=== PATIENT | male | born 1935 | race Caucasian/White ===

== ENCOUNTER 2017-03-10 09:20 | Outpatient (CLI) | payer MEDICARE, BC ==
--- NOTE | 2017-03-10 10:13 | RAD ---
2 VIEWS CHEST: Date: 03/10/17 HISTORY: Dyspnea. COMPARISON: 03/05/17. FINDINGS: Enlarged cardiac silhouette. Pulmonary vessels are prominent. There is atherosclerotic of the aorta. Blunting of the right costophrenic angle. Patchy interstitial opacities are noted. No pneumothorax. D iffuse bone demineralization identified. IMPRESSION: Congestive heart failure. POS: [facility]
== END 2017-03-10 09:21 | disposition home or self-care (01) ==
LOC: RAD 09:20
PROVIDERS: ATTEND Internal Medicine Critical Care Medicine
DX: R06.00 Dyspnea, unspecified (principal); I50.9 Heart failure, unspecified
CPT/HCPCS: 71020

== ENCOUNTER 2017-04-04 11:08 | Emergency (ER) | payer MEDICARE, BC ==
--- NOTE | 2017-04-04 12:20 | RAD ---
PA AND LATERAL CHEST: Date: 04/04/17 HISTORY: Chest pain and shortness of breath. Generalized weakness. COMPARISON: 03/10/17. FINDINGS: There is persistent blunting of the right lateral costophrenic angle which may be related to mild ple ural and parenchymal scarring or persistent very small right pleural effusion. There is increased den sity at the left lung base, which is likely related to superimposition of structures. Lungs are other spain clear. Cardiac silhouette is mildly enlarged. Pulmonary vasculature is within normal limits. Vascular calcif ications seen in thoracic aorta. Mild degenerative changes seen in the spine. IMPRESSION: 1. Persistent blunting of right lateral costophrenic angle which may be related to either a persiste nt small right pleural effusion versus pleural and parenchymal scarring. 2. Increased density left lung base, most likely attributable to superimposition of structures. POS: [facility]
[2017-04-04 12:35] LABS: #Basophils 0.1 thou/uL (0.0-0.2); #Eosinphils 0.5 thou/uL (0.0-0.7); #Lymphocytes 1.2 thou/uL (1.20-3.40); #Monocytes 0.4 thou/uL (0.11-0.59); #Neutrophils 4.9 thou/uL (1.40-6.50); %Basophils 1.6 % (0.0-1.0); %Eosinophils 6.7 % (0.0-10.0); %Lymphocytes 16.8 % (21.0-51.0); %Monocytes 5.3 % (0.0-10.0); Hematocrit 40.5 % (42.0-52.0); Red Blood Cell (RBC) Count 4.23 mill/uL (4.70-6.10)
[2017-04-04 12:41] LABS: PTT 41.5 SEC (22.9-36.1)
[2017-04-04 12:51] LABS: Troponin I 0.018 ng/mL (< 0.028)
[2017-04-04 12:54] LABS: ALT (SGPT) 21 U/L (8-55); AST (SGOT) 20 U/L (5-34); Alkaline Phosphatase 108 U/L (40-150); Anion Gap 14 mmol/L (10-20); BUN (Urea Nitrogen) 28 mg/dL (8.4-25.7); Bilirubin, Total 2.1 mg/dL (0.2-1.2); CK (CPK) 52 U/L (30-200); Calc. Creatinine Clearance 0 mL/min (70-130); Calcium 10.1 mg/dL (7.8-10.44); Carbon Dioxide 30 mmol/L (23-31); Chloride 95 mmol/L (98-107); Estimated GFR-MDRD 44; Globulin 4.5 g/dL (2.4-3.5); Lipase 37 U/L (8-78); Protein, Total 8.3 g/dL (5.8-8.1)
--- NOTE | 2017-04-04 14:56 | CT ---
CTA OF THE CHEST WITH CONTRAST; Date: 04/04/17 COMPARISON: None. HISTORY: Generalized weakness and muscles spasms for a week. Chest pain and elevated D-Dimer. TECHNIQUE: Multiple contiguous axial images were obtained in a CTA of the chest with contrast per pulmonary embo lism protocol. 3D oblique MIP reformats and direct coronal reformats were performed. FINDINGS: The pulmonary arteries are well opacified without filling defects to suggest pulmonary emboli. The he art is enlarged. Calcifications are seen in the coronary arteries and aorta. No hilar or mediastinal lymphadenopathy seen. There are small bilateral pleural effusions. No focal infiltrates are seen. No pneumothorax is seen. No suspicious pulmonary nodules are present. Mild degenerative changes are seen in the spine. There is a small amount of ascites in the upper abdo men. IMPRESSION: 1. No evidence of pulmonary thromboembolism. 2. Small bilateral pleural effusions. 3. Small ascites. POS: [facility]
== END 2017-04-04 15:35 | disposition home or self-care (01) ==
LOC: SCSER 11:08
DX: R07.89 Other chest pain (principal); I48.91 Unspecified atrial fibrillation; E03.9 Hypothyroidism, unspecified; I10 Essential (primary) hypertension; E11.9 Type 2 diabetes mellitus without complications; Z79.4 Long term (current) use of insulin; Z86.711 Personal history of pulmonary embolism
CPT/HCPCS: 71020; 71275; 80053; 82550; 82553; 83690; 83880; 84484; 85025; 85379; 85610; 85730; 93005; 96361; 96374; J2270

== ENCOUNTER 2017-04-27 13:38 | Inpatient (IN) | payer MEDICARE ==
[2017-04-27 14:41] LABS: #Basophils 0.1 thou/uL (0.0-0.2); #Eosinphils 0.5 thou/uL (0.0-0.7); #Monocytes 0.4 thou/uL (0.11-0.59); #Neutrophils 4.6 thou/uL (1.40-6.50); %Basophils 1.1 % (0.0-1.0); %Eosinophils 7.6 % (0.0-10.0); %Lymphocytes 15.4 % (21.0-51.0); %Monocytes 5.6 % (0.0-10.0); %Neutrophils 70.4 % (42.0-75.0); Mean Corpuscular HGB CONC 33.2 g/dL (32.0-36.0); Mean Corpuscular Hemoglobin 31.2 pg (27.0-31.0); Platelet Count 225 thou/uL (130-400); RBC Distribution Width 13.5 % (11.5-14.5); Red Blood Cell (RBC) Count 4.81 mill/uL (4.70-6.10); White Blood Cell (WBC) Count 6.5 thou/uL (4.8-10.8)
[2017-04-27 14:45] LABS: Base Excess 10.5 mEq/L (-2 - +2); Hemoglobin (Hb) 15.3 g/dL (12.6-17.4)
[2017-04-27 14:47] LABS: pH (venous) 7.49 (7.35-7.45)
[2017-04-27 14:48] LABS: Bilirubin Negative (Negative); Blood, Urine Trace (Negative); Clarity Clear (Clear); Glucose, Urine (Dipstick) 500 mg/dL (Negative); Leukocyte Negative (Negative); Nitrite Negative (Negative); Protein, Urine (Dipstick) 30 mg/dL (Neg-Trace); Urobilinogen 0.2 mg/dL (0.2-1.0)
[2017-04-27 14:54] LABS: Bacteria/HPF Rare-Few HPF (None Seen); RBC/HPF 0-3 HPF (0-3); Squamous Epithelial 0-3 HPF (0-3); WBC/HPF 0-3 HPF (0-3)
[2017-04-27 14:59] LABS: ALT (SGPT) 18 U/L (8-55); AST (SGOT) 26 U/L (5-34); Albumin 4.2 g/dL (3.4-4.8); Alkaline Phosphatase 82 U/L (40-150); Anion Gap 18 mmol/L (10-20); BUN (Urea Nitrogen) 48 mg/dL (8.4-25.7); Bilirubin, Total 2.2 mg/dL (0.2-1.2); CKMB 1.7 ng/mL (0-6.6); Calc. Creatinine Clearance 0 mL/min (70-130); Carbon Dioxide 33 mmol/L (23-31); Chloride 80 mmol/L (98-107); Estimated GFR-MDRD 31; Globulin 5.1 g/dL (2.4-3.5); Lipase 60 U/L (8-78); Potassium 3.6 mmol/L (3.5-5.1); Protein, Total 9.3 g/dL (5.8-8.1); Sodium 127 mmol/L (136-145); Troponin I 0.049 ng/mL (< 0.028)
[2017-04-27 15:01] LABS: Glucose 760 mg/dL (83-110)
--- NOTE | 2017-04-27 15:03 | RAD ---
CHEST ONE VIEW: History: Cough. Comparison: 04-04-17 FINDINGS: Heart size is enlarged. Chronic appearing effusions or scarring is seen bilaterally, similar. No pneu mothorax. Mild pulmonary venous congestion. IMPRESSION: Similar appearance of the chest with cardiomegaly, mild pulmonary congestion, chronic effusions versu s extrapleural thickening. When comparing to the CT of 04-04-17, pleural thickening is favored. POS: [facility]
[2017-04-27] MEDS ORDERED: Insulin Regular 300 UNITS/3 ML VIAL ONE (15:12)
[2017-04-27] MEDS ORDERED: Sodium Chloride 0.9% 100 ML ONE (15:16)
[2017-04-27 17:28] VITALS: BMI 34.1
[2017-04-27 17:53] LABS: Glucose Accucheck Confirmation 599 mg/dl (83-110)
[2017-04-27] MEDS ORDERED: Ondansetron HCl/PF 4 MG/2 ML Vial IVP PRN (18:12)
[2017-04-27] MEDS ORDERED: Ondansetron ODT 4 MG TAB SL PRN (18:12)
[2017-04-27] MEDS ORDERED: Sodium Chloride 0.9% 1,000 ML IV SCH (18:15)
[2017-04-27] MEDS ORDERED: Guaifenesin DM 100-10/5 ML UDCUP PO PRN (18:28)
[2017-04-27] MEDS ORDERED: Dextrose 50% Abboject 50 ML SYRINGE SLOW IVP PRN (18:28)
[2017-04-27] MEDS ORDERED: Dextrose 5% in Water 1,000 ML IV PRN (18:28)
[2017-04-27] MEDS ORDERED: HumaLOG 300 UNITS/3 ML VIAL SC PRN (18:28)
[2017-04-27] MEDS ORDERED: Milk Of Magnesia 30 ML UDCUP PO PRN (18:28)
[2017-04-27] MEDS ORDERED: Sodium Chloride 0.9% 1,000 ML IV PRN ×4 (18:31)
[2017-04-27] MEDS ORDERED: CCU Electrolyte Replacement 1 EACH IVPB SCH (18:31)
[2017-04-27] MEDS ORDERED: D5 1/2 NS w/20 mEq KCL 1,000 ML IV PRN (18:31)
[2017-04-27] MEDS ORDERED: NS 0.9% w/ 20 MEQ KCL 1,000 ML IV PRN (18:31)
[2017-04-27] MEDS ORDERED: Dextrose 5 %-0.45 % NaCl 1,000 ML IV PRN (18:31)
[2017-04-27] MEDS ORDERED: Potassium Phosphate 9 MMOL in Sodium Chloride 0.9% 100 ML IVPB PRN (18:38)
[2017-04-27] MEDS ORDERED: Magnesium 2 GM/NS 0.9% 100 ML 2 GM in Premix Bag 1 BAG IVPB PRN (18:38)
[2017-04-27] MEDS ORDERED: Potassium Phosphate 15 MMOL in Sodium Chloride 0.9% 250 ML 250 ML IV PRN (18:38)
[2017-04-27] MEDS ORDERED: Potassium Chloride 40 MEQ in Premix Bag 1 BAG IVPB PRN (18:38)
[2017-04-27] MEDS ORDERED: CCU ELECTROLYTE REPLACEMENT PROTOCOL FS PRN (18:38)
[2017-04-27] MEDS ORDERED: Potassium Chloride 20 MEQ TAB PO PRN (18:38)
[2017-04-27] MEDS ORDERED: Potassium Chloride 40 MEQ in Sodium Chloride 0.9% 250 ML 250 ML IVPB PRN (18:38)
[2017-04-27] MEDS ORDERED: Potassium Phosphate 12 MMOL in Sodium Chloride 0.9% 250 ML 250 ML IV PRN (18:38)
[2017-04-27] MEDS ORDERED: Magnesium Oxide 400 MG TAB PO PRN ×2 (18:38)
[2017-04-27 19:15] LABS: Troponin I 0.033 ng/mL (< 0.028)
[2017-04-27 19:17] LABS: Anion Gap 16 mmol/L (10-20); BUN (Urea Nitrogen) 47 mg/dL (8.4-25.7); Calc. Creatinine Clearance 51 mL/min (70-130); Carbon Dioxide 31 mmol/L (23-31); Chloride 86 mmol/L (98-107); Estimated GFR-MDRD 37; Glucose 488 mg/dL (83-110); Potassium 3.3 mmol/L (3.5-5.1); Sodium 130 mmol/L (136-145)
[2017-04-27] MEDS: Sodium Chloride 0.9% 1,000 ML IV SCH (19:29)
[2017-04-27] MEDS: NS 0.9% w/ 20 MEQ KCL 1,000 ML IV PRN ×2 (19:59→22:14)
--- NOTE | 2017-04-27 20:01 | HP ---
DATE OF ADMISSION: 04/27/2017 ADMITTING PHYSICIAN: Dr. Vishal Norris. PRIMARY CARE PHYSICIAN: Unknown. CHIEF COMPLAINT: Lethargy, hyperglycemia. HISTORY OF PRESENT ILLNESS: The patient is a 81-year-old gentleman who is very cooperative and coher ent. He reports that he has been under undue stress recently and has been noncompliant with his insu nora regimen. He denies chest pain, shortness of breath. Does report vague URI symptoms. He also re ports having intermittent bouts of constipation with his last BM being approximately 2 days ago. REVIEW OF SYSTEMS: The following complete review of systems was negative, unless otherwise mentioned in the HPI or below: Constitutional: Weight loss or gain, sense of well-being, ability to conduct usual activities, exerc ise tolerance. Skin/Breast: Rash, itching, changes in hair growth or loss, nail changes, breast lumps, tenderness, swelling, nipple discharge. Eyes: Vision, double vision, tearing, blind spots, pain. ENT/Mouth: Headaches (location, time of onset, duration, precipitating factors), vertigo, lightheade dness, injury. Vision, double vision, tearing, blind spots, pain, nose bleeding, colds, obstruction, discharge, dental difficulties, gingival bleeding, dentures, neck stiffness, pain, tenderness, masses in thyroid or other areas. Cardiovascular: Precordial pain, substernal distress, palpitations, syncope, dyspnea on exertion, or thopnea, nocturnal paroxysmal dyspnea, edema, cyanosis, hypertension, heart murmurs, varicosities, ph lebitis, claudication. Respiratory: Pain, shortness of breath, wheezing, stridor, cough, hemoptysis, fever or night sweats. Gastrointestinal: Poor appetite, dysphagia, indigestion, abdominal pain, heartburn, eructation, naus ea, vomiting, hematemesis, jaundice, constipation, or diarrhea, abnormal stools (clif-colored, tarry, bloody, greasy, foul smelling), flatulence, hemorrhoids, recent changes in bowel habits. Genitourinary: Urgency, frequency, dysuria, nocturia, hematuria, polyuria, oliguria, unusual (or minna nge in) color of urine, stones, hesitancy, change in size of stream, dribbling, acute retention or in continence, libido, potency. Musculoskeletal: Pain, swelling, redness or heat of muscles or joints, limitation, of motion, muscul ar weakness, atrophy, cramps. Neurologic/Psychiatric: Convulsions, paralyses, tremor, incoordination, paresthesias, difficulties w ith memory of speech, sensory or motor disturbances, or muscular coordination (ataxia, tremor), emoti onal problems, anxiety, depression, previous psychiatric care, unusual perceptions, hallucinations. Allergy/Immunologic: Skin rash, anemia, bleeding tendency, polydipsia, polyuria, intolerance to heat or cold. PAST MEDICAL HISTORY: Hypothyroidism; diabetes, type 2; hypertension; pulmonary disease; pulmonary e mbolism; atrial fibrillation. PAST SURGICAL HISTORY: Right knee replacement, cholecystectomy, thyroidectomy. PSYCHIATRIC HISTORY: Denied. SOCIAL HISTORY: Denies alcohol, drug use or smoking. Lives with family. FAMILY HISTORY: Reviewed and noncontributory. HOME MEDICATIONS: Unable to obtain at this point. DRUG ALLERGIES: PENICILLINS. PHYSICAL EXAMINATION: VITAL SIGNS: Blood pressure 133/63, pulse 74, respirations 20, temperature 98.8, satting 100% on jossy m air. GENERAL: He is in no acute distress, pleasant, cooperative. HEAD: Normocephalic, atraumatic. EYES: PERRL. Extraocular muscles are intact. NECK: Supple, full range of motion. Trachea midline. CHEST: No wheezing, no rhonchi. LUNGS: Clear to auscultation. CARDIOVASCULAR: Irregularly irregular with a systolic ejection murmur of 3/6. ABDOMEN: Nontender, distended, positive bowel sounds. EXTREMITIES: No clubbing, cyanosis. There is 1-2+ edema with venous stasis changes. NEUROLOGIC: Alert and oriented x3, no focal deficits. Cranial nerves II-XII grossly intact. LABORATORY DATA AND IMAGES: EKG showed atrial fibrillation with controlled ventricular response with nonspecific ST and T-wave changes as well as a widened QRS. Chest x-ray performed shows cardiomegal y with mild pulmonary congestion with chronic effusions. CMP shows sodium of 127, potassium 3.6, chl oride 80, carbon dioxide 33, anion gap of 18, BUN 48, creatinine 2.06, blood glucose of 760, calcium 11.0, AST 26, ALT 18, total bilirubin 2.2, troponin I 0.049, CK-MB 1.7, albumin 4.2, lipase 60. CBC shows a white count of 6.5, hemoglobin 15, hematocrit 45.2, platelets 225 with 70% neutrophils. Veno us blood gas shows a pH of 7.49, pCO2 of 47 and pO2 of 45. Urinalysis: Yellow clear, 500 glucose, 3 0 protein, negative ketones, trace blood, negative nitrites, negative leukocyte esterase, with rare b acteria. ASSESSMENT: 1. Hyperglycemia. 2. Atrial fibrillation with controlled ventricular rate. 3. Medical noncompliance. 4. Hypothyroidism. 5. Dehydration. PLAN: The patient will be admitted to [facility] and placed on an insulin drip. We will also provide a ca utious fluid resuscitation with normal saline as patient has a history of volume overload. The patie nt will be placed on deep venous thrombosis prophylaxis with sequential compression devices. We will avoid Lovenox at this time due to his elevated creatinine. We will follow the hyperglycemic protoco l and wean patient off the insulin drip as tolerated.
[2017-04-27] MEDS ORDERED: FLU VACC TS2017-18 (>65YR) 0.5 ML SYRINGE IM ONE (21:00)
[2017-04-27] MEDS: Docusate 100 MG CAP PO SCH (21:08)
[2017-04-27] MEDS ORDERED: Melatonin 3 MG TAB PO PRN (21:30)
[2017-04-27 23:09] LABS: Anion Gap 18 mmol/L (10-20); BUN (Urea Nitrogen) 43 mg/dL (8.4-25.7); Calc. Creatinine Clearance 61 mL/min (70-130); Calcium 10.5 mg/dL (7.8-10.44); Carbon Dioxide 28 mmol/L (23-31); Chloride 92 mmol/L (98-107); Estimated GFR-MDRD 45; Glucose 294 mg/dL (83-110); Potassium 3.8 mmol/L (3.5-5.1); Sodium 134 mmol/L (136-145)
[2017-04-28] MEDS: Sodium Chloride 0.9% 1,000 ML IV SCH (02:48)
[2017-04-28 03:04] LABS: #Basophils 0.1 thou/uL (0.0-0.2); #Lymphocytes 1.8 thou/uL (1.20-3.40); #Monocytes 0.4 thou/uL (0.11-0.59); #Neutrophils 4.1 thou/uL (1.40-6.50); %Basophils 0.8 % (0.0-1.0); %Eosinophils 13.4 % (0.0-10.0); %Lymphocytes 24.2 % (21.0-51.0); %Monocytes 5.1 % (0.0-10.0); %Neutrophils 56.4 % (42.0-75.0); Hemoglobin 14.4 g/dL (14.0-18.0); Mean Corpuscular HGB CONC 34.1 g/dL (32.0-36.0); Mean Corpuscular Hemoglobin 32.9 pg (27.0-31.0); Mean Corpuscular Volume 96.4 fl (80.0-94.0); Mean Platelet Volume 7.2 fL (7.4-10.4); Platelet Count 202 thou/uL (130-400); RBC Distribution Width 14.3 % (11.5-14.5); Red Blood Cell (RBC) Count 4.37 mill/uL (4.70-6.10); White Blood Cell (WBC) Count 7.3 thou/uL (4.8-10.8)
[2017-04-28 03:39] LABS: Anion Gap 15 mmol/L (10-20); BUN (Urea Nitrogen) 40 mg/dL (8.4-25.7); Calc. Creatinine Clearance 66 mL/min (70-130); Calcium 10.5 mg/dL (7.8-10.44); Carbon Dioxide 30 mmol/L (23-31); Chloride 96 mmol/L (98-107); Estimated GFR-MDRD 49; Glucose 208 mg/dL (83-110); Potassium 3.7 mmol/L (3.5-5.1); Sodium 137 mmol/L (136-145)
[2017-04-28] MEDS ORDERED: Dextrose 50% Abboject 50 ML SYRINGE SLOW IVP PRN (08:38)
[2017-04-28] MEDS ORDERED: Dextrose 5% in Water 1,000 ML IV PRN (08:38)
[2017-04-28] MEDS ORDERED: HumaLOG 300 UNITS/3 ML VIAL SC PRN (08:38)
[2017-04-28] MEDS ORDERED: traMADol HCl 50 MG TAB PO PRN (08:42)
[2017-04-28] MEDS ORDERED: Anastrozole 1 MG TAB PO SCH (09:00)
[2017-04-28] MEDS: Docusate 100 MG CAP PO SCH (09:56)
[2017-04-28 11:46] VITALS: BP 125/60; TEMP 98
[2017-04-28] MEDS ORDERED: Rivaroxaban 15 MG TAB PO SCH (17:00)
[2017-04-28] MEDS ORDERED: Gabapentin 300 MG CAP PO SCH (21:00)
--- NOTE | 2017-04-28 23:01 | DIS ---
DATE OF ADMISSION: 04/27/2017 DATE OF DISCHARGE: 04/28/2017 DISCHARGE DIAGNOSES: 1. Hyperglycemia without evidence of diabetic ketoacidosis. 2. Acute renal insufficiency. 3. Chronic atrial fibrillation without rapid ventricular response. 4. History of hypothyroidism. 5. Medical noncompliance. 6. History of pulmonary embolus. 7. Diabetes mellitus type 2. 8. Hypertension. DISCHARGE MEDICATIONS: Resumed home medications as follows, 1. Tresiba 50 units subcu daily. 2. Tramadol as needed. 3. Xarelto 15 mg daily. 4. Gabapentin 300 mg daily. 5. Arimidex 1 mg daily. 6. NovoLog FlexPen as needed. 7. Levothyroxine 112 mcg daily. 8. Fenofibric acid 160 mg daily. 9. Spironolactone 25 mg p.o. b.i.d. The patient told to hold for 2 or 3 more days until seen by PCP . 10. Furosemide 80 mg p.o. daily. The patient told to hold until seen by PCP. PRIMARY CARE PHYSICIAN: None. The patient follows up with some specialist as primary care physician . PRIMARY TEST ENGINEER: Dr. Wallace at [facility]. PRIMARY MAILROOM MANAGER: Dr. Herndon. HISTORY OF PRESENTING ILLNESS: Mr. Bell is a pleasant 81-year-old male with past medical history of hypertension, diabetes mellitus, PE, and atrial fibrillation who presented to the ER with complain ts of lethargy and was found to be hyperglycemic with blood sugar more than 700. He was noticed to b e noncompliant with his insulin regimen due to recent stress. EKG showed atrial fibrillation with co ntrolled ventricular response. His creatinine was found to be elevated at 2.06 with a BUN of 48. Ch est x-ray showed mild pulmonary vascular congestion. He was started on insulin drip for hyperglycemi a and was admitted to [facility]. Please note that he did not have evidence of diabetic ketoacidosis upon presentation. HOSPITAL COURSE: The patient recovered very quickly with stabilization of blood sugar and was eager to go home. Insulin drip was turned off after he received short-acting insulin. Tresiba was also re started. The patient was started on diet, which he tolerated very well. The patient is normal and t o follow up with primary care physician. His creatinine has improved with IV fluids. 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 He is instructed to hold his lisinopril and Lasix for a few more days. He was seen and examined prior to discharge. PHYSICAL EXAMINATION: Include, VITAL SIGNS: Temperature 98, heart rate 76, respirations 16, saturating 96% on room air, blood press ure 125/60, no acute distress. CHEST: Clear to auscultation. CARDIOVASCULAR: Rate and rhythm is regular. ABDOMEN: Soft, nontender, nondistended. LABORATORY EXAMINATION: Serum creatinine has improved from 2.06-1.39 and BUN has improved from 48-40 . Blood sugar 261. Discharge plan was discussed with the patient and his . PT, OT and home health was offered, but both of them declined, so he was discharged home under the care of his family.
[2017-04-29] MEDS ORDERED: Levothyroxine Sodium 112 MCG TAB PO SCH (06:00)
[2017-04-29] MEDS ORDERED: TRESIBA INSULIN SC SCH (09:00)
[2017-04-29] MEDS ORDERED: Fenofibrate Nanocrystallized 145 MG TAB PO SCH (09:00)
--- NOTE | 2017-05-03 19:23 | PQF ---
BREE LONG RICHA MD [id number] [facility]- B12 [id number] CLINICAL DOCUMENTATION CLARIFICATION FORM: POST DISCHARGE Addendum to original discharge summary date: ____ Late entry note date: __ DATE: 05/03/17 ATTN: Rae Nava MD Please exercise your independent, professional judgment in responding to the clarification form. Clinical indicators are provided on the bottom of this form for your review Discharge Summary Discharge Diagoses: #2. Acute renal insfficiency Please check appropriate box(s): ( X) Acute Renal Insuffiency NOS [ ] Acute Renal Failure (ARF) / Acute Kidney Injury (HENRIQUE) (Please specify associated condition, if applicable) [ ] Acute Tubular Necrosis (ATN) [ ] Acute Interstitial Nephritis (AIN) [ ] Acute Cortical Necrosis [ ] Acute Medullary Necrosis [ ] Other Etiology or underlying conditions related to the diagnosis of ARF/ HENRIQUE: [ ] Acute on Chronic Renal Failure please specify Stage of CKD (see below) [ ] CKD without ARF/HENRIQUE please specify Stage of CKD [ ] ESRD [ ] Other diagnosis [ ] Unable to determine In addition, please specify: Present on Admission (POA): [X ] Yes [ ] No [ ] Unable to determine National Kidney Foundation Guidelines for CKD Staging Stage I Kidney damage with normal or increased GFRGFR > 90 Stage IIKidney damage with mildly decreased GFRGFR 60-89 Stage III Kidney damage with moderately decreased GFRGFR 30-59 Stage IVKidney damage with severely decreased GFRGFR 16-29 Stage VKidney failure GFR<15 ESRDEnd Stage Renal Disease On dialysis For continuity of documentation, please document condition throughout progress notes and discharge summary. Thank You. CLINICAL INDICATORS - SIGNS / SYMPTOMS / LABS Decreased urine output (< 30 ml hr) / prolonged azotemia / documentation of oliguria / anuria) Abnormal labs (BUN, creatinine, K+, creatinine clearance, low GFR) Hypotension with prolonged decreased renal perfusion Urinalysis (epithelial cells, muddy brown granular casts, and/or coarse granular casts urine Na > 40) Metabolic acidosis Nausea / Vomiting / Diarrhea Edema Lethargy or fatigue RISK FACTORS Dehydration Use of LO inhibitors, NSAIDS, diuretics Nephrotoxins (drugs and contrast) Primary renal disease, vasculitis or interstitial nephritis Obstructive Nephropathy Shock TREATMENTS: IV ?uid challenge result Pharmacy / nephrology consult Dialysis Correction of electrolytes / acidosis (This form is maintained as a part of the permanent medical record) 2014 [employer] All Rights Reserved Obiorattila Zayas [email or web address] [phone] MTDNiels
--- NOTE | 2017-06-04 15:48 | EKG ---
Test Reason : Blood Pressure : / mmHG Vent. Rate : 083 BPM Atrial Rate : 055 BPM P-R Int : 000 ms QRS Dur : 122 ms QT Int : 406 ms P-R-T Axes : 000 -46 029 degrees QTc Int : 477 ms Atrial fibrillation Left anterior fascicular block Possible Anterior infarct , age undetermined Abnormal ECG Confirmed by BECKI PRATT D.O. ([id number]), managing editor CHRISTIN CORRAL ([id number]) on 06/04/2017 3:47:59 PM Referred By: Confirmed By:BECKI PRATT D.O.
== END 2017-04-28 13:27 | disposition home or self-care (01) | DRG 639 ==
LOC: SCSER 13:38 → IMCU/EMU 15:41
PROVIDERS: ADMIT Internal Medicine Addiction Medicine; ATTEND Internal Medicine Addiction Medicine
DX: E11.65 Type 2 diabetes mellitus with hyperglycemia (principal); I48.2 Chronic atrial fibrillation; E86.0 Dehydration; E03.9 Hypothyroidism, unspecified; N28.9 Disorder of kidney and ureter, unspecified; Z86.711 Personal history of pulmonary embolism; Z79.4 Long term (current) use of insulin; Z88.0 Allergy status to penicillin; Z91.14 Patient's other noncompliance with medication regimen; Z96.651 Presence of right artificial knee joint
CPT/HCPCS: 36415; 36416; 71045; 80048; 81003; 81015; 82553; 82805; 83690; 83880; 84484; 85025; 90471; 90682; 93005; 96361; 96365; 96376; G0008; J1815; J7050; Q2036

== ENCOUNTER 2017-08-24 11:21 | Emergency (ER) | payer MEDICARE | END 2017-08-24 11:55 | disposition home or self-care (01) | LOC: SCSER 11:21 | DX: L98.9 Disorder of the skin and subcutaneous tissue, unspecified (principal); E03.9 Hypothyroidism, unspecified; E11.9 Type 2 diabetes mellitus without complications; I48.91 Unspecified atrial fibrillation; I10 Essential (primary) hypertension; Z79.4 Long term (current) use of insulin; Z79.899 Other long term (current) drug therapy | CPT/HCPCS: 99283 ==

== ENCOUNTER 2017-08-31 09:46 | Outpatient (CLI) | payer MEDICARE, BC ==
--- NOTE | 2017-08-31 11:25 | RAD ---
2 VIEW CHEST: Date: 08/31/17 COMPARISON: Single view chest dated 04/27/17. INDICATION: Dyspnea. FINDINGS: There is a moderate left effusion. Diffuse interstitial reticulonodular opacification seen bilaterall y. The cardiac silhouette is enlarged, as is pulmonary vasculature. There is vascular calcification a nd osseous degenerative change. IMPRESSION: 1. New pleural effusion, left side, comparing to prior exam, moderate in volume. 2. Enlarged cardiac silhouette and pulmonary vasculature. 3. Interstitial reticulonodular opacities bilaterally, which could be on the basis of atypical infec tion. Component of superimposed edema may also be present. Recommend continued follow-up to resolution. POS: [facility]
== END 2017-08-31 09:47 | disposition home or self-care (01) ==
LOC: RAD 09:46
PROVIDERS: ATTEND Internal Medicine Critical Care Medicine
DX: R06.00 Dyspnea, unspecified (principal); J90 Pleural effusion, not elsewhere classified; R91.8 Other nonspecific abnormal finding of lung field
CPT/HCPCS: 71046

== ENCOUNTER 2017-09-08 09:38 | Outpatient (CLI) | payer MEDICARE, BC ==
--- NOTE | 2017-09-08 11:16 | RAD ---
CHEST TWO VIEWS: HISTORY: Dyspnea. COMPARISON: 08/31/2017 FINDINGS: Two views of the chest show an enlarged but stable cardiomediastinal silhouette. There is a small le ft pleural effusion, unchanged. Increased interstitial markings are present. IMPRESSION: 1. Cardiomegaly. 2. Small left pleural effusion. POS: [facility]
== END 2017-09-08 09:39 | disposition home or self-care (01) ==
LOC: RAD 09:38
PROVIDERS: ATTEND Internal Medicine Critical Care Medicine
DX: R06.00 Dyspnea, unspecified (principal); I51.7 Cardiomegaly; J90 Pleural effusion, not elsewhere classified
CPT/HCPCS: 71046

== ENCOUNTER 2017-09-13 09:06 | Inpatient (IN) | payer MEDICARE, BC ==
--- NOTE | 2017-09-13 11:00 | RAD ---
CHEST 2 VIEWS: Date: 09/13/17 COMPARISON: 09/08/17. HISTORY: Dyspnea. FINDINGS: Persistent pleural and parenchymal change in the left and right lung bases. Stable cardiac silhouette . Atherosclerosis of aorta is normal. Stable fullness of the pulmonary vasculature. IMPRESSION: No significant interval change. POS: [facility]
[2017-09-13] MEDS ORDERED: Dextrose 5% in Water 1,000 ML IV PRN (11:39)
[2017-09-13] MEDS ORDERED: Dextrose 50% Abboject 50 ML SYRINGE IVP PRN (11:39)
[2017-09-13] MEDS ORDERED: Metolazone 5 MG TAB PO SCH (12:00)
[2017-09-13 13:53] VITALS: BMI 40.0
[2017-09-13 14:13] LABS: #Eosinphils 0.6 thou/uL (0.0-0.7); #Lymphocytes 0.8 thou/uL (1.20-3.40); #Monocytes 0.3 thou/uL (0.11-0.59); #Neutrophils 3.6 thou/uL (1.40-6.50); %Basophils 0.9 % (0.0-1.0); %Eosinophils 11.5 % (0.0-10.0); %Lymphocytes 14.6 % (21.0-51.0); %Monocytes 5.9 % (0.0-10.0); %Neutrophils 67.1 % (42.0-75.0); Hemoglobin 13.2 g/dL (14.0-18.0); Mean Corpuscular HGB CONC 31.4 g/dL (32.0-36.0); Mean Corpuscular Hemoglobin 31.3 pg (27.0-31.0); Mean Corpuscular Volume 99.7 fl (80.0-94.0); Platelet Count 179 thou/uL (130-400); RBC Distribution Width 14.2 % (11.5-14.5); Red Blood Cell (RBC) Count 4.23 mill/uL (4.70-6.10); White Blood Cell (WBC) Count 5.4 thou/uL (4.8-10.8)
[2017-09-13 14:27] LABS: ALT (SGPT) 27 U/L (8-55); AST (SGOT) 29 U/L (5-34); Albumin 3.6 g/dL (3.4-4.8); Alkaline Phosphatase 339 U/L (40-150); Anion Gap 11 mmol/L (10-20); BUN (Urea Nitrogen) 17 mg/dL (8.4-25.7); Bilirubin, Total 1.9 mg/dL (0.2-1.2); Calc. Creatinine Clearance 85 mL/min (70-130); Calcium 9.4 mg/dL (7.8-10.44); Carbon Dioxide 32 mmol/L (23-31); Chloride 101 mmol/L (98-107); Estimated GFR-MDRD 58; Glucose 154 mg/dL (83-110); Potassium 3.3 mmol/L (3.5-5.1); Protein, Total 7.6 g/dL (5.8-8.1); Sodium 141 mmol/L (136-145)
[2017-09-13] MEDS ORDERED: Furosemide 100 MG/10 ML VIAL SLOW IVP SCH (16:00)
[2017-09-13] MEDS: Rivaroxaban 15 MG TAB PO SCH (17:07)
[2017-09-13] MEDS: Insulin Regular 300 UNITS/3 ML VIAL SC PRN (17:07)
[2017-09-13] MEDS ORDERED: Potassium Chloride 20 MEQ TAB PO SCH (17:30)
[2017-09-13] MEDS: Mometasone/Formoterol 120 PUFF INHALER INH SCH (19:03)
[2017-09-14 04:47] LABS: Anion Gap 9 mmol/L (10-20); BUN (Urea Nitrogen) 17 mg/dL (8.4-25.7); Calc. Creatinine Clearance 92 mL/min (70-130); Calcium 9.1 mg/dL (7.8-10.44); Carbon Dioxide 33 mmol/L (23-31); Chloride 102 mmol/L (98-107); Estimated GFR-MDRD 64; Glucose 177 mg/dL (83-110); Potassium 3.7 mmol/L (3.5-5.1); Sodium 140 mmol/L (136-145)
[2017-09-14] MEDS: Insulin Regular 300 UNITS/3 ML VIAL SC PRN ×3 (05:12→17:31)
[2017-09-14] MEDS: Levothyroxine Sodium 112 MCG TAB PO SCH (05:12)
[2017-09-14] MEDS: Mometasone/Formoterol 120 PUFF INHALER INH SCH ×2 (07:42→18:28)
[2017-09-14] MEDS ORDERED: Spironolactone 25 MG TAB PO SCH (08:00)
[2017-09-14] MEDS: Potassium Chloride 20 MEQ TAB PO SCH ×2 (08:49→17:31)
[2017-09-14] MEDS: Spironolactone 25 MG TAB PO SCH ×2 (08:50→17:31)
[2017-09-14] MEDS: Metolazone 5 MG TAB PO SCH (08:50)
[2017-09-14] MEDS ORDERED: Furosemide 100 MG/10 ML VIAL SLOW IVP SCH (09:00)
--- NOTE | 2017-09-14 11:27 | PRG ---
DATE OF SERVICE: 09/14/2017 HISTORY: Mr. Bell feels somewhat better, but he still feels very short of breath with any activit y and very fatigued. PHYSICAL EXAMINATION: VITAL SIGNS: Blood pressure 135/63, pulse 70, it is irregular. LUNGS: Neck veins are severely distended. CARDIAC: Irregular, irregular. ABDOMEN: Severe ascites. EXTREMITIES: Severe edema. The feet are purplish discoloration, venous insufficiency. PERTINENT LABORATORIES: Potassium is 3.7, creatinine is 1.1. The I&O is only -1 liter. Echocardiogram showed an ejection fraction was normal, but he has severely enlarged right ventricle and right atrium. The pulmonary artery pressure approximately 60 mmHg syst olic. CONCLUSION: 1. Severe right heart failure. 2. Chronic atrial fibrillation. 3. Ascites secondary to right heart failure. 4. Pleural effusion secondary right heart failure. 5. Echo shows aortic stenosis which appears mild to moderate, peak gradient 25 mmHg systolic, mean g radient 12 mmHg systolic. PLAN: 1. I have asked him to make sure he elevates his feet to try to help mobilize the edema. 2. The patient has anasarca with severe volume overload, probably estimated at least 30 pounds of ex cess fluid. 3. The patient will continue diuresis, elevate his feet as much as possible. Long-term prognosis with this problem is likely poor.
--- NOTE | 2017-09-14 14:06 | CON ---
DATE OF CONSULTATION: 09/14/2017 Mr. Bell is a very pleasant 82-year-old male who has been followed in my clinic. He has a history of diastolic heart failure. We discussed workup for sleep apnea, but he has not been interested in this in the past. He has been seen twice in the last 2 weeks with fluid retention. His diuretic dose was adjusted and he was put on fluid restriction (he was drinking a gallon of water plus ice a day). He said he was feeling much better and then suddenly started feeling worse and was admitted by Dr. Herndon. PAST MEDICAL HISTORY: 1. Remarkable for diastolic dysfunction. 2. Diabetes. 3. Obesity. 4. Hypothyroidism. 5. Hypertension. 6. History of atrial fibrillation. 7. History of knee replacement. 8. History of a cholecystectomy. 9. History of a thyroidectomy. 10. History of mitral regurgitation and aortic sclerosis in the past. 11. History of chronic anticoagulation in the past. 12. History of a CT pulmonary angiogram done in 03/2017 showing small effusions and a small amount of ascites. FAMILY HISTORY: Negative for lung disease at an early age. REVIEW OF SYSTEMS: 10 point system review otherwise negative. His main complaint is just abdominal and lower extremity swelling. PHYSICAL EXAMINATION: GENERAL: Patient is very pleasant gentleman followed in my clinic. VITAL SIGNS: Afebrile, heart rate 68, respiratory rate 20, oximetry 92 on room air. Intake and outputs negative 1 liter in the last 24 hours. HEAD AND NECK: Unremarkable. LUNGS: He has decreased breath sounds at his left base. HEART: Regular rhythm. S1 and S2 are normal. ABDOMEN: Soft and nontender. It was massively distended. EXTREMITIES: With pitting edema all the way up to his thighs. Oximetry is 92% on room air. Chest radiograph shows a left effusion. IMPRESSION: 1. Massive ascites and lower extremity edema secondary to right heart failure, predominantly secondary to diastolic dysfunction. 2. Sleep apnea has never been completely ruled out. He now says he is willing to undergo a sleep study. I will empirically treat him with CPAP while he is here. We will see how he does. This is a 50 minute consult with greater than 50% of the time spent on the unit coordination of care. ALEJO
[2017-09-14] MEDS: Rivaroxaban 15 MG TAB PO SCH (17:31)
[2017-09-14] MEDS ORDERED: Furosemide 40 MG/4 ML VIAL SLOW IVP SCH (20:00)
[2017-09-15 05:22] LABS: Anion Gap 11 mmol/L (10-20); BUN (Urea Nitrogen) 17 mg/dL (8.4-25.7); Calc. Creatinine Clearance 88 mL/min (70-130); Calcium 9.7 mg/dL (7.8-10.44); Carbon Dioxide 31 mmol/L (23-31); Chloride 99 mmol/L (98-107); Estimated GFR-MDRD 60; Glucose 232 mg/dL (83-110); Potassium 3.8 mmol/L (3.5-5.1); Sodium 137 mmol/L (136-145)
[2017-09-15] MEDS: Levothyroxine Sodium 112 MCG TAB PO SCH (06:34)
[2017-09-15] MEDS: Mometasone/Formoterol 120 PUFF INHALER INH SCH ×2 (06:47→18:04)
[2017-09-15] MEDS: Metolazone 5 MG TAB PO SCH (08:51)
[2017-09-15] MEDS: Potassium Chloride 20 MEQ TAB PO SCH ×2 (08:51→18:03)
[2017-09-15] MEDS: Spironolactone 25 MG TAB PO SCH ×2 (08:52→18:04)
[2017-09-15] MEDS: Insulin Regular 300 UNITS/3 ML VIAL SC PRN ×3 (08:52→18:04)
[2017-09-15] MEDS ORDERED: Furosemide 100 MG/10 ML VIAL SLOW IVP SCH (09:00)
--- NOTE | 2017-09-15 13:15 | PRG ---
DATE OF SERVICE: 09/15/2017 SUBJECTIVE: Mr. Bell states he is putting out a lot of urine, but it does not appear like it is b eing accurately recorded. His weight has gone from 271-278, which also does not make sense. He has no chest pain. OBJECTIVE: VITAL SIGNS: Blood pressure 123/58, pulse is 70, it is irregular. LUNGS: Clear. CARDIAC: Irregularly irregular. ABDOMEN: Soft, nontender. EXTREMITIES: Reveal severe edema. ABDOMEN: Severe ascites. ASSESSMENT: Congestive heart failure, diastolic, difficult to control. PLAN: 1. Continue diuretics. 2. Elevate feet as much as possible. Over the time I have gone in the room, he is sitting at the be dside and tells he needs to avoid that. Hopefully, home soon.
--- NOTE | 2017-09-15 13:48 | PQF ---
CLINICAL DOCUMENTATION IMPROVEMENT CLARIFICATION FORM: ICD-10 Updated PLEASE DO AN ADDENDUM TO THE PROGRESS NOTE WITH ANY DOCUMENTATION UPDATES OR ADDITIONS AND CARRY THROUGH TO DC SUMMARY. THANK YOU. DATE: 09/15/17 ATTN: DR. WARE Please exercise your independent, professional judgment in responding to the clarification form. Clinical indicators are provided on the bottom of this form for your review Please check appropriate box(s): HEART FAILURE: A. TYPE: [ ] Systolic / HFrEF [ ] Diastolic / HFpEF [ ] Combined Systolic / Diastolic B. ACUITY [ ] Acute [ ] Acute on Chronic [ ] Chronic [ ] Other diagnosis [ ] Unable to determine In addition, please specify: Present on Admission (POA): [ ] Yes [ ] No [ ] Unable to determine For continuity of documentation, please document condition throughout progress notes and discharge summary. Thank You. CLINICAL INDICATORS - SIGNS / SYMPTOMS / LABS PROGRESS NOTE 09/14: "SEVERE RIGHT HEART FAILURE" CONSULTATION NOTE 09/14: "H/O DIASTOLIC DYSFUNCTION" ECHO REPORT: "EJECTION FRACTION IS VISUALLY ESTIMATED AT 55-60%" RISKS: HYPERTENSION AORTIC STENOSIS TREATMENT: IV LASIX (09/14-PRESENT) ALDACTONE ZAROXOLYN CARDIOLOGY CONSULT (This form is maintained as a part of the permanent medical record) 2014 [employer]. All Rights Reserved TRINI [email or web address] Office: [phone] [facility] HOSPITALNiels
[2017-09-15] MEDS: Furosemide 100 MG/10 ML VIAL SLOW IVP SCH (15:53)
[2017-09-15] MEDS: Rivaroxaban 15 MG TAB PO SCH (18:03)
--- NOTE | 2017-09-15 18:40 | PRG ---
DATE OF SERVICE: 09/15/2017 SUBJECTIVE: He says he is feeling about the same. OBJECTIVE: VITAL SIGNS: He is afebrile, heart rate is 60, respiratory rate is 18, oximetry is 94 on 2 liters, b lood pressure 143/64. Intake and outputs negative 1300 mL. Weights that he gained 7 pounds even tho ugh his intake and output is negative 1300 mL. I have asked the nurses to weigh him on a standing sc osvaldo. The reported weight on the staining scale is 264, which puts him down 7 pounds since he came in , which would make more sense. LUNGS: Remarkable for decreased breath sounds at his left base. HEART: Regular rhythm. ABDOMEN: Soft. LABORATORY DATA: Electrolytes are normal. His BUN is still normal. His creatinine is still 1.17. Glucoses are in the 200 range. IMPRESSION AND PLAN: 1. Diastolic dysfunction. 2. Probable sleep apnea. CPAP has been empirically ordered, could get him a sleep study once he is discharged from the hospital.
[2017-09-16] MEDS: Furosemide 100 MG/10 ML VIAL SLOW IVP SCH ×2 (05:42→13:56)
[2017-09-16] MEDS: Levothyroxine Sodium 112 MCG TAB PO SCH (05:43)
[2017-09-16] MEDS: Mometasone/Formoterol 120 PUFF INHALER INH SCH ×2 (06:31→18:54)
[2017-09-16] MEDS: Metolazone 5 MG TAB PO SCH (08:49)
[2017-09-16] MEDS: Spironolactone 25 MG TAB PO SCH ×2 (08:49→16:19)
[2017-09-16] MEDS: Potassium Chloride 20 MEQ TAB PO SCH ×2 (08:50→16:19)
[2017-09-16] MEDS: Insulin Regular 300 UNITS/3 ML VIAL SC PRN ×2 (08:51→12:27)
[2017-09-16 08:57] LABS: Anion Gap 13 mmol/L (10-20); BUN (Urea Nitrogen) 17 mg/dL (8.4-25.7); Calc. Creatinine Clearance 69 mL/min (70-130); Calcium 10.2 mg/dL (7.8-10.44); Carbon Dioxide 34 mmol/L (23-31); Chloride 94 mmol/L (98-107); Estimated GFR-MDRD 49; Glucose 248 mg/dL (83-110); Potassium 3.6 mmol/L (3.5-5.1); Sodium 137 mmol/L (136-145)
--- NOTE | 2017-09-16 09:34 | PRG ---
DATE OF SERVICE: 09/16/2017 SUBJECTIVE: Mr. Bell is not having chest pain or shortness of breath. Still with tremendous sunita a. OBJECTIVE: VITAL SIGNS: Blood pressure 127/59, pulse 73, and the weight is recorded is 252 this morning and 271 at least the day after he came in. ASSESSMENT: 1. Diastolic heart failure. 2. Renal function, worsening with a creatinine that has gone up to 1.39. 3. Extremely volume overloaded. PLAN: 1. Have to reduce furosemide. 2. We will stop metolazone. 3. Recheck basic metabolic panel tomorrow. I have stressed to this patient multiple times it is critical to keep his feet elevated. I have seen him several times in the hospital, he has never had his feet elevated when I have gone in and was al ways sitting up at the bedside. He says he had his feet elevated last night, but I told him it is im portant to elevate his feet after the diuretic dose to mobilize the edema. Prognosis is guarded in t his patient fpc.
--- NOTE | 2017-09-16 10:16 | PRG ---
DATE OF SERVICE: 09/16/2017 He continues to diurese. His weight is recorded as 252 today. The son tells me that he thinks that they are missing some of the urine collection, so that the intake and output is not accurate. PHYSICAL EXAMINATION: VITAL SIGNS: Heart rate 73, respiratory rate 17, oximetry is 98. LUNGS: Clear. HEART: Regular rhythm. IMPRESSION: 1. Congestive heart failure (diastolic). 2. Pulmonary hypertension secondary in part to diastolic dysfunction probably secondary to untreated sleep apnea. I placed an order for empiric CPAP. I will continue to follow with the other physicians caring for him.
[2017-09-16] MEDS ORDERED: Dextrose 50% Abboject 50 ML SYRINGE SLOW IVP PRN (13:50)
[2017-09-16] MEDS ORDERED: Dextrose 5% in Water 1,000 ML IV PRN (13:50)
[2017-09-16] MEDS: Rivaroxaban 15 MG TAB PO SCH (17:11)
[2017-09-16] MEDS: HumaLOG 300 UNITS/3 ML VIAL SC PRN (17:14)
[2017-09-16] MEDS: Insulin Glargine 40 UNITS in Pre-Filled Syringe SC SCH (20:36)
[2017-09-17] MEDS: Furosemide 100 MG/10 ML VIAL SLOW IVP SCH ×2 (06:21→15:26)
[2017-09-17] MEDS: Levothyroxine Sodium 112 MCG TAB PO SCH (06:21)
[2017-09-17] MEDS: Mometasone/Formoterol 120 PUFF INHALER INH SCH ×2 (06:27→19:05)
[2017-09-17] MEDS: Potassium Chloride 20 MEQ TAB PO SCH ×2 (08:26→16:46)
[2017-09-17] MEDS: HumaLOG 300 UNITS/3 ML VIAL SC PRN ×4 (08:26→21:31)
[2017-09-17] MEDS: Spironolactone 25 MG TAB PO SCH ×2 (08:26→16:46)
--- NOTE | 2017-09-17 11:50 | PDOC.PN ---
- Subjective Encounter Start Date: 09/17/17 Encounter Start Time: 08:50 Pt sitting up eating breakfast, slept pretty well, no PND, no DO, denies orthopnea. good UOP and response to diuresis, hoping he gets to go home today No F/c, no N/V/d/C, no CP or sOB otherwise, no acute events all systems reviewed and neg x as per HPI - Objective MAR Reviewed: Yes Vital Signs & Weight: Vital Signs (12 hours) Temp Pulse Resp BP BP Pulse Ox 09/17/17 08:35 98.6 F 64 18 94 L 09/17/17 08:23 98.6 F 64 18 123/58 L 94 L 09/17/17 06:27 71 16 95 09/17/17 04:00 70 18 135/63 92 L Weight Admit Weight 271 lb 4.8 oz Weight 249 lb I&O: 09/16/17 09/17/17 09/18/17 06:59 06:59 06:59 Intake Total 1560 940 Output Total 3550 1999 -1989 Result Diagrams: 09/13/17 14:00 09/16/17 08:26 Additional Labs: Accuchecks 09/17/17 09/16/17 09/16/17 05:49 20:37 16:48 POC Glucose 220 H 350 H 321 H Radiology Reviewed by me: Yes EKG Reviewed by me: Yes Phys Exam - Physical Examination Constitutional: NAD HEENT: PERRLA, moist MMs, sclera anicteric, oral pharynx no lesions Neck: no nodes, no JVD, supple, full ROM Respiratory: no wheezing, no rhonchi bibasialr rales, less pronounced Cardiovascular: no rub, irregular 3/6 JEFE RUSB Gastrointestinal: soft, non-tender, no distention, positive bowel sounds Musculoskeletal: no edema Neurological: non-focal, normal sensation, moves all 4 limbs Lymphatic: no nodes Psychiatric: normal affect, A&O x 3 Skin: no rash, normal turgor, cap refill <2 seconds Dx/Plan - Plan cont current plan of care, social services assistant, respiratory therapy, out of bed/ ambulate * . home possibly today, per cardiology will follow while remains in-house. would resume regular home insulin on d/c
--- NOTE | 2017-09-17 13:25 | CON ---
DATE OF CONSULTATION: 09/16/2017 PRIMARY CARE PHYSICIAN: Vladisalv Martinez M.D. REQUESTING PHYSICIAN: Ron Herndon M.D. REASON FOR CONSULTATION: Medical management. HISTORY OF PRESENT ILLNESS: Mr. Bell is an 82-year-old gentleman with a history of chronic diasto lic congestive heart failure, aortic stenosis, obstructive sleep apnea probably, diabetes, obesity, h ypertension, who was admitted to the hospital on 09/14/2017 for acute on chronic diastolic congestive heart failure exacerbation. He has been undergoing diuresis with Dr. Herndon; however, it did not tu rn around as quickly as he expected to, as Dr. Herndon expected him to be here for 1 or 2 nights. The patient continued to have elevated blood sugars and so we were consulted for management. The patient denies any chest pain or shortness of breath at present. No nausea or vomiting. He was sleeping well. No fevers, chills, cough, or sputum production. PAST MEDICAL HISTORY: 1. Chronic diastolic congestive heart failure. 2. Aortic stenosis. 3. Obstructive sleep apnea. 4. Diabetes mellitus, type 2, insulin-dependent. 5. Obesity. 6. Hypertension. 7. Hypothyroidism. 8. Chronic or paroxysmal atrial fibrillation. 9. Mitral regurgitation. 10. Chronic anticoagulation. PAST SURGICAL HISTORY: Includes a knee replacement, gallbladder removal, and thyroidectomy. He has had multiple heart procedures in the past including PTCAs and echocardiograms. HOME MEDICATIONS: 1. Arimidex 1 mg p.o. daily. 2. Fenofibrate 160 mg p.o. daily. 3. Lasix 80 mg daily. 4. NovoLog sliding scale. He takes 10+ units before each meal depending on how his sugar is. 5. Tresiba 50 units daily. 6. Levothyroxine 112 mcg daily. 7. Xarelto 15 mg p.o. q.p.m. 8. Aldactone 25 mg p.o. b.i.d. 9. Tramadol 50 mg p.o. q.8 hours p.r.n. ALLERGIES: PENICILLIN. FAMILY HISTORY: Negative for clotting or bleeding disorder, no immune dysfunction, no premature nallely nary artery disease. SOCIAL HISTORY: The patient denies alcohol, drugs, or tobacco use. REVIEW OF SYSTEMS: All systems reviewed and negative except as stated as per HPI. PHYSICAL EXAMINATION: VITAL SIGNS: Temperature 97.4, pulse 74, blood pressure 130/70, respiratory rate 18, satting 92% on room air. GENERAL: He is awake, alert, oriented x3. He was sleeping, but easily arousable. He appears to be in no respiratory distress. HEENT: Normocephalic, atraumatic. His pupils equal, round, reactive to light bilaterally. Mucous m embranes are moist. He has no visible lesions or thrush. NECK: Supple. No lymphadenopathy, no JVD. He has no palpable thyroid. He has normal carotid upstr okes. I do not appreciate bruits. LUNGS: Clear anteriorly, and posteriorly, there are some bibasilar crackles. CARDIOVASCULAR: He has a normal S1 and S2. He has a 3-4/6 systolic ejection murmur heard in the rig ht upper sternal border. He does have a faint diastolic rumble. ABDOMEN: Soft, is obese. It is nontender. He has good bowel sounds in all 4 quadrants. There is n o rebound, rigidity, or guarding. No evidence of fluid. SKIN: Warm, moist, and well perfused. He has no rash or lesions. EXTREMITIES: He does have a 1+ lower extremity edema, just above the ankles. MUSCULOSKELETAL EXAM: Normal to inspection. Large joints appear normal. There is no inflammation. No palpable effusions. NEUROLOGIC EXAM: Shows cranial nerves II-XII to be grossly intact. He has no focal deficits, normal strength, and normal speech. LABORATORY DATA: Sodium 137, potassium 3.6, chloride 94, bicarbonate 34, BUN 17, creatinine 1.39, gl ucose 248, and calcium of 10.2. CBC showed a white count of 5.4, hemoglobin of 13.2, hematocrit of 4 2.2, and platelet count 179,000 with a normal differential. Review of his blood sugars, up to the time of this dictation, revealed blood sugars more recently in the 224-299 today before breakfast and lunch; prior to that, it has been in the high 200s to low 300s since admission. ASSESSMENT AND PLAN: 1. Diabetes mellitus, type 2, with hyperglycemia: Patient is normally on Tresiba, which he is not g etting here. He is unsure if he is following a good diabetic diet. We do not have Tresiba here, but we do have long-acting insulin with Lantus. We will start him at 40 units of Lantus daily and give him his first dose now and then q.p.m. after that. In the meantime, he was on aggressive sliding sca les. I think he gets more than 80 units a day anyways. We will use bedtime sliding scale as well. Once we see how much he is requiring, we certainly could converse that to preprandial insulin plus a sliding scale on top of that. 2. Hypertension, controlled. 3. Obesity. 4. Hypothyroidism, continue his replacement. 5. Acute on chronic diastolic congestive heart failure: Echocardiogram is pending. [facility]. 6. Probable obstructive sleep apnea, Pulmonary was consulted. 7. Chronic atrial fibrillation. 8. Chronic anticoagulation with Xarelto, continue. Thank you very much for this consult. I will follow along with you.
[2017-09-17] MEDS: Rivaroxaban 15 MG TAB PO SCH (16:46)
--- NOTE | 2017-09-17 19:10 | PRG ---
DATE OF SERVICE: 09/17/2017 SERVICE: Pulmonary Medicine. INTERVAL HISTORY: The patient is doing fantastic from a respiratory standpoint. He came in with elayne athing difficulties and lower extremity swelling. Both of those issues have improved dramatically si nce being here. Denies any current chest pain, fevers, chills, nausea, vomiting, shortness of breath . He does not like using BiPAP. That being said, he would like to talk to Dr. Amaya in the outpatie nt setting about whether or not he should pursue a polysomnogram. PHYSICAL EXAMINATION: VITAL SIGNS: Afebrile, pulse 77, blood pressure 125/57, respirations 18, saturation 92% on room air. GENERAL: The patient is awake, alert, in no apparent distress. LUNGS: Excellent air entry. Dependent crackles are minimal. There is no prolonged expiratory phase or wheezing appreciated. HEART: Normal rate, regular. ABDOMEN: Soft, nontender, nondistended. Bowel sounds are positive. MUSCULOSKELETAL: No cyanosis or clubbing. There is 1+ pitting, which is symmetric bilaterally. He has got chronic stasis changes in the bilateral lower extremities. GENITOURINARY: No Seay. NEUROLOGIC: Grossly nonfocal. LABORATORY DATA: CBC and basic metabolic profile were previously nearly unremarkable. His creatinin e was 1.39. Blood sugars have been running between 220 and 350. ASSESSMENT: 1. Acute hypoxic respiratory failure, resolved. 2. Acute on chronic diastolic heart failure, improving. 3. Pulmonary hypertension, secondary to diastolic dysfunction and likely untreated sleep apnea. DISCUSSION AND PLAN: From a respiratory perspective, the patient is stable for transition out of the hospital. He will need to follow up with Dr. Amaya in the outpatient setting to pursue a polysomnog radha and initiate noninvasive therapy in the outpatient setting. Pulmonary Critical Care will continu e to follow along while he remains in-house. Hopefully, he will be going home shortly.
[2017-09-17] MEDS: Insulin Glargine 40 UNITS in Pre-Filled Syringe SC SCH (21:30)
[2017-09-18 04:53] LABS: Anion Gap 12 mmol/L (10-20); BUN (Urea Nitrogen) 22 mg/dL (8.4-25.7); Calc. Creatinine Clearance 77 mL/min (70-130); Calcium 10.1 mg/dL (7.8-10.44); Carbon Dioxide 31 mmol/L (23-31); Chloride 96 mmol/L (98-107); Estimated GFR-MDRD 57; Glucose 233 mg/dL (83-110); Potassium 3.6 mmol/L (3.5-5.1); Sodium 135 mmol/L (136-145)
[2017-09-18] MEDS: Levothyroxine Sodium 112 MCG TAB PO SCH (04:53)
[2017-09-18] MEDS: Mometasone/Formoterol 120 PUFF INHALER INH SCH ×2 (06:24→19:17)
[2017-09-18] MEDS ORDERED: Furosemide 40 MG/4 ML VIAL SLOW IVP SCH (09:00)
[2017-09-18] MEDS: HumaLOG 300 UNITS/3 ML VIAL SC PRN ×2 (09:57→21:36)
[2017-09-18] MEDS: Spironolactone 25 MG TAB PO SCH ×2 (09:57→16:16)
[2017-09-18] MEDS: Potassium Chloride 20 MEQ TAB PO SCH ×2 (09:58→16:16)
[2017-09-18] MEDS: HumaLOG 300 UNITS/3 ML VIAL SC SCH ×2 (12:11→17:07)
--- NOTE | 2017-09-18 13:09 | PDOC.PN ---
- Subjective Encounter Start Date: 09/18/17 Encounter Start Time: 10:20 Pt seen, feeling better, -1L + in last 24 hours. pt told he would be here through weekend. No F/C, no N/V/d/c, no CP, no SOB. Poonam po all systems reviewed and neg x as above - Objective MAR Reviewed: Yes Vital Signs & Weight: Vital Signs (12 hours) Temp Pulse Resp BP BP Pulse Ox 09/18/17 12:57 97.8 F 66 18 136/63 94 L 09/18/17 08:40 97.8 F 62 18 94 L 09/18/17 07:44 97.8 F 62 18 119/59 L 94 L 09/18/17 06:24 74 12 09/18/17 04:00 98.1 F 74 18 104/62 95 Weight Admit Weight 271 lb 4.8 oz Weight 249 lb I&O: 09/17/17 09/18/17 09/19/17 06:59 06:59 06:59 Intake Total 940 1480 Output Total 1999 157 Balance -1060 -95 Result Diagrams: 09/13/17 14:00 09/18/17 04:04 Additional Labs: Accuchecks 09/18/17 09/18/17 09/17/17 11:47 06:20 20:21 POC Glucose 260 H 217 H 353 H 09/17/17 16:41 POC Glucose 259 H Phys Exam - Physical Examination Constitutional: NAD HEENT: PERRLA, moist MMs, sclera anicteric, oral pharynx no lesions Neck: no nodes, no JVD, supple, full ROM Respiratory: no wheezing, no rales, no rhonchi, clear to auscultation bilateral Cardiovascular: RRR, no rub murmur 3/6, RUSB -> apex Gastrointestinal: soft, non-tender, no distention, positive bowel sounds Musculoskeletal: pulses present, edema present Neurological: non-focal, normal sensation, moves all 4 limbs Lymphatic: no nodes Psychiatric: normal affect, A&O x 3 Dx/Plan (1) DM2 (diabetes mellitus, type 2) Status: Chronic Qualifiers: Diabetes mellitus care home insulin use: with terminal superintendent use Diabetes mellitus complication status: with circulatory complication Diabetes mellitus complication detail: with other circulatory complications Qualified Code(s): E11.59 - Type 2 diabetes mellitus with other circulatory complications; Z79.4 - terminal press operator (current) use of insulin; Z79.4 - [facility] (current) use of insulin; Z79.4 - terminal press operator (current) use of insulin; Z79.4 - [facility] (current) use of insulin Comment: increased lantus to 50, scheduled short acting 10 units iwth meals (2) Chronic a-fib Code(s): I48.2 - CHRONIC ATRIAL FIBRILLATION Status: Chronic (3) Acute on chronic diastolic (congestive) heart failure Code(s): I50.33 - ACUTE ON CHRONIC DIASTOLIC (CONGESTIVE) HEART FAILURE Status : Acute (4) HTN (hypertension) Code(s): I10 - ESSENTIAL (PRIMARY) HYPERTENSION Status: Chronic Qualifiers: Hypertension type: essential hypertension Qualified Code(s): I10 - Essential (primary) hypertension - Plan cont current plan of care, plan discussed w/ family, PT/OT, respiratory therapy , out of bed/ambulate * . monitor sugars, home per cardiology
[2017-09-18] MEDS: Rivaroxaban 15 MG TAB PO SCH (17:07)
[2017-09-18] MEDS ORDERED: Insulin Glargine 50 UNITS in Pre-Filled Syringe 1 EACH SC SCH (21:00)
--- NOTE | 2017-09-18 23:16 | PRG ---
DATE OF SERVICE: 09/18/2017 SERVICE: Pulmonary Medicine. INTERVAL HISTORY: The patient is doing fine from a cardiovascular and respiratory standpoint. He is breathing comfortably. He denies any current chest pain, nausea, vomiting, fevers, or chills. His breathing is essentially back to baseline. PHYSICAL EXAMINATION: VITAL SIGNS: Afebrile, pulse 64, blood pressure 132/61, respirations 18, saturation 96% on room air. GENERAL: The patient is awake, alert, in no apparent distress. LUNGS: Excellent air entry. There is no prolonged expiratory phase or wheezing. Dependent crackles are minimal. HEART: Normal rate and regular. ABDOMEN: Soft, nontender, nondistended. Bowel sounds are positive. MUSCULOSKELETAL: No cyanosis or clubbing. There is no pitting in the bilateral lower extremities. NEUROLOGIC: Grossly nonfocal. LABORATORY DATA: Basic metabolic profile is completely unremarkable. Creatinine is down trending to 1.22. ASSESSMENT: 1. Acute hypoxic respiratory failure, resolved. 2. Acute on chronic diastolic heart failure, improving. 3. Pulmonary hypertension, secondary to diastolic dysfunction, and likely untreated sleep apnea. DISCUSSION AND PLAN: From purely respiratory perspective, the patient is stable for transition out o f the hospital. Pulmonary will continue to follow along so long as he remains in house. [facility], he is going to follow up with Dr. Amaya after a polysomnogram.
[2017-09-19 05:55] LABS: Anion Gap 13 mmol/L (10-20); BUN (Urea Nitrogen) 21 mg/dL (8.4-25.7); Calc. Creatinine Clearance 85 mL/min (70-130); Calcium 9.8 mg/dL (7.8-10.44); Carbon Dioxide 29 mmol/L (23-31); Chloride 99 mmol/L (98-107); Estimated GFR-MDRD 64; Glucose 225 mg/dL (83-110); Potassium 3.6 mmol/L (3.5-5.1); Sodium 137 mmol/L (136-145)
[2017-09-19] MEDS: Mometasone/Formoterol 120 PUFF INHALER INH SCH ×2 (06:07→18:45)
[2017-09-19] MEDS: Furosemide 40 MG/4 ML VIAL SLOW IVP SCH ×2 (06:31→14:59)
[2017-09-19] MEDS: Levothyroxine Sodium 112 MCG TAB PO SCH (06:31)
--- NOTE | 2017-09-19 08:29 | PDOC.CTH ---
Cardiology Progress Note - Subjective Resting, awakens easily. Denies chest pain, SOB, N/V. Per patient has ambulated some in the room, just feels "worn out". Stressed importance of ambulation, elevating legs, out of bed for all meals. No overnight events. - Objective Vital Signs Temp Pulse Resp BP Pulse Ox 09/19/17 06:07 71 12 09/19/17 03:15 98.5 F 71 20 119/59 L 93 L Admit Weight 271 lb 4.8 oz Weight 252 lb 09/18/17 09/19/17 09/20/17 06:59 06:59 06:59 Intake Total 1480 720 Output Total 1575 1300 Balance -95 -580 - Physical Examination General/Neuro: alert & oriented x3, NAD Neck: no JVD present Lungs: CTA, unlabored respirations Heart: other: (Irregularly irregular) Abdomen: other: (obese abdomen, mild distention) Extremities: other: (1-2+ pitting edema, improved) - Telemetry Telemetry Rhythm: AFib, rate-controlled - Labs Result Diagrams: 09/13/17 14:00 09/19/17 03:56 - Assessment/Plan 1.Diastolic HF-cont diuresis, mod BLE edema-improved 2.Chronic AFib-rate controlled, cont Xarelto 3.HTN-controlled on current regimen 4.CKD Stage III-creatinine stable, 1.11 5.-mild to mod 6.NSVT-14 beats, no recurrence PT to eval/treat, deconditioned. Maybe home tomorrow. AM weight not accurate, reweighed on standing scale, 252 this am.
[2017-09-19] MEDS: Spironolactone 25 MG TAB PO SCH ×2 (08:39→17:27)
[2017-09-19] MEDS: Metolazone 5 MG TAB PO SCH (08:39)
[2017-09-19] MEDS: Acetaminophen 325 MG TAB PO PRN ×2 (08:39→21:48)
[2017-09-19] MEDS: Potassium Chloride 20 MEQ TAB PO SCH ×2 (08:39→17:27)
[2017-09-19] MEDS: HumaLOG 300 UNITS/3 ML VIAL SC SCH ×3 (08:39→17:27)
--- NOTE | 2017-09-19 09:42 | PDOC.PN ---
- Subjective Encounter Start Date: 09/19/17 Encounter Start Time: 13:50 Subjective: Patient up walking with family this AM. Seen in the afternoon. Feeling -: much better. Swelling in legs improved. No complaints currently. - Objective MAR Reviewed: Yes Vital Signs & Weight: Vital Signs (12 hours) Temp Pulse Resp BP BP Pulse Ox 09/19/17 08:35 97.4 F L 78 20 145/77 H 92 L 09/19/17 06:07 71 12 09/19/17 03:15 98.5 F 71 20 119/59 L 93 L Weight Admit Weight 271 lb 4.8 oz Weight 252 lb I&O: 09/18/17 09/19/17 09/20/17 06:59 06:59 06:59 Intake Total 1480 720 Output Total 1575 1300 Balance -95 -580 Result Diagrams: 09/13/17 14:00 09/19/17 03:56 Additional Labs: Accuchecks 09/19/17 09/18/17 09/18/17 06:32 20:47 16:35 POC Glucose 263 H 335 H 277 H 09/18/17 11:47 POC Glucose 260 H Phys Exam - Physical Examination Constitutional: NAD HEENT: moist MMs Respiratory: no wheezing, no rales, no rhonchi Cardiovascular: RRR, no significant murmur Gastrointestinal: soft, positive bowel sounds 2+ BLE edema to knees Neurological: non-focal, moves all 4 limbs Psychiatric: normal affect, A&O x 3 Dx/Plan (1) Acute on chronic diastolic (congestive) heart failure Code(s): I50.33 - ACUTE ON CHRONIC DIASTOLIC (CONGESTIVE) HEART FAILURE Status : Acute (2) Chronic a-fib Code(s): I48.2 - CHRONIC ATRIAL FIBRILLATION Status: Chronic Comment: rate controlled, on Xarelto (3) Nonsustained ventricular tachycardia Code(s): I47.2 - VENTRICULAR TACHYCARDIA Status: Resolved Comment: 14 beat, no recurrence (4) DM2 (diabetes mellitus, type 2) Status: Chronic Qualifiers: Diabetes mellitus [facility] insulin use: with terminal operations supervisor use Diabetes mellitus complication status: with circulatory complication Diabetes mellitus complication detail: with other circulatory complications Qualified Code(s): E11.59 - Type 2 diabetes mellitus with other circulatory complications; Z79.4 - intermediate (current) use of insulin; Z79.4 - intermediate (current) use of insulin; Z79.4 - assistant terminal manager (current) use of insulin; Z79.4 - assistant terminal manager (current) use of insulin Plan: Blood sugars still elevated in 200-300s Comment: increased lantus to 55, increased short acting insulin to 12 units with meals - Plan cont current plan of care, PT/OT D/c when ok with cardiology -: Needs outpatient sleep study and pulm followup * . - Discharge Day Encounter end time: 14:00
--- NOTE | 2017-09-19 12:04 | PRG ---
DATE OF SERVICE: 09/19/2017 PHYSICAL EXAMINATION: VITAL SIGNS: Mr. Bell is afebrile, heart rate 78, respiratory 20, oximetry is 92 on room air, blo od pressure 145/77. Intake and output is negative 580, not really sure how his weight went from 249 to 274, this cannot b e weight on a standing scale. There is no change otherwise. He decided he cannot wear CPAP. IMPRESSION: 1. Diastolic dysfunction. 2. Anasarca. 3. Probable untreated sleep apnea. PLAN: Continue diuresis as tolerated. His creatinine is 1.11. We do need to get accurate weights.
--- NOTE | 2017-09-19 17:00 | PRG ---
DATE OF SERVICE: 09/19/2017 SUBJECTIVE: Mr. Bell is doing well today, still diuresing. The weights are not reliable. OBJECTIVE: VITAL SIGNS: Blood pressure 146/67; pulse 66, it is irregular. LUNGS: Clear. CARDIAC: Irregularly irregular. ABDOMEN: Soft, nontender, but he is clearly having ascites. EXTREMITIES: There is only minimal edema. ASSESSMENT: 1. Congestive heart failure, diastolic, improved. 2. Renal failure, improved. PLAN: To be released home tomorrow. We will adjust medicines at that time. Give an extra dose of p otassium tonight.
[2017-09-19] MEDS: Rivaroxaban 15 MG TAB PO SCH (17:27)
[2017-09-19] MEDS ORDERED: Potassium Chloride 20 MEQ TAB PO SCH (18:00)
[2017-09-19] MEDS ORDERED: Insulin Glargine 55 UNITS in Pre-Filled Syringe 1 EACH SC SCH (21:00)
[2017-09-20 05:51] LABS: Anion Gap 13 mmol/L (10-20); BUN (Urea Nitrogen) 25 mg/dL (8.4-25.7); Calc. Creatinine Clearance 80 mL/min (70-130); Calcium 9.8 mg/dL (7.8-10.44); Carbon Dioxide 29 mmol/L (23-31); Chloride 102 mmol/L (98-107); Estimated GFR-MDRD 59; Glucose 157 mg/dL (83-110); Magnesium 2.1 mg/dL (1.6-2.6); Potassium 3.7 mmol/L (3.5-5.1); Sodium 140 mmol/L (136-145)
[2017-09-20] MEDS: Furosemide 40 MG/4 ML VIAL SLOW IVP SCH (06:31)
[2017-09-20] MEDS: Levothyroxine Sodium 112 MCG TAB PO SCH (06:31)
[2017-09-20] MEDS: Mometasone/Formoterol 120 PUFF INHALER INH SCH (07:18)
[2017-09-20] MEDS ORDERED: Potassium Chloride 20 MEQ TAB PO SCH (08:45)
[2017-09-20] MEDS: Metolazone 5 MG TAB PO SCH (09:01)
[2017-09-20] MEDS: HumaLOG 300 UNITS/3 ML VIAL SC SCH ×2 (09:03→11:17)
[2017-09-20] MEDS: Spironolactone 25 MG TAB PO SCH (09:03)
[2017-09-20] MEDS: Potassium Chloride 20 MEQ TAB PO SCH (09:03)
--- NOTE | 2017-09-20 09:11 | PDOC.PN ---
- Subjective Encounter Start Date: 09/20/17 Encounter Start Time: 10:30 Subjective: Patient feeling much better. Ambulating well with walker. Swelling -: much better. Breathing easily. Ready to go home. - Objective MAR Reviewed: Yes Vital Signs & Weight: Vital Signs (12 hours) Temp Pulse Resp BP BP Pulse Ox 09/20/17 07:39 97.4 F L 74 18 130/63 94 L 09/20/17 07:18 65 16 93 L 09/20/17 04:00 98.7 F 63 18 102/55 L 92 L Weight Admit Weight 271 lb 4.8 oz Weight 248 lb I&O: 09/19/17 09/20/17 09/21/17 06:59 06:59 06:59 Intake Total 720 1200 Output Total 1300 2300 Balance -580 -1100 Result Diagrams: 09/13/17 14:00 09/20/17 04:00 Additional Labs: Accuchecks 09/20/17 09/19/17 09/19/17 05:33 20:17 16:20 POC Glucose 147 H 182 H 184 H 09/19/17 10:42 POC Glucose 175 H Phys Exam - Physical Examination Constitutional: NAD HEENT: moist MMs Respiratory: no wheezing, no rales, no rhonchi Cardiovascular: RRR, no significant murmur Gastrointestinal: soft, non-tender, positive bowel sounds Musculoskeletal: edema present trace edema bilateral lower extremities Neurological: non-focal, moves all 4 limbs Psychiatric: normal affect, A&O x 3 Dx/Plan (1) Acute on chronic diastolic (congestive) heart failure Code(s): I50.33 - ACUTE ON CHRONIC DIASTOLIC (CONGESTIVE) HEART FAILURE Status : Acute Comment: improving (2) Chronic a-fib Code(s): I48.2 - CHRONIC ATRIAL FIBRILLATION Status: Chronic Comment: rate controlled, on Xarelto (3) Nonsustained ventricular tachycardia Code(s): I47.2 - VENTRICULAR TACHYCARDIA Status: Resolved Comment: 14 beat, no recurrence (4) DM2 (diabetes mellitus, type 2) Status: Chronic Qualifiers: Diabetes mellitus termite exterminator helper insulin use: with jail use Diabetes mellitus complication status: with circulatory complication Diabetes mellitus complication detail: with other circulatory complications Qualified Code(s): E11.59 - Type 2 diabetes mellitus with other circulatory complications; Z79.4 - termite renewal inspector (current) use of insulin; Z79.4 - termite renewal inspector (current) use of insulin; Z79.4 - senior living (current) use of insulin; Z79.4 - termite renewal inspector (current) use of insulin Comment: increased lantus to 55, increased short acting insulin to 12 units with meals - Plan cont current plan of alf today, Cardiology to adjust medications prior to discharge * . - Discharge Day Encounter end time: 10:40
--- NOTE | 2017-09-20 13:26 | PRG ---
DATE OF SERVICE: 09/20/2017 He continues to diurese. PHYSICAL EXAMINATION: VITAL SIGNS: Blood pressure 130/63. He is afebrile, heart rate is 94. Weight is 248 pounds. Intake and output is negative 1100. IMPRESSION: Anasarca secondary to diastolic dysfunction and probably untreated sleep apnea. His renal functions tolerated diuresis. Hopefully, we can keep volume off. Continue to fluid restr ict. He is probably stable to be discharged soon.
--- NOTE | 2017-09-20 13:26 | PRG ---
DATE OF SERVICE: 09/14/2017 HISTORY: Mr. Bell is doing better today. He continues to diurese. PHYSICAL EXAMINATION: VITAL SIGNS: Blood pressure early this morning was 102/55, now it is 130/63, pulse is 70, it is irre gular. His weight is down to 246. This has been as high as 278. LUNGS: Clear. CARDIAC: Irregular. ABDOMEN: Still has some ascites, but better. EXTREMITIES: Only mild edema. LABORATORY DATA: Most recent potassium is 3.7. He received additional potassium this morning. ASSESSMENT: 1. Congestive heart failure, diastolic, improved slowly. 2. Renal failure, improved, creatinine now is 1.19. 3. Diabetes. PLAN: 1. Go home on torsemide 20 mg 2 in the morning, 1 in the afternoon. 2. Spironolactone 25 mg twice a day as before. 3. Potassium 20 mEq a day. Base met in 2 weeks. 4. Follow up with us in the office in a couple of weeks.
[2017-09-20 14:02] VITALS: BP 128/60; TEMP 97.1
--- NOTE | 2017-09-20 14:34 | DIS ---
PRIMARY SATURATOR OPERATOR: Dr. Herndon. PRIMARY CARE PHYSICIAN: Dr. Vladislav Martinez. REASON FOR ADMISSION: Diastolic congestive heart failure exacerbation. DIAGNOSES AT DISCHARGE: 1. Acute on chronic diastolic congestive heart failure, AHA classification 3. 2. Chronic atrial fibrillation, on Xarelto. 3. Nonsustained ventricular tachycardia. 4. Diabetes mellitus, type 2, insulin-dependent. PROCEDURES: Echocardiogram showing ejection fraction of 55%-60%; severely enlarged right ventricular cavity; left atrium severely dilated; mild-to- moderate aortic stenosis; [id number] tricuspid regurgitation; pulmonary artery systolic pressure estimated at 60 mmHg, markedly elevated; atrial fibrillation; and severe diastolic dysfunction. CONSULTATIONS: 1. Cardiology, Dr. Herndon, initial admitting physician. 2. Pulmonology, Dr. Amaya. 3. Hospitalist Ned. PERTINENT LABORATORY DATA: Potassium was initially 3.3 on admission and up to 3.7 at discharge. Blood sugars initially elevated in the 200-300s, down to the 140-180 at discharge. SUMMARY OF HOSPITAL COURSE: This is an 82-year-old white male with a history of chronic diastolic congestive heart failure; aortic stenosis; probable obstructive sleep apnea; diabetes mellitus, type 2, on insulin; obesity; and hypertension. He was initially admitted for acute exacerbation of diastolic congestive heart failure by Dr. Herndon for diuresis; however, he did not turn around as quickly as expected and he had significantly elevated blood sugars during hospitalization. So, we were consulted to assist. The patient normally was on Tresiba, which we were not able to give here, although he was able to be started on Lantus along with a short-acting insulin with meals. His Lantus was titrated up to 55 units each night and the Humalog 12 units before each meal with improved control of his blood sugars. He had IV furosemide given with good diuresis over his hospitalization and resolution of his shortness of breath and peripheral edema. He has been doing much better and ambulating with his walker. By the day of discharge, he was ready to go home and saturating well on room air. On day of discharge, Dr. Herndon did clear patient to go home. DISCHARGE MANAGEMENT: Discharge home. Follow up with Dr. Herndon on 09/27/2017 at 8:00 a.m. with cardiac rehab on 10/04/2017 at 10:[address] Martinez as needed. ACTIVITIES: As tolerated. DIET: Diabetic, fluid restricted, low sodium diet. DISCHARGE MEDICATIONS: 1. Torsemide 40 mg each morning and 20 mg at night, 90 tablets dispensed. 2. Spironolactone 25 mg twice a day, 60 tablets dispensed. 3. Potassium chloride 20 mEq daily, 30 tablets dispensed. Continue home medications. 4. Tramadol as needed. 5. Xarelto 15 mg each night. 6. Levothyroxine 112 mcg daily. 7. Lantus 55 units at night. 8. Humalog 12 units subcu a.c., before each meal, 1 vial dispensed. 9. Fenofibrate 160 mg daily. 10. Anastrozole 1 mg daily. I spent 32 minutes arranging the details of this discharge. [facility]
[2017-09-21] MEDS ORDERED: Potassium Chloride 20 MEQ TAB PO SCH (08:00)
== END 2017-09-20 14:38 | disposition home or self-care (01) | DRG 291 ==
LOC: RAD 09:06 → 2SW 11:14 → OBSVTOIN 09-14 11:28 → 2NO 09-14 15:25
PROVIDERS: ADMIT Internal Medicine Cardiovascular Disease; ATTEND Internal Medicine Cardiovascular Disease
DX: I13.0 Hypertensive heart and chronic kidney disease with heart failure and stage 1 through stage 4 chronic kidney disease, or unspecified chronic kidney disease (principal); I50.33 Acute on chronic diastolic (congestive) heart failure; J96.01 Acute respiratory failure with hypoxia; I47.2 Ventricular tachycardia; I27.20 Pulmonary hypertension, unspecified; Z79.01 Long term (current) use of anticoagulants; Z79.899 Other long term (current) drug therapy; E11.22 Type 2 diabetes mellitus with diabetic chronic kidney disease; Z79.4 Long term (current) use of insulin; G47.33 Obstructive sleep apnea (adult) (pediatric); I34.0 Nonrheumatic mitral (valve) insufficiency; I48.0 Paroxysmal atrial fibrillation; Z88.0 Allergy status to penicillin; E66.9 Obesity, unspecified; Z96.659 Presence of unspecified artificial knee joint; E89.0 Postprocedural hypothyroidism; Z87.891 Personal history of nicotine dependence; N18.3 Chronic kidney disease, stage 3 (moderate)
CPT/HCPCS: 36415; 36416; 71046; 80048; 80053; 83735; 84443; 85025; 93306; 93798; 94660; A4216; G8978-GP-CJ; G8979-GP-CJ; G8980-GP-CJ; J1940

== ENCOUNTER 2018-01-24 08:17 | Outpatient (CLI) | payer MEDICARE, BC ==
--- NOTE | 2018-01-24 12:42 | RAD ---
PA AND LATERAL VIEWS CHEST: HISTORY: Dyspnea. FINDINGS: Comparison is made with the exam of 09/13/17. Persistent parenchymal changes are again seen, predominantly on the left. The heart size is enlarged . No new infiltrates or pneumothoraces are identified. IMPRESSION: Stable exam. POS: [facility]
== END 2018-01-24 08:18 | disposition home or self-care (01) ==
LOC: RAD 08:17
PROVIDERS: ATTEND Internal Medicine Critical Care Medicine
DX: R06.00 Dyspnea, unspecified (principal)
CPT/HCPCS: 71046

== ENCOUNTER 2018-03-27 01:23 | Inpatient (IN) | payer MEDICARE, BC ==
[2018-03-27] MEDS ORDERED: Nitroglycerin 2% Ointment 1 INCH/1 GM Packet ONE (01:54)
[2018-03-27] MEDS ORDERED: Furosemide 20 MG/2 ML VIAL ONE (01:54)
[2018-03-27] MEDS ORDERED: Furosemide 40 MG/4 ML VIAL ONE ×2 (01:54→14:05)
[2018-03-27 02:15] LABS: Band 3 % (5-11); Eosinophils 1 % (0-10); Hemoglobin 14.1 g/dL (14.0-18.0); Lymphocytes 5 % (21-51); MDiff Complete? YES; Mean Corpuscular HGB CONC 32.8 g/dL (32.0-36.0); Mean Corpuscular Hemoglobin 32.5 pg (27.0-31.0); Mean Corpuscular Volume 99.1 fL (78.0-98.0); Mean Platelet Volume 7.8 fL (7.4-10.4); Monocytes 4 % (0-10); Neutrophil 86 % (42-75); PLT Morphology Comment Appears Adequate; Platelet Count 171 thou/uL (130-400); RBC Distribution Width 15.2 % (11.5-14.5); Red Blood Cell (RBC) Count 4.33 mill/uL (4.70-6.10); White Blood Cell (WBC) Count 9.9 thou/uL (4.8-10.8)
[2018-03-27 02:21] LABS: ALT (SGPT) 30 U/L (8-55); AST (SGOT) 27 U/L (5-34); Albumin 3.6 g/dL (3.4-4.8); Alkaline Phosphatase 307 U/L (40-150); Anion Gap 16 mmol/L (10-20); BUN (Urea Nitrogen) 13 mg/dL (8.4-25.7); Bilirubin, Total 5.7 mg/dL (0.2-1.2); Calc. Creatinine Clearance 0 mL/min (70-130); Calcium 9.9 mg/dL (7.8-10.44); Carbon Dioxide 26 mmol/L (23-31); Chloride 95 mmol/L (98-107); Estimated GFR-MDRD 54; Globulin 4.4 g/dL (2.4-3.5); Glucose 373 mg/dL (83-110); Potassium 4.1 mmol/L (3.5-5.1); Sodium 133 mmol/L (136-145)
[2018-03-27 02:24] LABS: CKMB 1.4 ng/mL (0-6.6)
[2018-03-27] MEDS ORDERED: cefTRIAXone\\ROCEPHIN 2 GM VIAL ONE (02:52)
[2018-03-27] MEDS ORDERED: Sodium Chloride 0.9% 100 ML ONE (02:52)
[2018-03-27 04:35] LABS: Bacteria/HPF None Seen HPF (None Seen); Bilirubin Small (Negative); Blood, Urine Moderate (Negative); Clarity CLEAR (Clear); Glucose, Urine (Dipstick) >=1000 mg/dL (Negative); Hyaline Casts/LPF 0-3 HYALINE CAST LPF (0-3 Hyaline); Leukocyte Small (Negative); Nitrite Negative (Negative); Pathc Cast-AUWi Flag 0.43 (0-2.49); Protein, Urine (Dipstick) 100 mg/dL (Neg-Trace); Specific Gravity, Urine 1.027 (1.002-1.036); Squamous Epithelial None Seen HPF (0-3); WBC/HPF 21-50 HPF (0-3)
[2018-03-27 05:37] LABS: Troponin I 0.036 ng/mL (< 0.028)
[2018-03-27 05:59] LABS: Lactic Acid 2.4 mmol/L (0.5-2.2)
--- NOTE | 2018-03-27 08:25 | CT ---
PRELIMINARY REPORT/[facility]/EMERGENTY AFTER-HOURS PROCEDURE CT Head Without Intravenous Contrast EXAM DATE/TIME: 03/27/2018 2:17 AM CLINICAL HISTORY: 82 years old, male; Injury or trauma; Fall; Initial encounter; Abrasion; Not specified; Patient HX: E r 2; 82 yo m PT reports that he fell earlier this morning due sudden bilateral leg weakness, PT fell in the bathroom and hit is chin and buttock on the countertop. PT denies loc, denies lightheadedness. TECHNIQUE: Axial computed tomography images of the head/brain without intravenous contrast. COMPARISON: No relevant prior studies available. FINDINGS: Brain: Scattered areas of hypoattenuation, likely chronic small vessel ischemic change, demyelination , or gliosis. Minimal encephalomalacia within the left occipital lobe. Ventricles: Normal. Bones/joints: Normal. Sinuses: Ethmoid and right sphenoid sinus disease. Mastoid air cells: Normal as visualized. Soft tissues: Normal. Vasculature: Atherosclerotic vascular calcifications. IMPRESSION: No acute intracranial abnormality. Thank you for allowing us to participate in the care of your patient. Dictated and Authenticated by: Milton Kelley MD 03/27/2018 2:29 AM Central Time ([place] & [place]) FINAL REPORT EMERGENCY AFTER HOURS NONCONTRAST CT HEAD: Date: 03/27/18 HISTORY: Patient fell, on blood thinning medication. Sudden bilateral leg weakness. IMPRESSION: 1. No acute intracranial abnormality is demonstrated. 2. Chronic small vessel ischemic changes, greatest in left parietooccipital region. 3. Mild cerebral volume loss. 4. Sinus disease involving right sphenoid sinus. Findings are in agreement with the preliminary report by Alessio. POS: [facility]
[2018-03-27] MEDS ORDERED: Azithromycin 250 MG TAB ONE (08:26)
--- NOTE | 2018-03-27 08:42 | RAD ---
PORTABLE UPRIGHT FRONTLA CHEST RADIOGRAPH: Date: 03/27/18 COMPARISON: 04/27/17. HISTORY: Dyspnea, shortness of breath, and fall. FINDINGS: There is hazy focal new air space opacity in the right lung base, partially obscuring the right heart border, suggesting consolidative change within right middle lobe. Bilateral pleural effusions are no lonnie. No pneumothorax. Pulmonary vascular congestion noted. IMPRESSION: Pulmonary vascular congestion with bilateral pleural effusions and focal air space disease in the rig ht lung base. Findings could be related to infectious pneumonitis/aspiration and/or pulmonary edema. Follow-up to resolution advised. POS: [facility]
--- NOTE | 2018-03-27 08:43 | RAD ---
AP PELVIS: Date: 03/27/18 HISTORY: Fall. FINDINGS: There is no widening of the sacroiliac joints of the pubic symphysis. Pelvic ring appears intact. Fem oral heads project normally over their respective acetabulum. No displaced fracture is noted. IMPRESSION: No acute osseous abnormality. POS: [facility]
--- NOTE | 2018-03-27 08:56 | CT ---
PRELIMINARY REPORT/[facility]/EMERGENTY AFTER-HOURS PROCEDURE CT Angiography Chest With Intravenous Contrast EXAM DATE/TIME: 03/27/2018 3:06 AM CLINICAL HISTORY: 82 years old, male; Signs and symptoms; Shortness of breath; Patient HX: 82 yo m presents to ed via e ms with SOB. PT reports SOB that started earlier tonight. PT denies chest pain, denies fever, denies chills. PT also reports that he fell earlier this morning due sudden bilateral leg weakness, PT fell in the bathroom and hit is chin and buttock on the countertop. PT denies loc, denies lightheaded ness, denies head trauma. TECHNIQUE: Axial computed tomographic angiography images of the chest with intravenous contrast using CT angiogr aphy protocol. MIP reconstructed images were created and reviewed. COMPARISON: No relevant prior studies available. FINDINGS: Pulmonary arteries: No pulmonary embolism. Aorta: Normal. No aortic aneurysm. No aortic dissection. Lungs: Focal consolidation within the inferior aspect of the anterior right upper lobe, compatible wi th pneumonia. Atelectasis and/or scarring within the lingula. Bilateral peribronchial cuffing and int er and intralobular septal thickening, likely cardiogenic pulmonary edema. Pleural space: Moderate-sized left and small-sized right pleural effusions, with associated posterior atelectasis. Heart: Moderate four-chamber cardiac enlargement. Liver: Nodular hepatic partial contour, compatible with cirrhosis. Moderate amount of free fluid in t he upper abdomen, secondary to cirrhosis. Spleen: Mild splenomegaly. Kidneys and ureters: 2.5 cm simple left renal cyst. Lymph nodes: Multiple mildly enlarged lymph nodes throughout the mediastinum, likely reactive, but no nspecific. Bones/joints: Unremarkable. No acute fracture. Soft tissues: Unremarkable. IMPRESSION: 1. No pulmonary embolism. 2. Focal consolidation within the inferior aspect of the anterior right upper lobe, compatible with p neumonia. Recommend followup. 3. Moderate-sized left and small-sized right pleural effusions, with associated posterior atelectasis . 4. Cardiogenic pulmonary edema, with moderate-sized left and small-sized right pleural effusions. Thank you for allowing us to participate in the care of your patient. Dictated and Authenticated by: Milton Kelley MD 03/27/2018 3:20 AM Central Time ([place] & [place]) FINAL REPORT EMERGENCY AFTER HOURS STUDY CTA THORAX WITH CONTRAST: (Computed Tomographic Angiography, chest(noncoronary) with contrast material, and image postprocessin g) (PE protocol) DATE: 03-27-18 TIME: 3:08 A.M. HISTORY: 82-year-old male with dyspnea. TECHNIQUE: IV injection of iodinated contrast. Scan acquisition timing attempted to coincide with iodinated contrast bolus reaching maximal density in pulmonary arteries. 3D MIP reconstructions. FINDINGS: agree with the preliminary report by [facility]. IMPRESSION: 1. No evidence of pulmonary thromboembolism. 2. Evidence for congestive heart failure: Cardiomegaly, bilateral moderate sized pleural effusions an d pulmonary interstitial edema. 3. Moderate sized consolidation in right middle lobe could represent atelectasis or pneumonia. Much s maller such density in the lingula. 4. Atherosclerosis and tortuosity of the thoracic aorta without aneurysm or dissection. 5. Moderate mediastinal lymphadenopathy. 6. Heavy three vessel coronary artery atherosclerotic calcification is evidence of coronary atheroscl erotic disease. 7. Cirrhosis. 8. Ascites. 9. Tracheomalacia. Code QA jn POS: [facility]
[2018-03-27] MEDS ORDERED: Sodium Chloride 0.65% Nasal 44 ML BOT EA NARE PRN (09:00)
[2018-03-27] MEDS ORDERED: Cepastat Lozenges 1 LOZ PO PRN (09:00)
[2018-03-27] MEDS ORDERED: Bisacodyl 5 MG TAB PO PRN (09:00)
[2018-03-27] MEDS ORDERED: Nitroglycerin 0.4 MG TAB (25 Tab Bottle) SL PRN (09:00)
[2018-03-27] MEDS ORDERED: Dextrose 5% in Water 1,000 ML IV PRN (09:00)
[2018-03-27] MEDS ORDERED: Senokot S 8.6-50 MG TAB PO PRN (09:00)
[2018-03-27] MEDS ORDERED: Dextrose 50% Abboject 50 ML SYRINGE SLOW IVP PRN (09:00)
[2018-03-27] MEDS ORDERED: Acetaminophen 500 MG TAB PO PRN (09:00)
[2018-03-27] MEDS ORDERED: Enoxaparin Sodium 40 MG/0.4 ML SYRINGE SC SCH (09:00)
[2018-03-27] MEDS ORDERED: cloNIDine 0.1 MG TAB PO PRN (09:00)
[2018-03-27] MEDS ORDERED: Ondansetron PF 4 MG/2 ML Vial IVP PRN ×2 (09:00)
[2018-03-27] MEDS ORDERED: Benzonatate 100 MG CAP PO PRN (09:00)
[2018-03-27] MEDS ORDERED: hydrALAZINE 20 MG/ML VIAL SLOW IVP PRN (09:00)
[2018-03-27] MEDS ORDERED: Metolazone 2.5 MG TAB PO SCH (09:00)
[2018-03-27 09:20] LABS: Troponin I 0.039 ng/mL (< 0.028)
[2018-03-27] MEDS: Insulin Glargine 15 UNITS in Pre-Filled Syringe 1 EACH SC SCH ×2 (10:47→21:25)
[2018-03-27] MEDS ORDERED: Enoxaparin Sodium 40 MG/0.4 ML SYRINGE ONE (11:41)
[2018-03-27] MEDS ORDERED: Famotidine 20 MG TAB ONE (11:42)
[2018-03-27] MEDS ORDERED: HumaLOG 300 UNITS/3 ML VIAL ONE (12:10)
[2018-03-27] MEDS: HumaLOG 300 UNITS/3 ML VIAL SC PRN ×2 (12:18→21:26)
[2018-03-27] MEDS: Famotidine 20 MG TAB PO SCH ×2 (12:19→20:09)
[2018-03-27] MEDS ORDERED: traMADol HCl 50 MG TAB PO PRN (12:29)
[2018-03-27] MEDS: MEROPENEM 1 GM/50 ML 1 GM in Premix Bag 1 BAG IVPB SCH ×2 (12:30→20:13)
[2018-03-27] MEDS ORDERED: Iopamidol 370 76% 100 ML VIAL ONE (12:41)
[2018-03-27] MEDS ORDERED: cloNIDine 0.1 MG TAB ONE (14:06)
[2018-03-27] MEDS: Furosemide 40 MG/4 ML VIAL SLOW IVP SCH ×2 (14:07→17:28)
[2018-03-27] MEDS ORDERED: Metolazone 5 MG TAB PO SCH (17:15)
--- NOTE | 2018-03-27 17:15 | HP ---
PRIMARY CARE PHYSICIAN: None. CHIEF COMPLAINT: Shortness of breath. HISTORY OF PRESENT ILLNESS: Mr. Bell is an 82-year-old male with known history of severe chronic diastolic congestive heart failure as well as possibly sleep apnea; insulin-dependent diabetes mellitus; chronic atrial fibrillation, on Xarelto; and history of nonsustained ventricular tachycardia; who presented to the emergency room with above-mentioned complaint. History is mainly obtained by the patient himself, who is a very poor historian. Even though his is at bedside, she is not much of a historian either. History is mainly obtained by the record reviewed from the emergency room physician, but please note that the patient has been in the ER since last night and I have not been able to talk to that ER physician directly. According to the reports, Mr. Bell came to the hospital for worsening shortness of breath of few days duration. When asked, they do say that his has been sick with fever and cough, but the patient himself denies any fever, chills, or cough. He denies worsening shortness of breath, generalized malaise, weakness, excessive fluid retention in the legs. Denies any chest pain. In the emergency room, upon presentation, he was 96% on 2 L of oxygen with reports of hypoxia earlier for EMS. He was found to be in mild respiratory distress with respirations at 26 per minute. He was otherwise afebrile and stable. His workup included a chest x-ray, which he was concerning for some pneumonia and fluid retention with pulmonary edema. He also underwent CT angio of the thorax, which is negative for pulmonary embolism; but confirmed the findings of the pulmonary edema with bilateral pleural effusions and focal consolidation in the anterior right lobe inferiorly. He was given azithromycin as well as Rocephin in the emergency room along with Lasix and transdermal nitroglycerin. He is feeling a little bit better for now and is being admitted for acute hypoxic respiratory failure due to pneumonia and acute on chronic diastolic congestive heart failure. His last hospitalization to our facility was in August 2017 for acute on chronic diastolic congestive heart failure. At this time, he was seen by Dr. Herndon and Dr. Amaya. He reports that he has been compliant with his medications and his outpatient appointment. PAST MEDICAL HISTORY: 1. Chronic diastolic congestive heart failure with severe tricuspid regurgitation and [id number] aortic stenosis. 2. Chronic atrial fibrillation, on Xarelto. 3. History of nonsustained ventricular tachycardia. 4. Insulin-dependent diabetes mellitus. 5. Possibly obstructive sleep apnea. 6. Pulmonary arterial hypertension. 7. Hypothyroidism. 8. History of pulmonary embolism. PAST SURGICAL HISTORY: 1. Right knee replacement. 2. Cholecystectomy. 3. Thyroidectomy. 4. Skin cancer removed in 2016. PSYCHIATRIC HISTORY: No anxiety. No depression. SOCIAL HISTORY: He denies any drug, tobacco, or alcohol abuse. Lives with his family. He quit smoking cigarettes in 1984. FAMILY HISTORY: No significant family history of premature coronary artery disease. Multiple family members have diabetes. ALLERGIES: ALLERGIES INCLUDE PENICILLIN. HOME MEDICATIONS: Home medications are listed as below, 1. Zaroxolyn 2.5 mg and 5 mg on alternate days. 2. Anastrozole 1 mg daily. I do not know why he is taking this medication and the patient was not able to tell either. 3. Xarelto 15 mg daily. 4. Levothyroxine 112 mcg daily. 5. Aldactone 25 mg p.o. b.i.d. 6. Tramadol p.r.n. 7. Torsemide 40 mg daily. CODE STATUS: Full code discussed with the patient. REVIEW OF SYSTEMS: A 12-point review of system is done. It is negative except for those mentioned in the history and physical. LABORATORY EXAMINATION: CBC shows WBCs at 9.9 with 86% neutrophils, hemoglobin is 14.1, and platelet count of 171. Serum chemistry showed sodium 133, chloride 95, blood sugar 373, lactic acid 2.8, total bilirubin 5.7, alkaline phosphatase 307. Troponin 0.020 with repeat troponin of 0.036 and 0.039. Urinalysis showed small leukocyte esterase, rbc's and wbc's. Chest x-ray, by my review, shows bilateral small pleural effusion and pulmonary edema as well as right lower lobe consolidation. X-ray of the pelvis, by my review, is negative for any fractures. CT scan of the brain, by my review, is negative for hemorrhage or acute infraction. CT angio negative for pulmonary embolism, but confirmed the finding of small bilateral pleural effusions more in the left side than the right side as well as pulmonary edema and right lobe pneumonia. PHYSICAL EXAMINATION: VITAL SIGNS: Upon presentation, blood pressure 151/77, pulse of 96, saturating 96% on 2 L oxygen, respirations 26, and temperature 98.2. GENERAL: The patient appears ill, weak and tired. He is lying on his side, scrunched up in bed, and does not involve in the interview much. He appears resigned to his illness. Family is at bedside. No acute distress noted. He is awake, alert, and oriented x3. HEENT: Mucosa is slightly dry. No oropharyngeal exudate or erythema. Head is normocephalic and atraumatic. Pupils are equal and reactive to light and accommodation. Extraocular movement intact. NECK: Supple without any lymphadenopathy, JVD, or bruits. CHEST: Shows decreased breath sounds at bases without any significant wheezes. HEART: Rate and rhythm are regular without any murmurs, rubs, or gallops. ABDOMEN: Obese, soft, nontender, and nondistended. EXTREMITIES: Show pitting edema extending up mid calf. +2 pedal pulses felt bilaterally. NEUROLOGIC: Nonfocal. SKIN: Free of any rashes or bruises. Feels warm and dry to touch. PSYCHIATRIC: Normal affect. IMPRESSION AND PLAN: 1. Acute hypoxic respiratory failure. This is likely due to a combination of acute diastolic congestive heart failure as well as right-sided pneumonia. He will be diuresed and continued on board-spectrum IV antibiotics. Urine cultures and blood cultures have been obtained and we will follow the final results. Because of the penicillin allergy, I am choosing him to be started on meropenem. He has, however, reportedly tolerated the Rocephin in the emergency room without episode of allergic reaction. With his severe diastolic dysfunction and repeated hospitalization, we will consult [facility] as well as his cleaning associate Dr. Herndon. Strict I's and O's and fluid restriction and heart-healthy diet will be instituted. We will also request consultation with his pediatric physiatrist, Dr. Amaya. 2. Acute on chronic congestive diastolic heart failure diurese and monitor strict I's and O's. We will restart his home medication of aldactone and Zaroxolyn. Continue with Lasix IV b.i.d. Hold torsemide for now as he is on Lasix. 3. Elevated cardiac enzymes, likely demand ischemia from acute hypoxic respiratory failure and acute congestive heart failure. The patient does have severe ventricular enlargement and mitral regurgitation and aortic stenosis. 4. Right-sided pneumonia. He will be treated with IV meropenem for now. Follow the results of the cultures as drawn in the emergency room. 5. Chronic atrial fibrillation. He is rate controlled. We will restart his Xarelto. He does not seem to be on any rate controlled medications for now. 6. Hypothyroidism. Restart his levothyroxine. 7. History of pulmonary embolism, currently on Xarelto and we will continue that for now. 8. Code status. Full code discussed with the patient in front of the RN. 9. Diabetes mellitus with hyperglycemia, which seems uncontrolled. We will start him on insulin sliding scale. Though he says that he takes insulin at home, he was not able to tell which one and what quantities. 10. Chronic anticoagulation. 11. Deep vein thrombosis and gastrointestinal prophylaxis with Pepcid and SCDs, and continue Xarelto. 12. P.r.n. medications ordered. 13. Disposition. Mr. Bell is currently being admitted to the hospital with pneumonia and acute diastolic congestive heart failure. Estimated length of stay at this time is at least 2 to 3 midnights. Further management will depend upon his clinical course. Job ID: [id number]
[2018-03-27] MEDS: Rivaroxaban 15 MG TAB PO SCH (17:28)
--- NOTE | 2018-03-27 19:56 | ULT ---
GALLBLADDER ULTRASOUND: INDICATIONS: Fever. Hyperbilirubinemia. FINDINGS: The gallbladder is surgically absent. There is a nodular contour of the liver with a component of pe rihepatic ascites. No focal hepatic lesion. There is decreased acoustic penetration of the right up per quadrant due to patient body habitus, as well as inability to tolerate breath-hold maneuvers. Incidental note of pleural fluid. The common duct, for a patient status post cholecystectomy, is normal at 5 mm in diameter. IMPRESSION: 1. Cirrhotic morphology of the liver. 2. There is evidence of perihepatic ascites and pleural fluid. Correlate for diffuse third-spacing of fluid. 3. Surgical absence of gallbladder. POS: [facility]
[2018-03-27] MEDS: Spironolactone 25 MG TAB PO SCH (20:09)
--- NOTE | 2018-03-27 20:38 | CON ---
DATE OF CONSULTATION: 03/27/2018 INDICATIONS FOR CONSULTATION: An 82-year-old patient with COPD and CHF exacerbation. HISTORY OF PRESENT ILLNESS: This is a very pleasant 82-year-old gentleman, who was at home, had a fall yesterday in his bathroom. His son was there and brought him to the emergency room. He denied any chest pain, but mainly he said he is just feeling so weak. He cannot even get up out of the chair hardly and he was up and he did not have actually had a fall. He said his legs just give way. He has also been complaining of some shortness of breath when he arrived here. It appears that he has pneumonia in the right upper lobe and also has some congestion most likely compatible with some congestive heart failure symptoms. He also has some lower extremity edema, which would also be compatible with some congestive heart failure symptoms. He had a CT scan which showed no acute changes and his vital signs did not show any indication, that he has had a myocardial infarction. His MBs are indeterminate, but most likely is due to demand ischemia. The first troponin was 0.02, the next was 0.036, and the next was 0.039. Blood sugar is elevated also at 373. His lactic acid also was elevated, it was 2.8, is now down to 2.4. His WBC was 9.9 and hemoglobin is 14.1. His EKG shows atrial fibrillation, which I believe is chronic. He also has decreased R-wave progression in the anterior leads. PAST MEDICAL HISTORY: Significant for atrial fibrillation and congestive heart failure. He has had a history of aortic stenosis in the past. He has a history of obstructive sleep apnea, type 2 diabetes, hypertension, hypothyroidism, obesity, mitral regurgitation, and he has a history of chronic diastolic dysfunction. PAST SURGICAL HISTORY: He has also had knee replacement, cholecystectomy, and thyroidectomy. He has had angioplasties in the past. ALLERGIES: ALLERGIC TO PENICILLIN. MEDICATIONS: His present medications include; 1. Zofran. 2. Tylenol. 3. Xarelto. 4. Arimidex. 5. Tessalon Perles. 6. Dulcolax. 7. Senokot. 8. Catapres as needed. 9. He is on Pepcid. 10. Insulin sliding scale. 11. He has been given Lasix 40 mg IV b.i.d. 12. Aldactone 25 mg b.i.d. 13. Antibiotics of meropenem. 14. Nitroglycerin as needed. 15. He has also been on Zaroxolyn 5 mg, this has been in the past. I am not sure he is still taking that. 16. He is also on levothyroxine. REVIEW OF SYSTEMS: He complains of shortness of breath and being generalized weakness. He denied any fevers. He had no new HEENT complaints. He has had no significant coughing. He has had no significant GI/ complaints, nausea, vomiting, or diarrhea. No dysuria, pyuria, or hematuria. Neurologically, he complains of weakness and possible presyncope, but no ponce syncopal episodes. FAMILY HISTORY: Noncontributory. SOCIAL HISTORY: He is . He has two children. No heart disease. No alcohol or tobacco use at this time. PHYSICAL EXAMINATION: GENERAL: Reveals an elderly gentleman. VITAL SIGNS: Heart rate is 105 and is irregular. Blood pressure today is 170/107. HEENT: Shows the head to be normocephalic and atraumatic. I could not hear any significant bruits. CHEST: Distant, but I do not hear any rales, rhonchi or wheezing. CARDIOVASCULAR: Reveals a regular rate and rhythm. He has a systolic murmur of the aortic area, otherwise I do not hear any significant heaves or thrills. ABDOMEN: Shows obesity with positive bowel sounds. No organomegaly or masses were noted. Femoral pulses are difficult to palpate due to a large pannus. EXTREMITIES: The lower extremities showed decreased pedal pulses on the right side. Left pedal pulses are treated to be normal. He has mild edema with some erythema. NEUROLOGIC: The patient does appear to be fatigued, but is alert and oriented. LABORATORY DATA: As noted above. DIAGNOSTIC DATA: EKG; as noted above. IMPRESSION: 1. Elderly gentleman with generalized weakness and possible pneumonia. He has been placed on antibiotics. We will continue to follow him. 2. History of diastolic dysfunction. He has been given IV diuretics and hopefully, this will improve. He says his symptoms already have improved since he has been here in the hospital. I did not have urine output on this gentleman yet. 3. History of chronic obstructive pulmonary disease. He will continue to be monitored and followed with his treatments. 4. History of atrial fibrillation. The rate is elevated, this is also associated mostly likely with his pneumonia. We will continue to monitor this. May need to add diltiazem or beta blockers if his blood pressure and heart rate tolerated. 5. Hypertension. We will need to lower the blood pressure by managing his medications. Further care of the patient will be with Dr. Herndon, who sees the patient tomorrow. Job ID: [id number]
[2018-03-28] MEDS: MEROPENEM 1 GM/50 ML 1 GM in Premix Bag 1 BAG IVPB SCH ×3 (04:31→21:17)
[2018-03-28] MEDS: Levothyroxine Sodium 112 MCG TAB PO SCH (05:02)
[2018-03-28] MEDS: Furosemide 40 MG/4 ML VIAL SLOW IVP SCH ×2 (05:02→13:47)
[2018-03-28 06:35] LABS: Anion Gap 12 mmol/L (10-20); BUN (Urea Nitrogen) 18 mg/dL (8.4-25.7); Calc. Creatinine Clearance 82 mL/min (70-130); Calcium 9.8 mg/dL (7.8-10.44); Carbon Dioxide 32 mmol/L (23-31); Chloride 91 mmol/L (98-107); Estimated GFR-MDRD 66; Glucose 262 mg/dL (83-110); Potassium 3.1 mmol/L (3.5-5.1); Sodium 132 mmol/L (136-145)
[2018-03-28 06:53] LABS: Band 9 % (5-11); Hemoglobin 13.3 g/dL (14.0-18.0); Hypochromia SLIGHT = 6-15 cells (100X) (0-5/hpf); Lymphocytes 6 % (21-51); MDiff Complete? YES; Mean Corpuscular HGB CONC 31.9 g/dL (32.0-36.0); Mean Corpuscular Hemoglobin 31.8 pg (27.0-31.0); Mean Corpuscular Volume 99.8 fL (78.0-98.0); Mean Platelet Volume 8.3 fL (7.4-10.4); Monocytes 3 % (0-10); Neutrophil 82 % (42-75); PLT Morphology Comment Appears Adequate; Platelet Count 155 thou/uL (130-400); Red Blood Cell (RBC) Count 4.17 mill/uL (4.70-6.10); White Blood Cell (WBC) Count 12.8 thou/uL (4.8-10.8)
[2018-03-28] MEDS ORDERED: Ondansetron PF 4 MG/2 ML Vial IVP PRN (07:14)
[2018-03-28] MEDS ORDERED: Loperamide HCl 2 MG CAP PO PRN (07:14)
[2018-03-28] MEDS ORDERED: Ondansetron ODT 4 MG TAB PO PRN (07:14)
[2018-03-28] MEDS ORDERED: Potassium Chloride 20 MEQ TAB PO SCH ×2 (07:30→13:00)
--- NOTE | 2018-03-28 10:00 | PRG ---
DATE OF SERVICE: 03/28/2018 SUBJECTIVE: Mr. Bell seems to be breathing somewhat better today, but still not normal. OBJECTIVE: VITAL SIGNS: Most recent blood pressure is recorded 165/70 and pulse is in the 80s with atrial fibrillation, which is chronic. LUNGS: Clear. CARDIAC: Irregularly irregular. ABDOMEN: Obese and also with ascites. EXTREMITIES: There is decreased edema. RESPIRATORY: Rate is still high. The patient still does not look comfortable. The I and O have not yet been recorded. The nurse tells me he had 1500 mL out last night. LABORATORY DATA: CO2 is 32, sodium 132, and potassium 3.1. ASSESSMENT: 1. Diastolic heart failure. 2. Chronic atrial fibrillation. 3. Pulmonary hypertension secondary to diastolic heart failure. 4. Surprisingly, the BNP was only 80. PLAN: 1. Continue diuresis. 2. Watch for metabolic alkalosis. If so, he may need Diamox 1 dose tomorrow. 3. Replete potassium, it is 3.1. Job ID: [id number]
[2018-03-28] MEDS: Spironolactone 25 MG TAB PO SCH ×2 (10:13→21:18)
[2018-03-28] MEDS: Anastrozole 1 MG TAB PO SCH (10:13)
[2018-03-28] MEDS: Famotidine 20 MG TAB PO SCH ×2 (10:13→21:18)
[2018-03-28] MEDS: Insulin Glargine 15 UNITS in Pre-Filled Syringe 1 EACH SC SCH ×2 (10:13→21:18)
[2018-03-28] MEDS: Saccharomyces boulardii 250 MG CAP PO SCH (10:13)
--- NOTE | 2018-03-28 11:34 | PDOC.PN ---
- Subjective Encounter Start Date: 03/28/18 Encounter Start Time: 07:50 -: old records requested/rev Patient seen and examined. No new complaints. No overnight events - Objective MAR Reviewed: Yes Vital Signs & Weight: Vital Signs (12 hours) Temp Pulse Resp BP Pulse Ox 03/28/18 08:00 99.6 F 87 20 150/73 H 96 03/28/18 04:00 98.7 F 94 20 165/70 H 93 L 03/28/18 00:00 98.8 F 85 21 H 167/83 H 94 L Weight Weight 233 lb 12.8 oz I&O: 03/27/18 03/28/18 03/29/18 06:59 06:59 06:59 Intake Total 594 Output Total 1550 Balance -956 Result Diagrams: 03/28/18 05:06 03/28/18 05:06 Additional Labs: Accuchecks 03/28/18 03/28/18 03/27/18 10:48 05:33 20:28 POC Glucose 267 H 256 H 304 H 03/27/18 12:09 POC Glucose 379 H EKG Reviewed by me: Yes (nsr) Phys Exam - Physical Examination Constitutional: NAD HEENT: PERRLA, moist MMs, sclera anicteric Neck: no JVD, supple Respiratory: no wheezing, no rhonchi reduced air entry Cardiovascular: RRR, no rub SM+ lower sternal border Gastrointestinal: soft, non-tender, no distention, positive bowel sounds obeisty+ Musculoskeletal: no edema, pulses present Neurological: non-focal, normal sensation Lymphatic: no nodes Psychiatric: normal affect, A&O x 3 Skin: no rash, normal turgor Dx/Plan (1) Acute on chronic diastolic ACC/AHA stage C congestive heart failure Code(s): I50.33 - ACUTE ON CHRONIC DIASTOLIC (CONGESTIVE) HEART FAILURE Status : Acute (2) Acute respiratory failure with hypoxia Code(s): J96.01 - ACUTE RESPIRATORY FAILURE WITH HYPOXIA Status: Acute (3) Community acquired bacterial pneumonia Code(s): J15.9 - UNSPECIFIED BACTERIAL PNEUMONIA Status: Acute (4) Demand ischemia Code(s): I24.8 - OTHER FORMS OF ACUTE ISCHEMIC HEART DISEASE Status: Acute (5) Hypokalemia Code(s): E87.6 - HYPOKALEMIA Status: Acute (6) Hyponatremia Code(s): E87.1 - HYPO-OSMOLALITY AND HYPONATREMIA Status: Acute (7) Sepsis with acute organ dysfunction Code(s): A41.9 - SEPSIS, UNSPECIFIED ORGANISM; R65.20 - SEVERE SEPSIS WITHOUT SEPTIC SHOCK Status: Acute (8) Chronic a-fib Code(s): I48.2 - CHRONIC ATRIAL FIBRILLATION Status: Chronic Comment: rate controlled, on Xarelto (9) Chronic anticoagulation Code(s): Z79.01 - CUSTODIAL (CURRENT) USE OF ANTICOAGULANTS Status: Chronic (10) DM2 (diabetes mellitus, type 2) Status: Chronic Qualifiers: Diabetes mellitus fdc insulin use: with fdc use Diabetes mellitus complication status: with circulatory complication Diabetes mellitus complication detail: with other circulatory complications Qualified Code(s): E11.59 - Type 2 diabetes mellitus with other circulatory complications; Z79.4 - intermediate (current) use of insulin; Z79.4 - terminal carman (current) use of insulin; Z79.4 - terminal carman (current) use of insulin; Z79.4 - intermediate (current) use of insulin Comment: (11) HTN (hypertension) Code(s): I10 - ESSENTIAL (PRIMARY) HYPERTENSION Status: Chronic Qualifiers: Hypertension type: essential hypertension Qualified Code(s): I10 - Essential (primary) hypertension (12) History of pulmonary embolism Code(s): Z86.711 - PERSONAL HISTORY OF PULMONARY EMBOLISM Status: Chronic (13) Hypothyroidism Code(s): E03.9 - HYPOTHYROIDISM, UNSPECIFIED Status: Chronic (14) Obesity (BMI 30.0-34.9) Code(s): E66.9 - OBESITY, UNSPECIFIED Status: Chronic (15) Pulmonary hypertension Code(s): I27.20 - PULMONARY HYPERTENSION, UNSPECIFIED Status: Chronic (16) Severe tricuspid regurgitation Code(s): I07.1 - RHEUMATIC TRICUSPID INSUFFICIENCY Status: Chronic - Plan cont current plan of care, plan discussed w/ family, continue antibiotics, PT/OT , respiratory therapy * continue meropenam * continue diuresis * medication reviewed as below * symptomatic treatment * replace electrolytes * discussed with family bedside. Review of Systems - Review of Systems Constitutional: weakness. negative: fever, chills, sweats, malaise, other Respiratory: Cough, Shortness of Breath. negative: Dry, Hemoptysis, SOB with Excertion, Pleuritic Pain, Sputum, Wheezing Cardiovascular: negative: chest pain, palpitations, orthopnea, paroxysmal nocturnal dyspnea, edema, light headedness, other Gastrointestinal: negative: Nausea, Vomiting, Abdominal Pain, Diarrhea, Constipation, Melena, Hematochezia, Other Genitourinary: negative: Dysuria, Frequency, Incontinence, Hematuria, Retention , Other Musculoskeletal: negative: Neck Pain, Shoulder Pain, Arm Pain, Back Pain, Hand Pain, Leg Pain, Foot Pain, Other Skin: negative: Rash, Lesions, Farzad, Bruising, Other - Medications/Allergies Allergies/Adverse Reactions: Allergies Allergy/AdvReac Type Severity Reaction Status Date / Time Penicillins Allergy Hives Verified 11/04/14 13:06 Medications: Current Medications Acetaminophen (Tylenol) 1,000 mg PO Q6H PRN PRN Reason: Mild Pain (1-3) Albuterol/Ipratropium (Duoneb) 3 ml NEB [id number] PRN PRN Reason: SOB &/or Wheezing Anastrozole (Arimidex) 1 mg PO DAILY [facility] Last Admin: 03/28/18 10:13 Dose: 1 mg Benzonatate (Tessalon) 100 mg PO Q6H PRN PRN Reason: Cough Bisacodyl (Dulcolax) 10 mg PO DAILYPRN PRN PRN Reason: Constipation Clonidine (Catapres) 0.1 mg PO Q4H PRN PRN Reason: SBP > 160____ Last Admin: 03/27/18 14:07 Dose: 0.1 mg Dextrose/Water (Dextrose 50%) 25 gm SLOW IVP PRN PRN PRN Reason: Hypoglycemia Famotidine (Pepcid) 20 mg PO BID [facility] Last Admin: 03/28/18 10:13 Dose: 20 mg Furosemide (Lasix) 40 mg SLOW IVP 0600,1400 [facility] Last Admin: 03/28/18 05:02 Dose: 40 mg Glucagon (Glucagon) 1 mg IM PRN PRN PRN Reason: Hypoglycemia Hydralazine HCl (Apresoline) 10 mg SLOW IVP Q4H PRN PRN Reason: SBP > 180 and HR < 70 Meropenem 1 gm/ Device 50 mls @ 100 mls/hr IVPB 0400,1200,2000 [facility] Last Admin: 03/28/18 04:31 Dose: 50 mls Dextrose/Water (D5w) 1,000 mls @ 0 mls/hr IV .Q0M PRN PRN Reason: Hypoglycemia Insulin Glargine 15 units/ (Miscellaneous Medication) 0.15 mls @ 0 mls/hr SC HS [facility] Last Admin: 03/27/18 21:25 Dose: 0.15 mls Insulin Glargine 15 units/ (Miscellaneous Medication) 0.15 mls @ 0 mls/hr SC QAM [facility] Last Admin: 03/28/18 10:13 Dose: 0.15 mls Insulin Human Lispro (Humalog) 0 units SC .AGGRESSIVE SLIDING PRN PRN Reason: Aggressive Correctional Scale Last Admin: 03/27/18 12:18 Dose: 13 unit Insulin Human Lispro (Humalog) 0 units SC .BEDTIME SLIDING SC PRN PRN Reason: Bedtime Correctional Scale Last Admin: 03/27/18 21:26 Dose: 4 unit Levothyroxine Sodium (Synthroid) 112 mcg PO 0600 [facility] Last Admin: 03/28/18 05:02 Dose: 112 mcg Loperamide HCl (Imodium) 2 mg PO PRN PRN PRN Reason: Diarrhea/Loose Stools Metolazone (Zaroxolyn) 5 mg PO MoFr@0900 [facility] Metolazone (Zaroxolyn) 2.5 mg PO WeSa@0900 [facility] Nitroglycerin (Nitrostat) 0.4 mg SL Q5MIN PRN PRN Reason: Chest Pain Ondansetron HCl (Zofran) 4 mg IVP Q6H PRN PRN Reason: Nausea/Vomiting Ondansetron HCl (Zofran Odt) 4 mg PO Q6H PRN PRN Reason: Nausea/Vomiting Ondansetron HCl (Zofran) 4 mg IVP Q6H PRN PRN Reason: Nausea/Vomiting Potassium Chloride (K-Dur) 40 meq PO 1300 [facility] Stop: 03/28/18 17:00 Rivaroxaban (Xarelto) 15 mg PO QPM-[facility] Last Admin: 03/27/18 17:28 Dose: 15 mg Saccharomyces Boulardii (Florastor) 250 mg PO DAILY [facility] Last Admin: 03/28/18 10:13 Dose: 250 mg Senna/Docusate Sodium (Senokot S) 2 tab PO BID PRN PRN Reason: Constipation Sodium Chloride ([place] Nasal [place] 0.65%) 0 ml EA NARE QIDPRN PRN PRN Reason: Nasal Congestion Sodium Chloride (Flush - Normal Saline) 10 ml IVF Q12HR ISAEL Sodium Chloride (Flush - Normal Saline) 10 ml IVF PRN PRN PRN Reason: Saline Flush Last Admin: 03/28/18 04:37 Dose: 10 ml Spironolactone (Aldactone) 25 mg PO BID [facility] Last Admin: 03/28/18 10:13 Dose: 25 mg Throat Lozenges (Cepastat Lozenges) 1 garth PO Q2H PRN PRN Reason: Sore Throat Tramadol HCl (Ultram) 50 mg PO Q6HR PRN PRN Reason: pain 4-6
[2018-03-28] MEDS: HumaLOG 300 UNITS/3 ML VIAL SC PRN ×3 (12:22→21:19)
[2018-03-28] MEDS: Rivaroxaban 15 MG TAB PO SCH (17:29)
--- NOTE | 2018-03-28 22:30 | CON ---
DATE OF CONSULTATION: 03/28/2018 HISTORY: Mr. 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 He also has sleep apnea. He presented with complaints of one week of shortness of breath. He has had no fever or chills at home. He denies cough prior to his admission. He states he is feeling a little better. PAST MEDICAL HISTORY: Remarkable for diastolic dysfunction. When he was in the hospital in August, it was noted that he was drinking a gallon of water plus ice a day. 1. History of diabetes. 2. History of significant truncal obesity. 3. Hypothyroidism. 4. History of hypertension. 5. History of atrial fibrillation. 6. History of knee replacement. 7. History of cholecystectomy. 8. History of thyroidectomy. 9. History of mitral regurgitation and aortic stenosis. 10. History of chronic anticoagulation. 11. History of small amount of ascites, seen on CTs in the past. FAMILY HISTORY: Negative for lung disease in early age. SOCIAL HISTORY: He is not smoking, not drinking. REVIEW OF SYSTEMS: Ten-point review of systems completed, otherwise negative. Weight on admission was reported at 232. Intake and output, was negative almost a liter, but his weight went up per the recorded weights. PHYSICAL EXAMINATION: GENERAL: He states he is feeling a little better. VITAL SIGNS: He is afebrile. Heart rate is 101, respiratory rate is 21, oximetry is 95% on 2.5 L, and blood pressure 143/71. HEENT: Pupils are equal. Sclera is icteric. His extraocular movements are full. NECK: Supple. LUNGS: Remarkable for crackles in both lung bases. HEART: Regular rhythm. S1 and S2 are distant. ABDOMEN: Massively distended. EXTREMITIES: Without clubbing or cyanosis. He does have chronic stasis changes in both lower extremities. LABORATORY DATA: Sodium 133, potassium 4.1, chloride 95, bicarb 26, BUN 13, creatinine 1.29, bilirubin is 5.7, and alkaline phosphatase is 307. White count 12.8, hemoglobin 13.3, and platelets 155. DIAGNOSTIC DATA: Chest radiograph shows left greater than right effusion. Chest CT angiogram showed no embolic disease. Small infiltrate in the upper lobe on the right. It is unclear whether this is secondary to mucus plugging or actually infectious process. There is a finding suggestive of edema. IMPRESSION: 1. Diastolic heart failure. 2. Chronic atrial fibrillation. 3. Pulmonary hypertension. 4. Hyperbilirubinemia out of proportion to what we normally see with pulmonary hypertension. 5. History of sleep apnea. As a recall, he is noncompliant with CPAP. 6. History of nonsustained ventricular tachycardia in the past. PLAN: Continue gentle diuresis. Gastroenterology endpoint on his hyperbilirubinemia might be indicated. He does have changes suggestive of cirrhosis on ultrasound. His echocardiogram shows evidence of significant pulmonary hypertension. This is a 50 minute consult, with greater than 50% time spent on the unit coordinating care. Job ID: [id number] MTDD
[2018-03-29] MEDS: MEROPENEM 1 GM/50 ML 1 GM in Premix Bag 1 BAG IVPB SCH ×2 (04:35→11:41)
[2018-03-29] MEDS: Furosemide 40 MG/4 ML VIAL SLOW IVP SCH (05:36)
[2018-03-29] MEDS: Levothyroxine Sodium 112 MCG TAB PO SCH (05:36)
[2018-03-29 06:00] LABS: Anion Gap 9 mmol/L (10-20); BUN (Urea Nitrogen) 28 mg/dL (8.4-25.7); Calc. Creatinine Clearance 71 mL/min (70-130); Calcium 10.1 mg/dL (7.8-10.44); Carbon Dioxide 37 mmol/L (23-31); Chloride 89 mmol/L (98-107); Estimated GFR-MDRD 56; Glucose 175 mg/dL (83-110); Potassium 3.4 mmol/L (3.5-5.1); Sodium 132 mmol/L (136-145)
[2018-03-29] MEDS ORDERED: Potassium Chloride 20 MEQ TAB PO SCH (07:30)
[2018-03-29] MEDS ORDERED: Metolazone 2.5 MG TAB PO SCH (09:00)
[2018-03-29] MEDS: Insulin Glargine 15 UNITS in Pre-Filled Syringe 1 EACH SC SCH ×2 (09:14→21:17)
[2018-03-29] MEDS: Saccharomyces boulardii 250 MG CAP PO SCH (09:16)
[2018-03-29] MEDS: Spironolactone 25 MG TAB PO SCH ×2 (09:16→21:17)
[2018-03-29] MEDS: Famotidine 20 MG TAB PO SCH ×2 (09:17→21:17)
[2018-03-29] MEDS: Anastrozole 1 MG TAB PO SCH (09:17)
--- NOTE | 2018-03-29 09:43 | PDOC.PN ---
- Subjective Encounter Start Date: 03/29/18 Encounter Start Time: 07:50 this morning pt is sleepy, has dyspnea, no fever, family bedside Patient seen and examined. No overnight events - Objective MAR Reviewed: Yes Vital Signs & Weight: Vital Signs (12 hours) Temp Pulse Resp BP Pulse Ox 03/29/18 04:00 98.7 F 105 H 20 129/67 92 L 03/28/18 23:46 99.6 F 94 18 144/56 H 94 L Weight Admit Weight 232 lb 9 oz Weight 235 lb 4.8 oz I&O: 03/28/18 03/29/18 03/30/18 06:59 06:59 06:59 Intake Total 2394 Output Total 3100 Balance -706 Result Diagrams: 03/28/18 05:06 03/29/18 05:02 Additional Labs: Accuchecks 03/29/18 03/28/18 03/28/18 05:49 20:53 16:35 POC Glucose 162 H 269 H 270 H 03/28/18 10:48 POC Glucose 267 H EKG Reviewed by me: Yes Phys Exam - Physical Examination Constitutional: NAD sleepy this morning HEENT: PERRLA, sclera anicteric Neck: supple high JVD Respiratory: no wheezing, no rhonchi few rales Cardiovascular: RRR, no rub SM+ Gastrointestinal: soft, no distention, positive bowel sounds obesity+ Musculoskeletal: pulses present, edema present Neurological: non-focal, normal sensation Lymphatic: no nodes Psychiatric: normal affect Skin: no rash, normal turgor Dx/Plan (1) Acute on chronic diastolic ACC/AHA stage C congestive heart failure Code(s): I50.33 - ACUTE ON CHRONIC DIASTOLIC (CONGESTIVE) HEART FAILURE Status : Acute (2) Acute respiratory failure with hypoxia Code(s): J96.01 - ACUTE RESPIRATORY FAILURE WITH HYPOXIA Status: Acute (3) Community acquired bacterial pneumonia Code(s): J15.9 - UNSPECIFIED BACTERIAL PNEUMONIA Status: Acute (4) Demand ischemia Code(s): I24.8 - OTHER FORMS OF ACUTE ISCHEMIC HEART DISEASE Status: Acute (5) Hypokalemia Code(s): E87.6 - HYPOKALEMIA Status: Acute (6) Hyponatremia Code(s): E87.1 - HYPO-OSMOLALITY AND HYPONATREMIA Status: Acute (7) Sepsis with acute organ dysfunction Code(s): A41.9 - SEPSIS, UNSPECIFIED ORGANISM; R65.20 - SEVERE SEPSIS WITHOUT SEPTIC SHOCK Status: Acute (8) Chronic a-fib Code(s): I48.2 - CHRONIC ATRIAL FIBRILLATION Status: Chronic Comment: rate controlled, on Xarelto (9) Chronic anticoagulation Code(s): Z79.01 - RING MAKER (CURRENT) USE OF ANTICOAGULANTS Status: Chronic (10) DM2 (diabetes mellitus, type 2) Status: Chronic Qualifiers: Diabetes mellitus manager long term care insulin use: with residential use Diabetes mellitus complication status: with circulatory complication Diabetes mellitus complication detail: with other circulatory complications Qualified Code(s): E11.59 - Type 2 diabetes mellitus with other circulatory complications; Z79.4 - oil heaterman (current) use of insulin; Z79.4 - oil heaterman (current) use of insulin; Z79.4 - assisted (current) use of insulin; Z79.4 - oil heaterman (current) use of insulin Comment: (11) HTN (hypertension) Code(s): I10 - ESSENTIAL (PRIMARY) HYPERTENSION Status: Chronic Qualifiers: Hypertension type: essential hypertension Qualified Code(s): I10 - Essential (primary) hypertension (12) History of pulmonary embolism Code(s): Z86.711 - PERSONAL HISTORY OF PULMONARY EMBOLISM Status: Chronic (13) Hypothyroidism Code(s): E03.9 - HYPOTHYROIDISM, UNSPECIFIED Status: Chronic (14) Obesity (BMI 30.0-34.9) Code(s): E66.9 - OBESITY, UNSPECIFIED Status: Chronic (15) Pulmonary hypertension Code(s): I27.20 - PULMONARY HYPERTENSION, UNSPECIFIED Status: Chronic (16) Severe tricuspid regurgitation Code(s): I07.1 - RHEUMATIC TRICUSPID INSUFFICIENCY Status: Chronic - Plan cont current plan of care, plan discussed w/ family, continue antibiotics, PT/OT , respiratory therapy * medication reviewed as below * symptomatic treatment * continue meropenam * continue lasix * discussed with family bedside * continue PT * not ready for discharge, will need few more days, may need rehab. Review of Systems - Review of Systems ENT: negative: Ear Pain, Ear Discharge, Nose Pain, Nose Discharge, Nose Congestion, Mouth Pain, Mouth Swelling, Throat Pain, Throat Swelling, Other Respiratory: Cough, Shortness of Breath, SOB with Excertion. negative: Dry, Hemoptysis, Pleuritic Pain, Sputum, Wheezing Cardiovascular: negative: chest pain, palpitations, orthopnea, paroxysmal nocturnal dyspnea, edema, light headedness, other Gastrointestinal: negative: Nausea, Vomiting, Abdominal Pain, Diarrhea, Constipation, Melena, Hematochezia, Other Genitourinary: negative: Dysuria, Frequency, Incontinence, Hematuria, Retention , Other Musculoskeletal: negative: Neck Pain, Shoulder Pain, Arm Pain, Back Pain, Hand Pain, Leg Pain, Foot Pain, Other Other: not reliable due to sleepiness - Medications/Allergies Allergies/Adverse Reactions: Allergies Allergy/AdvReac Type Severity Reaction Status Date / Time Penicillins Allergy Hives Verified 11/04/14 13:06 Medications: Current Medications Acetaminophen (Tylenol) 1,000 mg PO Q6H PRN PRN Reason: Mild Pain (1-3) Albuterol/Ipratropium (Duoneb) 3 ml NEB [id number] PRN PRN Reason: SOB &/or Wheezing Anastrozole (Arimidex) 1 mg PO DAILY [facility] Last Admin: 03/28/18 10:13 Dose: 1 mg Benzonatate (Tessalon) 100 mg PO Q6H PRN PRN Reason: Cough Bisacodyl (Dulcolax) 10 mg PO DAILYPRN PRN PRN Reason: Constipation Clonidine (Catapres) 0.1 mg PO Q4H PRN PRN Reason: SBP > 160____ Last Admin: 03/27/18 14:07 Dose: 0.1 mg Dextrose/Water (Dextrose 50%) 25 gm SLOW IVP PRN PRN PRN Reason: Hypoglycemia Famotidine (Pepcid) 20 mg PO BID [facility] Last Admin: 03/28/18 21:18 Dose: 20 mg Furosemide (Lasix) 40 mg SLOW IVP 0600,1400 [facility] Last Admin: 03/29/18 05:36 Dose: 40 mg Glucagon (Glucagon) 1 mg IM PRN PRN PRN Reason: Hypoglycemia Hydralazine HCl (Apresoline) 10 mg SLOW IVP Q4H PRN PRN Reason: SBP > 180 and HR < 70 Meropenem 1 gm/ Device 50 mls @ 100 mls/hr IVPB 0400,1200,2000 [facility] Last Admin: 03/29/18 04:35 Dose: 50 mls Dextrose/Water (D5w) 1,000 mls @ 0 mls/hr IV .Q0M PRN PRN Reason: Hypoglycemia Insulin Glargine 15 units/ (Miscellaneous Medication) 0.15 mls @ 0 mls/hr SC HS [facility] Last Admin: 03/28/18 21:18 Dose: 0.15 mls Insulin Glargine 15 units/ (Miscellaneous Medication) 0.15 mls @ 0 mls/hr SC QAM [facility] Last Admin: 03/28/18 10:13 Dose: 0.15 mls Insulin Human Lispro (Humalog) 0 units SC .AGGRESSIVE SLIDING PRN PRN Reason: Aggressive Correctional Scale Last Admin: 03/28/18 18:23 Dose: 9 unit Insulin Human Lispro (Humalog) 0 units SC .BEDTIME SLIDING SC PRN PRN Reason: Bedtime Correctional Scale Last Admin: 03/28/18 21:19 Dose: 3 unit Levothyroxine Sodium (Synthroid) 112 mcg PO 0600 [facility] Last Admin: 03/29/18 05:36 Dose: 112 mcg Loperamide HCl (Imodium) 2 mg PO PRN PRN PRN Reason: Diarrhea/Loose Stools Metolazone (Zaroxolyn) 5 mg PO MoFr@0900 [facility] Metolazone (Zaroxolyn) 2.5 mg PO WeSa@0900 [facility] Nitroglycerin (Nitrostat) 0.4 mg SL Q5MIN PRN PRN Reason: Chest Pain Ondansetron HCl (Zofran Odt) 4 mg PO Q6H PRN PRN Reason: Nausea/Vomiting Ondansetron HCl (Zofran) 4 mg IVP Q6H PRN PRN Reason: Nausea/Vomiting Rivaroxaban (Xarelto) 15 mg PO QPM-[facility] Last Admin: 03/28/18 17:29 Dose: 15 mg Saccharomyces Boulardii (Florastor) 250 mg PO DAILY [facility] Last Admin: 03/28/18 10:13 Dose: 250 mg Senna/Docusate Sodium (Senokot S) 2 tab PO BID PRN PRN Reason: Constipation Sodium Chloride ([place] Nasal [place] 0.65%) 0 ml EA NARE QIDPRN PRN PRN Reason: Nasal Congestion Sodium Chloride (Flush - Normal Saline) 10 ml IVF Q12HR [facility] Last Admin: 03/28/18 21:27 Dose: 10 ml Sodium Chloride (Flush - Normal Saline) 10 ml IVF PRN PRN PRN Reason: Saline Flush Last Admin: 03/29/18 04:36 Dose: 10 ml Spironolactone (Aldactone) 25 mg PO BID [facility] Last Admin: 03/28/18 21:18 Dose: 25 mg Throat Lozenges (Cepastat Lozenges) 1 garth PO Q2H PRN PRN Reason: Sore Throat Tramadol HCl (Ultram) 50 mg PO Q6HR PRN PRN Reason: pain 4-6
[2018-03-29 10:50] LABS: Actual Bicarbonate (HCO3a) 37.9 mEq/L (22-28); Calcium, Ionized 1.21 mmol/L (1.12-1.30); Carboxyhemoglobin (COHb) 2.7 gm% (0.0-3.0); Hemoglobin (Hb) 13.5 g/dL (14.0-18.0); O2 Tension (PaO2) 83.4 mmHg (> 60.0); pH, Arterial 7.37 (7.35-7.45)
[2018-03-29 10:51] LABS: CO2 Tension 66.8 mmHg (35.0-45.0); Puncture Site LR
--- NOTE | 2018-03-29 11:07 | PRG ---
DATE OF SERVICE: 03/29/2018 SUBJECTIVE: Mr. Bell is more confused today. He knows who I am, tells me the date, but I think he read it off the board behind me. He did not recognize his son earlier. He thought it was "my father." He follows directions. OBJECTIVE: VITAL SIGNS: His blood pressure 129/67, pulse is in the 90s with atrial fibrillation, and oxygen saturations 95%. LUNGS: Clear. CARDIAC: Irregularly irregular. ABDOMEN: Ascites and nontender. EXTREMITIES: Still moderate edema. The I and O, had a better output yesterday with 3 L out. PERTINENT LABORATORY: His potassium was 3.4, his CO2 is higher at 37, BUN is 28 , and creatinine 1.25, which is going up. ASSESSMENT: 1. Confusion ? related to metabolic alkalosis. 2. Mild hypokalemia. PLAN: 1. We will stop furosemide for now. 2. He had some mild hematuria yesterday, seems to be somewhat better today. 3. If the symptoms do not improve, need to consider a CT scan. The nurse will contact Dr. Gates if the patient's confusion does not improve. Job ID: [id number] MTDD
[2018-03-29] MEDS: HumaLOG 300 UNITS/3 ML VIAL SC PRN ×3 (11:41→21:19)
--- NOTE | 2018-03-29 14:12 | PRG ---
DATE OF SERVICE: 03/29/2018 SUBJECTIVE: Mr. Bell clinically looks about the same as yesterday. Apparently, his mental status has been waxing and waning. I have ordered a serum ammonia level. I have also ordered a noncontrast head CT, although I doubt there will be any parenchymal brain abnormalities. I do not feel he needs a contrast. OBJECTIVE: VITAL SIGNS: He is afebrile. Heart rate is 100, respiratory rate is 22, oximetry is 95 on 2 L, and blood pressure 135/72. LUNGS: Clear, distant. HEART: Regular rhythm. ABDOMEN: Massive. EXTREMITIES: With stasis changes. Intake and outputs, negative 706. LABORATORY DATA: White count 12.8, hemoglobin 13.3, and platelets 155. Sodium 132, potassium 3.4, chloride 89, bicarb 37 and his bicarb was 26 on admission, BUN is 28, and creatinine is 1.25. Blood gas ordered by the hospitalist; pH 7.37, CO2 of 66, and pO2 of 83. IMPRESSION: 1. Metabolic alkalosis secondary to diuresis. His diuretics have been held. He will be given Diamox this afternoon. 2. Pulmonary hypertension secondary to diastolic heart failure combined with untreated sleep apnea. 3. Obesity. 4. Chronic hepatic congestion, now with probable cirrhosis, jaundice, and hyperbilirubinemia. PLAN: Given that he is on Xarelto, we need to make sure his liver synthetic function has been auto anticoagulating him. I will order coag studies. Make further recommendations. If his ProTime is prolonged, his anticoagulants need to be held. I will continue to follow. His alkalosis should get better. He does not need BiPAP. He is clinically stable. Job ID: [id number]
[2018-03-29 15:06] LABS: INR-International Normal Ratio 2.5; PTT 55.7 SEC (22.9-36.1); Prothrombin Time 26.7 SEC (12.0-14.7)
--- NOTE | 2018-03-29 15:38 | CT ---
CT BRAIN NONCONTRAST: DATE: 03-29-18 TIME: 1:43 p.m. HISTORY: 82-year-old male with altered mental status, confusion. COMPARISON: 03-27-18 FINDINGS: Again noted is the small to moderate sized patchy region of low attenuation in the left upper parieta l subcortical and deep white matter involving the perez radiata and centrum semiovale. No definite c ortical involvement is identified. Elsewhere, there are mild to moderate chronic ischemic white matter changes bilaterally. The ventricl es are normal in size and configuration. There is age - appropriate parenchymal volume loss. No mass effect, midline shift, or extraaxial fluid collection. No acute intraaxial or extraaxial hemorrhage. Calvarium is intact. No significant interval change overall. IMPRESSION: 1. Asymmetrical region of left parietal lobe low attenuation. It is uncertain whether this represents edema or gliosis. Consider MRI of the brain with and without contrast for further evaluation. 2. No intracranial mass effect or acute intracranial hemorrhage. NORA Patiño POS: GEOVANY
[2018-03-29] MEDS: Rivaroxaban 15 MG TAB PO SCH (16:58)
[2018-03-30] MEDS: Levothyroxine Sodium 112 MCG TAB PO SCH (05:23)
[2018-03-30 06:16] LABS: Anion Gap 11 mmol/L (10-20); BUN (Urea Nitrogen) 39 mg/dL (8.4-25.7); Calc. Creatinine Clearance 79 mL/min (70-130); Carbon Dioxide 35 mmol/L (23-31); Chloride 89 mmol/L (98-107); Estimated GFR-MDRD 61; Glucose 227 mg/dL (83-110); Potassium 4.1 mmol/L (3.5-5.1); Sodium 131 mmol/L (136-145)
[2018-03-30] MEDS ORDERED: Acetaminophen 500 MG TAB PO PRN (07:56)
[2018-03-30 09:08] LABS: ALT (SGPT) 24 U/L (8-55); AST (SGOT) 43 U/L (5-34); Albumin 3.1 g/dL (3.4-4.8); Alkaline Phosphatase 219 U/L (40-150); Bilirubin, Direct 2.3 mg/dL (0.1-0.3); Bilirubin, Total 3.3 mg/dL (0.2-1.2); Protein, Total 7.5 g/dL (5.8-8.1)
[2018-03-30] MEDS: Anastrozole 1 MG TAB PO SCH (09:21)
[2018-03-30] MEDS: Spironolactone 25 MG TAB PO SCH ×2 (09:21→21:57)
[2018-03-30] MEDS: Saccharomyces boulardii 250 MG CAP PO SCH (09:21)
[2018-03-30] MEDS: Famotidine 20 MG TAB PO SCH ×2 (09:21→21:54)
[2018-03-30] MEDS: Insulin Glargine 20 UNITS in Pre-Filled Syringe 1 EACH SC SCH ×2 (09:23→21:54)
--- NOTE | 2018-03-30 10:13 | PDOC.PN ---
- Subjective Encounter Start Date: 03/30/18 Encounter Start Time: 09:00 yesterday antibiotics discontinued and today he has low grade fever, he is weak , still has dyspnea - Objective MAR Reviewed: Yes Vital Signs & Weight: Vital Signs (12 hours) Temp Pulse Resp BP BP Pulse Ox 03/30/18 08:10 94 L 03/30/18 08:00 100.2 F H 105 H 22 H 127/63 73 L 03/30/18 04:00 98.2 F 91 20 127/76 93 L 03/30/18 00:00 24 H Weight Admit Weight 232 lb 9 oz Weight 239 lb 8 oz I&O: 03/29/18 03/30/18 03/31/18 06:59 06:59 06:59 Intake Total 2394 1780 Output Total 3100 850 Balance -706 930 Result Diagrams: 03/28/18 05:06 03/30/18 05:08 Additional Labs: Accuchecks 03/30/18 03/29/18 03/29/18 05:52 20:43 16:36 POC Glucose 217 H 375 H 364 H 03/29/18 10:54 POC Glucose 278 H Radiology Reviewed by me: Yes (CT brain negative) EKG Reviewed by me: Yes (nsr) Phys Exam - Physical Examination Constitutional: NAD HEENT: PERRLA, moist MMs icterus+ high JVD Respiratory: no wheezing, no rhonchi reduced air entry at base Cardiovascular: RRR, no rub SM+ Gastrointestinal: soft, no distention, positive bowel sounds obesity+ Musculoskeletal: edema present chronic changes Neurological: non-focal, normal sensation Lymphatic: no nodes Psychiatric: normal affect, A&O x 3 Skin: no rash, normal turgor Dx/Plan (1) Acute on chronic diastolic ACC/AHA stage C congestive heart failure Code(s): I50.33 - ACUTE ON CHRONIC DIASTOLIC (CONGESTIVE) HEART FAILURE Status : Acute (2) Acute respiratory failure with hypoxia Code(s): J96.01 - ACUTE RESPIRATORY FAILURE WITH HYPOXIA Status: Acute (3) Community acquired bacterial pneumonia Code(s): J15.9 - UNSPECIFIED BACTERIAL PNEUMONIA Status: Acute (4) Demand ischemia Code(s): I24.8 - OTHER FORMS OF ACUTE ISCHEMIC HEART DISEASE Status: Acute (5) Hypokalemia Code(s): E87.6 - HYPOKALEMIA Status: Acute (6) Hyponatremia Code(s): E87.1 - HYPO-OSMOLALITY AND HYPONATREMIA Status: Acute (7) Sepsis with acute organ dysfunction Code(s): A41.9 - SEPSIS, UNSPECIFIED ORGANISM; R65.20 - SEVERE SEPSIS WITHOUT SEPTIC SHOCK Status: Acute (8) Chronic a-fib Code(s): I48.2 - CHRONIC ATRIAL FIBRILLATION Status: Chronic Comment: rate controlled, on Xarelto (9) Chronic anticoagulation Code(s): Z79.01 - 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) USE OF ANTICOAGULANTS Status: Chronic (10) DM2 (diabetes mellitus, type 2) Status: Chronic Qualifiers: Diabetes mellitus skilled nursing insulin use: with skilled nursing use Diabetes mellitus complication status: with circulatory complication Diabetes mellitus complication detail: with other circulatory complications Qualified Code(s): E11.59 - Type 2 diabetes mellitus with other circulatory complications; Z79.4 - long-term (current) use of insulin; Z79.4 - terminal press operator (current) use of insulin; Z79.4 - long-term (current) use of insulin; Z79.4 - terminal press operator (current) use of insulin Comment: (11) HTN (hypertension) Code(s): I10 - ESSENTIAL (PRIMARY) HYPERTENSION Status: Chronic Qualifiers: Hypertension type: essential hypertension Qualified Code(s): I10 - Essential (primary) hypertension (12) History of pulmonary embolism Code(s): Z86.711 - PERSONAL HISTORY OF PULMONARY EMBOLISM Status: Chronic (13) Hypothyroidism Code(s): E03.9 - HYPOTHYROIDISM, UNSPECIFIED Status: Chronic (14) Obesity (BMI 30.0-34.9) Code(s): E66.9 - OBESITY, UNSPECIFIED Status: Chronic (15) Pulmonary hypertension Code(s): I27.20 - PULMONARY HYPERTENSION, UNSPECIFIED Status: Chronic (16) Severe tricuspid regurgitation Code(s): I07.1 - RHEUMATIC TRICUSPID INSUFFICIENCY Status: Chronic - Plan cont current plan of care, PT/OT, manager social services * antibiotics discontinued by pulmonary * medication reviewed as below * symptomatic treatment * pt request rehab screen * continue PT * will monitor for any further recurrent fever. Review of Systems - Review of Systems Constitutional: fever, weakness. negative: chills, sweats, malaise, other Respiratory: Shortness of Breath, SOB with Excertion. negative: Cough, Dry, Hemoptysis, Pleuritic Pain, Sputum, Wheezing Cardiovascular: negative: chest pain, palpitations, orthopnea, paroxysmal nocturnal dyspnea, edema, light headedness, other Gastrointestinal: negative: Nausea, Vomiting, Abdominal Pain, Diarrhea, Constipation, Melena, Hematochezia, Other Genitourinary: negative: Dysuria, Frequency, Incontinence, Hematuria, Retention , Other Musculoskeletal: negative: Neck Pain, Shoulder Pain, Arm Pain, Back Pain, Hand Pain, Leg Pain, Foot Pain, Other Skin: negative: Rash, Lesions, Farzad, Bruising, Other - Medications/Allergies Allergies/Adverse Reactions: Allergies Allergy/AdvReac Type Severity Reaction Status Date / Time Penicillins Allergy Hives Verified 11/04/14 13:06 Medications: Current Medications Acetaminophen (Tylenol) 500 mg PO Q6H PRN PRN Reason: Mild Pain (1-3) Albuterol/Ipratropium (Duoneb) 3 ml NEB [id number] PRN PRN Reason: SOB &/or Wheezing Anastrozole (Arimidex) 1 mg PO DAILY [facility] Last Admin: 03/30/18 09:21 Dose: 1 mg Benzonatate (Tessalon) 100 mg PO Q6H PRN PRN Reason: Cough Bisacodyl (Dulcolax) 10 mg PO DAILYPRN PRN PRN Reason: Constipation Clonidine (Catapres) 0.1 mg PO Q4H PRN PRN Reason: SBP > 160____ Last Admin: 03/27/18 14:07 Dose: 0.1 mg Dextrose/Water (Dextrose 50%) 25 gm SLOW IVP PRN PRN PRN Reason: Hypoglycemia Famotidine (Pepcid) 20 mg PO BID [facility] Last Admin: 03/30/18 09:21 Dose: 20 mg Glucagon (Glucagon) 1 mg IM PRN PRN PRN Reason: Hypoglycemia Hydralazine HCl (Apresoline) 10 mg SLOW IVP Q4H PRN PRN Reason: SBP > 180 and HR < 70 Dextrose/Water (D5w) 1,000 mls @ 0 mls/hr IV .Q0M PRN PRN Reason: Hypoglycemia Insulin Glargine 20 units/ (Miscellaneous Medication) 0.2 mls @ 0 mls/hr SC [facility] Insulin Glargine 20 units/ (Miscellaneous Medication) 0.2 mls @ 0 mls/hr SC QAM [facility] Last Admin: 03/30/18 09:23 Dose: 0.2 mls Acetazolamide Sodium 500 mg/ (Sodium Chloride) 50 mls @ 100 mls/hr IVPB 1400 [facility] Stop: 04/01/18 06:00 Insulin Human Lispro (Humalog) 0 units SC .AGGRESSIVE SLIDING PRN PRN Reason: Aggressive Correctional Scale Last Admin: 03/29/18 16:58 Dose: 13 unit Insulin Human Lispro (Humalog) 0 units SC .BEDTIME SLIDING SC PRN PRN Reason: Bedtime Correctional Scale Last Admin: 03/29/18 21:19 Dose: 5 unit Levothyroxine Sodium (Synthroid) 112 mcg PO 0600 [facility] Last Admin: 03/30/18 05:23 Dose: 112 mcg Loperamide HCl (Imodium) 2 mg PO PRN PRN PRN Reason: Diarrhea/Loose Stools Nitroglycerin (Nitrostat) 0.4 mg SL Q5MIN PRN PRN Reason: Chest Pain Ondansetron HCl (Zofran Odt) 4 mg PO Q6H PRN PRN Reason: Nausea/Vomiting Ondansetron HCl (Zofran) 4 mg IVP Q6H PRN PRN Reason: Nausea/Vomiting Potassium Chloride (K-Dur) 40 meq PO ONE [facility] Saccharomyces Boulardii (Florastor) 250 mg PO DAILY [facility] Last Admin: 03/30/18 09:21 Dose: 250 mg Senna/Docusate Sodium (Senokot S) 2 tab PO BID PRN PRN Reason: Constipation Sodium Chloride ([place] Nasal [place] 0.65%) 0 ml EA NARE QIDPRN PRN PRN Reason: Nasal Congestion Sodium Chloride (Flush - Normal Saline) 10 ml IVF Q12HR [facility] Last Admin: 03/30/18 09:21 Dose: 10 ml Sodium Chloride (Flush - Normal Saline) 10 ml IVF PRN PRN PRN Reason: Saline Flush Last Admin: 03/29/18 04:36 Dose: 10 ml Spironolactone (Aldactone) 25 mg PO BID [facility] Last Admin: 03/30/18 09:21 Dose: 25 mg Throat Lozenges (Cepastat Lozenges) 1 garth PO Q2H PRN PRN Reason: Sore Throat Tramadol HCl (Ultram) 50 mg PO Q6HR PRN PRN Reason: pain 4-6
[2018-03-30 10:38] LABS: Hemoglobin 12.6 g/dL (14.0-18.0); Mean Corpuscular HGB CONC 30.8 g/dL (32.0-36.0); Mean Corpuscular Hemoglobin 31.5 pg (27.0-31.0); Mean Platelet Volume 8.9 fL (7.4-10.4); Platelet Count 159 thou/uL (130-400); Red Blood Cell (RBC) Count 4.01 mill/uL (4.70-6.10); White Blood Cell (WBC) Count 11.1 thou/uL (4.8-10.8)
[2018-03-30 11:13] LABS: Band 45 % (5-11); Blast 1 % (0-0); Lymphocytes 2 % (21-51); MDiff Complete? YES; Metamyelocyte 2 % (0-0); Monocytes 2 % (0-10); Myelocyte 3 % (0-0); Neutrophil 42 % (42-75); Reactive Lymphocytes 3 % (0-10); Reflex for Review?? YES
--- NOTE | 2018-03-30 11:14 | PRG ---
DATE OF SERVICE: 03/30/2018 SUBJECTIVE: Nahun Bell has no complaints. OBJECTIVE: VITAL SIGNS: He is afebrile. Heart rate is 91, respiratory rate is 20, oximetry is 93% on 2 L, and blood pressure 127/76. LUNGS: Clear. HEART: Regular rhythm. ABDOMEN: Still massive. EXTREMITIES: With stasis changes. Intake and outputs, positive 930. LABORATORY DATA: Sodium 131; potassium 4.1; chloride 89; bicarb 35, which is down from 37 yesterday; BUN 39; and creatinine 1.15. IMPRESSION: Hepatic congestion with hyperbilirubinemia and cirrhotic changes on CT. His ammonia was normal. His INR was prolonged, so his Xarelto probably should be held. I will ask Gastroenterology see him. Aldactone was started, but he is already hyponatremic with a normal potassium, so this may not work well. His electrolytes will need to be monitored closely. We will continue to follow. Job ID: [id number] [facility]
--- NOTE | 2018-03-30 11:14 | PRG ---
DATE OF SERVICE: 03/30/2018 SUBJECTIVE: Mr. Bell feels better today. He is more alert, more oriented. He is less short of breath. OBJECTIVE: VITAL SIGNS: His blood pressure is 127/76 and pulse irregular. LUNGS: Clear. CARDIAC: Irregularly irregular. ABDOMEN: Distended with ascites. EXTREMITIES: There is only moderate edema. PERTINENT LABORATORY: The INR yesterday was 2.5, which is relatively high on Xarelto, especially that was almost 24 hours after a dose. His creatinine is 1.15. Sodium 131, CO2 is only slightly better at 35. Bilirubin 3.3, better than it was, it was 5.7. ASSESSMENT: 1. Diastolic heart failure related to atrial fibrillation. Also, probably untreated sleep apnea. 2. The patient looks cachectic. 3. Pulmonary hypertension. 4. Metabolic alkalosis, secondary to diuretics, slightly better. 5. Hypokalemia. 6. Hepatic insufficiency. PLAN: 1. It is really unclear at this time the best way to anticoagulate this gentleman. Coumadin will be completely unreliable. The Lovenox is not an option long-term. Also, reluctant to completely stop anticoagulants. I think the best thing to do at this point is to skip a dose of anticoagulation today and then cut the Xarelto to 10 mg a day. If there is any bleeding, then stop the Xarelto. 2. He is not on any loop diuretics now, he is only on Diamox and spironolactone. 3. Give him some extra potassium today. Long-term prognosis obviously is poor. I will be off the next few days. My partners will be seeing the patient. Job ID: [id number] [facility]
[2018-03-30] MEDS: HumaLOG 300 UNITS/3 ML VIAL SC PRN ×2 (12:14→16:47)
[2018-03-30] MEDS ORDERED: Potassium Chloride 20 MEQ TAB PO SCH (12:30)
[2018-03-30 12:33] VITALS: BMI 34.3
[2018-03-30] MEDS: acetaZOLAMIDE Sodium 500 MG in Sodium Chloride 0.9% 50 ML IVPB SCH (13:24)
[2018-03-30] MEDS ORDERED: acetaZOLAMIDE Sodium 500 MG in Sodium Chloride 0.9% 50 ML IVPB SCH (14:00)
[2018-03-30] MEDS ORDERED: Rivaroxaban 15 MG TAB PO SCH (17:00)
--- NOTE | 2018-03-30 23:13 | CON ---
DATE OF CONSULTATION: REASON FOR CONSULTATION: Possible cirrhosis, evaluate for abnormal liver enzymes. HISTORY OF PRESENT ILLNESS: Mr. Nahun Bell is well known to me in clinic from previous evaluations in 2007 for fatty liver and for a history of intermittent colonoscopy, most recently being in 07/2017 for prior polyps. He has recently been admitted to the hospital after a fall at home after increased shortness of breath. This was on the third of this month, two days ago. He was found to have an elevated bilirubin, had a nodular liver on imaging. He also has some perihepatic ascites. He has no gallbladder. There is also pleural effusion noted. Echocardiogram noted for EF of 50% to 60%, moderately to severely right ventricle and right atrium with mild MR, aortic sclerosis, severe tricuspid regurgitation. Dr. Amaya has asked me to see him today with regard to difficulty having with diuresing him and also my opinion on liver disease. Presently, he states he cannot walk very far. He has had a little bit of peripheral edema. He does not recall any prior history of hepatitis or liver disease. PAST MEDICAL HISTORY: Diastolic dysfunction, diabetes, obesity, hypothyroidism, hypertension, atrial fibrillation, chronic anticoagulation, followup of primary pulmonary hypertension with elevated right heart pressures, this is likely related to his obstructive sleep apnea. PAST SURGICAL HISTORY: Knee replacement, cholecystectomy, thyroidectomy, angioplasties in the past, colonoscopies in the past. ALLERGIES: PENICILLIN. MEDICATIONS: At home, 1. Zofran. 2. Tylenol. 3. Tramadol. 4. Aldactone 25 mg b.i.d. 5. Xarelto 15 mg q.a.m. 6. Arimidex. 7. Zaroxolyn 5 mg p.r.n. 8. Demadex 20 p.o. q.a.m. 9. Torsemide 20 mg p.o. q.a.m. 10. Levothyroxine 2 tablets daily. 11. Insulin sliding scale. Present medications here in the hospital: 1. Tylenol. 2. Acetazolamide. 3. DuoNeb. 4. Arimidex. 5. Tessalon. 6. Dulcolax. 7. Catapres. 8. Pepcid. 9. Apresoline. 10. Insulin sliding scale. 11. Synthroid 300. 12. Imodium. 13. Zofran. 14. Florastor. 15. Senakot. 16. Tramadol. PHYSICAL EXAMINATION: VITAL SIGNS: Pulse anywhere from 100 to 111. Temperature is 98.1, T-max 100.2, blood pressure 137/87. GENERAL: He is resting in bed. He is somewhat uncomfortable. He is slightly dyspneic, but his 02 saturation is 96 today. LUNGS: Noted for rales in the bases and slight rhonchi. HEART: Regular rate and rhythm. No murmurs detected. There is significant jugular venous distention even sitting up. ABDOMEN: Protuberant. There is some slight fluid wave. The liver is slightly large and palpable. I cannot elicit a hepatojugular reflux. There is no tenderness in the abdomen. EXTREMITIES: Revealed 2+ edema. Asterixis none. NEUROLOGIC: The patient is somewhat sleepy though. LABORATORY DATA: White count is 11.1, hemoglobin is 12.6, platelet count 159, INR was 2.5. Sodium 131, potassium 4.1, chloride 89, bicarbonate 35, BUN 39, creatinine 1.5, bilirubin is 3.3, down from 5.7 on admission. AST is 43, ALT is 24, alkaline phosphatase is 219 and albumin 3.1. ASSESSMENT: 1. This is an 82-year-old gentleman who was admitted to the hospital for worsening shortness of breath and fluid overload. Some of this may be related to diastolic dysfunction, some of this may be related to right heart failure or pulmonary hypertension related to his sleep apnea and some of this is probably is related to cirrhosis. 2. He does have a history of fatty liver dating back to 2006. At that time, he had no abnormal imaging. 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 Previous evaluation today of hepatitis A, B and C, autoimmune liver disease, hemachromatosis, Kyree disease, alpha-1 anti-trypsin disease back in 2006. 3. Drop in bilirubin on this admission, this could indicate a component of passive congestion. RECOMMENDATIONS: 1. He probably is auto-anticoagulated to some degree. He may be able to get by with a lower dose of blood thinner, this would be up to his sole tacker, but I think he probably does have significant cirrhosis and hepatic synthetic dysfunction. 2. We will check an alpha-fetoprotein for hepatoma screening purposes. 3. We will check ammonia level to see if there is a component of hepatic encephalopathy or most of this is just respiratory. 4. In terms of diuresing him, it does not seem he has tolerated diuresing very well. There may be a role for using Aldactone with Lasix, although the albumin is not excessively low. We will discuss with Dr. Amaya. Job ID: [id number]
[2018-03-31] MEDS: Levothyroxine Sodium 112 MCG TAB PO SCH (05:50)
[2018-03-31] MEDS ORDERED: Metolazone 5 MG TAB PO SCH (09:00)
[2018-03-31] MEDS: Spironolactone 25 MG TAB PO SCH ×2 (09:05→20:13)
[2018-03-31] MEDS: Anastrozole 1 MG TAB PO SCH (09:05)
[2018-03-31] MEDS: Saccharomyces boulardii 250 MG CAP PO SCH (09:05)
[2018-03-31] MEDS: Insulin Glargine 20 UNITS in Pre-Filled Syringe 1 EACH SC SCH ×2 (09:06→20:14)
[2018-03-31] MEDS: Famotidine 20 MG TAB PO SCH ×2 (09:06→20:13)
[2018-03-31 10:10] LABS: INR-International Normal Ratio 1.8; PTT 51.7 SEC (22.9-36.1); Prothrombin Time 20.6 SEC (12.0-14.7)
[2018-03-31 10:13] LABS: Anion Gap 11 mmol/L (10-20); BUN (Urea Nitrogen) 36 mg/dL (8.4-25.7); Calc. Creatinine Clearance 79 mL/min (70-130); Calcium 10.2 mg/dL (7.8-10.44); Carbon Dioxide 35 mmol/L (23-31); Chloride 89 mmol/L (98-107); Estimated GFR-MDRD 62; Glucose 273 mg/dL (83-110); Potassium 3.9 mmol/L (3.5-5.1); Sodium 131 mmol/L (136-145)
--- NOTE | 2018-03-31 10:50 | PDOC.PN ---
- Subjective Encounter Start Date: 03/31/18 Encounter Start Time: 08:00 Patient seen and examined. No new complaints. No overnight events - Objective MAR Reviewed: Yes Vital Signs & Weight: Vital Signs (12 hours) Temp Pulse Resp BP Pulse Ox 03/31/18 08:00 96.2 F L 82 20 130/73 95 03/31/18 04:11 97.8 F 94 18 134/73 95 03/31/18 00:00 96.6 F L 86 17 130/70 97 Weight Admit Weight 232 lb 9 oz Weight 237 lb 8 oz I&O: 03/30/18 03/31/18 04/01/18 06:59 06:59 06:59 Intake Total 1780 510 Output Total 850 840 Balance 930 -330 Result Diagrams: 03/30/18 05:08 03/31/18 09:43 Additional Labs: Accuchecks 03/31/18 03/30/18 03/30/18 05:29 20:28 16:37 POC Glucose 244 H 293 H 290 H 03/30/18 11:24 POC Glucose 358 H EKG Reviewed by me: Yes (nsr) Phys Exam - Physical Examination Constitutional: NAD HEENT: PERRLA, moist MMs icterus+ Neck: supple, full ROM Respiratory: no wheezing, no rales, no rhonchi Cardiovascular: RRR, no rub SM+ Gastrointestinal: soft, no distention, positive bowel sounds obesity+ Musculoskeletal: pulses present, edema present Neurological: non-focal, normal sensation Lymphatic: no nodes Psychiatric: normal affect Skin: no rash, normal turgor Dx/Plan (1) Acute on chronic diastolic ACC/AHA stage C congestive heart failure Code(s): I50.33 - ACUTE ON CHRONIC DIASTOLIC (CONGESTIVE) HEART FAILURE Status : Acute (2) Acute respiratory failure with hypoxia Code(s): J96.01 - ACUTE RESPIRATORY FAILURE WITH HYPOXIA Status: Acute (3) Community acquired bacterial pneumonia Code(s): J15.9 - UNSPECIFIED BACTERIAL PNEUMONIA Status: Ruled-out (4) Demand ischemia Code(s): I24.8 - OTHER FORMS OF ACUTE ISCHEMIC HEART DISEASE Status: Acute (5) Hypokalemia Code(s): E87.6 - HYPOKALEMIA Status: Acute (6) Hyponatremia Code(s): E87.1 - HYPO-OSMOLALITY AND HYPONATREMIA Status: Acute (7) Sepsis with acute organ dysfunction Code(s): A41.9 - SEPSIS, UNSPECIFIED ORGANISM; R65.20 - SEVERE SEPSIS WITHOUT SEPTIC SHOCK Status: Ruled-out (8) Chronic a-fib Code(s): I48.2 - CHRONIC ATRIAL FIBRILLATION Status: Chronic Comment: rate controlled, on Xarelto (9) Chronic anticoagulation Code(s): Z79.01 - LONGTERM (CURRENT) USE OF ANTICOAGULANTS Status: Chronic (10) DM2 (diabetes mellitus, type 2) Status: Chronic Qualifiers: Diabetes mellitus [facility] insulin use: with [facility] use Diabetes mellitus complication status: with circulatory complication Diabetes mellitus complication detail: with other circulatory complications Qualified Code(s): E11.59 - Type 2 diabetes mellitus with other circulatory complications; Z79.4 - computer terminal operator (current) use of insulin; Z79.4 - jail (current) use of insulin; Z79.4 - jail (current) use of insulin; Z79.4 - computer terminal operator (current) use of insulin Comment: (11) HTN (hypertension) Code(s): I10 - ESSENTIAL (PRIMARY) HYPERTENSION Status: Chronic Qualifiers: Hypertension type: essential hypertension Qualified Code(s): I10 - Essential (primary) hypertension (12) History of pulmonary embolism Code(s): Z86.711 - PERSONAL HISTORY OF PULMONARY EMBOLISM Status: Chronic (13) Hypothyroidism Code(s): E03.9 - HYPOTHYROIDISM, UNSPECIFIED Status: Chronic (14) Obesity (BMI 30.0-34.9) Code(s): E66.9 - OBESITY, UNSPECIFIED Status: Chronic (15) Pulmonary hypertension Code(s): I27.20 - PULMONARY HYPERTENSION, UNSPECIFIED Status: Chronic (16) Severe tricuspid regurgitation Code(s): I07.1 - RHEUMATIC TRICUSPID INSUFFICIENCY Status: Chronic (17) Cirrhosis of liver with ascites Code(s): K74.60 - UNSPECIFIED CIRRHOSIS OF LIVER; R18.8 - OTHER ASCITES Status : Acute Comment: suspecting from cardiac etiology vs nonalcoholic cirrhosis (18) Macrocytic anemia Code(s): D53.9 - NUTRITIONAL ANEMIA, UNSPECIFIED Status: Chronic (19) LEONARDO on CPAP Code(s): G47.33 - OBSTRUCTIVE SLEEP APNEA (ADULT) (PEDIATRIC); Z99.89 - DEPENDENCE ON OTHER ENABLING MACHINES AND DEVICES Status: Chronic - Plan cont current plan of care, PT/OT, certified social workers in health care * pneumonia and sepsis has been ruled out * GI recommendation noted * now pt is doing well and he prefer to go home on discharge rather than snu/ rehab * he will need oxygen on discharge if he qualify * medication reviewed as below * symptomatic treatment * will consider discharge when all consultants are ok * add lactulose for high ammonia. Review of Systems - Review of Systems ENT: negative: Ear Pain, Ear Discharge, Nose Pain, Nose Discharge, Nose Congestion, Mouth Pain, Mouth Swelling, Throat Pain, Throat Swelling, Other Respiratory: negative: Cough, Dry, Shortness of Breath, Hemoptysis, SOB with Excertion, Pleuritic Pain, Sputum, Wheezing Cardiovascular: negative: chest pain, palpitations, orthopnea, paroxysmal nocturnal dyspnea, edema, light headedness, other Gastrointestinal: negative: Nausea, Vomiting, Abdominal Pain, Diarrhea, Constipation, Melena, Hematochezia, Other Genitourinary: negative: Dysuria, Frequency, Incontinence, Hematuria, Retention , Other Musculoskeletal: negative: Neck Pain, Shoulder Pain, Arm Pain, Back Pain, Hand Pain, Leg Pain, Foot Pain, Other Skin: negative: Rash, Lesions, Farzad, Bruising, Other - Medications/Allergies Allergies/Adverse Reactions: Allergies Allergy/AdvReac Type Severity Reaction Status Date / Time Penicillins Allergy Hives Verified 11/04/14 13:06 Medications: Current Medications Acetaminophen (Tylenol) 500 mg PO Q6H PRN PRN Reason: Mild Pain (1-3) Albuterol/Ipratropium (Duoneb) 3 ml NEB [id number] PRN PRN Reason: SOB &/or Wheezing Anastrozole (Arimidex) 1 mg PO DAILY [facility] Last Admin: 03/31/18 09:05 Dose: 1 mg Benzonatate (Tessalon) 100 mg PO Q6H PRN PRN Reason: Cough Bisacodyl (Dulcolax) 10 mg PO DAILYPRN PRN PRN Reason: Constipation Clonidine (Catapres) 0.1 mg PO Q4H PRN PRN Reason: SBP > 160____ Last Admin: 03/27/18 14:07 Dose: 0.1 mg Dextrose/Water (Dextrose 50%) 25 gm SLOW IVP PRN PRN PRN Reason: Hypoglycemia Famotidine (Pepcid) 20 mg PO BID [facility] Last Admin: 03/31/18 09:06 Dose: 20 mg Glucagon (Glucagon) 1 mg IM PRN PRN PRN Reason: Hypoglycemia Hydralazine HCl (Apresoline) 10 mg SLOW IVP Q4H PRN PRN Reason: SBP > 180 and HR < 70 Last Admin: 03/30/18 12:12 Dose: 10 mg Dextrose/Water (D5w) 1,000 mls @ 0 mls/hr IV .Q0M PRN PRN Reason: Hypoglycemia Insulin Glargine 20 units/ (Miscellaneous Medication) 0.2 mls @ 0 mls/hr SC HS [facility] Last Admin: 03/30/18 21:54 Dose: 0.2 mls Insulin Glargine 20 units/ (Miscellaneous Medication) 0.2 mls @ 0 mls/hr SC QAM [facility] Last Admin: 03/31/18 09:06 Dose: 0.2 mls Acetazolamide Sodium 500 mg/ (Sodium Chloride) 50 mls @ 100 mls/hr IVPB 1400 [facility] Stop: 04/01/18 06:00 Last Admin: 03/30/18 13:24 Dose: 50 mls Insulin Human Lispro (Humalog) 0 units SC .AGGRESSIVE SLIDING PRN PRN Reason: Aggressive Correctional Scale Last Admin: 03/30/18 16:47 Dose: 9 unit Insulin Human Lispro (Humalog) 0 units SC .BEDTIME SLIDING SC PRN PRN Reason: Bedtime Correctional Scale Last Admin: 03/29/18 21:19 Dose: 5 unit Lactulose (Lactulose) 20 gm PO NOW [facility] Stop: 03/31/18 12:45 Lactulose (Lactulose) 20 gm PO BID [facility] Levothyroxine Sodium (Synthroid) 112 mcg PO 0600 [facility] Last Admin: 03/31/18 05:50 Dose: 112 mcg Loperamide HCl (Imodium) 2 mg PO PRN PRN PRN Reason: Diarrhea/Loose Stools Nitroglycerin (Nitrostat) 0.4 mg SL Q5MIN PRN PRN Reason: Chest Pain Ondansetron HCl (Zofran Odt) 4 mg PO Q6H PRN PRN Reason: Nausea/Vomiting Ondansetron HCl (Zofran) 4 mg IVP Q6H PRN PRN Reason: Nausea/Vomiting Saccharomyces Boulardii (Florastor) 250 mg PO DAILY [facility] Last Admin: 03/31/18 09:05 Dose: 250 mg Senna/Docusate Sodium (Senokot S) 2 tab PO BID PRN PRN Reason: Constipation Sodium Chloride ([place] Nasal [place] 0.65%) 0 ml EA NARE QIDPRN PRN PRN Reason: Nasal Congestion Sodium Chloride (Flush - Normal Saline) 10 ml IVF Q12HR [facility] Last Admin: 03/31/18 09:06 Dose: 10 ml Sodium Chloride (Flush - Normal Saline) 10 ml IVF PRN PRN PRN Reason: Saline Flush Last Admin: 03/29/18 04:36 Dose: 10 ml Spironolactone (Aldactone) 25 mg PO BID [facility] Last Admin: 03/31/18 09:05 Dose: 25 mg Throat Lozenges (Cepastat Lozenges) 1 garth PO Q2H PRN PRN Reason: Sore Throat Tramadol HCl (Ultram) 50 mg PO Q6HR PRN PRN Reason: pain 4-6
[2018-03-31] MEDS: HumaLOG 300 UNITS/3 ML VIAL SC PRN ×2 (13:08→17:44)
[2018-03-31] MEDS: acetaZOLAMIDE Sodium 500 MG in Sodium Chloride 0.9% 50 ML IVPB SCH (13:42)
--- NOTE | 2018-03-31 13:56 | PRG ---
DATE OF SERVICE: 03/31/2018 SUBJECTIVE: Nahun Bell is sitting in the bedside chair, eating lunch. He says he is feeling much better. Intake and outputs, negative 330. OBJECTIVE: LUNGS: Clear. HEART: Regular rhythm. He has grade 2/6 systolic murmur. ABDOMEN: Soft, very protuberant. EXTREMITIES: Unchanged. NEURO: Grossly nonfocal. LABORATORY DATA: Sodium 131, potassium 3.9, chloride 89, bicarbonate 35, BUN 36, creatinine 1.13. IMPRESSION: 1. Diastolic heart failure. 2. Pulmonary hypertension secondary to diastolic heart failure. 3. Sleep apnea. 4. Cirrhosis. 5. History of fatty liver in the distant past. Dr. Palacio' inputs appreciated. 6. He appears to be clinically stable. 7. With regard to his anticoagulation, his INR is still 1.8. 8. I will continue to monitor his serial pro times and if he drifts down to a normal INR, then restart his anticoagulation. Job ID: [id number]
[2018-03-31] MEDS ORDERED: Rivaroxaban 15 MG TAB PO SCH (17:00)
[2018-03-31] MEDS: Rifaximin 550 MG TAB PO SCH (20:13)
[2018-04-01] MEDS: Levothyroxine Sodium 112 MCG TAB PO SCH (05:43)
[2018-04-01 06:15] LABS: INR-International Normal Ratio 1.4; PTT 32.7 SEC (22.9-36.1)
[2018-04-01 06:35] LABS: Anion Gap 13 mmol/L (10-20); BUN (Urea Nitrogen) 25 mg/dL (8.4-25.7); Calc. Creatinine Clearance 108 mL/min (70-130); Calcium 10.6 mg/dL (7.8-10.44); Carbon Dioxide 30 mmol/L (23-31); Chloride 94 mmol/L (98-107); Estimated GFR-MDRD 89; Glucose 122 mg/dL (83-110); Potassium 4.2 mmol/L (3.5-5.1); Sodium 133 mmol/L (136-145)
[2018-04-01] MEDS: Anastrozole 1 MG TAB PO SCH (09:38)
[2018-04-01] MEDS: Saccharomyces boulardii 250 MG CAP PO SCH (09:38)
[2018-04-01] MEDS: Famotidine 20 MG TAB PO SCH ×2 (09:38→22:11)
[2018-04-01] MEDS: Rifaximin 550 MG TAB PO SCH ×2 (09:38→22:12)
[2018-04-01] MEDS: Spironolactone 25 MG TAB PO SCH ×2 (09:38→22:13)
[2018-04-01] MEDS: Insulin Glargine 20 UNITS in Pre-Filled Syringe 1 EACH SC SCH ×2 (09:39→22:11)
--- NOTE | 2018-04-01 10:24 | PDOC.PN ---
- Subjective Encounter Start Date: 04/01/18 Encounter Start Time: 07:30 Patient seen and examined. No new complaints. No overnight events this morning he is somnolent but arousable - Objective MAR Reviewed: Yes Vital Signs & Weight: Vital Signs (12 hours) Temp Pulse Resp BP BP BP Pulse Ox 04/01/18 07:30 97.7 F 73 16 123/68 93 L 04/01/18 04:09 98.3 F 77 16 120/62 94 L 04/01/18 00:00 98.2 F 86 18 128/64 95 Weight Admit Weight 232 lb 9 oz Weight 236 lb 1.6 oz I&O: 03/31/18 04/01/18 04/02/18 06:59 06:59 06:59 Intake Total 510 1900 Output Total 840 4025 Balance -330 -2116 Result Diagrams: 03/30/18 05:08 04/01/18 05:38 Additional Labs: Accuchecks 04/01/18 03/31/18 03/31/18 06:03 20:14 16:34 POC Glucose 129 H 216 H 321 H EKG Reviewed by me: Yes Phys Exam - Physical Examination Constitutional: NAD HEENT: PERRLA, moist MMs, sclera anicteric Neck: supple JVD+ Respiratory: no wheezing, no rales, no rhonchi Cardiovascular: no significant murmur, irregular Gastrointestinal: soft, no distention, positive bowel sounds obesity+ Musculoskeletal: no edema, pulses present Neurological: non-focal, normal sensation Lymphatic: no nodes Psychiatric: normal affect Skin: no rash, normal turgor Dx/Plan (1) Acute on chronic diastolic ACC/AHA stage C congestive heart failure Code(s): I50.33 - ACUTE ON CHRONIC DIASTOLIC (CONGESTIVE) HEART FAILURE Status : Acute (2) Acute respiratory failure with hypoxia Code(s): J96.01 - ACUTE RESPIRATORY FAILURE WITH HYPOXIA Status: Acute (3) Community acquired bacterial pneumonia Code(s): J15.9 - UNSPECIFIED BACTERIAL PNEUMONIA Status: Ruled-out (4) Demand ischemia Code(s): I24.8 - OTHER FORMS OF ACUTE ISCHEMIC HEART DISEASE Status: Acute (5) Hypokalemia Code(s): E87.6 - HYPOKALEMIA Status: Acute (6) Hyponatremia Code(s): E87.1 - HYPO-OSMOLALITY AND HYPONATREMIA Status: Acute (7) Sepsis with acute organ dysfunction Code(s): A41.9 - SEPSIS, UNSPECIFIED ORGANISM; R65.20 - SEVERE SEPSIS WITHOUT SEPTIC SHOCK Status: Ruled-out (8) Chronic a-fib Code(s): I48.2 - CHRONIC ATRIAL FIBRILLATION Status: Chronic Comment: rate controlled, on Xarelto (9) Chronic anticoagulation Code(s): Z79.01 - FLEXOGRAPHIC PRESS OPERATOR (CURRENT) USE OF ANTICOAGULANTS Status: Chronic (10) DM2 (diabetes mellitus, type 2) Status: Chronic Qualifiers: Diabetes mellitus custodial insulin use: with custodial use Diabetes mellitus complication status: with circulatory complication Diabetes mellitus complication detail: with other circulatory complications Qualified Code(s): E11.59 - Type 2 diabetes mellitus with other circulatory complications; Z79.4 - intermediate manager (current) use of insulin; Z79.4 - group home (current) use of insulin; Z79.4 - group home (current) use of insulin; Z79.4 - intermediate manager (current) use of insulin Comment: (11) HTN (hypertension) Code(s): I10 - ESSENTIAL (PRIMARY) HYPERTENSION Status: Chronic Qualifiers: Hypertension type: essential hypertension Qualified Code(s): I10 - Essential (primary) hypertension (12) History of pulmonary embolism Code(s): Z86.711 - PERSONAL HISTORY OF PULMONARY EMBOLISM Status: Chronic (13) Hypothyroidism Code(s): E03.9 - HYPOTHYROIDISM, UNSPECIFIED Status: Chronic (14) Obesity (BMI 30.0-34.9) Code(s): E66.9 - OBESITY, UNSPECIFIED Status: Chronic (15) Pulmonary hypertension Code(s): I27.20 - PULMONARY HYPERTENSION, UNSPECIFIED Status: Chronic (16) Severe tricuspid regurgitation Code(s): I07.1 - RHEUMATIC TRICUSPID INSUFFICIENCY Status: Chronic - Plan cont current plan of care, PT/OT * will ask GI if diagnostic paracentesis needed or not to differentiate cardiac vs liver cause of his cirrhosis * medication reviewed as below * symptomatic treatment * continue lactulose and rifaximin for high ammonia * will repeat labs tomorrow * will consider discharge when all middleware consultant clears. Review of Systems - Review of Systems ENT: negative: Ear Pain, Ear Discharge, Nose Pain, Nose Discharge, Nose Congestion, Mouth Pain, Mouth Swelling, Throat Pain, Throat Swelling, Other Respiratory: negative: Cough, Dry, Shortness of Breath, Hemoptysis, SOB with Excertion, Pleuritic Pain, Sputum, Wheezing Cardiovascular: negative: chest pain, palpitations, orthopnea, paroxysmal nocturnal dyspnea, edema, light headedness, other Gastrointestinal: negative: Nausea, Vomiting, Abdominal Pain, Diarrhea, Constipation, Melena, Hematochezia, Other Genitourinary: negative: Dysuria, Frequency, Incontinence, Hematuria, Retention , Other Musculoskeletal: negative: Neck Pain, Shoulder Pain, Arm Pain, Back Pain, Hand Pain, Leg Pain, Foot Pain, Other - Medications/Allergies Allergies/Adverse Reactions: Allergies Allergy/AdvReac Type Severity Reaction Status Date / Time Penicillins Allergy Hives Verified 11/04/14 13:06 Medications: Current Medications Acetaminophen (Tylenol) 500 mg PO Q6H PRN PRN Reason: Mild Pain (1-3) Albuterol/Ipratropium (Duoneb) 3 ml NEB [id number] PRN PRN Reason: SOB &/or Wheezing Anastrozole (Arimidex) 1 mg PO DAILY [facility] Last Admin: 04/01/18 09:38 Dose: 1 mg Benzonatate (Tessalon) 100 mg PO Q6H PRN PRN Reason: Cough Bisacodyl (Dulcolax) 10 mg PO DAILYPRN PRN PRN Reason: Constipation Clonidine (Catapres) 0.1 mg PO Q4H PRN PRN Reason: SBP > 160____ Last Admin: 03/27/18 14:07 Dose: 0.1 mg Dextrose/Water (Dextrose 50%) 25 gm SLOW IVP PRN PRN PRN Reason: Hypoglycemia Famotidine (Pepcid) 20 mg PO BID [facility] Last Admin: 04/01/18 09:38 Dose: 20 mg Glucagon (Glucagon) 1 mg IM PRN PRN PRN Reason: Hypoglycemia Hydralazine HCl (Apresoline) 10 mg SLOW IVP Q4H PRN PRN Reason: SBP > 180 and HR < 70 Last Admin: 03/30/18 12:12 Dose: 10 mg Dextrose/Water (D5w) 1,000 mls @ 0 mls/hr IV .Q0M PRN PRN Reason: Hypoglycemia Insulin Glargine 20 units/ (Miscellaneous Medication) 0.2 mls @ 0 mls/hr SC HS [facility] Last Admin: 03/31/18 20:14 Dose: 0.2 mls Insulin Glargine 20 units/ (Miscellaneous Medication) 0.2 mls @ 0 mls/hr SC QAM [facility] Last Admin: 04/01/18 09:39 Dose: 0.2 mls Insulin Human Lispro (Humalog) 0 units SC .AGGRESSIVE SLIDING PRN PRN Reason: Aggressive Correctional Scale Last Admin: 03/31/18 17:44 Dose: 11 unit Insulin Human Lispro (Humalog) 0 units SC .BEDTIME SLIDING SC PRN PRN Reason: Bedtime Correctional Scale Last Admin: 03/29/18 21:19 Dose: 5 unit Lactulose (Lactulose) 20 gm PO BID [facility] Last Admin: 04/01/18 09:38 Dose: 20 gm Levothyroxine Sodium (Synthroid) 112 mcg PO 0600 [facility] Last Admin: 04/01/18 05:43 Dose: 112 mcg Loperamide HCl (Imodium) 2 mg PO PRN PRN PRN Reason: Diarrhea/Loose Stools Nitroglycerin (Nitrostat) 0.4 mg SL Q5MIN PRN PRN Reason: Chest Pain Ondansetron HCl (Zofran Odt) 4 mg PO Q6H PRN PRN Reason: Nausea/Vomiting Ondansetron HCl (Zofran) 4 mg IVP Q6H PRN PRN Reason: Nausea/Vomiting Rifaximin (Xifaxan) 550 mg PO BID [facility] Last Admin: 04/01/18 09:38 Dose: 550 mg Saccharomyces Boulardii (Florastor) 250 mg PO DAILY [facility] Last Admin: 04/01/18 09:38 Dose: 250 mg Senna/Docusate Sodium (Senokot S) 2 tab PO BID PRN PRN Reason: Constipation Sodium Chloride ([place] Nasal [place] 0.65%) 0 ml EA NARE QIDPRN PRN PRN Reason: Nasal Congestion Sodium Chloride (Flush - Normal Saline) 10 ml IVF Q12HR [facility] Last Admin: 04/01/18 09:39 Dose: 10 ml Sodium Chloride (Flush - Normal Saline) 10 ml IVF PRN PRN PRN Reason: Saline Flush Last Admin: 03/31/18 13:43 Dose: 10 ml Spironolactone (Aldactone) 25 mg PO BID [facility] Last Admin: 04/01/18 09:38 Dose: 25 mg Throat Lozenges (Cepastat Lozenges) 1 garth PO Q2H PRN PRN Reason: Sore Throat Tramadol HCl (Ultram) 50 mg PO Q6HR PRN PRN Reason: pain 4-6
--- NOTE | 2018-04-01 13:01 | PDOC.CTH ---
<Alexandrea Llamas - Last Filed: 04/01/18 17:22> Cardiology Progress Note - Subjective The pt seen and examined. No overnight events. No cardiac complaints. However , he was confused today. - Objective Vital Signs Temp Pulse Resp BP BP Pulse Ox 04/01/18 11:46 97.5 F L 87 16 123/65 94 L 04/01/18 07:30 97.7 F 73 16 123/68 93 L 04/01/18 04:09 98.3 F 77 16 120/62 94 L Admit Weight 232 lb 9 oz Weight 236 lb 1.6 oz 03/31/18 04/01/18 04/02/18 06:59 06:59 06:59 Intake Total 510 1900 Output Total 840 4025 Balance -330 -2125 - Physical Examination General/Neuro: alert & oriented x3 Neck: no JVD present Lungs: other: (diminished at bases) Heart: other: Abdomen: soft Extremities: other: Other PE findings: No edema - Telemetry Telemetry Rhythm: Afib 80s - Labs Result Diagrams: 03/30/18 05:08 04/01/18 05:38 Troponin/CKMB CK-MB (CK-2) 1.4 ng/mL (0-6.6) 03/27/18 01:49 Troponin I 0.039 ng/mL (< 0.028) H 03/27/18 08:02 - Assessment/Plan 1. Acute on chronic diastolic HF - stable with Spironolactone 25mg BID; Will start Lisinopril 10mg qd; Not on BBlocker 2/2 hx of COPD. 2. Afib - Well controlled HR; Not on BBlocker or anti- arrhythmia medication. Start Xarelto 5mg qd. INR today was 1.4. 3. Pulm.HTN 2/2 chronic diastolic HF - stable with 1LNC; managed by pipe jeeper 4. Hepatic insufficiency with Cirrohsis - Managed by PCP 5. DM type 2 - managed by PCP 6. Hyponatremia- slightly improving 7. LEONARDO - 8. Hypothyrodism - managed by PCP 9. Hx of PE - Resume Xarelto with 5mg qd 10. COPD - stable MAR reviewed Review of Systems - Review of Systems Constitutional: reports: no symptoms reported EENTM: reports: no symptoms reported Respiratory: reports: no symptoms reported Cardiac (ROS): reports: no symptoms reported ABD/GI: reports: no symptoms reported : reports: no symptoms reported <Nasim Sean - Last Filed: 04/01/18 18:03> Cardiology Progress Note - Objective Vital Signs Temp Pulse Resp BP Pulse Ox 04/01/18 16:00 97.6 F 70 18 138/64 94 L 04/01/18 11:46 97.5 F L 87 16 123/65 94 L 04/01/18 07:30 97.7 F 73 16 123/68 93 L Admit Weight 232 lb 9 oz Weight 236 lb 1.6 oz 03/31/18 04/01/18 04/02/18 06:59 06:59 06:59 Intake Total 510 1900 240 Output Total 840 4025 Balance -330 -2129 240 - Labs Result Diagrams: 03/30/18 05:08 04/01/18 05:38 Troponin/CKMB CK-MB (CK-2) 1.4 ng/mL (0-6.6) 03/27/18 01:49 Troponin I 0.039 ng/mL (< 0.028) H 03/27/18 08:02 - Assessment/Plan Pt. seen and eval. by me. I agree with the A/P by the FOSTER WINDER. We have discussed the pt as well as the A/PO. Chest clear. Irrreg/irreg.
--- NOTE | 2018-04-01 13:02 | EKG ---
Test Reason : Blood Pressure : / mmHG Vent. Rate : 115 BPM Atrial Rate : 117 BPM P-R Int : 000 ms QRS Dur : 108 ms QT Int : 344 ms P-R-T Axes : 000 -50 112 degrees QTc Int : 475 ms Atrial fibrillation with rapid ventricular response Left axis deviation Low voltage QRS Inferior infarct , age undetermined Cannot rule out Anterior infarct , age undetermined Abnormal ECG Confirmed by TRISHA WEBB ([id number]), medical transcription editor WICHO ZELAYA ([id number]) on 04/01/2018 1:02:19 PM Referred By: Confirmed By:TRISHA WEBB
--- NOTE | 2018-04-01 13:47 | PRG ---
DATE OF SERVICE: 04/01/2018 TYPE OF REPORT: GI inpatient daily progress note SUBJECTIVE: I am meeting Mr. Bell for the first time today, covering for Dr. Palacio. The patient's family feels he is much more alert today than he was yesterday, and also that his urine appears to be clearing up. The patient denies any current shortness of breath. He denies any abdominal pain. He is oriented to person and place, and can answer questions regarding his symptoms. OBJECTIVE: VITAL SIGNS: Temperature 97.7, pulse 73, blood pressure 123/68, and 93% oxygen saturation on 2 L nasal cannula. GENERAL: An 82-year-old male lying in bed comfortably, in no distress. HEART: Regular rate and rhythm. LUNGS: Bibasilar crackles. No respiratory distress. ABDOMEN: [id number] distention with ascites. Bowel sounds are present. Soft, nontender to palpation throughout. EXTREMITIES: 1+ bilateral lower extremity edema. LABORATORY DATA: Sodium 133, potassium 4.2, BUN 25, creatinine 0.83, glucose 168. AFP is negative, less than 2. Calcium 10.6. INR 1.4 today. WBC 11.1, hemoglobin 12.6, platelets 159. ASSESSMENT AND PLAN: 1. Cirrhosis, appears secondary to fatty liver disease plus probable hepatic congestion from right-sided heart failure. 2. Right-sided heart failure. 3. Ascites. 4. Continue with diuretics as tolerated. Note his renal function is looking pretty good today. 5. He is on spironolactone 25 mg b.i.d., consider adding furosemide. 6. Hepatic encephalopathy. The patient's family says his mental status is much better today. Continue with lactulose 20 g b.i.d., as well as rifaximin 550 mg p.o., b.i.d. Ideally, he will be able to be discharged on both lactulose and rifaximin, but sometimes the rifaximin is cost prohibitive, lactulose in that case should be titrated to 2 to 3 loose bowel movements per day. I do not think diagnostic paracentesis is really necessary at this point. From a GI standpoint, the patient can be discharged from the hospital and can follow up with Dr. Palacio. Please call anytime with questions or concerns. Job ID: [id number]
[2018-04-01] MEDS: HumaLOG 300 UNITS/3 ML VIAL SC PRN (18:33)
[2018-04-01] MEDS: Lisinopril 10 MG TAB PO SCH (22:12)
--- NOTE | 2018-04-01 23:01 | PRG ---
DATE OF SERVICE: 04/01/2018 SERVICE: Pulmonary Medicine. INTERVAL HISTORY: The patient is doing okay from a respiratory standpoint. He has been weaned down to room air. He has now absolutely no complaints of fevers, chills, nausea, or vomiting. There has been no interval change to his condition. PHYSICAL EXAMINATION: VITAL SIGNS: Afebrile, pulse 70, blood pressure 138/64, respirations 18, and saturation 94% on room air. GENERAL: The patient is awake, alert, in no apparent distress. LUNGS: Decent air entry. Dependent crackles are present. HEART: Normal rate, regular. ABDOMEN: Soft, nontender, and nondistended. Bowel sounds are positive. MUSCULOSKELETAL: No cyanosis or clubbing. There are chronic stasis changes in the bilateral lower extremities and signs of recent lower extremity swelling that is improved. There is still trace to 1+ pitting. : No Seay. NEUROLOGIC: Grossly nonfocal. LABORATORY DATA: WBC 11.1, hemoglobin 12.6, and platelets 159,000. Band count is 45% on top of 42% neutrophils. INR 1.4. Basic metabolic profile is essentially unremarkable except for a calcium of 10.6, which has been uptrending recently. AFP is below the assay limit of 2. Blood sugars range from 129 to 258. ASSESSMENT: 1. Acute hypoxic respiratory failure, resolved. 2. Acute on chronic diastolic heart failure. 3. 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 4. Obstructive sleep apnea. 5. Cirrhosis. PLAN: The patient has been diuresed and is now approaching euvolemia. He has been weaned down to essentially room air at this point and he is breathing comfortably. Supportive measures will be continued. Pulmonary Critical Care will continue to follow along for the time being. Job ID: [id number] [facility]
[2018-04-02 04:02] LABS: #Basophils 0.1 thou/uL (0.0-0.2); #Eosinphils 0.6 thou/uL (0.0-0.7); #Lymphocytes 1.2 thou/uL (1.20-3.40); #Monocytes 0.4 thou/uL (0.11-0.59); #Neutrophils 3.8 thou/uL (1.40-6.50); %Eosinophils 10.5 % (0.0-10.0); %Lymphocytes 19.2 % (21.0-51.0); %Monocytes 6.7 % (0.0-10.0); %Neutrophils 62.6 % (42.0-75.0); Hemoglobin 14.5 g/dL (14.0-18.0); Mean Corpuscular HGB CONC 32.2 g/dL (32.0-36.0); Mean Corpuscular Hemoglobin 32.3 pg (27.0-31.0); Mean Platelet Volume 7.9 fL (7.4-10.4); Platelet Count 241 thou/uL (130-400); Red Blood Cell (RBC) Count 4.48 mill/uL (4.70-6.10); White Blood Cell (WBC) Count 6.1 thou/uL (4.8-10.8)
[2018-04-02 04:05] LABS: INR-International Normal Ratio 1.4; Prothrombin Time 17.2 SEC (12.0-14.7)
[2018-04-02 04:06] LABS: PTT 46.9 SEC (22.9-36.1)
[2018-04-02] MEDS: Levothyroxine Sodium 112 MCG TAB PO SCH (06:42)
[2018-04-02 07:37] LABS: Calcium 10.4 mg/dL (7.8-10.44); Chloride 98 mmol/L (98-107); Potassium 4.4 mmol/L (3.5-5.1); Sodium 135 mmol/L (136-145)
[2018-04-02 07:38] LABS: Globulin 4.6 g/dL (2.4-3.5); Glucose 145 mg/dL (83-110); Protein, Total 7.6 g/dL (5.8-8.1)
[2018-04-02 07:39] LABS: Anion Gap 12 mmol/L (10-20); Carbon Dioxide 29 mmol/L (23-31)
[2018-04-02 07:40] LABS: Bilirubin, Total 2.3 mg/dL (0.2-1.2)
[2018-04-02 07:41] LABS: Alkaline Phosphatase 378 U/L (40-150); Calc. Creatinine Clearance 105 mL/min (70-130); Estimated GFR-MDRD Greater than 90
[2018-04-02 07:42] LABS: BUN (Urea Nitrogen) 20 mg/dL (8.4-25.7)
[2018-04-02 07:43] LABS: AST (SGOT) 39 U/L (5-34)
[2018-04-02 07:44] LABS: ALT (SGPT) 29 U/L (8-55)
[2018-04-02] MEDS ORDERED: Rivaroxaban 10 MG TAB PO SCH (09:00)
--- NOTE | 2018-04-02 09:26 | PDOC.PN ---
- Subjective Encounter Start Date: 04/02/18 Encounter Start Time: 09:00 -: old records requested/rev Patient seen and examined. No new complaints. No overnight events - Objective MAR Reviewed: Yes Vital Signs & Weight: Vital Signs (12 hours) Temp Pulse Resp BP BP Pulse Ox 04/02/18 07:45 98.3 F 67 18 136/76 95 04/02/18 04:00 98 F 71 18 136/77 96 04/01/18 22:12 182/101 H Weight Admit Weight 232 lb 9 oz Weight 225 lb 3.2 oz I&O: 04/01/18 04/02/18 04/03/18 06:59 06:59 06:59 Intake Total 1900 970 Output Total 4025 1975 Balance -2125 -1005 Result Diagrams: 04/02/18 03:44 04/02/18 06:43 Additional Labs: Accuchecks 04/02/18 04/01/18 04/01/18 05:35 20:42 16:44 POC Glucose 160 H 204 H 258 H 04/01/18 10:46 POC Glucose 168 H EKG Reviewed by me: Yes Phys Exam - Physical Examination Constitutional: NAD HEENT: PERRLA, moist MMs, sclera anicteric Neck: no JVD, supple Respiratory: no wheezing, no rales, no rhonchi Cardiovascular: no rub, irregular sm+ Gastrointestinal: soft, non-tender, no distention Musculoskeletal: no edema, pulses present Neurological: non-focal, normal sensation Psychiatric: normal affect, A&O x 3 Skin: no rash, normal turgor Dx/Plan (1) Acute on chronic diastolic ACC/AHA stage C congestive heart failure Code(s): I50.33 - ACUTE ON CHRONIC DIASTOLIC (CONGESTIVE) HEART FAILURE Status : Acute (2) Acute respiratory failure with hypoxia Code(s): J96.01 - ACUTE RESPIRATORY FAILURE WITH HYPOXIA Status: Acute (3) Community acquired bacterial pneumonia Code(s): J15.9 - UNSPECIFIED BACTERIAL PNEUMONIA Status: Ruled-out (4) Demand ischemia Code(s): I24.8 - OTHER FORMS OF ACUTE ISCHEMIC HEART DISEASE Status: Acute (5) Hypokalemia Code(s): E87.6 - HYPOKALEMIA Status: Acute (6) Hyponatremia Code(s): E87.1 - HYPO-OSMOLALITY AND HYPONATREMIA Status: Acute (7) Sepsis with acute organ dysfunction Code(s): A41.9 - SEPSIS, UNSPECIFIED ORGANISM; R65.20 - SEVERE SEPSIS WITHOUT SEPTIC SHOCK Status: Ruled-out (8) Chronic a-fib Code(s): I48.2 - CHRONIC ATRIAL FIBRILLATION Status: Chronic Comment: rate controlled, on Xarelto (9) Chronic anticoagulation Code(s): Z79.01 - SENIOR CARE (CURRENT) USE OF ANTICOAGULANTS Status: Chronic (10) DM2 (diabetes mellitus, type 2) Status: Chronic Qualifiers: Diabetes mellitus termite exterminator helper insulin use: with shelter use Diabetes mellitus complication status: with circulatory complication Diabetes mellitus complication detail: with other circulatory complications Qualified Code(s): E11.59 - Type 2 diabetes mellitus with other circulatory complications; Z79.4 - assisted (current) use of insulin; Z79.4 - long term (current) use of insulin; Z79.4 - long term (current) use of insulin; Z79.4 - assisted (current) use of insulin Comment: (11) HTN (hypertension) Code(s): I10 - ESSENTIAL (PRIMARY) HYPERTENSION Status: Chronic Qualifiers: Hypertension type: essential hypertension Qualified Code(s): I10 - Essential (primary) hypertension (12) History of pulmonary embolism Code(s): Z86.711 - PERSONAL HISTORY OF PULMONARY EMBOLISM Status: Chronic (13) Hypothyroidism Code(s): E03.9 - HYPOTHYROIDISM, UNSPECIFIED Status: Chronic (14) Obesity (BMI 30.0-34.9) Code(s): E66.9 - OBESITY, UNSPECIFIED Status: Chronic (15) Pulmonary hypertension Code(s): I27.20 - PULMONARY HYPERTENSION, UNSPECIFIED Status: Chronic (16) Severe tricuspid regurgitation Code(s): I07.1 - RHEUMATIC TRICUSPID INSUFFICIENCY Status: Chronic - Plan cont current plan of care, plan discussed w/ family, socially responsible investment adviser * medication reviewed as below * symptomatic treatment * see my discharge andrey. Review of Systems - Review of Systems Eyes: negative: Pain, Vision Change, Conjunctivae Inflammation, Eyelid Inflammation, Redness, Other ENT: negative: Ear Pain, Ear Discharge, Nose Pain, Nose Discharge, Nose Congestion, Mouth Pain, Mouth Swelling, Throat Pain, Throat Swelling, Other Respiratory: negative: Cough, Dry, Shortness of Breath, Hemoptysis, SOB with Excertion, Pleuritic Pain, Sputum, Wheezing Cardiovascular: negative: chest pain, palpitations, orthopnea, paroxysmal nocturnal dyspnea, edema, light headedness, other Gastrointestinal: negative: Nausea, Vomiting, Abdominal Pain, Diarrhea, Constipation, Melena, Hematochezia, Other Genitourinary: negative: Dysuria, Frequency, Incontinence, Hematuria, Retention , Other Musculoskeletal: negative: Neck Pain, Shoulder Pain, Arm Pain, Back Pain, Hand Pain, Leg Pain, Foot Pain, Other Skin: negative: Rash, Lesions, Farzad, Bruising, Other - Medications/Allergies Allergies/Adverse Reactions: Allergies Allergy/AdvReac Type Severity Reaction Status Date / Time Penicillins Allergy Hives Verified 11/04/14 13:06 Medications: Current Medications Acetaminophen (Tylenol) 500 mg PO Q6H PRN PRN Reason: Mild Pain (1-3) Albuterol/Ipratropium (Duoneb) 3 ml NEB [id number] PRN PRN Reason: SOB &/or Wheezing Anastrozole (Arimidex) 1 mg PO DAILY [facility] Last Admin: 04/01/18 09:38 Dose: 1 mg Benzonatate (Tessalon) 100 mg PO Q6H PRN PRN Reason: Cough Bisacodyl (Dulcolax) 10 mg PO DAILYPRN PRN PRN Reason: Constipation Clonidine (Catapres) 0.1 mg PO Q4H PRN PRN Reason: SBP > 160____ Last Admin: 03/27/18 14:07 Dose: 0.1 mg Dextrose/Water (Dextrose 50%) 25 gm SLOW IVP PRN PRN PRN Reason: Hypoglycemia Famotidine (Pepcid) 20 mg PO BID [facility] Last Admin: 04/01/18 22:11 Dose: Not Given Glucagon (Glucagon) 1 mg IM PRN PRN PRN Reason: Hypoglycemia Hydralazine HCl (Apresoline) 10 mg SLOW IVP Q4H PRN PRN Reason: SBP > 180 and HR < 70 Last Admin: 03/30/18 12:12 Dose: 10 mg Dextrose/Water (D5w) 1,000 mls @ 0 mls/hr IV .Q0M PRN PRN Reason: Hypoglycemia Insulin Glargine 20 units/ (Miscellaneous Medication) 0.2 mls @ 0 mls/hr SC [facility] Last Admin: 04/01/18 22:11 Dose: 0.2 mls Insulin Glargine 20 units/ (Miscellaneous Medication) 0.2 mls @ 0 mls/hr SC QAM [facility] Last Admin: 04/01/18 09:39 Dose: 0.2 mls Insulin Human Lispro (Humalog) 0 units SC .AGGRESSIVE SLIDING PRN PRN Reason: Aggressive Correctional Scale Last Admin: 04/01/18 18:33 Dose: 9 unit Insulin Human Lispro (Humalog) 0 units SC .BEDTIME SLIDING SC PRN PRN Reason: Bedtime Correctional Scale Last Admin: 03/29/18 21:19 Dose: 5 unit Lactulose (Lactulose) 20 gm PO BID [facility] Last Admin: 04/01/18 22:12 Dose: Not Given Levothyroxine Sodium (Synthroid) 112 mcg PO 0600 [facility] Last Admin: 04/02/18 06:42 Dose: Not Given Lisinopril (Zestril) 10 mg PO [facility] Last Admin: 04/01/18 22:12 Dose: Not Given Loperamide HCl (Imodium) 2 mg PO PRN PRN PRN Reason: Diarrhea/Loose Stools Nitroglycerin (Nitrostat) 0.4 mg SL Q5MIN PRN PRN Reason: Chest Pain Ondansetron HCl (Zofran Odt) 4 mg PO Q6H PRN PRN Reason: Nausea/Vomiting Ondansetron HCl (Zofran) 4 mg IVP Q6H PRN PRN Reason: Nausea/Vomiting Rifaximin (Xifaxan) 550 mg PO BID [facility] Last Admin: 04/01/18 22:12 Dose: Not Given Rivaroxaban (Xarelto) 5 mg PO DAILY [facility] Saccharomyces Boulardii (Florastor) 250 mg PO DAILY [facility] Last Admin: 04/01/18 09:38 Dose: 250 mg Senna/Docusate Sodium (Senokot S) 2 tab PO BID PRN PRN Reason: Constipation Sodium Chloride ([place] Nasal [place] 0.65%) 0 ml EA NARE QIDPRN PRN PRN Reason: Nasal Congestion Sodium Chloride (Flush - Normal Saline) 10 ml IVF Q12HR [facility] Last Admin: 04/01/18 22:12 Dose: 10 ml Sodium Chloride (Flush - Normal Saline) 10 ml IVF PRN PRN PRN Reason: Saline Flush Last Admin: 03/31/18 13:43 Dose: 10 ml Spironolactone (Aldactone) 25 mg PO BID [facility] Last Admin: 04/01/18 22:13 Dose: Not Given Throat Lozenges (Cepastat Lozenges) 1 garth PO Q2H PRN PRN Reason: Sore Throat Tramadol HCl (Ultram) 50 mg PO Q6HR PRN PRN Reason: pain 4-6
[2018-04-02] MEDS: Rifaximin 550 MG TAB PO SCH ×2 (10:18→21:47)
[2018-04-02] MEDS: Insulin Glargine 20 UNITS in Pre-Filled Syringe 1 EACH SC SCH ×2 (10:18→21:46)
[2018-04-02] MEDS: Rivaroxaban 10 MG TAB PO SCH (10:18)
[2018-04-02] MEDS: Saccharomyces boulardii 250 MG CAP PO SCH (10:18)
[2018-04-02] MEDS: Anastrozole 1 MG TAB PO SCH (10:19)
[2018-04-02] MEDS: Spironolactone 25 MG TAB PO SCH ×2 (10:19→21:46)
[2018-04-02] MEDS: Famotidine 20 MG TAB PO SCH ×2 (10:19→21:46)
--- NOTE | 2018-04-02 10:19 | DIS ---
DATE OF ADMISSION: 03/27/2018 DATE OF DISCHARGE: 04/02/2018 PRIMARY CARE PHYSICIAN: [facility] Call Admission. DISCHARGE DISPOSITION: Home with home health. PRIMARY DISCHARGE DIAGNOSES: 1. Acute on chronic diastolic stage C congestive heart failure exacerbation. 2. Acute respiratory failure with hypoxia, resolved. 3. Hyperammonemia due to cirrhosis. 4. Demand ischemia of myocardium. 5. Hyponatremia and hypokalemia, corrected. SECONDARY DISCHARGE DIAGNOSES: 1. Severe tricuspid regurgitation. 2. Pulmonary hypertension. 3. Obstructive sleep apnea, noncompliance with CPAP. 4. Obesity with BMI 32. 5. Macrocytic anemia. 6. Hypothyroidism. 7. Hypertension. 8. History of pulmonary embolism. 9. Diabetes type 2. 10. Chronic anticoagulation. 11. Chronic atrial fibrillation. 12. Nonalcoholic cirrhosis of liver. 13. Chronic diastolic congestive heart failure. PRIMARY PROCEDURE/OPERATION: None. RADIOLOGICAL INVESTIGATION: Chest x-ray on admission showed pulmonary vascular congestion, bilateral pleural effusion. Pelvis x-ray negative for any fracture or dislocation. CT brain negative for any acute intracranial process. CT angiography showed bilateral pleural effusion, atelectasis, mediastinal lymphadenopathy, cirrhosis of liver, ascites, tracheomalacia. Abdominal ultrasound showed nodular liver consistent with cirrhosis. Echocardiography showed EF 55% to 60%, atrial fibrillation, pulmonary hypertension. Repeat CT brain negative for any acute intracranial process. SIGNIFICANT LABORATORY DATA: WBC 6.1, hemoglobin 14.5, platelet 241. INR 1.4, CO2 of 66.8, bicarb 37.9, O2 of 83.4. Sodium 135, potassium 4.4, BUN 20, creatinine 0.81, calcium 10.4. Bilirubin 2.3, AST 39, ALT 29, alkaline phosphatase 378, albumin 3.0. Alpha-fetoprotein level less than 2. Urinalysis, unremarkable. DISCHARGE MEDICATIONS: 1. Tramadol 50 mg q.6 hourly p.r.n. 2. Arimidex 1 mg daily. 3. NovoLog insulin as per sliding scale. 4. Synthroid 112 mcg two tablets daily. 5. Zaroxolyn as per home dosage and as directed. 6. Aldactone 25 mg p.o. b.i.d. 7. Testosterone 200 mg intramuscularly every week. 8. Demadex 40 mg in the morning and 20 mg in the evening. 9. Lantus insulin 20 units subcu b.i.d. 10. Lactulose 20 g p.o. b.i.d. 11. Rifaximin 550 mg p.o. b.i.d. 12. Xarelto 10 mg p.o. daily. CONTRAINDICATION: None. CODE STATUS: Full code. INPATIENT SWATCH FOLDER: Dr. Amaya was following while in the hospital. Dr. Herndon was following while in the hospital. Dr. Palacio was consulted for cirrhosis. TEST RESULTS PENDING ON DISCHARGE: None. ALLERGIES: PENICILLIN. DISCHARGE PLAN: Post hospital, the patient will follow up with primary care physician, Dr. Palacio, Dr. Amaya as instructed. HOSPITAL COURSE: An 82-year-old male who was admitted by Dr. Nava. Please see her H and P for further details. The patient was brought to emergency room for increasing shortness of breath. He had chest x-ray in the emergency room, which showed bilateral pleural effusion and pulmonary vascular congestion. He also had a CT angiography which also similarly showed bilateral pleural effusion, pulmonary vascular congestion, and atelectasis versus consolidation as well as reactive mediastinal lymphadenopathy. CT angiography also showed cirrhosis of liver and ascites and that is why abdominal ultrasound was done, which showed nodular contour of liver consistent with cirrhosis of liver. Echocardiography was obtained, which showed diastolic dysfunction and severe tricuspid regurgitation and pulmonary hypertension. After admission, the patient was treated with IV Lasix. The patient was given empiric antibiotic therapy, but antibiotic therapy was discontinued when we ruled out pneumonia and sepsis. There was initial concern and suspicion, but that has completely ruled out while in the hospital. He does not have pneumonia as well as any kind of sepsis during this admission. He mainly presented with diastolic heart failure that required diuretic therapy and subsequently, the patient became euvolemic. He had initially respiratory failure with hypoxia that also improved with diuretic therapy. By the time of discharge, he was no longer requiring any oxygen therapy. While in hospital, we noted that he was intermittently getting sleepiness and lethargy and that is why we did ABG, which showed chronic respiratory acidosis with compensation. This patient is noncompliant with CPAP machine at home and he does not want to be on CPAP machine even after discharge. We checked ammonia level because of cirrhosis that was high and that is why we started lactulose and rifaximin therapy on his regimen. GI was also following while in hospital. Cardiopulmonary group was also following while in hospital. Initially, the patient was planned for discharging to rehab, but he had significant improvement and he decided now to go home with home health. Family member also agreed with this plan as well. I have seen and examined the patient bedside today. REVIEW OF SYSTEMS: Reviewed with him and negative. Plan of care discussed with the family member. PHYSICAL EXAMINATION: VITAL SIGNS: Currently, temperature 98.3, pulse 67, respiratory rate 18, saturation 95% on room air, blood pressure 136/76. Weight 225 pounds. GENERAL: The patient is currently alert, awake. No obvious acute distress. HEENT: Head; normocephalic, atraumatic. Eyes; pupils round, reactive to light. Extraocular muscle intact. ENT; oropharynx within normal limits. Moist mucous membranes. No oral lesion. No pharyngeal erythema. No exudate. NECK: Supple. No JVD. No thyromegaly. No carotid bruit. No jugular venous distention. LUNGS: Clear to auscultation without any rhonchi or rales. CARDIAC: S1 and S2 appears slightly irregular. No murmur. No gallop. No rub. ABDOMEN: Soft. Obesity present. Bowel sounds present. EXTREMITIES: No edema. No calf tenderness. NEUROLOGIC: Nonfocal examination. No asterixis. All new medication prescription sent to pharmacy. Job ID: [id number]
--- NOTE | 2018-04-02 13:32 | PDOC.CTH ---
<Alexandrea Llamas - Last Filed: 04/02/18 13:33> Cardiology Progress Note - Subjective The pt seen and examined. No overnight events. No cardiac complaints. Today, he opened his eyes and able to answer all questions. - Objective Vital Signs Temp Pulse Resp BP Pulse Ox 04/02/18 07:45 98.3 F 67 18 136/76 95 04/02/18 04:00 98 F 71 18 136/77 96 Admit Weight 232 lb 9 oz Weight 225 lb 3.2 oz 04/01/18 04/02/18 04/03/18 06:59 06:59 06:59 Intake Total 1900 970 Output Total 4025 1975 Balance -2125 -1005 - Physical Examination General/Neuro: alert & oriented x3 Neck: no JVD present Lungs: other: (diminished at bases) Heart: other: Abdomen: soft Extremities: other: (No edema) - Telemetry Telemetry Rhythm: Afib 80s - Labs Result Diagrams: 04/02/18 03:44 04/02/18 06:43 Troponin/CKMB CK-MB (CK-2) 1.4 ng/mL (0-6.6) 03/27/18 01:49 Troponin I 0.039 ng/mL (< 0.028) H 03/27/18 08:02 - Assessment/Plan 1. Acute on chronic diastolic HF - stable with Spironolactone 25mg BID; Will start Lisinopril 10mg qd; Not on BBlocker 2/2 hx of COPD. 2. Afib - Well controlled HR; Not on BBlocker or anti- arrhythmia medication. Start Xarelto 5mg qd. INR today was 1.4. 3. Pulm. HTN 2/2 chronic diastolic HF - stable with RA today; managed by automatic packer operator 4. Hepatic insufficiency with Cirrohsis - Managed by GI/PCP 5. DM type 2 - managed by PCP 6. Hyponatremia- slightly improving 7. LEONARDO - 8. Hypothyrodism - managed by PCP 9. Hx of PE - Resume Xarelto with 5mg qd 10. COPD - stable MAR reviewed Review of Systems - Review of Systems Constitutional: reports: no symptoms reported EENTM: reports: no symptoms reported Respiratory: reports: no symptoms reported Cardiac (ROS): reports: no symptoms reported ABD/GI: reports: no symptoms reported : reports: no symptoms reported <Nasim Sena - Last Filed: 04/02/18 22:18> Cardiology Progress Note - Objective Vital Signs Temp Pulse Resp BP BP Pulse Ox 04/02/18 21:46 176/78 H 04/02/18 16:00 97.9 F 64 18 157/75 H 97 04/02/18 14:09 62 18 124/65 97 Admit Weight 232 lb 9 oz Weight 225 lb 3.2 oz 04/01/18 04/02/18 04/03/18 06:59 06:59 06:59 Intake Total 1900 970 120 Output Total 4025 1975 Balance -2125 -1005 120 - Labs Result Diagrams: 04/02/18 03:44 04/02/18 06:43 Troponin/CKMB CK-MB (CK-2) 1.4 ng/mL (0-6.6) 03/27/18 01:49 Troponin I 0.039 ng/mL (< 0.028) H 03/27/18 08:02 - Assessment/Plan Pt. seen and eval. by me. I agree with the A/P by the TOWER CRANE OPERATOR.
--- NOTE | 2018-04-02 19:04 | PRG ---
DATE OF SERVICE: 04/02/2018 SERVICE: Pulmonary Medicine. INTERVAL HISTORY: The patient indicates that he is breathing comfortably. He denies any current chest pain or significant cough. He does not have any sputum production. He is sleeping awkwardly in the chair. I woke him up and he is talking in full sentences. He does not go back to sleep. I offered to get him back in the bed and he declined. OBJECTIVE: VITAL SIGNS: Afebrile, pulse 64, blood pressure 157/75, respirations 18, and saturation 97% on room air. GENERAL: The patient is awake and alert, in no apparent distress. LUNGS: Decent air entry. Crackles are present in bibasilar regions. HEART: Normal rate, regular. ABDOMEN: Soft, nontender, and nondistended. Bowel sounds are positive. MUSCULOSKELETAL: No cyanosis or clubbing. There is trace to 1+ pitting in the bilateral lower extremities. NEUROLOGIC: Grossly nonfocal. LABORATORY DATA: WBC 6.1, hemoglobin 14.5, and platelets 241,000. INR 1.4. Basic metabolic profile is essentially unremarkable with an improving sodium of 135, and liver function studies are essentially unremarkable at this point. AST is trending downward. Total bilirubin is down to 2.3. ASSESSMENT: 1. Acute hypoxic respiratory failure, resolved. 2. Chronic diastolic heart failure. 3. 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 4. Obstructive sleep apnea. 5. Cirrhosis. DISCUSSION AND PLAN: At this point, the patient is down to room air. He denies any significant dyspnea. He remains minimally volume overloaded. We can continue to diurese down to euvolemia in the outpatient setting. Pulmonary will continue to follow if he remains in-house, however. Dr. Amaya will resume care in the morning. Job ID: [id number]
--- NOTE | 2018-04-02 21:16 | PRG ---
DATE OF SERVICE: 03/31/2018 SUBJECTIVE: Mr. Bell is breathing more comfortable today, although his family states earlier, he was not. He is pretty sleepy. He is without complaints. OBJECTIVE: VITAL SIGNS: Temperature is 97.8, pulse 91, and blood pressure is 138/87. NECK: JVD is still present. LUNGS: Noted for rhonchi and rales to the bases. He is not having any distress with breathing. ABDOMEN: Slightly protuberant and slight shifting dullness. HEART: Regular rate and rhythm. EXTREMITIES: Reveal 1 to 2+ edema. LABORATORY DATA: White count is 11.1, hemoglobin 12.6, and platelet count is 159. INR today is 1.8. Sodium 131, potassium 3.9, BUN and creatinine 36 and 1.13, bicarb 35, and chloride 89. Ammonia is elevated at 74. ASSESSMENT: The patient has a component of cirrhosis related to nonalcoholic fatty liver disease since evaluation that took place about 10 years ago. Of note, the viral hepatitis is with minimal elevation of AST noted at this time, I would not really embark on re-evaluation. I think that some of his liver disease is probably exacerbated by passive congestion of liver from heart failure as his bilirubin had bumped up to 5.7, it has come down to 3.3 as of yesterday and I think his liver disease is compounded by right heart failure, probably from his sleep apnea Pickwickian syndrome with pulmonary hypertension, which does not help with hepatic function at all or his heart failure. RECOMMENDATIONS: 1. We will start Xifaxan to go along with the lactulose for his hepatic encephalopathy and see if that helps him out a little bit. The patient refused to be diuresed further, it could be done in conjunction with albumin. 2. I have really recommended the patient to start using a CPAP that may help some of his pulmonary hypertension and decrease some of his right heart failure symptoms. Diuretics can be used for the cirrhosis component of furosemide and Aldactone in the ratio of 40 mg to 100 mg respectively would be ideal to help maintain adequate and stable potassium levels and now he is on Aldactone. At this time, we will not make any changes in diuretic regimen, this is being managed well throughout this hospitalization by Cardiology and Pulmonary Services. We will continue to follow along. Job ID: [id number]
[2018-04-02] MEDS: Lisinopril 10 MG TAB PO SCH (21:46)
[2018-04-03] MEDS: Levothyroxine Sodium 112 MCG TAB PO SCH (05:35)
[2018-04-03 06:01] LABS: INR-International Normal Ratio 1.5; Prothrombin Time 17.8 SEC (12.0-14.7)
[2018-04-03 06:02] LABS: PTT 49.6 SEC (22.9-36.1)
[2018-04-03] MEDS: Rifaximin 550 MG TAB PO SCH (08:13)
[2018-04-03] MEDS: Rivaroxaban 10 MG TAB PO SCH (08:14)
[2018-04-03] MEDS: Saccharomyces boulardii 250 MG CAP PO SCH (08:14)
[2018-04-03] MEDS: Famotidine 20 MG TAB PO SCH (08:15)
[2018-04-03] MEDS: Anastrozole 1 MG TAB PO SCH (08:16)
[2018-04-03] MEDS: Insulin Glargine 20 UNITS in Pre-Filled Syringe 1 EACH SC SCH (08:16)
[2018-04-03] MEDS: Spironolactone 25 MG TAB PO SCH (08:16)
--- NOTE | 2018-04-03 09:34 | PDOC.PN ---
- Subjective Encounter Start Date: 04/03/18 Encounter Start Time: 07:35 Patient seen and examined. No new complaints. No overnight events - Objective MAR Reviewed: Yes Vital Signs & Weight: Vital Signs (12 hours) Temp Pulse Resp BP BP BP Pulse Ox 04/03/18 07:28 99.2 F 64 14 133/87 97 04/03/18 04:41 95 04/03/18 03:30 97.6 F 70 16 141/77 H 92 L 04/03/18 00:00 98.2 F 63 12 142/68 H 95 04/02/18 21:46 176/78 H Weight Admit Weight 232 lb 9 oz Weight 225 lb 3.2 oz I&O: 04/02/18 04/03/18 04/04/18 06:59 06:59 06:59 Intake Total 970 120 Output Total 1975 Balance -1005 120 Result Diagrams: 04/02/18 03:44 04/02/18 06:43 Additional Labs: Accuchecks 04/02/18 04/02/18 04/02/18 20:22 17:10 10:57 POC Glucose 245 H 170 H 228 H EKG Reviewed by me: Yes Phys Exam - Physical Examination Constitutional: NAD HEENT: PERRLA, moist MMs, sclera anicteric Neck: no JVD, supple Respiratory: no wheezing, no rales, no rhonchi Cardiovascular: no rub, irregular sm+ Gastrointestinal: soft, non-tender, no distention, positive bowel sounds obesity+ Musculoskeletal: no edema, pulses present Neurological: non-focal, normal sensation Psychiatric: normal affect Skin: no rash, normal turgor Dx/Plan (1) Acute on chronic diastolic ACC/AHA stage C congestive heart failure Code(s): I50.33 - ACUTE ON CHRONIC DIASTOLIC (CONGESTIVE) HEART FAILURE Status : Acute (2) Acute respiratory failure with hypoxia Code(s): J96.01 - ACUTE RESPIRATORY FAILURE WITH HYPOXIA Status: Acute (3) Community acquired bacterial pneumonia Code(s): J15.9 - UNSPECIFIED BACTERIAL PNEUMONIA Status: Ruled-out (4) Demand ischemia Code(s): I24.8 - OTHER FORMS OF ACUTE ISCHEMIC HEART DISEASE Status: Acute (5) Hypokalemia Code(s): E87.6 - HYPOKALEMIA Status: Acute (6) Hyponatremia Code(s): E87.1 - HYPO-OSMOLALITY AND HYPONATREMIA Status: Acute (7) Sepsis with acute organ dysfunction Code(s): A41.9 - SEPSIS, UNSPECIFIED ORGANISM; R65.20 - SEVERE SEPSIS WITHOUT SEPTIC SHOCK Status: Ruled-out (8) Chronic a-fib Code(s): I48.2 - CHRONIC ATRIAL FIBRILLATION Status: Chronic Comment: rate controlled, on Xarelto (9) Chronic anticoagulation Code(s): Z79.01 - ROTOR ASSEMBLER (CURRENT) USE OF ANTICOAGULANTS Status: Chronic (10) DM2 (diabetes mellitus, type 2) Status: Chronic Qualifiers: Diabetes mellitus ferry terminal agent insulin use: with ferry terminal agent use Diabetes mellitus complication status: with circulatory complication Diabetes mellitus complication detail: with other circulatory complications Qualified Code(s): E11.59 - Type 2 diabetes mellitus with other circulatory complications; Z79.4 - buttermaker continuous churn (current) use of insulin; Z79.4 - buttermaker continuous churn (current) use of insulin; Z79.4 - shelter (current) use of insulin; Z79.4 - buttermaker continuous churn (current) use of insulin Comment: (11) HTN (hypertension) Code(s): I10 - ESSENTIAL (PRIMARY) HYPERTENSION Status: Chronic Qualifiers: Hypertension type: essential hypertension Qualified Code(s): I10 - Essential (primary) hypertension (12) History of pulmonary embolism Code(s): Z86.711 - PERSONAL HISTORY OF PULMONARY EMBOLISM Status: Chronic (13) Hypothyroidism Code(s): E03.9 - HYPOTHYROIDISM, UNSPECIFIED Status: Chronic (14) Obesity (BMI 30.0-34.9) Code(s): E66.9 - OBESITY, UNSPECIFIED Status: Chronic (15) Pulmonary hypertension Code(s): I27.20 - PULMONARY HYPERTENSION, UNSPECIFIED Status: Chronic (16) Severe tricuspid regurgitation Code(s): I07.1 - RHEUMATIC TRICUSPID INSUFFICIENCY Status: Chronic - Plan cont current plan of care, plan discussed w/ family * medication reviewed as below * symptomatic treatment * stable for discharge * see my discharge summery. Review of Systems - Review of Systems ENT: negative: Ear Pain, Ear Discharge, Nose Pain, Nose Discharge, Nose Congestion, Mouth Pain, Mouth Swelling, Throat Pain, Throat Swelling, Other Respiratory: negative: Cough, Dry, Shortness of Breath, Hemoptysis, SOB with Excertion, Pleuritic Pain, Sputum, Wheezing Cardiovascular: negative: chest pain, palpitations, orthopnea, paroxysmal nocturnal dyspnea, edema, light headedness, other Gastrointestinal: negative: Nausea, Vomiting, Abdominal Pain, Diarrhea, Constipation, Melena, Hematochezia, Other Genitourinary: negative: Dysuria, Frequency, Incontinence, Hematuria, Retention , Other Musculoskeletal: negative: Neck Pain, Shoulder Pain, Arm Pain, Back Pain, Hand Pain, Leg Pain, Foot Pain, Other - Medications/Allergies Allergies/Adverse Reactions: Allergies Allergy/AdvReac Type Severity Reaction Status Date / Time Penicillins Allergy Hives Verified 11/04/14 13:06 Medications: Current Medications Acetaminophen (Tylenol) 500 mg PO Q6H PRN PRN Reason: Mild Pain (1-3) Albuterol/Ipratropium (Duoneb) 3 ml NEB [id number] PRN PRN Reason: SOB &/or Wheezing Anastrozole (Arimidex) 1 mg PO DAILY [facility] Last Admin: 04/03/18 08:16 Dose: 1 mg Benzonatate (Tessalon) 100 mg PO Q6H PRN PRN Reason: Cough Bisacodyl (Dulcolax) 10 mg PO DAILYPRN PRN PRN Reason: Constipation Clonidine (Catapres) 0.1 mg PO Q4H PRN PRN Reason: SBP > 160____ Last Admin: 03/27/18 14:07 Dose: 0.1 mg Dextrose/Water (Dextrose 50%) 25 gm SLOW IVP PRN PRN PRN Reason: Hypoglycemia Famotidine (Pepcid) 20 mg PO BID [facility] Last Admin: 04/03/18 08:15 Dose: 20 mg Glucagon (Glucagon) 1 mg IM PRN PRN PRN Reason: Hypoglycemia Hydralazine HCl (Apresoline) 10 mg SLOW IVP Q4H PRN PRN Reason: SBP > 180 and HR < 70 Last Admin: 03/30/18 12:12 Dose: 10 mg Dextrose/Water (D5w) 1,000 mls @ 0 mls/hr IV .Q0M PRN PRN Reason: Hypoglycemia Insulin Glargine 20 units/ (Miscellaneous Medication) 0.2 mls @ 0 mls/hr SC [facility] Last Admin: 04/02/18 21:46 Dose: 0.2 mls Insulin Glargine 20 units/ (Miscellaneous Medication) 0.2 mls @ 0 mls/hr SC QAM [facility] Last Admin: 04/03/18 08:16 Dose: 0.2 mls Insulin Human Lispro (Humalog) 0 units SC .AGGRESSIVE SLIDING PRN PRN Reason: Aggressive Correctional Scale Last Admin: 04/01/18 18:33 Dose: 9 unit Insulin Human Lispro (Humalog) 0 units SC .BEDTIME SLIDING SC PRN PRN Reason: Bedtime Correctional Scale Last Admin: 03/29/18 21:19 Dose: 5 unit Lactulose (Lactulose) 20 gm PO BID [facility] Last Admin: 04/03/18 08:17 Dose: 20 gm Levothyroxine Sodium (Synthroid) 112 mcg PO 0600 [facility] Last Admin: 04/03/18 05:35 Dose: Not Given Lisinopril (Zestril) 10 mg PO HS [facility] Last Admin: 04/02/18 21:46 Dose: 10 mg Loperamide HCl (Imodium) 2 mg PO PRN PRN PRN Reason: Diarrhea/Loose Stools Nitroglycerin (Nitrostat) 0.4 mg SL Q5MIN PRN PRN Reason: Chest Pain Ondansetron HCl (Zofran Odt) 4 mg PO Q6H PRN PRN Reason: Nausea/Vomiting Ondansetron HCl (Zofran) 4 mg IVP Q6H PRN PRN Reason: Nausea/Vomiting Rifaximin (Xifaxan) 550 mg PO BID [facility] Last Admin: 04/03/18 08:13 Dose: 550 mg Rivaroxaban (Xarelto) 5 mg PO DAILY [facility] Last Admin: 04/03/18 08:14 Dose: 5 mg Saccharomyces Boulardii (Florastor) 250 mg PO DAILY [facility] Last Admin: 04/03/18 08:14 Dose: 250 mg Senna/Docusate Sodium (Senokot S) 2 tab PO BID PRN PRN Reason: Constipation Sodium Chloride ([place] Nasal [place] 0.65%) 0 ml EA NARE QIDPRN PRN PRN Reason: Nasal Congestion Sodium Chloride (Flush - Normal Saline) 10 ml IVF Q12HR [facility] Last Admin: 04/03/18 08:18 Dose: 10 ml Sodium Chloride (Flush - Normal Saline) 10 ml IVF PRN PRN PRN Reason: Saline Flush Last Admin: 03/31/18 13:43 Dose: 10 ml Spironolactone (Aldactone) 25 mg PO BID [facility] Last Admin: 04/03/18 08:16 Dose: 25 mg Throat Lozenges (Cepastat Lozenges) 1 garth PO Q2H PRN PRN Reason: Sore Throat Tramadol HCl (Ultram) 50 mg PO Q6HR PRN PRN Reason: pain 4-6
--- NOTE | 2018-04-03 10:57 | PRG ---
DATE OF SERVICE: 04/03/2018 SUBJECTIVE: Mr. Bell is resting comfortably. He looks sleepy, but he awakens easily. He has no complaints of chest pain or pressure. No shortness of breath. OBJECTIVE: VITAL SIGNS: Blood pressure 133/87, pulse 78, irregularly irregular. CARDIAC: No murmur, rub, or gallop. ABDOMEN: Obese, plus likely ascites. EXTREMITIES: Only minimal edema. SKIN: Warm and dry. PERTINENT LABORATORY: His potassium is 4.4, bilirubin is 2.3. The INR is 1.5 with a PTT of 49.6. ASSESSMENT: 1. Chronic atrial fibrillation. 2. Diastolic heart failure. 3. Cirrhosis. 4. Pulmonary hypertension. PLAN: 1. Resume torsemide. 2. Continue spironolactone. 3. It is really unclear what is ideal for this gentleman with anticoagulation. I think Coumadin would be a very poor choice, almost certainly would get out of control in terms of anticoagulation. He is currently on Xarelto 5 mg a day. It is really unclear what is the best option for this gentleman. It appears on April 02 even without any anticoagulation, his INR was 1.4. The PTT was 46.9. At this point, it appears he needs some type of help at home replacement. It is okay with me to discontinue telemetry. I think, the options when he goes home with either not getting any anticoagulation or certainly reduced dose of Xarelto. Unclear what would be the best dose for this gentleman. He is on 15 mg a day at home. This drug is mostly hepatic excreted. We will discuss with other physicians. Job ID: [id number]
--- NOTE | 2018-04-03 11:21 | DIS ---
DATE OF ADMISSION: 03/27/2018 DATE OF DISCHARGE: 04/03/2018 ADDENDUM: This patient was planned for discharge yesterday, but the patient was more lethargic, more fatigued, and that is why discharge was on hold. We are suspecting that his lethargy and fatigue are related with his inability to get a testosterone injection, which is he due. I advised today his son to get testosterone injection in the hospital, so we can give it to him today. Otherwise, the patient is doing very well. He will continue above-mentioned medication as per my previous discharge summary and he is medically stable enough for discharge. He is on room air. He is doing very well. I spoke with the son and updated about the plan. We only reduced to Xarelto 5 mg p.o. daily based on Cardiology's recommendation. Job ID: [id number]
[2018-04-03 12:45] VITALS: BP 123/64; TEMP 99.8
[2018-04-03] MEDS: HumaLOG 300 UNITS/3 ML VIAL SC PRN (12:57)
--- NOTE | 2018-04-03 13:42 | PRG ---
DATE OF SERVICE: 04/03/2018 SERVICE: Pulmonary Medicine. INTERVAL HISTORY: The patient is breathing comfortably. He has no specific complaints today. He has no chest discomfort. He had no significant events overnight. Nursing reports no overnight events. OBJECTIVE: VITAL SIGNS: Afebrile. T-max 99.8, pulse 63, blood pressure 123/64, respirations 16, and saturation 96% on room air. GENERAL: The patient is awake and alert, in no apparent distress. LUNGS: Dependent crackles are still present. There is no prolonged expiratory phase or wheezing. HEART: Normal rate, regular. ABDOMEN: Soft, nontender, and nondistended. Bowel sounds are positive. MUSCULOSKELETAL: No cyanosis or clubbing. There is trace to 1+ pitting in the bilateral lower extremities. He has no hair on his legs. LABORATORY DATA: INR 1.5. ASSESSMENT: 1. Acute hypoxic respiratory failure, resolved. 2. Chronic diastolic heart failure. 3. 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 4. Obstructive sleep apnea. 5. Cirrhosis. DISCUSSION AND PLAN: The patient is doing fine from respiratory standpoint. At this point, he has returned to essentially his baseline. He is being prepared for discharge today. He will need to resume his testosterone on discharge from the hospital as he relates that this is the reason that he lacks energy presently. If he remains inhouse, Pulmonary will continue to follow. Job ID: [id number]
[2018-04-03] MEDS ORDERED: Torsemide 20 MG TAB PO SCH (14:00)
--- NOTE | 2018-04-03 14:37 | PRG ---
DATE OF SERVICE: 04/03/2018 SUBJECTIVE: Mr. Bell is going to go home today. His son states he is much more alert . OBJECTIVE: VITAL SIGNS: Temperature 99, pulse 63, blood pressure 123/64. GENERAL: The patient is alert and oriented to person, place, and time. ABDOMEN: Soft, slightly protuberant with fluid wave. EXTREMITIES: Showed trace edema. LABORATORY DATA: White count 6.1, hemoglobin of 14.5, platelet count 241. INR is 1.5. No labs today otherwise. Yesterday AST and ALT were 39 and 29 with alk phos 378, total bilirubin of 2.3. ASSESSMENT: 1. Right heart failure. 2. Cirrhosis. 3. Pulmonary hypertension. PLAN: 1. I agree with spironolactone in addition to his other diuretic regimen. 2. He is going to go on a reduced dose of Xarelto. 3. I talked with family also about avoiding . He does not do that. 4. I advised the patient to follow up in about 2 to 3 weeks in the office or sooner if needed and not to stop his lactulose and Xifaxan. Job ID: [id number]
== END 2018-04-03 14:05 | disposition home health service (06) | DRG 291 ==
LOC: ERS 01:23 → ERHOLD 03:37 → 2NO 15:23
PROVIDERS: ADMIT Internal Medicine; ATTEND Internal Medicine
DX: I11.0 Hypertensive heart disease with heart failure (principal); J96.01 Acute respiratory failure with hypoxia; I24.8 Other forms of acute ischemic heart disease; E87.1 Hypo-osmolality and hyponatremia; E72.20 Disorder of urea cycle metabolism, unspecified; E87.4 Mixed disorder of acid-base balance; I50.33 Acute on chronic diastolic (congestive) heart failure; I48.2 Chronic atrial fibrillation; I07.1 Rheumatic tricuspid insufficiency; I35.0 Nonrheumatic aortic (valve) stenosis; G47.33 Obstructive sleep apnea (adult) (pediatric); I27.20 Pulmonary hypertension, unspecified; E03.9 Hypothyroidism, unspecified; E87.6 Hypokalemia; E11.59 Type 2 diabetes mellitus with other circulatory complications; E66.9 Obesity, unspecified; Z68.32 Body mass index [BMI] 32.0-32.9, adult; K72.90 Hepatic failure, unspecified without coma; K74.60 Unspecified cirrhosis of liver; D53.9 Nutritional anemia, unspecified; K76.0 Fatty (change of) liver, not elsewhere classified; Z79.4 Long term (current) use of insulin; Z79.01 Long term (current) use of anticoagulants; Z88.0 Allergy status to penicillin; Z86.711 Personal history of pulmonary embolism; Z85.828 Personal history of other malignant neoplasm of skin; Z87.891 Personal history of nicotine dependence; Z96.651 Presence of right artificial knee joint; Z90.49 Acquired absence of other specified parts of digestive tract; Z83.3 Family history of diabetes mellitus
CPT/HCPCS: 36415; 36416; 70450; 71045; 71275; 72170; 76705; 80048; 80053; 80076; 81003; 81015; 82105; 82140; 82553; 82805; 83605; 83735; 83880; 84484; 85025; 85060; 85610; 85730; 93005; 93306; 93798; 94760; 96365; 96375; G8978-GP-CL; G8979-GP-CJ; G8987-GO-CK; G8988-GO-CJ; J0360; J0696; J1120; J1650; J1940; J2185; J7050

== ENCOUNTER 2018-04-27 16:29 | Inpatient (IN) | payer MEDICARE, BC ==
[2018-04-27 17:20] LABS: #Eosinphils 0.7 thou/uL (0.0-0.7); #Lymphocytes 1.1 thou/uL (1.20-3.40); #Monocytes 0.3 thou/uL (0.11-0.59); %Basophils 0.5 % (0.0-1.0); %Eosinophils 11.3 % (0.0-10.0); %Lymphocytes 18.4 % (21.0-51.0); %Monocytes 5.2 % (0.0-10.0); %Neutrophils 64.6 % (42.0-75.0); Mean Corpuscular Hemoglobin 31.3 pg (27.0-31.0); Mean Platelet Volume 6.8 fL (7.4-10.4); Platelet Count 202 thou/uL (130-400); RBC Distribution Width 15.4 % (11.5-14.5); Red Blood Cell (RBC) Count 4.16 mill/uL (4.70-6.10); White Blood Cell (WBC) Count 6.2 thou/uL (4.8-10.8)
[2018-04-27 17:42] LABS: ALT (SGPT) 21 U/L (8-55); AST (SGOT) 21 U/L (5-34); Acetaminophen Less than 6.0 mcg/mL (10.0-30.0); Albumin 3.7 g/dL (3.4-4.8); Alcohol Less than 10 mg/dL (Less than 10); Alkaline Phosphatase 246 U/L (40-150); Anion Gap 15 mmol/L (10-20); BUN (Urea Nitrogen) 19 mg/dL (8.4-25.7); Bilirubin, Total 2.4 mg/dL (0.2-1.2); Calc. Creatinine Clearance 0 mL/min (70-130); Calcium 9.9 mg/dL (7.8-10.44); Carbon Dioxide 25 mmol/L (23-31); Chloride 103 mmol/L (98-107); Estimated GFR-MDRD 71; Globulin 4.3 g/dL (2.4-3.5); Glucose 178 mg/dL (83-110); Lipase 36 U/L (8-78); Salicylate Less than 8.0 mg/dL (15.0-30.0); Sodium 139 mmol/L (136-145)
[2018-04-27] MEDS ORDERED: Furosemide 40 MG/4 ML VIAL ONE (18:16)
[2018-04-27 18:41] LABS: Bilirubin Small (Negative); Blood, Urine Negative (Negative); Clarity CLEAR (Clear); Glucose, Urine (Dipstick) 100 mg/dL (Negative); Leukocyte Moderate (Negative); Nitrite Negative (Negative); Protein, Urine (Dipstick) 30 mg/dL (Neg-Trace); Specific Gravity, Urine 1.022 (1.002-1.036)
[2018-04-27 18:43] LABS: Bacteria/HPF None Seen HPF (None Seen); Hyaline Casts/LPF 0-3 HYALINE CAST LPF (0-3 Hyaline); RBC/HPF 0-3 HPF (0-3); Squamous Epithelial 0-3 HPF (0-3)
--- NOTE | 2018-04-27 18:46 | CT ---
BRAIN CT WITHOUT IV CONTRAST: 04/27/18 HISTORY: 82-year-old male with history of altered mental status. Fluid overload. FINDINGS: There is right sphenoid sinus mucosal disease. There is motion artifact particularly through the lowe r scan slice levels. There is bilateral atrophy and chronic white matter ischemic changes. Minimal sl ightly more prominent low attenuation change in the subcortical region of the left parietal lobe. Thi s is stable. Evidence for an old infarct or other old insult. IMPRESSION: Right sphenoid sinus mucosal disease. Bilateral atrophy and chronic white matter ischemic changes. Mi nimal stable low attenuation changes in the left parietal lobe. Attenuation change posteriorly in the subcortical region. POS: [facility]
--- NOTE | 2018-04-27 18:47 | RAD ---
CHEST ONE VIEW PORTABLE: 04/27/18 HISTORY: 82-year-old male with history of fluid overload. COMPARISON: 03/27/18. FINDINGS: Cardiomegaly with bilateral vascular congestion and bilateral interstitial edema and pleural effusion s, larger on the left side, evidence for some congestive heart failure. IMPRESSION: Evidence for some congestive heart failure. Little change from prior study. No significant new proces s. POS: [facility]
[2018-04-27 18:51] LABS: Amphetamine Not Detected (NotDetected); Barbiturates Screen Not Detected (NotDetected); Benzodiazepine Screen Not Detected (NotDetected); Cocaine Metabolite Screen Not Detected (NotDetected); Medtox Control Line Valid? VALID (VALID); Medtox Reader # READER 1; Methadone Not Detected (NotDetected); Methamphetamine Not Detected (NotDetected); Opiate Screen Not Detected (NotDetected); Oxycodone Screen Not Detected (NotDetected); Phencyclidine (PCP) Not Detected (NotDetected); THC/Cannabinoid Screen Not Detected (NotDetected); Tricyclic Screen Not Detected (NotDetected)
[2018-04-27] MEDS ORDERED: Ondansetron PF 4 MG/2 ML Vial IVP PRN ×2 (20:55→21:40)
[2018-04-27] MEDS ORDERED: Ondansetron ODT 4 MG TAB SL PRN (20:55)
[2018-04-27] MEDS ORDERED: Acetaminophen 325 MG TAB PO PRN ×2 (20:55→21:40)
[2018-04-27 20:57] VITALS: BMI 34.2
[2018-04-27] MEDS ORDERED: Calcium Carbonate 500 MG ChewTAB PO PRN (21:40)
[2018-04-27] MEDS ORDERED: Senokot S 8.6-50 MG TAB PO PRN (21:40)
[2018-04-27] MEDS ORDERED: Bisacodyl 5 MG TAB PO PRN (21:40)
[2018-04-27] MEDS ORDERED: Dextrose 50% Abboject 50 ML SYRINGE SLOW IVP PRN (21:40)
[2018-04-27] MEDS ORDERED: Ondansetron ODT 4 MG TAB PO PRN (21:40)
[2018-04-27] MEDS ORDERED: HumaLOG 300 UNITS/3 ML VIAL SC PRN ×2 (21:40)
[2018-04-27] MEDS ORDERED: Dextrose 5% in Water 1,000 ML IV PRN (21:40)
[2018-04-27] MEDS ORDERED: Bisacodyl 10 MG SUPP PR PRN (21:40)
[2018-04-27] MEDS ORDERED: Metolazone 5 MG TAB PO SCH (22:00)
[2018-04-27] MEDS ORDERED: Spironolactone 25 MG TAB PO SCH (22:30)
[2018-04-27] MEDS ORDERED: Rifaximin 550 MG TAB PO SCH (22:30)
[2018-04-27] MEDS ORDERED: Torsemide 20 MG TAB PO SCH (22:30)
--- NOTE | 2018-04-28 00:41 | HP ---
PRIMARY CARE PHYSICIAN: [facility]. REASON FOR ADMISSION: Anasarca, altered mental status (hepatic encephalopathy). HISTORY OF PRESENT ILLNESS: This is an 82-year-old male, who was brought to emergency room for fluid overload status. He was having increasing lower extremity edema, increasing dyspnea, along with that, the patient was also having increasing confusion. In the emergency room, the patient had a routine blood test, which showed elevated ammonia level. His urinalysis is suggestive of UTI, though patient denies any UTI symptoms. He is afebrile in the emergency room. REVIEW OF SYSTEMS: CONSTITUTIONAL: Negative for weight loss or gain, ability to conduct usual activities. SKIN: Negative for rash, itching. EYES: Negative for double vision, pain. ENT/MOUTH: Negative for nose bleeding, neck stiffness, pain, tenderness. CARDIOVASCULAR: Negative for palpitations, dyspnea on exertion, orthopnea. RESPIRATORY: Negative for shortness of breath, wheezing, cough, hemoptysis, fever or night sweats. GASTROINTESTINAL: Negative for poor appetite, abdominal pain, heartburn, nausea, vomiting, constipation, or diarrhea. GENITOURINARY: Negative for urgency, frequency, dysuria, nocturia. MUSCULOSKELETAL: Negative for pain, swelling. NEUROLOGIC/PSYCHIATRIC: Negative for anxiety, depression. ALLERGY/IMMUNOLOGIC: Negative for skin rash, bleeding tendency. Please see my HPI for pertinent positives and negatives. All other review of systems reviewed and negative except as mentioned in HPI. EMERGENCY ROOM COURSE: The patient is given Lasix in the emergency room. PAST MEDICAL HISTORY: 1. Chronic diastolic heart failure. 2. Severe tricuspid regurgitation. 3. Pulmonary hypertension. 4. Moderate aortic stenosis. 5. Chronic atrial fibrillation. 6. Chronic anticoagulation with Xarelto. 7. Nonsustained ventricular tachycardia. 8. Diabetes mellitus, insulin dependent. 9. Obstructive sleep apnea, noncompliance with CPAP machine. 10. Hypothyroidism. 11. History of pulmonary embolism. PAST PSYCHIATRIC HISTORY: Reviewed and negative. PAST SURGICAL HISTORY: 1. Right knee replacement. 2. Cholecystectomy. 3. Thyroidectomy. 4. Skin cancer removed in 2016. SOCIAL HISTORY: The patient lives at home. No history of tobacco, alcohol, or illicit drug abuse. He is ex-smoker and quit smoking in 1984. FAMILY HISTORY: No family history of premature coronary artery disease, stroke, or cancer. Diabetes positive among several family members. ALLERGIES: PENICILLIN. CURRENT HOME MEDICATIONS: 1. Arimidex 1 mg daily. 2. NovoLog insulin as per sliding scale. 3. Lactulose 30 mL p.o. b.i.d. 4. Levothyroxine 112 mcg two tablets daily. 5. Aldactone 25 mg b.i.d. 6. Testosterone 1 mL IM every 7 days. 7. Demadex 20 mg in the evening and 40 mg in the morning. 8. Lantus 20 units subcu b.i.d. 9. Rifaximin 550 mg b.i.d. 10. Xarelto 5 mg daily. PHYSICAL EXAMINATION: VITAL SIGNS: On arrival, blood pressure 153/87, pulse 78, respiratory rate 22, temperature 99.1, saturation 100% on room air. Weight 108.8 kg. GENERAL: The patient is currently alert, awake, chronically ill, slightly confused. HEENT: Head; normocephalic, atraumatic. Eyes; pupils are round and reactive to light, extraocular muscles intact. ENT; oropharynx within normal limits, moist mucous membranes, no oral lesion, no pharyngeal erythema. NECK: Elevated JVD. No thyromegaly. No carotid bruit. LUNGS: Reduced air entry bilaterally. No wheeze. No rhonchi. CARDIAC: S1 and S2, slightly irregular. Systolic murmur noted at parasternal. No gallop. No rub. ABDOMEN: Obesity present. Ascites present. No peritoneal sign. No guarding. No rigidity. No rebound. BACK: Unremarkable. No CVA tenderness. EXTREMITIES: Upper extremities; passive movement of all joints are normal. Lower extremities; bilateral chronic lower extremity pitting edema noted with venous stasis changes. SKIN: No skin rash. HEMATOLOGICAL: No lymphadenopathy. NEUROLOGIC: Nonfocal examination. No asterixis. No confusion noted. SIGNIFICANT LABORATORY DATA/IMAGING: EKG showing atrial fibrillation with controlled ventricular response. Chest x-ray showing findings suggestive of congestive heart failure with pleural effusion. CBC; WBC 6.2, hemoglobin 13.0, platelet 202. BMP; sodium 139, potassium 4.0, BUN 19, creatinine 1.01, glucose 178, calcium 9.9. LFT; AST 21, ALT 21, alkaline phosphatase 246, albumin 3.7. TSH 1.87. Ammonia 82. Troponin 0.019. BNP 32. Urinalysis suggestive of UTI. Urine drug screen negative. Serum drug screen negative. ASSESSMENT AND PLAN: 1. Acute on chronic diastolic congestive heart failure, stage C. 2. Hepatic encephalopathy. 3. Urinary tract infection. 4. Chronic atrial fibrillation. 5. Chronic anticoagulation with Xarelto. 6. History of pulmonary embolism. 7. Insulin-dependent diabetes type 2. 8. Hypothyroidism. 9. Macrocytic anemia. 10. Obstructive sleep apnea, noncompliant with CPAP machine. 11. Pulmonary hypertension. 12. Obesity with BMI of 34. PLAN: Observation to telemetry floor. Zaroxolyn 5 mg p.o. daily. Continue Demadex as per home dosage. Start levofloxacin for urinary tract infection. Continue lactulose 30 mL t.i.d. along with rifaximin 550 mg b.i.d. Gastroenterology consultation. Resume selected home medication, fluid restriction, diabetic diet. Home medications will be reconciled. Continue Xarelto as per low dose. DVT prophylaxis not needed because the patient is already on Xarelto therapy. GI prophylaxis. Pepcid 20 mg IV b.i.d. CODE STATUS: The patient is full code. The patient's son, Lux, is surrogate decision maker. DISPOSITION/PLAN: Based on clinical course, likely 24 to 48 hours. Plan of care discussed with the patient in detail. Job ID: [id number]
[2018-04-28] MEDS: Levothyroxine Sodium 112 MCG TAB PO SCH (04:08)
[2018-04-28 06:00] LABS: #Basophils 0.1 thou/uL (0.0-0.2); #Eosinphils 0.7 thou/uL (0.0-0.7); #Lymphocytes 0.8 thou/uL (1.20-3.40); #Monocytes 0.3 thou/uL (0.11-0.59); #Neutrophils 2.8 thou/uL (1.40-6.50); %Basophils 1.1 % (0.0-1.0); %Eosinophils 15.1 % (0.0-10.0); %Lymphocytes 16.4 % (21.0-51.0); %Neutrophils 61.4 % (42.0-75.0); Hemoglobin 12.8 g/dL (14.0-18.0); Mean Corpuscular HGB CONC 32.5 g/dL (32.0-36.0); Mean Corpuscular Hemoglobin 32.1 pg (27.0-31.0); Platelet Count 172 thou/uL (130-400); RBC Distribution Width 15.4 % (11.5-14.5); Red Blood Cell (RBC) Count 3.98 mill/uL (4.70-6.10); White Blood Cell (WBC) Count 4.6 thou/uL (4.8-10.8)
[2018-04-28 06:27] LABS: ALT (SGPT) 19 U/L (8-55); AST (SGOT) 20 U/L (5-34); Albumin 3.3 g/dL (3.4-4.8); Alkaline Phosphatase 230 U/L (40-150); Anion Gap 13 mmol/L (10-20); BUN (Urea Nitrogen) 20 mg/dL (8.4-25.7); Calc. Creatinine Clearance 82 mL/min (70-130); Calcium 9.5 mg/dL (7.8-10.44); Carbon Dioxide 26 mmol/L (23-31); Chloride 105 mmol/L (98-107); Estimated GFR-MDRD 64; Globulin 3.7 g/dL (2.4-3.5); Glucose 240 mg/dL (83-110); Potassium 3.6 mmol/L (3.5-5.1); Sodium 140 mmol/L (136-145)
[2018-04-28] MEDS: Rivaroxaban 10 MG TAB PO SCH (09:13)
[2018-04-28] MEDS: Famotidine/PF 20 mg/2ml Vial SLOW IVP SCH ×2 (09:14→21:27)
[2018-04-28] MEDS: Anastrozole 1 MG TAB PO SCH (09:14)
[2018-04-28] MEDS: Insulin Glargine 20 UNITS in Pre-Filled Syringe 1 EACH SC SCH ×2 (09:25→21:27)
[2018-04-28] MEDS: Metolazone 5 MG TAB PO SCH (09:26)
[2018-04-28] MEDS: Rifaximin 550 MG TAB PO SCH ×2 (09:27→21:25)
[2018-04-28] MEDS: Spironolactone 25 MG TAB PO SCH ×2 (09:27→16:41)
[2018-04-28] MEDS: Torsemide 20 MG TAB PO SCH (09:27)
--- NOTE | 2018-04-28 18:41 | PDOC.EVN ---
Event Note - Event Note Event Note: Reviewed patient record. Has complicated history. Presented with evidence of volume overload. Had pulmonary edema on CXR consistent with decompensated CHF, but BNP is only 32. Has hx of diastolic dysfunction. On multiple diuretics at home. Will give additional IV Lasix as Ritika reports persistent SOB with speaking. Had some encephalopathy, but sound like that is improving. Discussed with GI. He will see the patient tonight. Has a-fib, but his xarelto dose is reduced based upon previous cardiology recommendations. Continue Abx for UTI and follow up cultures.
[2018-04-28] MEDS ORDERED: Furosemide 40 MG/4 ML VIAL SLOW IVP SCH (18:45)
--- NOTE | 2018-04-28 20:04 | PDOC.PN ---
- Subjective Encounter Start Date: 04/28/18 Encounter Start Time: 09:30 Subjective: Patient examined, answered questions appropriately -: Per family at the bedside, patient still confused at times -: Denies complaints, reports 11 pd weight gain in the last 3 days - Objective Resuscitation Status - Order Detail: 04/27/18 21:36 Resuscitation Status Routine Resuscitation Status: FULL: Full Resuscitation Vital Signs & Weight: Vital Signs (12 hours) Temp Pulse Resp BP BP Pulse Ox 04/28/18 15:22 97.7 F 71 16 138/73 100 04/28/18 11:51 98.1 F 68 20 125/60 98 Weight Weight 107.637 kg I&O: 04/27/18 04/28/18 04/29/18 06:59 06:59 06:59 Intake Total 150 1210 Output Total 50 Balance 100 1210 Result Diagrams: 04/28/18 05:47 04/28/18 05:47 Additional Labs: Accuchecks 04/28/18 04/28/18 04/27/18 16:29 10:41 20:45 POC Glucose 257 H 226 H 175 H Phys Exam - Physical Examination Constitutional: NAD HEENT: PERRLA, moist MMs Neck: no nodes, no JVD diminished at the bases, talks in short sentences Cardiovascular: RRR Gastrointestinal: soft, non-tender mild distention noted Musculoskeletal: no edema, pulses present Neurological: non-focal, normal sensation, moves all 4 limbs Lymphatic: no nodes Psychiatric: normal affect, A&O x 3 Skin: no rash, normal turgor Dx/Plan (1) Acute on chronic diastolic ACC/AHA stage C congestive heart failure Code(s): I50.33 - ACUTE ON CHRONIC DIASTOLIC (CONGESTIVE) HEART FAILURE Status : Acute (2) Cirrhosis of liver with ascites Code(s): K74.60 - UNSPECIFIED CIRRHOSIS OF LIVER; R18.8 - OTHER ASCITES Status : Acute Comment: suspecting from cardiac etiology vs nonalcoholic cirrhosis (3) Chronic a-fib Code(s): I48.2 - CHRONIC ATRIAL FIBRILLATION Status: Chronic Comment: rate controlled, on Xarelto (4) Chronic anticoagulation Code(s): Z79.01 - INFANT CAREGIVER (CURRENT) USE OF ANTICOAGULANTS Status: Chronic (5) DM2 (diabetes mellitus, type 2) Status: Chronic Qualifiers: Diabetes mellitus outside upholsterer insulin use: with outside upholsterer use Diabetes mellitus complication status: with circulatory complication Diabetes mellitus complication detail: with other circulatory complications Qualified Code(s): E11.59 - Type 2 diabetes mellitus with other circulatory complications; Z79.4 - revolving field assembler (current) use of insulin; Z79.4 - [facility] (current) use of insulin; Z79.4 - revolving field assembler (current) use of insulin; Z79.4 - [facility] (current) use of insulin Comment: (6) HTN (hypertension) Code(s): I10 - ESSENTIAL (PRIMARY) HYPERTENSION Status: Chronic Qualifiers: Hypertension type: essential hypertension Qualified Code(s): I10 - Essential (primary) hypertension - Plan cont current plan of care Added IV lasix to medication regimen -: GI to consult -: Will trend labs, follow VS * .
[2018-04-28] MEDS ORDERED: Torsemide 20 MG TAB PO SCH (21:00)
--- NOTE | 2018-04-29 03:25 | CON ---
DATE OF CONSULTATION: 04/28/2018 TYPE OF CONSULTATION: Gastroenterology. CHIEF COMPLAINT: Confusion and fluid overload. HISTORY OF PRESENT ILLNESS: Mr. Bell is an 82-year-old man who was admitted to the emergency room last night with confusion and increased fluid retention. He has a history of cirrhosis, heart failure, and pulmonary hypertension. He has been on lactulose once a day and has a bowel movement about once per day. He has been taking Xifaxan as well. He has had no blood in the stool or no black stools, no abdominal pain, no nausea or vomiting. He was diagnosed with a urinary tract infection by urinalysis and has been started on antibiotics for that. He has been given higher dose lactulose here in the hospital and his mental status has improved. PAST MEDICAL HISTORY: 1. Cirrhosis of the liver. 2. Diastolic heart dysfunction with pulmonary hypertension and tricuspid valve insufficiency. 3. Obstructive sleep apnea. 4. Atrial fibrillation. 5. Hypertension. 6. Hypothyroidism. 7. Diabetes mellitus. PAST SURGICAL HISTORY: 1. Knee replacement. 2. Cholecystectomy. 3. Thyroidectomy. 4. Angioplasty. 5. Colonoscopy. FAMILY HISTORY: Negative for GI malignancies. SOCIAL HISTORY: No alcohol, tobacco, or drugs. ALLERGIES: PENICILLIN. MEDICATIONS: Prior to admission include, 1. Insulin. 2. Xifaxan 550 mg twice daily. 3. Lactulose 20 g twice daily. 4. Xarelto 5 mg daily. 5. Tramadol. 6. Arimidex. 7. Metolazone. 8. Levothyroxine. 9. Torsemide. 10. Spironolactone 25 mg twice daily. 11. Testosterone. REVIEW OF SYSTEMS: Negative x10 systems reviewed except as stated in the history of present illness. PHYSICAL EXAMINATION: VITAL SIGNS: Temperature 97.1, pulse 71, blood pressure 138/73. GENERAL: He is in no acute distress. He is alert and oriented x3 now. HEENT: His eyes have no scleral icterus. Oropharynx is clear without lesions. NEUROLOGIC: He has no asterixis on neurological exam. NECK: No cervical or supraclavicular lymphadenopathy. LUNGS: Clear to auscultation bilaterally. HEART: Regular rate and rhythm without murmur. ABDOMEN: Distended, but soft and nontender. Bowel sounds are present. EXTREMITIES: 1+ pitting lower extremity edema. LABORATORY DATA: White blood cell count 4.6, hemoglobin 12.8, platelets 172. INR 1.5. Creatinine 1.1. Bilirubin 2.0, AST 20, ALT 19, alkaline phosphatase 230, albumin 3.3. IMPRESSION: 1. Cirrhosis of the liver, decompensated with hepatic encephalopathy and elevated bilirubin. 2. Right heart failure and pulmonary hypertension. 3. Hepatic encephalopathy. This is now improved with treatment of urinary tract infection and higher dose lactulose. RECOMMENDATIONS: 1. Continue Xifaxan. 2. Continue lactulose. This should be titrated to 3 bowel movements per day. He states that he has been having 1 per day prior to admission. He did have 20 g twice daily ordered on his last discharge orders; however, he states he has been taking it once daily, he complains of the soft stool that occurs with it. He was encouraged to continue at the twice daily dosing at this point to help reduce the risk for recurrent hepatic encephalopathy and readmission. 3. He will continue on the current diuretics. 4. His encephalopathy has improved and it is anticipated that he will discharge home tomorrow. He has had some shortness of breath and he has been given additional diuretic for that. 5. I will sign off for now. Please call if GI can be of assistance. Job ID: [id number]
[2018-04-29 03:56] LABS: #Eosinphils 0.9 thou/uL (0.0-0.7); #Lymphocytes 1.1 thou/uL (1.20-3.40); #Monocytes 0.4 thou/uL (0.11-0.59); #Neutrophils 3.3 thou/uL (1.40-6.50); %Basophils 0.3 % (0.0-1.0); %Eosinophils 15.8 % (0.0-10.0); %Lymphocytes 19.6 % (21.0-51.0); %Monocytes 6.2 % (0.0-10.0); %Neutrophils 58.1 % (42.0-75.0); Hemoglobin 12.8 g/dL (14.0-18.0); Mean Corpuscular HGB CONC 32.4 g/dL (32.0-36.0); Mean Corpuscular Hemoglobin 31.9 pg (27.0-31.0); Mean Corpuscular Volume 98.6 fL (78.0-98.0); Platelet Count 184 thou/uL (130-400); RBC Distribution Width 15.3 % (11.5-14.5); Red Blood Cell (RBC) Count 4.01 mill/uL (4.70-6.10); White Blood Cell (WBC) Count 5.7 thou/uL (4.8-10.8)
[2018-04-29 04:14] LABS: ALT (SGPT) 22 U/L (8-55); AST (SGOT) 22 U/L (5-34); Albumin 3.5 g/dL (3.4-4.8); Alkaline Phosphatase 250 U/L (40-150); Anion Gap 15 mmol/L (10-20); BUN (Urea Nitrogen) 22 mg/dL (8.4-25.7); Bilirubin, Total 2.1 mg/dL (0.2-1.2); Calc. Creatinine Clearance 72 mL/min (70-130); Calcium 9.9 mg/dL (7.8-10.44); Carbon Dioxide 32 mmol/L (23-31); Chloride 97 mmol/L (98-107); Estimated GFR-MDRD 56; Glucose 163 mg/dL (83-110); Potassium 3.5 mmol/L (3.5-5.1); Protein, Total 7.5 g/dL (5.8-8.1); Sodium 140 mmol/L (136-145)
[2018-04-29] MEDS: Levothyroxine Sodium 112 MCG TAB PO SCH (05:40)
[2018-04-29 08:17] VITALS: BP 135/63; TEMP 98.2
[2018-04-29] MEDS ORDERED: Furosemide 40 MG/4 ML VIAL SLOW IVP SCH (09:00)
[2018-04-29] MEDS: Famotidine/PF 20 mg/2ml Vial SLOW IVP SCH (09:20)
[2018-04-29] MEDS: Insulin Glargine 20 UNITS in Pre-Filled Syringe 1 EACH SC SCH (09:20)
[2018-04-29] MEDS: Spironolactone 25 MG TAB PO SCH (09:21)
[2018-04-29] MEDS: Anastrozole 1 MG TAB PO SCH (09:21)
[2018-04-29] MEDS: Metolazone 5 MG TAB PO SCH (09:21)
[2018-04-29] MEDS: Torsemide 20 MG TAB PO SCH (09:22)
[2018-04-29] MEDS: Rifaximin 550 MG TAB PO SCH (09:22)
[2018-04-29] MEDS: Rivaroxaban 10 MG TAB PO SCH (09:22)
--- NOTE | 2018-05-01 12:45 | DIS ---
DATE OF ADMISSION: 04/28/2018 DATE OF DISCHARGE: 04/29/2018 DISCHARGE DIAGNOSES: 1. Acute on chronic congestive heart failure. 2. Chronic heart failure, stage III. 3. Non-hepatic encephalopathy. 4. Cirrhosis. 5. Chronic atrial fibrillation. 6. Chronic anticoagulation. 7. Diabetes mellitus. 8. Hypertension. HISTORY OF PRESENT ILLNESS: This patient is an 82-year-old male who presented to the emergency department with the complaint of anasarca and altered mental status. The patient has a history of chronic congestive heart failure stage III as well as cirrhosis. The patient is on aggressive diuretic therapy at home and he also takes lactulose at home for prevention of hepatic encephalopathy. The patient had not been taking the lactulose in adequate amounts to get the desired effect of 3 loose stools per day. The patient also reported that he was not getting adequate diuresis from the medications and was having increasing edema and dyspnea. There was also some initial concern for the possibility of urinary tract infection. The patient was subsequently admitted to the hospital and started on diuresis with lactulose and rifampin. He was initially placed in the observation status. He was seen in consultation by GI and essentially the plan was to increase the patient's lactulose to adequate amounts to get the desired effect. The patient did have significant resolution of any confusion or encephalopathy, and on the day of discharge was completely awake, coherent, and very appropriate. He did require some IV diuresis in order to address his edema and dyspnea, which worked very nicely. His urine cultures ultimately grew very low colony counts of Pseudomonas and gram-positive, which were felt to be more likely colonization rather than infection given that the patient had no symptoms related to these. Once the patient was fully cognitive, his edema had improved, and his breathing was stable. He was felt to be stable for discharge home. PHYSICAL EXAMINATION: On the day of discharge, VITAL SIGNS: Temperature was 92, pulse 72, respirations 18, O2 saturation 99% on room air, BP 135/63. GENERAL: He is awake, alert, oriented, pleasant, and cooperative. CARDIAC: Heart was irregular without murmurs. LUNGS: Clear bilaterally with no wheezes or rales. ABDOMEN: Soft, nontender, and nondistended. EXTREMITIES: With trace edema. DISPOSITION: The patient is discharged to home. DIET: He will be on a heart healthy, low-sodium diet. ACTIVITIES: His activity level is as tolerated. MEDICATIONS: He will remain on; 1. Arimidex. 2. Levothyroxine. 3. Torsemide. 4. NovoLog pen. 5. Aldactone. 6. Testosterone injection. 7. Lantus. 8. Rifaximin. 9. Lactulose. 10. Metolazone. 11. Xarelto. FOLLOWUP: He will follow up with Dr. Martinez and with Dr. Herndon. He can return to the emergency department should he have any problems prior to that time. Job ID: [id number]
--- NOTE | 2018-05-01 13:20 | PDOC.EVN ---
Event Note - Event Note Event Note: Reviewing the patient's discharge information, I found that the dose of the Xarelto for this patient was incorrectly put in as 15 mg when he had actually been instructed to take 5 mg. I called the patient to ensure the he knew to take the same dose he had been taking prior to his admission. He indicated understanding. He says he is doing very well. He said he had not had a bowel movement yet although he had increased the lactulose. He did not have a follow up appt with Dr. Chappell, but did have one with Dr. Hinkle next week. I recommended he follow up with Dr. Chappell soon to address the bowel regimen. I had instructed the patient on utilizing the diuretics with some liberty based upon his daily weights. He reports he has been doing well with keeping the weight down and fluid off.
== END 2018-04-29 10:52 | disposition home health service (06) | DRG 291 ==
LOC: ERS 16:29 → 2SW 18:24 → OBSVTOIN 04-28 18:27
PROVIDERS: ADMIT Emergency Medicine; ATTEND Emergency Medicine
DX: I13.0 Hypertensive heart and chronic kidney disease with heart failure and stage 1 through stage 4 chronic kidney disease, or unspecified chronic kidney disease (principal); I50.33 Acute on chronic diastolic (congestive) heart failure; N39.0 Urinary tract infection, site not specified; K74.60 Unspecified cirrhosis of liver; I48.2 Chronic atrial fibrillation; Z79.01 Long term (current) use of anticoagulants; G47.33 Obstructive sleep apnea (adult) (pediatric); I27.20 Pulmonary hypertension, unspecified; K72.90 Hepatic failure, unspecified without coma; E66.9 Obesity, unspecified; Z68.34 Body mass index [BMI] 34.0-34.9, adult
CPT/HCPCS: 36415; 36416; 70450; 71045; 80053; 80306; 80307; 81003; 81015; 82140; 83690; 83880; 84443; 84484; 85025; 87040; 87077; 87086; 87186; 93005; 96374; J1940; J1956; S0028

== ENCOUNTER 2018-05-03 10:39 | Emergency (ER) | payer MEDICARE, BC ==
[2018-05-03 11:25] LABS: Bilirubin Negative (Negative); Blood, Urine Negative (Negative); Clarity CLEAR (Clear); Glucose, Urine (Dipstick) Negative (Negative); Leukocyte Negative (Negative); Nitrite Negative (Negative); Protein, Urine (Dipstick) 30 mg/dL (Neg-Trace); Specific Gravity, Urine 1.014 (1.002-1.036)
[2018-05-03 11:28] LABS: Bacteria/HPF None Seen HPF (None Seen); Hyaline Casts/LPF 0-3 HYALINE CAST LPF (0-3 Hyaline); Pathc Cast-AUWi Flag 0.29 (0-2.49); RBC/HPF 0-3 HPF (0-3); Squamous Epithelial None Seen HPF (0-3); WBC/HPF 0-3 HPF (0-3)
[2018-05-03 11:43] LABS: #Basophils 0.1 thou/uL (0.0-0.2); #Eosinphils 0.8 thou/uL (0.0-0.7); #Lymphocytes 1.1 thou/uL (1.20-3.40); #Monocytes 0.4 thou/uL (0.11-0.59); #Neutrophils 4.2 thou/uL (1.40-6.50); %Basophils 0.8 % (0.0-1.0); %Eosinophils 12.9 % (0.0-10.0); %Lymphocytes 16.3 % (21.0-51.0); %Monocytes 5.5 % (0.0-10.0); %Neutrophils 64.5 % (42.0-75.0); Hemoglobin 14.2 g/dL (14.0-18.0); Mean Corpuscular HGB CONC 33.3 g/dL (32.0-36.0); Mean Corpuscular Hemoglobin 32.4 pg (27.0-31.0); Mean Corpuscular Volume 97.4 fL (78.0-98.0); Mean Platelet Volume 6.8 fL (7.4-10.4); Platelet Count 219 thou/uL (130-400); RBC Distribution Width 15.1 % (11.5-14.5); Red Blood Cell (RBC) Count 4.37 mill/uL (4.70-6.10); White Blood Cell (WBC) Count 6.5 thou/uL (4.8-10.8)
--- NOTE | 2018-05-03 11:46 | CT ---
CT HEAD WITHOUT CONTRAST: Date: 05/03/18 COMPARISON: 04/27/18. HISTORY: Altered mental status with confusion and difficulty speaking. TECHNIQUE: Axial CT imaging at 5 mm intervals from vertex through skull base without contrast. FINDINGS: The imaged paranasal sinuses and mastoid air cells demonstrate stable partial opacification of the sp henoid sinus on the right. There is atherosclerotic calcification of the cavernous carotid arteries. There is no acute osseous abnormality. There is no intracranial hemorrhage, midline shift, or mass ef fect. There is periventricular and deep white matter hypodensity suggesting small vessel disease. There is atherosclerotic calcification of the cavernous carotid arteries. IMPRESSION: Significant small vessel disease. No intracranial hemorrhage. If there is clinical concern for acute infarction, follow-up brain MRI is advised. Given isolated right sphenoid sinus disease, a nonemergent follow-up contrast enhanced brain MRI is a dvised. KACIE T. POS: [facility]
[2018-05-03 12:05] LABS: ALT (SGPT) 31 U/L (8-55); AST (SGOT) 29 U/L (5-34); Albumin 3.8 g/dL (3.4-4.8); Alkaline Phosphatase 292 U/L (40-150); Anion Gap 17 mmol/L (10-20); BUN (Urea Nitrogen) 31 mg/dL (8.4-25.7); Bilirubin, Total 2.1 mg/dL (0.2-1.2); Calc. Creatinine Clearance 0 mL/min (70-130); Calcium 10.4 mg/dL (7.8-10.44); Carbon Dioxide 29 mmol/L (23-31); Chloride 95 mmol/L (98-107); Estimated GFR-MDRD 51; Globulin 4.7 g/dL (2.4-3.5); Glucose 226 mg/dL (83-110); Potassium 3.6 mmol/L (3.5-5.1); Protein, Total 8.5 g/dL (5.8-8.1); Sodium 137 mmol/L (136-145)
--- NOTE | 2018-05-05 14:31 | EKG ---
Test Reason : Blood Pressure : / mmHG Vent. Rate : 074 BPM Atrial Rate : 071 BPM P-R Int : 000 ms QRS Dur : 112 ms QT Int : 418 ms P-R-T Axes : 000 -43 068 degrees QTc Int : 463 ms Normal sinus rhythm with 1st degree A-V block Left axis deviation Cannot rule out Anterior infarct , age undetermined No acute process Abnormal ECG Confirmed by JOSE VELA, DESMOND Day ([id number]), restaurant expeditor CHRISTIN CORRAL ([id number]) on 05/05/2018 2:31:29 PM Referred By: Confirmed By:DESMOND GARCIA MD
== END 2018-05-03 14:33 ==
LOC: ERS 10:39
DX: K72.90 Hepatic failure, unspecified without coma (principal); I48.91 Unspecified atrial fibrillation; E03.9 Hypothyroidism, unspecified; E10.9 Type 1 diabetes mellitus without complications; I11.0 Hypertensive heart disease with heart failure; I50.9 Heart failure, unspecified; Z86.711 Personal history of pulmonary embolism; Z79.899 Other long term (current) drug therapy
CPT/HCPCS: 36415; 70450; 80053; 81003; 81015; 82140; 85025; 93005

== ENCOUNTER 2018-05-23 08:27 | Outpatient (CLI) | payer MEDICARE, BC ==
--- NOTE | 2018-05-23 09:25 | RAD ---
PA AND LATERAL CHEST: Indication: History of dyspnea. Comparison: 05-05-18 FINDINGS: Cardiomegaly and chronic lung changes are stable. No consolidation or pleural effusion or pneumothora x is evident. Chronic osseous changes are similar appearing. Pleural thickening overlying the lingula is stable. Small amount of subsegmental atelectasis of the lingua is similar appearing. IMPRESSION: Stable exam. POS: [facility]
== END 2018-05-23 08:28 | disposition home or self-care (01) ==
LOC: RAD 08:27
PROVIDERS: ATTEND Internal Medicine Critical Care Medicine
DX: R06.00 Dyspnea, unspecified (principal)
CPT/HCPCS: 71046

== ENCOUNTER 2018-07-01 22:59 | Observation (INO) | payer MEDICARE, BC ==
[2018-07-01 23:48] LABS: Bilirubin Negative (Negative); Blood, Urine Negative (Negative); Clarity CLEAR (Clear); Glucose, Urine (Dipstick) 100 mg/dL (Negative); Leukocyte Negative (Negative); Nitrite Negative (Negative); Protein, Urine (Dipstick) 30 mg/dL (Neg-Trace); Specific Gravity, Urine 1.015 (1.002-1.036)
[2018-07-01 23:51] LABS: Bacteria/HPF None Seen HPF (None Seen); Hyaline Casts/LPF 0-3 HYALINE CAST LPF (0-3 Hyaline); Pathc Cast-AUWi Flag 0.13 (0-2.49); RBC/HPF 0-3 HPF (0-3); Squamous Epithelial 0-3 HPF (0-3); WBC/HPF None Seen HPF (0-3)
[2018-07-02 00:03] LABS: #Eosinphils 0.4 thou/uL (0.0-0.7); #Lymphocytes 1.1 thou/uL (1.20-3.40); #Monocytes 0.3 thou/uL (0.11-0.59); %Basophils 0.8 % (0.0-1.0); %Eosinophils 8.9 % (0.0-10.0); %Lymphocytes 21.6 % (21.0-51.0); %Monocytes 6.9 % (0.0-10.0); %Neutrophils 61.8 % (42.0-75.0); Hemoglobin 14.3 g/dL (14.0-18.0); Mean Corpuscular HGB CONC 30.9 g/dL (32.0-36.0); Mean Corpuscular Hemoglobin 30.5 pg (27.0-31.0); Mean Corpuscular Volume 98.6 fL (78.0-98.0); Platelet Count 151 thou/uL (130-400); RBC Distribution Width 14.7 % (11.5-14.5); Red Blood Cell (RBC) Count 4.69 mill/uL (4.70-6.10); White Blood Cell (WBC) Count 4.9 thou/uL (4.8-10.8)
[2018-07-02 00:24] LABS: ALT (SGPT) 26 U/L (8-55); AST (SGOT) 24 U/L (5-34); Alkaline Phosphatase 290 U/L (40-150); Anion Gap 15 mmol/L (10-20); BUN (Urea Nitrogen) 31 mg/dL (8.4-25.7); Bilirubin, Total 2.6 mg/dL (0.2-1.2); CK (CPK) 73 U/L (30-200); Calc. Creatinine Clearance 0 mL/min (70-130); Calcium 10.4 mg/dL (7.8-10.44); Carbon Dioxide 34 mmol/L (23-31); Chloride 94 mmol/L (98-107); Estimated GFR-MDRD 48; Globulin 4.3 g/dL (2.4-3.5); Glucose 253 mg/dL (83-110); Potassium 3.2 mmol/L (3.5-5.1); Protein, Total 8.3 g/dL (5.8-8.1); Sodium 140 mmol/L (136-145)
--- NOTE | 2018-07-02 00:52 | PDOC.FPRHP ---
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 Per the son, the patient woke up around his usual time at around 0630 the day before he came to the ED. However, not soon after he was up, he went and sat in his chair and took a nap which, per the son, is not like him. Then, around noon, the son reported it was quite evident that something was wrong as the patient attempted to urinate in the fireplace and again in 2 other inappropriate areas. And, per the son, when he attempted to direct the patient to the restroom, he quickly became irritated and angry with him, which again, is not the patient's normal behavior. The son reported that the patient has behaved very similarly before when his ammonia was elevated so he thought it may be best to take him to the ED to get evaluated. ED Course: lactulose 45mL - Allergies/Adverse Reactions Allergies Allergy/AdvReac Type Severity Reaction Status Date / Time Penicillins Allergy Hives Verified 04/27/18 21:10 - Home Medications Medication Instructions Recorded Confirmed Type Anastrozole 1 mg PO DAILY 07/02/18 07/02/18 History Levothyroxine Sodium 112 mcg PO DAILY 07/02/18 07/02/18 History Metolazone 2.5 mg PO ASDIR 07/02/18 07/02/18 History Potassium Chloride 20 meq PO DAILY 07/02/18 07/02/18 History Rifaximin [Xifaxan] 550 mg PO BID 07/02/18 07/02/18 History Rivaroxaban [Xarelto] 20 mg PO BID 07/02/18 07/02/18 History Spironolactone 25 mg PO BID 07/02/18 07/02/18 History Torsemide 2 tab PO BID 07/02/18 07/02/18 History - History PMHx: HFpEF, cirrhosis, pulmonary HTN, h/o PE, IDDMII, HTN, LEONARDO, hypothyroidism , obesity PSHx: R knee replacement, rosendo, thyroidectomy, Skin CA removal in 2015 FHx: DM in multiple family members Social: Lives at home in [place] with son and . Former smoker, quit ~ 37 year ago. Family ensure of how much he smoked for how long. - Review of Systems ROS unobtainable: due to mental status - Vital signs BP: 194/106 HR: 70 RR: 19 Tmax: 98.1F Pox: 97% on RA Wt: 104 kg - Physical Exam Constitutional: NAD, well developed, other (resting with eyes closed during examination) HEENT: normocephalic and atraumatic, grossly normal vision, grossly normal hearing Neck: supple, FROM Heart: normal S1/S2, pulses present, no edema, other (unable to auscultate was patient was uncooperative on exam) Lungs: CTAB, no respiratory distress, good air movement, no rales/rhonchi, no wheezing, no retractions Abdomen: non-tender, bowel sounds present, other (ascites present) Musculoskeletal: normal structure, ROM grossly normal Neurological: other (unable to assess as patient was not cooperative on exam) Skin: no rash/lesions, good turgor, no jaundice Heme/Lymphatic: no unusual bruising or bleeding, no purpura, no petechia Psychiatric: normal mood and affect, good judgment and insight, intact recent and remote memory FMR H&P: Results - Labs Result Diagrams: 07/01/18 23:51 07/02/18 06:53 Lab results: WBC 4.9 thou/uL (4.8-10.8) 07/01/18 23:51 Hgb 14.3 g/dL (14.0-18.0) 07/01/18 23:51 Hct 46.2 % (42.0-52.0) 07/01/18 23:51 MCV 98.6 fL (78.0-98.0) H 07/01/18 23:51 Plt Count 151 thou/uL (130-400) 07/01/18 23:51 Neutrophils % 61.8 % (42.0-75.0) 07/01/18 23:51 Sodium 140 mmol/L (136-145) 07/01/18 23:51 Potassium 3.2 mmol/L (3.5-5.1) L 07/01/18 23:51 Chloride 94 mmol/L (98-107) L 07/01/18 23:51 Carbon Dioxide 34 mmol/L (23-31) H 07/01/18 23:51 BUN 31 mg/dL (8.4-25.7) H 07/01/18 23:51 Creatinine 1.42 mg/dL (0.7-1.3) H 07/01/18 23:51 Glucose 253 mg/dL (83-110) H 07/01/18 23:51 Calcium 10.4 mg/dL (7.8-10.44) 07/01/18 23:51 Total Bilirubin 2.6 mg/dL (0.2-1.2) H 07/01/18 23:51 AST 24 U/L (5-34) 07/01/18 23:51 ALT 26 U/L (8-55) 07/01/18 23:51 Alkaline Phosphatase 290 U/L (40-150) H 07/01/18 23:51 Ammonia 86 umol/L (18-72) H 07/01/18 23:51 Creatine Kinase 73 U/L (30-200) 07/01/18 23:51 B-Natriuretic Peptide 52.4 pg/mL (0-100) 07/01/18 23:51 Serum Total Protein 8.3 g/dL (5.8-8.1) H 07/01/18 23:51 Albumin 4.0 g/dL (3.4-4.8) 07/01/18 23:51 Urine Ketones Negative mg/dL (Negative) 07/01/18 23:40 Urine Blood Negative (Negative) 07/01/18 23:40 Urine Nitrite Negative (Negative) 07/01/18 23:40 Ur Leukocyte Esterase Negative (Negative) 07/01/18 23:40 Urine RBC 0-3 HPF (0-3) 07/01/18 23:40 Urine WBC None Seen HPF (0-3) 07/01/18 23:40 Ur Squamous Epith Cells 0-3 HPF (0-3) 07/01/18 23:40 Urine Bacteria None Seen HPF (None Seen) 07/01/18 23:40 - Radiology Interpretation Chest x-ray Status: report reviewed by me (stable cardiomegaly) CT scan - head Status: pending FMR H&P: A/P - Problem List (1) Hepatic encephalopathy Current Visit: Yes Status: Acute Code(s): K72.90 - HEPATIC FAILURE, UNSPECIFIED WITHOUT COMA (2) (HFpEF) heart failure with preserved ejection fraction Current Visit: Yes Status: Acute Code(s): I50.30 - UNSPECIFIED DIASTOLIC ( CONGESTIVE) HEART FAILURE (3) Cirrhosis of liver with ascites Current Visit: No Status: Acute Code(s): K74.60 - UNSPECIFIED CIRRHOSIS OF LIVER; R18.8 - OTHER ASCITES Comment: suspecting from cardiac etiology vs nonalcoholic cirrhosis (4) Chronic a-fib Current Visit: No Status: Chronic Code(s): I48.2 - CHRONIC ATRIAL FIBRILLATION Comment: rate controlled, on Xarelto (5) Chronic anticoagulation Current Visit: No Status: Chronic Code(s): Z79.01 - MOLDER OPERATOR (CURRENT) USE OF ANTICOAGULANTS (6) DM2 (diabetes mellitus, type 2) Current Visit: No Status: Chronic Qualifiers: Diabetes mellitus detention insulin use: with ferry terminal agent use Diabetes mellitus complication status: with circulatory complication Diabetes mellitus complication detail: with other circulatory complications Qualified Code(s): E11.59 - Type 2 diabetes mellitus with other circulatory complications; Z79.4 - ferry terminal agent (current) use of insulin; Z79.4 - ferry terminal agent (current) use of insulin; Z79.4 - ferry terminal agent (current) use of insulin; Z79.4 - ferry terminal agent (current) use of insulin Comment: (7) HTN (hypertension) Current Visit: No Status: Chronic Code(s): I10 - ESSENTIAL (PRIMARY) HYPERTENSION Qualifiers: Hypertension type: essential hypertension Qualified Code(s): I10 - Essential (primary) hypertension (8) History of pulmonary embolism Current Visit: No Status: Chronic Code(s): Z86.711 - PERSONAL HISTORY OF PULMONARY EMBOLISM (9) Hypothyroidism Current Visit: No Status: Chronic Code(s): E03.9 - HYPOTHYROIDISM, UNSPECIFIED (10) Obesity (BMI 30.0-34.9) Current Visit: No Status: Chronic Code(s): E66.9 - OBESITY, UNSPECIFIED (11) Pulmonary hypertension Current Visit: No Status: Chronic Code(s): I27.20 - PULMONARY HYPERTENSION, UNSPECIFIED - Plan Hepatic encephalopathy - Ammonia level elevated at 86 on presentation and patient not cooperative on exam and unable to follow commands to answer questions appropriately. Family unsure of last BM but patient is supposed to be taking lactulose TID in addition to Xifaxin for hyperammonemia PPX. - s/p 45mL of lactulose in the ED. Will continue PO lactulose 30mL Q1H until patient has soft stools. Will then de-escalate to normal home dosing. - Will continue to monitor MS closely. HENRIQUE vs. CKD III - Cr slightly elevated at on rpesentation w/ an eGFR of 48. Patient's eGFR has been documented lower before but still within CKD III range similarly to recent labwork per chart review. Hypokalemia - K 3.2 on presentation. Will give 40mEq PO now and resume home dosing in the AM. Will continue to monitor & replace PRN. HfpEF - Aware, patient does not appear to be in acute exacerbation. - Will resume home meds. HTN - Aware, will resume home meds. HLD - Aware, will resume home meds. hypothyroidism - Aware, will resume home meds. chronic atrial fibrillation on xarelto - Aware, will resume home meds. IDDMII - Aware, will resume home meds in addition to moderate SSI and will get ACHS accuchecks. pulmonary HTN - Aware. h/o PE - Aware, per family was many years ago. Will continue PPx w/ xarelto. FMR H&P: Upper Level - Pertinent history Patient is a 83 yo male here for acute altered mentation. Patient has a history of cirrhosis, hepatic encephalopathy, HFpEF, insulin dependent diabetes, atrial fibrillation. He lives with his son who takes care of patient and patients . Son reports that on the day of presentation to the ER, patient was acting more aggressive towards patients son, and doing things like urinating in the fireplace. Son is not sure if patient took his medications but patient is normally compliant with medications. Not sure when last BM was. He had a similar event in Apr 2018 and was hospitalized. Patient does not give any information during interview and he is curled up sleeping and able to rouse, but not answering questions. - Pertinent findings 194/106 HR: 70 RR: 19 Temp: 98.1 97% on RA GEN: arousable, but not answering questions CARD: RRR, exam limited by patients noncompliance PULM: CTAB CXR: stable cardiomegaly Ammonia: 86 BNP: 52 K: 3.0 - Plan Date/Time: 07/02/18 0052 Ryne Whittaker DO, have evaluated this patient and agree with findings/plan as outlined by compliance intern resident. Pertinent changes/additions are listed here. #hepatic encephalopathy -will plan to give lactulose hourly until patient is able to have a BM, then titrate down -continue other home medications #hypokalemia -replace and recheck #HENRIQUE on CKD -continue to trend #HFpEF #HTN -resume home meds -may need to add prn doses if he remains elevated
[2018-07-02] MEDS ORDERED: Ondansetron PF 4 MG/2 ML Vial IVP PRN (03:14)
[2018-07-02] MEDS ORDERED: Ondansetron ODT 4 MG TAB SL PRN (03:14)
[2018-07-02] MEDS ORDERED: Potassium Chloride 20 MEQ TAB PO SCH (03:26)
[2018-07-02] MEDS ORDERED: HumaLOG 300 UNITS/3 ML VIAL SC PRN (03:26)
[2018-07-02] MEDS ORDERED: Acetaminophen 325 MG TAB PO PRN (03:26)
[2018-07-02] MEDS ORDERED: Dextrose 5% in Water 1,000 ML IV PRN (03:26)
[2018-07-02] MEDS ORDERED: Dextrose 50% Abboject 50 ML SYRINGE SLOW IVP PRN (03:26)
[2018-07-02] MEDS ORDERED: Metolazone 2.5 MG TAB PO SCH (03:26)
[2018-07-02] MEDS ORDERED: Ondansetron ODT 4 MG TAB PO PRN (03:26)
[2018-07-02 03:36] VITALS: BMI 33.1
[2018-07-02 07:55] LABS: Anion Gap 14 mmol/L (10-20); BUN (Urea Nitrogen) 30 mg/dL (8.4-25.7); Calc. Creatinine Clearance 68 mL/min (70-130); Calcium 10.5 mg/dL (7.8-10.44); Carbon Dioxide 33 mmol/L (23-31); Chloride 97 mmol/L (98-107); Estimated GFR-MDRD 55; Glucose 283 mg/dL (83-110); Sodium 141 mmol/L (136-145)
[2018-07-02] MEDS: Levothyroxine Sodium 112 MCG TAB PO SCH (08:09)
[2018-07-02] MEDS: Anastrozole 1 MG TAB PO SCH (08:09)
[2018-07-02] MEDS: Rifaximin 550 MG TAB PO SCH ×2 (08:09→20:32)
[2018-07-02] MEDS: Spironolactone 25 MG TAB PO SCH ×2 (08:09→20:32)
--- NOTE | 2018-07-02 08:44 | RAD ---
SINGLE VIEW OF THE CHEST: COMPARISON: 05/05/2018. HISTORY: Altered mental status and confusion. FINDINGS: A single view of the chest shows an enlarged but stable cardiomediastinal silhouette. Increased inte rstitial lung markings are present. There is no evidence of consolidation, mass, or pleural effusion . IMPRESSION: Stable cardiomegaly. POS: [facility]
[2018-07-02] MEDS ORDERED: Prevnar 13-Val Conj/PF 0.5 ML SYRINGE IM ONE (09:00)
--- NOTE | 2018-07-02 11:03 | CT ---
PRELIMINARY REPORT/[facility]/EMERGENCY AFTER HOURS PROCEDURE: EXAM: CT Head Without Contrast EXAM DATE/TIME: 07/02/2018 12:13 AM CLINICAL HISTORY: 83 years old, male; Signs and symptoms; Altered mental status/memory loss; Confusion or disorientatio n; Patient HX: Ams/confusion TECHNIQUE: Axial computed tomography images of the head/brain without contrast. COMPARISON: No relevant prior studies available. FINDINGS: Brain: No acute intracranial hemorrhage or mass effect. There is relatively symmetrical decreased attenuation in the periventricular white matter, likely fro m microvascular disease. No definite acute infarct by CT. MRI could be more sensitive/specific for detection, as clinically di rected. Ventricles: Ventricle size is normal for age. Bones/joints: No definite acute skull fracture. Sinuses: Prominent opacity/fluid in the right aspect of the sphenoid sinus. 16 mm retention cyst or p olyp in the right maxillary sinus. Included paranasal sinuses otherwise appear essentially clear. Mastoid air cells: No significant acute finding. Vasculature: Vascular calcifications noted in the internal carotid and vertebral basilar systems. IMPRESSION: 1. No acute intracranial bleed or mass effect. 2. Changes of microvascular disease. 3. No definite acute infarct by CT, see above. 4. Other findings discussed above. Thank you for allowing us to participate in the care of your patient. Dictated and Authenticated by: Saturnino Shen MD 07/02/2018 12:35 AM Central Time ([place] & [place]) FINAL REPORT EMERGENT AFTER HOURS CT BRAIN WITHOUT CONTRAST: COMPARISON: 05/03/2018. FINDINGS/IMPRESSION: I agree with the findings and impression given in the preliminary report per [facility] physician. No adelaida dence of acute intracranial abnormality. POS: [facility]
[2018-07-02] MEDS: HumaLOG 300 UNITS/3 ML VIAL SC PRN ×2 (12:12→17:03)
[2018-07-02] MEDS ORDERED: Rivaroxaban 15 MG TAB PO SCH (18:00)
[2018-07-02] MEDS ORDERED: Insulin Glargine 20 UNITS in Pre-Filled Syringe 1 EACH SC SCH (21:00)
[2018-07-02] MEDS ORDERED: Torsemide 20 MG TAB PO SCH (21:00)
[2018-07-03] MEDS: HumaLOG 300 UNITS/3 ML VIAL SC PRN ×2 (05:29→11:58)
--- NOTE | 2018-07-03 06:40 | PDOC.FM ---
- Subjective Subjective: Patient states that he feels somewhat confused this AM and attributes it to his liver, but is alert to person, place, and year. Denies any pain. - Objective Vital Signs & Weight: Vital Signs (12 hours) Temp Pulse Resp BP Pulse Ox 07/03/18 04:29 98.2 F 60 18 118/65 96 07/02/18 23:30 98.1 F 69 19 123/68 93 L 07/02/18 20:00 97.5 F L 61 18 111/54 L 98 Weight Weight 100.244 kg I&O: 07/01/18 07/02/18 07/03/18 05:59 06:59 06:59 Intake Total 1210 Output Total 850 Balance 360 Result Diagrams: 07/01/18 23:51 07/03/18 07:42 Phys Exam - Physical Examination Constitutional: NAD Respiratory: no wheezing, clear to auscultation bilateral Cardiovascular: RRR, no significant murmur Gastrointestinal: soft, non-tender, positive bowel sounds +distention Musculoskeletal: pulses present trace pitting edema BLE Neurological: moves all 4 limbs Psychiatric: normal affect, A&O x 3 Skin: normal turgor, cap refill <2 seconds Deviation from normal: erythema/chronic venous stasis rash BLE Dx/Plan (1) Hepatic encephalopathy Code(s): K72.90 - HEPATIC FAILURE, UNSPECIFIED WITHOUT COMA Status: Acute (2) Cirrhosis of liver with ascites Code(s): K74.60 - UNSPECIFIED CIRRHOSIS OF LIVER; R18.8 - OTHER ASCITES Status : Chronic (3) (HFpEF) heart failure with preserved ejection fraction Code(s): I50.30 - UNSPECIFIED DIASTOLIC (CONGESTIVE) HEART FAILURE Status: Chronic (4) Chronic a-fib Code(s): I48.2 - CHRONIC ATRIAL FIBRILLATION Status: Chronic (5) Chronic anticoagulation Code(s): Z79.01 - HALF-WAY (CURRENT) USE OF ANTICOAGULANTS Status: Chronic (6) DM2 (diabetes mellitus, type 2) Status: Chronic Qualifiers: Diabetes mellitus half-way insulin use: with termite treater use Diabetes mellitus complication status: with circulatory complication Diabetes mellitus complication detail: with other circulatory complications Qualified Code(s): E11.59 - Type 2 diabetes mellitus with other circulatory complications; Z79.4 - long-term (current) use of insulin; Z79.4 - terminal operator (current) use of insulin; Z79.4 - long-term (current) use of insulin; Z79.4 - long-term (current) use of insulin (7) HTN (hypertension) Code(s): I10 - ESSENTIAL (PRIMARY) HYPERTENSION Status: Chronic Qualifiers: Hypertension type: essential hypertension Qualified Code(s): I10 - Essential (primary) hypertension (8) History of pulmonary embolism Code(s): Z86.711 - PERSONAL HISTORY OF PULMONARY EMBOLISM Status: Chronic (9) Hypothyroidism Code(s): E03.9 - HYPOTHYROIDISM, UNSPECIFIED Status: Chronic (10) Obesity (BMI 30.0-34.9) Code(s): E66.9 - OBESITY, UNSPECIFIED Status: Chronic (11) Pulmonary hypertension Code(s): I27.20 - PULMONARY HYPERTENSION, UNSPECIFIED Status: Chronic - Plan Plan: Acute Hepatic Encephalopathy - Ammonia level elevated at 86 on presentation and patient not cooperative on exam and unable to follow commands to answer questions appropriately. Family unsure of last BM but patient is supposed to be taking lactulose TID in addition to Xifaxin for hyperammonemia PPX. - s/p 45mL of lactulose in the ED. - 7 stools yesterday - Resume home regimen lactulose TID, monitor stools. Require 3 stools daily - Will continue to monitor MS closely, appears to be at baseline today. HENRIQUE vs. CKD III - Cr slightly elevated at on presentation w/ an eGFR of 48. Patient's eGFR has been documented lower before but still within CKD III range similarly to recent labwork per chart review. Hypokalemia - K 3.2 on presentation. -Will continue to monitor & replace PRN. HFpEF - Aware, patient does not appear to be in acute exacerbation. - Will resume home meds. HTN - Aware, will resume home meds. HLD - Aware, will resume home meds. Hypothyroidism - Aware, will resume home meds. Chronic Atrial Fibrillation on xarelto - Aware, will resume home meds. IDDMII - Aware, will resume home meds in addition to moderate SSI and will get ACHS accuchecks. Pulmonary HTN - Aware. H/o PE - Aware, per family was many years ago. Will continue PPx w/ xarelto. Code status: Full PCP: Nito Dispo: Likely tomorrow, if patient has 3 stools today on lactulose TID regimen
[2018-07-03] MEDS ORDERED: Potassium Chloride 20 MEQ TAB PO SCH ×2 (08:00→09:30)
[2018-07-03 08:02] VITALS: BP 146/72; TEMP 97.8
[2018-07-03 08:03] LABS: Anion Gap 11 mmol/L (10-20); BUN (Urea Nitrogen) 25 mg/dL (8.4-25.7); Calc. Creatinine Clearance 59 mL/min (70-130); Calcium 10.3 mg/dL (7.8-10.44); Carbon Dioxide 35 mmol/L (23-31); Chloride 97 mmol/L (98-107); Estimated GFR-MDRD 49; Glucose 203 mg/dL (83-110); Potassium 3.3 mmol/L (3.5-5.1); Sodium 140 mmol/L (136-145)
[2018-07-03] MEDS: Rifaximin 550 MG TAB PO SCH (08:33)
[2018-07-03] MEDS: Anastrozole 1 MG TAB PO SCH (08:34)
[2018-07-03] MEDS: Levothyroxine Sodium 112 MCG TAB PO SCH (08:35)
[2018-07-03] MEDS: Spironolactone 25 MG TAB PO SCH (08:36)
[2018-07-03] MEDS ORDERED: Insulin Glargine 20 UNITS in Pre-Filled Syringe 1 EACH SC SCH (09:00)
[2018-07-03] MEDS ORDERED: Rivaroxaban 15 MG TAB PO SCH (09:00)
--- NOTE | 2018-07-03 09:56 | HP ---
ADDENDUM: Please see the history and physical done by Dr. Kathleen Moore, for which I agree. The patient was seen, evaluated, and discussed with the residents by bedside. HISTORY OF PRESENT ILLNESS: This is an 83-year-old gentleman, who is being admitted for hepatic encephalopathy. It sounds like maybe was not taking his home lactulose. Has cirrhosis from longstanding right-sided congestive heart failure with preserved ejection fraction. His ammonia level was extremely high and intermittently confused. He had not had a bowel movement in a while. No fever or anything like that. PAST MEDICAL HISTORY: Per the residents history and physical. PAST SURGICAL HISTORY: Per the residents history and physical. FAMILY HISTORY: Per the residents history and physical. SOCIAL HISTORY: Per the residents history and physical. MEDICATIONS: Per the residents history and physical. REVIEW OF SYSTEMS: Per the residents history and physical. PHYSICAL EXAMINATION: VITAL SIGNS: Initial blood pressure a little bit elevated, but came down. GENERAL: No apparent distress. He is slightly confused. No respiratory distress. HEENT: Anicteric. Moist mucosa. CHEST: Clear. HEART: Regular rate and rhythm. ABDOMEN: Currently benign, maybe just slight ascites. EXTREMITIES: Show no edema. LABORATORY DATA: Lab is pretty benign. Potassium is a little bit low at 3.0, bicarb a little bit high at 33, his sugar is high at 283, and ammonia level was elevated at 86. Alkaline phosphatase at 290 was elevated. ASSESSMENT: 1. Hepatic encephalopathy. 2. Preserved ejection fraction, heart failure, stable. 3. Cirrhosis. 4. Chronic atrial fibrillation. 5. Current anticoagulation. 6. Diabetes. 7. Hypertension. 8. Hypothyroidism. PLAN: At this point in time, I am going to give him lactulose, will be more aggressive and talked about making sure that we are getting bowel movements at least 3 to 4 a day as an outpatient and increased lactulose if that happens again. We will follow his mental state. We will continue other home medications in the meantime including a sliding scale insulin right now and we will continue home Xifaxan as well. Job ID: [id number]
--- NOTE | 2018-07-03 12:28 | PRG ---
DATE OF SERVICE: 07/03/2018 SUBJECTIVE: Mr. Bell is an 83-year-old white male with a history of cirrhosis secondary to heart failure. He has episodes of elevated ammonia levels, which exacerbated his hepatic encephalopathy. He was confused, brought in by his family and found to have an elevated ammonia level consistent with hepatic encephalopathy. We are putting back on lactulose at higher dosages and he has had 7 bowel movements in the last 24 hours. His sensorium is much improved. He is awake, alert, and oriented. Other labs, his CBC is normal. His chemistries show numbers consistent with inadequately controlled type 2 diabetes. In the event, he has improved clinically. He will likely be discharged today to continue with his lactulose in a dose sufficient to maintain 3 bowel movements or more per day. Job ID: [id number]
--- NOTE | 2018-07-04 03:38 | DIS ---
DATE OF ADMISSION: 07/02/2018 DATE OF DISCHARGE: 07/03/2018 RESIDENT: Kenyatta Mcdowell MD ADMITTING ATTENDING: Berhane Orozco MD DISCHARGE ATTENDING: Jimmy Leavitt MD CONSULTS: None. PROCEDURES: 1. Brain CT, 07/01/2018, no acute intracranial bleed or mass effect. Changes of microvascular disease. No definite acute infarct by CT. 2. Chest x-ray, 07/01/2018, stable cardiomegaly. PRIMARY DIAGNOSIS: Acute hepatic encephalopathy. SECONDARY DIAGNOSES: 1. Acute kidney injury on chronic kidney disease 3. 2. Hypokalemia. 3. Heart failure with preserved ejection fraction. 4. Hypertension. 5. Hyperlipidemia. 6. Hypothyroidism. 7. Chronic atrial fibrillation. 8. Insulin-dependent diabetes mellitus type 2. 9. Pulmonary hypertension. 10. History of pulmonary embolism. DISCHARGE MEDICATIONS: 1. Lactulose 30 g oral t.i.d. and adjust dose as necessary to have 3 bowel movements daily. 2. Metolazone 2.5 mg p.o. as directed. 3. Torsemide 2 tabs oral b.i.d. 4. Xarelto 20 p.o. b.i.d. 5. Anastrozole 1 mg oral daily. 6. Spironolactone 25 mg p.o. b.i.d. 7. Rifaximin 550 mg oral b.i.d. 8. Potassium chloride 20 mEq p.o. daily. 9. Levothyroxine 112 mcg p.o. daily. HISTORY OF PRESENT ILLNESS/HOSPITAL COURSE: This is an 83-year-old male with past medical history significant for cirrhosis secondary to heart failure with preserved ejection fraction, insulin-dependent diabetes mellitus type 2, hypothyroidism and atrial fibrillation, who was brought to the ED by his due to acutely worsening mentation, confusion, somnolence, and agitation. Per the son, the patient woke up around his usual time at 6:30 the day before he came to the emergency department. However, he went and sat in his chair and took a nap, which per the son, was unusual. He started urinating in inappropriate areas. Per the son, when he attempted to direct the patient to the bathroom, he quickly became irritated and angry, which is not the patient's normal behavior. The son reports that the patient has had behaved similarly in the past when his ammonia was elevated and they brought him to the ED to get evaluated in the ED, received lactulose 45 mL. The patient then got CT head in the ED, which showed no acute changes. The patient was restarted on lactulose, ammonia was elevated at 86 on presentation. The patient's mentation improved. He had 7 bowel movements yesterday with lactulose. Lactulose was decreased to t.i.d. The patient was instructed to adjust the number of doses as necessary to make sure he has 3 stools daily. The patient's mentation seems to be back at baseline when he was discharged. He is oriented to person, place, and year (not month or date). HENRIQUE on CKD3. The patient's creatinine was slightly elevated on presentation, was within his normal range due to recent lab work per chart review. Hypokalemia. The patient had a potassium of 2.2 on presentation. The potassium was replaced. The patient was continued on home medication regimen at discharge. The patient may need followup potassium monitoring. Heart failure with preserved ejection fraction. The patient did not appear to be in acute exacerbation. Home medications were resumed. DISPOSITION: Stable. DISCHARGE INSTRUCTIONS: 1. Location: Home. 2. Diet: Diabetic diet, fluid-restricted diet to 2 L daily, heart healthy diet , low sodium diet. 3. Activity: As tolerated. 4. Followup: Follow up with PCP, Dr. Beauchamp within 1 week. Recommend recheck of potassium. Job ID: [id number] MTDD
[2018-07-05] MEDS ORDERED: Metolazone 2.5 MG TAB PO SCH (09:00)
--- NOTE | 2018-07-08 11:57 | EKG ---
Test Reason : Blood Pressure : / mmHG Vent. Rate : 073 BPM Atrial Rate : 048 BPM P-R Int : 000 ms QRS Dur : 118 ms QT Int : 418 ms P-R-T Axes : 000 -55 075 degrees QTc Int : 460 ms Atrial fibrillation Left anterior fascicular block Possible Anterior infarct , age undetermined Abnormal ECG Confirmed by HANNAH WATTS DO ([id number]), communications editor WICHO ZELAYA ([id number]) on 07/08/2018 11:56:53 AM Referred By: Confirmed By:HANNAH WATTS DO
== END 2018-07-03 12:42 | disposition home or self-care (01) ==
LOC: ERS 22:59 → T4-A 07-02 01:49
PROVIDERS: ADMIT Family Medicine; ATTEND Family Medicine
DX: K72.00 Acute and subacute hepatic failure without coma (principal); I13.0 Hypertensive heart and chronic kidney disease with heart failure and stage 1 through stage 4 chronic kidney disease, or unspecified chronic kidney disease; E11.22 Type 2 diabetes mellitus with diabetic chronic kidney disease; N18.3 Chronic kidney disease, stage 3 (moderate); I50.30 Unspecified diastolic (congestive) heart failure; N17.9 Acute kidney failure, unspecified; K74.69 Other cirrhosis of liver; R18.8 Other ascites; G47.33 Obstructive sleep apnea (adult) (pediatric); E89.0 Postprocedural hypothyroidism; I48.2 Chronic atrial fibrillation; E78.5 Hyperlipidemia, unspecified; E87.6 Hypokalemia; I27.20 Pulmonary hypertension, unspecified; E66.9 Obesity, unspecified; Z68.31 Body mass index [BMI] 31.0-31.9, adult; Z87.891 Personal history of nicotine dependence; Z86.711 Personal history of pulmonary embolism; Z79.01 Long term (current) use of anticoagulants; Z79.4 Long term (current) use of insulin; Z79.811 Long term (current) use of aromatase inhibitors; Z79.899 Other long term (current) drug therapy; Z88.0 Allergy status to penicillin
CPT/HCPCS: 51701; 70450; 71045; 80048 ×2; 82140 ×2; 82550; 82962 ×2; 83880; 84484; 87040 ×2; 93005; 99285; G0378 ×2; 36415; 36416; 80053; 81003; 81015; 84443; 85025; J1825

== ENCOUNTER 2018-09-04 20:13 | Observation (INO) | payer MEDICARE, BC ==
[2018-09-04 20:56] LABS: #Basophils 0.1 thou/uL (0.0-0.2); #Eosinphils 0.9 thou/uL (0.0-0.7); #Lymphocytes 1.5 thou/uL (1.20-3.40); #Monocytes 0.4 thou/uL (0.11-0.59); #Neutrophils 3.5 thou/uL (1.40-6.50); %Eosinophils 14.8 % (0.0-10.0); %Lymphocytes 23.5 % (21.0-51.0); %Neutrophils 54.8 % (42.0-75.0); Hemoglobin 14.8 g/dL (14.0-18.0); Mean Corpuscular HGB CONC 34.5 g/dL (32.0-36.0); Mean Corpuscular Hemoglobin 34.1 pg (27.0-31.0); Mean Corpuscular Volume 98.8 fL (78.0-98.0); Mean Platelet Volume 7.3 fL (7.4-10.4); Platelet Count 228 thou/uL (130-400); RBC Distribution Width 15.9 % (11.5-14.5); Red Blood Cell (RBC) Count 4.34 mill/uL (4.70-6.10); White Blood Cell (WBC) Count 6.4 thou/uL (4.8-10.8)
--- NOTE | 2018-09-04 21:10 | RAD ---
Portable frontal chest radiograph: 09/04/2018 COMPARISON: 07/02/2018 HISTORY: Liver disease, altered mental status FINDINGS: Stable prominence of the cardiac silhouette. Stable increased linear interstitial density. No pneumothorax, pleural fluid, focal consolidation, or alveolar edema. IMPRESSION: Stable appearance of the chest-no acute findings.
[2018-09-04 21:15] LABS: ALT (SGPT) 124 U/L (8-55); AST (SGOT) 93 U/L (5-34); Albumin 4.1 g/dL (3.4-4.8); Alkaline Phosphatase 445 U/L (40-150); BUN (Urea Nitrogen) 68 mg/dL (8.4-25.7); Bilirubin, Total 2.1 mg/dL (0.2-1.2); CK (CPK) 132 U/L (30-200); Calc. Creatinine Clearance 0 mL/min (70-130); Calcium 10.8 mg/dL (7.8-10.44); Estimated GFR-MDRD 33; Globulin 4.6 g/dL (2.4-3.5); Glucose 297 mg/dL (83-110); Protein, Total 8.7 g/dL (5.8-8.1)
[2018-09-04 21:25] LABS: Anion Gap 20 mmol/L (10-20); Carbon Dioxide 34 mmol/L (23-31); Chloride 86 mmol/L (98-107); Potassium 3.3 mmol/L (3.5-5.1); Sodium 137 mmol/L (136-145)
[2018-09-04 21:27] LABS: Bilirubin Negative (Negative); Blood, Urine Negative (Negative); Clarity CLEAR (Clear); Glucose, Urine (Dipstick) Negative (Negative); Leukocyte Negative (Negative); Nitrite Negative (Negative); Protein, Urine (Dipstick) Negative (Neg-Trace); Specific Gravity, Urine 1.011 (1.002-1.036)
--- NOTE | 2018-09-04 21:28 | CT ---
Head CT without contrast 09/04/2018: COMPARISON: 07/02/2018 HISTORY: Altered mental status, liver disease TECHNIQUE: Axial CT imaging at 5 mm intervals from vertex through skull base without contrast FINDINGS: There is partial opacification of the sphenoid sinus on the right, stable. No acute osseous abnormality is noted. There is stable mild diffuse cerebral volume loss with associated prominence of the CSF containing spaces. Mild periventricular hypodensity suggests stable small vessel disease. No intracranial hemorrhage, midline shift, or mass effect. IMPRESSION: No acute findings.
[2018-09-04 21:37] LABS: CKMB 1.8 ng/mL (0-6.6)
[2018-09-04 23:41] LABS: Troponin I 0.021 ng/mL (< 0.028)
[2018-09-04] MEDS ORDERED: Ondansetron PF 4 MG/2 ML Vial IVP PRN (23:42)
[2018-09-04] MEDS ORDERED: Dextrose 50% Abboject 50 ML SYRINGE SLOW IVP PRN (23:42)
[2018-09-04] MEDS ORDERED: HumaLOG 300 UNITS/3 ML VIAL SC PRN (23:42)
[2018-09-04] MEDS ORDERED: Dextrose 5% in Water 1,000 ML IV PRN (23:42)
[2018-09-04] MEDS ORDERED: Ondansetron ODT 4 MG TAB PO PRN (23:42)
--- NOTE | 2018-09-04 23:54 | PDOC.FPRHP ---
- History of Present Illness Chief Complaint: Weakness History of Present Illness: Mr. Bell presents for eval of weakness and falls family at baseline reports pt is more confused than usual, the following hx is obtained from pt, family, and medical records Recently he has been falling, feeling weak, confused, and unable to control his bladder. Denies focal weakness, syncope, SOB, seizure, palpitations, LEDEZMA, or chest pain. Falls reported as controlled, no trauma, or LOC. Unable to control bladder with urinary frequency, denies dysuria or discharge. pt follows with cardiology (hung) GI (oxana), pulm (guerline) taking medications as prescribed. Lactulose TID 40ml with less than 3 BMs a day. Very similar presentation 2 months ago ED Course: CBC, CMP, trop, TSH, ammonia - Allergies/Adverse Reactions Allergies Allergy/AdvReac Type Severity Reaction Status Date / Time Penicillins Allergy Hives Verified 09/05/18 02:44 - Home Medications Medication Instructions Recorded Confirmed Type Anastrozole 1 mg PO DAILY 07/02/18 09/05/18 History Levothyroxine Sodium 112 mcg PO DAILY 07/02/18 09/05/18 History Potassium Chloride 20 meq PO DAILY 07/02/18 09/05/18 History Rifaximin [Xifaxan] 550 mg PO BID 07/02/18 09/05/18 History Rivaroxaban [Xarelto] 20 mg PO BID 07/02/18 09/05/18 History Spironolactone 25 mg PO BID 07/02/18 09/05/18 History Torsemide 1 tab PO TID 07/02/18 09/05/18 History Insulin Aspart [Novolog Flexpen] 20 unit SQ TID 09/05/18 09/05/18 History Insulin Degludec [Tresiba 20 unit SQ BID 09/05/18 09/05/18 History Flextouch U-200] Lactulose 30 gm PO QID 09/05/18 09/05/18 History Metolazone [Zaroxolyn] 2.5 mg PO DAILY 09/05/18 09/05/18 History - History PMHx: HFpEF, cirrhosis, pulmonary HTN, h/o PE, IDDMII, HTN, LEONARDO, hypothyroidism , obesity PSHx: R knee replacement, rosendo, thyroidectomy, Skin CA removal in 2016 FHx:DMII Social: Lives at home in [place] with son and . Former smoker, quit ~ 37 year ago. Family ensure of how much he smoked for how long. - Review of Systems General: denies: fever/chills, weight/appetite/sleep changes Eyes: denies: vision changes Respiratory: denies: cough, shortness of breath Cardiovascular: reports: edema. denies: chest pain, palpitation Gastrointestinal: denies: nausea, vomiting, diarrhea, constipation Genitourinary: reports: incontinence. denies: dysuria, polyuria Skin: denies: rashes, lesions, jaundice Musculoskeletal: denies: pain, tenderness Neurological: reports: weakness (non focal). denies: numbness, syncope, seizure - Vital signs BP: 123/66 HR: 69 RR: 18 Tmax: 98.3 Pox: 95% on RA - Physical Exam Constitutional: NAD, awake, alert and oriented HEENT: normocephalic and atraumatic, grossly normal vision, grossly normal hearing, MMM Neck: supple, trachea midline Chest: no-tender to palpation, no lesions Heart: RRR, other (murmur and distant heart sounds) Lungs: CTAB, no respiratory distress, good air movement Abdomen: soft, non-tender, bowel sounds present, other (distended non tender abdomen, Hepato jugular reflex present) Musculoskeletal: normal structure, normal tone Neurological: no focal deficit Skin: no rash/lesions, good turgor Heme/Lymphatic: other (bruising present) Psychiatric: normal mood and affect FMR H&P: Results - Labs Result Diagrams: 09/05/18 02:49 09/05/18 02:49 Lab results: WBC 6.4 thou/uL (4.8-10.8) 09/04/18 20:41 Hgb 14.8 g/dL (14.0-18.0) 09/04/18 20:41 Hct 42.8 % (42.0-52.0) 09/04/18 20:41 MCV 98.8 fL (78.0-98.0) H 09/04/18 20:41 Plt Count 228 thou/uL (130-400) 09/04/18 20:41 Neutrophils % 54.8 % (42.0-75.0) 09/04/18 20:41 Sodium 137 mmol/L (136-145) 09/04/18 20:41 Potassium 3.3 mmol/L (3.5-5.1) L 09/04/18 20:41 Chloride 86 mmol/L (98-107) L 09/04/18 20:41 Carbon Dioxide 34 mmol/L (23-31) H 09/04/18 20:41 BUN 68 mg/dL (8.4-25.7) H 09/04/18 20:41 Creatinine 1.94 mg/dL (0.7-1.3) H 09/04/18 20:41 Glucose 297 mg/dL (83-110) H 09/04/18 20:41 Calcium 10.8 mg/dL (7.8-10.44) H 09/04/18 20:41 Total Bilirubin 2.1 mg/dL (0.2-1.2) H 09/04/18 20:41 AST 93 U/L (5-34) H 09/04/18 20:41 ALT 124 U/L (8-55) H 09/04/18 20:41 Alkaline Phosphatase 445 U/L (40-150) H 09/04/18 20:41 Ammonia 68 umol/L (18-72) 09/04/18 20:41 Creatine Kinase 132 U/L (30-200) 09/04/18 20:41 CK-MB (CK-2) 1.8 ng/mL (0-6.6) 09/04/18 20:41 Serum Total Protein 8.7 g/dL (5.8-8.1) H 09/04/18 20:41 Albumin 4.1 g/dL (3.4-4.8) 09/04/18 20:41 Urine Ketones Negative mg/dL (Negative) 09/04/18 21:17 Urine Blood Negative (Negative) 09/04/18 21:17 Urine Nitrite Negative (Negative) 09/04/18 21:17 Ur Leukocyte Esterase Negative (Negative) 09/04/18 21:17 FMR H&P: A/P - Problem List (1) Acute on chronic diastolic ACC/AHA stage C congestive heart failure Current Visit: No Status: Acute Code(s): I50.33 - ACUTE ON CHRONIC DIASTOLIC (CONGESTIVE) HEART FAILURE (2) Demand ischemia Current Visit: No Status: Acute Code(s): I24.8 - OTHER FORMS OF ACUTE ISCHEMIC HEART DISEASE (3) Hypokalemia Current Visit: No Status: Acute Code(s): E87.6 - HYPOKALEMIA (4) Chronic anticoagulation Current Visit: No Status: Chronic Code(s): Z79.01 - INFORMATION SYSTEMS SUPERVISOR (CURRENT) USE OF ANTICOAGULANTS (5) Cirrhosis of liver with ascites Current Visit: No Status: Chronic Code(s): K74.60 - UNSPECIFIED CIRRHOSIS OF LIVER; R18.8 - OTHER ASCITES Comment: suspecting from cardiac etiology vs nonalcoholic cirrhosis (6) DM2 (diabetes mellitus, type 2) Current Visit: No Status: Chronic Qualifiers: Diabetes mellitus longwall headgate operator insulin use: with alf use Diabetes mellitus complication status: with circulatory complication Diabetes mellitus complication detail: with other circulatory complications Qualified Code(s): E11.59 - Type 2 diabetes mellitus with other circulatory complications; Z79.4 - manager long term care (current) use of insulin; Z79.4 - manager long term care (current) use of insulin; Z79.4 - intermediate (current) use of insulin; Z79.4 - manager long term care (current) use of insulin Comment: (7) HTN (hypertension) Current Visit: No Status: Chronic Code(s): I10 - ESSENTIAL (PRIMARY) HYPERTENSION Qualifiers: Hypertension type: essential hypertension Qualified Code(s): I10 - Essential (primary) hypertension (8) History of pulmonary embolism Current Visit: No Status: Chronic Code(s): Z86.711 - PERSONAL HISTORY OF PULMONARY EMBOLISM (9) Hypothyroidism Current Visit: No Status: Chronic Code(s): E03.9 - HYPOTHYROIDISM, UNSPECIFIED (10) Physical deconditioning Current Visit: Yes Status: Acute Code(s): R53.81 - OTHER MALAISE - Plan Deconditioning with weakness and falls - multiple co-morbid conditions and admission for similar complaints - TSH wnl, anemia at baseline, trop ind->downtrended - recent echo HFpEF, orthostatics pending - CT brain wnl - CM, rehab screen pending Cirrhosis with ascites - labs near baseline, follows with Dr. Palacio - ammonia wnl, continue home meds HFpEF - echo w/in 1 year - continue home meds, avoid aggressive volume resusc HTN - aware, continue home meds DMII - continue home meds - mild SSI, ACHS glucose HLD - aware, continue home meds hx of PE - aware, continue anticoagulation - saturating well on RA, not tachy Hypothyroid - TSH wnl, continue home meds hypokalemia - replace, continue home meds - monitor CMP code: full PCP: annie ppx: home anti-coag Dispo: admit to medical for monitoring, screen for rehab, consider snf FMR H&P: Upper Level - Pertinent history 83 yo male here for increased agitation over the past couple days. Son provides some of history as pt is poor historian. Assoc urinary incontinence today occasional falls which he describes as controlled. Hx includes liver disease , CKD3, HFpEF, HTN, HLD, hypothyroid, chronic afib, IDDM, pulm HTN, Hx of PE. He has a history of coming to ER for similar complaints. Most recently 2 months ago where he was found to have elevated ammonia. He currently reports taking lactulose 60ml 4 times a day and has BM 2-3 times a day. - Pertinent findings 129/81 HR: 68 TEMP: 98.5 RR: 15 GEN: NAD, AOx3, pleasant CARD: 3/6 systolic murmur, RRR PULM: CTAB ABD: BSx4, distended with no tenderness or spider angiomata, no fluid wave noted Labs reviewed, normal ammonia; hypokalemia mild, Cr1.94, trop 0.039 to 0.021 CXR and CThead negative - Plan Date/Time: 09/04/182349 I, Ryne Valverde DO, have evaluated this patient and agree with findings/plan as outlined by program management intern resident. Pertinent changes/additions are listed here. #encephalopathy, suspected heaptic -very similar presentation to previous visit 2 months ago, except normal ammonia today -will continue to trend mental status, though it appears he is improved per family -suspect he would benefit from placement in SNF for rehab, deconditioning #deconditioning #indet trops -will trend, pt has hx of this level of trops in prev visits which trend down #HFpEF -continue on home meds #IDDM #HTN #HLD Addendum - Attending - Attending Attestation Date/Time: 09/04/18 I personally evaluated the patient and discussed the management with Dr. Garduno and Dr. Valverde I agree with the History, Examination, Assessment and Plan documented above with any addition or exceptions noted below. 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 Family present at bedside. History obtained from patient and family. Patient has been progressively weak with more frequent confusion and falls. Has increased urinary incontinence. Recently admitted for similar symptoms. Will obs patient overnight and rule out infectious cause, cardiac, and hypovolemic cause. Symptoms likely related to ESLD with progress renal disease and worsening 3rd spacing. Unable to have bowel movements despite increasing lactulose. IVFs with albumin as needed. Trend labs. Monitor on tele. Head imaging as needed if becomes confused, LOC, or balance issues. ABrayMD
[2018-09-05 00:51] VITALS: BMI 29.9
[2018-09-05 02:58] LABS: #Basophils 0.1 thou/uL (0.0-0.2); #Lymphocytes 1.4 thou/uL (1.20-3.40); #Monocytes 0.4 thou/uL (0.11-0.59); #Neutrophils 3.4 thou/uL (1.40-6.50); %Basophils 1.3 % (0.0-1.0); %Eosinophils 16.1 % (0.0-10.0); %Lymphocytes 21.8 % (21.0-51.0); %Monocytes 6.1 % (0.0-10.0); %Neutrophils 54.7 % (42.0-75.0); Hemoglobin 14.2 g/dL (14.0-18.0); Mean Corpuscular HGB CONC 33.9 g/dL (32.0-36.0); Mean Corpuscular Hemoglobin 33.3 pg (27.0-31.0); Mean Corpuscular Volume 98.4 fL (78.0-98.0); Mean Platelet Volume 7.2 fL (7.4-10.4); Platelet Count 211 thou/uL (130-400); Red Blood Cell (RBC) Count 4.26 mill/uL (4.70-6.10); White Blood Cell (WBC) Count 6.3 thou/uL (4.8-10.8)
[2018-09-05 03:22] LABS: Troponin I 0.028 ng/mL (< 0.028)
[2018-09-05 03:27] LABS: ALT (SGPT) 114 U/L (8-55); AST (SGOT) 81 U/L (5-34); Alkaline Phosphatase 409 U/L (40-150); Anion Gap 17 mmol/L (10-20); BUN (Urea Nitrogen) 66 mg/dL (8.4-25.7); Bilirubin, Total 2.2 mg/dL (0.2-1.2); Calc. Creatinine Clearance 44 mL/min (70-130); Calcium 10.3 mg/dL (7.8-10.44); Carbon Dioxide 32 mmol/L (23-31); Chloride 89 mmol/L (98-107); Estimated GFR-MDRD 38; Globulin 3.9 g/dL (2.4-3.5); Glucose 371 mg/dL (83-110); Potassium 3.1 mmol/L (3.5-5.1); Protein, Total 7.9 g/dL (5.8-8.1); Sodium 135 mmol/L (136-145)
[2018-09-05] MEDS: HumaLOG 300 UNITS/3 ML VIAL SC PRN ×2 (06:01→13:06)
--- NOTE | 2018-09-05 07:09 | PDOC.FM ---
- Subjective Subjective: Mr. Bell denies CP, SOB. He is sleeping and has not eaten his breakfast. He denies any complaints. - Objective Vital Signs & Weight: Vital Signs (12 hours) Temp Pulse Resp BP BP BP BP 09/05/18 05:40 98.4 F 69 16 124/66 09/05/18 02:10 132/70 132/77 148/80 H 09/04/18 23:40 98.1 F 65 18 151/77 H Pulse Ox 09/05/18 05:40 95 09/05/18 02:10 09/04/18 23:40 96 Weight Weight 94.665 kg Result Diagrams: 09/05/18 02:49 09/05/18 02:49 Phys Exam - Physical Examination Constitutional: NAD Respiratory: no wheezing, no rhonchi, clear to auscultation bilateral Cardiovascular: RRR 2/6 systolic murmur Gastrointestinal: soft, non-tender, positive bowel sounds Musculoskeletal: no edema Skin: normal turgor Dx/Plan (1) Physical deconditioning Code(s): R53.81 - OTHER MALAISE Status: Acute (2) (HFpEF) heart failure with preserved ejection fraction Code(s): I50.30 - UNSPECIFIED DIASTOLIC (CONGESTIVE) HEART FAILURE Status: Chronic (3) Cirrhosis of liver with ascites Code(s): K74.60 - UNSPECIFIED CIRRHOSIS OF LIVER; R18.8 - OTHER ASCITES Status : Chronic (4) DM2 (diabetes mellitus, type 2) Status: Chronic Qualifiers: Diabetes mellitus fpc insulin use: with fpc use Diabetes mellitus complication status: with circulatory complication Diabetes mellitus complication detail: with other circulatory complications Qualified Code(s): E11.59 - Type 2 diabetes mellitus with other circulatory complications; Z79.4 - terminal operations supervisor (current) use of insulin; Z79.4 - penitentiary (current) use of insulin; Z79.4 - penitentiary (current) use of insulin; Z79.4 - penitentiary (current) use of insulin (5) HTN (hypertension) Code(s): I10 - ESSENTIAL (PRIMARY) HYPERTENSION Status: Chronic Qualifiers: Hypertension type: essential hypertension Qualified Code(s): I10 - Essential (primary) hypertension (6) History of pulmonary embolism Code(s): Z86.711 - PERSONAL HISTORY OF PULMONARY EMBOLISM Status: Chronic (7) Hypothyroidism Code(s): E03.9 - HYPOTHYROIDISM, UNSPECIFIED Status: Chronic - Plan Plan: Deconditioning with weakness and falls - multiple co-morbid conditions and admission for similar complaints - TSH wnl, anemia at baseline, trop ind->downtrended - recent echo HFpEF, orthostatics neg - CT brain wnl - CM, rehab screen pending Cirrhosis with ascites - labs near baseline, follows with Dr. Palacio - ammonia wnl, continue home meds. Will monitor BMs HFpEF - echo w/in 1 year - continue home meds, avoid aggressive volume resuscitation HTN - aware, continue home meds DMII - continue home meds - mild SSI, ACHS glucose HLD - aware, continue home meds hx of PE - aware, continue anticoagulation - saturating well on RA, not tachy Hypothyroid - TSH wnl, continue home meds hypokalemia - replace, continue home meds - monitor CMP code: full PCP: annie ppx: home anti-coag Dispo: pending CM recommendations, pt would likely benefit from placement due to deconditioning Addendum - Attending - Attending Attestation Date/Time: 09/05/18 0736 I personally evaluated the patient and discussed the management with I agree with the History, Examination, Assessment and Plan documented above with any addition or exceptions noted below.Patient appears lethargic this am, ammonia level noted need continue lactose, rifaxamin, continue monitor renal and liver function need INR if not not and serial ammonia levels ,urinalysis clear. resume home rx CPAP etc
[2018-09-05] MEDS ORDERED: Potassium Chloride 20 MEQ TAB PO SCH (07:15)
[2018-09-05] MEDS: Potassium Chloride 20 MEQ TAB PO SCH (09:13)
[2018-09-05] MEDS ORDERED: HumaLOG 300 UNITS/3 ML VIAL SC SCH ×2 (17:00→18:30)
[2018-09-05] MEDS: Spironolactone 25 MG TAB PO SCH (20:28)
[2018-09-05] MEDS: Torsemide 20 MG TAB PO SCH (20:28)
[2018-09-05] MEDS: Rivaroxaban 10 MG TAB PO SCH (20:28)
[2018-09-05] MEDS: Rifaximin 550 MG TAB PO SCH (20:29)
[2018-09-05] MEDS: Insulin Glargine 20 UNITS in Pre-Filled Syringe 1 EACH SC SCH (20:29)
[2018-09-05] MEDS ORDERED: Non-Formulary Item 1 EACH (Insulin Degludec [Tresiba Flextouch U-200] 20 UNIT) SQ SCH (21:00)
[2018-09-06] MEDS: HumaLOG 300 UNITS/3 ML VIAL SC PRN (05:36)
[2018-09-06] MEDS ORDERED: Levothyroxine Sodium 112 MCG TAB PO SCH (06:00)
--- NOTE | 2018-09-06 06:31 | PDOC.FM ---
- Subjective Subjective: Mr. Bell denies any pain, SOB, CP. He has no complaints and says he is ready for rehab. - Objective Vital Signs & Weight: Vital Signs (12 hours) Temp Pulse Resp BP Pulse Ox 09/06/18 05:00 97.4 F L 65 18 129/70 95 09/06/18 00:00 97.5 F L 73 20 102/39 L 94 L 09/05/18 20:00 98.3 F 72 20 132/73 97 Weight Weight 94.665 kg I&O: 09/04/18 09/05/18 09/06/18 06:59 06:59 06:59 Intake Total 1909 Balance 1909 Result Diagrams: 09/05/18 02:49 09/05/18 02:49 Phys Exam - Physical Examination Constitutional: NAD Respiratory: no wheezing, no rhonchi, clear to auscultation bilateral Cardiovascular: RRR, no significant murmur Gastrointestinal: soft, non-tender, positive bowel sounds Musculoskeletal: no edema Neurological: moves all 4 limbs Psychiatric: normal affect Skin: normal turgor Dx/Plan (1) Physical deconditioning Code(s): R53.81 - OTHER MALAISE Status: Acute (2) (HFpEF) heart failure with preserved ejection fraction Code(s): I50.30 - UNSPECIFIED DIASTOLIC (CONGESTIVE) HEART FAILURE Status: Chronic (3) Cirrhosis of liver with ascites Code(s): K74.60 - UNSPECIFIED CIRRHOSIS OF LIVER; R18.8 - OTHER ASCITES Status : Chronic (4) DM2 (diabetes mellitus, type 2) Status: Chronic Qualifiers: Diabetes mellitus jail insulin use: with jail use Diabetes mellitus complication status: with circulatory complication Diabetes mellitus complication detail: with other circulatory complications Qualified Code(s): E11.59 - Type 2 diabetes mellitus with other circulatory complications; Z79.4 - channel process plant operator (current) use of insulin; Z79.4 - channel process plant operator (current) use of insulin; Z79.4 - shelter (current) use of insulin; Z79.4 - shelter (current) use of insulin (5) HTN (hypertension) Code(s): I10 - ESSENTIAL (PRIMARY) HYPERTENSION Status: Chronic Qualifiers: Hypertension type: essential hypertension Qualified Code(s): I10 - Essential (primary) hypertension (6) History of pulmonary embolism Code(s): Z86.711 - PERSONAL HISTORY OF PULMONARY EMBOLISM Status: Chronic (7) Hypothyroidism Code(s): E03.9 - HYPOTHYROIDISM, UNSPECIFIED Status: Chronic - Plan Plan: Deconditioning with weakness and falls - multiple co-morbid conditions and admission for similar complaints - TSH wnl, anemia at baseline, trop ind->downtrended - recent echo HFpEF, orthostatics neg - CT brain wnl - accepted for rehab Cirrhosis with ascites - labs near baseline, follows with Dr. Palacio - having adequate BMs HFpEF - echo w/in 1 year - continue home meds, avoid aggressive volume resuscitation HTN - aware, continue home meds DMII - continue home meds - mild SSI, ACHS glucose HLD - aware, continue home meds hx of PE - aware, continue anticoagulation - saturating well on RA, not tachy Hypothyroid - TSH wnl, continue home meds hypokalemia - replace, continue home meds - monitor CMP code: full PCP: annie ppx: home anti-coag Dispo: plan for discharge to rehab today Addendum - Attending - Attending Attestation Date/Time: 09/06/18 1302 I personally evaluated the patient and discussed the management with Dr. Morris I agree with the History, Examination, Assessment and Plan documented above with any addition or exceptions noted below. Based on todays brief MMSE patient is improved albeit still poor. He has significant encephalopathy he would benefit from rehab placement will need to confer with PCP to determine his baseline mental status functioning. Patient with adequate response to lactulose by evidence of stooling frequency. No significant tremor on today. Asterixis not demonstrated.
[2018-09-06 08:19] VITALS: BP 119/67; TEMP 97.2
[2018-09-06] MEDS: Rivaroxaban 10 MG TAB PO SCH (08:30)
[2018-09-06] MEDS: Rifaximin 550 MG TAB PO SCH (08:31)
[2018-09-06] MEDS: Torsemide 20 MG TAB PO SCH (08:31)
[2018-09-06] MEDS: HumaLOG 300 UNITS/3 ML VIAL SC SCH ×2 (08:32→12:36)
[2018-09-06] MEDS: Spironolactone 25 MG TAB PO SCH (08:32)
[2018-09-06] MEDS: Insulin Glargine 20 UNITS in Pre-Filled Syringe 1 EACH SC SCH (08:33)
[2018-09-06] MEDS: Potassium Chloride 20 MEQ TAB PO SCH (08:33)
[2018-09-06] MEDS ORDERED: Anastrozole 1 MG TAB PO SCH (09:00)
--- NOTE | 2018-09-07 11:26 | DIS ---
DATE OF ADMISSION: 09/04/2018 DATE OF DISCHARGE: 09/06/2018 RESIDENT: Nithya Morris DO ADMITTING ATTENDING: Raissa Sandhu MD DISCHARGE ATTENDING: Dr. Júnior Castillo. CONSULTS: None. PROCEDURES: 09/04/2018, brain CT showed no acute findings. PRIMARY DIAGNOSES: 1. Deconditioning. 2. Cirrhosis with ascites. SECONDARY DIAGNOSES: 1. Heart failure with preserved ejection fraction. 2. Hypertension. 3. Type 2 diabetes. 4. Hyperlipidemia. 5. Hypothyroidism. 6. History of pulmonary embolism. 7. Hypokalemia. DISCHARGE MEDICATIONS: No medication changes during hospitalization. 1. Torsemide 20 mg p.o. t.i.d. 2. Xarelto 20 mg p.o. b.i.d. 3. Anastrozole 1 mg p.o. daily. 4. Spironolactone 25 mg p.o. b.i.d. 5. Rifaximin 550 mg p.o. b.i.d. 6. Potassium chloride 20 mEq p.o. daily. 7. Levothyroxine 112 mcg p.o. daily. 8. Insulin degludec (Tresiba) 20 units subcu b.i.d. 9. Insulin aspart (NovoLog FlexPen) 20 units subcu t.i.d. 10. Metolazone 2.5 mg p.o. daily. 11. Lactulose 30 mg p.o. q.i.d. HISTORY OF PRESENT ILLNESS: An 83-year-old male presented with family for evaluation of confusion, weakness and fall. The patient also had some incontinence. The patient had a very similar presentation about two months ago, however, difficult with history to obtain. The patient was compliant with medications reportedly. There was no focal weakness, syncope, shortness of breath, seizure, chest pain, dyspnea on exertion, or palpitations. The patient lives at home in [place] with his son and . The patient was admitted to the medical floor for monitoring. TSH was within normal limits. Anemia at baseline. Troponins were indeterminate and downtrended. Orthostatic vital signs were negative. The patient was seemingly all at baseline as far as laboratory values are concerned. He was continued on lactulose and had at least three bowel movements in a 24-hour period. He did improve throughout the course of his hospitalization. Rehab was consulted for further care and therapy. The patient was accepted and discharged to inpatient rehab. DISPOSITION: Guarded. DISCHARGE INSTRUCTIONS: 1. Location: Inpatient rehab. 2. Diet: Diabetic. 3. Activity: As tolerated. 4. Followup: Follow up with PCP, Dr. Beauchamp, in 7 days. Job ID: [id number]
--- NOTE | 2018-09-09 11:08 | EKG ---
Test Reason : Blood Pressure : / mmHG Vent. Rate : 059 BPM Atrial Rate : 267 BPM P-R Int : 000 ms QRS Dur : 118 ms QT Int : 408 ms P-R-T Axes : 000 -49 032 degrees QTc Int : 403 ms Atrial fibrillation with slow ventricular response with a competing junctional pacemaker Left axis deviation Possible Anterior infarct , age undetermined Abnormal ECG Confirmed by DUY SHERIFF M.D. ([id number]), film or videotape editor WICHO ZELAYA ([id number]) on 09/09/2018 11:08:20 AM Referred By: Confirmed By:DUY SHERIFF M.D.
== END 2018-09-06 16:20 ==
LOC: ERS 20:13 → T4-B 22:13
PROVIDERS: ADMIT Student in an Organized Health Care Education/Training Program; ATTEND Student in an Organized Health Care Education/Training Program
DX: R53.81 Other malaise (principal); R53.1 Weakness; R41.0 Disorientation, unspecified; K74.60 Unspecified cirrhosis of liver; R18.8 Other ascites; I13.0 Hypertensive heart and chronic kidney disease with heart failure and stage 1 through stage 4 chronic kidney disease, or unspecified chronic kidney disease; E11.22 Type 2 diabetes mellitus with diabetic chronic kidney disease; N18.3 Chronic kidney disease, stage 3 (moderate); I50.33 Acute on chronic diastolic (congestive) heart failure; E03.9 Hypothyroidism, unspecified; G47.33 Obstructive sleep apnea (adult) (pediatric); I24.8 Other forms of acute ischemic heart disease; E87.6 Hypokalemia; I48.2 Chronic atrial fibrillation; K72.90 Hepatic failure, unspecified without coma; Z87.891 Personal history of nicotine dependence; Z86.711 Personal history of pulmonary embolism; Z79.899 Other long term (current) drug therapy; Z79.01 Long term (current) use of anticoagulants; Z79.4 Long term (current) use of insulin; Z79.811 Long term (current) use of aromatase inhibitors; Z88.0 Allergy status to penicillin
CPT/HCPCS: 70450; 71045; 80048; 80053; 81003; 82140 ×2; 82550; 82553; 82962 ×2; 83880; 84484 ×3; 85025; 93005; 97116; 97139 ×4; 97530; 99285; G0378 ×2; 36415; 36416; 84443; J1825

== ENCOUNTER 2018-09-30 12:50 | Emergency (ER) | payer MEDICARE, BC ==
--- NOTE | 2018-09-30 13:13 | CT ---
CT Brain WO Con History: [Trauma] Comparison: CT brain September 04, 2018 Findings: No acute hemorrhage or infarct. No midline shift or mass effect. Moderate atrophy. Moderate chronic microvascular ischemic changes. The calvarium is intact. There is fluid filling of the right sphenoid sinus, unchanged. Mastoids are clear. Impression: No acute posttraumatic intracranial sequelae.
--- NOTE | 2018-09-30 13:35 | RAD ---
XR Shoulder Lt 2 View History: [Tripped and fell. Pain.] Comparison: None. Findings: There is a minimally displaced fracture of the surgical neck of the left humerus. Fracture does extend into the greater tuberosity. Less than 1 cm displacement and minimal angulation. Impression: Minimally displaced and angulated fracture through the surgical neck of the humerus.
[2018-09-30] MEDS ORDERED: HYDROcodone/Acetaminophen 5/325 mg Tablet ONE (13:59)
[2018-09-30] MEDS ORDERED: Adacel (T-DAP) 0.5 ML SYRINGE ONE (13:59)
== END 2018-09-30 14:22 | disposition home or self-care (01) ==
LOC: ERS 12:50
DX: S42.212A Unspecified displaced fracture of surgical neck of left humerus, initial encounter for closed fracture (principal); S50.312A Abrasion of left elbow, initial encounter; I48.91 Unspecified atrial fibrillation; E03.9 Hypothyroidism, unspecified; I11.0 Hypertensive heart disease with heart failure; I50.9 Heart failure, unspecified; E11.9 Type 2 diabetes mellitus without complications; Z79.899 Other long term (current) drug therapy; Z79.01 Long term (current) use of anticoagulants; Z79.4 Long term (current) use of insulin; W19.XXXA Unspecified fall, initial encounter
CPT/HCPCS: 70450; 90471; 90715

== ENCOUNTER 2018-12-04 02:16 | Inpatient (IN) | payer MEDICARE, BC ==
[2018-12-04 02:42] LABS: #Lymphocytes 1.9 thou/uL (1.20-3.40); #Monocytes 0.5 thou/uL (0.11-0.59); #Neutrophils 4.4 thou/uL (1.40-6.50); %Basophils 0.3 % (0.0-1.0); %Eosinophils 12.9 % (0.0-10.0); %Lymphocytes 24.3 % (21.0-51.0); %Monocytes 6.1 % (0.0-10.0); %Neutrophils 56.5 % (42.0-75.0); Hemoglobin 15.3 g/dL (14.0-18.0); Mean Corpuscular HGB CONC 35.1 g/dL (32.0-36.0); Mean Corpuscular Hemoglobin 34.8 pg (27.0-31.0); Mean Corpuscular Volume 99.3 fL (78.0-98.0); Mean Platelet Volume 6.7 fL (7.4-10.4); Platelet Count 212 thou/uL (130-400); RBC Distribution Width 13.5 % (11.5-14.5); Red Blood Cell (RBC) Count 4.39 mill/uL (4.70-6.10); White Blood Cell (WBC) Count 7.8 thou/uL (4.8-10.8)
[2018-12-04 03:02] LABS: ALT (SGPT) 100 U/L (8-55); AST (SGOT) 53 U/L (5-34); Alkaline Phosphatase 397 U/L (40-150); Anion Gap 16 mmol/L (10-20); BUN (Urea Nitrogen) 38 mg/dL (8.4-25.7); Bilirubin, Total 1.1 mg/dL (0.2-1.2); Calc. Creatinine Clearance 0 mL/min (70-130); Calcium 10.9 mg/dL (7.8-10.44); Carbon Dioxide 31 mmol/L (23-31); Chloride 94 mmol/L (98-107); Estimated GFR-MDRD 45; Globulin 4.3 g/dL (2.4-3.5); Glucose 142 mg/dL (83-110); Potassium 3.2 mmol/L (3.5-5.1); Protein, Total 8.3 g/dL (5.8-8.1); Sodium 138 mmol/L (136-145)
[2018-12-04 03:28] LABS: PTT 31.5 SEC (22.9-36.1); Prothrombin Time 13.4 SEC (12.0-14.7)
[2018-12-04 04:32] LABS: Clarity Cloudy (Clear); Leukocyte 500 Leu/uL (Negative); Nitrite Negative (Negative)
[2018-12-04 04:33] LABS: Bilirubin Negative (Negative); Blood, Urine 1+ (Negative); Glucose, Urine (Dipstick) Negative (Negative); Protein, Urine (Dipstick) 30 mg/dL (Neg-Trace); Urobilinogen 0.2 mg/dL (Less than 2)
[2018-12-04 04:34] LABS: Bacteria/HPF 4+ HPF (None Seen); Squamous Epithelial 0-3 HPF (0-3); Trichomonas/HPF None Seen HPF (None Seen); WBC/HPF Greater than 50 HPF (0-3); Yeast-Hyphae None Seen HPF (None Seen)
[2018-12-04] MEDS ORDERED: Dextrose 5% in Water 1,000 ML IV PRN (05:04)
[2018-12-04] MEDS ORDERED: Ondansetron ODT 4 MG TAB PO PRN (05:04)
[2018-12-04] MEDS ORDERED: Dextrose 50% Abboject 50 ML SYRINGE SLOW IVP PRN (05:04)
[2018-12-04] MEDS ORDERED: traMADol HCl 50 MG TAB PO PRN (05:04)
[2018-12-04] MEDS ORDERED: Ondansetron PF 4 MG/2 ML Vial IVP PRN (05:04)
[2018-12-04] MEDS ORDERED: hydrALAZINE 20 MG/ML VIAL SLOW IVP PRN (05:04)
[2018-12-04 05:10] VITALS: BMI 27.9
[2018-12-04] MEDS ORDERED: Acetaminophen 1,000 MG in Premix Bag 1 BAG IVPB SCH (05:15)
--- NOTE | 2018-12-04 05:17 | CON ---
DATE OF CONSULTATION: HISTORY OF PRESENT ILLNESS: The patient is an 83-year-old male with a past medical history of atrial fibrillation, on Xarelto, diabetes, hypertension, CHF, chronic cirrhosis, who presented to the emergency department following sliding out of his lift chair this evening. Family reports the patient is currently sleeping in his lift chair secondary to healing humerus fracture. They heard him calling for help and found him on the floor. They called EMS, who brought the patient to the emergency department for further evaluation. CT head was done on arrival, which was notable for small right parafalcine subdural hematoma. The patient is reportedly on Xarelto. His coags, INR was normal. PTT, PT, as well as platelets are all within normal limits. The patient was noted to have elevated ammonia on lab work at 142. He is slightly confused, but family reports that this is fairly typical when his ammonia is elevated. He has GCS of 15. No other additional injuries. PHYSICAL EXAMINATION: VITAL SIGNS: BP is 134/90, pulse is 82, respiration rate is 17, O2 saturation 100% on room air, temperature is 98.0. CONSTITUTIONAL: Awake, alert, in no acute distress. GCS is 15. HEENT: Head; normocephalic and atraumatic. Eyes; PERRLA. Extraocular movements intact. ENT; oral mucosa is slightly dry. He has normal voice. NECK: Nontender to palpation. Free active range of motion. No meningismus or nuchal rigidity. RESPIRATORY: Symmetric chest expansion. CARDIOVASCULAR: Regular rate and rhythm. MUSCULOSKELETAL: No obvious deformity. He is moving all 4s without difficulty. Symmetric pulses. SKIN: Dry. NEUROLOGIC: Oriented to person and place, but not to time or situation. No focal neurologic deficits are appreciated on my exam. ASSESSMENT AND PLAN: This is an 83-year-old male, on Xarelto for atrial fibrillation as well as known liver cirrhosis with an elevated ammonia, who had a mechanical fall from his lift chair tonight. He has small right-sided parafalcine subdural hemorrhage. There is no mass effect or midline shift. We will plan to monitor the patient closely in the ICU with repeat head CT tomorrow morning. We will recommend head of bed at 30 degrees and systolic blood pressure should be kept less than 150. I have discussed this case with the Trauma Service as well as Dr. Hernandez. We will follow along closely. Job ID: [id number]
[2018-12-04] MEDS ORDERED: Potassium Chloride 20 MEQ/100 ML PREMIX BAG IVPB SCH (05:30)
[2018-12-04] MEDS: Sodium Chloride 0.9% 1,000 ML IV SCH ×2 (05:42→14:04)
[2018-12-04 05:46] LABS: Magnesium 2.3 mg/dL (1.6-2.6); Phosphorus 3.1 mg/dL (2.3-4.7)
--- NOTE | 2018-12-04 06:21 | HP ---
This is Amilcar Corado PA-C dictating a report for Terrell Castellanos DO. REQUESTING PHYSICIAN: Dr. Arnold. ATTENDING SURGEON: Dr. Castellanos. CONSULTATIONS: Neurosurgery, Dr. Hernandez. HISTORY OF PRESENT ILLNESS: The patient is an 83-year-old man who has a history of panic encephalopathy, who has been noncompliant with his lactulose, who this evening slipped on his linoleum floor. Family reports no loss of consciousness, but thinks that he may have struck his head. He was brought to the emergency department where he underwent evaluation and examination and was noted to have a subdural hematoma. The patient is on Xarelto for his atrial fibrillation, which complicates the situation. He was also noted to have elevated ammonia and the urinary tract infection. We were asked to evaluate the patient for admission and obtain neurosurgical consultations. ALLERGIES: PENICILLIN. CURRENT MEDICATIONS: 1. Xarelto. 2. Torsemide. 3. Metolazone. 4. Xifaxan. 5. Lactulose. PAST MEDICAL HISTORY: Cirrhosis, insulin-dependent diabetes, atrial fibrillation, hypertension, CHF, hypothyroidism. PAST SURGICAL HISTORY: Right knee replacement, cholecystectomy, and thyroidectomy. SOCIAL HISTORY: The patient is a former smoker. Denies drug or alcohol use. Lives at home with family. REVIEW OF SYSTEMS: A 10-point review of systems is negative as otherwise stated. PHYSICAL EXAMINATION: VITAL SIGNS: Blood pressure 110/64, heart rate 75, respirations 16, oxygen saturation 100% on room air, and temperature is 98.0. GENERAL: The patient is resting comfortably in bed. He is awake, alert, and oriented x2. [place] Coma Scale is 14. He has some episodes of confusion that the family states is how they recognize of his ammonia level was up. Again, they believe that the way he is behaving and his mental status now is more related to his ammonia than any other issues. HEENT: Head is normocephalic, atraumatic. Eyes, extraocular motions intact. PERRLA bilaterally. Ears are atraumatic without discharge. Nose is atraumatic without discharge. Oropharynx is clear. NECK: Nontender. Trachea is midline. There is no JVD. CHEST: Clear to auscultation with good inspiratory and expiratory effort. HEART: Irregularly irregular rhythm with a regular rate. ABDOMEN: Soft, flat, and nontender with active bowel sounds. PELVIS: Stable. EXTREMITIES: The patient has tenderness to palpation to his left shoulder, which family states is from a fracture from September. The patient is also noted to have a tremor in his left upper extremity that the family states is new since this evening. Otherwise, his extremities are neurovascularly intact x4. BACK: Atraumatic and nontender. The patient has no CVA tenderness. LABORATORY FINDINGS: White blood cell count 7.8, hemoglobin 15.3, hematocrit 43.6, platelets 212. Sodium 138, potassium 3.2, chloride 94, CO2 of 31, BUN 38, creatinine 1.49, again glucose is 142. Total bilirubin 1.1, AST 53, ALT 100, alkaline phosphatase 397, ammonia 142. CK 29. Troponin 0.024. BNP is 22.9. PT 13, INR 1.0, PTT 32. Urinalysis shows positive leukocyte esterase, 4+ bacteria, greater than 50 wbc's. RADIOGRAPHIC REPORTS: CT of the head without contrast shows an acute right parafalcine subdural hematoma measuring 8 mm in the maximum thickness. There is also a small acute left temporal subdural hematoma measuring 4 mm in maximum thickness. There is a complete opacification of the right sphenoid sinus may signify sinusitis. ASSESSMENT: 1. Status post ground level fall. 2. Subdural hematoma on Xarelto. 3. Hepatic encephalopathy. 4. Urinary tract infection. 5. Altered mental status secondary to above. 6. Chronic kidney disease. 7. Hypokalemia. PLAN: Plan will be to admit the patient to the critical care unit for close monitoring. He will have serial neuro exams, and if there is a change in his [place] Coma Scale of 2 points or more, we will repeat his head CT. We will resume his lactulose immediately and also start antibiotics for his urinary tract infection. The patient will have IV hydration, pulmonary toilet, gastritis and mechanical VTE prophylaxis. The patient was evaluated by neurosurgical PA in the emergency department. The evaluation, examination, laboratory, and radiographic findings will be discussed with Dr. Castellanos after this dictation. Job ID: [id number] MTDD
[2018-12-04] MEDS: Insulin Regular 300 UNITS/3 ML VIAL SC PRN ×4 (06:26→21:10)
--- NOTE | 2018-12-04 07:52 | RAD ---
EXAM: CHEST ONE VIEW HISTORY: Altered mental status COMPARISON: 09/18/2018 FINDINGS: Cardiac silhouette remains enlarged. Pulmonary vasculature is within normal limits. There is minimal linear and hazy density in the right midlung zone which could be related to developing area of pneumonitis. No consolidation or pleural fluid is seen. Vascular calcifications are seen in the thora cic aorta. Degenerative change are noted in the spine. IMPRESSION: 1. Interstitial and mild hazy opacity in the right midlung zone which may be related to developing ar ea of pneumonitis. Follow-up chest x-ray is recommended. 2. Cardiomegaly without overt CHF.
--- NOTE | 2018-12-04 08:42 | CT ---
PRELIMINARY REPORT/[facility]/EMERGENCY AFTER HOURS PROCEDURE: Addendum created by Landon Shell MD on 12/04/2018 2:54 AM Central Time ([place] & [place]) Findings discussed with NIKKI RAE MD at time of interpretation. Initial Report created on 12/04/2018 2:51 AM Central Time ([place] & [place]) EXAM: CT Head Without Contrast EXAM DATE/TIME: 12/04/2018 2:41 AM CLINICAL HISTORY: 83 years old, male; Injury or trauma; Fall; Initial encounter; Abrasion; Head, generalized; Patient H X: PT from home by EMS fell getting out of chair. Hit back of head per PT but denies loc. TECHNIQUE: Imaging protocol: Computed tomography images of the head without contrast. COMPARISON: No relevant prior studies available. FINDINGS: Brain: Acute right parafalcine subdural hematoma measuring 8 mm in maximum thickness. Small acute lef t temporal subdural hematoma measuring 4 mm in maximum thickness. Volume loss and chronic small vesse l ischemic change. Midline shift: No midline shift. Ventricles: Normal. No ventriculomegaly. Bones/joints: Unremarkable. No acute fracture. Sinuses: Complete opacification of the right sphenoid sinus may signify sinusitis. Mastoid air cells: Visualized mastoid air cells are well aerated. No mastoid effusion. Soft tissues: Unremarkable. IMPRESSION: 1. Acute right parafalcine subdural hematoma measuring 8 mm in maximum thickness. 2. Small acute left temporal subdural hematoma measuring 4 mm in maximum thickness. 3. Complete opacification of the right sphenoid sinus may signify sinusitis. Thank you for allowing us to participate in the care of your patient. Dictated and Authenticated by: Landon Shell MD 12/04/2018 2:51 AM Central Time ([place] & [place]) FINAL REPORT HEAD CT WITHOUT CONTRAST: HISTORY: Fall. Hit back of head. COMPARISON: None. FINDINGS: There is a right parafalcine subdural hematoma. Additional subdural blood tracks along the right ten torium. No parenchymal hemorrhage. No midline shift. Age-appropriate atrophy. Chronic small-vesse l ischemic changes of the white matter are identified. Intact calvarium. Right sphenoid sinus disea se. There is an anterior right middle cranial fossa subdural hematoma. IMPRESSION: This report is in agreement with the preliminary report by [facility] [email or web address] Subdural hematomas as described abov e. Right sphenoid sinus opacification. Note, the initial report by [facility] [[email or web address]] stated there was a left temp oral subdural hematoma. Rather, it is actually on the right side. POS: H
[2018-12-04] MEDS ORDERED: Famotidine 20 MG TAB PO SCH (09:00)
[2018-12-04] MEDS ORDERED: Acetaminophen 500 MG TAB PO SCH (12:00)
--- NOTE | 2018-12-04 12:14 | PRG ---
DATE OF SERVICE: 12/04/2018 This is Isac Griffiths PA-C dictating a report for Terrell Castellanos DO. SUBJECTIVE: This is an 83-year-old gentleman who came into the emergency room to be evaluated after a fall at home. Family reports he is sitting in his chair and his slipped on the floor. After the fall, his GCS is 15. Mental status not changed according to the family. He went to the emergency department. He was evaluated and he sustained subdural hematoma. He is on Xarelto for atrial fibrillation. He has a history of cirrhosis, diabetes, atrial fibrillation, hypertension, CHF, hypothyroid. Surgical history of right knee replacement, cholecystectomy and thyroidectomy. The patient was consulted with Neurosurgery. We repeated CT scan this morning. The patient's mental status had been stable, admission vital signs stable. He is able to make a good urine. On round this morning, patient complained of pain from R upper arm, limited range of motion due to pain OBJECTIVE: GENERAL: The patient lying down in bed comfortably and carry on with the conversation normally, in no acute distress. VITAL SIGNS: Temperature is 97.7, heart rate 68, respiratory rate 16, blood pressure 117/60 and O2 saturation 99% on room air. LUNGS: Clear bilaterally. HEART: Regular rate and rhythm. ABDOMEN: Soft, nondistended. Normal bowel sounds. EXTREMITIES: Left shoulder tender to touch due to healing process from left humerus fracture on September. Neurovascularly intact x4. ASSESSMENT: 1. Status post ground level fall. 2. Small subdural hematoma on Xarelto. 3. Hepatic encephalopathy. 4. Urinary tract infection, treated with Levaquin, day #2. 5. Chronic kidney disease. PLAN: We will follow up neuro check q/ hour. Continue pain control. Followup with the head CT and neurology consult. Continue UTI antibiotic, DVT and gastritis prophylaxis. XR Right upper arm was ordered The patient was seen and evaluated with Dr. Castellanos on rounds this morning. Job ID: [id number] [facility]
--- NOTE | 2018-12-04 12:47 | RAD ---
EXAM: XR Humerus Lt 2 View STANDARD PROVIDED CLINICAL HISTORY: Pain COMPARISON: 09/30/2018 FINDINGS: Transversely oriented impacted and foreshortened left proximal humeral neck fracture is demonstrated with surrounding immature callus formation. No additional fracture is evident. IMPRESSION: Left proximal humeral fracture is redemonstrated as above.
--- NOTE | 2018-12-04 12:48 | RAD ---
EXAM: XR Shoulder Lt 3 View STANDARD PROVIDED CLINICAL HISTORY: Trauma COMPARISON: 09/30/2018 FINDINGS: Fracture involving the left proximal humerus is redemonstrated with surrounding immature callus forma tion. The fracture appears foreshortened and impacted with respect to the prior study. No additional fracture is evident. The glenohumeral relationship appears preserved. The visualized left lung field appears clear. IMPRESSION: As above.
--- NOTE | 2018-12-04 13:00 | PRG ---
DATE OF SERVICE: 12/04/2018 The patient was seen and examined. I agree with Darlene Vargas's evaluation on 12/04/2018. The patient is an 83-year-old male with cirrhosis and on Xarelto for AFib, who had a fall from a seated position. He is alert and interactive, although he has a baseline dementia. He is nonfocal. History is mostly provided by his and son. Head CT reveals a falcine subdural hematoma without mass effect. Coags and platelets are normal. IMPRESSION AND PLAN: The patient has a falcine subdural hematoma. We will hold Xarelto indefinitely. A followup head CT will be obtained tomorrow and if stable, he can be mobilized for dismissal with a 4-week followup head CT. Job ID: [id number]
[2018-12-04] MEDS: Gabapentin 100 MG CAP PO SCH (20:33)
[2018-12-04] MEDS ORDERED: Prevnar 13-Val Conj/PF 0.5 ML SYRINGE IM ONE (21:00)
[2018-12-05] MEDS: Sodium Chloride 0.9% 1,000 ML IV SCH (00:02)
[2018-12-05] MEDS ORDERED: Sodium Chloride 0.9% 1,000 ML IV SCH (00:17)
--- NOTE | 2018-12-05 00:52 | PRG ---
DATE OF SERVICE: 12/05/2018 SUBJECTIVE: The patient is currently in the critical care unit. He was admitted early this morning, status post ground level fall, in which he sustained a subdural hematoma and he is on Xarelto. The patient also was noted to have hepatic encephalopathy and urinary tract infection. He is undergoing treatment for both of these. He has had serial neuro exams and currently the plan is to repeat his head CT in the morning. The patient has not had any decline. He has actually had some improvement likely due to his encephalopathy improving. OBJECTIVE: VITAL SIGNS: Stable. The patient is afebrile. GENERAL: The patient is resting comfortably in bed. He is awake, alert, conversant. [place] Coma Scale is 15. LUNGS: Clear to auscultation bilaterally. HEART: Regular rate and rhythm. ABDOMEN: Soft, flat, nontender with normal bowel sounds. ASSESSMENT: 1. Status post ground level fall. 2. Small subdural hematoma, on Xarelto. 3. Hepatic encephalopathy, undergoing treatment with lactulose. 4. Urinary tract infection, under treatment with Levaquin, awaiting sensitivities for the Escherichia coli that grew out. 5. Chronic kidney disease. PLAN: Plan will be to continue monitoring on the Critical Care Unit, head CT in the morning, sooner as needed. Continue lactulose monitoring, ammonia level. Continue antibiotic treatment for UTI, pending culture and sensitivities. The patient also should begin working with Physical and Occupational Therapy. Job ID: [id number]
[2018-12-05 04:14] LABS: #Eosinphils 0.6 thou/uL (0.0-0.7); #Lymphocytes 1.4 thou/uL (1.20-3.40); #Monocytes 0.4 thou/uL (0.11-0.59); #Neutrophils 3.7 thou/uL (1.40-6.50); %Basophils 0.4 % (0.0-1.0); %Eosinophils 10.5 % (0.0-10.0); %Lymphocytes 22.5 % (21.0-51.0); %Monocytes 6.4 % (0.0-10.0); %Neutrophils 60.2 % (42.0-75.0); Hemoglobin 12.9 g/dL (14.0-18.0); Mean Corpuscular HGB CONC 35.8 g/dL (32.0-36.0); Mean Corpuscular Hemoglobin 35.6 pg (27.0-31.0); Mean Corpuscular Volume 99.3 fL (78.0-98.0); Mean Platelet Volume 6.8 fL (7.4-10.4); Platelet Count 166 thou/uL (130-400); RBC Distribution Width 13.3 % (11.5-14.5); Red Blood Cell (RBC) Count 3.61 mill/uL (4.70-6.10); White Blood Cell (WBC) Count 6.1 thou/uL (4.8-10.8)
[2018-12-05 04:35] LABS: Anion Gap 11 mmol/L (10-20); BUN (Urea Nitrogen) 22 mg/dL (8.4-25.7); Calc. Creatinine Clearance 84 mL/min (70-130); Calcium 9.9 mg/dL (7.8-10.44); Carbon Dioxide 28 mmol/L (23-31); Chloride 103 mmol/L (98-107); Estimated GFR-MDRD 88; Glucose 154 mg/dL (83-110); Magnesium 2.1 mg/dL (1.6-2.6); Phosphorus 2.5 mg/dL (2.3-4.7); Sodium 139 mmol/L (136-145)
[2018-12-05 04:52] LABS: Potassium 2.8 mmol/L (3.5-5.1)
[2018-12-05] MEDS ORDERED: Potassium Chloride 40 MEQ in Premix Bag 1 BAG IVPB SCH (05:15)
[2018-12-05] MEDS ORDERED: Potassium Chloride 20 MEQ TAB PO SCH ×2 (05:15→17:01)
[2018-12-05] MEDS: Insulin Regular 300 UNITS/3 ML VIAL SC PRN ×4 (05:29→21:45)
--- NOTE | 2018-12-05 07:43 | CT ---
PRELIMINARY REPORT/[facility]/AFTER HOURS PROCEDURE EXAM: CT Head Without Contrast EXAM DATE/TIME: 12/05/2018 4:15 AM CLINICAL HISTORY: 83 years old, male; Condition or disease; Other: F/u sdh TECHNIQUE: Imaging protocol: Computed tomography images of the head without contrast. COMPARISON: CT Brain WO Con 12/04/2018 2:41 AM FINDINGS: Brain: Acute posterior right parafalcine subdural hematoma measuring 8 mm in maximum thickness. There is also extra-axial blood along the right tentorium cerebelli which is obscured by artifact on the prior study. Allowing for differences in technique and position, these findings are not significantly changed compared to the prior study. There is extra-axial/subarachnoid blood visible anterior to the brainstem extending along the anterior aspect of the superior spinal cord, new compared to the prior study. Volume loss and chronic small vessel ischemic change. Ventricles: Normal. No ventriculomegaly. Bones/joints: Unremarkable. No acute fracture. Sinuses: Stable opacification of the right sphenoid sinus. Mastoid air cells: Visualized mastoid air cells are well aerated. No mastoid effusion. Soft tissues: Unremarkable. IMPRESSION: 1. Acute posterior right parafalcine subdural hematoma measuring 8 mm in maximum thickness. There is also extra-axial blood along the right tentorium cerebelli which is obscured by artifact on the prior study. Allowing for differences in technique and position, these findings are not significantly changed compared to the prior study. 2. There is extra-axial/subarachnoid blood visible anterior to the brainstem extending along the anterior aspect of the superior spinal cord, new compared to the prior study. Thank you for allowing us to participate in the care of your patient. Dictated and Authenticated by: Landon Shell MD 12/05/2018 4:44 AM Central Time ([place] & [place]) FINAL REPORT CT BRAIN WITHOUT CONTRAST: I agree with the report given by Dr. Landon Shell of [facility]. CODE QA Transcribed Date/Time: 12/05/2018 8:18 AM
[2018-12-05] MEDS: Famotidine 20 MG TAB PO SCH ×2 (08:37→20:52)
[2018-12-05] MEDS: Gabapentin 100 MG CAP PO SCH ×2 (08:37→20:52)
[2018-12-05] MEDS ORDERED: Rifaximin 550 MG TAB PO SCH (09:00)
[2018-12-05] MEDS: Insulin Glargine 10 UNITS in Pre-Filled Syringe 1 EACH SC SCH ×2 (09:31→20:53)
--- NOTE | 2018-12-05 10:58 | PRG ---
DATE OF SERVICE: 12/05/2018 SUBJECTIVE: The patient is an 83-year-old male, who suffered a mechanical fall out of his lift chair with a right parafalcine SDH in the Emergency Department. He was admitted to the ICU for close monitoring. We have discontinued his aspirin and Xarelto. His repeat CT in the morning is stable with anticipated evolutionary changes. His ammonia has improved during his admission course. He is currently being treated for UTI with Levaquin. His repeat potassium in the morning was 2.8. He has been placed by the Trauma team with p.o. K-Dur. OBJECTIVE: On exam this morning, the patient is A and O x3. He has free active range of motion of all extremities. No focal motor weakness. No neurologic deficits are appreciated. From a neurological standpoint, his CT appears stable and his exam is also stable. We will plan to follow up with a repeat CT head in 4 weeks in the outpatient setting. Any anticoagulants should be held until that time. Please reach out to Neurosurgery for additional questions. Job ID: [id number] [facility]
--- NOTE | 2018-12-05 14:32 | PRG ---
DATE OF SERVICE: 12/05/2018 SUBJECTIVE: Mr. Bell is an 83-year-old man, who is post injury #1 status post ground level fall. The patient sustained acute traumatic brain injury with intra-falcine subdural hematoma. He is awake and alert this morning. [place] Coma Scale is 15. He tolerates diet, having adequate urinary output. OBJECTIVE: VITAL SIGNS: This morning include blood pressure 135/69, pulse 63, respiratory rate 17, temperature is 98.2 degrees Fahrenheit, and oxygen saturation 98% on room air. HEENT: Reveals pupils are equal, round, reactive to light and accommodation. NECK: No jugular venous distention noted. HEART: Reveals regular rate and rhythm. No murmurs or gallops auscultated. LUNGS: Clear to auscultation bilaterally. Breathing, regular and nonlabored. ABDOMEN: Soft, nontender, and nondistended. NEUROLOGIC: Reveals no focal deficits present. LABORATORY FINDINGS: Today includes CBC with 6100 white blood cells, hemoglobin and hematocrit of 12.9 and 35.9 respectively. Platelet count 166,000. Metabolic profile; sodium 139, potassium 2.8, chloride is 103, bicarb is 28, BUN is 22, creatinine 0.84, glucose 154, magnesium 2.1, and phosphorus is 2.5. IMPRESSION: 1. Post injury day #1 status post ground level fall. 2. Acute intra-falcine subdural hematoma. 3. Acute hypokalemia. 4. Acute hypophosphatemia. PLAN: 1. Correct abnormal electrolytes. 2. Increase activity per Physical and Occupational Therapy. 3. The patient is neurologically and hemodynamically stable for transfer to general surgical floor. 4. Anticipate discharge to home versus inpatient rehabilitation in the next 24 hours. Job ID: [id number]
[2018-12-05 14:46] LABS: Potassium 3.5 mmol/L (3.5-5.1)
[2018-12-05] MEDS: Rifaximin 550 MG TAB PO SCH (20:53)
--- NOTE | 2018-12-05 22:48 | PRG ---
DATE OF SERVICE: 12/05/2018 SUBJECTIVE: The patient was seen today on evening rounds. He reported that his pain was well controlled. He was alert and oriented x3, and his altered mental status from the time of admission has resolved. He had no complaints and all questions were answered at the time of my evaluation. OBJECTIVE: VITAL SIGNS: Reviewed. The patient is afebrile, hemodynamically stable, and saturating 100% on room air. CARDIAC: Regular rate and rhythm with a mid systolic murmur. PULMONARY: Equal chest rise and fall. Clear breath sounds bilaterally. No signs of acute respiratory distress. ABDOMEN: Soft, nontender, and nondistended. EXTREMITIES: 2+ pulses in all extremities. No significant swelling noted. Gross motor and sensation are intact. NEUROLOGIC: GCS is 15. Alert and oriented x3. Gross motor and sensation are intact. ASSESSMENT: 1. Status post ground-level fall. 2. Acute intra-falcine subdural hematoma, stable. 3. Acute hypokalemia, improving. 4. Acute hypophosphatemia, stable. PLAN: Electrolytes were rechecked this afternoon and the potassium resulted as 3.5 from 2.8 after receiving oral replacement. Continue with current plan from Day Team. Continue physical and occupational therapy. The patient is pending placement at a rehab facility versus maybe able to be discharged home after a physical therapy evaluation. The patient still continues to have glucoses over 200. We will increase the insulin sliding scale to a moderate scale at this time. The patient is still in the ICU and is pending a bed on the floor at this time. Job ID: [id number]
[2018-12-06 05:33] LABS: #Lymphocytes 1.9 thou/uL (1.20-3.40); #Monocytes 0.4 thou/uL (0.11-0.59); #Neutrophils 3.7 thou/uL (1.40-6.50); %Basophils 0.5 % (0.0-1.0); %Eosinophils 14.1 % (0.0-10.0); %Lymphocytes 27.1 % (21.0-51.0); %Monocytes 5.9 % (0.0-10.0); %Neutrophils 52.4 % (42.0-75.0); Hemoglobin 12.8 g/dL (14.0-18.0); Mean Corpuscular HGB CONC 35.4 g/dL (32.0-36.0); Mean Corpuscular Hemoglobin 35.2 pg (27.0-31.0); Mean Corpuscular Volume 99.4 fL (78.0-98.0); Mean Platelet Volume 7.1 fL (7.4-10.4); Platelet Count 172 thou/uL (130-400); RBC Distribution Width 13.2 % (11.5-14.5); Red Blood Cell (RBC) Count 3.64 mill/uL (4.70-6.10)
[2018-12-06] MEDS: Insulin Regular 300 UNITS/3 ML VIAL SC PRN ×2 (05:46→10:46)
[2018-12-06 06:18] LABS: Anion Gap 9 mmol/L (10-20); BUN (Urea Nitrogen) 16 mg/dL (8.4-25.7); Calc. Creatinine Clearance 85 mL/min (70-130); Calcium 9.9 mg/dL (7.8-10.44); Carbon Dioxide 28 mmol/L (23-31); Chloride 103 mmol/L (98-107); Estimated GFR-MDRD 89; Glucose 168 mg/dL (83-110); Magnesium 2.1 mg/dL (1.6-2.6); Phosphorus 2.2 mg/dL (2.3-4.7); Potassium 3.6 mmol/L (3.5-5.1); Sodium 136 mmol/L (136-145)
[2018-12-06] MEDS ORDERED: Potassium Phosphate 30 MMOL in Sodium Chloride 0.9% 250 ML 250 ML IVPB SCH (08:15)
[2018-12-06] MEDS ORDERED: Insulin Glargine 15 UNITS in Pre-Filled Syringe 1 EACH SC SCH (09:00)
[2018-12-06] MEDS: Gabapentin 100 MG CAP PO SCH (10:45)
[2018-12-06] MEDS: Famotidine 20 MG TAB PO SCH (10:45)
[2018-12-06] MEDS: Rifaximin 550 MG TAB PO SCH (10:50)
[2018-12-06 15:25] VITALS: BP 131/64; TEMP 98.3
--- NOTE | 2018-12-07 03:49 | DIS ---
DATE OF ADMISSION: 12/04/2018 DATE OF DISCHARGE: 12/06/2018 This is Domitila Ji NP dictating a report for Terrell Castellanos DO. CONSULTS: Neurosurgery, Dr. Hernandez. PROCEDURES: 1. On 12/04/2018, brain CT; impression, acute right parafalcine subdural hematoma measuring 8 mm in maximum thickness. Small acute left temporal subdural hematoma measuring 4 mm in maximum thickness. Volume loss and chronic small vessel ischemic change. No midline shift. Ventricles normal. 2. Chest x-ray on 12/04/2018; impression, cardiomegaly without overt CHF. 3. On 12/04/2018, humerus x-ray left, impression, left proximal humeral fracture. 4. Shoulder x-ray, left; impression, fracture involving the left proximal humerus surrounding immature callus formation. PRIMARY DIAGNOSES: Status post ground level fall, acute intra-falcine subdural hematoma. Acute hypokalemia, resolved. Left humerus fracture, nonoperative. SECONDARY DIAGNOSES: Cirrhosis, insulin-dependent diabetes, atrial fibrillation, hypertension, congestive heart failure, hypothyroidism, hepatic encephalopathy. DISCHARGE MEDICATIONS: 1. Gabapentin 100 mg b.i.d. 2. DuoNeb q.4 hours as needed. 3. Lactulose. 4. Levofloxacin 250 mg until 12/09, for UTI. 5. Potassium chloride 20 mEq daily. 6. Rifaximin 550 mg p.o. b.i.d. 7. Lantus 15 units subcu b.i.d. 8. NovoLog 20 units subcu 3 times a day. 9. Zaroxolyn 2.5 mg p.o. daily. 10. Spironolactone 25 mg b.i.d. 11. Torsemide 20 mg three times a day. DISCONTINUED MEDICATIONS: Xarelto. HISTORY OF PRESENT ILLNESS AND HOSPITAL COURSE: This is an 83-year-old man who has a history of hepatic encephalopathy, who has been noncompliant on his lactulose. The patient slipped and fell on the floor. The patient denied any loss of consciousness, but thinks he may have struck his head. The patient was evaluated in the emergency room and found to have a subdural hematoma. The patient takes Xarelto for atrial fibrillation. The patient with elevated ammonia level and a urinary tract infection on admission. Neurosurgery was consulted. Repeat CT scan the next day was stable. The patient has been held from his [facility]. The patient progressed with physical therapy. The patient remained with a GCS of 15 throughout hospital stay. On the day of discharge, the patient was examined by Dr. Castellanos. The patient nor did the family have any complaints. The patient's vital signs were stable on the day of discharge. The patient's exam was unremarkable including cardiopulmonary and GI exam. The patient was deemed stable for discharge to inpatient rehab for continued physical and occupational therapy. DISPOSITION: Stable. LOCATION: Inpatient rehab. DIET: Diabetic diet, consistent carb 1800. ORTHOPEDIC LIMITATIONS: None. FOLLOWUP: Follow up with Neurosurgery in 4 weeks. Follow up with primary care physician. No need to follow up with Trauma Services, call for any questions. Job ID: [id number]
--- NOTE | 2018-12-09 08:42 | PQF ---
[employer] Crystal Reports Winform ViewerBREE LONG MOHIT CODY Fernandez [id number] CLINICAL DOCUMENTATION CLARIFICATION FORM: POST DISCHARGE Addendum to original discharge summary date: ____ Late entry note date: __ DATE: 12/09/2018 ATTN:CODY RUEDA Please exercise your independent, professional judgment in responding to the clarification form. Clinical indicators are provided on the bottom of this form for your review Please check appropriate box(s): [x ] Hepatic Encephalopathy: Type: [ x ] Acute [ ] Subacute [ ] Chronic [ ] Etiology: [ ] Hypertensive [ ] Metabolic [ ] Toxic [ ] Hepatic with Coma [ ] Hypoxic [ ] Septic [ ] Unspecified [ ] Other diagnosis [ ] Unable to determine For continuity of documentation, please document condition throughout progress notes and discharge summary. Thank You. CLINICAL INDICATORS - SIGNS / SYMPTOMS / LABS -Hepatic encephaloapthy-DS, 12/06, Domitila Ji -elevated ammonia level and UTI on admission-DS, 12/06, Domitila Ji -AMS sec to UTI-H&P, 12/04, Mickie Fitzgerald PA-C -status post ground level fall-H&P, 12/04, Mickie Fitzgerald PA-C -Ammonia: 142H-Laboratory , 12/04 RISK FACTORS -Hypokalemia-H&P, 12/04, Mickie Fitzgerald PA-C -Small subdural hematoma on xerellto-Progress note, 12/04, Isac Griffiths PA-C -he has basline dementia-Progress note, 12/08, Mary Box MD TREATMENTS: -Lactulose. 60gm P.O- MAR, 12/04 -Sodium chloride.IV, MAR, 12/05 -Lavaquin.IV-12/04 MTDD
--- NOTE | 2018-12-09 10:09 | EKG ---
Test Reason : Blood Pressure : / mmHG Vent. Rate : 080 BPM Atrial Rate : 072 BPM P-R Int : 000 ms QRS Dur : 120 ms QT Int : 412 ms P-R-T Axes : 000 -43 064 degrees QTc Int : 475 ms Atrial fibrillation Left axis deviation Septal infarct , age undetermined Abnormal ECG Confirmed by KYRA VELA, JUAN A ([id number]), research editor CHRISTIN CORRAL ([id number]) on 12/09/2018 10:08:49 AM Referred By: Confirmed By:JUAN A RAE MD
== END 2018-12-06 18:54 | DRG 85 ==
LOC: ERS 02:16 → CCU 04:20 → SURG A 12-05 23:58
PROVIDERS: ADMIT Surgery; ATTEND Surgery
DX: S06.5X0A Traumatic subdural hemorrhage without loss of consciousness, initial encounter (principal); K72.00 Acute and subacute hepatic failure without coma; S42.202A Unspecified fracture of upper end of left humerus, initial encounter for closed fracture; N39.0 Urinary tract infection, site not specified; I13.0 Hypertensive heart and chronic kidney disease with heart failure and stage 1 through stage 4 chronic kidney disease, or unspecified chronic kidney disease; G93.49 Other encephalopathy; E87.6 Hypokalemia; E03.9 Hypothyroidism, unspecified; I48.91 Unspecified atrial fibrillation; I50.9 Heart failure, unspecified; W01.0XXA Fall on same level from slipping, tripping and stumbling without subsequent striking against object, initial encounter; K72.10 Chronic hepatic failure without coma; N18.9 Chronic kidney disease, unspecified; E11.22 Type 2 diabetes mellitus with diabetic chronic kidney disease; E83.39 Other disorders of phosphorus metabolism; Z96.651 Presence of right artificial knee joint; Y93.9 Activity, unspecified; Y92.009 Unspecified place in unspecified non-institutional (private) residence as the place of occurrence of the external cause; Z91.14 Patient's other noncompliance with medication regimen; Z79.01 Long term (current) use of anticoagulants; Z79.4 Long term (current) use of insulin; Z90.49 Acquired absence of other specified parts of digestive tract; Z87.891 Personal history of nicotine dependence; Z88.0 Allergy status to penicillin
CPT/HCPCS: 36415; 36416; 70450; 71045; 80048; 80053; 81003; 81015; 82140; 82550; 83735; 83880; 84100; 84484; 85025; 85610; 85730; 87077; 87086; 87186; 93005; 96361; 96365; G0390; J0131; J1815; J1956; J3480; J7050

== ENCOUNTER 2019-01-25 09:13 | Outpatient (CLI) | payer MEDICARE, BC ==
--- NOTE | 2019-01-25 09:44 | CT ---
CT HEAD WITHOUT IV CONTRAST COMPARISON: 12/05/2018 HISTORY: Follow-up subdural hemorrhage after a fall TECHNIQUE: Axial CT imaging at 5 mm intervals from vertex through skull base without contrast FINDINGS: The previously seen posterior right parafalcine subdural hemorrhage as well as hemorrhage along the r ight tentorium has resolved. There has also been interval resolution of the subarachnoid hemorrhage previously seen at the level of the basilar cisterns and anterior to the cervical medullary junction. No intraparenchymal or extra-axial hemorrhage is identified on today's exam. Decreased attenuation is again seen in the periventricular white matter likely reflective of chronic small vessel ischemic changes. There is no evidence of an acute infarction, mass effect, or midline shift. The ventricular system is normal in size, shape, and position. Mild cerebral and cerebellar volume loss i s again noted. Again noted is partial opacification of the right sphenoid sinus with minimal improvement in aeration . Mastoid air cells are clear. Osseous structures appear intact. IMPRESSION: 1. No acute intracranial abnormality demonstrated. 2. Resolution of the right parafalcine and right tentorial subdural hemorrhage as well as subarachnoi d hemorrhage noted on prior exam. 3. Small vessel ischemic changes and cerebral volume loss unchanged from prior study. 4. Partial opacification right sphenoid sinus.
== END 2019-01-25 09:14 | disposition home or self-care (01) ==
LOC: TBSIIMAG 09:13
PROVIDERS: ATTEND Neurological Surgery
DX: S06.5X0A Traumatic subdural hemorrhage without loss of consciousness, initial encounter (principal); I67.82 Cerebral ischemia; G93.89 Other specified disorders of brain; J34.89 Other specified disorders of nose and nasal sinuses
CPT/HCPCS: 70450

== ENCOUNTER 2019-02-14 08:14 | Outpatient (CLI) | payer MEDICARE, BC ==
--- NOTE | 2019-02-14 10:44 | RAD ---
CHEST 2 VIEWS: Date: 02/14/19 COMPARISON: 05/23/18, 09/18/18, 12/04/18. HISTORY: Dyspnea. FINDINGS: Atherosclerosis of the aorta. Enlarged cardiac silhouette. Pulmonary vessels and hilum are normal. Bl unting of right costophrenic angle likely due to small effusion. Atelectatic changes in the lung base s are noted. Patchy interstitial opacities are noted. Patchy interstitial opacities may represent chr onic change. Edema or infiltrate cannot be entirely excluded. No pneumothorax. Lungs are hyperinflate d. No osseous abnormalities. IMPRESSION: 1. Cardiomegaly. 2. Increased interstitial prominence which may represent chronic change. Edema and/or infiltrate can not be excluded. 3. Lungs are hyperinflated. 4. Atherosclerosis. POS: [facility]
== END 2019-02-14 08:15 | disposition home or self-care (01) ==
LOC: RAD 08:14
PROVIDERS: ATTEND Internal Medicine Critical Care Medicine
DX: R06.00 Dyspnea, unspecified (principal); R91.8 Other nonspecific abnormal finding of lung field; I70.0 Atherosclerosis of aorta; I51.7 Cardiomegaly
CPT/HCPCS: 71046

== ENCOUNTER 2019-03-25 10:58 | Inpatient (IN) | payer MEDICARE, BC ==
--- NOTE | 2019-03-25 11:34 | RAD ---
Chest AP view INDICATION: Shortness of breath and fluid retention COMPARISON: 2 views the chest dated February 14, 2019 FINDINGS: Lungs:There is perihilar airspace edema Cardiac silhouette:There is moderate to severe cardiomegaly Pulmonary vasculature:Moderate to severe pulmonary vascular congestion. Pleural spaces:Small bilateral pleural effusions Upper abdomen:No abnormality seen. Osseous structures: No acute osseous abnormality. Additional findings:None. IMPRESSION: Moderate CHF
[2019-03-25 11:40] LABS: #Eosinphils 0.8 thou/uL (0.0-0.7); #Lymphocytes 1.2 thou/uL (1.20-3.40); #Monocytes 0.4 thou/uL (0.11-0.59); #Neutrophils 4.3 thou/uL (1.40-6.50); %Basophils 0.6 % (0.0-1.0); %Eosinophils 12.4 % (0.0-10.0); %Lymphocytes 17.3 % (21.0-51.0); %Monocytes 5.7 % (0.0-10.0); %Neutrophils 63.9 % (42.0-75.0); Hemoglobin 13.6 g/dL (14.0-18.0); Mean Corpuscular HGB CONC 32.5 g/dL (32.0-36.0); Mean Corpuscular Hemoglobin 33.6 pg (27.0-31.0); Platelet Count 154 thou/uL (130-400); RBC Distribution Width 14.8 % (11.5-14.5); Red Blood Cell (RBC) Count 4.05 mill/uL (4.70-6.10); White Blood Cell (WBC) Count 6.7 thou/uL (4.8-10.8)
[2019-03-25] MEDS ORDERED: Nitroglycerin 2% Ointment 1 INCH/1 GM Packet ONE (11:46)
[2019-03-25] MEDS ORDERED: Furosemide 40 MG/4 ML VIAL ONE (11:46)
[2019-03-25 11:48] LABS: INR-International Normal Ratio 1.3; PTT 37.5 SEC (22.9-36.1); Prothrombin Time 15.9 SEC (12.0-14.7)
[2019-03-25 12:01] LABS: ALT (SGPT) 23 U/L (8-55); AST (SGOT) 29 U/L (5-34); Albumin 3.6 g/dL (3.4-4.8); Alkaline Phosphatase 308 U/L (40-110); Anion Gap 12 mmol/L (10-20); BUN (Urea Nitrogen) 20 mg/dL (8.4-25.7); Bilirubin, Total 1.6 mg/dL (0.2-1.2); Calc. Creatinine Clearance 0 mL/min (70-130); Calcium 9.4 mg/dL (7.8-10.44); Carbon Dioxide 30 mmol/L (23-31); Chloride 102 mmol/L (98-107); Estimated GFR-MDRD 56; Globulin 3.8 g/dL (2.4-3.5); Glucose 133 mg/dL (83-110); Potassium 3.8 mmol/L (3.5-5.1); Protein, Total 7.4 g/dL (5.8-8.1); Sodium 140 mmol/L (136-145)
--- NOTE | 2019-03-25 12:12 | PDOC.FPRHP ---
- History of Present Illness Chief Complaint: SOB History of Present Illness: Mr. Bell is an 83 y/o male with a PMH significant for CHF, DM2, HTN , cirrhosis and A-Fib who presents to the ED with his son and for SOB. The patient states that he had been experiencing SOB for the past week or so and that his SOB increased following the holiday. He also noted that he had increasing swelling in his lower extremities, worsening LEDEZMA and increasing distention in his abdomen. He states that he takes Lasix and Spironolactone daily but that he is unsure of the dosage. Additionally, he states that he typically follows a salt-restricted diet, but that he had a large meal for at a buffet restaurant. He endorses a dry cough for ~1 month, but denies N/V/D, fever, chills, chest pain, LE tingling/numbness, muscle aches/pains, ABD pain or tenderness, dysuria, bloody stools, syncopal episodes or recent traumatic falls. He received his flu shot this year and he typically ambulates with a seated walker. ED Course: Per the ED staff, Mr. Bell received Lasix and Nitro while being evaluated in the ED. An EKG showed rate-controlled A-Fib with no significant ST changes and a CXR revealed cardiomegaly with vascular congestion and bilateral pleural effusions. - Allergies/Adverse Reactions Allergies Allergy/AdvReac Type Severity Reaction Status Date / Time Penicillins Allergy Hives Verified 09/05/18 02:44 - Home Medications Medication Instructions Recorded Confirmed Type Potassium Chloride 20 meq PO DAILY 07/02/18 12/04/18 History Rifaximin [Xifaxan] 550 mg PO BID 07/02/18 12/04/18 History Spironolactone 25 mg PO BID 07/02/18 12/04/18 History Torsemide 1 tab PO TID 07/02/18 12/04/18 History Insulin Aspart [Novolog Flexpen] 20 unit SQ TID 09/05/18 12/04/18 History Insulin Degludec [Tresiba 20 unit SQ BID 09/05/18 12/04/18 History Flextouch U-200] Lactulose 30 gm PO QID 09/05/18 12/04/18 History Metolazone [Zaroxolyn] 2.5 mg PO DAILY 09/05/18 12/04/18 History Gabapentin [Neurontin] 100 mg PO BID cap 12/06/18 Rx Glucagon 1 mg IM PRN PRN vial 12/06/18 Rx Insulin Glargine [Lantus Vial] 15 units SC BID vial 12/06/18 Rx Lactulose 30 gm PO QID udcup 12/06/18 Rx Levofloxacin [Levaquin] 250 mg PO 0600 tab 12/06/18 Rx Comments: The above-mentioned medications were verified with the patient and his son at the time of evaluation. - History PMHx: CHF, A-Fib, Cirrhosis, PE (09/2018), HTN, Hypothyroidism, IDDM PSHx: TKA (R), Cholecystectomy, Thyroidectomy FHx: Son ([place] at age 56) Social: Endorsed remote EtOH abuse - last drink was > 10 years prior. Denies tobacco and drug abuse. Allergies: Penicillin (Hives) Code: Full - Review of Systems General: reports: weight/appetite/sleep changes. denies: fever/chills, night sweats, fatigue Eyes: denies: vision changes ENT: denies: nasal congestion, rhinorrhea Respiratory: reports: cough, shortness of breath, exercise intolerance. denies : congestion Cardiovascular: reports: edema. denies: chest pain, palpitation Gastrointestinal: reports: diarrhea, abdominal pain (Due to distention). denies : nausea, vomiting, constipation Skin: denies: rashes, lesions, jaundice Musculoskeletal: reports: swelling. denies: pain, tenderness, stiffness Neurological: denies: syncope, weakness - Vital signs BP: 138/77, MAP: 97, Pulse: 75, Resp: 17, Temp: 97.8 (Oral), Pain: 0, O2 sat: 97 on (Room Air), Time: 03/25/2019 12:11. Weight 117.9kg - Physical Exam Constitutional: NAD, awake, alert and oriented, well developed HEENT: normocephalic and atraumatic, PERRLA, EOMI, conjunctiva clear, grossly normal vision, grossly normal hearing, MMM -HEENT: mild scleral icterus; dentures present Neck: supple, FROM, no JVD Chest: no-tender to palpation, no lesions Heart: pulses present -Heart: Irregularly irregular rhythm with 3/6 systolic murmur her throughout the precordium. +3 Pitting Edema to the Knees, bilaterally. Lungs: no respiratory distress, good air movement, no rales/rhonchi, no wheezing -Lungs: scant crackles in b/l lung bases Abdomen: soft, non-tender, bowel sounds present, no masses/distention, no hernias Musculoskeletal: ROM grossly normal Neurological: no focal deficit -Neurological: No asterixis. Skin: good turgor, capillary refill <2 seconds, no jaundice -Skin: Bilateral chronic venous stasis changes in LEs. Heme/Lymphatic: no unusual bruising or bleeding, no purpura, no petechia, no LAD Psychiatric: normal mood and affect, good judgment and insight, intact recent and remote memory FMR H&P: Results - Labs Result Diagrams: 03/25/19 11:27 03/25/19 14:26 Lab results: WBC 6.7 thou/uL (4.8-10.8) 03/25/19 11:27 Hgb 13.6 g/dL (14.0-18.0) L 03/25/19 11:27 Hct 41.9 % (42.0-52.0) L 03/25/19 11:27 MCV 103.0 fL (78.0-98.0) H 03/25/19 11:27 Plt Count 154 thou/uL (130-400) 03/25/19 11:27 Neutrophils % 63.9 % (42.0-75.0) 03/25/19 11:27 Sodium 140 mmol/L (136-145) 03/25/19 11:27 Potassium 3.8 mmol/L (3.5-5.1) 03/25/19 11:27 Chloride 102 mmol/L (98-107) 03/25/19 11:27 Carbon Dioxide 30 mmol/L (23-31) 03/25/19 11:27 BUN 20 mg/dL (8.4-25.7) 03/25/19 11:27 Creatinine 1.24 mg/dL (0.7-1.3) 03/25/19 11:27 Glucose 133 mg/dL (83-110) H 03/25/19 11:27 Lactic Acid 1.5 mmol/L (0.5-2.2) 03/25/19 11:27 Calcium 9.4 mg/dL (7.8-10.44) 03/25/19 11:27 Total Bilirubin 1.6 mg/dL (0.2-1.2) H 03/25/19 11:27 AST 29 U/L (5-34) 03/25/19 11:27 ALT 23 U/L (8-55) 03/25/19 11:27 Alkaline Phosphatase 308 U/L (40-110) H 03/25/19 11:27 B-Natriuretic Peptide 59.3 pg/mL (0-100) 03/25/19 11:27 Serum Total Protein 7.4 g/dL (5.8-8.1) 03/25/19 11:27 Albumin 3.6 g/dL (3.4-4.8) 03/25/19 11:27 FMR H&P: A/P - Problem List (1) LEONARDO on CPAP Current Visit: No Status: Chronic Code(s): G47.33 - OBSTRUCTIVE SLEEP APNEA (ADULT) (PEDIATRIC); Z99.89 - DEPENDENCE ON OTHER ENABLING MACHINES AND DEVICES (2) Obesity (BMI 30.0-34.9) Current Visit: No Status: Chronic Code(s): E66.9 - OBESITY, UNSPECIFIED (3) CHF exacerbation Current Visit: Yes Status: Acute Code(s): I50.9 - HEART FAILURE, UNSPECIFIED (4) Chronic a-fib Current Visit: No Status: Chronic Code(s): I48.2 - CHRONIC ATRIAL FIBRILLATION * DO NOT USE * Comment: rate controlled, on Xarelto (5) DM2 (diabetes mellitus, type 2) Current Visit: No Status: Chronic Qualifiers: Diabetes mellitus shelter insulin use: with shelter use Diabetes mellitus complication status: with circulatory complication Diabetes mellitus complication detail: with other circulatory complications Qualified Code(s): E11.59 - Type 2 diabetes mellitus with other circulatory complications; Z79.4 - termite exterminator (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 1. CHF Exacerbation -HPI and chart review of medication list are suspicious for medication non- compliance and/or poor diet compliance -Physical exam remarkable for increased work of breathing, mild bibasilar crackles and +3 pitting edema -CXR: Cardiomegaly with pulmonary congestion and pleural effusions, bilaterally -Trops: < 0.01 -BNP: 59 -Echo: Pending -Furosemide IV 60 mg Q6H -Daily Weights / Strict I&Os -Consider augmenting w/ Metolazone if diuresis remains poor 2. A-Fib -EKG: A-Fib, rate-controlled -Trops: < 0.01 -Continue home Xarelto regimen -Echo: Pending 3. HTN -BP: 138/77 on 03/25 -Restart patient's home medication regimen 4. DM2 -Restart home medication regimen -Mild SSI -Accuchecks QACHS 5. Cirrhosis -Per patient, currently well-controlled with home medication regimen for > 3 bowel movements per days -Restart home Lactulose regimen -Consider ABD US for cirrhosis-related causes of SOB 6. LEONARDO -Per patient, -Consult RT for CPAP and appropriate calibration -Discontinue if patient is unable to tolerate Code: Full Diet: Heart Health, w/ Salt Restriction Activity: Ambulate w/ Assist VTE PPx: SCDs Dispo: Patient admitted to the Telemetry Floor for observation of CHF exacerbation. Initiate fluid diuresis per above, await echo results and monitor fluid status with daily weights and I&Os. Expected LOS < 48H. FMR H&P: Upper Level - Pertinent history This is an 83yo M who presented to the ER for CHF exacerbation. Reported a dry cough for about a month and worsening SOB over the last week. He states it got exceptionally worse over the last 2-3 days which prompted him to come to the ER. He states he feels his abdomen is more distended then usual. He also endorses swelling in the LE more than normal. He reports taking lasix and spironolactone. Reports has not missed a dose. He reports he is on a salt restricted diet and has been compliant. However, patient states that they went to [facility] for Thanksgiving. Patient denies any NV, chest pain. Reports walking with a walker. Denies any urinary issues. Reports some diarrhea related to the lactulose. Reports seeing Dr. Herndon about 3 mo ago. - Pertinent findings All PMH reviewed and listed in interns hx. PE: General: NAD, morbidly obese M HEENT: NC/AT, dentures, mild scleral icterus Cardio: irregularly irregular, 3/6 systolic murmur, 3+pitting edema b/l LE Resp: Minimal crackles at b/l lung bases, no wheezes or rhonchi Abd: abd distention, no tenderness, fluid wave present, no asterixis MSK: 3+pitting edema b/l LE to level of knees, moves all limbs Neuro: AXOX 3, CN II-XII intact Skin: no rashes or lesions noted - Plan Date/Time: 03/25/19 1212 I, Ruby Fofana MD, have evaluated this patient and agree with findings/plan as outlined by manager internal resident. Pertinent changes/additions are listed here. #Mild CHF exacerbation Patient with BNP at baseline but symptoms of fluid overload, cough and SOB. EKG with no changes. s/p lasix in ED. - Will continue lasix q6hrs. - Strict I/Os - Elevate head of the bed - Monitor O2 sats - Echo pending. Last echo in Mar 2018 showing normal EF, diastolic dysfunction. Sees Dr. Herndon outpatient. #Hx of Afib, rate controlled On xarelto - admit to tele for monitoring - home meds #HTN - home meds #Liver Cirrhosis Patient with hx of alcohol use. Quit 10 yrs ago. Previous abd US showing nodular liver with some ascites. - Can consider abdominal US to evaluate for ascites. Giving lasix so can see if this gets enough fluid off, if not patient may need paracentesis due to discomfort from abdominal distention. - ammonia pending #IDDM - continue home meds, mild SS - A1c pending; last one in July 2018 11 #LEONARDO patient with previously diagnosed LEONARDO but does not use CPAP at home - Will add CPAP for use at night while here Hx of Subdural hematoma - seen in Nov 2018 by trauma Code: FULL VTE ppx: lovenox PCP: Nito Dispo: admit to tele obs, LOS <48hrs. Case discussed with Dr. Fernandez Addendum - Attending - Attending Attestation Date/Time: 03/25/19 1234 I personally evaluated the patient and discussed the management with the team. I agree with the History, Examination, Assessment and Plan documented above with any addition or exceptions noted below.
[2019-03-25] MEDS ORDERED: Ondansetron ODT 4 MG TAB SL PRN (13:48)
[2019-03-25] MEDS ORDERED: Ondansetron PF 4 MG/2 ML Vial IVP PRN (13:48)
[2019-03-25 14:36] VITALS: BMI 39.2
[2019-03-25] MEDS ORDERED: Dextrose 50% Abboject 50 ML SYRINGE SLOW IVP PRN (14:58)
[2019-03-25] MEDS ORDERED: Dextrose 5% in Water 1,000 ML IV PRN (14:58)
[2019-03-25 15:01] LABS: ALT (SGPT) 22 U/L (8-55); AST (SGOT) 28 U/L (5-34); Albumin 3.8 g/dL (3.4-4.8); Alkaline Phosphatase 310 U/L (40-110); Anion Gap 10 mmol/L (10-20); BUN (Urea Nitrogen) 20 mg/dL (8.4-25.7); Bilirubin, Total 1.7 mg/dL (0.2-1.2); Calc. Creatinine Clearance 81 mL/min (70-130); Calcium 9.5 mg/dL (7.8-10.44); Carbon Dioxide 36 mmol/L (23-31); Chloride 99 mmol/L (98-107); Estimated GFR-MDRD 55; Globulin 3.8 g/dL (2.4-3.5); Glucose 112 mg/dL (83-110); Protein, Total 7.6 g/dL (5.8-8.1); Sodium 141 mmol/L (136-145)
[2019-03-25 15:06] LABS: Troponin I 0.025 ng/mL (< 0.028)
[2019-03-25 15:32] LABS: Hemoglobin A1c 7.6 % (4.0-6.0)
[2019-03-25] MEDS: Spironolactone 25 MG TAB PO SCH (16:33)
[2019-03-25] MEDS: Furosemide 40 MG/4 ML VIAL SLOW IVP SCH ×2 (17:37→23:36)
[2019-03-25] MEDS ORDERED: Rivaroxaban 10 MG TAB PO SCH (18:00)
[2019-03-25 18:45] LABS: Troponin I 0.027 ng/mL (< 0.028)
[2019-03-26] MEDS: Furosemide 40 MG/4 ML VIAL SLOW IVP SCH ×2 (05:16→11:53)
--- NOTE | 2019-03-26 05:39 | PDOC.FM ---
- Subjective Subjective: Mr. Dawn is doing well this morning. He states he is feeling better, but that his berry catheter is hurting him. - Objective MAR Reviewed: Yes Vital Signs & Weight: Vital Signs (12 hours) Temp Pulse Resp BP Pulse Ox 03/26/19 04:00 97.8 F 71 18 117/52 L 94 L 03/25/19 20:00 97.7 F 75 16 113/53 L 97 Weight Weight 122.612 kg I&O: 03/24/19 03/25/19 03/26/19 06:59 06:59 06:59 Intake Total 246 Output Total 1600 Balance -1354 Result Diagrams: 03/26/19 06:27 03/27/19 04:31 Phys Exam - Physical Examination Constitutional: NAD HEENT: PERRLA, moist MMs, sclera anicteric Neck: supple, full ROM Respiratory: no wheezing, no rales, no rhonchi, clear to auscultation bilateral Poor air movement Cardiovascular: RRR, no significant murmur, no rub Gastrointestinal: soft, non-tender Distended with fluid wave. Trace edema BLE. Neurological: non-focal, moves all 4 limbs Lymphatic: no nodes Psychiatric: normal affect, A&O x 3 Skin: no rash, normal turgor, cap refill <2 seconds Deviation from normal: Chronic venous stasis dermatitis BLE Dx/Plan - Plan Plan: 83 y/o male admitted for CHF exacerbation following 1 week of increasing SOB and LE edema. CHF Exacerbation, suspected He has a history of HFpEF (EF 55-60%) and has noted increasing SOB, LE Edema, and weight gain. However, his BNP 59.3 which does not correlate well with CHF exacerbation. His chest x-ray was consistent with pulmonary congestion and pleural effusions. Will further diurese today and repeat chest x-ray. It is likely that his fluid status is multifactorial. CXR: Cardiomegaly with pulmonary congestion and pleural effusions, bilaterally I/O -1354mL in last 24 hours. Will continue to diurese and monitor fluid status. ECHO pending. Last echo 03/2018 HFpEF (55-60%) w/ severely elevated pulmonary artery pressure. He sees Dr. Herndon and Dr. Amaya as an outpatient. We will consult them today for better management of his disease process. Atrial fibrillation, chronic EKG: A-Fib He is on Xarelto for anticoagulation HTN Has been normotensive since admission. Will monitor and restart home medications when needed. DM2 Restart home medication regimen: Tresiba 20u BID Mild SSI Accuchecks QACHS Cirrhosis, etiology unclear Notes from prior admission say possibly related to non-alcoholic fatty liver disease. Per patient, currently well-controlled with home medication regimen for > 3 bowel movements per days Restart home Lactulose regimen LEONARDO Per patient, Consult RT for CPAP and appropriate calibration H/o subdural hemorrhage He is not sure if he has discontinued xarelto or not. His son states that it was discontinued, however it was entered as a current home medication. Will clarify with PCP / Dr. Herndon. Code: Full Diet: Heart Health, w/ Salt Restriction Activity: Ambulate w/ Assist VTE PPx: SCDs Dispo: Patient admitted to the Telemetry Floor for observation of CHF exacerbation. Initiate fluid diuresis per above, await echo results and monitor fluid status with daily weights and I&Os. Expected LOS < 48H. Addendum - Attending - Attending Attestation Date/Time: 03/27/19 1120 I personally evaluated the patient and discussed the management with Dr. Dunn yesterday. I agree with the History, Examination, Assessment and Plan documented above with any addition or exceptions noted below. Mr Bell had diffusely diminished breath sounds on my exam. ABG was ordered for further eval.
[2019-03-26] MEDS: Levothyroxine Sodium 112 MCG TAB PO SCH (06:34)
[2019-03-26 06:44] LABS: #Eosinphils 0.5 thou/uL (0.0-0.7); #Lymphocytes 0.8 thou/uL (1.20-3.40); #Monocytes 0.4 thou/uL (0.11-0.59); #Neutrophils 3.7 thou/uL (1.40-6.50); %Basophils 0.5 % (0.0-1.0); %Monocytes 6.8 % (0.0-10.0); %Neutrophils 68.7 % (42.0-75.0); Mean Corpuscular Hemoglobin 33.4 pg (27.0-31.0); Mean Platelet Volume 7.4 fL (7.4-10.4); Platelet Count 131 thou/uL (130-400); RBC Distribution Width 14.4 % (11.5-14.5); Red Blood Cell (RBC) Count 3.58 mill/uL (4.70-6.10); White Blood Cell (WBC) Count 5.3 thou/uL (4.8-10.8)
[2019-03-26 07:01] LABS: Anion Gap 13 mmol/L (10-20); BUN (Urea Nitrogen) 21 mg/dL (8.4-25.7); Calc. Creatinine Clearance 77 mL/min (70-130); Calcium 9.1 mg/dL (7.8-10.44); Carbon Dioxide 32 mmol/L (23-31); Chloride 101 mmol/L (98-107); Estimated GFR-MDRD 53; Glucose 198 mg/dL (83-110); Potassium 3.8 mmol/L (3.5-5.1); Sodium 142 mmol/L (136-145)
[2019-03-26] MEDS ORDERED: Rivaroxaban 2.5 MG TAB PO SCH (09:00)
[2019-03-26] MEDS ORDERED: Non-Formulary Item 1 EACH (Insulin Degludec [Tresiba Flextouch U-200] 20 UNIT) SQ SCH (09:00)
[2019-03-26] MEDS: Spironolactone 25 MG TAB PO SCH ×2 (09:23→17:21)
[2019-03-26] MEDS: Rifaximin 550 MG TAB PO SCH ×2 (09:23→20:35)
[2019-03-26] MEDS: Aspirin Chewable 81 MG TAB PO SCH (09:24)
[2019-03-26] MEDS: Insulin Glargine 20 UNITS in Pre-Filled Syringe 1 EACH SC SCH ×2 (09:26→20:36)
[2019-03-26] MEDS: HumaLOG 300 UNITS/3 ML VIAL SC PRN ×2 (11:56→17:21)
[2019-03-26 13:21] LABS: Actual Bicarbonate (HCO3a) 32.7 mEq/L (22-28); Base Excess (BEa) 7.4 mEq/L (-2.0 to +3.0); CO2 Tension 49.2 mmHg (35.0-45.0); Calcium, Ionized 1.12 mmol/L (1.12-1.30); Hemoglobin (Hb) 12.9 g/dL (14.0-18.0); O2 Tension (PaO2) 61.9 mmHg (> 60.0); Potassium - ABG Lab 3.96 mmol/L (3.70-5.30); pH, Arterial 7.44 (7.35-7.45)
[2019-03-26 13:26] LABS: Puncture Site RRA
[2019-03-26 15:32] LABS: Anion Gap 12 mmol/L (10-20); BUN (Urea Nitrogen) 21 mg/dL (8.4-25.7); Calc. Creatinine Clearance 78 mL/min (70-130); Carbon Dioxide 33 mmol/L (23-31); Chloride 99 mmol/L (98-107); Estimated GFR-MDRD 53; Glucose 206 mg/dL (83-110); Potassium 3.9 mmol/L (3.5-5.1); Sodium 140 mmol/L (136-145)
--- NOTE | 2019-03-26 17:43 | CON ---
DATE OF CONSULTATION: 03/26/2019 SERVICE: Pulmonary Medicine. REASON FOR CONSULTATION: Respiratory failure. HISTORY OF PRESENT ILLNESS: The patient is an 83-year-old white male with past medical history significant for diastolic heart failure and recurrent anasarca, multifactorial. He was in his usual state of health when he started having increasing abdominal swelling, lower extremity swelling, and dyspnea that limited his activity. He started having orthopnea. He presented to the emergency department and was discovered to be floridly volume overloaded. His BNP was low , because he was volume up, he was given some Lasix. He had a profound improvement in symptoms overnight. He previously indicated his belly was so hard that he could not push it in. Now, it is much softer. With this, his breathing has significantly improved. He denies any fevers, chills, cough, sputum production, nausea, or vomiting that preceded this. He ended up getting catheterized. Since then, he has had a little dysuria, but this did not predate the catheterization. Otherwise, he is returning to his usual state of health. He has no specific complaints. PAST MEDICAL HISTORY: 1. Atrial fibrillation. 2. Cirrhosis. 3. History of PE. 4. Hypertension. 5. Dyslipidemia. 6. Type 2 diabetes mellitus, requiring insulin. 7. Chronic diastolic heart failure. PAST SURGICAL HISTORY: 1. TKA on the right. 2. Cholecystectomy. 3. Thyroidectomy. FAMILY HISTORY: Noncontributory. SOCIAL HISTORY: He drank alcohol remotely. His last drink was over 10 years ago. Denies any tobacco or illicit drug use. He has no exposure to chemicals, dust, asbestos, or tuberculosis. ALLERGIES: PENICILLIN CAUSES HIVES. MEDICATIONS: List of his inpatient medications was reviewed. No specific updates were made. REVIEW OF SYSTEMS: General; head, ears, eyes, nose, throat; cardiovascular; respiratory; GI; ; musculoskeletal; neurologic; and skin are negative except as mentioned in the HPI. PHYSICAL EXAMINATION: VITAL SIGNS: Afebrile, pulse 73, blood pressure 111/70, respirations 20, and saturation 93% on room air currently. GENERAL: The patient is awake and alert, in no apparent distress. LUNGS: Decent air entry with no prolonged expiratory phase, wheezing, crackles , or rhonchi present. HEART: Normal rate and regular. ABDOMEN: Soft. It is distended with ascites. No rebound or guarding is present. Bowel sounds are present. MUSCULOSKELETAL: No cyanosis or clubbing. There is diffuse 2 to 3+ pitting throughout. NEUROLOGIC: Grossly nonfocal. LABORATORY DATA: WBC 5.3, hemoglobin 12.0, platelets 131,000. INR 1.3. A pH 7.44, pCO2 of 49, pO2 of 62, corresponding to saturation 92% when the patient was on room air. Basic metabolic profile is completely unremarkable with a creatinine is downtrending to 1.29. Bicarb 33, likely at his baseline. TSH falls within the normal limits. Liver function studies were essentially unremarkable except for minimally elevated total bilirubin of 1.7. Troponins are negative x3, but were uptrending. Ammonia 50. IMAGING: Chest x-ray demonstrates cephalization, cardiomegaly. Lung volumes are quite small. Bilateral pleural effusions are likely present. Widened carinal angle is suggestive of left atrial dilation. ASSESSMENT: 1. Acute hypoxic respiratory failure, resolved. 2. Chronic hypercapnic respiratory failure. 3. Anasarca. 4. Cirrhosis. 5. Chronic diastolic heart failure. 6. Pulmonary hypertension, likely multifactorial. DISCUSSION AND PLAN: The BNP is falsely low because the patient's weight. Clinically, he is responding very nicely to Lasix. We need to continue to diurese him down to euvolemia. In the outpatient setting, he may be well served from a polysomnogram. My suspicion is that his pulmonary hypertension previously identified on the echocardiogram is multifactorial. I do not think that any additional investigation is absolutely necessary, presently. Pulmonary will continue to follow, though Dr. Amaya has an established relationship with Bell and we will assume care in the morning. 70 minutes have been devoted to this patient in various activities. I personally reviewed all imaging studies and laboratory data noted within this document. For fifty percent of this time, I was interacting with the patient at the bedside or coordinating care with the care team. For the remainder of the time I was immediately available to the patient in the hospital unit. Job ID: [id number] [id number]
[2019-03-27 05:10] LABS: ALT (SGPT) 18 U/L (8-55); AST (SGOT) 23 U/L (5-34); Albumin 3.4 g/dL (3.4-4.8); Alkaline Phosphatase 279 U/L (40-110); Anion Gap 14 mmol/L (10-20); BUN (Urea Nitrogen) 20 mg/dL (8.4-25.7); Calc. Creatinine Clearance 82 mL/min (70-130); Calcium 9.3 mg/dL (7.8-10.44); Carbon Dioxide 30 mmol/L (23-31); Chloride 101 mmol/L (98-107); Estimated GFR-MDRD 56; Globulin 3.5 g/dL (2.4-3.5); Glucose 99 mg/dL (83-110); Potassium 3.7 mmol/L (3.5-5.1); Protein, Total 6.9 g/dL (5.8-8.1); Sodium 141 mmol/L (136-145)
--- NOTE | 2019-03-27 06:15 | PDOC.FM ---
- Subjective Subjective: Mr. Dawn is doing well this morning. He states his breathing is better and his belly seems less protuberant. - Objective MAR Reviewed: Yes Vital Signs & Weight: Vital Signs (12 hours) Temp Pulse Resp BP Pulse Ox 03/27/19 03:15 97.6 F 70 16 138/83 93 L 03/26/19 20:26 98 F 99 20 142/87 H 90 L Weight Weight 122.612 kg I&O: 03/25/19 03/26/19 03/27/19 06:59 06:59 06:59 Intake Total 246 720 Output Total 1600 2550 Balance -1354 -1830 Result Diagrams: 03/26/19 06:27 03/27/19 04:31 Phys Exam - Physical Examination Constitutional: NAD HEENT: PERRLA, moist MMs Neck: supple, full ROM Respiratory: no wheezing, no rales, no rhonchi, clear to auscultation bilateral more air movement than yesterday. Cardiovascular: RRR, no significant murmur, no rub Gastrointestinal: soft, non-tender, positive bowel sounds trace edema bilaterally Neurological: non-focal, moves all 4 limbs Psychiatric: normal affect, A&O x 3 Skin: no rash, normal turgor, cap refill <2 seconds Dx/Plan - Plan Plan: 83 y/o male admitted for CHF exacerbation following 1 week of increasing SOB and LE edema. CHF Exacerbation CXR: Cardiomegaly with pulmonary congestion and pleural effusions, bilaterally I/O -1830mL in last 24 hours. Total output >3L. Will continue to monitor fluid status. ECHO showed EF of 50-55%. Mild LVH, Atrial fibrillation, Severely dilated LA, sclerosis of aortic valve. Cardiology and Pulmonology consulted yesterday, appreciate recommendations Atrial fibrillation, chronic EKG: Isauro-Shikha Was on Xarelto for anticoagulation, but has been held due to risk of bleeding. HTN Has been normotensive since admission, on home medications. DM2 Restart home medication regimen: Tresiba 20u BID Mild SSI Accuchecks ACHS Cirrhosis, etiology unclear Notes from prior admission say possibly related to non-alcoholic fatty liver disease. Per patient, currently well-controlled with lactulose for > 3 bowel movements per days LEONARDO Per patient and chart review from Dr. Amaya. He tried CPAP in a previous admission and did not tolerate it, so therefore he never set it up outpatient. 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 His son states that it was discontinued, however it was entered as a current home medication. Awaiting recommendations from Cardiology. At this time we are holding anticoagulation. Code: Full Diet: Heart Health, w/ Salt Restriction Activity: Ambulate w/ Assist VTE PPx: SCDs Dispo: Change to inpatient status, because he is likely to stay for at least 24- 48 more hours. Addendum - Attending - Attending Attestation Date/Time: 03/27/19 9916 I personally evaluated the patient and discussed the management with Dr. Dunn. I agree with the History, Examination, Assessment and Plan documented above with any addition or exceptions noted below.
[2019-03-27] MEDS: Furosemide 40 MG/4 ML VIAL SLOW IVP SCH ×2 (06:17→14:58)
[2019-03-27] MEDS: Levothyroxine Sodium 112 MCG TAB PO SCH (06:17)
[2019-03-27] MEDS: Spironolactone 25 MG TAB PO SCH ×2 (08:29→16:57)
[2019-03-27] MEDS: Aspirin Chewable 81 MG TAB PO SCH (08:29)
[2019-03-27] MEDS: Rifaximin 550 MG TAB PO SCH ×2 (08:30→20:58)
[2019-03-27] MEDS: Insulin Glargine 20 UNITS in Pre-Filled Syringe 1 EACH SC SCH ×2 (08:37→20:58)
--- NOTE | 2019-03-27 09:54 | CON ---
DATE OF CONSULTATION: REASON FOR CONSULTATION: Diastolic congestive heart failure and chronic atrial fibrillation. HISTORY OF PRESENT ILLNESS: Mr. Bell is a very pleasant 83-year-old gentleman, long history of diastolic congestive heart failure. The patient was admitted to this hospital with intractable ascites and peripheral edema with difficulty breathing. The patient does not have a history of chest pain or pressure, just shortness of breath and increasing amounts of lower extremity edema despite Lasix and spironolactone. PAST MEDICAL HISTORY: 1. History of chronic diastolic congestive heart failure. 2. History of ascites. 3. Chronic atrial fibrillation. CURRENT MEDICATIONS: The patient is taking; 1. Furosemide 60 mg IV twice a day. 2. Aspirin 81 mg a day. 3. Insulin. 4. Lactulose. 5. Spironolactone. ALLERGIES: PENICILLIN. SOCIAL HISTORY: No alcohol or tobacco abuse. REVIEW OF SYSTEMS: CONSTITUTIONAL: Positive for edema and shortness of breath. VISION: No changes. HEARING: No changes. PULMONARY: Positive for shortness of breath. CARDIAC: No chest pain. GASTROINTESTINAL: No nausea, vomiting, or diarrhea. SKIN: No rashes. NEUROLOGIC: No unilateral weakness or numbness. PSYCHIATRIC: No unusual depression or anxiety. PHYSICAL EXAMINATION: GENERAL: This is a delightful elderly gentleman. VITAL SIGNS: Blood pressure 138/83 and pulse 70 and it is irregular. HEENT: Eyes, sclerae nonicteric. Mouth, mucous membranes moist. NECK: Supple. No lymphadenopathy. LUNGS: Clear anteriorly and laterally. CARDIAC: Irregularly irregular with a 2 to 3/6 systolic murmur at left lower sternal border. ABDOMEN: Severe ascites. EXTREMITIES: There is moderate edema. PERTINENT LABORATORY DATA: Hemoglobin is 12. Creatinine is 1.23, potassium is 3.7, bilirubin is 2, and ALT is 23. Initial blood gas; pH of 7.44, pCO2 of 49, and pO2 of 62. Echocardiogram revealed an ejection fraction of 50% to 55% with right ventricular enlargement, moderate aortic stenosis not severe, mild aortic insufficiency, and elevated pulmonary pressure. EKG, atrial fibrillation. He has had 2 episodes recorded of nonsustained ventricular tachycardia, one 6 beats and one 7 beats. ASSESSMENT: 1. Chronic diastolic congestive heart failure. 2. Liver disease probably related to chronic passive congestion. PLAN: 1. Agree with intravenous diuretics and spironolactone. 2. We will continue to follow with you. No other recommendations at the present time. Usually, the ascitic fluid is much slower to mobilize than peripheral edema. Will probably need to be in the hospital a few days. 3. Cannot be anticoagulated due to history of intracranial bleeding. Job ID: [id number]
[2019-03-27] MEDS: HumaLOG 300 UNITS/3 ML VIAL SC PRN ×2 (11:45→17:03)
[2019-03-27] MEDS ORDERED: Potassium Chloride 20 MEQ TAB PO SCH (12:00)
--- NOTE | 2019-03-27 13:48 | PRG ---
DATE OF SERVICE: 03/27/2019 Mr. Bell is afebrile. HEART: Regular rhythm. ABDOMEN: . He is quite well. He is better at this point. He is felt to have congestion associated with his diastolic heart failure we will continue baseline with a creatinine of Job ID: [id number]
[2019-03-28] MEDS ORDERED: Levothyroxine Sodium 112 MCG TAB ONE (06:16)
[2019-03-28] MEDS ORDERED: Furosemide 100 MG/10 ML VIAL ONE (06:17)
[2019-03-28] MEDS: Spironolactone 25 MG TAB PO SCH ×3 (09:10→18:45)
[2019-03-28] MEDS: Aspirin Chewable 81 MG TAB PO SCH ×2 (09:10→12:35)
[2019-03-28] MEDS: Rifaximin 550 MG TAB PO SCH ×3 (09:10→21:30)
[2019-03-28] MEDS: Furosemide 40 MG/4 ML VIAL SLOW IVP SCH ×2 (12:34→14:12)
[2019-03-28] MEDS: Levothyroxine Sodium 112 MCG TAB PO SCH (12:35)
[2019-03-28] MEDS: Insulin Glargine 20 UNITS in Pre-Filled Syringe 1 EACH SC SCH ×4 (12:36→21:32)
--- NOTE | 2019-03-28 18:02 | PRG ---
DATE OF SERVICE: 03/28/2019 SUBJECTIVE: Mr. Bell continues to diurese. He is feeling better. His breathing is improved. OBJECTIVE: VITAL SIGNS: Blood pressure 122/72, pulse 74. LUNGS: Clear. CARDIAC: Normal S1. Normal S2. ABDOMEN: Severe ascites. EXTREMITIES: Moderate to severe edema. ASSESSMENT: 1. Diastolic heart failure with fluid mobilizing slowly. 2. Renal insufficiency, stable. Creatinine 1.23 yesterday. PLAN: 1. Give him an extra dose of Lasix tonight. 2. Extra potassium. 3. Check a base met tomorrow. 4. Probably home tomorrow. Long-term prognosis is not favorable in terms of readmission, high probability of readmission. Job ID: [id number]
[2019-03-28 19:37] LABS: Anion Gap 10 mmol/L (10-20); BUN (Urea Nitrogen) 18 mg/dL (8.4-25.7); Calc. Creatinine Clearance 91 mL/min (70-130); Calcium 9.2 mg/dL (7.8-10.44); Carbon Dioxide 35 mmol/L (23-31); Chloride 98 mmol/L (98-107); Estimated GFR-MDRD 63; Glucose 68 mg/dL (83-110); Sodium 139 mmol/L (136-145)
[2019-03-28] MEDS ORDERED: Furosemide 40 MG/4 ML VIAL SLOW IVP SCH (20:00)
[2019-03-28] MEDS ORDERED: Potassium Chloride 20 MEQ TAB PO SCH (20:00)
--- NOTE | 2019-03-28 21:33 | PRG ---
DATE OF SERVICE: SUBJECTIVE: Arabella says he is feeling better. He is anticipated he may go home tomorrow. He has diuresed close to 6 L. I do not believe his weights are inaccurate given that he was -3200 and he gained 3 pounds on the scale. OBJECTIVE: LUNGS: Clear. HEART: Regular rhythm. ABDOMEN: Still distended. EXTREMITIES: He still has stasis changes in lower extremity edema. LABORATORY DATA: Sodium 139, potassium 4, chloride 98, bicarb 35, BUN 18, and creatinine 1.12. ASSESSMENT: 1. Chronic diastolic heart failure. 2. Chronic kidney disease. 3. Obesity. 4. Liver dysfunction, most likely related to chronic hepatic congestion. PLAN: Continue current care. Close outpatient followup. Job ID: [id number]
[2019-03-29 04:57] LABS: Anion Gap 10 mmol/L (10-20); BUN (Urea Nitrogen) 20 mg/dL (8.4-25.7); Calc. Creatinine Clearance 77 mL/min (70-130); Calcium 8.9 mg/dL (7.8-10.44); Carbon Dioxide 34 mmol/L (23-31); Chloride 97 mmol/L (98-107); Estimated GFR-MDRD 53; Glucose 257 mg/dL (83-110); Potassium 4.4 mmol/L (3.5-5.1); Sodium 137 mmol/L (136-145)
--- NOTE | 2019-03-29 06:00 | PDOC.FM ---
- Subjective Subjective: Mr. Dawn is doing well this morning. He states he is ready to go home. He is urinating well without the berry. - Objective Vital Signs & Weight: Vital Signs (12 hours) Temp Pulse Resp BP Pulse Ox 03/29/19 04:00 98.5 F 64 20 143/60 H 99 03/28/19 20:00 98.7 F 70 20 96 Weight Weight 122.016 kg I&O: 03/27/19 03/28/19 03/29/19 06:59 06:59 06:59 Intake Total 8015 535 9511 Output Total 4400 950 2800 Balance -4147 -156 -7412 Result Diagrams: 03/26/19 06:27 03/29/19 04:23 Phys Exam - Physical Examination Constitutional: NAD HEENT: PERRLA, moist MMs, sclera anicteric Neck: supple, full ROM Respiratory: no wheezing, no rales, no rhonchi, clear to auscultation bilateral Much clearer Cardiovascular: no significant murmur, no rub atrial fibrillation, rate controlled. Gastrointestinal: soft, non-tender, positive bowel sounds less distended trace edema Neurological: non-focal, normal sensation, moves all 4 limbs Psychiatric: normal affect, A&O x 3 Skin: normal turgor, cap refill <2 seconds Dx/Plan (1) CHF exacerbation Code(s): I50.9 - HEART FAILURE, UNSPECIFIED Status: Acute (2) Physical deconditioning Code(s): R53.81 - OTHER MALAISE Status: Acute (3) (HFpEF) heart failure with preserved ejection fraction Code(s): I50.30 - UNSPECIFIED DIASTOLIC (CONGESTIVE) HEART FAILURE Status: Chronic (4) Chronic a-fib Code(s): I48.2 - CHRONIC ATRIAL FIBRILLATION * DO NOT USE * Status: Chronic (5) Cirrhosis of liver with ascites Code(s): K74.60 - UNSPECIFIED CIRRHOSIS OF LIVER; R18.8 - OTHER ASCITES Status : Chronic (6) DM2 (diabetes mellitus, type 2) Status: Chronic Qualifiers: Diabetes mellitus watcher automat long goods insulin use: with watcher automat long goods use Diabetes mellitus complication status: with circulatory complication Diabetes mellitus complication detail: with other circulatory complications Qualified Code(s): E11.59 - Type 2 diabetes mellitus with other circulatory complications; Z79.4 - terminal block assembler (current) use of insulin; Z79.4 - longterm (current) use of insulin; Z79.4 - terminal block assembler (current) use of insulin; Z79.4 - terminal block assembler (current) use of insulin (7) HTN (hypertension) Code(s): I10 - ESSENTIAL (PRIMARY) HYPERTENSION Status: Chronic Qualifiers: Hypertension type: essential hypertension Qualified Code(s): I10 - Essential (primary) hypertension - Plan Plan: 83 y/o male admitted for CHF exacerbation following 1 week PRA of increasing SOB and LE edema. CHF Exacerbation CXR: Cardiomegaly with pulmonary congestion and pleural effusions, bilaterally I/O well-diuresed. Total of -6.7L since admission ECHO showed EF of 50-55%. Mild LVH, Atrial fibrillation, Severely dilated LA, sclerosis of aortic valve. Cardiology and Pulmonology consulted, appreciate recommendations Atrial fibrillation, chronic EKG: A-Fib, rate controlled. No longer candidate for anticoagulation. HTN Has been normotensive since admission, on home medications. DM2 Restart home medication regimen: Tresiba 20u BID Mild SSI Accuchecks ACHS Cirrhosis, etiology unclear Notes from prior admission say possibly related to non-alcoholic fatty liver disease. Per patient, currently well-controlled with lactulose for > 3 bowel movements per days LEONARDO Per patient and chart review from Dr. Amaya. He tried CPAP in a previous admission and did not tolerate it, so therefore he never set it up outpatient. H/o subdural hemorrhage (11/2018) Due to risk of bleeding, per cardiology, he can no longer be anticoagulated. Code: Full Diet: Heart Health, w/ Salt Restriction Activity: Ambulate w/ Assist VTE PPx: SCDs Dispo: Stable, likely home within 24 hours. Addendum - Attending - Attending Attestation Date/Time: 03/29/19 5877 I personally evaluated the patient and discussed the management with Dr. Dunn. I agree with the History, Examination, Assessment and Plan documented above with any addition or exceptions noted below.
[2019-03-29] MEDS: Levothyroxine Sodium 112 MCG TAB PO SCH (06:02)
[2019-03-29] MEDS: Furosemide 40 MG/4 ML VIAL SLOW IVP SCH ×2 (06:02→14:02)
[2019-03-29] MEDS: Aspirin Chewable 81 MG TAB PO SCH (08:33)
[2019-03-29] MEDS: Spironolactone 25 MG TAB PO SCH (08:34)
[2019-03-29] MEDS: Rifaximin 550 MG TAB PO SCH (08:34)
[2019-03-29] MEDS: Insulin Glargine 20 UNITS in Pre-Filled Syringe 1 EACH SC SCH (08:34)
[2019-03-29] MEDS: HumaLOG 300 UNITS/3 ML VIAL SC PRN ×2 (08:35→12:34)
--- NOTE | 2019-03-29 09:54 | PRG ---
DATE OF SERVICE: 03/29/2019 SUBJECTIVE: Mr. Bell is doing fine. He had a good diuresis yesterday. Currently, he is sitting on the toilet as he has had an excellent response to the IV Lasix. OBJECTIVE: VITAL SIGNS: Blood pressure 128/64, pulse 70. I and O were negative 1.6 L yesterday. The I's and O's went to about 7 L negative since he came in. ASSESSMENT: 1. Chronic diastolic heart failure, still volume overloaded, but improved. 2. Chronic atrial fibrillation. 3. History of intracranial hemorrhage. PLAN: Okay to me to be released home, to resume same medicines that he was on prior to admission. Job ID: [id number]
[2019-03-29 12:40] VITALS: BP 95/57; TEMP 98.4
--- NOTE | 2019-03-30 06:07 | DIS ---
DATE OF ADMISSION: 03/27/2019 DATE OF DISCHARGE: 03/29/2019 ADMITTING ATTENDING: Mayank Conklin MD DISCHARGE ATTENDING: Mayank Conklin MD CONSULTS: 1. Cardiology, Dr. Herndon. 2. Pulmonology, Dr. Amaya. PROCEDURES: None. DISCHARGE MEDICATIONS: 1. Aspirin 81 mg. 2. Torsemide 40 mg b.i.d. 3. Spironolactone 25 mg b.i.d. 4. Xifaxan 550 mg b.i.d. 5. Levothyroxine 112 mcg daily. 6. Lactulose 30 g t.i.d. as needed for 3 bowel movements per day. 7. Tresiba insulin 20 units b.i.d. 8. NovoLog FlexPen 25 units b.i.d. Discontinued medication: Xarelto. HISTORY OF PRESENT ILLNESS/HOSPITAL COURSE: Mr. Bell is an 83-year-old male with a significant past medical history for congestive heart failure, type 2 diabetes, high blood pressure, cirrhosis, and chronic atrial fibrillation, who presented to the ED for worsening shortness of breath. His shortness of breath had been increasing for the past week and acutely worsened after the . He was noted to have increased swelling of his lower extremities, dyspnea on exertion, and increasing distention of his abdomen. He states that he takes his home diuretic, but they were not keeping up with the fluid that he was putting on. The patient was admitted to the telemetry floor for cardiac monitoring and diuresis with Lasix scheduled q.i.d. initially. Throughout the hospital course, the patient diuresed a total of approximately 7 L of fluid and we consulted Cardiology, Dr. Herndon for recommendations on management of his atrial fibrillation and whether or not to continue anticoagulation. It is unclear whether the patient was taking the Xarelto at home prior to admission. However, after discussing the case with Dr. Herndon, with his history of subdural hematoma. The patient is no longer a candidate for anticoagulation due to his risk of intracranial bleeding and Xarelto was discontinued. Dr. Amaya was consulted for management of pulmonary artery hypertension that has been previously reported in the past. While hospitalized, the patient had a transthoracic echocardiogram, which shows left ventricular size mildly increased and an ejection fraction estimated to be 50% to 55%. The patient was in atrial fibrillation during the study and the PA systolic pressure was estimated to be 47 mmHg. Pertinent lab studies include a normal INR of 1.3, a stable hemoglobin of roughly 12 and poorly controlled diabetes with blood glucose ranges in the 200s for the most part. The patient was discharged home with instructions for close followup. DISPOSITION: Stable. DISCHARGE INSTRUCTIONS: 1. Location: Home. 2. Diet: Heart-healthy, low-sodium. 3. Activity: Ad lilian. 4. Followup: Follow up with primary care physician within 1 week, follow up with Dr. Herndon as needed. Job ID: [id number]
== END 2019-03-29 13:58 | disposition home health service (06) | DRG 292 ==
LOC: ERS 10:58 → UNDOADMOB 12:22 → 2NO 12:22 → INTOOBSV 12:22 → 2NO 03-27 08:41 → OBSVTOIN 03-27 08:41
PROVIDERS: ADMIT Family Medicine; ATTEND Family Medicine
DX: I11.0 Hypertensive heart disease with heart failure (principal); I48.20 Chronic atrial fibrillation, unspecified; R18.8 Other ascites; J96.12 Chronic respiratory failure with hypercapnia; K52.1 Toxic gastroenteritis and colitis; I50.32 Chronic diastolic (congestive) heart failure; E11.9 Type 2 diabetes mellitus without complications; E03.9 Hypothyroidism, unspecified; G47.33 Obstructive sleep apnea (adult) (pediatric); K74.60 Unspecified cirrhosis of liver; I27.20 Pulmonary hypertension, unspecified; N18.9 Chronic kidney disease, unspecified; Z88.0 Allergy status to penicillin; Z79.4 Long term (current) use of insulin; Z79.899 Other long term (current) drug therapy; Z91.14 Patient's other noncompliance with medication regimen; Z68.38 Body mass index [BMI] 38.0-38.9, adult; T47.3X5A Adverse effect of saline and osmotic laxatives, initial encounter; E66.01 Morbid (severe) obesity due to excess calories; R30.0 Dysuria
CPT/HCPCS: 36415; 36416; 71045; 80048; 80053; 82140; 82607; 82746; 82805; 83036; 83605; 83880; 84443; 84484; 85025; 85610; 85730; 93005; 93306; 93798; 96374; J1815; J1940

== ENCOUNTER 2019-04-02 14:04 | Emergency (ER) | payer MEDICARE, BC ==
[2019-04-02 15:12] LABS: #Eosinphils 0.6 thou/uL (0.0-0.7); #Lymphocytes 0.7 thou/uL (1.20-3.40); #Monocytes 0.2 thou/uL (0.11-0.59); #Neutrophils 4.3 thou/uL (1.40-6.50); %Basophils 0.6 % (0.0-1.0); %Eosinophils 10.5 % (0.0-10.0); %Lymphocytes 12.7 % (21.0-51.0); %Monocytes 3.3 % (0.0-10.0); Hemoglobin 12.8 g/dL (14.0-18.0); Mean Platelet Volume 7.4 fL (7.4-10.4); Platelet Count 146 thou/uL (130-400); RBC Distribution Width 14.8 % (11.5-14.5); Red Blood Cell (RBC) Count 3.88 mill/uL (4.70-6.10); White Blood Cell (WBC) Count 5.8 thou/uL (4.8-10.8)
[2019-04-02 15:19] LABS: INR-International Normal Ratio 1.2; Prothrombin Time 15.5 SEC (12.0-14.7)
[2019-04-02 15:34] LABS: ALT (SGPT) 31 U/L (8-55); AST (SGOT) 41 U/L (5-34); Albumin 3.7 g/dL (3.4-4.8); Alkaline Phosphatase 382 U/L (40-110); Anion Gap 13 mmol/L (10-20); BUN (Urea Nitrogen) 19 mg/dL (8.4-25.7); Calc. Creatinine Clearance 0 mL/min (70-130); Calcium 9.3 mg/dL (7.8-10.44); Carbon Dioxide 32 mmol/L (23-31); Chloride 99 mmol/L (98-107); Estimated GFR-MDRD 50; Globulin 3.7 g/dL (2.4-3.5); Glucose 198 mg/dL (83-110); Potassium 4.2 mmol/L (3.5-5.1); Protein, Total 7.4 g/dL (5.8-8.1); Sodium 140 mmol/L (136-145)
--- NOTE | 2019-04-02 15:46 | RAD ---
Exam: Chest one view HISTORY:Dyspnea Comparison: 03/25/2019 FINDINGS: Cardiac silhouette:Cardiomegaly. Aorta: Atherosclerosis of the aortic Pulmonary vessels: Slightly prominent Costophrenic angles: Left-sided pleural effusion. LUNGS: Patchy interstitial and alveolar opacities. Pneumothorax: None Osseous abnormalities: None IMPRESSION: 1. Cardiomegaly. 2. Congestive heart failure. 3. Atherosclerosis.
--- NOTE | 2019-04-02 15:50 | RAD ---
XR Hand Rt 3 View STANDARD: 04/02/2019 2:46 PM CLINICAL INDICATION: Fall with right hand pain COMPARISON: None. FINDINGS: Bones: There is obliquely oriented lucency involving the proximal ring finger metacarpal shaft on th e AP projection only which may reflect a nutrient foramina accentuated by the patient's diffuse osteopenia. No fracture is identified within this is region on the oblique or lateral projections. No definite displaced fracture is evident. Joints: There is scattered osteoarthrosis of the IP joints and wrist carpus. There is chondrocalcinos is within the right wrist joint. Soft Tissue: There are vascular calcifications within the soft tissues. IMPRESSION: No definite displaced fracture demonstrated. Small obliquely oriented lucency involving the radial aspect of the proximal shaft of the ring finger metacarpal is likely reflective of an accentuated nutrient foramina and the patient's osteopenia. No definite displaced fracture is evident. Recommend correlation with patient's clinical exam. Scattered osteoarthrosis the right hand. Chondrocalcinosis of the right wrist joint.
--- NOTE | 2019-04-02 15:58 | CT ---
CT BRAIN WITHOUT CONTRAST: HISTORY: Fall, headache. FINDINGS: Comparison is made with the exam of 01/25/2019. Changes of cortical atrophy and chronic small-vessel ischemic disease are again seen. The ventricula r size is stable and the basilar cisterns patent. The bony calvarium is intact. There is mucosal di sease in the paranasal sinuses. IMPRESSION: No CT evidence of acute intracranial process. POS: TPC
[2019-04-02 16:34] LABS: Bilirubin Negative (Negative); Blood, Urine Negative (Negative); Clarity Clear (Clear); Glucose, Urine (Dipstick) Normal (Negative); Leukocyte Negative Leu/uL (Negative); Nitrite Negative (Negative); Protein, Urine (Dipstick) Negative (Neg-Trace); Urobilinogen Normal mg/dL (Less than 2)
== END 2019-04-02 17:25 | disposition home or self-care (01) ==
LOC: ERS 14:04
DX: S60.511A Abrasion of right hand, initial encounter (principal); E03.9 Hypothyroidism, unspecified; E11.9 Type 2 diabetes mellitus without complications; I48.91 Unspecified atrial fibrillation; I11.0 Hypertensive heart disease with heart failure; I50.9 Heart failure, unspecified; Z79.899 Other long term (current) drug therapy; Z79.82 Long term (current) use of aspirin; W18.30XA Fall on same level, unspecified, initial encounter
CPT/HCPCS: 36415; 70450; 71045; 80053; 81003; 82140; 83880; 84484; 85025; 85610; 85730; 93005

== ENCOUNTER 2019-04-08 10:43 | Inpatient (IN) | payer MEDICARE, BC ==
[2019-04-08 11:23] LABS: Hemoglobin 12.9 g/dL (14.0-18.0); Mean Corpuscular HGB CONC 33.3 g/dL (32.0-36.0); Mean Corpuscular Hemoglobin 34.1 pg (27.0-31.0); Mean Platelet Volume 8.2 fL (7.4-10.4); Platelet Count 118 thou/uL (130-400); RBC Distribution Width 14.8 % (11.5-14.5); Red Blood Cell (RBC) Count 3.79 mill/uL (4.70-6.10); White Blood Cell (WBC) Count 13.3 thou/uL (4.8-10.8)
[2019-04-08 11:39] LABS: #Monocytes 0.7 thou/uL (0.11-0.59); #Neutrophils 11.5 thou/uL (1.40-6.50); %Basophils 0.1 % (0.0-1.0); %Eosinophils 0.1 % (0.0-10.0); %Lymphocytes 7.7 % (21.0-51.0); %Neutrophils 87.1 % (42.0-75.0); Band 2 % (5-11); Lymphocytes 10 % (21-51); MDiff Complete? YES; Monocytes 4 % (0-10); Neutrophil 82 % (42-75); Platelet Morphology Comment Appears Decreased; Polychromasia SLIGHT = 2-3 cells (100X) (0-2/hpf); Reactive Lymphocytes 1 % (0-10)
[2019-04-08 11:40] LABS: ALT (SGPT) 28 U/L (8-55); AST (SGOT) 25 U/L (5-34); Albumin 3.5 g/dL (3.4-4.8); Alkaline Phosphatase 273 U/L (40-110); Anion Gap 14 mmol/L (10-20); BUN (Urea Nitrogen) 39 mg/dL (8.4-25.7); Bilirubin, Total 5.7 mg/dL (0.2-1.2); Calc. Creatinine Clearance 0 mL/min (70-130); Calcium 9.6 mg/dL (7.8-10.44); Carbon Dioxide 36 mmol/L (23-31); Chloride 90 mmol/L (98-107); Estimated GFR-MDRD 43; Globulin 3.5 g/dL (2.4-3.5); Glucose 220 mg/dL (83-110); Lipase 51 U/L (8-78); Sodium 137 mmol/L (136-145)
--- NOTE | 2019-04-08 13:14 | RAD ---
PORTABLE UPRIGHT FRONTAL CHEST: Date: 04/08/19 COMPARISON: 04/02/19. HISTORY: Altered mental status and shortness of breath. FINDINGS: Marked enlargement of the cardiac silhouette again noted. There is increased density in the left lung base, which may represent left pleural fluid and/or left lower lobe consolidation/collapse. Mild pul monary vascular congestion. No pneumothorax. There is an impacted fracture of the humeral neck on the left, as seen on 12/04/18 radiographs of left shoulder. IMPRESSION: Enlarged cardiac silhouette with dense opacity in the left base suggesting a combination of pleural a nd parenchymal opacity. Follow-up PA and lateral imaging of the chest following treatment advised. POS: OFF
[2019-04-08] MEDS ORDERED: cefTRIAXone\\ROCEPHIN 1 GM VIAL ONE (14:04)
[2019-04-08 14:10] LABS: Bacteria/HPF None Seen HPF (None Seen); Bilirubin Negative (Negative); Blood, Urine Negative (Negative); Clarity Clear (Clear); Glucose, Urine (Dipstick) Normal (Negative); Leukocyte Negative Leu/uL (Negative); Nitrite Negative (Negative); Protein, Urine (Dipstick) 30 mg/dL (Neg-Trace); RBC/HPF 0-3 HPF (0-3); Squamous Epithelial 0-3 HPF (0-3); WBC/HPF 0-3 HPF (0-3)
[2019-04-08 14:15] LABS: Lactic Acid 2.6 mmol/L (0.5-2.2)
--- NOTE | 2019-04-08 15:09 | PDOC.FPRHP ---
- History of Present Illness Chief Complaint: SOB, confusion History of Present Illness: Pt is 83 yo M w/ PMHx of HFpEF, cardiac cirrhosis, and other chronic problems noted below brought here by EMS. Pt reports his breathing is labored. He does not wear oxygen at home. Trouble breathing started this morning. He also notes his swelling in legs and abdominal distension has worsened. Per son pt was acting more lethargic and confused this AM, so son called EMS. EMS noted the pt to be satting at 82%. They gave 3 duonebs and solumedrol, which he says mildly helped his SOB. He reports following his fluid restriction and taking his meds except for today because he was here in the ER. He was recently in the ER last Tuesday for a fall. Prior to that he was hospitalized for CHF exacerbation less than 2 weeks ago. ED Course: Vancomycin, ceftriaxone given. - Allergies/Adverse Reactions Allergies Allergy/AdvReac Type Severity Reaction Status Date / Time Penicillins Allergy Hives Verified 09/05/18 02:44 - Home Medications Medication Instructions Recorded Confirmed Type Rifaximin [Xifaxan] 550 mg PO BID 07/02/18 03/25/19 History Spironolactone 25 mg PO BID 07/02/18 03/25/19 History Torsemide 40 mg PO BID 07/02/18 03/25/19 History Insulin Aspart [Novolog Flexpen] 25 unit SQ BID 09/05/18 03/25/19 History Insulin Degludec [Tresiba 20 unit SQ BID 09/05/18 03/25/19 History Flextouch U-200] Lactulose 30 gm PO QID 09/05/18 03/25/19 History Glucagon 1 mg IM PRN PRN vial 12/06/18 03/25/19 Rx Levothyroxine Sodium 112 mcg PO QAM 03/25/19 03/25/19 History Aspirin Chewable [Aspirin Chewable 81 mg PO DAILY tab 03/29/19 Rx Tablet] - History PMHx: HTN, HFpEF, pulmonary HTN, IDDM, Hx of hypothyroidism, Cirrhosis, h/o pulmonary embolism PSHx: cholecystectomy, thyroidectomy, R knee replacement FHx: not assessed Social: Previous alcohol drinker, endorses previous heavy alcohol use, last drink 15-20 years ago Previous smoker, 1ppd x 20 years. No other drugs. Lives w/ and son. has dementia. - Review of Systems General: denies: fever/chills Eyes: denies: vision changes ENT: denies: nasal congestion Respiratory: reports: shortness of breath. denies: cough Cardiovascular: reports: edema. denies: chest pain, orthopnea Gastrointestinal: reports: diarrhea (yes takes lactulose). denies: nausea, vomiting, abdominal pain Genitourinary: denies: dysuria Skin: reports: rashes, jaundice Musculoskeletal: denies: pain Neurological: reports: weakness. denies: syncope, seizure Psychological: denies: anxiety, depression - Vital signs BP: 123/68, MAP: 86, Pulse: 69, Resp: 23, Temp: 98.6 (Oral), Pain: 0, O2 sat: 100 on (2L Oxygen), Time: 04/08/2019 10:54. - Physical Exam Constitutional: NAD, awake, alert and oriented (x2, to person and place, said it was 2014 and season was fall.) HEENT: normocephalic and atraumatic, PERRLA, EOMI -HEENT: scleral icterus and jaundiced Neck: supple, trachea midline, no thyromegaly Heart: other (edema pitting 2+ bilaterally) -Heart: irregular rate, systolic murmur 2/6 over LSB Lungs: no respiratory distress -Lungs: crackles LLL, Abdomen: soft, non-tender -Abdomen: marked distension of abdomen, non TTP, dullness to percussion up to umbilicus when pt lays on side Musculoskeletal: normal structure, normal tone Neurological: no focal deficit, CN II-XII intact, normal sensation, other ( normal strength) Skin: no rash/lesions -Skin: jaundiced -Heme/Lymphatic: multiple areas of bruising all over arms, venous stasis changes over distal LEs bilaterally Psychiatric: normal mood and affect, intact recent and remote memory (AxO x2) FMR H&P: Results - Labs Result Diagrams: 04/08/19 11:00 04/08/19 11:00 Lab results: WBC 13.3 thou/uL (4.8-10.8) H 04/08/19 11:00 Hgb 12.9 g/dL (14.0-18.0) L 04/08/19 11:00 Hct 38.8 % (42.0-52.0) L 04/08/19 11:00 MCV 102.0 fL (78.0-98.0) H 04/08/19 11:00 Plt Count 118 thou/uL (130-400) L 04/08/19 11:00 Neutrophils % 87.1 % (42.0-75.0) H 04/08/19 11:00 Band Neuts % (Manual) 2 % (5-11) L 04/08/19 11:00 Sodium 137 mmol/L (136-145) 04/08/19 11:00 Potassium 3.0 mmol/L (3.5-5.1) L 04/08/19 11:00 Chloride 90 mmol/L (98-107) L 04/08/19 11:00 Carbon Dioxide 36 mmol/L (23-31) H 04/08/19 11:00 BUN 39 mg/dL (8.4-25.7) H 04/08/19 11:00 Creatinine 1.55 mg/dL (0.7-1.3) H 04/08/19 11:00 Glucose 220 mg/dL (83-110) H 04/08/19 11:00 Lactic Acid 2.6 mmol/L (0.5-2.2) H 04/08/19 13:51 Calcium 9.6 mg/dL (7.8-10.44) 04/08/19 11:00 Total Bilirubin 5.7 mg/dL (0.2-1.2) H 04/08/19 11:00 AST 25 U/L (5-34) 04/08/19 11:00 ALT 28 U/L (8-55) 04/08/19 11:00 Alkaline Phosphatase 273 U/L (40-110) H 04/08/19 11:00 Ammonia 36 umol/L (18-72) 04/08/19 13:18 CK-MB (CK-2) 1.0 ng/mL (0-6.6) 04/08/19 11:00 B-Natriuretic Peptide 103.5 pg/mL (0-100) H 04/08/19 11:00 Serum Total Protein 7.0 g/dL (5.8-8.1) 04/08/19 11:00 Albumin 3.5 g/dL (3.4-4.8) 04/08/19 11:00 Lipase 51 U/L (8-78) 04/08/19 11:00 Urine Ketones Negative mg/dL (Negative) 04/08/19 13:40 Urine Blood Negative (Negative) 04/08/19 13:40 Urine Nitrite Negative (Negative) 04/08/19 13:40 Ur Leukocyte Esterase Negative Zoraida/uL (Negative) 04/08/19 13:40 Urine RBC 0-3 HPF (0-3) 04/08/19 13:40 Urine WBC 0-3 HPF (0-3) 04/08/19 13:40 Ur Squamous Epith Cells 0-3 HPF (0-3) 04/08/19 13:40 Urine Bacteria None Seen HPF (None Seen) 04/08/19 13:40 - EKG Interpretation EKG: a-fib rate controlled - Radiology Interpretation Chest x-ray Status: image reviewed by me, report reviewed by me Additional comment: opacity in LLL FMR H&P: A/P - Problem List (1) Acute on chronic diastolic ACC/AHA stage C congestive heart failure Current Visit: No Status: Acute Code(s): I50.33 - ACUTE ON CHRONIC DIASTOLIC (CONGESTIVE) HEART FAILURE (2) CHF exacerbation Current Visit: No Status: Acute Code(s): I50.9 - HEART FAILURE, UNSPECIFIED (3) Hepatic encephalopathy Current Visit: No Status: Acute Code(s): K72.90 - HEPATIC FAILURE, UNSPECIFIED WITHOUT COMA (4) Hypokalemia Current Visit: No Status: Acute Code(s): E87.6 - HYPOKALEMIA (5) Physical deconditioning Current Visit: No Status: Acute Code(s): R53.81 - OTHER MALAISE (6) (HFpEF) heart failure with preserved ejection fraction Current Visit: No Status: Chronic Code(s): I50.30 - UNSPECIFIED DIASTOLIC ( CONGESTIVE) HEART FAILURE (7) Chronic a-fib Current Visit: No Status: Chronic Code(s): I48.2 - CHRONIC ATRIAL FIBRILLATION * DO NOT USE * Comment: rate controlled, on Xarelto (8) Cirrhosis of liver with ascites Current Visit: No Status: Chronic Code(s): K74.60 - UNSPECIFIED CIRRHOSIS OF LIVER; R18.8 - OTHER ASCITES Comment: suspecting from cardiac etiology vs nonalcoholic cirrhosis (9) DM2 (diabetes mellitus, type 2) Current Visit: No Status: Chronic Qualifiers: Diabetes mellitus terminal worker insulin use: with terminal worker use Diabetes mellitus complication status: with circulatory complication Diabetes mellitus complication detail: with other circulatory complications Qualified Code(s): E11.59 - Type 2 diabetes mellitus with other circulatory complications; Z79.4 - termite control technician (current) use of insulin; Z79.4 - termite control technician (current) use of insulin; Z79.4 - care home (current) use of insulin; Z79.4 - care home (current) use of insulin Comment: (10) HTN (hypertension) Current Visit: No Status: Chronic Code(s): I10 - ESSENTIAL (PRIMARY) HYPERTENSION Qualifiers: Hypertension type: essential hypertension Qualified Code(s): I10 - Essential (primary) hypertension (11) History of pulmonary embolism Current Visit: No Status: Chronic Code(s): Z86.711 - PERSONAL HISTORY OF PULMONARY EMBOLISM (12) Hypothyroidism Current Visit: No Status: Chronic Code(s): E03.9 - HYPOTHYROIDISM, UNSPECIFIED (13) Macrocytic anemia Current Visit: No Status: Chronic Code(s): D53.9 - NUTRITIONAL ANEMIA, UNSPECIFIED (14) LEONARDO on CPAP Current Visit: No Status: Chronic Code(s): G47.33 - OBSTRUCTIVE SLEEP APNEA (ADULT) (PEDIATRIC); Z99.89 - DEPENDENCE ON OTHER ENABLING MACHINES AND DEVICES (15) Obesity (BMI 30.0-34.9) Current Visit: No Status: Chronic Code(s): E66.9 - OBESITY, UNSPECIFIED (16) Pulmonary hypertension Current Visit: No Status: Chronic Code(s): I27.20 - PULMONARY HYPERTENSION, UNSPECIFIED - Plan 83 yo M w/ PMHx as documented above admitted for : HFpEF exacerbation SOB with new oxygen requirement, 82% on RA w/ EMS, now stable on 2L NC. - given 1 dose IV lasix 60mg. Will continue lasix 60mg BID tomorrow. - CXR w/ continued cardiomegaly, possible increased opacity LLL, similar to previous CXR. - O2 > 92%, Daily weights, strict I/Os - BNP 105, highest value pt has had here in this hospital - consult Cardiology in AM. Sees Dr. Herndon. Acute hepatic encephalopathy Hypoxia vs hypercapnea vs worsening cirrhosis - one extra dose lactulose given in ED, 60g. - increased home lactulose dose to TID, Titrate to 3 BMs per day. - ammonia 36. - ABG pending Hypokalemia - replaced. Magnesium normal. Cardiac Cirrhosis with worsening ascites - see above. Per patient his specialists must clear him for paracentesis. HENRIQUE - UA w/ hyaline casts 4-6, crystals 2+, urobilinogen 4.0, protein 30 - creatinine elevated from baseline - possible new cardiorenal syndrome, will await cardiology consult prior to giving fluids since pt has ascites and edema, yet appears to have dry MM Leukocytosis - mildly elevated WBC - received vanc, zosyn x1 in ED - no need to continue abx at this time since no fever, no other signs of infection or source. - urine cx, blood cx pending - procalcitonin pending Pulmonary HTN - seen on previous ECHO, sees Dr. Amaya Chronic conditions: Macrocytic anemia, chronic - chronic, stable Hypothyroidism - continue home levothyroxine dose HTN - continue home medications, which are more for diuresis A-fib, chronic - place on telemetry unit LEONARDO - continue CPAP at night. Code: FULL VTE PPx: SCDs only. Decision made on last admission per specialists notes to discontinue anticoagulation. Hx of intracranial bleed. GI PPx: none Dispo: LOS > 48H. Telemetry inpatient Disposition/LOS: Telemetry inpatient. Since pt is not ambulatory, he is not a candidate for the observation floor per nursing. FMR H&P: Upper Level - Pertinent history 83 y/o M PMHx HFpEF, Cirrhosis, HTN, a-fib, DM2, hypothyroidism presents to the ED with his son and because of SOB and confusion. He reports that over the past day he has had increased SOB along with worsened abdominal distension and lower extremity swelling. He reports medication compliance and compliance with his 1200mL fluid restriction. He has not taken any of his morning medications today however as he was confused and they were going to bring him to the hospital. His son reports he woke up confused this AM and didn't know the date. This has happened before whenever his ammonia level was high. He takes lactulose once/day and has one good BM per day usually, but yesterday he did not have a "good" BM. His son reports that usually whenever he begins getting confused they give him lactulose twice a day until it resolves. He saw Dr. Herndon on Tuesday and was started on metolazone twice per week. Pt was brought by EMS and noted to have O2 of 82% and started on O2, given 3 duonebs and solumedrol 125mg. - Pertinent findings Vitals: BP 113/59, HR 69, RR 16, Temp 98.4, O2 sat 98% on 2L O2 PE: Gen - alert, oriented x2, NAD HEENT - scleral icterus, dry mucous membranes CV - RRR, no murmurs Lungs - CTAB but poor air movement Abd - distended, +fluid wave, NTTP Ext - 2+ pitting edema to bilateral knees and some trace edema in bilateral hands Neuro - no focal deficits, no asterixis Labs: WBC 13.3, Hb 12.9, Platelet 118, Na 137, K 3.0, BUN 39, Cr 1.55, GFR 43, Lactic acid 2.4, Trop 0.038, BNP 103, T. bili 5.7, Ammonia 36 CXR: dense pleural and parenchymal opacity in L lung base - Plan Date/Time: 04/08/19 1508 I, Beba Zuñiga MD, PGY-3, have evaluated this patient and agree with findings/ plan as outlined by newsroom intern resident. Pertinent changes/additions are listed here. Acute Hypoxic Respiratory Failure Pt with h/o CHF, pulmonary HTN CXR showed dense pleural and parenchymal opacity in L lung base that is similar to prior -Continue O2 prn -ABG Acute on Chronic HFpEF Exacerbation Pt with worsened ascites and LE swelling in the setting of SOB. Suspect the SOB is also related to the worsened ascites. Recent Echo 03/26/19 showed EF 50-55% and PA systolic pressure of 47. Per Dr. Herndon the patient has chronic diastolic dysfunction. -Admit to telemetry -Will give lasix IV and add metolazone if needed -Strict I/O's -Daily weights -Fluid restrict to 1200mL/day -Consult Dr. Herndon in AM Acute Encephalopathy DDx: hypercapneic vs hypoxic vs hepatic vs uremic -Will check ABG as pt hypoxic to 82% per EMS and was started on O2 -Ammonia only 36, but pt with no BM today and no "good" BM yesterday, so will increase lactulose to TID -Monitor mentation Pulmonary HTN Pt not on chronic O2, per prior pulm notes is multifactorial -Continue O2 prn while hospitalized -ABG -Consult Dr. Amaya if pt does not clinically improve with current treatment plan Cirrhosis Per pulm and cardiology this is suspected 2/2 chronic congestion -Will continue lactulose, rifaximin, spironolactone -Avoid hepatotoxic medications -Fluid restrict and daily weights as above -Check coags in AM HENRIQUE Suspect cardiorenal/hepatorenal. Pt on torsemide and metolazone at home -Monitor closely -Renally dose medications Hypokalemia K 3.0 -Will replete and monitor -Check magnesium Leukocytosis Pt with no other signs of infection other than mild elevation in WBC count. s/p Vanc and Rocephin by ED. Could be 2/2 steroid administration although this was recent. -BCx, UCx pending -Check procal -Trend WBC DM2 Pt on insulin at home. -Check glucose ACHS -CC diet -SSI -Continue home insulin HTN -Continue home meds Hypothyroidism -Continue home synthroid A-fib Pt not a candidate for anticoagulation with h/o intracranial bleeding Dispo: Admit to tele, length of stay likely greater than 2 days VTE ppx: SCD's Code status: Full Addendum - Attending - Attending Attestation Date/Time: 04/08/192038 I personally evaluated the patient and discussed the management with Dr. Lucio and Yogesh I agree with the History, Examination, Assessment and Plan documented above with any addition or exceptions noted below. 83 yo male with multiple medical conditions presents for altered mental status.
[2019-04-08] MEDS ORDERED: Ondansetron PF 4 MG/2 ML Vial IVP PRN (16:05)
[2019-04-08] MEDS ORDERED: Ondansetron ODT 4 MG TAB PO PRN (16:05)
[2019-04-08] MEDS ORDERED: Dextrose 5% in Water 1,000 ML IV PRN (16:05)
[2019-04-08] MEDS ORDERED: Dextrose 50% Abboject 50 ML SYRINGE SLOW IVP PRN (16:05)
[2019-04-08] MEDS ORDERED: Furosemide 100 MG/10 ML VIAL SLOW IVP SCH (17:00)
[2019-04-08] MEDS ORDERED: Potassium Chloride 20 MEQ in Premix Bag 1 BAG IVPB SCH (17:00)
[2019-04-08 18:49] VITALS: BMI 22.2
[2019-04-08] MEDS ORDERED: Non-Formulary Item 1 EACH (Insulin Degludec [Tresiba Flextouch U-200] 20 UNIT) SQ SCH (21:00)
[2019-04-08] MEDS ORDERED: HumaLOG 300 UNITS/3 ML VIAL SC SCH (21:00)
[2019-04-08] MEDS ORDERED: HumaLOG 300 UNITS/3 ML VIAL SC PRN (22:05)
[2019-04-08] MEDS: Insulin Glargine 20 UNITS in Pre-Filled Syringe SC SCH (22:09)
[2019-04-08] MEDS: HumaLOG 300 UNITS/3 ML VIAL SC SCH (22:10)
[2019-04-08] MEDS: Rifaximin 550 MG TAB PO SCH (22:11)
[2019-04-08] MEDS: Spironolactone 25 MG TAB PO SCH (22:11)
[2019-04-08 22:47] LABS: Actual Bicarbonate (HCO3a) 34.5 mEq/L (22-28); Base Excess (BEa) 9.6 mEq/L (-2.0 to +3.0); CO2 Tension 47.4 mmHg (35.0-45.0); Calcium, Ionized 1.13 mmol/L (1.12-1.30); Hemoglobin (Hb) 13.7 g/dL (14.0-18.0); Potassium - ABG Lab 3.03 mmol/L (3.70-5.30); pH, Arterial 7.48 (7.35-7.45)
[2019-04-08 22:48] LABS: Puncture Site RBRACHIAL
[2019-04-09 04:46] LABS: INR-International Normal Ratio 1.4; Prothrombin Time 17.4 SEC (12.0-14.7)
[2019-04-09 05:01] LABS: ALT (SGPT) 25 U/L (8-55); AST (SGOT) 20 U/L (5-34); Albumin 3.4 g/dL (3.4-4.8); Alkaline Phosphatase 254 U/L (40-110); Anion Gap 15 mmol/L (10-20); BUN (Urea Nitrogen) 44 mg/dL (8.4-25.7); Bilirubin, Total 3.1 mg/dL (0.2-1.2); Calc. Creatinine Clearance 35 mL/min (70-130); Calcium 9.6 mg/dL (7.8-10.44); Carbon Dioxide 35 mmol/L (23-31); Chloride 91 mmol/L (98-107); Estimated GFR-MDRD 40; Globulin 3.9 g/dL (2.4-3.5); Glucose 321 mg/dL (83-110); Protein, Total 7.3 g/dL (5.8-8.1); Sodium 138 mmol/L (136-145)
[2019-04-09 05:06] LABS: Potassium 2.9 mmol/L (3.5-5.1)
[2019-04-09 05:27] LABS: Band 6 % (5-11); Hemoglobin 12.2 g/dL (14.0-18.0); Hypochromia SLIGHT = 6-15 cells (100X) (0-5/hpf); Lymphocytes 5 % (21-51); MDiff Complete? YES; Macrocytosis SLIGHT = 6-15 cells (100X) (0-5/hpf); Mean Corpuscular Hemoglobin 33.4 pg (27.0-31.0); Mean Platelet Volume 8.4 fL (7.4-10.4); Monocytes 1 % (0-10); Neutrophil 88 % (42-75); Platelet Count 118 thou/uL (130-400); Platelet Morphology Comment Appears Decreased; RBC Distribution Width 14.6 % (11.5-14.5); Red Blood Cell (RBC) Count 3.66 mill/uL (4.70-6.10); White Blood Cell (WBC) Count 10.5 thou/uL (4.8-10.8)
[2019-04-09] MEDS: Levothyroxine Sodium 112 MCG TAB PO SCH (06:04)
[2019-04-09] MEDS: Furosemide 100 MG/10 ML VIAL SLOW IVP SCH ×2 (06:04→16:40)
[2019-04-09] MEDS: Potassium Chloride 20 MEQ TAB PO SCH ×2 (06:04→16:41)
[2019-04-09] MEDS ORDERED: FLU VACC TS2019-20(65YR UP)/PF 180 MCG/0.5 ML SYRINGE IM ONE (09:00)
[2019-04-09] MEDS ORDERED: Prevnar 13-Val Conj/PF 0.5 ML SYRINGE IM ONE (09:00)
--- NOTE | 2019-04-09 09:33 | PDOC.FM ---
- Subjective Subjective: Pt states his breathing is much improved today. His and son at bedside report that he is improved today. He denies chest pain. - Objective MAR Reviewed: Yes Vital Signs & Weight: Vital Signs (12 hours) Temp Pulse Resp BP Pulse Ox 04/09/19 07:40 97.9 F 67 20 126/63 95 04/09/19 04:36 97.5 F L 77 14 123/72 95 04/08/19 22:10 97.4 F L 74 18 102/55 L 94 L Weight Weight 70.307 kg I&O: 04/08/19 04/09/19 04/10/19 06:59 06:59 06:59 Intake Total 800 Output Total 500 Balance 300 Result Diagrams: 04/09/19 03:57 04/09/19 03:57 Phys Exam - Physical Examination Constitutional: NAD HEENT: moist MMs Neck: no JVD mid and basilar crackles bilaterally regular rate, irregular rhythm, 2/6 systolic murmur Soft abdomen, bowel sounds present, distended, postive fluid wave Musculoskeletal: pulses present, edema present (2+ pitting) Neurological: moves all 4 limbs Psychiatric: A&O x 3 Skin: cap refill <2 seconds Dx/Plan (1) Acute on chronic diastolic ACC/AHA stage C congestive heart failure Code(s): I50.33 - ACUTE ON CHRONIC DIASTOLIC (CONGESTIVE) HEART FAILURE Status : Acute (2) Acute respiratory failure with hypoxia Code(s): J96.01 - ACUTE RESPIRATORY FAILURE WITH HYPOXIA Status: Acute (3) Hepatic encephalopathy Code(s): K72.90 - HEPATIC FAILURE, UNSPECIFIED WITHOUT COMA Status: Acute (4) Hypokalemia Code(s): E87.6 - HYPOKALEMIA Status: Acute (5) Chronic a-fib Code(s): I48.2 - CHRONIC ATRIAL FIBRILLATION * DO NOT USE * Status: Chronic (6) DM2 (diabetes mellitus, type 2) Status: Chronic Qualifiers: Diabetes mellitus alf insulin use: with alf use Diabetes mellitus complication status: with circulatory complication Diabetes mellitus complication detail: with other circulatory complications Qualified Code(s): E11.59 - Type 2 diabetes mellitus with other circulatory complications; Z79.4 - termite renewal inspector (current) use of insulin; Z79.4 - penitentiary (current) use of insulin; Z79.4 - termite renewal inspector (current) use of insulin; Z79.4 - termite renewal inspector (current) use of insulin (7) HTN (hypertension) Code(s): I10 - ESSENTIAL (PRIMARY) HYPERTENSION Status: Chronic Qualifiers: Hypertension type: essential hypertension Qualified Code(s): I10 - Essential (primary) hypertension (8) Pulmonary hypertension Code(s): I27.20 - PULMONARY HYPERTENSION, UNSPECIFIED Status: Chronic - Plan Plan: Acute on chronic HFpEF exacerbation -Currently diuresis with IV lasix, improving, plan to transition to PO -Daily weights, strict I/Os (300ml positive balance today) -BNP 105 -Plan to consult Dr. 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 [] I agree with the History, Examination, Assessment and Plan documented above with any addition or exceptions noted below.
[2019-04-09] MEDS: Aspirin Chewable 81 MG TAB PO SCH (09:37)
[2019-04-09] MEDS: Rifaximin 550 MG TAB PO SCH ×2 (09:38→21:17)
[2019-04-09] MEDS: Spironolactone 25 MG TAB PO SCH (09:38)
[2019-04-09] MEDS: HumaLOG 300 UNITS/3 ML VIAL SC SCH ×2 (09:39→21:18)
[2019-04-09] MEDS: HumaLOG 300 UNITS/3 ML VIAL SC PRN ×3 (09:40→18:05)
[2019-04-09] MEDS: Insulin Glargine 20 UNITS in Pre-Filled Syringe SC SCH (12:21)
[2019-04-09 13:41] LABS: Anion Gap 20 mmol/L (10-20); BUN (Urea Nitrogen) 51 mg/dL (8.4-25.7); Calc. Creatinine Clearance 32 mL/min (70-130); Calcium 9.7 mg/dL (7.8-10.44); Carbon Dioxide 26 mmol/L (23-31); Chloride 95 mmol/L (98-107); Estimated GFR-MDRD 36; Glucose 336 mg/dL (83-110); Sodium 137 mmol/L (136-145)
[2019-04-09 13:48] LABS: Potassium 4.4 mmol/L (3.5-5.1)
[2019-04-09] MEDS ORDERED: Metolazone 2.5 MG TAB PO SCH (15:45)
[2019-04-09] MEDS ORDERED: Insulin Glargine 30 UNITS in Pre-Filled Syringe 1 EACH SC SCH (21:00)
--- NOTE | 2019-04-09 23:32 | CON ---
DATE OF CONSULTATION: REASON FOR CONSULT: Edema, possible ascites, cirrhosis. HISTORY OF PRESENT ILLNESS: Mr. Bell is a pleasant 83-year-old gentleman, well known to me from the office and previous admissions. In the last couple of years, he has developed fluid retention and findings of nodular liver and he has even had some encephalopathy. He did have a history of nonalcoholic fatty liver in the past. It is very likely he has some primary component to his liver disease, but he has also had moderate to severe right ventricular and right atrial dilatation with some aortic sclerosis, severe tricuspid regurgitation indicative of some passive congestion as well. He has been in the hospital several times this year in April, June, and August. More recently, he was in in early March. They went home on 03/29. He was diuresed with Lasix during that admission, 7 L of fluid. Decision was made to stop his Xarelto as he had falls at home with subdural hematoma and he went home on furosemide 40 mg b.i.d. and Aldactone 25 mg b.i.d. as well as his lactulose and levothyroxine. He was readmitted yesterday and he says he did feel comfortable going home. His weight, his son report it was down from 288 to 255 with all the diuresis he had last admission. Presently, he knows where he is. He denies confusion. He has had no melena or hematochezia. He has had no fever or chills. He does have some edema in his legs. PAST MEDICAL HISTORY: 1. Cirrhosis, likely related to passive congestion of liver and nonalcoholic fatty liver disease. 2. Heart failure with significant component of right-sided heart failure on previous echocardiograms. Definitely a component of passive congestion of liver with a right-sided failure in addition to his primary liver disease. 3. Hepatic encephalopathy. 4. Volume overload. 5. Atrial fibrillation. 6. History of prior PEs. 7. Dyslipidemia. 8. Type 2 diabetes, on insulin. 9. Obstructive sleep apnea. 10. Hypothyroidism. PAST SURGICAL HISTORY: Cholecystectomy, thyroidectomy, recent intracranial bleed from fall, knee replacement, thyroidectomy, angioplasties in the past, colonoscopies in the past. MEDICATIONS: At home; 1. Furosemide 40 mg b.i.d. 2. Aldactone 25 mg p.o. daily. 3. For fax me 550 b.i.d. 4. Zaroxolyn 2.5 mg. 5. Levothyroxine 112. 6. Lactulose 60 q.8 hours. 7. Insulin sliding scale. 8. Aspirin 81 mg a day. Medications here; 1. Aspirin 81 mg a day. 2. Lasix 60 IV q.12. 3. Insulin sliding scale. 4. Lactulose 30 t.i.d. 5. Levothyroxine. 6. Metolazone 2.5 mg 2 want given once. 7. Zofran. 8. Xifaxan 550 b.i.d. 9. Aldactone 25 b.i.d. PHYSICAL EXAMINATION: VITAL SIGNS: Blood pressure 143/74, temperature 98. The patient is afebrile. Weight from today shows 155, that is incorrect, it was 269 on 03/29. GENERAL: He is sitting up. He has mild confusion. He does know he is in the hospital, he does know the day, he does recognize his and son. He is without complaints. LUNGS: Clear. Decreased breath sounds at bases. HEART: Has regular rate and rhythm. ABDOMEN: Protuberant. There is shifting dullness and fluid wave. EXTREMITIES: Reveal 3+ edema. He has no asterixis. LABORATORY STUDIES: White count is 10.5; hemoglobin 12.2, it was 12.0 on 03/26; platelet count 118. INR 1.4. BUN 51, creatinine 1.82, sodium 137, potassium 4.4. Bilirubin was 3.1 on 04/09. AST of ALT are 20 and 25, alkaline phosphatase 254. Albumin was 3.4 on 04/09. Albumin was 7.3. ASSESSMENT: 1. Fluid overload. This is probably related to both his cirrhosis and right heart failure. 2. Mild hepatic encephalopathy, likely related to his cirrhosis. 3. Recent fall with subdural hematoma. Appropriately, his Xarelto has been stopped. 4. Chronic obstructive sleep apnea. 5. Chronic atrial fibrillation. RECOMMENDATIONS: I would increase his Aldactone to 100 mg daily to be given in the morning and see what that does with his diuresis and watch his BUN and creatinine closely. I would ultrasound his abdomen and make sure he does not have any signs of liver masses or tumors. We can assess for amount of ascites present as well. A paracentesis would be helpful, but I think he would rapidly reaccumulate fluid. The thao to treatment is going to be a low-salt diet and diuresis, would avoid NSAIDs. Job ID: [id number]
[2019-04-10 04:46] LABS: ALT (SGPT) 26 U/L (8-55); AST (SGOT) 26 U/L (5-34); Albumin 3.4 g/dL (3.4-4.8); Alkaline Phosphatase 227 U/L (40-110); BUN (Urea Nitrogen) 54 mg/dL (8.4-25.7); Calc. Creatinine Clearance 63 mL/min (70-130); Calcium 9.8 mg/dL (7.8-10.44); Estimated GFR-MDRD 45; Protein, Total 7.4 g/dL (5.8-8.1)
[2019-04-10 04:55] LABS: Anion Gap 12 mmol/L (10-20); Carbon Dioxide 39 mmol/L (23-31); Chloride 92 mmol/L (98-107); Potassium 3.6 mmol/L (3.5-5.1); Sodium 139 mmol/L (136-145)
[2019-04-10 04:59] LABS: Glucose 47 mg/dL (83-110)
--- NOTE | 2019-04-10 06:25 | PDOC.FM ---
- Subjective Subjective: Pt has no complaints at this time. He states his breathing is improved some this morning. He denies chest pain, SOB, and nausea. He does report some abdominal tenderness. - Objective MAR Reviewed: Yes Vital Signs & Weight: Vital Signs (12 hours) Temp Pulse Resp BP Pulse Ox 04/10/19 04:00 97.3 F L 69 18 115/59 L 98 04/09/19 21:11 98.2 F 77 20 128/82 95 04/09/19 20:35 95 Weight Weight 116.12 kg I&O: 04/08/19 04/09/19 04/10/19 06:59 06:59 06:59 Intake Total 800 840 Output Total 500 Balance 300 840 Result Diagrams: 04/09/19 03:57 04/10/19 03:50 Phys Exam - Physical Examination Constitutional: NAD HEENT: moist MMs Neck: no JVD Crackles in bases, improved from yesterday Cardiovascular: RRR 2/6 systolic murmur Increased distension, mild tenderness to palpation, fluid wave Musculoskeletal: pulses present, edema present (2+ pitting, unchanged from yesterday) Neurological: moves all 4 limbs Psychiatric: A&O x 3 Skin: cap refill <2 seconds Dx/Plan (1) Acute on chronic diastolic ACC/AHA stage C congestive heart failure Code(s): I50.33 - ACUTE ON CHRONIC DIASTOLIC (CONGESTIVE) HEART FAILURE Status : Acute (2) Acute respiratory failure with hypoxia Code(s): J96.01 - ACUTE RESPIRATORY FAILURE WITH HYPOXIA Status: Acute (3) Hepatic encephalopathy Code(s): K72.90 - HEPATIC FAILURE, UNSPECIFIED WITHOUT COMA Status: Acute (4) Hypokalemia Code(s): E87.6 - HYPOKALEMIA Status: Acute (5) Chronic a-fib Code(s): I48.2 - CHRONIC ATRIAL FIBRILLATION * DO NOT USE * Status: Chronic (6) DM2 (diabetes mellitus, type 2) Status: Chronic Qualifiers: Diabetes mellitus shelter insulin use: with shelter use Diabetes mellitus complication status: with circulatory complication Diabetes mellitus complication detail: with other circulatory complications Qualified Code(s): E11.59 - Type 2 diabetes mellitus with other circulatory complications; Z79.4 - half-way (current) use of insulin; Z79.4 - half-way (current) use of insulin; Z79.4 - half-way (current) use of insulin; Z79.4 - termite exterminator helper (current) use of insulin (7) HTN (hypertension) Code(s): I10 - ESSENTIAL (PRIMARY) HYPERTENSION Status: Chronic Qualifiers: Hypertension type: essential hypertension Qualified Code(s): I10 - Essential (primary) hypertension (8) Pulmonary hypertension Code(s): I27.20 - PULMONARY HYPERTENSION, UNSPECIFIED Status: Chronic - Plan Plan: Acute on chronic HFpEF exacerbation -Currently diuresis with IV lasix and metolazone, improving, plan to transition to PO once clinically improved -Daily weights, strict I/Os -BNP 105 -Cardiology consulted, pending recommendations Acute hepatic encephalopathy vs hypoxia -Currently receiving TID lactulose -Ammonia of 36, near baseline -Stable on 2L O2 Hypokalemia -Replacing, will monitor Cardiac cirrhosis -cardio and GI recommendations HENRIQUE -Likely cardiorenal syndrome, will monitor while diuresis -Some improvement Leukocytosis, resolved One of two blood cultures positive for gram variable rods, one of two positive for MRSE -Currently asymptomatic for bacteremia, likely represents contaminate Pulmonary 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 Hutchinson. I agree with the History, Examination, Assessment and Plan documented above with any addition or exceptions noted below. Sleeping soundly, easily arousable. US results reviewed. Awaiting further study. Diuresing with metolazone. Adjusting insulin to compensate for hypoglycemia.
[2019-04-10] MEDS: Levothyroxine Sodium 112 MCG TAB PO SCH (06:29)
[2019-04-10] MEDS: Furosemide 100 MG/10 ML VIAL SLOW IVP SCH (06:29)
--- NOTE | 2019-04-10 07:00 | CON ---
DATE OF CONSULTATION: REASON FOR CONSULTATION: Congestive heart failure. PRIMARY PHYSICS DEPARTMENT CHAIR: Dr. Ron Herndon. HISTORY OF PRESENT ILLNESS: Mr. Bell is a pleasant 83-year-old gentleman, who recently presented with anasarca. He has complaint of lower extremity edema in addition to abdominal distention. He states he has gained 20 pounds in the last several days. He states he has responded well recently to the Lasix in addition to metolazone. Last echo Doppler dated 03/26/2019, with LVEF 50% to 55%. He is underlying atrial fibrillation in addition to severely enlarged left atrium with gtez-rp-iaxmbaks aortic stenosis and moderate tricuspid regurgitation with hndx-ui-vthaogfl pulmonary hypertension. PAST MEDICAL HISTORY: Diabetes mellitus, nonsustained VT, chronic atrial fibrillation, hypertension, and hyperlipidemia. MEDICATIONS: Include, 1. Torsemide. 2. NovoLog. 3. Tresiba. 4. Spironolactone. 5. Aspirin. 6. Lactulose. 7. Levothyroxine. PAST SURGICAL HISTORY: Thyroidectomy, cholecystectomy, skin cancer removal. ALLERGIES: PENICILLIN. REVIEW OF SYSTEMS: A 10-point review of systems is reviewed and as above, otherwise negative. PHYSICAL EXAMINATION: VITAL SIGNS: Blood pressure 128/82, pulse 77, temperature afebrile. GENERAL: The patient is a pleasant 83-year-old gentleman, who is in no acute distress. The patient appears their stated age. NEUROLOGIC: The patient is alert and oriented x3 with no focal neurologic deficits. HEENT: Sclerae without icterus. Mouth has moist mucous membranes with normal pallor. NECK: No JVD. Carotid upstroke brisk. No bruits bilaterally. LUNGS: Crackles noted bilaterally. BACK: No scoliosis or kyphosis. CARDIAC: with normal S1 and S2. No S3 or S4 noted. No significant rubs, murmurs, thrills, or gallops noted throughout the precordium. PMI is not displaced. There is no parasternal heave. ABDOMEN: Moderately distended with positive ascites. EXTREMITIES: 2+ pitting edema. SKIN: No gross abnormalities. PERTINENT LABORATORY DATA: Hemoglobin 12.2, hematocrit 37.1, and white blood cell count 10.5. Glucose 47, creatinine 1.82 with a GFR of 32. IMPRESSION: 1. Anasarca. 2. Diastolic dysfunction. 3. Atrial fibrillation. 4. Gajy-nr-btqxfjlh pulmonary hypertension. RECOMMENDATIONS: Mr. Bell's symptoms are likely multifactorial. He does have all the above, which may likely all contributing factors. I am unsure about compliance. At this point, we will recommend continuing Lasix. We will add metolazone 2.5 mg 30 minutes prior to Lasix infusion. The patient may need a Lasix drip. He does appear to be markedly fluid overloaded. He states last time this occurred, he required hospitalization for five days. Further recommendation per Dr. Ron Herndon. Job ID: [id number]
--- NOTE | 2019-04-10 07:44 | ULT ---
EXAM: US Abdomen Limited CLINICAL HISTORY: Cirrhosis. Ascites. Evaluate for mass.. COMPARISON: 03/27/2018 FINDINGS: Pancreas: Obscured by bowel gas Liver:There is perihepatic fluid. Increased echogenicity of the hepatic parenchyma may be due to hepa tic steatosis or hepatocellular disease. Limited evaluation for hepatic masses and intrahepatic biliary dilatation. Right hepatic lobe measures 19.2 cm. . Hepatic margin does appear to be lobulated. Gallbladder: Surgically absent Faith's sign:Not applicable Portal Vein: Patent. Appropriate directional flow Bile ducts: Obscured by bowel gas. Right kidney: No hydronephrosis. Right kidney measures 13.1 cm in length. IMPRESSION: 1. Perihepatic fluid. 2. Lobulation of the hepatic parenchyma with increased echotexture. If there is concern for hepatic m ass, consider abdomen MRI or a liver mass protocol CT. Transcribed Date/Time: 04/10/2019 8:14 AM
[2019-04-10] MEDS: Rifaximin 550 MG TAB PO SCH ×2 (08:20→21:12)
[2019-04-10] MEDS: Spironolactone 100 MG TAB PO SCH (08:20)
[2019-04-10] MEDS: Aspirin Chewable 81 MG TAB PO SCH (08:20)
[2019-04-10] MEDS: Insulin Glargine 25 UNITS in Pre-Filled Syringe 1 EACH SC SCH ×2 (09:15→21:13)
[2019-04-10] MEDS ORDERED: acetaZOLAMIDE Sodium 500 MG in Sodium Chloride 0.9% 50 ML IVPB SCH (13:45)
--- NOTE | 2019-04-10 14:16 | PRG ---
DATE OF SERVICE: 04/10/2019 SUBJECTIVE: Mr. Bell is very lethargic today. He awakens, but then he goes right back to sleep. He did have significant urine output last night, although it was not recorded accurately as he had trouble getting to the urinal quickly. OBJECTIVE: VITAL SIGNS: Blood pressure 135/65, pulse 70 and it is irregular. LUNGS: Clear. CARDIAC: Irregular. ABDOMEN: Severe ascites. EXTREMITIES: Lseq-dv-ufwhtnzq edema. PERTINENT LABORATORY DATA: Creatinine is 1.5, GFR is 45, CO2 is very high at 39. Abdomen ultrasound was done, reveals perihepatic fluid. ASSESSMENT AND PLAN: 1. Congestive heart failure, diastolic, acute on chronic. 2. Metabolic alkalosis secondary to diuretics. 3. Renal insufficiency, failure, stage 3. Estimated GFR is 45. 4. Diabetes. 5. Plan to stop Lasix. 6. Add Diamox. 7. Prognosis, guarded. 8. Cirrhosis, thought to be related to chronic passive congestion of his liver. 9. History of hepatic encephalopathy in the past. Some of the mental status changes could be due to worsening hepatic function secondary to worse hepatic congestion. Job ID: [id number]
[2019-04-10] MEDS: HumaLOG 300 UNITS/3 ML VIAL SC PRN (17:13)
--- NOTE | 2019-04-10 18:56 | PRG ---
DATE OF SERVICE: 04/10/2019 SUBJECTIVE: Mr. Bell feels a bit better today. He states his diuretics were changed. OBJECTIVE: VITAL SIGNS: Temperature 97, pulse 78, blood pressure 146/67. Weight . LUNGS: Clear. HEART: Regular rate and rhythm without clicks, rubs, or murmurs. ABDOMEN: Soft and nontender. There is probably shifting dullness and fluid wave. MEDICATIONS: 1. Acetazolamide 500 mg. 2. Insulin sliding scale. 3. Rifaximin. 4. Aldactone 100 mg q.a.m. ASSESSMENT: 1. Cirrhosis. 2. Congestive heart failure, diastolic, acute on chronic. 3. Renal insufficiency. 4. Diabetes. 5. History of hepatic encephalopathy. LABORATORY DATA: Sodium 139, potassium 3.6, BUN and creatinine are 54 and 1.5, . Bilirubin 2, AST and ALT are 26 and 26, alkaline phosphatase 226. Ultrasound, perihepatic fluid, nodular liver. RECOMMENDATIONS: 1. Continue aggressive diuresis, Aldactone 100 mg a day, furosemide or acetazolamide per Cardiology. We need to watch renal function for over diuresis. 2. 2 g sodium diet. 3. Daily weights. Job ID: [id number]
[2019-04-10] MEDS: HumaLOG 300 UNITS/3 ML VIAL SC SCH (21:12)
[2019-04-11 04:27] LABS: BUN (Urea Nitrogen) 48 mg/dL (8.4-25.7); Calc. Creatinine Clearance 72 mL/min (70-130); Calcium 9.7 mg/dL (7.8-10.44); Estimated GFR-MDRD 53; Glucose 143 mg/dL (83-110)
[2019-04-11 04:36] LABS: Anion Gap 13 mmol/L (10-20); Carbon Dioxide 36 mmol/L (23-31); Chloride 91 mmol/L (98-107); Potassium 3.3 mmol/L (3.5-5.1); Sodium 137 mmol/L (136-145)
[2019-04-11] MEDS: Levothyroxine Sodium 112 MCG TAB PO SCH (05:25)
--- NOTE | 2019-04-11 06:12 | PDOC.FM ---
- Subjective Subjective: Pt states he is doing well this morning. He slept well and denies chest pain, SOB, or abdominal pain. He denies fever and chills. - Objective MAR Reviewed: Yes Vital Signs & Weight: Vital Signs (12 hours) Temp Pulse Resp BP Pulse Ox 04/11/19 04:00 97.4 F L 78 20 138/78 98 04/10/19 21:15 97.9 F 88 20 144/78 H 94 L Weight Weight 114.986 kg I&O: 04/09/19 04/10/19 04/11/19 06:59 06:59 06:59 Intake Total 166 088 0764 Output Total 580 480 8578 Balance 300 60 -580 Result Diagrams: 04/09/19 03:57 04/11/19 03:44 Phys Exam - Physical Examination Constitutional: NAD dry mm Neck: no JVD Crackles in bases, slight improvement Cardiovascular: RRR, no significant murmur Distended, less taught, non-tender Musculoskeletal: edema present (2+ pitting edema) Neurological: moves all 4 limbs Psychiatric: A&O x 3 Skin: cap refill <2 seconds Dx/Plan (1) Acute on chronic diastolic ACC/AHA stage C congestive heart failure Code(s): I50.33 - ACUTE ON CHRONIC DIASTOLIC (CONGESTIVE) HEART FAILURE Status : Acute (2) Acute respiratory failure with hypoxia Code(s): J96.01 - ACUTE RESPIRATORY FAILURE WITH HYPOXIA Status: Acute (3) Hepatic encephalopathy Code(s): K72.90 - HEPATIC FAILURE, UNSPECIFIED WITHOUT COMA Status: Acute (4) Hypokalemia Code(s): E87.6 - HYPOKALEMIA Status: Acute (5) Chronic a-fib Code(s): I48.2 - CHRONIC ATRIAL FIBRILLATION * DO NOT USE * Status: Chronic (6) DM2 (diabetes mellitus, type 2) Status: Chronic Qualifiers: Diabetes mellitus care home insulin use: with care home use Diabetes mellitus complication status: with circulatory complication Diabetes mellitus complication detail: with other circulatory complications Qualified Code(s): E11.59 - Type 2 diabetes mellitus with other circulatory complications; Z79.4 - long-term (current) use of insulin; Z79.4 - disability advocate (current) use of insulin; Z79.4 - long-term (current) use of insulin; Z79.4 - long-term (current) use of insulin (7) HTN (hypertension) Code(s): I10 - ESSENTIAL (PRIMARY) HYPERTENSION Status: Chronic Qualifiers: Hypertension type: essential hypertension Qualified Code(s): I10 - Essential (primary) hypertension (8) Pulmonary hypertension Code(s): I27.20 - PULMONARY HYPERTENSION, UNSPECIFIED Status: Chronic - Plan Plan: Acute on chronic HFpEF exacerbation -Currently diuresis diamox, improving -Daily weights, strict I/Os -BNP 105 -Cardiology consulted, pending recommendations Acute hepatic encephalopathy vs hypoxia -Currently receiving TID lactulose -Ammonia of 36, near baseline -Stable on 2L O2 Hypokalemia -Replacing, will monitor Cardiac cirrhosis -cardio and GI recommendations HENRIQUE -Likely cardiorenal syndrome, will monitor while diuresis -Improving Leukocytosis, resolved One of two blood cultures positive for gram variable rods, one of two positive for MRSE -Currently asymptomatic for bacteremia, likely represents contaminate Pulmonary HTN -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 Hutchinson. I agree with the History, Examination, Assessment and Plan documented above with any addition or exceptions noted below. NAD. No dyspnea. BBS CTA. Diuresing with carbonic anhydrase inhibitor. Cirrhosis stable. GI considers US findings to be c/w nodular cirrhotic changes.
[2019-04-11] MEDS ORDERED: Potassium Chloride 20 MEQ TAB PO SCH ×2 (08:00→18:00)
--- NOTE | 2019-04-11 08:44 | PRG ---
DATE OF SERVICE: 04/11/2019 SUBJECTIVE: Mr. Bell is much more awake and alert today. He is not short of breath. OBJECTIVE: VITAL SIGNS: His blood pressure 127/70, pulse 70 and it is irregular. LUNGS: Clear. CARDIAC: Irregularly irregular. ABDOMEN: Still a lot of ascites. EXTREMITIES: Edema. PERTINENT LABORATORY DATA: The CO2 is somewhat lower at 36, it was 39 yesterday, metabolic alkalosis from the diuretics. ASSESSMENT: 1. Congestive heart failure, diastolic, acute on chronic, slowly improving. 2. Renal failure, stable, now stage 2 renal failure instead of stage 3. 3. Hypokalemia. 4. Metabolic alkalosis, improving. PLAN: 1. Continue Diamox. 2. Hold Lasix today. Re-evaluate tomorrow. Job ID: [id number]
[2019-04-11] MEDS: Spironolactone 100 MG TAB PO SCH (09:15)
[2019-04-11] MEDS: Rifaximin 550 MG TAB PO SCH ×2 (09:16→21:06)
[2019-04-11] MEDS: Aspirin Chewable 81 MG TAB PO SCH (09:16)
[2019-04-11] MEDS: Insulin Glargine 25 UNITS in Pre-Filled Syringe 1 EACH SC SCH ×2 (09:17→21:06)
[2019-04-11] MEDS: HumaLOG 300 UNITS/3 ML VIAL SC SCH ×2 (09:30→21:05)
[2019-04-11] MEDS: acetaZOLAMIDE Sodium 500 MG in Sodium Chloride 0.9% 50 ML IVPB SCH (10:27)
[2019-04-11] MEDS: HumaLOG 300 UNITS/3 ML VIAL SC PRN ×2 (11:23→18:06)
[2019-04-11] MEDS ORDERED: Furosemide 40 MG/4 ML VIAL SLOW IVP SCH (16:00)
--- NOTE | 2019-04-11 19:05 | PRG ---
DATE OF SERVICE: 04/11/2019 SUBJECTIVE: Mr. Bell is feeling better. 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 OBJECTIVE: VITAL SIGNS: Temperature is 98, blood pressure 137/62, weight is 253. GENERAL: He is eating. EXTREMITIES: He still has quite a bit of edema. LUNGS: He seems to be breathing easier. NEUROLOGIC: He is more alert. LABORATORY DATA: Sodium 137, potassium 3.3, BUN and creatinine of 48 and 1.3. ASSESSMENT: 1. Right-sided heart failure. 2. Cirrhosis, likely fatty liver, cardiac cirrhosis. 3. Renal failure, stable renal function. PLAN: Continue diuretics. We will follow. Job ID: [id number]
[2019-04-11] MEDS: Insulin Glargine 27 UNITS in Pre-Filled Syringe 1 EACH SC SCH (21:18)
[2019-04-12 04:39] LABS: Anion Gap 9 mmol/L (10-20); BUN (Urea Nitrogen) 38 mg/dL (8.4-25.7); Calc. Creatinine Clearance 81 mL/min (70-130); Calcium 9.8 mg/dL (7.8-10.44); Carbon Dioxide 36 mmol/L (23-31); Chloride 94 mmol/L (98-107); Estimated GFR-MDRD 60; Glucose 139 mg/dL (83-110); Potassium 3.8 mmol/L (3.5-5.1); Sodium 135 mmol/L (136-145)
[2019-04-12] MEDS: Levothyroxine Sodium 112 MCG TAB PO SCH (05:56)
--- NOTE | 2019-04-12 06:34 | PDOC.FM ---
- Subjective Subjective: Pt states he is feeling better today. His family states he is back to baseline in regards to his mentation. No complaints overnight. - Objective MAR Reviewed: Yes Vital Signs & Weight: Vital Signs (12 hours) Temp Pulse Resp BP BP Pulse Ox 04/12/19 03:24 98.4 F 74 15 128/77 94 L 04/11/19 20:00 97.9 F 72 18 143/70 H 98 Weight Weight 113.171 kg I&O: 04/10/19 04/11/19 04/12/19 06:59 06:59 06:59 Intake Total 960 1120 940 Output Total 900 1700 2024 Balance 99 -234 -8556 Result Diagrams: 04/09/19 03:57 04/12/19 03:53 Phys Exam - Physical Examination Constitutional: NAD Neck: no JVD Respiratory: no wheezing Crackles in bases bilaterally Cardiovascular: RRR Systolic murmur Gastrointestinal: soft Distended, mild ttp Musculoskeletal: edema present (improving, 2+ pitting) Neurological: moves all 4 limbs Psychiatric: A&O x 3 Skin: cap refill <2 seconds Dx/Plan (1) Acute on chronic diastolic ACC/AHA stage C congestive heart failure Code(s): I50.33 - ACUTE ON CHRONIC DIASTOLIC (CONGESTIVE) HEART FAILURE Status : Acute (2) Acute respiratory failure with hypoxia Code(s): J96.01 - ACUTE RESPIRATORY FAILURE WITH HYPOXIA Status: Acute (3) Hepatic encephalopathy Code(s): K72.90 - HEPATIC FAILURE, UNSPECIFIED WITHOUT COMA Status: Acute (4) Hypokalemia Code(s): E87.6 - HYPOKALEMIA Status: Acute (5) Chronic a-fib Code(s): I48.2 - CHRONIC ATRIAL FIBRILLATION * DO NOT USE * Status: Chronic (6) DM2 (diabetes mellitus, type 2) Status: Chronic Qualifiers: Diabetes mellitus penitentiary insulin use: with terminal press operator use Diabetes mellitus complication status: with circulatory complication Diabetes mellitus complication detail: with other circulatory complications Qualified Code(s): E11.59 - Type 2 diabetes mellitus with other circulatory complications; Z79.4 - intermediate school teacher (current) use of insulin; Z79.4 - [facility] (current) use of insulin; Z79.4 - intermediate school teacher (current) use of insulin; Z79.4 - [facility] (current) use of insulin (7) HTN (hypertension) Code(s): I10 - ESSENTIAL (PRIMARY) HYPERTENSION Status: Chronic Qualifiers: Hypertension type: essential hypertension Qualified Code(s): I10 - Essential (primary) hypertension (8) Pulmonary hypertension Code(s): I27.20 - PULMONARY HYPERTENSION, UNSPECIFIED Status: Chronic - Plan Plan: Acute on chronic HFpEF exacerbation -Currently diuresis diamox, improving -Daily weights, strict I/Os -BNP 105 -Cardiology consulted, pending recommendations Acute hepatic encephalopathy vs hypoxia -Currently receiving TID lactulose -Ammonia of 36, near baseline -Stable on 2L O2 Hypokalemia -Replacing, will monitor Cardiac cirrhosis -cardio and GI recommendations HENRIQUE -Likely cardiorenal syndrome, will monitor while diuresis -Improving Leukocytosis, resolved One of two blood cultures positive for gram variable rods, one of two positive for MRSE -Currently asymptomatic for bacteremia, likely represents contaminate Pulmonary HTN -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 Hutchinson. I agree with the History, Examination, Assessment and Plan documented above with any addition or exceptions noted below. Pt is improving clinically. Plan to continue diuresis with diamox. Per cardiology, pt may be stable to go home tomorrow. I discussed the option of palliative care and hospice briefly with the pt's . She does not appear receptive at this time.
[2019-04-12] MEDS: Spironolactone 100 MG TAB PO SCH (08:24)
[2019-04-12] MEDS: Aspirin Chewable 81 MG TAB PO SCH (08:24)
[2019-04-12] MEDS: Rifaximin 550 MG TAB PO SCH ×2 (08:24→22:07)
[2019-04-12] MEDS: Insulin Glargine 27 UNITS in Pre-Filled Syringe 1 EACH SC SCH ×2 (08:25→22:06)
[2019-04-12] MEDS: HumaLOG 300 UNITS/3 ML VIAL SC PRN ×3 (08:28→17:59)
[2019-04-12] MEDS: HumaLOG 300 UNITS/3 ML VIAL SC SCH ×2 (08:37→22:07)
[2019-04-12] MEDS ORDERED: Metolazone 5 MG TAB PO SCH (09:00)
--- NOTE | 2019-04-12 09:13 | PRG ---
DATE OF SERVICE: 04/12/2019 SUBJECTIVE: Mr. Bell feels better today. He is much more awake and alert. He says he has been putting out a lot of urine. OBJECTIVE: VITAL SIGNS: His blood pressure is 130/70, pulse is 84 and it is irregular. LUNGS: Clear. CARDIAC: Irregularly irregular. ABDOMEN: Still ascites, but seems to be somewhat decreased. EXTREMITIES: There is only dcly-al-pheskwhl edema now. PERTINENT LABORATORY: Carbon dioxide level is stable at 36, potassium is 3.8. ASSESSMENT: 1. Congestive heart failure, diastolic, acute on chronic, slowly improving. 2. Ascites secondary to heart failure. 3. Cirrhosis, likely secondary to chronic congestion. PLAN: 1. Continue with Diamox in the morning, it is helping with the metabolic alkalosis. When he got diuretics alone, he was becoming very fatigued. I think we were suppressing his respiratory status. 2. Add just 1 dose of Lasix in the afternoon. 3. 1 dose of metolazone today. 4. Spironolactone. 5. Check lab tomorrow, potentially home tomorrow. May add Diamox as an outpatient to help with this metabolic alkalosis. Long-term prognosis is guarded to poor. Hopefully, we can get the patient home as soon as possible to enjoy his quality of life at home. Job ID: [id number]
[2019-04-12] MEDS: acetaZOLAMIDE Sodium 500 MG in Sodium Chloride 0.9% 50 ML IVPB SCH (09:54)
[2019-04-12] MEDS ORDERED: Potassium Chloride 20 MEQ TAB PO SCH (12:00)
--- NOTE | 2019-04-12 15:36 | PRG ---
DATE OF SERVICE: 04/12/2019 SUBJECTIVE: Mr. Bell is doing better and that he is diuresing. He is resting comfortably now in bed. He had a good lunch. OBJECTIVE: GENERAL: He has some temporal wasting. ABDOMEN: He has a protuberant abdomen. He does have a shifting dullness and a little bit of fluid wave. EXTREMITIES: Edema. NEUROLOGIC: He is alert. He is arousable. LABORATORY DATA: BUN and creatinine are stable. ASSESSMENT: 1. Right heart failure. 2. Cirrhosis. 3. Fluid overload with peripheral edema and ascites, responding to diuresis. RECOMMENDATIONS: We will discuss with cardiology to see if they want to get a paracentesis done or just continue with the Aldactone, intermittent Lasix, and Bumex. Job ID: [id number]
[2019-04-12] MEDS ORDERED: Furosemide 40 MG/4 ML VIAL SLOW IVP SCH (16:00)
--- NOTE | 2019-04-13 05:07 | PDOC.FM ---
- Subjective Subjective: Pt states he is doing well this morning. No SOB, chest pain, or abdominal pain. - Objective MAR Reviewed: Yes Vital Signs & Weight: Vital Signs (12 hours) Temp Pulse Resp BP Pulse Ox 04/13/19 03:09 97.9 F 79 20 142/90 H 98 04/12/19 21:50 98.3 F 73 17 118/62 94 L Weight Weight 113.171 kg I&O: 04/11/19 04/12/19 04/13/19 06:59 06:59 06:59 Intake Total 1120 940 480 Output Total 1700 2024 1200 Balance -580 -1085 -720 Result Diagrams: 04/09/19 03:57 04/12/19 03:53 Phys Exam - Physical Examination Constitutional: NAD Dry m basilar crackles, improving Cardiovascular: RRR Systolic murmur Distended, not taught, BS+ Musculoskeletal: edema present (1+ pitting edema, improved) Neurological: moves all 4 limbs Psychiatric: A&O x 3 Skin: cap refill <2 seconds Dx/Plan (1) Acute on chronic diastolic ACC/AHA stage C congestive heart failure Code(s): I50.33 - ACUTE ON CHRONIC DIASTOLIC (CONGESTIVE) HEART FAILURE Status : Acute (2) Acute respiratory failure with hypoxia Code(s): J96.01 - ACUTE RESPIRATORY FAILURE WITH HYPOXIA Status: Acute (3) Hepatic encephalopathy Code(s): K72.90 - HEPATIC FAILURE, UNSPECIFIED WITHOUT COMA Status: Acute (4) Hypokalemia Code(s): E87.6 - HYPOKALEMIA Status: Acute (5) Chronic a-fib Code(s): I48.2 - CHRONIC ATRIAL FIBRILLATION * DO NOT USE * Status: Chronic (6) DM2 (diabetes mellitus, type 2) Status: Chronic Qualifiers: Diabetes mellitus fpc insulin use: with fpc use Diabetes mellitus complication status: with circulatory complication Diabetes mellitus complication detail: with other circulatory complications Qualified Code(s): E11.59 - Type 2 diabetes mellitus with other circulatory complications; Z79.4 - correction (current) use of insulin; Z79.4 - termite control representative (current) use of insulin; Z79.4 - correction (current) use of insulin; Z79.4 - correction (current) use of insulin (7) HTN (hypertension) Code(s): I10 - ESSENTIAL (PRIMARY) HYPERTENSION Status: Chronic Qualifiers: Hypertension type: essential hypertension Qualified Code(s): I10 - Essential (primary) hypertension (8) Pulmonary hypertension Code(s): I27.20 - PULMONARY HYPERTENSION, UNSPECIFIED Status: Chronic - Plan Plan: Acute on chronic HFpEF exacerbation -Currently diuresis diamox, improving -Daily weights, strict I/Os -BNP 105 -Cardiology consulted, pending recommendations Acute hepatic encephalopathy vs hypoxia -Currently receiving TID lactulose -Ammonia of 36, near baseline -Stable on 2L O2 -Pending paracentesis today with cytology and analysis of fluid Hypokalemia -Replacing, will monitor Cardiac cirrhosis -cardio and GI recommendations HENRIQUE -Likely cardiorenal syndrome, will monitor while diuresis -Improving Leukocytosis, resolved One of two blood cultures positive for gram variable rods, one of two positive for MRSE -Currently asymptomatic for bacteremia, likely represents contaminate Pulmonary HTN -Dr. Amaya is national business director IDDM -Will continue adjusting medicine medicine, likely low sugar due to overhead cleaner diet here Macrocytic anemia, chronic -Likely related to liver disease Hypothyroidism -TSH WNL, continue levothyroxine HTN -Continue home medcations Chronic Afib Possible DC today, pt is likely at or near his baseline. Pending final cardiology/GI recommendations.
[2019-04-13 05:39] LABS: INR-International Normal Ratio 1.3; Prothrombin Time 15.8 SEC (12.0-14.7)
[2019-04-13] MEDS ORDERED: Insulin Glargine 30 UNITS in Pre-Filled Syringe 1 EACH SC SCH (05:45)
[2019-04-13 05:57] LABS: Anion Gap 12 mmol/L (10-20); BUN (Urea Nitrogen) 28 mg/dL (8.4-25.7); Calc. Creatinine Clearance 89 mL/min (70-130); Calcium 9.9 mg/dL (7.8-10.44); Carbon Dioxide 32 mmol/L (23-31); Chloride 94 mmol/L (98-107); Estimated GFR-MDRD 69; Glucose 210 mg/dL (83-110); Potassium 3.9 mmol/L (3.5-5.1); Sodium 134 mmol/L (136-145)
[2019-04-13] MEDS: Levothyroxine Sodium 112 MCG TAB PO SCH (06:20)
[2019-04-13 07:45] LABS: #Eosinphils 0.4 thou/uL (0.0-0.7); #Lymphocytes 1.2 thou/uL (1.20-3.40); #Monocytes 0.3 thou/uL (0.11-0.59); #Neutrophils 4.9 thou/uL (1.40-6.50); %Basophils 0.1 % (0.0-1.0); %Eosinophils 5.7 % (0.0-10.0); %Monocytes 4.8 % (0.0-10.0); %Neutrophils 72.3 % (42.0-75.0); Hemoglobin 12.2 g/dL (14.0-18.0); Mean Corpuscular HGB CONC 32.8 g/dL (32.0-36.0); Mean Corpuscular Hemoglobin 33.9 pg (27.0-31.0); Mean Platelet Volume 8.2 fL (7.4-10.4); Platelet Count 136 thou/uL (130-400); RBC Distribution Width 15.1 % (11.5-14.5); Red Blood Cell (RBC) Count 3.59 mill/uL (4.70-6.10); White Blood Cell (WBC) Count 6.8 thou/uL (4.8-10.8)
[2019-04-13] MEDS: HumaLOG 300 UNITS/3 ML VIAL SC SCH ×3 (08:15→20:57)
[2019-04-13] MEDS ORDERED: Sodium Bicarbonate 2.5 MEQ/5 ML VIAL ONE (08:39)
--- NOTE | 2019-04-13 09:20 | ULT ---
ULTRASOUND PARACENTESIS WITH IMAGING: HISTORY: Fluid overload with heart failure and cirrhosis. COMPARISON: Ultrasound abdomen from 04/10/2019. PROCEDURE: The patient was brought to the ultrasound suite. All questions were answered. Informed consent was ob tained. Timeout performed. The patient's right lower quadrant was prepped and draped in a normal sterile fashion. A total of 8 m L of lidocaine was instilled into the superficial and deep soft tissues. After adequate local anesthesia, using ultrasound guidance, a 5 Uzbek catheter was instilled into th e peritoneal space. A total of 3.2 L of straw-colored fluid was removed. The patient tolerated the procedure well without complication. IMPRESSION: Technically successful ultrasound-guided paracentesis with removal of 3.2 L of straw-colored fluid. Transcribed Date/Time: 04/13/2019 10:00 AM
[2019-04-13] MEDS: Spironolactone 100 MG TAB PO SCH (10:08)
[2019-04-13] MEDS: acetaZOLAMIDE Sodium 500 MG in Sodium Chloride 0.9% 50 ML IVPB SCH (10:08)
[2019-04-13] MEDS: Aspirin Chewable 81 MG TAB PO SCH (10:09)
[2019-04-13] MEDS: Rifaximin 550 MG TAB PO SCH ×2 (10:10→20:57)
[2019-04-13 13:03] LABS: RBC Count-Automated (BF) 4473 /cumm; WBC/Nucleated-Auto (BF) 676 uL
--- NOTE | 2019-04-13 13:58 | PRG ---
DATE OF SERVICE: 04/13/2019 SUBJECTIVE: Mr. Bell underwent paracentesis this morning, 3.2 L of fluid was removed clear. He is sleepy now. Family said he was also sleepy this morning. He wakes, but he is very sleepy, but he does arouse. He does not report chest pain or pressure. OBJECTIVE: VITAL SIGNS: His blood pressure 135/63, pulse 60 to 70, irregular. LUNGS: Clear. CARDIAC: Irregularly irregular. EXTREMITIES: Still has [id number] edema. ABDOMEN: Still has ascites, but it is reduced. ASSESSMENT: 1. Chronic atrial fibrillation. This cannot be anticoagulated secondary to intracranial hemorrhage. 2. Cirrhosis, probably related to chronic passive congestion of his liver. 3. Diastolic heart failure. 4. Metabolic alkalosis, improved with Diamox. 5. Sleepiness probably related to his liver status, I believe with hepatic congestion. 6. Diabetes. PLAN: 1. Change to oral Diamox. 2. Change to oral torsemide. 3. He is on spironolactone. 4. Continue to check basic metabolic profile daily. 5. Probably home this weekend. I will be out next week. My partners will be covering. 6. Long-term prognosis is poor. The goal of therapy is to try to keep him out of the hospital as much as possible. Job ID: [id number]
[2019-04-13] MEDS: Torsemide 20 MG TAB PO SCH (14:06)
[2019-04-13 14:18] LABS: BF Segmented Neutrophils 22 %
[2019-04-13 14:19] LABS: Cell Count Non Hematic 17 %; Lymphocytes 61 %
--- NOTE | 2019-04-13 16:45 | PRG ---
DATE OF SERVICE: 04/13/2019 SUBJECTIVE: Mr. Bell is resting. He is awake. He is arousable. He has had lunch today. He states that he feels a little better. OBJECTIVE: VITAL SIGNS: Temperature is 98.4, pulse 69, blood pressure 160/75, weight 251 today, little bit up from yesterday of 248. He had a paracentesis today with 3.2 L of straw-colored fluid removed. ABDOMEN: Soft and nontender. EXTREMITIES: Edema, but it has improved. NEUROLOGIC: He is in no distress. LABORATORY DATA: White count 6.8, hemoglobin 12.2, and platelet count 136. Sodium 134, potassium 3.9, BUN and creatinine 28 and 1. ASSESSMENT: 1. Right heart failure. 2. Cirrhosis, probably a combination of nonalcoholic fatty liver and passive congestion. 3. Paracentesis today. No evidence of spontaneous bacterial peritonitis. Study is otherwise pending. RECOMMENDATIONS: Continue diuresis, 2 g sodium diet. We will follow up on the remainder of the ascites studies. Job ID: [id number]
[2019-04-13 19:19] LABS: BF Color Yellow; Body Fluid Source Paracentesis Fluid; Clarity Hazy (Clear); Tube # EDTA
[2019-04-13] MEDS: AcetaZOLAMIDE 250 MG TAB PO SCH (20:57)
[2019-04-13] MEDS: Insulin Glargine 30 UNITS in Pre-Filled Syringe 1 EACH SC SCH (20:57)
[2019-04-14 04:59] LABS: Anion Gap 10 mmol/L (10-20); BUN (Urea Nitrogen) 22 mg/dL (8.4-25.7); Calc. Creatinine Clearance 95 mL/min (70-130); Calcium 9.4 mg/dL (7.8-10.44); Carbon Dioxide 30 mmol/L (23-31); Chloride 98 mmol/L (98-107); Estimated GFR-MDRD 73; Glucose 118 mg/dL (83-110); Potassium 3.7 mmol/L (3.5-5.1); Sodium 134 mmol/L (136-145)
[2019-04-14] MEDS: Levothyroxine Sodium 112 MCG TAB PO SCH (05:39)
[2019-04-14] MEDS: AcetaZOLAMIDE 250 MG TAB PO SCH ×2 (08:55→21:08)
[2019-04-14] MEDS: Insulin Glargine 30 UNITS in Pre-Filled Syringe 1 EACH SC SCH ×2 (08:55→21:07)
[2019-04-14] MEDS: Spironolactone 100 MG TAB PO SCH (08:55)
[2019-04-14] MEDS: HumaLOG 300 UNITS/3 ML VIAL SC SCH ×2 (08:56→21:08)
[2019-04-14] MEDS: Aspirin Chewable 81 MG TAB PO SCH (08:56)
[2019-04-14] MEDS: Torsemide 20 MG TAB PO SCH ×2 (08:57→15:42)
[2019-04-14] MEDS: Rifaximin 550 MG TAB PO SCH ×2 (08:57→21:08)
--- NOTE | 2019-04-14 13:35 | PDOC.FM ---
- Subjective Subjective: Pt resting in bed this morning. Has no acute complaints. Denies any SOB or chest pain. No concerns from nursing this morning. Pt denies any fever or chills. - Objective MAR Reviewed: Yes Vital Signs & Weight: Vital Signs (12 hours) Temp Pulse Resp BP Pulse Ox 04/14/19 11:48 97.8 F 73 24 H 112/56 L 96 04/14/19 07:16 97.8 F 64 17 127/69 95 04/14/19 03:16 98.4 F 76 16 116/63 91 L Weight Weight 105.8 kg I&O: 04/13/19 04/14/19 04/15/19 06:59 06:59 06:59 Intake Total 840 960 Output Total 1950 1150 Balance -1110 -190 Result Diagrams: 04/13/19 04:27 04/14/19 04:06 Phys Exam - Physical Examination Constitutional: NAD Pt has juandiced skin color HEENT: PERRLA, moist MMs Neck: no nodes, supple, full ROM Respiratory: no wheezing, no rhonchi Mild rales noted bilaterally Cardiovascular: RRR, no significant murmur, no rub Moderately distended abomen. Some fluid wave noted Musculoskeletal: no edema, pulses present Neurological: non-focal, normal sensation, moves all 4 limbs Psychiatric: normal affect, A&O x 3 Skin: no rash, normal turgor, cap refill <2 seconds Dx/Plan (1) Acute on chronic diastolic ACC/AHA stage C congestive heart failure Code(s): I50.33 - ACUTE ON CHRONIC DIASTOLIC (CONGESTIVE) HEART FAILURE Status : Acute (2) Acute respiratory failure with hypoxia Code(s): J96.01 - ACUTE RESPIRATORY FAILURE WITH HYPOXIA Status: Acute (3) CHF exacerbation Code(s): I50.9 - HEART FAILURE, UNSPECIFIED Status: Acute (4) Hepatic encephalopathy Code(s): K72.90 - HEPATIC FAILURE, UNSPECIFIED WITHOUT COMA Status: Acute (5) Physical deconditioning Code(s): R53.81 - OTHER MALAISE Status: Acute (6) Hypothyroidism Code(s): E03.9 - HYPOTHYROIDISM, UNSPECIFIED Status: Chronic (7) LEONARDO on CPAP Code(s): G47.33 - OBSTRUCTIVE SLEEP APNEA (ADULT) (PEDIATRIC); Z99.89 - DEPENDENCE ON OTHER ENABLING MACHINES AND DEVICES Status: Chronic - Plan Plan: Acute on chronic HFpEF exacerbation -Currently diuresis diamox, improving -Daily weights, strict I/Os -BNP 105 -Cardiology consulted, pending recommendations Acute hepatic encephalopathy vs hypoxia, hypoxia resolved -Currently receiving TID lactulose -Ammonia of 36, near baseline -O2 sats stable on RA -Paracentesis performed yesterday. Awaiting cytology and path. -GI consulted- follow recs. Hypokalemia -stable today will monitor and replace as needed Cardiac cirrhosis -cardio and GI recommendations HENRIQUE, Resolved -Likely cardiorenal syndrome, will monitor while diuresis -Resolved at this time. Leukocytosis, resolved One of two blood cultures positive for gram variable rods, one of two positive for MRSE -Currently asymptomatic for bacteremia, likely represents contaminate Pulmonary HTN -Dr. Amaya is costume specialist IDDM -Will continue adjusting medicine medicine -Blood glucose stable. Macrocytic anemia, chronic -Likely related to liver disease Hypothyroidism -TSH WNL, continue levothyroxine HTN -Continue home medcations Chronic Afib Will await Cardio and GI recs and likely discharge patient later today or tommorrow. In meantime continue diuresis. Addendum - Attending - Attending Attestation Date/Time: 04/14/19 4880 I personally evaluated the patient and discussed the management with Dr. Murphy. I agree with the History, Examination, Assessment and Plan documented above with any addition or exceptions noted below. The patient is stable. Continue diuresis. Continue lactulose.
--- NOTE | 2019-04-15 05:50 | PDOC.FM ---
- Subjective Subjective: Pt is very tired this morning. He is A&O x 2, normally A&O x4. - Objective MAR Reviewed: Yes Vital Signs & Weight: Vital Signs (12 hours) Temp Pulse Resp BP BP Pulse Ox 04/15/19 04:37 97.5 F L 71 16 117/57 L 98 04/15/19 00:00 97.8 F 66 16 124/61 98 04/14/19 20:00 97.4 F L 65 16 108/55 L 97 Weight Weight 103.164 kg I&O: 04/13/19 04/14/19 04/15/19 06:59 06:59 06:59 Intake Total 840 960 720 Output Total 1950 1150 500 Balance -1110 -190 220 Result Diagrams: 04/13/19 04:27 04/15/19 08:49 Phys Exam - Physical Examination Constitutional: NAD HEENT: moist MMs, sclera anicteric Neck: no nodes, supple Respiratory: clear to auscultation bilateral Cardiovascular: no significant murmur irregular rhythm, regular rate Gastrointestinal: soft, non-tender, positive bowel sounds Musculoskeletal: no edema, pulses present Neurological: moves all 4 limbs Psychiatric: normal affect Deviation from normal: A&O x2 Skin: no rash Dx/Plan (1) CHF exacerbation Code(s): I50.9 - HEART FAILURE, UNSPECIFIED Status: Acute (2) Hepatic encephalopathy Code(s): K72.90 - HEPATIC FAILURE, UNSPECIFIED WITHOUT COMA Status: Acute (3) Hypokalemia Code(s): E87.6 - HYPOKALEMIA Status: Acute (4) Chronic a-fib Code(s): I48.2 - CHRONIC ATRIAL FIBRILLATION * DO NOT USE * Status: Chronic (5) Cirrhosis of liver with ascites Code(s): K74.60 - UNSPECIFIED CIRRHOSIS OF LIVER; R18.8 - OTHER ASCITES Status : Chronic (6) HTN (hypertension) Code(s): I10 - ESSENTIAL (PRIMARY) HYPERTENSION Status: Chronic Qualifiers: Hypertension type: essential hypertension Qualified Code(s): I10 - Essential (primary) hypertension (7) Hypothyroidism Code(s): E03.9 - HYPOTHYROIDISM, UNSPECIFIED Status: Chronic (8) Macrocytic anemia Code(s): D53.9 - NUTRITIONAL ANEMIA, UNSPECIFIED Status: Chronic - Plan Plan: Pt is 83 yo M w/ PMHx of HFpEF, cardiac cirrhosis, and other chronic problems noted below brought here by EMS. 1. Acute on chronic HFpEF exacerbation * Currently diuresis diamox, improving * Daily weights, strict I/Os * BNP 105 * Cardiology consulted, appreciate recommendations 2. Acute hepatic encephalopathy vs hypoxia, hypoxia resolved * Currently receiving TID lactulose * Ammonia of 36, near baseline * O2 sats stable on RA * Paracentesis performed yesterday. Awaiting cytology and path. * GI consulted- follow recs. 3. Hypokalemia * stable today will monitor and replace as needed 4. Cardiac cirrhosis * cardio and GI recommendations 5. HENRIQUE, Resolved * Likely cardiorenal syndrome, will monitor while diuresis * Resolved at this time. 6. Leukocytosis, resolved 7. One of two blood cultures positive for gram variable rods, one of two positive for MRSE * Currently asymptomatic for bacteremia, likely represents contaminate 8. Pulmonary HTN * Dr. Amaya is coat padder 9. IDDM * Will continue adjusting medicine medicine * Blood glucose stable. 10. Macrocytic anemia, chronic * Likely related to liver disease 11. Hypothyroidism * TSH WNL, continue levothyroxine 12. HTN * Continue home medcations 13. Chronic Afib Dispo: Pt is still altered today, so will continue with lactulose. Will try to reach out to Cardiology today for abnormality on EKG. Addendum - Attending - Attending Attestation Date/Time: 04/15/19 5857 I personally evaluated the patient and discussed the management with Dr. Jurado. I agree with the History, Examination, Assessment and Plan documented above with any addition or exceptions noted below. The patient is confused this morning. Will check ammonia level. Continue to give lactulose and titrate to 3-4 bowel movements. Discussed rhythm with cardiology.
[2019-04-15] MEDS: Levothyroxine Sodium 112 MCG TAB PO SCH (06:50)
[2019-04-15] MEDS: AcetaZOLAMIDE 250 MG TAB PO SCH ×2 (09:05→20:16)
[2019-04-15] MEDS: Spironolactone 100 MG TAB PO SCH (09:05)
[2019-04-15] MEDS: Aspirin Chewable 81 MG TAB PO SCH (09:05)
[2019-04-15] MEDS: Insulin Glargine 30 UNITS in Pre-Filled Syringe 1 EACH SC SCH ×2 (09:05→20:21)
[2019-04-15] MEDS: Rifaximin 550 MG TAB PO SCH ×2 (09:06→20:16)
[2019-04-15] MEDS: Torsemide 20 MG TAB PO SCH ×2 (09:06→14:41)
[2019-04-15] MEDS: HumaLOG 300 UNITS/3 ML VIAL SC SCH ×2 (09:08→20:16)
[2019-04-15 09:18] LABS: Anion Gap 9 mmol/L (10-20); BUN (Urea Nitrogen) 19 mg/dL (8.4-25.7); Calc. Creatinine Clearance 77 mL/min (70-130); Calcium 9.7 mg/dL (7.8-10.44); Carbon Dioxide 34 mmol/L (23-31); Chloride 96 mmol/L (98-107); Estimated GFR-MDRD 64; Glucose 144 mg/dL (83-110); Potassium 4.2 mmol/L (3.5-5.1); Sodium 135 mmol/L (136-145)
[2019-04-15] MEDS: HumaLOG 300 UNITS/3 ML VIAL SC PRN ×2 (12:03→17:09)
--- NOTE | 2019-04-15 13:18 | PRG ---
DATE OF SERVICE: 04/14/2019 SUBJECTIVE: Mr. Bell is a little sleepy today, although when you wake him up, he knows his name. He knows the date. He knows he is at [facility]. He has diuresed well. OBJECTIVE: VITAL SIGNS: Temperature 97, pulse 73, blood pressure 112/56. Weight 233, down from 251 yesterday. ABDOMEN: Still protuberant but less so. EXTREMITIES: Still revealed edema. LABORATORY DATA: Glucose 165, today's sodium 134, potassium 3.7, BUN and creatinine 22 and 9.98. Ascitic fluid white count 670, red blood cells 4473. Culture negative. Segs 22%. Albumin and protein in the ascitic fluid is pending. Triglycerides are negative. ASSESSMENT: 1. Ascites likely related to right heart failure and some component of cirrhosis. 2. Cirrhosis, likely component of right heart failure and cardiac cirrhosis. Albumin has been 3.4, which is high for the degree of cirrhosis and edema he has had. 3. Some issues with encephalopathy in the past. He looks sleepy now. He has not had a bowel movement today. RECOMMENDATIONS: 1. . He is going to talk to the nurse about getting an extra dose of lactulose bowel movements today. 2. For his diuretics, we will defer to Cardiology as they have a regimen metabolic alkalosis. If the patient is not really be taken care of at home by family, it may be reasonable to consider [facility] placement. Job ID: [id number]
--- NOTE | 2019-04-15 14:20 | PRG ---
DATE OF SERVICE: 04/15/2019 SUBJECTIVE: Mr. Bell is lying in bed. He is little bit somnolent, but arousable. He continues on Diamox, aspirin, dextrose, insulin sliding scale, lactulose 30 t.i.d., rifaximin 550 b.i.d., Zofran p.r.n., levothyroxine, furosemide, Aldactone 100 mg daily, Demadex 20 b.i.d. He is without complaints. He is eating a little bit of dinner. His states he has not been out of bed. OBJECTIVE: VITAL SIGNS: Temperature is 98, pulse 60, and blood pressure 117/57. ABDOMEN: Soft. There is shifting dullness. There is a fluid wave. There is no palpable hepatomegaly. EXTREMITIES: Reveal trace edema. LABORATORY DATA: Sodium 135, stable; potassium is 4.2; BUN and creatinine are 19 and 1.10; bicarb is 34; chloride is 96; and glucose 144. Ammonia is 33 today. Bilirubin is 3.1 on the 16th, 2 on the 17th. It has not been rechecked since that time. ASSESSMENT AND PLAN: 1. Fluid overload related to right heart failure and cirrhosis. Weight is down to 227 from 253 on the 18th with diuresis and paracentesis. 2. Mild encephalopathy. His ammonia is 33, lot of his somnolence is related to deconditioning and his chronic medical problems. 3. He is not really getting around at all. I was asked he can go home, I do not think this patient can be able to go home. He cannot get out of bed. Probably some type of [facility] care needs to be arranged. Otherwise, we will continue medical therapy. Job ID: [id number]
[2019-04-15] MEDS ORDERED: Senokot 8.6 MG TAB PO PRN (16:56)
[2019-04-15] MEDS ORDERED: Senokot 8.6 MG TAB PO SCH (17:00)
[2019-04-16] MEDS: Levothyroxine Sodium 112 MCG TAB PO SCH (04:02)
[2019-04-16 05:14] LABS: Anion Gap 11 mmol/L (10-20); BUN (Urea Nitrogen) 17 mg/dL (8.4-25.7); Calc. Creatinine Clearance 83 mL/min (70-130); Calcium 8.9 mg/dL (7.8-10.44); Carbon Dioxide 28 mmol/L (23-31); Chloride 100 mmol/L (98-107); Estimated GFR-MDRD 70; Glucose 171 mg/dL (83-110); Potassium 3.4 mmol/L (3.5-5.1); Sodium 136 mmol/L (136-145)
--- NOTE | 2019-04-16 06:21 | PDOC.FM ---
- Subjective Subjective: Pt denies any complaints at this time. He states he wants to go home before [place]. - Objective MAR Reviewed: Yes Vital Signs & Weight: Vital Signs (12 hours) Temp Pulse Resp BP Pulse Ox 04/16/19 03:15 97.7 F 66 18 115/56 L 98 04/15/19 20:00 100 04/15/19 19:47 98.5 F 63 22 H 126/67 100 Weight Weight 103.147 kg I&O: 04/14/19 04/15/19 04/16/19 06:59 06:59 06:59 Intake Total 960 960 840 Output Total 1150 1000 650 Balance -190 -40 190 Result Diagrams: 04/13/19 04:27 04/16/19 04:27 Phys Exam - Physical Examination Constitutional: NAD HEENT: moist MMs Respiratory: no wheezing Negligible crackles in bases Cardiovascular: RRR 2/6 systolic murmur Gastrointestinal: soft distended, but improved, BS+ Musculoskeletal: pulses present (diminished), edema present (1+ to mid calf) Neurological: moves all 4 limbs Psychiatric: A&O x 3 Skin: cap refill <2 seconds Dx/Plan (1) Acute on chronic diastolic ACC/AHA stage C congestive heart failure Code(s): I50.33 - ACUTE ON CHRONIC DIASTOLIC (CONGESTIVE) HEART FAILURE Status : Acute (2) Acute respiratory failure with hypoxia Code(s): J96.01 - ACUTE RESPIRATORY FAILURE WITH HYPOXIA Status: Acute (3) Hepatic encephalopathy Code(s): K72.90 - HEPATIC FAILURE, UNSPECIFIED WITHOUT COMA Status: Acute (4) Hypokalemia Code(s): E87.6 - HYPOKALEMIA Status: Acute (5) Chronic a-fib Code(s): I48.2 - CHRONIC ATRIAL FIBRILLATION * DO NOT USE * Status: Chronic (6) DM2 (diabetes mellitus, type 2) Status: Chronic Qualifiers: Diabetes mellitus watermelon harvesting supervisor insulin use: with [facility] use Diabetes mellitus complication status: with circulatory complication Diabetes mellitus complication detail: with other circulatory complications Qualified Code(s): E11.59 - Type 2 diabetes mellitus with other circulatory complications; Z79.4 - halfway (current) use of insulin; Z79.4 - supervisor intermediates (current) use of insulin; Z79.4 - halfway (current) use of insulin; Z79.4 - supervisor intermediates (current) use of insulin (7) HTN (hypertension) Code(s): I10 - ESSENTIAL (PRIMARY) HYPERTENSION Status: Chronic Qualifiers: Hypertension type: essential hypertension Qualified Code(s): I10 - Essential (primary) hypertension (8) Pulmonary hypertension Code(s): I27.20 - PULMONARY HYPERTENSION, UNSPECIFIED Status: Chronic - Plan Plan: Acute on chronic HFpEF exacerbation -Currently diuresis diamox, improving -Daily weights, strict I/Os -BNP 105 -Cardiology consulted Acute hepatic encephalopathy vs hypoxia -Currently receiving TID lactulose -Stable on 2L O2 -Pt had an episode of confusion over the weekend. Normal ammonia level Hypokalemia -Replacing, will monitor Cardiac cirrhosis -cardio and GI recommendations HENRIQUE -Likely cardiorenal syndrome, will monitor while diuresis -Improving Leukocytosis, resolved One of two blood cultures positive for gram variable rods, one of two positive for MRSE -Currently asymptomatic for bacteremia, likely represents contaminate Pulmonary HTN -Dr. Amaya is promotions assistant IDDM -Will continue adjusting medicine medicine, likely low sugar due to stove cleaner diet here Macrocytic anemia, chronic -Likely related to liver disease Hypothyroidism -TSH WNL, continue levothyroxine HTN -Continue home medcations Chronic Afib Planning for discharge to [facility] Addendum - Attending - Attending Attestation Date/Time: 04/16/19 1009 I personally evaluated the patient and discussed the management with Dr. Hutchinson. I agree with the History, Examination, Assessment and Plan documented above with any addition or exceptions noted below. Spoke with patient and family at length regarding out of hospital management. Patient walked with PT. Will see if patient qualifies for inpatient rehab vs SNF vs home with HH and PT. I discussed at length palliative care services with the patient and his family. They would like to see if he qualifies for rehab and will continue [facility] goals of care discussion with patients PCP. PCP notified of discussion by resident.
[2019-04-16] MEDS ORDERED: HumaLOG 300 UNITS/3 ML VIAL SC SCH (08:00)
[2019-04-16] MEDS: Polyethylene Glycol 3350 17 GM Packet PO SCH (08:37)
[2019-04-16] MEDS: Spironolactone 100 MG TAB PO SCH (08:37)
[2019-04-16] MEDS: Rifaximin 550 MG TAB PO SCH ×2 (08:38→21:13)
[2019-04-16] MEDS: AcetaZOLAMIDE 250 MG TAB PO SCH ×2 (08:38→21:13)
[2019-04-16] MEDS: Torsemide 20 MG TAB PO SCH ×2 (08:38→14:41)
[2019-04-16] MEDS: Aspirin Chewable 81 MG TAB PO SCH (08:38)
[2019-04-16] MEDS: HumaLOG 300 UNITS/3 ML VIAL SC SCH ×2 (08:39→21:14)
[2019-04-16] MEDS: Insulin Glargine 30 UNITS in Pre-Filled Syringe 1 EACH SC SCH ×2 (08:39→21:13)
--- NOTE | 2019-04-16 09:04 | PRG ---
DATE OF SERVICE: 04/16/2019 SUBJECTIVE: Mr. Bell feels better. I admitted Mr. Bell 1 week ago. He has had some diuresis. His initial weight was 253. Current weight is 227. He has had marked diuresis. His renal function appears to have been stable. He does have significant deconditioning present. OBJECTIVE: VITAL SIGNS: Blood pressure 115/56, pulse 66, and temperature 97.7. LUNGS: Minimal crackles bilaterally. HEART: Irregularly irregular. ABDOMEN: Distended. EXTREMITIES: 2+ pitting edema. PERTINENT LABORATORY DATA: Creatinine 1.02. Hemoglobin 12.2, hematocrit 37. IMPRESSION: 1. Chronic atrial fibrillation. 2. Diastolic dysfunction. 3. Metabolic alkalosis. 4. Diabetes mellitus. RECOMMENDATIONS: Mr. Bell has had significant diuresis over the last week. He also had a paracentesis with 3.2 L of fluid removed. At this point, we will continue conservative treatment. Prognosis appears poor based on his comorbidities. Continue Diamox, aspirin, spironolactone, and torsemide. The patient likely to rehab. He is amenable. Based on his significant diuresis and stabilization, we will follow p.r.n. in the hospital. The patient will have a followup appointment with Dr. Ron Herndon as an outpatient. Job ID: [id number]
[2019-04-16] MEDS: HumaLOG 300 UNITS/3 ML VIAL SC PRN ×2 (12:08→19:29)
--- NOTE | 2019-04-16 12:19 | PRG ---
DATE OF SERVICE: 04/16/2019 SUBJECTIVE: Mr. Bell is resting in bed. He is fairly sleepy. He is breathing better. His son and are at the bedside. OBJECTIVE: VITAL SIGNS: Temperature 98, pulse 74, blood pressure 134/65, weight 227. 4650. GENERAL: The patient is sleepy, but arousable. He is being helped to be fed presently. ABDOMEN: Protuberant with fluid wave. EXTREMITIES: Reveal edema markedly improved from previously. LABORATORY DATA: Sodium 136, potassium 3.4, BUN and creatinine 17 and 1.02. ASSESSMENT: 1. Right heart failure from pulmonary hypertension and diastolic dysfunction. 2. Cirrhosis, likely combination of fatty liver and cardiac cirrhosis. 3. Ascites. Albumin and protein were sent. Cytology was negative. There are no signs of spontaneous bacterial peritonitis. With the patient's serum albumin size, I think a lot of this is passive congestion. It seems he has gotten a good regimen for his fluid management and Dr. Herndon's worked out continue that. 4. Encephalopathy. He is doing well with lactulose and rifaximin. He is pretty sleepy yesterday and ammonia was checked. It was only 33. RECOMMENDATIONS: Continue present management with diuretics, lactulose, low-salt diet. I agree with Cardiology that his prognosis is very poor. I have talked with his family today and him about the fact that we can manage the fluid situation and encephalopathy for a time, but ultimately these will worsen to where they cannot be treated and it will likely result in his demise. I do not think he can go home. The nurses indicated to me yesterday that this patient's at the bedside was confused about where they were at that time. The other water taxi boat mate is the son. I am not sure he will qualify for rehab as he is not getting out of bed very much and I am not sure that he is someone who is going to benefit much from rehab as his clinical course will be progressively worsening over time. If he is not a candidate for rehab, then I would suggest prison with physical therapy and a SNF unit. I do not think the patient can be taken care of at home, because I do not think they will be able to get him out of his car when they got there. brewery worker is working for placement issues at this time. Job ID: [id number]
[2019-04-16] MEDS ORDERED: Potassium Chloride 20 MEQ TAB PO SCH (15:15)
[2019-04-17] MEDS: Levothyroxine Sodium 112 MCG TAB PO SCH (04:33)
--- NOTE | 2019-04-17 06:32 | PDOC.FM ---
- Subjective Subjective: Pt has no complaints this morning. - Objective MAR Reviewed: Yes Vital Signs & Weight: Vital Signs (12 hours) Temp Pulse Resp BP Pulse Ox 04/17/19 04:13 97.7 F 60 12 103/59 L 99 04/16/19 23:48 97.7 F 72 20 142/69 H 97 04/16/19 20:25 98.1 F 65 16 131/58 L 100 Weight Weight 136.123 kg I&O: 04/15/19 04/16/19 04/17/19 06:59 06:59 06:59 Intake Total 170 561 3999 Output Total 1000 650 950 Balance -40 190 600 Result Diagrams: 04/13/19 04:27 04/16/19 04:27 Phys Exam - Physical Examination Constitutional: NAD HEENT: moist MMs Respiratory: no wheezing, clear to auscultation bilateral Cardiovascular: RRR, no significant murmur Gastrointestinal: soft, non-tender, positive bowel sounds distended but not taught Musculoskeletal: pulses present (diminished), edema present (improved) Neurological: moves all 4 limbs Psychiatric: A&O x 3 Skin: cap refill <2 seconds Dx/Plan (1) Acute on chronic diastolic ACC/AHA stage C congestive heart failure Code(s): I50.33 - ACUTE ON CHRONIC DIASTOLIC (CONGESTIVE) HEART FAILURE Status : Acute (2) Acute respiratory failure with hypoxia Code(s): J96.01 - ACUTE RESPIRATORY FAILURE WITH HYPOXIA Status: Acute (3) Hepatic encephalopathy Code(s): K72.90 - HEPATIC FAILURE, UNSPECIFIED WITHOUT COMA Status: Acute (4) Hypokalemia Code(s): E87.6 - HYPOKALEMIA Status: Acute (5) Chronic a-fib Code(s): I48.2 - CHRONIC ATRIAL FIBRILLATION * DO NOT USE * Status: Chronic (6) DM2 (diabetes mellitus, type 2) Status: Chronic Qualifiers: Diabetes mellitus intermission coordinator insulin use: with skilled nursing use Diabetes mellitus complication status: with circulatory complication Diabetes mellitus complication detail: with other circulatory complications Qualified Code(s): E11.59 - Type 2 diabetes mellitus with other circulatory complications; Z79.4 - long-term (current) use of insulin; Z79.4 - long term care social worker (current) use of insulin; Z79.4 - long-term (current) use of insulin; Z79.4 - long-term (current) use of insulin (7) HTN (hypertension) Code(s): I10 - ESSENTIAL (PRIMARY) HYPERTENSION Status: Chronic Qualifiers: Hypertension type: essential hypertension Qualified Code(s): I10 - Essential (primary) hypertension (8) Pulmonary hypertension Code(s): I27.20 - PULMONARY HYPERTENSION, UNSPECIFIED Status: Chronic - Plan Plan: Acute on chronic HFpEF exacerbation -Currently diuresis diamox, improving -Daily weights, strict I/Os -BNP 105 -Cardiology consulted Acute hepatic encephalopathy vs hypoxia -Currently receiving TID lactulose -Stable on 2L O2 -Pt had an episode of confusion over the weekend. 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 Hutchinson. I agree with the History, Examination, Assessment and Plan documented above with any addition or exceptions noted below. Accepted at [facility] rehab. d/c today.
[2019-04-17] MEDS: Aspirin Chewable 81 MG TAB PO SCH (08:56)
[2019-04-17] MEDS: Insulin Glargine 30 UNITS in Pre-Filled Syringe 1 EACH SC SCH (08:56)
[2019-04-17] MEDS: AcetaZOLAMIDE 250 MG TAB PO SCH (08:56)
[2019-04-17] MEDS: Spironolactone 100 MG TAB PO SCH (08:56)
[2019-04-17] MEDS: Polyethylene Glycol 3350 17 GM Packet PO SCH (08:56)
[2019-04-17] MEDS: HumaLOG 300 UNITS/3 ML VIAL SC SCH (08:56)
[2019-04-17] MEDS: Rifaximin 550 MG TAB PO SCH (08:56)
[2019-04-17] MEDS: Torsemide 20 MG TAB PO SCH (08:57)
[2019-04-17] MEDS: HumaLOG 300 UNITS/3 ML VIAL SC PRN (11:54)
[2019-04-17 12:11] VITALS: BP 124/62; TEMP 97.5
--- NOTE | 2019-04-17 15:32 | DIS ---
DATE OF ADMISSION: 04/08/2019 DATE OF DISCHARGE: 04/17/2019 ADMITTING ATTENDING: Dr. Raissa Sandhu. DISCHARGE ATTENDING: Dr. Bakari Wright. RESIDENT: Shay Hutchinson DO CONSULTS: 1. GI, Dr. Alok Palacio. 2. Cardiology, Dr. Ron Herndon. PROCEDURES: 1. Chest x-ray on 04/08/2019 shows enlarged cardiac silhouette with dense opacity in the left base suggestive of combination of pleural and parenchymal opacity. 2. On 04/10/2019, abdominal ultrasound shows perihepatic fluid, lobulation of the hepatic parenchyma with increased echotexture. 3. On 04/13/2019, paracentesis with ultrasound shows a technically successful ultrasound-guided paracentesis with removal of 3.2 L of straw-colored fluid. Cytology shows no malignant cells identified, predominantly benign mesothelial cells, and acute chronic inflammatory cells. PRIMARY DIAGNOSES: Acute hypoxic respiratory failure secondary to acute on chronic heart failure with preserved ejection fraction exacerbation, acute encephalopathy likely secondary to hypoxia, hypokalemia, cardiac cirrhosis with worsening ascites, acute kidney injury likely secondary to cardiorenal syndrome. SECONDARY DIAGNOSES: Pulmonary hypertension, microcytic anemia chronic, hypothyroidism, hypertension, atrial fibrillation, and obstructive sleep apnea. DISCHARGE MEDICATIONS: 1. Spironolactone 100 mg p.o. daily. 2. Diamox 250 mg p.o. b.i.d. 3. Aspirin 81 mg p.o. daily. 4. Insulin aspart 25 units subcu depending on blood sugar. 5. Lactulose 40 g p.o. up to four times per day until the patient has BM. 6. 112 mcg of levothyroxine p.o. daily. 7. Rifaximin 550 mg p.o. b.i.d. 8. Torsemide 20 mg p.o. b.i.d. 9. Benzoate p.o. t.i.d. 10. Tresiba 20 units SC daily. 11. Metolazone 2.5 mg p.o. on Tuesday and Tuesday. DISCONTINUED MEDICATIONS: 1. Prednisone. 2. Augmentin. BRIEF HISTORY OF PRESENT ILLNESS/HOSPITAL COURSE: This is an 83-year-old male with past medical history as above, who presented to the ER with labored breathing, lethargy, and confusion. At home, he was noted to have O2 sats in the low 80s following receiving DuoNeb and Solu-Medrol the patient had improved. The patient received vancomycin and Rocephin in the ER. During his stay, the patient's retail salesperson and take out waiter/waitress were consulted to evaluate the patient. Primary problem was his heart failure and fluid overload, which resolved with diuresis requiring both metolazone, Diamox, and torsemide. The patient improved in his breathing. The patient had the ultrasound-guided paracentesis showed no signs of infection, pending Gram stain at this point and no signs of cancer. During the stay, the patient was informed and educated on palliative hospice care as well as hospice care and declines at this time. The patient sees Dr. Beauchamp and states that though we will discuss this with him when they followup. Of note on admission, the patient's ammonia level was 36. During his stay, ammonia level was checked. During the time of confusion, it was found to be 33 point away from his elevated pneumonia being the primary issue. The patient did have 2 blood cultures that came back positive, one was for coagulase-negative Staphylococcus and the other one was for gram variable rods. I discussed briefly with Dr. Thomas the validity of these blood cultures and he reports no need to start antibiotics at this time. The patient only had one fever in his entire stay and therefore, antibiotics were not continued. Urine culture was negative. DISPOSITION: Stable. DISCHARGE INSTRUCTIONS: [facility]. [facility] 2. Diet: Heart healthy, diabetic carb consistent, fluid restriction of 1200 mL , and low-salt diet. 3. Activity: Per physical therapy. 4. Followup: Follow up with Dr. Beauchamp in 1 to 2 weeks, Dr. Palacio and Dr. Herndon as instructed. Greater than 30 minutes was spent preparing discharge education for discharge and arranging for transfer to [facility] rehab. Job ID: [id number] [facility]
--- NOTE | 2019-04-19 08:27 | PQF ---
BREE LONG IRVIN [id number] [facility]-281 [id number] CLINICAL DOCUMENTATION CLARIFICATION FORM: POST DISCHARGE Addendum to original discharge summary date: ____ Late entry note date: __ DATE:04/19/2019 ATTN: STEVEN DE JESUS Please exercise your independent, professional judgment in responding to the clarification form. Clinical indicators are provided on the bottom of this form for your review Please check appropriate box(s) to clarify if the following diagnosis has been ruled in or ruled out:Pneumonia [ ] Ruled in diagnosis [ ] Continue to treat [ ] Resolved [ ] Ruled out diagnosis [ ] Cannot rule out diagnosis [ ] Other diagnosis [ ] Unable to determine In addition, please specify: Present on Admission (POA): [ ] Yes [ ] No [ ] Unable to determine For continuity of documentation, please document condition throughout progress notes and discharge summary. Thank You. CLINICAL INDICATORS - SIGNS / SYMPTOMS / LABS Pneumonia being the primary issue. The patient did have 2 blood cultures that came back positive one was for coagulase- negative staphylococcus and the other one was for gram variable rods. I discussed briefly with Dr Thomas the validity of these blood cultures and the reports no need to start antibiotics at this time.The patient only had one fever in his entire stay - Documented in Discharge summary on 04/17 by Shay Fairton DO Chest X ray on 04/08/2019 shows-Dense opacity in the left base suggestive of combination of pleural and parenchymal opacity- Documented in Discharge summary on 04/17 by Shay Hutchinson DO RISK FACTORS Acute hypoxic respiratory failure- Documented in Discharge summary on 04/17 by Shay Hutchinson DO TREATMENTS Therefore,antibiotics were not continued- Documented in Discharge summary on by Shay Hutchinson DO Discontinued medications:Augmentin-Documented in Discharge summary on 04/17 by Shay Hutchinson DO [employer] Reports Winform Viewer (This form is maintained as a part of the permanent medical record) 2014 [employer]. All Rights Reserved [email or web address] [not provided] MTDD
--- NOTE | 2019-04-26 08:40 | PQF ---
BREE LONG IRVIN [id number] [facility]-281 [id number] CLINICAL DOCUMENTATION CLARIFICATION FORM: POST DISCHARGE Addendum to original discharge summary date: ____ Late entry note date: __ DATE:04/26/2019 ATTN:JIMMY DE JESUS Please exercise your independent, professional judgment in responding to the clarification form. Clinical indicators are provided on the bottom of this form for your review Please check appropriate box(s): [ ] Fluid overload/ascites is due to cirrhosis [ ] Fluid overload/ascites is due to acute on chronic diastolic heart failure [ ] Fluid overload/ascites is due to cirrhosis and acute on chronic diastolic heart failure [ ] Other diagnosis [ ] Unable to determine In addition, please specify: Present on Admission (POA): [ ] Yes [ ] No [ ] Unable to determine For continuity of documentation, please document condition throughout progress notes and discharge summary. Thank You. CLINICAL INDICATORS - SIGNS / SYMPTOMS / LABS Ascites & LE swelling in the setting of SOB-Family H&P,04/08/19,pg10 by Katlin Lucio MD Suspect the SOB is also related to worsened ascites -Family H&P,04/08/19,pg10 by Katlin Lucio MD Fluid overload -is probably related to both his cirrhosis & right heart failure -consult 04/09/19,pg3 by Jimmy Otero MD Ascites likely related to right heart failure & some component of cirrhosis -PN 04/14/19,pg1 by Alok Palacio MD Cirrhosis likely component of right heart failure & cardiac cirrhosis PNs,pg1by Alok Palacio MD Albumin has been 3.4, which is high for the degree of cirrhosis & edema he has had-PNs04/14/19,pg1 by Alok Palacio MD Paracentesis showed no signs of infection -DS,pg2 by Shay Hutchinson Acute hypoxic respiratory failure secondary to acute on chronic heart failure with preserved ejection fraction exacerbation-Documented in DS on 04/17 by Shay Hutchinson Cardiac cirrhosis with worsening ascites-Documented in DS on 04/17 by Shay Hutchinson RISK FACTORS Acute hypoxic respiratory failure secondary to acute on chronic heart failure with preserved ejection fraction exacerbation-Documented in DS on 04/17 by Shay Hutchinson Cardiac cirrhosis with worsening ascites-Documented in DS on 04/17 by Shay Hutchinson TREATMENTS: Paracentesis with ultrasound on 04/13 -Documented in DS on 04/17 by Shay Hutchinson Spironolactone 100 mg po daily-Documented in DS on 04/17 by Shay Hutchinson Lasix 60mg IV-Documented in Medication snapshot [employer] Speedometer Inspector [employer] Reports Winform Viewer (This form is maintained as a part of the permanent medical record) 2014 [employer]. All Rights Reserved [email or web address] [not provided] MTDD
== END 2019-04-17 13:16 | DRG 291 ==
LOC: ERS 10:43 → 2NO 18:11
PROVIDERS: ADMIT Family Medicine; ATTEND Family Medicine
PROC: 0W9G3ZZ Drainage of Peritoneal Cavity, Percutaneous Approach (ICD-10-PCS; principal; 2019-04-13)
DX: I13.0 Hypertensive heart and chronic kidney disease with heart failure and stage 1 through stage 4 chronic kidney disease, or unspecified chronic kidney disease (principal); I50.33 Acute on chronic diastolic (congestive) heart failure; J96.01 Acute respiratory failure with hypoxia; G93.1 Anoxic brain damage, not elsewhere classified; R18.8 Other ascites; N17.9 Acute kidney failure, unspecified; Z68.41 Body mass index [BMI] 40.0-44.9, adult; I48.20 Chronic atrial fibrillation, unspecified; K76.1 Chronic passive congestion of liver; N18.3 Chronic kidney disease, stage 3 (moderate); E87.6 Hypokalemia; I27.20 Pulmonary hypertension, unspecified; D50.9 Iron deficiency anemia, unspecified; E03.9 Hypothyroidism, unspecified; I48.91 Unspecified atrial fibrillation; G47.33 Obstructive sleep apnea (adult) (pediatric); B95.8 Unspecified staphylococcus as the cause of diseases classified elsewhere; Z88.0 Allergy status to penicillin; Z90.49 Acquired absence of other specified parts of digestive tract; Z79.4 Long term (current) use of insulin; Z86.711 Personal history of pulmonary embolism; E66.9 Obesity, unspecified; E78.5 Hyperlipidemia, unspecified; E11.22 Type 2 diabetes mellitus with diabetic chronic kidney disease
CPT/HCPCS: 36415; 36416; 49083; 51701; 71045; 76705; 80048; 80053; 81003; 81015; 82140; 82553; 82805; 83605; 83690; 83735; 83880; 84145; 84443; 84478; 84484; 85025; 85060; 85610; 87040; 87086; 87149; 88112; 88305; 89051; 93005; 93798; 96365; 96367; J0696; J1120; J1815; J1940; J3370; J3480

== ENCOUNTER 2019-05-09 10:03 | Observation (INO) | payer MEDICARE, BC ==
--- NOTE | 2019-05-09 10:42 | CT ---
Head CT without contrast 05/09/2019: COMPARISON: 04/02/2019 HISTORY: Altered mental status TECHNIQUE: Axial CT imaging at 5 mm intervals from vertex through skull base without contrast FINDINGS: The imaged paranasal sinuses and mastoid air cells demonstrate stable partial opacification of the sphenoid sinus on the right. There is atherosclerotic calcification of the cavernous carotid arteries. There is no displaced calvarial fracture. No intracranial hemorrhage, midline shift , or mass effect. Distal vertebral artery atherosclerotic calcification is noted bilaterally. Periventricular and deep white matter hypodensity again noted, evidence of stable small vessel diseas e, left greater than right. IMPRESSION: Stable head CT. Chronic findings as detailed above-no intracranial hemorrhage.
[2019-05-09 10:50] LABS: #Eosinphils 1.3 thou/uL (0.0-0.7); #Lymphocytes 1.6 thou/uL (1.20-3.40); #Monocytes 0.4 thou/uL (0.11-0.59); #Neutrophils 4.3 thou/uL (1.40-6.50); %Basophils 0.6 % (0.0-1.0); %Eosinophils 17.1 % (0.0-10.0); %Monocytes 5.6 % (0.0-10.0); %Neutrophils 55.7 % (42.0-75.0); Hemoglobin 14.4 g/dL (14.0-18.0); Mean Corpuscular HGB CONC 34.5 g/dL (32.0-36.0); Mean Corpuscular Hemoglobin 33.2 pg (27.0-31.0); Mean Corpuscular Volume 96.3 fL (78.0-98.0); Mean Platelet Volume 7.7 fL (7.4-10.4); Platelet Count 181 thou/uL (130-400); RBC Distribution Width 14.9 % (11.5-14.5); Red Blood Cell (RBC) Count 4.33 mill/uL (4.70-6.10); White Blood Cell (WBC) Count 7.8 thou/uL (4.8-10.8)
--- NOTE | 2019-05-09 10:59 | RAD ---
Portable frontal chest radiograph: 05/09/2019 COMPARISON: 04/08/2019 HISTORY: Altered mental status FINDINGS: Stable increased linear interstitial density. Stable prominence of the cardiac silhouette. There is an old impacted fracture of the proximal left humerus. No pneumothorax, pleural fluid, focal consolidation, or alveolar edema. IMPRESSION: Chronic findings as above. No acute findings.
[2019-05-09 11:22] LABS: Bilirubin Negative (Negative); Blood, Urine Negative (Negative); Clarity Clear (Clear); Glucose, Urine (Dipstick) Normal (Negative); Leukocyte Negative Leu/uL (Negative); Nitrite Negative (Negative); Protein, Urine (Dipstick) 10 mg/dL (Neg-Trace)
[2019-05-09 11:33] LABS: Calcium 9.7 mg/dL (7.8-10.44); Chloride 93 mmol/L (98-107); Sodium 135 mmol/L (136-145)
[2019-05-09 11:34] LABS: Globulin 3.9 g/dL (2.4-3.5); Glucose 228 mg/dL (83-110); Protein, Total 7.9 g/dL (5.8-8.1)
[2019-05-09 11:35] LABS: Anion Gap 16 mmol/L (10-20); Carbon Dioxide 29 mmol/L (23-31)
[2019-05-09 11:36] LABS: Bilirubin, Total 1.8 mg/dL (0.2-1.2)
[2019-05-09 11:37] LABS: Alkaline Phosphatase 306 U/L (40-110); Calc. Creatinine Clearance 0 mL/min (70-130); Estimated GFR-MDRD 44
[2019-05-09 11:38] LABS: BUN (Urea Nitrogen) 43 mg/dL (8.4-25.7)
[2019-05-09 11:39] LABS: AST (SGOT) 43 U/L (5-34)
[2019-05-09 11:40] LABS: ALT (SGPT) 69 U/L (8-55); CK (CPK) 23 U/L (30-200); Lipase 42 U/L (8-78)
[2019-05-09] MEDS ORDERED: Sodium Chloride 0.9% 1,000 ML IV SCH (12:30)
--- NOTE | 2019-05-09 13:21 | PDOC.FPRHP ---
- History of Present Illness Chief Complaint: Confusion History of Present Illness: 83 yo male with known hepatic cirrhosis secondary to CHF presents with his and son due to AMS. His son reports that he has been confused for the last day and a half. He notes that he knows his dad will get like this due to not having bowel movements. He normally takes Lactulose up to 4 times per day per his son and has not missed a dose. He reports his dad's last BM was at least 2 days ago. He is normally A&Ox4 with no difficulties and just recently was discharged from rehab. His family denies recent illness, abdominal distention, lower extremity edema, fevers, or n/v/d. Today, he is A&Ox1 and not in any pain. No other complaints. ED Course: 40g Lactulose - Allergies/Adverse Reactions Allergies Allergy/AdvReac Type Severity Reaction Status Date / Time Penicillins Allergy Hives Verified 04/08/19 21:08 - Home Medications Medication Instructions Recorded Confirmed Type Rifaximin [Xifaxan] 550 mg PO BID 07/02/18 05/09/19 History Insulin Aspart [Novolog Flexpen] 25 unit SQ ASDIR 09/05/18 05/09/19 History Insulin Degludec [Tresiba 20 unit SQ ASDIR 09/05/18 05/09/19 History Flextouch U-200] Lactulose 60 ml PO ASDIR 09/05/18 05/09/19 History Levothyroxine Sodium 112 mcg PO QAM 03/25/19 05/09/19 History Aspirin Chewable [Aspirin Chewable 81 mg PO DAILY tab 03/29/19 05/09/19 Rx Tablet] Metolazone [Zaroxolyn] 2.5 mg PO ASDIR 04/08/19 05/09/19 History Benzonatate 200 mg PO TID PRN 04/13/19 05/09/19 History AcetaZOLAMIDE [Diamox] 250 mg PO BID #0 tab 04/16/19 05/09/19 Rx Spironolactone [Aldactone] 100 mg PO QAM-WM tab 04/16/19 05/09/19 Rx Torsemide [Demadex] 20 mg PO BID@0900,1400 tab 04/16/19 05/09/19 Rx - History PMHx: HTN, HFpEF, pulmonary HTN, DM2, Hx of hypothyroidism, Cirrhosis, h/o pulmonary embolism PSHx: cholecystectomy, thyroidectomy, R knee replacement FHx: Non-contributory Social: Previous alcohol drinker, endorses previous heavy alcohol use, last drink 15-20 years ago Previous smoker, 1ppd x 20 years. No other drugs. Lives w/ and son. - Review of Systems ROS unobtainable: due to mental status General: denies: fever/chills Cardiovascular: denies: chest pain, edema Musculoskeletal: denies: pain - Vital signs BP: 142/84 HR: 68 RR: 15 Tmax: 97.9 Pox: 100% on RoomAir Wt: 97.8 kg - Physical Exam Constitutional: NAD -Constitutional: A&Ox1 HEENT: normocephalic and atraumatic, PERRLA Neck: supple, trachea midline Heart: RRR -Heart: 3/6 systolic murmur Lungs: CTAB, no respiratory distress, good air movement Abdomen: soft, non-tender, bowel sounds present, no masses/distention Musculoskeletal: normal structure, normal tone, ROM grossly normal Neurological: no focal deficit, CN II-XII intact -Skin: Venous stasis dermatitis changes bilaterally Heme/Lymphatic: no unusual bruising or bleeding FMR H&P: Results - Labs Result Diagrams: 05/09/19 10:27 05/10/19 03:37 Lab results: WBC 7.8 thou/uL (4.8-10.8) 05/09/19 10:27 Hgb 14.4 g/dL (14.0-18.0) 05/09/19 10:27 Hct 41.7 % (42.0-52.0) L 05/09/19 10:27 MCV 96.3 fL (78.0-98.0) 05/09/19 10:27 Plt Count 181 thou/uL (130-400) 05/09/19 10:27 Neutrophils % 55.7 % (42.0-75.0) 05/09/19 10:27 Sodium 135 mmol/L (136-145) L 05/09/19 10:27 Potassium 3.0 mmol/L (3.5-5.1) L 05/09/19 10:27 Chloride 93 mmol/L (98-107) L 05/09/19 10:27 Carbon Dioxide 29 mmol/L (23-31) 05/09/19 10:27 BUN 43 mg/dL (8.4-25.7) H 05/09/19 10:27 Creatinine 1.53 mg/dL (0.7-1.3) H 05/09/19 10:27 Glucose 228 mg/dL (83-110) H 05/09/19 10:27 Calcium 9.7 mg/dL (7.8-10.44) 05/09/19 10:27 Total Bilirubin 1.8 mg/dL (0.2-1.2) H 05/09/19 10:27 AST 43 U/L (5-34) H 05/09/19 10:27 ALT 69 U/L (8-55) H 05/09/19 10:27 Alkaline Phosphatase 306 U/L (40-110) H 05/09/19 10:27 Ammonia 109 umol/L (18-72) H 05/09/19 10:27 Creatine Kinase 23 U/L (30-200) L 05/09/19 10:27 Serum Total Protein 7.9 g/dL (5.8-8.1) 05/09/19 10:27 Albumin 4.0 g/dL (3.4-4.8) 05/09/19 10:27 Lipase 42 U/L (8-78) 05/09/19 10:27 Urine Ketones Negative mg/dL (Negative) 05/09/19 11:06 Urine Blood Negative (Negative) 05/09/19 11:06 Urine Nitrite Negative (Negative) 05/09/19 11:06 Ur Leukocyte Esterase Negative Zoraida/uL (Negative) 05/09/19 11:06 FMR H&P: A/P - Problem List (1) Hepatic encephalopathy Current Visit: No Status: Acute Code(s): K72.90 - HEPATIC FAILURE, UNSPECIFIED WITHOUT COMA (2) Liver cirrhosis Current Visit: Yes Status: Acute Code(s): K74.60 - UNSPECIFIED CIRRHOSIS OF LIVER (3) (HFpEF) heart failure with preserved ejection fraction Current Visit: No Status: Chronic Code(s): I50.30 - UNSPECIFIED DIASTOLIC ( CONGESTIVE) HEART FAILURE (4) DM2 (diabetes mellitus, type 2) Current Visit: No Status: Chronic Qualifiers: Diabetes mellitus long term care social worker insulin use: with group home use Diabetes mellitus complication status: with circulatory complication Diabetes mellitus complication detail: with other circulatory complications Qualified Code(s): E11.59 - Type 2 diabetes mellitus with other circulatory complications; Z79.4 - intermediate accountant (current) use of insulin; Z79.4 - longterm (current) use of insulin; Z79.4 - intermediate accountant (current) use of insulin; Z79.4 - intermediate accountant (current) use of insulin Comment: (5) HTN (hypertension) Current Visit: No Status: Chronic Code(s): I10 - ESSENTIAL (PRIMARY) HYPERTENSION Qualifiers: Hypertension type: essential hypertension Qualified Code(s): I10 - Essential (primary) hypertension - Plan Hepatic Encephalopathy - Rifaximin - Lactulose - Titrate medication to improved mentation and stool output. Liver Cirrhosis - Continue current regimen DM2 - Accuchecks - Continue home regimen - Consistent carb diet HTN - Continue home meds All other chronic conditions reviewed and medications to be restarted as appropriate. PCP: Dr. Beauchamp CODE STATUS: FULL CODE Disposition: Stable, will admit to medical for further evaluation and treatment. Addendum - Attending - Attending Attestation Date/Time: 05/10/19 4706 I personally evaluated the patient and discussed the management with Dr. Law on 05/10/2019 I agree with the History, Examination, Assessment and Plan documented above with any addition or exceptions noted below - 83 yo male with h/o DM, HFpEF, hypothyroidism and hepatic cirrhosis secondary to CHF presents with his and son due to AMS. His son reports that he has been confused for the last day and a half. He notes that he knows his dad will get like this due to not having bowel movements. He normally takes Lactulose up to 4 times per day per his son and has not missed a dose. He reports his dad's last BM was at least 2 days ago. He is normally A&Ox4 with no difficulties and just recently was discharged from rehab. His family denies recent illness, abdominal distention, lower extremity edema, fevers, or n/v/d. Today, he is A&Ox1 and not in any pain. No other complaints. PMH/PSH/Meds/SH reviewed and agree with resident's documentation. Afebrile VSS Exam rpeated by me and agree with resident's findings. Labs: BUN/Cr=43/1.53, ALT/AST=43/69, Iezidxh=212, UDS- negative A/P: 1 ) Hepatic encephalopathy- continue lactulose. Will add rifaximin. No evidence of infection causing decompensation. Continue to monitor. 2) DM- continue home meds.
[2019-05-09] MEDS ORDERED: Ondansetron PF 4 MG/2 ML Vial IVP PRN (14:09)
[2019-05-09] MEDS ORDERED: Ondansetron ODT 4 MG TAB SL PRN (14:09)
[2019-05-09] MEDS ORDERED: Acetaminophen 325 MG TAB PO PRN (14:16)
[2019-05-09] MEDS ORDERED: Ondansetron ODT 4 MG TAB PO PRN (14:16)
[2019-05-09 15:32] VITALS: BMI 29.5
[2019-05-09] MEDS: Lactated Ringer's 1,000 ML IV SCH (17:47)
[2019-05-09] MEDS ORDERED: INSULIN ASPART 25 UNIT SQ SCH (18:00)
[2019-05-09] MEDS ORDERED: Non-Formulary Item 1 EACH (Insulin Degludec [Tresiba Flextouch U-200] 20 UNIT) SQ SCH (18:00)
[2019-05-09] MEDS ORDERED: Potassium Chloride 20 MEQ TAB PO SCH (18:00)
[2019-05-09] MEDS ORDERED: Benzonatate 100 MG CAP PO PRN (18:30)
[2019-05-09] MEDS: Rifaximin 550 MG TAB PO SCH (22:15)
[2019-05-09] MEDS: AcetaZOLAMIDE 250 MG TAB PO SCH (22:16)
--- NOTE | 2019-05-10 01:38 | PDOC.BPN ---
- Brief Progress Note Checked on patient;s mental status Knows name, and month of April He knows he is in hospital but thinks it is in [place] So AxOx2, imporved from AxOx1 at admission No BM yet Still confused follows commands, bmx rider both hands, raises legs off bed overall seems to be improving from time of admission
[2019-05-10 04:08] LABS: Anion Gap 12 mmol/L (10-20); BUN (Urea Nitrogen) 31 mg/dL (8.4-25.7); Calc. Creatinine Clearance 82 mL/min (70-130); Calcium 9.7 mg/dL (7.8-10.44); Carbon Dioxide 26 mmol/L (23-31); Chloride 101 mmol/L (98-107); Estimated GFR-MDRD 77; Glucose 212 mg/dL (83-110); Sodium 136 mmol/L (136-145)
[2019-05-10 04:11] LABS: Potassium 2.8 mmol/L (3.5-5.1)
[2019-05-10] MEDS ORDERED: Potassium Chloride 20 MEQ in Premix Bag 1 BAG IVPB SCH (04:30)
[2019-05-10] MEDS ORDERED: Potassium Chloride 20 MEQ TAB PO SCH (04:30)
[2019-05-10] MEDS ORDERED: Levothyroxine Sodium 112 MCG TAB PO SCH (06:00)
--- NOTE | 2019-05-10 06:23 | PDOC.FM ---
- Subjective Subjective: Multiple BM overnight by staff. Family reports improved mentation. Agreeable with increasing lactulose today and trending mental status. Agreeable with possible discharge today vs tomorrow. - Objective Vital Signs & Weight: Vital Signs (12 hours) Temp Pulse Resp BP Pulse Ox 05/10/19 04:48 97.8 F 62 15 122/60 96 05/09/19 23:51 97.6 F 72 16 159/77 H 97 05/09/19 20:15 97.8 F 68 18 122/69 96 Weight Weight 93.531 kg Result Diagrams: 05/09/19 10:27 05/10/19 12:54 Phys Exam - Physical Examination Constitutional: NAD HEENT: moist MMs Very mild scleral icterus Neck: supple, full ROM Scattered crackles, good air movement Cardiovascular: RRR, no significant murmur Mild distention, no fluid wave, non tender Musculoskeletal: no edema, pulses present Neurological: moves all 4 limbs Psychiatric: normal affect Deviation from normal: Alert, oriented to person, place, and the month, mental status improved nearing baseline per family Skin: no rash, cap refill <2 seconds Dx/Plan (1) Liver cirrhosis Code(s): K74.60 - UNSPECIFIED CIRRHOSIS OF LIVER Status: Acute (2) Hepatic encephalopathy Code(s): K72.90 - HEPATIC FAILURE, UNSPECIFIED WITHOUT COMA Status: Acute (3) DM2 (diabetes mellitus, type 2) Status: Chronic Qualifiers: Diabetes mellitus snf insulin use: with snf use Diabetes mellitus complication status: with circulatory complication Diabetes mellitus complication detail: with other circulatory complications Qualified Code(s): E11.59 - Type 2 diabetes mellitus with other circulatory complications; Z79.4 - half-way (current) use of insulin; Z79.4 - continuous churn buttermaker (current) use of insulin; Z79.4 - half-way (current) use of insulin; Z79.4 - half-way (current) use of insulin (4) HTN (hypertension) Code(s): I10 - ESSENTIAL (PRIMARY) HYPERTENSION Status: Chronic Qualifiers: Hypertension type: essential hypertension Qualified Code(s): I10 - Essential (primary) hypertension - Plan Plan: Hepatic Encephalopathy - Rifaximin - Lactulose QID, additional dose this morning - Couple bowel movements overnight, will monitor for continued BM's this morning and trend mental status Liver Cirrhosis - Continue current regimen DM2 - Accuchecks - Continue home regimen - Consistent carb diet HTN - Continue home meds All other chronic conditions reviewed and medications to be restarted as appropriate. PCP: Dr. Beauchamp CODE STATUS: FULL CODE Disposition: Inpt medical for mental status monitoring and titration of lactulose and bowel regimen Addendum - Attending - Attending Attestation Date/Time: 05/10/19 8268 I personally evaluated the patient and discussed the management with Dr. Bess I agree with the History, Examination, Assessment and Plan documented above with any addition or exceptions noted below. Etiology cirrhosis not alcohol or viral related,autoimmune,hemochromatosis,celiac, vicente,alpha-1 trypsin def but rather cardiac related from right sided failure. Patient spouse reports Mental Status at baseline no asterixis will trend lfts and ammonia level need to titrate lactulose to minimum of at least one daily BM. If no recent abdominal US obtained it would be worthwhile r/o portal vein occlusion and any fibrosis.
[2019-05-10] MEDS ORDERED: Spironolactone 100 MG TAB PO SCH (08:00)
[2019-05-10] MEDS: Torsemide 20 MG TAB PO SCH ×2 (08:46→13:23)
[2019-05-10] MEDS: AcetaZOLAMIDE 250 MG TAB PO SCH (08:46)
[2019-05-10] MEDS: Rifaximin 550 MG TAB PO SCH (08:48)
[2019-05-10] MEDS ORDERED: Prevnar 13-Val Conj/PF 0.5 ML SYRINGE IM ONE (09:00)
[2019-05-10] MEDS ORDERED: Enoxaparin Sodium 40 MG/0.4 ML SYRINGE SC SCH (09:00)
[2019-05-10] MEDS ORDERED: FLU VACC TS2019-20(65YR UP)/PF 180 MCG/0.5 ML SYRINGE IM ONE (09:00)
[2019-05-10] MEDS ORDERED: Aspirin Chewable 81 MG TAB PO SCH (09:00)
[2019-05-10 10:33] LABS: Amphetamine Not Detected (NotDetected); Barbiturates Screen Not Detected (NotDetected); Benzodiazepine Screen Not Detected (NotDetected); Cocaine Metabolite Screen Not Detected (NotDetected); Medtox Control Line Valid? VALID (VALID); Medtox Reader # READER 4; Methadone Not Detected (NotDetected); Methamphetamine Not Detected (NotDetected); Opiate Screen Not Detected (NotDetected); Oxycodone Screen Not Detected (NotDetected); Phencyclidine (PCP) Not Detected (NotDetected); THC/Cannabinoid Screen Not Detected (NotDetected); Tricyclic Screen Not Detected (NotDetected)
[2019-05-10] MEDS: Lactated Ringer's 1,000 ML IV SCH (12:46)
[2019-05-10] MEDS ORDERED: HumaLOG 300 UNITS/3 ML VIAL SC PRN ×2 (12:56)
[2019-05-10] MEDS ORDERED: Dextrose 50% Abboject 50 ML SYRINGE SLOW IVP PRN (12:56)
[2019-05-10] MEDS ORDERED: Dextrose 5% in Water 1,000 ML IV PRN (12:56)
[2019-05-10 13:39] LABS: Anion Gap 15 mmol/L (10-20); BUN (Urea Nitrogen) 28 mg/dL (8.4-25.7); Calc. Creatinine Clearance 59 mL/min (70-130); Calcium 10.4 mg/dL (7.8-10.44); Carbon Dioxide 26 mmol/L (23-31); Chloride 99 mmol/L (98-107); Estimated GFR-MDRD 53; Glucose 350 mg/dL (83-110); Potassium 4.1 mmol/L (3.5-5.1); Sodium 136 mmol/L (136-145)
[2019-05-10 16:07] VITALS: BP 143/78; TEMP 98.1
--- NOTE | 2019-05-11 01:48 | DIS ---
DATE OF ADMISSION: 05/09/2019 DATE OF DISCHARGE: 05/10/2019 ADMITTING ATTENDING: Tanja Rodriguez MD DISCHARGE ATTENDING: Darinel Castillo MD RESIDENT: Abdon Bess DO CONSULTS: None. PROCEDURES: None. IMAGING: Brain CT without contrast; findings: Stable head CT with chronic findings of distal vertebral artery atherosclerotic calcification noted bilaterally. Chest x-ray; findings: No acute findings, chronic findings of old impacted fracture of left proximal humerus and stable increased linear interstitial density. PRIMARY DIAGNOSES: Acute metabolic encephalopathy secondary to cirrhosis, hepatic encephalopathy. SECONDARY DIAGNOSES: Liver cirrhosis, type 2 diabetes, hypertension. DISCHARGE MEDICATIONS: 1. Xifaxan 550 mg p.o. b.i.d. 2. Tresiba 20 unit daily. 3. NovoLog 25 units subcu as previously directed. 4. Lactulose 60 mL p.o. as previously directed, titrating to greater than 1 bowel movement per day and less than 4. 5. Levothyroxine 112 mcg daily. 6. Aspirin 81 mg daily. 7. Metolazone 2.5 mg daily. 8. Benzonatate 200 mg p.o. t.i.d. p.r.n. 9. Diamox 250 mg p.o. b.i.d. 10. Aldactone 100 mg p.o. q.a.m. 11. Torsemide 20 mg p.o. b.i.d. HISTORY OF PRESENT ILLNESS AND HOSPITAL COURSE: An 83-year-old male with known history of hepatic cirrhosis secondary to congestive heart failure, presented with his and son to emergency department for altered mental status. Son and noted that these symptoms have been progressive over the last 2 days. ER workup was significant for an ammonia level of 109, creatinine of 1.53, and potassium of 2.0. The patient's son noted that the patient had not had a bowel movement within last few days; however, was continuing to receive his lactulose treatment. The patient was admitted to the medical floor for continued monitoring of his mental status and titration of his lactulose. The patient received 2 doses of his lactulose earlier in the afternoon, had his potassium repleted, and received IV fluids. The subsequent day, the patient's mental status had improved to his baseline following 2 bowel movements the night before. The patient again received lactulose with an additional dose. The patient then had numerous bowel movements and was conversing and eating at the time of discharge. Prior to discharge, patient's ammonia level had decreased to 55. The patient and family were instructed on proper titration of the patient's lactulose as an outpatient and recommended to follow up with the patient's PCP within the next 7 days to confirm compliance and understanding of his regimen. The patient and family expressed understanding to this and all questions were answered prior to discharge. DISCHARGE INSTRUCTIONS: 1. Location: Home. 2. Diet: Heart healthy. 3. Activity: As tolerated. 4. Followup: PCP, Dr. Beauchamp within 7 days. Job ID: [id number]
[2019-05-11] MEDS ORDERED: Metolazone 5 MG TAB PO SCH (09:00)
== END 2019-05-10 17:11 | disposition home or self-care (01) ==
LOC: ERS 10:03 → T4-A 14:13
PROVIDERS: ADMIT Family Medicine; ATTEND Family Medicine
DX: K72.90 Hepatic failure, unspecified without coma (principal); K74.60 Unspecified cirrhosis of liver; G93.41 Metabolic encephalopathy; E11.9 Type 2 diabetes mellitus without complications; I11.0 Hypertensive heart disease with heart failure; I50.30 Unspecified diastolic (congestive) heart failure; Z79.2 Long term (current) use of antibiotics; Z79.4 Long term (current) use of insulin; Z79.82 Long term (current) use of aspirin; Z79.899 Other long term (current) drug therapy; Z87.891 Personal history of nicotine dependence; Z88.0 Allergy status to penicillin
CPT/HCPCS: 70450; 71045; 80048 ×2; 80053; 80306; 81003; 82140 ×2; 82550; 82962 ×2; 83690; 84484; 85025; 93005; 96372; 99285; G0378 ×3; 36415; 36416; J1650; J3480

== ENCOUNTER 2019-05-15 21:58 | Inpatient (IN) | payer MEDICARE, BC ==
--- NOTE | 2019-05-15 23:02 | CT ---
Exam: Head CT without contrast HISTORY: Altered mental status. Cirrhosis. COMPARISON: 05/09/2019 FINDINGS: Hemorrhage: No intraparenchymal hemorrhage or extra-axial hematoma. Brain parenchyma: Cortical ma-white matter differentiation is preserved. No mass effect or midline shift. Basilar cisterns are patent.Age-appropriate atrophy. Chronic small vessel ischemic changes of the white matter. Ventricular system: Ventricles and sulci are patent and symmetric. Calvarium: Intact. Sinuses and mastoid air cells: Opacification of the right sphenoid sinus. Partial opacification poste rior right ethmoid air cells. The degree of opacification of the sinuses has not changed. IMPRESSION: 1. No acute intracranial process 2. Stable opacification of the sinuses.
[2019-05-15 23:05] LABS: #Eosinphils 0.7 thou/uL (0.0-0.7); #Lymphocytes 1.6 thou/uL (1.20-3.40); #Monocytes 0.6 thou/uL (0.11-0.59); #Neutrophils 5.7 thou/uL (1.40-6.50); %Basophils 0.5 % (0.0-1.0); %Eosinophils 8.4 % (0.0-10.0); %Lymphocytes 18.7 % (21.0-51.0); %Monocytes 6.4 % (0.0-10.0); %Neutrophils 66.1 % (42.0-75.0); Hemoglobin 15.5 g/dL (14.0-18.0); Mean Corpuscular HGB CONC 34.5 g/dL (32.0-36.0); Mean Corpuscular Hemoglobin 33.3 pg (27.0-31.0); Mean Corpuscular Volume 96.3 fL (78.0-98.0); Platelet Count 200 thou/uL (130-400); RBC Distribution Width 14.9 % (11.5-14.5); Red Blood Cell (RBC) Count 4.65 mill/uL (4.70-6.10); White Blood Cell (WBC) Count 8.6 thou/uL (4.8-10.8)
[2019-05-15 23:11] LABS: INR-International Normal Ratio 1.1; PTT 32.1 SEC (22.9-36.1); Prothrombin Time 14.4 SEC (12.0-14.7)
--- NOTE | 2019-05-15 23:20 | RAD ---
Exam: Chest one view HISTORY:Altered mental status Comparison: 05/09/2019 FINDINGS: Cardiac silhouette: Normal Aorta: Unremarkable Pulmonary vessels: Normal Costophrenic angles: Clear LUNGS: No masses or consolidation. Chronic lung parenchymal changes. Pneumothorax: None Osseous abnormalities: No acute abnormality. Chronic changes in the proximal left humerus IMPRESSION: Chronic lung parenchymal changes. No acute cardiopulmonary process.
[2019-05-15 23:22] LABS: ALT (SGPT) 152 U/L (8-55); AST (SGOT) 147 U/L (5-34); Alkaline Phosphatase 397 U/L (40-110); Anion Gap 19 mmol/L (10-20); BUN (Urea Nitrogen) 34 mg/dL (8.4-25.7); Bilirubin, Total 2.3 mg/dL (0.2-1.2); Calc. Creatinine Clearance 0 mL/min (70-130); Calcium 10.2 mg/dL (7.8-10.44); Carbon Dioxide 29 mmol/L (23-31); Chloride 91 mmol/L (98-107); Estimated GFR-MDRD 30; Globulin 4.4 g/dL (2.4-3.5); Glucose 304 mg/dL (83-110); Protein, Total 8.4 g/dL (5.8-8.1); Sodium 136 mmol/L (136-145)
[2019-05-15 23:24] LABS: Potassium 2.9 mmol/L (3.5-5.1)
[2019-05-15 23:30] LABS: Bilirubin Negative (Negative); Blood, Urine Negative (Negative); Clarity Clear (Clear); Glucose, Urine (Dipstick) Normal (Negative); Leukocyte Negative Leu/uL (Negative); Nitrite Negative (Negative); Protein, Urine (Dipstick) Negative (Neg-Trace)
--- NOTE | 2019-05-16 00:13 | PDOC.FPRHP ---
- History of Present Illness Chief Complaint: altered mental status. History of Present Illness: Pt is 83 yo male here w/ altered mental status per family. Patient unable to provide history. Details provided by ER reoprt and call made to son to confirm code status. Pt recently admitted and discharged on 05/10 for same problem. Son reports pt never really got back to baseline. Reports no BMs yesterday, had a good BM today. Family reports pt becomes altered when ammonia levels go above 30. Pt denies any pain, headache or fall; however, ROS unreliable because he was altered when evaluated. ED Course: In ED, received 500mL NS bolus and 40mEq IV potassium. - Allergies/Adverse Reactions Allergies Allergy/AdvReac Type Severity Reaction Status Date / Time Penicillins Allergy Hives Verified 05/16/19 03:39 - Home Medications Medication Instructions Recorded Confirmed Type AcetaZOLAMIDE [Diamox] 250 mg PO BID-AC 05/16/19 05/16/19 History Aspirin [Ecotrin] 81 mg PO DAILY 05/16/19 05/16/19 History Lactulose 10 GM/15ML Oral Jenna 60 g PO QID 05/16/19 05/16/19 History [Lactulose] Levothyroxine Sodium [Synthroid] 112 mcg PO DAILY 05/16/19 05/16/19 History Metolazone 5 mg PO ASDIR #14 05/16/19 05/16/19 Rx Rifaximin [Xifaxan] 550 mg PO BID 05/16/19 05/16/19 History Spironolactone 25 mg PO BID-AC 05/16/19 05/16/19 History Torsemide 20 mg PO TID 05/16/19 05/16/19 History - History PMHx: chronic a-fib, CHF, liver cirrhosis from CHF, T2DM, hx of PE in 1970s, hypothyroidism, PSHx: - cholecystectomy - thyroidectomy/parathyroidectomy - R knee replacement FHx: not obtained Social: - lives at home w/ family - Review of Systems ROS unobtainable: due to mental status - Vital signs BP: 127/70, Pulse: 76, Resp: 18, Temp: 98.4 (Oral), Pain: 0, O2 sat: 99 on ( Room Air), Time: 05/16/2019 01:09. - Physical Exam Constitutional: NAD, awake, alert and oriented HEENT: normocephalic and atraumatic, PERRLA, conjunctiva clear, no scleral icterus, grossly normal vision, grossly normal hearing -HEENT: mucus membranes dry Neck: trachea midline, no LAD, no thyromegaly Heart: RRR, normal S1/S2 (systolic 2/6 ejection murmur) Lungs: CTAB, no respiratory distress Abdomen: soft, non-tender -Abdomen: mild distension w/ dullness to percussion over L lateral area, mild fluid wave Neurological: no focal deficit, CN II-XII intact, normal sensation, other ( strength 5/5 b/l in LE & UE) Skin: no rash/lesions, no jaundice -Heme/Lymphatic: moderate arm bruising -Psychiatric: AxO x2, knows place and self, does not know year. FMR H&P: Results - Labs Result Diagrams: 05/16/19 04:40 05/16/19 11:28 Lab results: WBC 8.6 thou/uL (4.8-10.8) 05/15/19 22:46 Hgb 15.5 g/dL (14.0-18.0) 05/15/19 22:46 Hct 44.8 % (42.0-52.0) 05/15/19 22:46 MCV 96.3 fL (78.0-98.0) 05/15/19 22:46 Plt Count 200 thou/uL (130-400) 05/15/19 22:46 Neutrophils % 66.1 % (42.0-75.0) 05/15/19 22:46 Sodium 136 mmol/L (136-145) 05/15/19 22:46 Potassium 2.9 mmol/L (3.5-5.1) L* 05/15/19 22:46 Chloride 91 mmol/L (98-107) L 05/15/19 22:46 Carbon Dioxide 29 mmol/L (23-31) 05/15/19 22:46 BUN 34 mg/dL (8.4-25.7) H 05/15/19 22:46 Creatinine 2.12 mg/dL (0.7-1.3) H 05/15/19 22:46 Glucose 304 mg/dL (83-110) H 05/15/19 22:46 Calcium 10.2 mg/dL (7.8-10.44) 05/15/19 22:46 Total Bilirubin 2.3 mg/dL (0.2-1.2) H 05/15/19 22:46 AST 147 U/L (5-34) H 05/15/19 22:46 ALT 152 U/L (8-55) H 05/15/19 22:46 Alkaline Phosphatase 397 U/L (40-110) H 05/15/19 22:46 Ammonia 34 umol/L (18-72) 05/15/19 22:46 B-Natriuretic Peptide 33.5 pg/mL (0-100) 05/15/19 22:46 Serum Total Protein 8.4 g/dL (5.8-8.1) H 05/15/19 22:46 Albumin 4.0 g/dL (3.4-4.8) 05/15/19 22:46 Urine Ketones Negative mg/dL (Negative) 05/15/19 23:15 Urine Blood Negative (Negative) 05/15/19 23:15 Urine Nitrite Negative (Negative) 05/15/19 23:15 Ur Leukocyte Esterase Negative Zoraida/uL (Negative) 05/15/19 23:15 - EKG Interpretation EKG: a-fib w/ pacemaker functioning - Radiology Interpretation CT scan - head Status: report reviewed by me (negative) Chest x-ray Status: report reviewed by me (negative) FMR H&P: A/P - Problem List (1) Hepatic encephalopathy Current Visit: No Status: Acute Code(s): K72.90 - HEPATIC FAILURE, UNSPECIFIED WITHOUT COMA (2) Hypokalemia Current Visit: No Status: Acute Code(s): E87.6 - HYPOKALEMIA (3) Liver cirrhosis Current Visit: No Status: Acute Code(s): K74.60 - UNSPECIFIED CIRRHOSIS OF LIVER (4) (HFpEF) heart failure with preserved ejection fraction Current Visit: No Status: Chronic Code(s): I50.30 - UNSPECIFIED DIASTOLIC ( CONGESTIVE) HEART FAILURE (5) Chronic a-fib Current Visit: No Status: Chronic Code(s): I48.2 - CHRONIC ATRIAL FIBRILLATION * DO NOT USE * Comment: rate controlled, on Xarelto (6) DM2 (diabetes mellitus, type 2) Current Visit: No Status: Chronic Qualifiers: Diabetes mellitus half-way insulin use: with half-way use Diabetes mellitus complication status: with circulatory complication Diabetes mellitus complication detail: with other circulatory complications Qualified Code(s): E11.59 - Type 2 diabetes mellitus with other circulatory complications; Z79.4 - USP (current) use of insulin; Z79.4 - ferry terminal supervisor (current) use of insulin; Z79.4 - USP (current) use of insulin; Z79.4 - USP (current) use of insulin Comment: (7) HENRIQUE (acute kidney injury) Current Visit: Yes Status: Acute Code(s): N17.9 - ACUTE KIDNEY FAILURE, UNSPECIFIED - Plan 83 yo M w/ multiple chronic conditions admitted for: Acute metabolic encephalopathy Liver cirrhosis 2/2 CHF - Mental status likely 2/2 to chronic cirrhosis of liver. Considered vascular causes, other metabolic derangements, neoplasms, sepsis, trauma/fall (denied), autoimmune. All of these less likely than pt's hepatic encephalopathy given lab results and imaging. - CT head: negative for acute change - CXR: negative for acute change. - ammonia level mildly elevated at 34. - having BMs, but not as mental status baseline since last admission. - Will give lactulose 40mg (60mL) q6hr and titrate 3-4 BMs per day. Hypokalemia - acutely low at 2.9. Receiving 40 mEq IV in ER. - BMP w/ AM labs - begin 40 mEq in AM daily Acute kidney injury - pt appears dehydrated - Creatinine bumped from last value in previous admission - Fluid resuscitate carefully given CHF history w/ LR of 100 mL/hr Transaminitis - acutely increased. Will monitor w/ AM CMP. Chronic conditions: T2DM - lantus 20 units in AM, normally takes tresiba and is on some sort of home sliding scale of which we do not know the specifications - Humalog sliding scale. Is on novolog sliding scale at home, up to 25 units. CHF HTN - hold torsemide & metolazone. Continue diamox and spironolactone. Chronic a-fib - EKG unchanged - continue ASA81 in AM. Prognosis: poor. Consulted Case management and palliative care. Will discuss w/ family tomorrow. Code: FULL. Verified this by calling patient's son. Fluids: LR at 100mL/hr Diet: HH, CC VTE ppx: Heparin GI ppx: none Dasha Lucio MD PGY1 Disposition/LOS: medical obs. expected LOS < 48H. FMR H&P: Upper Level - Plan Date/Time: 05/16/19 0009 PCP: annie HPI: This is a chronically ill 82 yo M presenting with AMS. He has hepatic cirrhosis 2/2 CHF and distant history of heavy drinking. His PMH includes HTN, HFpEF, pulm HTN, DM2, and hx of PE. Patient is AxOx2, but this varies for different providers. For this provider, he knew he was at [facility], Knew his name, knew his childrens names, and knew Eze was president. He knew his birthday was close but did not know the year. He denied a BM today. He denied pain, fevers, chills, sweats, N/V/D. History is mainly taken from son and who stated they brought him in because he was somewhat more confused today but he has never really been back to baseline since leaving the hospital 1 week ago. They stated he had 2 good bowel movements today and have not been missing any doses of lactulose. Denied fevers, chills, sweats, N/V/D. REVIEW OF SYSTEMS: Gen: no fever, chills, or sweats Neuro: denies headache Eyes: no visual changes ENT: no hearing changes, no sore throat, no congestion Resp: denies cough, SOB Card: denies CP, palpitations GI: see hpi Skin: no rash, no erythema PHYSICAL EXAMINATION: General: NAD, alert and oriented x2 HEENT: PERRLA, EOMI, normal sclera, oropharynx without erythema or exudate, mild dry oral mucosa Neck: Supple. Full ROM. Heart/Cardiovascular System: RRR, Cap refill < 3 seconds, 2/6 systolic murmur Lungs/Respiratory System: CTA-B, no resp distress Abdomen/Gastro-Intestinal System: no abdominal tenderness, normal bowel sounds, mild distension, dullness to percussion, no pain, no tenderness, no rebound, bedside sono did not reveal any large fluid pockets Extremities: Warm extremities. No cyanosis or edema Neuro: No gross deficits appreciated. CN 2-12 grossly intact Psychiatry: Awake, Alert Skin: No lesions, rashes, or ulcers Musculoskeletal: Full ROM A/P: # Hepatic Encephalopathy, Cirrhosis - lactulose QID, rifaximin - Ammonia 34, often in 100s on previous admissions, family states he gets confused in 30s - MELD- 20, 7-10% 10 day mortality - Palliative consult, case mgmt. consult, may need to explore placement 4th admit in last 2 months - SBP seems unlikely based on exam, no large fluid pockets appreciate, no fevers, hypotension, or abd pain, last admit recovered quickly with tx, hold off for now # HENRIQUE, hypo K - Cr 2.12, baseline around 1.4 - Gentle rehydration - Hold torsemide, metolazone, cont spironolactone - Replete K # DM2 - home regimen # Transaminitis - Up from last admit, bili stable - Possibly 2/2 dehydration # HTN, HFpEF - home meds - Echo mar 2019 shows EF 50-55% - Will monitor volume status and d/c fluids when appropriate Fluids: LR 100 ml/hr Code status: full- confirmed with son PPx: heparin Dispo: anticipate 1-2 day course pending resolution of AMS and possible placement Addendum - Attending - Attending Attestation Date/Time: 05/16/19 5948 I personally evaluated the patient and discussed the management with Dr. Lucio. H&P repeated by me at 1120 am. I agree with the History, Examination, Assessment and Plan documented above with any addition or exceptions noted below. Patient is A&O x 2 (to person and place and his - doesn't know the year) Altered mental status- multifactoral- most likely hepatic encephalopathy-will increase lactulose to try and get ammonia <30. hypokalemia- replace- will discuss with PCP about multiple diuretic usage. HENRIQUE- mild IVF chronic CHF- stable Cirrhoisis
[2019-05-16] MEDS ORDERED: Potassium Chloride 40 MEQ in Sodium Chloride 0.9% 250 ML 250 ML IVPB SCH ×2 (00:15→05:45)
[2019-05-16 00:43] LABS: Lactic Acid 1.5 mmol/L (0.5-2.2)
[2019-05-16] MEDS ORDERED: Ondansetron PF 4 MG/2 ML Vial IVP PRN (00:49)
[2019-05-16] MEDS ORDERED: Dextrose 50% Abboject 50 ML SYRINGE SLOW IVP PRN (00:49)
[2019-05-16] MEDS ORDERED: Dextrose 5% in Water 1,000 ML IV PRN (00:49)
[2019-05-16] MEDS ORDERED: Ondansetron ODT 4 MG TAB PO PRN (00:49)
[2019-05-16] MEDS ORDERED: Benzonatate 100 MG CAP PO PRN (00:56)
[2019-05-16] MEDS: Lactated Ringer's 1,000 ML IV SCH ×2 (02:25→10:43)
[2019-05-16 03:33] VITALS: BMI 30.1
[2019-05-16 04:55] LABS: #Basophils 0.1 thou/uL (0.0-0.2); #Eosinphils 1.2 thou/uL (0.0-0.7); #Lymphocytes 1.6 thou/uL (1.20-3.40); #Monocytes 0.5 thou/uL (0.11-0.59); #Neutrophils 4.8 thou/uL (1.40-6.50); %Basophils 0.7 % (0.0-1.0); %Eosinophils 14.6 % (0.0-10.0); %Lymphocytes 19.6 % (21.0-51.0); %Monocytes 6.5 % (0.0-10.0); %Neutrophils 58.7 % (42.0-75.0); Hemoglobin 15.6 g/dL (14.0-18.0); Mean Corpuscular HGB CONC 34.6 g/dL (32.0-36.0); Mean Corpuscular Hemoglobin 33.1 pg (27.0-31.0); Mean Corpuscular Volume 95.5 fL (78.0-98.0); Mean Platelet Volume 7.8 fL (7.4-10.4); Platelet Count 178 thou/uL (130-400); White Blood Cell (WBC) Count 8.2 thou/uL (4.8-10.8)
[2019-05-16 05:11] LABS: ALT (SGPT) 137 U/L (8-55); AST (SGOT) 97 U/L (5-34); Albumin 3.9 g/dL (3.4-4.8); Alkaline Phosphatase 366 U/L (40-110); Anion Gap 15 mmol/L (10-20); BUN (Urea Nitrogen) 34 mg/dL (8.4-25.7); Bilirubin, Total 2.3 mg/dL (0.2-1.2); Calc. Creatinine Clearance 48 mL/min (70-130); Carbon Dioxide 31 mmol/L (23-31); Chloride 94 mmol/L (98-107); Estimated GFR-MDRD 41; Globulin 4.3 g/dL (2.4-3.5); Glucose 253 mg/dL (83-110); Protein, Total 8.2 g/dL (5.8-8.1); Sodium 137 mmol/L (136-145)
[2019-05-16 05:17] LABS: Potassium 2.5 mmol/L (3.5-5.1)
[2019-05-16] MEDS: HumaLOG 300 UNITS/3 ML VIAL SC PRN ×3 (06:35→22:16)
[2019-05-16] MEDS: Levothyroxine Sodium 112 MCG TAB PO SCH (06:35)
[2019-05-16] MEDS: Spironolactone 25 MG TAB PO SCH ×2 (06:52→17:39)
[2019-05-16] MEDS ORDERED: Spironolactone 100 MG TAB PO SCH (08:00)
[2019-05-16] MEDS ORDERED: Potassium Chloride 20 MEQ TAB PO SCH ×2 (08:00→17:00)
[2019-05-16] MEDS: Aspirin 81 mg Enteric Coated Tablet PO SCH (08:52)
[2019-05-16] MEDS: AcetaZOLAMIDE 250 MG TAB PO SCH ×2 (08:53→17:41)
[2019-05-16] MEDS: Rifaximin 550 MG TAB PO SCH ×2 (08:53→21:44)
[2019-05-16] MEDS: Heparin 5,000 UNITS/ML VIAL SC SCH ×3 (08:53→21:46)
[2019-05-16] MEDS ORDERED: AcetaZOLAMIDE 250 MG TAB PO SCH (09:00)
[2019-05-16] MEDS ORDERED: Levothyroxine Sodium 112 MCG TAB PO SCH (09:00)
[2019-05-16] MEDS ORDERED: Aspirin Chewable 81 MG TAB PO SCH (09:00)
[2019-05-16] MEDS ORDERED: Rifaximin 550 MG TAB PO SCH (09:00)
[2019-05-16] MEDS ORDERED: Insulin Glargine 20 UNITS in Pre-Filled Syringe 1 EACH SC SCH (09:00)
[2019-05-16 11:57] LABS: Anion Gap 19 mmol/L (10-20); BUN (Urea Nitrogen) 30 mg/dL (8.4-25.7); Calc. Creatinine Clearance 49 mL/min (70-130); Calcium 9.6 mg/dL (7.8-10.44); Carbon Dioxide 18 mmol/L (23-31); Chloride 101 mmol/L (98-107); Estimated GFR-MDRD 42; Glucose 354 mg/dL (83-110); Potassium 3.6 mmol/L (3.5-5.1); Sodium 134 mmol/L (136-145)
[2019-05-16] MEDS: Insulin Regular 300 UNITS/3 ML VIAL SC SCH ×2 (17:39→21:59)
[2019-05-16] MEDS: Torsemide 20 MG TAB PO SCH ×2 (17:40→21:44)
[2019-05-17 04:26] LABS: Anion Gap 12 mmol/L (10-20); BUN (Urea Nitrogen) 26 mg/dL (8.4-25.7); Calc. Creatinine Clearance 68 mL/min (70-130); Calcium 9.5 mg/dL (7.8-10.44); Carbon Dioxide 26 mmol/L (23-31); Chloride 102 mmol/L (98-107); Estimated GFR-MDRD 62; Glucose 222 mg/dL (83-110); Sodium 137 mmol/L (136-145)
[2019-05-17 04:29] LABS: Potassium 2.9 mmol/L (3.5-5.1)
[2019-05-17] MEDS ORDERED: Insulin Regular 300 UNITS/3 ML VIAL SC SCH (05:00)
[2019-05-17] MEDS: Potassium Chloride 20 MEQ in Premix Bag 1 BAG IVPB SCH ×2 (05:08→06:49)
--- NOTE | 2019-05-17 05:49 | PDOC.FM ---
- Subjective Subjective: NAEO. Patient's mental status much improved from yesterday on exam this AM. Oriented to person and place and didn't know exact date but knew it wasn't his brithday. Denies being in any pain. 1BM so far this AM per patient. - Objective MAR Reviewed: Yes Vital Signs & Weight: Vital Signs (12 hours) Temp Pulse Resp BP Pulse Ox 05/17/19 04:02 104/59 L 05/17/19 03:38 98.4 F 66 16 97/50 L 97 05/16/19 23:33 97.8 F 70 16 107/59 L 99 05/16/19 19:21 98.2 F 82 20 127/71 99 Weight Weight 94.4 kg I&O: 05/15/19 05/16/19 05/17/19 06:59 06:59 06:59 Intake Total 2263.75 2160 Output Total 1000 Balance 2263.75 1160 Result Diagrams: 05/16/19 04:40 05/17/19 10:53 Phys Exam - Physical Examination Constitutional: NAD HEENT: moist MMs Neck: supple Respiratory: no wheezing, no rales, no rhonchi, clear to auscultation bilateral irregularly irregular rhythm with normal rate & 4/6 systolic flow murmur Gastrointestinal: non-tender, positive bowel sounds mild distension Musculoskeletal: no edema Neurological: non-focal, moves all 4 limbs Psychiatric: normal affect Deviation from normal: oriented to person and place Skin: no rash, normal turgor Dx/Plan (1) HENRIQUE (acute kidney injury) Code(s): N17.9 - ACUTE KIDNEY FAILURE, UNSPECIFIED Status: Acute (2) Hepatic encephalopathy Code(s): K72.90 - HEPATIC FAILURE, UNSPECIFIED WITHOUT COMA Status: Acute (3) Hypokalemia Code(s): E87.6 - HYPOKALEMIA Status: Acute (4) (HFpEF) heart failure with preserved ejection fraction Code(s): I50.30 - UNSPECIFIED DIASTOLIC (CONGESTIVE) HEART FAILURE Status: Chronic (5) Chronic a-fib Code(s): I48.2 - CHRONIC ATRIAL FIBRILLATION * DO NOT USE * Status: Chronic (6) Cirrhosis of liver with ascites Code(s): K74.60 - UNSPECIFIED CIRRHOSIS OF LIVER; R18.8 - OTHER ASCITES Status : Chronic (7) DM2 (diabetes mellitus, type 2) Status: Chronic Qualifiers: Diabetes mellitus halfway insulin use: with tank terminal gauger use Diabetes mellitus complication status: with circulatory complication Diabetes mellitus complication detail: with other circulatory complications Qualified Code(s): E11.59 - Type 2 diabetes mellitus with other circulatory complications; Z79.4 - USP (current) use of insulin; Z79.4 - termite renewal inspector (current) use of insulin; Z79.4 - termite renewal inspector (current) use of insulin; Z79.4 - termite renewal inspector (current) use of insulin (8) HTN (hypertension) Code(s): I10 - ESSENTIAL (PRIMARY) HYPERTENSION Status: Chronic Qualifiers: Hypertension type: essential hypertension Qualified Code(s): I10 - Essential (primary) hypertension (9) Hypothyroidism Code(s): E03.9 - HYPOTHYROIDISM, UNSPECIFIED Status: Chronic (10) LEONARDO on CPAP Code(s): G47.33 - OBSTRUCTIVE SLEEP APNEA (ADULT) (PEDIATRIC); Z99.89 - DEPENDENCE ON OTHER ENABLING MACHINES AND DEVICES Status: Chronic (11) Severe tricuspid regurgitation Code(s): I07.1 - RHEUMATIC TRICUSPID INSUFFICIENCY Status: Chronic - Plan Plan: 83 yo M w/ multiple chronic conditions admitted for: Acute metabolic encephalopathy - Patient still slightly confused this AM w/ 5 BMs yesterday (per nursing) & 1 today (per patient) but Ammonia up to 71 this AM. - Will continue lactulose 40mg (60mL) q6hr and titrate to have 3-4 BMs per day. - Continue to trend ammonia levels. Hypokalemia - acutely low again this AM at 2.9. ISAEL to receive 40 mEq IV per the night team & will get 40 mEq PO BID-WM today as well. Weight down some from admission so will hold torsemide today & only give metolazone if weight exceeds 210lbs per patient's PCP. - BMP @ 11:00 today & Qd in the AM. Acute kidney injury, improving - s/p gentle IVFs yesterday & holding some diuretics so eGFR up to 62 this AM. - Will continue to monitor & renally dose meds PRN. Transaminitis - acutely increased on admission but down slightly w/ repeat after some fluids. - Will continue to monitor w/ AM CMPs. Chronic conditions: Liver cirrhosis 2/2 CHF - Continue home meds. T2DM - BG not controlled since admission. Will increase AM lantus to 26U QAM & will give 6U of ISAEL regular insulin with bfast & dinner per PCP & titrate PRN for a loose goal of at least <300 while in hospital. - Continue additional PRN SSI CHF - Aware, not in acute exacerbation. Continue QD weights & home meds. HTN - Will continue to hold torsemide & metolazone 2/2 low K but will continue diamox and spironolactone. Chronic a-fib - EKG unchanged - continue ASA81 in AM. Code: FULL. Fluids: SL Diet: HH, CC VTE ppx: Heparin GI ppx: none Disposition/LOS: Will continue to monitor on oncology & work to induce regular BMs & replace K again today. Possible d/c home tomorrow pending clinical course. Addendum - Attending - Attending Attestation Date/Time: 05/17/19 6324 I personally evaluated the patient and discussed the management with Dr. Moore at 1055 I agree with the History, Examination, Assessment and Plan documented above with any addition or exceptions noted below. Metabolic encephalopathy from hyperammonia and hypokalemia- continue lactulose and K supplementation Cirrhosis- ammonia-lactulose as above. Chronic CHF without exac- Dr. Moore discussed with Dr. Martinez (pt's PCP) about diuretic plan on discharge HypoK-replace
[2019-05-17] MEDS: Levothyroxine Sodium 112 MCG TAB PO SCH (06:08)
[2019-05-17 06:15] LABS: ALT (SGPT) 112 U/L (8-55); AST (SGOT) 61 U/L (5-34); Albumin 3.4 g/dL (3.4-4.8); Alkaline Phosphatase 305 U/L (40-110); Bilirubin, Direct 0.9 mg/dL (0.1-0.3); Bilirubin, Total 1.7 mg/dL (0.2-1.2); Protein, Total 7.1 g/dL (5.8-8.1)
[2019-05-17] MEDS: HumaLOG 300 UNITS/3 ML VIAL SC PRN ×3 (06:43→16:45)
[2019-05-17] MEDS ORDERED: Senokot S 8.6-50 MG TAB PO SCH ×2 (07:00→21:00)
[2019-05-17] MEDS ORDERED: Polyethylene Glycol 3350 17 GM Packet PO SCH (07:00)
[2019-05-17] MEDS: Potassium Chloride 20 MEQ TAB PO SCH ×2 (08:43→16:47)
[2019-05-17] MEDS: Aspirin 81 mg Enteric Coated Tablet PO SCH (08:44)
[2019-05-17] MEDS: Spironolactone 25 MG TAB PO SCH ×2 (08:44→16:00)
[2019-05-17] MEDS: Rifaximin 550 MG TAB PO SCH ×2 (08:44→21:39)
[2019-05-17] MEDS: AcetaZOLAMIDE 250 MG TAB PO SCH ×2 (08:45→16:00)
[2019-05-17] MEDS: Heparin 5,000 UNITS/ML VIAL SC SCH ×3 (08:51→21:39)
[2019-05-17] MEDS: Insulin Regular 300 UNITS/3 ML VIAL SC SCH ×2 (08:52→16:44)
[2019-05-17] MEDS ORDERED: Insulin Glargine 25 UNITS in Pre-Filled Syringe 1 EACH SC SCH (09:00)
[2019-05-17 11:28] LABS: Anion Gap 13 mmol/L (10-20); BUN (Urea Nitrogen) 24 mg/dL (8.4-25.7); Calc. Creatinine Clearance 64 mL/min (70-130); Calcium 9.2 mg/dL (7.8-10.44); Carbon Dioxide 26 mmol/L (23-31); Chloride 98 mmol/L (98-107); Estimated GFR-MDRD 58; Glucose 354 mg/dL (83-110); Potassium 3.5 mmol/L (3.5-5.1); Sodium 133 mmol/L (136-145)
--- NOTE | 2019-05-17 11:52 | PDOC.PALCO ---
Palliative Care Consult - Consult Details Requesting Physician: Dr Lucio Reason for Consult: goals of care, advance directives assistance, complex decision-making Family Members Present: Patient and son Guillermo who is primary caregiver for his parents - Pertinent HPI 83 year old male with 4 hospital admissions since 03/27/19 and one ER visit. Currently a home health patient. Patient and son provided history. Evidently Mr Bell returned home and remained with confusion. His confusion became worse, and this occurs when he does not have multiple BM daily and his ammonia levels rise causing weakness and confusion. Patient ambulates at home with a walker, but requires assistance for ADL's. Son and patient state he has not consumed alcohol in a very long time, and resulting liver compromise is related to heart failure. - Pertinent PMH CHF, DM, HTN, Afib, cirrhosis - Social History Smoking Status: Never smoker Smoking: no tobacco exposure Alcohol Use: other (has not had a drink in over 10 years) Drug Use History: none Living Situation: other (Son is caregiver for Mr Bell and his ) - Medications MAR Reviewed: Yes - Allergies Allergies/Adverse Reactions: Allergies Allergy/AdvReac Type Severity Reaction Status Date / Time Penicillins Allergy Hives Verified 05/16/19 03:39 - Subjective Awake, alert with family at bedside. No complaints at time of assessment other than weakness and shortness of breath intermittently. - ROS Constitutional: alert, weakness Eyes: other (negative for dry eye, irritation) ENT: other (negative for difficulity swallowing, congestion) Respiratory: other (negative for cough) Gastrointestinal: other (negtaive for nausea, vomiting) Neurological: weakness - Objective Vital Signs: Vital Signs - Most Recent Temp Pulse Resp BP Pulse Ox 98.1 F 70 18 148/73 H 100 05/17/19 08:00 05/17/19 08:00 05/17/19 08:00 05/17/19 08:00 05/17/19 08:00 Palliative Performance Scale: 40 - Physical Exam Constitutional: ill appearing HEENT: EOMI, moist MMs Respiratory: clear to auscultation bilateral, no wheezing, unlabored breathing Cardiovascular: RRR Deviation from normal: murmur Gastrointestinal: continent Deviation from normal: distended, tympani on percussion Genitourinary: continent Musculoskeletal: no cyanosis, no clubbing Neurology: moves all 4 limbs Skin: cap refill <2 seconds, fragile Psychiatric: normal affect - Problem List (1) Palliative care encounter Code(s): Z51.5 - ENCOUNTER FOR PALLIATIVE CARE Current Visit: Yes Status: Acute (2) Acute on chronic diastolic ACC/AHA stage C congestive heart failure Code(s): I50.33 - ACUTE ON CHRONIC DIASTOLIC (CONGESTIVE) HEART FAILURE Current Visit: No Status: Acute (3) Hepatic encephalopathy Code(s): K72.90 - HEPATIC FAILURE, UNSPECIFIED WITHOUT COMA Current Visit: No Status: Acute (4) Liver cirrhosis Code(s): K74.60 - UNSPECIFIED CIRRHOSIS OF LIVER Current Visit: No Status: Acute (5) Physical deconditioning Code(s): R53.81 - OTHER MALAISE Current Visit: No Status: Acute (6) DM2 (diabetes mellitus, type 2) Current Visit: No Status: Chronic Qualifiers: Diabetes mellitus oracle erp architect insulin use: with oracle erp architect use Diabetes mellitus complication status: with circulatory complication Diabetes mellitus complication detail: with other circulatory complications Qualified Code(s): E11.59 - Type 2 diabetes mellitus with other circulatory complications; Z79.4 - assisted (current) use of insulin; Z79.4 - assisted (current) use of insulin; Z79.4 - assisted (current) use of insulin; Z79.4 - assisted (current) use of insulin (7) HTN (hypertension) Code(s): I10 - ESSENTIAL (PRIMARY) HYPERTENSION Current Visit: No Status: Chronic Qualifiers: Hypertension type: essential hypertension Qualified Code(s): I10 - Essential (primary) hypertension - Plan/Recommendations Plan: Met with patient, son and patient . 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 Discussed current situation and patient residing in the home setting, patient continued decline and goal of his care as it appears that a different plan may be considered. Currently home health is in place in the home setting for PT, son states that Mr Bell has not improved and continues to decline. Revisited resuscitation status. *They may consider to return home with home health and PT *Consideration to transition to hospice with current home health company *Patient states he would rather stay at home than "keep coming to the hospital" *called Maik Kruse with [facility] to discuss patient progress since they have had him on home health and possible transition to hospice to manage decline and symptoms of chronic conditions that have a disease trajectory that continues to decline. Maik to follow up with patient and his family. Also communicated with CM and physicians. [70] minutes spent on this encounter with >50% of the time in counseling and coordination of care. Thank you for this very appropriate consult.
[2019-05-17] MEDS ORDERED: Senokot S 8.6-50 MG TAB PO PRN (17:21)
[2019-05-17] MEDS ORDERED: Polyethylene Glycol 3350 17 GM Packet PO PRN (17:21)
[2019-05-18 04:22] LABS: ALT (SGPT) 115 U/L (8-55); AST (SGOT) 71 U/L (5-34); Albumin 3.4 g/dL (3.4-4.8); Alkaline Phosphatase 301 U/L (40-110); Anion Gap 12 mmol/L (10-20); BUN (Urea Nitrogen) 19 mg/dL (8.4-25.7); Bilirubin, Total 1.8 mg/dL (0.2-1.2); Calc. Creatinine Clearance 74 mL/min (70-130); Calcium 9.5 mg/dL (7.8-10.44); Carbon Dioxide 23 mmol/L (23-31); Chloride 104 mmol/L (98-107); Estimated GFR-MDRD 69; Globulin 3.8 g/dL (2.4-3.5); Glucose 214 mg/dL (83-110); Potassium 3.7 mmol/L (3.5-5.1); Protein, Total 7.2 g/dL (5.8-8.1); Sodium 135 mmol/L (136-145)
[2019-05-18] MEDS: HumaLOG 300 UNITS/3 ML VIAL SC PRN ×4 (06:21→20:44)
[2019-05-18] MEDS: Levothyroxine Sodium 112 MCG TAB PO SCH (06:21)
--- NOTE | 2019-05-18 06:55 | PDOC.FM ---
- Subjective Subjective: NAEO. Patient states he is feeling well this AM but slightly more confused on exam. Did not know his birthday OR today's date. Wants to go home. - Objective MAR Reviewed: Yes Vital Signs & Weight: Vital Signs (12 hours) Temp Pulse Resp BP Pulse Ox 05/17/19 20:00 98.8 F 75 18 127/58 L 100 05/17/19 19:40 100 Weight Weight 95.254 kg I&O: 05/16/19 05/17/19 05/18/19 06:59 06:59 06:59 Intake Total 2263.75 2592 1020 Output Total 1675 1130 Balance 2263.75 917 -110 Result Diagrams: 05/16/19 04:40 05/18/19 03:46 Phys Exam - Physical Examination Constitutional: NAD HEENT: moist MMs Neck: supple Respiratory: no wheezing, no rales, no rhonchi, clear to auscultation bilateral Cardiovascular: RRR 4/6 systolic ejection murmur Gastrointestinal: non-tender, positive bowel sounds moderate distension noted Neurological: non-focal, moves all 4 limbs Psychiatric: normal affect Deviation from normal: oriented to person & place only Skin: no rash Dx/Plan (1) HENRIQUE (acute kidney injury) Code(s): N17.9 - ACUTE KIDNEY FAILURE, UNSPECIFIED Status: Resolved (2) Hepatic encephalopathy Code(s): K72.90 - HEPATIC FAILURE, UNSPECIFIED WITHOUT COMA Status: Acute (3) Hypokalemia Code(s): E87.6 - HYPOKALEMIA Status: Resolved (4) (HFpEF) heart failure with preserved ejection fraction Code(s): I50.30 - UNSPECIFIED DIASTOLIC (CONGESTIVE) HEART FAILURE Status: Chronic (5) Chronic a-fib Code(s): I48.2 - CHRONIC ATRIAL FIBRILLATION * DO NOT USE * Status: Chronic (6) Cirrhosis of liver with ascites Code(s): K74.60 - UNSPECIFIED CIRRHOSIS OF LIVER; R18.8 - OTHER ASCITES Status : Chronic (7) DM2 (diabetes mellitus, type 2) Status: Chronic Qualifiers: Diabetes mellitus [facility] insulin use: with [facility] use Diabetes mellitus complication status: with circulatory complication Diabetes mellitus complication detail: with other circulatory complications Qualified Code(s): E11.59 - Type 2 diabetes mellitus with other circulatory complications; Z79.4 - retirement (current) use of insulin; Z79.4 - retirement (current) use of insulin; Z79.4 - retirement (current) use of insulin; Z79.4 - retirement (current) use of insulin (8) HTN (hypertension) Code(s): I10 - ESSENTIAL (PRIMARY) HYPERTENSION Status: Chronic Qualifiers: Hypertension type: essential hypertension Qualified Code(s): I10 - Essential (primary) hypertension (9) Hypothyroidism Code(s): E03.9 - HYPOTHYROIDISM, UNSPECIFIED Status: Chronic (10) LEONARDO on CPAP Code(s): G47.33 - OBSTRUCTIVE SLEEP APNEA (ADULT) (PEDIATRIC); Z99.89 - DEPENDENCE ON OTHER ENABLING MACHINES AND DEVICES Status: Chronic (11) Severe tricuspid regurgitation Code(s): I07.1 - RHEUMATIC TRICUSPID INSUFFICIENCY Status: Chronic - Plan Plan: Plan: 83 yo M w/ multiple chronic conditions admitted for: Acute metabolic encephalopathy - Patient still slightly confused this AM w/ 5 BMs on Tuesday (per nursing), 1 yesterday & 2 so far today but Ammonia up to 75 this AM. - Will continue lactulose 40mg (60mL) q6hr and PRN miralax & docusate & titrate to have 3-4 BMs per day. - Continue to trend ammonia levels w/ repeat this afternoon and if down and patient less confused consider d/c home today vs. tomorrow AM. Hypokalemia, resolved - K WNLs at 3.7 this AM. Will resume torsemide & continue w/ 40mEq BID-WM for today since patient has already had 2 BMs. Will d/c home on 10mEq/day per PCPs recs. Acute kidney injury, resolved - s/p gentle IVFs on admission. eGFR up to 69 this AM. - Will continue to monitor & renally dose meds PRN. Transaminitis - acutely increased on admission but down slightly w/ repeat after some fluids. - Will continue to monitor w/ AM CMPs. Chronic conditions: Liver cirrhosis 2/2 CHF - Continue home meds. T2DM - BG not controlled since admission. Will increase AM lantus to 30U QAM & will give 6U of ISAEL regular insulin with bfast & dinner per PCP & titrate PRN for a a goal of 140-180 while inpatient if possible. - Continue additional PRN SSI. CHF - Aware, not in acute exacerbation. Continue QD weights & home meds. HTN - Will resume torsemide & continue diamox and spironolactone. Will hold metolazone unless weight exceeds 210 lbs. Chronic a-fib - EKG unchanged - continue ASA81 in AM. Code: FULL. Fluids: SL Diet: HH, CC VTE ppx: Heparin GI ppx: none Disposition/LOS: Will continue to monitor on oncology & work to induce regular BMs with possible d/c home later today vs. tomorrow AM.
[2019-05-18] MEDS: Potassium Chloride 20 MEQ TAB PO SCH ×2 (08:07→16:53)
[2019-05-18] MEDS: AcetaZOLAMIDE 250 MG TAB PO SCH ×2 (08:07→16:54)
[2019-05-18] MEDS: Spironolactone 25 MG TAB PO SCH ×2 (08:07→16:53)
[2019-05-18] MEDS: Insulin Regular 300 UNITS/3 ML VIAL SC SCH ×2 (08:07→16:53)
[2019-05-18] MEDS ORDERED: Polyethylene Glycol 3350 17 GM Packet PO SCH (09:00)
[2019-05-18] MEDS ORDERED: Insulin Glargine 30 UNITS in Pre-Filled Syringe 1 EACH SC SCH (09:00)
[2019-05-18] MEDS: Heparin 5,000 UNITS/ML VIAL SC SCH ×3 (09:47→20:04)
[2019-05-18] MEDS: Rifaximin 550 MG TAB PO SCH ×2 (09:49→20:00)
[2019-05-18] MEDS: Aspirin 81 mg Enteric Coated Tablet PO SCH (09:49)
[2019-05-18] MEDS: Torsemide 20 MG TAB PO SCH ×3 (09:49→20:00)
[2019-05-18 14:30] LABS: Anion Gap 9 mmol/L (10-20); BUN (Urea Nitrogen) 17 mg/dL (8.4-25.7); Calc. Creatinine Clearance 69 mL/min (70-130); Calcium 9.5 mg/dL (7.8-10.44); Carbon Dioxide 27 mmol/L (23-31); Chloride 102 mmol/L (98-107); Estimated GFR-MDRD 62; Glucose 194 mg/dL (83-110); Potassium 3.9 mmol/L (3.5-5.1); Sodium 134 mmol/L (136-145)
[2019-05-19 04:36] LABS: Anion Gap 11 mmol/L (10-20); BUN (Urea Nitrogen) 18 mg/dL (8.4-25.7); Calc. Creatinine Clearance 80 mL/min (70-130); Carbon Dioxide 23 mmol/L (23-31); Chloride 105 mmol/L (98-107); Estimated GFR-MDRD 74; Glucose 209 mg/dL (83-110); Potassium 4.2 mmol/L (3.5-5.1); Sodium 135 mmol/L (136-145)
[2019-05-19] MEDS: HumaLOG 300 UNITS/3 ML VIAL SC PRN (05:48)
[2019-05-19] MEDS: Levothyroxine Sodium 112 MCG TAB PO SCH (05:48)
--- NOTE | 2019-05-19 06:27 | PDOC.FM ---
- Subjective Subjective: NAEO. Patient reports that he feels well this AM & is ready to go home. Denies any pain, SOB or LE edema. Is oriented to person, place & year. - Objective MAR Reviewed: Yes Vital Signs & Weight: Vital Signs (12 hours) Temp Pulse Resp BP Pulse Ox 05/18/19 20:00 98.1 F 72 18 136/69 99 Weight Weight 99.019 kg I&O: 05/17/19 05/18/19 05/19/19 06:59 06:59 06:59 Intake Total 2592 1020 360 Output Total 1675 1130 500 Balance 917 -110 -140 Result Diagrams: 05/16/19 04:40 05/19/19 04:03 Phys Exam - Physical Examination Constitutional: NAD HEENT: moist MMs Neck: supple Respiratory: no wheezing, no rales, no rhonchi, clear to auscultation bilateral Cardiovascular: RRR 4/6 systolic ejection murmur Gastrointestinal: soft, non-tender, no distention, positive bowel sounds Musculoskeletal: no edema Neurological: non-focal, moves all 4 limbs Psychiatric: normal affect, A&O x 3 Skin: no rash, normal turgor Dx/Plan (1) Hepatic encephalopathy Code(s): K72.90 - HEPATIC FAILURE, UNSPECIFIED WITHOUT COMA Status: Acute (2) (HFpEF) heart failure with preserved ejection fraction Code(s): I50.30 - UNSPECIFIED DIASTOLIC (CONGESTIVE) HEART FAILURE Status: Chronic (3) Chronic a-fib Code(s): I48.2 - CHRONIC ATRIAL FIBRILLATION * DO NOT USE * Status: Chronic (4) Cirrhosis of liver with ascites Code(s): K74.60 - UNSPECIFIED CIRRHOSIS OF LIVER; R18.8 - OTHER ASCITES Status : Chronic (5) DM2 (diabetes mellitus, type 2) Status: Chronic Qualifiers: Diabetes mellitus middle or intermediate school principal insulin use: with middle or intermediate school principal use Diabetes mellitus complication status: with circulatory complication Diabetes mellitus complication detail: with other circulatory complications Qualified Code(s): E11.59 - Type 2 diabetes mellitus with other circulatory complications; Z79.4 - skilled nursing (current) use of insulin; Z79.4 - skilled nursing (current) use of insulin; Z79.4 - extermination inspector (current) use of insulin; Z79.4 - extermination inspector (current) use of insulin (6) HTN (hypertension) Code(s): I10 - ESSENTIAL (PRIMARY) HYPERTENSION Status: Chronic Qualifiers: Hypertension type: essential hypertension Qualified Code(s): I10 - Essential (primary) hypertension (7) Hypothyroidism Code(s): E03.9 - HYPOTHYROIDISM, UNSPECIFIED Status: Chronic (8) LEONARDO on CPAP Code(s): G47.33 - OBSTRUCTIVE SLEEP APNEA (ADULT) (PEDIATRIC); Z99.89 - DEPENDENCE ON OTHER ENABLING MACHINES AND DEVICES Status: Chronic (9) Severe tricuspid regurgitation Code(s): I07.1 - RHEUMATIC TRICUSPID INSUFFICIENCY Status: Chronic - Plan Plan: 83 yo M w/ multiple chronic conditions admitted for: Acute metabolic encephalopathy, improved - Patient had 5 BMs yesterday & Ammonia down to 35 but son refused to leave home and orange picker patient so he was kept overnight. - Will continue lactulose 40mg (60mL) q6hr with PRN miralax & docusate to ensure patient has 3-4 BMs per day. Hypokalemia, resolved - K WNLs at 4.2 this AM. Will continue torsemide with only 20mEq Qam-WM for today. Will get patient OOB to weight bc bed weight showing >210lbs this AM but clinically patient has less abd distention. If truly >210lbs. will also give metolazone QAM w/ bfast. - Will d/c home on 10mEq/day per PCPs recs. Acute kidney injury, resolved - s/p gentle IVFs on admission. eGFR up to 74 this AM. - Will continue to monitor & renally dose meds PRN. Transaminitis - acutely increased on admission but down slightly w/ repeat after some fluids. - Will continue to monitor w/ AM CMPs. Chronic conditions: Liver cirrhosis 2/2 CHF - Continue home meds. T2DM - BG not controlled since admission. Will increase AM lantus to 34U QAM & will give 8U of ISAEL regular insulin with bfast & dinner per PCP & titrate PRN for a a goal of 140-180 while inpatient if possible. - Continue additional PRN SSI. CHF - Aware, not in acute exacerbation. Continue QD weights & home meds. HTN - Will continue home torsemide, diamox, and spironolactone & metolazone PRN as noted above. Chronic a-fib - EKG unchanged - continue ASA 81 QD Code: FULL. Fluids: SL Diet: HH, CC VTE ppx: Heparin GI ppx: none Disposition/LOS: Will d/c home today with close follow-up with PCP. Addendum - Attending - Attending Attestation Date/Time: 05/19/19 [id number] I personally evaluated the patient at 0655 am and discussed the management with Dr. Moore. I agree with the History, Examination, Assessment and Plan documented above with any addition or exceptions noted below. Stable for d/c home with family.
[2019-05-19] MEDS ORDERED: Insulin Regular 300 UNITS/3 ML VIAL SC SCH ×2 (06:31)
[2019-05-19 07:31] VITALS: BP 112/61; TEMP 97.5
[2019-05-19] MEDS ORDERED: Potassium Chloride 20 MEQ TAB PO SCH (08:00)
[2019-05-19] MEDS: AcetaZOLAMIDE 250 MG TAB PO SCH (08:25)
[2019-05-19] MEDS: Spironolactone 25 MG TAB PO SCH (08:25)
[2019-05-19] MEDS ORDERED: Metolazone 2.5 MG TAB PO SCH (08:30)
[2019-05-19] MEDS ORDERED: Insulin Glargine 34 UNITS in Pre-Filled Syringe 1 EACH SC SCH (09:00)
[2019-05-19] MEDS: Heparin 5,000 UNITS/ML VIAL SC SCH (09:29)
[2019-05-19] MEDS: Rifaximin 550 MG TAB PO SCH (09:30)
[2019-05-19] MEDS: Torsemide 20 MG TAB PO SCH (09:30)
[2019-05-19] MEDS: Aspirin 81 mg Enteric Coated Tablet PO SCH (09:30)
== END 2019-05-19 11:07 | disposition home or self-care (01) | DRG 682 ==
LOC: ERS 21:58 → ONC 05-16 01:32 → OBSVTOIN 05-17 11:39
PROVIDERS: ADMIT Family Medicine; ATTEND Family Medicine
DX: N17.9 Acute kidney failure, unspecified (principal); G93.41 Metabolic encephalopathy; I48.20 Chronic atrial fibrillation, unspecified; I50.32 Chronic diastolic (congestive) heart failure; R18.8 Other ascites; E72.20 Disorder of urea cycle metabolism, unspecified; K72.90 Hepatic failure, unspecified without coma; Z51.5 Encounter for palliative care; K74.60 Unspecified cirrhosis of liver; E87.6 Hypokalemia; E03.9 Hypothyroidism, unspecified; G47.33 Obstructive sleep apnea (adult) (pediatric); I07.1 Rheumatic tricuspid insufficiency; I11.0 Hypertensive heart disease with heart failure; Z90.49 Acquired absence of other specified parts of digestive tract; Z96.651 Presence of right artificial knee joint; E11.9 Type 2 diabetes mellitus without complications; Z86.711 Personal history of pulmonary embolism; E86.0 Dehydration; R40.2362 Coma scale, best motor response, obeys commands, at arrival to emergency department; R40.2142 Coma scale, eyes open, spontaneous, at arrival to emergency department; R40.2242 Coma scale, best verbal response, confused conversation, at arrival to emergency department
CPT/HCPCS: 36415; 36416; 51701; 70450; 71045; 80048; 80053; 80076; 81003; 82140; 83605; 83735; 83880; 84443; 85025; 85610; 85730; 93005; 94760; 96360; 96361; J1644; J1815; J3480; J7050

== ENCOUNTER 2019-06-11 00:38 | Inpatient (IN) | payer MEDICARE, BC ==
[2019-06-11] MEDS ORDERED: Mannitol 12.5 GM/50 ML ONE (00:41)
[2019-06-11] MEDS ORDERED: Lidocaine 1% (PF) 30 ML VIAL ONE (00:58)
[2019-06-11 01:24] LABS: Mean Corpuscular HGB CONC 36.4 g/dL (32.0-36.0); Mean Corpuscular Hemoglobin 35.7 pg (27.0-31.0); Mean Corpuscular Volume 98.2 fL (78.0-98.0); Mean Platelet Volume 7.2 fL (7.4-10.4); Platelet Count 151 thou/uL (130-400); RBC Distribution Width 14.4 % (11.5-14.5); Red Blood Cell (RBC) Count 3.63 mill/uL (4.70-6.10); White Blood Cell (WBC) Count 5.8 thou/uL (4.8-10.8)
[2019-06-11 01:31] LABS: Actual Bicarbonate (HCO3a) 25.4 mEq/L (22-28); Analyzer IN Cardio ER; Base Excess (BEa) 1.7 mEq/L (-2.0 to +3.0); Calcium, Ionized 1.17 mmol/L (1.12-1.30); Carboxyhemoglobin (COHb) 0.2 gm% (0.0-3.0); Hemoglobin (Hb) 13.5 g/dL (14.0-18.0); O2 Tension (PaO2) 74.8 mmHg (> 60.0); Potassium - ABG Lab 2.73 mmol/L (3.70-5.30); pH, Arterial 7.46 (7.35-7.45)
[2019-06-11 01:36] LABS: ALT (SGPT) 95 U/L (8-55); AST (SGOT) 46 U/L (5-34); Albumin 3.4 g/dL (3.4-4.8); Alkaline Phosphatase 224 U/L (40-110); Anion Gap 12 mmol/L (10-20); BUN (Urea Nitrogen) 22 mg/dL (8.4-25.7); Bilirubin, Total 1.5 mg/dL (0.2-1.2); CK (CPK) 47 U/L (30-200); Calc. Creatinine Clearance 0 mL/min (70-130); Calcium 9.1 mg/dL (7.8-10.44); Carbon Dioxide 27 mmol/L (23-31); Chloride 100 mmol/L (98-107); Estimated GFR-MDRD 65; Globulin 3.4 g/dL (2.4-3.5); Glucose 358 mg/dL (83-110); Protein, Total 6.8 g/dL (5.8-8.1); Sodium 136 mmol/L (136-145)
[2019-06-11 01:37] LABS: Puncture Site LRA
[2019-06-11 01:43] LABS: Band 1 % (5-11); Eosinophils 28 % (0-10); Lymphocytes 18 % (21-51); MDiff Complete? YES; Monocytes 4 % (0-10); Neutrophil 47 % (42-75)
[2019-06-11 01:44] LABS: Potassium 2.7 mmol/L (3.5-5.1)
[2019-06-11 01:51] LABS: Bilirubin Negative (Negative); Blood, Urine Negative (Negative); Clarity Clear (Clear); Glucose, Urine (Dipstick) Greater than 1000 mg/dL (Negative); Leukocyte Negative Leu/uL (Negative); Nitrite Negative (Negative); Protein, Urine (Dipstick) 10 mg/dL (Neg-Trace)
[2019-06-11] MEDS ORDERED: Magnesium 2 GM/50 ML BAG (IN WATER) ONE (01:59)
--- NOTE | 2019-06-11 02:01 | OP ---
DATE OF PROCEDURE: 06/11/2019 PREOPERATIVE DIAGNOSES: 1. Status post ground level fall. 2. Apparent traumatic brain injury. 3. Difficulty with IV access. POSTOPERATIVE DIAGNOSES: 1. Status post ground level fall. 2. Apparent traumatic brain injury. 3. Difficulty with IV access. PROCEDURES PERFORMED: Placement of right subclavian central venous catheter. INDICATIONS FOR PROCEDURE: This is an 84-year-old man, who was brought to the emergency department via ground EMS for an apparent ground level fall. The patient describes near syncopal episode, which led to the fall. He may or may not have suffered loss of consciousness. He was found by [facility] with a [place] Coma Scale of 8 and was transported via ground EMS to [facility] in [place], [place]. The patient arrived, GCS is noted at E4 V4 M6. He moved all extremities and following commands. Attempt to secure dependable peripheral IV access was without success. Therefore, proceeded to place a central venous catheter after obtaining informed consent. DESCRIPTION OF PROCEDURE: The patient was placed in supine position following informed consent. The right chest was sterilely prepped and draped in usual fashion. The skin below the right clavicle was anesthetized with 1% lidocaine. The right subclavian vein was cannulated with an 18-gauge introducer needle returning dark venous blood. Guidewire was passed through the needle and advanced into the right subclavian vein without resistance. Needle was withdrawn over the guidewire. A stab incision was made adjacent to the guidewire using 11 scalpel. Dilator was passed over the guidewire dilating the subcutaneous tissues. Dilator was removed and a triple-lumen central venous catheter was advanced over the guidewire and placed in the right subclavian vein without resistance, stopping at the 15 cm lynne. Guidewire was removed. Dark venous blood was aspirated from all 3 ports, which were individually flushed with saline. Catheter was secured to anterior chest wall using 3-0 silk suture at two points. Sterile dressings were applied. Portable chest x-ray confirmed proper placement of the port. No pneumothorax noted. Job ID: [id number]
[2019-06-11] MEDS ORDERED: Potassium Chloride 40 MEQ in Sodium Chloride 0.9% 250 ML 250 ML IVPB SCH (02:30)
--- NOTE | 2019-06-11 03:02 | CON ---
DATE OF CONSULTATION: 06/11/2019 TRAUMA SURGEON: Dr. Castellanos. HISTORY OF PRESENT ILLNESS: The patient is an 84-year-old male who presented to the emergency department via EMS as a level 1 trauma activation. EMS reported the patient had a fall, as they understood it, the patient was on anticoagulant. His GCS was 8 upon their arrival. On arrival to the emergency department, the patient was hemodynamically stable and awake. His GCS was 15. There was some difficulty in obtaining IV access. Subsequently, a right-sided subclavian was placed by Dr. Castellanos. He did receive chest x-ray as well as a pelvic x-ray. He did go to the CT scanner and received CT scans of the head and C-spine. A Seay was also placed in the emergency department. REVIEW OF SYSTEMS: Negative except as indicated in HPI. PAST MEDICAL HISTORY: Positive for liver cirrhosis, heart failure with preserved EF, hypokalemia, hepatic encephalopathy, chronic AFib, type 2 diabetes. PAST SURGICAL HISTORY: The patient reports previous liver surgery. SOCIAL HISTORY: The patient lives at home alone. He was a previous alcoholic. Denies tobacco and drug use. MEDICATIONS: The patient is not able to answer questions about his medications. Reports he previously took anticoagulants, but he has stopped since his last hospital admission. He does take aspirin, however. ALLERGIES: PENICILLIN. PHYSICAL EXAMINATION: VITAL SIGNS: The patient is afebrile. His blood pressure is 137/63, heart rate is in the 60s, respiratory rate is 18, oxygen saturation is 100% on 2 L nasal cannula. PRIMARY SURVEY: Airway intact. Adequate breath sounds bilaterally. 2+ pulses in bilateral radials, femorals, and DPs. GCS 15. Gross motor and sensation are intact. He has a small abrasion to his right side of his forehead. No active bleeding. No lacerations noted. SECONDARY SURVEY: HEAD: Normocephalic. No gross palpable skull deformities. He has a small abrasion to the right forehead. EYES: Pupils 3-2, equal, round, reactive bilaterally. ENT: No hemotympanum. No epistaxis. No septal hematoma. Midface stable to manipulation. No blood in the oropharynx. Dentition is intact. No anterior neck injury/crepitus/tenderness. C-spine, no step-offs or deformities. Nontender. C-collar in place. CHEST: Nontender. No crepitus no abrasions or ecchymosis. Equal chest movement. ABDOMEN: Soft, nontender, nondistended. Previous right lateral surgical scar is well healed. PELVIS: Stable to palpation. Nontender. No abrasions or ecchymosis. RECTAL: Deferred. GENITOURINARY: No blood at the meatus. Normal external genitalia. Seay placed with yellow urine in bag. EXTREMITIES: No gross deformities. No abrasions or ecchymosis. 2+ pulses in bilateral radials, femorals, DPs. BACK/SPINE: No step-offs, deformities, or tenderness to palpation of the thoracic or lumbar spine. No abrasions or ecchymosis noted. NEUROLOGIC: 5/5 strength in bilateral well driller helper, plantar flexion, dorsiflexion. Gross normal sensation x4 extremities. LABORATORY FINDINGS: White count 5.8, hemoglobin 13.0, hematocrit 35.6, platelets 151. Sodium 136, potassium 2.7, chloride 100, bicarb 27, BUN 22, creatinine 1.09, glucose 358, lactic acid 1.7, total bilirubin 1.5, AST 46, ALT 95, alkaline phosphatase 224, ammonia 161. Troponin 0.020. CT scans of the brain, C-spine as well as x-rays of the chest and pelvis were completed, which demonstrated no acute injury. ASSESSMENT: Status post fall, level 1 trauma activation. RECOMMENDATION: The patient does not have any radiographic evidence of traumatic injuries. He is hemodynamically stable, and he is neurologically intact. No further workup needed for trauma. The patient does have an extensive medical history and is hypokalemic in the emergency department. Emergency room physician is replacing electrolyte and finishing up workup for a possible syncope and other medical conditions. Dr. Parkinson to determine disposition. No need to admit to Trauma Service. Trauma Surgery will sign off if the patient is admitted to another service. Please contact our team if you have any questions or if we can be helpful at all. This patient was seen and examined by Dr. Castellanos in the emergency department. Job ID: [id number]
--- NOTE | 2019-06-11 03:25 | PDOC.FPRHP ---
- History of Present Illness Chief Complaint: fall, injury to head History of Present Illness: 84 y/o male with a pmhx of cirrhosis, CHF and hepatic encephalopathy, presents to the ED after a fall this evening on way to bathroom, and hit his head. Pt states he tripped. Denies LOC, N/V. Pt has been more confused lately, with recent constipation. He had several BM's yesterday, but none for the 4 days before. Pt denies any pain at this time. Pt's family called and confirm the pt's story of tripping and falling. ED course: central line R subclavian. TSH 3.82, BNP 51, CK 47, bili 1.5 Trop 0.02, LA 1.7 Ammonia 161 K 2.7 K replaced trauma consulted - Allergies/Adverse Reactions Allergies Allergy/AdvReac Type Severity Reaction Status Date / Time Penicillins Allergy Hives Verified 06/11/19 05:09 - Home Medications Medication Instructions Recorded Confirmed Type AcetaZOLAMIDE [Diamox] 250 mg PO BID-AC 05/16/19 06/11/19 History Aspirin [Ecotrin Low Strength] 81 mg PO DAILY 05/16/19 06/11/19 History Lactulose 10 GM/15ML Oral Jenna 60 g PO QID 05/16/19 06/11/19 History [Lactulose] Levothyroxine Sodium [Synthroid] 112 mcg PO DAILY 05/16/19 06/11/19 History Rifaximin [Xifaxan] 550 mg PO BID 05/16/19 06/11/19 History Spironolactone 25 mg PO BID-AC 05/16/19 06/11/19 History Torsemide 20 mg PO TID 05/16/19 06/11/19 History Metolazone 5 mg PO ASDIR #14 tab 05/18/19 06/11/19 Rx Polyethylene Glycol 3350 [Miralax] 17 gm PO DAILY PRN pk 05/18/19 06/11/19 Rx Insulin Aspart [Novolog] 0 unit SQ PRN PRN 06/11/19 06/11/19 History Insulin Degludec [Tresiba] 20 unit SQ BID 06/11/19 06/11/19 History - History PMHx: chronic a-fib, CHF, 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 Previous alcohol abuse. - Review of Systems ROS unobtainable: due to mental status (Pt confused the past few days.) Gastrointestinal: reports: constipation Neurological: reports: other (confused per family the past few days.). denies: syncope - Vital signs BP: 131/74 HR: 56 RR: 16 Tmax: 97.6 Pox: 100% on 2 L NC Wt: 90 kg - Physical Exam Constitutional: NAD -Constitutional: awake, alert. Oriented to person and place. HEENT: EOMI, conjunctiva clear, grossly normal vision, grossly normal hearing, MMM, oropharynx clear, other (dentures in place) -HEENT: pupils 2 mm, sluggish reactivity B. ecchymosis to head Neck: supple, trachea midline, no JVD -Neck: R subclavian line in place Chest: no-tender to palpation, no lesions Heart: RRR, pulses present, other (3/6 systolic murmur) Lungs: CTAB, no respiratory distress, good air movement, no rales/rhonchi, no wheezing, no retractions Abdomen: soft, non-tender, bowel sounds present, no masses/distention Musculoskeletal: normal structure, normal tone, ROM grossly normal Neurological: no focal deficit, CN II-XII intact, normal sensation Skin: no rash/lesions, capillary refill <2 seconds, other (jaundice skin, palmar erythema.) -Skin: BLE erythematous, waxy discoloration of skin. Heme/Lymphatic: no purpura Psychiatric: other (confused on date and year. Oriented to person, place and situation.) FMR H&P: Results - Labs Result Diagrams: 06/11/19 01:08 06/11/19 03:55 Lab results: WBC 5.8 thou/uL (4.8-10.8) 06/11/19 01:08 Hgb 13.0 g/dL (14.0-18.0) L 06/11/19 01:08 Hct 35.6 % (42.0-52.0) L 06/11/19 01:08 MCV 98.2 fL (78.0-98.0) H 06/11/19 01:08 Plt Count 151 thou/uL (130-400) 06/11/19 01:08 Band Neuts % (Manual) 1 % (5-11) L 06/11/19 01:08 ABG pH 7.46 (7.35-7.45) H 06/11/19 01:29 ABG pCO2 37.0 mmHg (35.0-45.0) 06/11/19 01:29 ABG pO2 74.8 mmHg (> 60.0) H 06/11/19 01:29 Sodium 136 mmol/L (136-145) 06/11/19 01:08 Potassium 2.7 mmol/L (3.5-5.1) L* 06/11/19 01:08 Chloride 100 mmol/L (98-107) 06/11/19 01:08 Carbon Dioxide 27 mmol/L (23-31) 06/11/19 01:08 BUN 22 mg/dL (8.4-25.7) 06/11/19 01:08 Creatinine 1.09 mg/dL (0.7-1.3) 06/11/19 01:08 Glucose 358 mg/dL (83-110) H 06/11/19 01:08 Lactic Acid 1.7 mmol/L (0.5-2.2) 06/11/19 01:08 Calcium 9.1 mg/dL (7.8-10.44) 06/11/19 01:08 Total Bilirubin 1.5 mg/dL (0.2-1.2) H 06/11/19 01:08 AST 46 U/L (5-34) H 06/11/19 01:08 ALT 95 U/L (8-55) H 06/11/19 01:08 Alkaline Phosphatase 224 U/L (40-110) H 06/11/19 01:08 Ammonia 161 umol/L (18-72) H 06/11/19 01:07 Creatine Kinase 47 U/L (30-200) 06/11/19 01:08 B-Natriuretic Peptide 51.0 pg/mL (0-100) 06/11/19 01:08 Serum Total Protein 6.8 g/dL (5.8-8.1) 06/11/19 01:08 Albumin 3.4 g/dL (3.4-4.8) 06/11/19 01:08 Urine Ketones Negative mg/dL (Negative) 06/11/19 01:16 Urine Blood Negative (Negative) 06/11/19 01:16 Urine Nitrite Negative (Negative) 06/11/19 01:16 Ur Leukocyte Esterase Negative Zoraida/uL (Negative) 06/11/19 01:16 - EKG Interpretation EK bpm, L axis deviation, u wave FMR H&P: A/P - Problem List (1) Cirrhosis of liver with ascites Current Visit: Yes Status: Chronic Code(s): K74.60 - UNSPECIFIED CIRRHOSIS OF LIVER; R18.8 - OTHER ASCITES Comment: suspecting from cardiac etiology vs nonalcoholic cirrhosis (2) Hepatic encephalopathy Current Visit: Yes Status: Acute Code(s): K72.90 - HEPATIC FAILURE, UNSPECIFIED WITHOUT COMA (3) Physical deconditioning Current Visit: Yes Status: Chronic Code(s): R53.81 - OTHER MALAISE (4) (HFpEF) heart failure with preserved ejection fraction Current Visit: Yes Status: Chronic Code(s): I50.30 - UNSPECIFIED DIASTOLIC ( CONGESTIVE) HEART FAILURE (5) Chronic a-fib Current Visit: Yes Status: Chronic Code(s): I48.2 - CHRONIC ATRIAL FIBRILLATION * DO NOT USE * Comment: rate controlled, on Xarelto (6) DM2 (diabetes mellitus, type 2) Current Visit: Yes Status: Chronic Qualifiers: Diabetes mellitus fpc insulin use: with fpc use Diabetes mellitus complication status: with circulatory complication Diabetes mellitus complication detail: with other circulatory complications Qualified Code(s): E11.59 - Type 2 diabetes mellitus with other circulatory complications; Z79.4 - FPC (current) use of insulin; Z79.4 - FPC (current) use of insulin; Z79.4 - exterminator termite (current) use of insulin; Z79.4 - FPC (current) use of insulin Comment: (7) HTN (hypertension) Current Visit: Yes Status: Chronic Code(s): I10 - ESSENTIAL (PRIMARY) HYPERTENSION Qualifiers: Hypertension type: essential hypertension Qualified Code(s): I10 - Essential (primary) hypertension (8) Hypothyroidism Current Visit: Yes Status: Chronic Code(s): E03.9 - HYPOTHYROIDISM, UNSPECIFIED (9) Obesity (BMI 30.0-34.9) Current Visit: Yes Status: Chronic Code(s): E66.9 - OBESITY, UNSPECIFIED (10) Hypokalemia Current Visit: Yes Status: Acute Code(s): E87.6 - HYPOKALEMIA (11) Accident due to mechanical fall without injury Current Visit: Yes Status: Acute Code(s): W19.XXXA - UNSPECIFIED FALL, INITIAL ENCOUNTER - Plan 84 y/o M admitted to tele inpt for hepatic encephalopathy and electrolyte disturbances. 1. Hepatic encephalopathy, with hyperammonemia - continue lactulose QID - goal BM 3-4 daily - Ammonia 161 2. Ground level mechanical fall, due to deconditioning and tripping. - trauma consulted from ED, no evidence of acute injury/fracture through imaging in the ED. - placed central line R subclavian, due to difficulty obtaining peripheral line. - stable injuries 3. Cirrhosis with ascites 2/2 CHF - continue home medications - hold torsemide due to hypokalemia 4. Hypokalemia - hold turosemide and metolazone - CMP daily - K replaced in ED 5. Bradycardia - EKG bradycardia with u wave. - continue to replace electrolytes - placed on continuous cardiac monitoring. 6. Hx of HFpEF - has lead to pt's cirrhosis - continue home medications 7. Hx of hypothyroidism - home synthroid 112 mcg daily 8. Hx of PE - on lovenox daily ppx 9. Insulin dependent DM II - poorly controlled - restarted home basal bolus insulin regimen. - Accuchecks ISMAELPatricia Code status: full code, discussed with pt and family next of kin diet: HH, CC dvt ppx: lovenox Dispo: stable, admit to tele inpt for lactulose and electrolyte replacement FMR H&P: Upper Level - Plan Date/Time: 06/11/19 0322 PCP: Nito HPI: This is a84 yo M brought in by EMS after a fall at home while he was walking to the restroom. His PMH includes HTN, HFpEF, pulmonary HTN, DM2, Hx of hypothyroidism, Cirrhosis, h/o pulmonary embolism. The fall was not witnessed but was heard by family members at home, LOC is denied, he did hit his head on the corner of a wall. He denies CP, SOB, or palpitations. He has been walking with a walker. He has had 5 admissions since 03/25/19, he has been having more and more frequent occurrences of altered mental status related increased ammonia levels. His son states he had 2-3 BM yesterday but it had been about 4 days before that since he had a bowel movement. None today. Last visit son spoke with palliative care about hospice, ultimately they decided to go home with home health PT/OT only. Son does want patient to be full code. REVIEW OF SYSTEMS: Gen: no fever, chills, or sweats Neuro: denies headache Eyes: no visual changes ENT: no hearing changes, no sore throat, no congestion Resp: denies cough, SOB Card: denies CP, palpitations GI: denies abd pain, N/V/D Skin: no rash, no erythema PHYSICAL EXAMINATION: General: NAD, alert and oriented x2 (not sure of season/year), 5 cm hemostatic lac on forehead HEENT: PERRLA, EOMI, normal sclera, oropharynx without erythema or exudate Neck: Supple. Full ROM. Heart/Cardiovascular System: RRR, Cap refill < 3 seconds, 2/6 systolic murmur Lungs/Respiratory System: CTA-B, no resp distress Abdomen/Gastro-Intestinal System: normal bowel sounds, nontender, non distended Extremities: Warm extremities. No cyanosis or edema Neuro: No gross deficits appreciated. Psychiatry: Awake, Alert and cooperative with exam Skin: no rashes, ulcers Musculoskeletal: Full ROM A/P: # Symptomatic Bradycardia, fall - EMS reports pulse in 20s while en route to hospital - Pulse in 60 during time in ED, U wave noted on EKG (can be related to bradycardia and hypokalemia), K 2.7, Mag 2.0 - Monitor on telemetry - Replete K - cleared by trauma after fall, central line placed by trauma team bc of difficulty obtaining IV access in ED # Metabolic Encephalopathy 2/2 Hyperammomemia - Ammonia 161 - Titrate lactulose to 3-4 BM qDay\ - rifaximin # Cirrhosis - INR pending # HFpEF not in exacerbation - Metolazone to be held unless wt >210 - Hold torsemide pending increased K - Daily wt # HTN, pHTN, DM2, - Home meds # Palliative care - See palliative note from stay 05/17 - Family appears to be considering options for home hospice, patient has been steadily declining, this is 5th admit since 03/25/19 and family expressed interest in not wanting to keep going back and forth from hospital Fluids: tko Code status:full PPx: scd Dispo: inpt, symptomatic bradycardia, metabolic encephalopathy
[2019-06-11] MEDS ORDERED: Dextrose 5% in Water 1,000 ML IV PRN (03:47)
[2019-06-11] MEDS ORDERED: Dextrose 50% Abboject 50 ML SYRINGE SLOW IVP PRN (03:47)
[2019-06-11] MEDS ORDERED: Polyethylene Glycol 3350 17 GM Packet PO PRN (03:52)
[2019-06-11] MEDS ORDERED: Senokot S 8.6-50 MG TAB PO PRN (03:52)
[2019-06-11] MEDS ORDERED: Metolazone 2.5 MG TAB PO SCH (04:00)
[2019-06-11 04:32] LABS: Prothrombin Time 13.3 SEC (12.0-14.7)
[2019-06-11 04:45] LABS: Troponin I 0.026 ng/mL (< 0.028)
[2019-06-11] MEDS: Levothyroxine Sodium 112 MCG TAB PO SCH (05:30)
[2019-06-11 06:18] LABS: Anion Gap 11 mmol/L (10-20); BUN (Urea Nitrogen) 20 mg/dL (8.4-25.7); Calc. Creatinine Clearance 73 mL/min (70-130); Calcium 8.7 mg/dL (7.8-10.44); Carbon Dioxide 26 mmol/L (23-31); Chloride 100 mmol/L (98-107); Estimated GFR-MDRD 68; Glucose 335 mg/dL (83-110); Sodium 134 mmol/L (136-145)
[2019-06-11 07:25] LABS: Troponin I 0.033 ng/mL (< 0.028)
[2019-06-11] MEDS: AcetaZOLAMIDE 250 MG TAB PO SCH ×2 (07:49→16:21)
[2019-06-11] MEDS: Spironolactone 25 MG TAB PO SCH ×2 (07:49→16:21)
[2019-06-11] MEDS: Insulin Regular 300 UNITS/3 ML VIAL SC SCH ×2 (07:50→16:21)
[2019-06-11] MEDS: Potassium Chloride 10 MEQ TAB PO SCH (07:50)
[2019-06-11] MEDS: Aspirin 81 mg Enteric Coated Tablet PO SCH (08:01)
[2019-06-11] MEDS: Enoxaparin Sodium 40 MG/0.4 ML SYRINGE SC SCH (08:01)
[2019-06-11] MEDS: Rifaximin 550 MG TAB PO SCH ×2 (08:02→20:32)
--- NOTE | 2019-06-11 08:08 | RAD ---
AP PELVIS: HISTORY: Trauma. FINDINGS: The pelvis appears intact. Femoral heads appear normally positioned and exhibit normal contour. IMPRESSION: No acute finding. POS: [facility]
--- NOTE | 2019-06-11 08:11 | RAD ---
PORTABLE CHEST: HISTORY: Trauma. Fall from standing. COMPARISON: 05/15/2019. FINDINGS: Cardiomegaly. Vascular congestion. Central line overlies the SVC. No focal infiltrate or consolida tion. No significant effusion. Osseous structures appear intact. IMPRESSION: Cardiomegaly and mild vascular congestion. POS: [facility]
[2019-06-11] MEDS ORDERED: Prevnar 13-Val Conj/PF 0.5 ML SYRINGE IM ONE (09:00)
[2019-06-11] MEDS ORDERED: Torsemide 20 MG TAB PO SCH (09:00)
[2019-06-11] MEDS ORDERED: FLU VACC TS2019-20(65YR UP)/PF 180 MCG/0.5 ML SYRINGE IM ONE (09:00)
--- NOTE | 2019-06-11 09:21 | CT ---
PRELIMINARY REPORT/[facility]/EMERGENCY AFTER HOURS PROCEDURE: EXAM: CT Cervical Spine Without Intravenous Contrast. CLINICAL HISTORY: M84 presents to ED by EMS after fall. Fell from standing, no mechanical cause and hit head on tile co rner, denies LOC. Pt on blood thinners, 6 months ago had 2 subdural hematomas, reports he has had mul tiple bleeds in the past. Initially Hr was 20, started pacing, went up to 60s, not being paced curren tly. EMS reported initial GCS was 8, AMS, has improved. Denies any pain or any difficulty breathing, has no complaints at this time. TECHNIQUE: Axial computed tomography images of the cervical spine without intravenous contrast. Sagittal and cor onal reformations performed. COMPARISON: None provided. FINDINGS: BONES: No findings of acute cervical spine fracture. T1 superior endplate compression deformity of uncertain acuity. Osteopenia. Spine degenerative changes resulting in varying degrees of central canal and neural foraminal stenosi s. Loss of cervical lordosis is most likely positional and/or degenerative, possibly due to muscle spasm . SOFT TISSUES: No prevertebral soft tissue swelling. No apical pneumothorax. MISCELLANEOUS: Atherosclerosis. IMPRESSION: 1. No findings of acute cervical spine fracture. 2. T1 superior endplate compression deformity of uncertain acuity. 3. Osteopenia. 4. Spine degenerative changes resulting in varying degrees of central canal and neural foraminal sten osis. 5. Loss of cervical lordosis is most likely positional and/or degenerative, possibly due to muscle sp asm. 6. Atherosclerosis. ELECTRONICALLY SIGNED BY: Landon Barton MD Jun 11, 2019 1:58:17 AM APPLICATION PROJECT LEADER This report is intended for review by the ordering physician only, in accordance of law. If you recei ve this report in error, please call [facility] at [phone]. FINAL REPORT EMERGENCY AFTER HOURS CT CERVICAL SPINE WITHOUT CONTRAST: FINDINGS/IMPRESSION: I agree with the findings and impression given in the preliminary report per [facility] physici an. 1. No evidence of acute osseous abnormality of the cervical spine. There are degenerative changes th roughout the cervical spine. 2. There is a compression fracture of the superior end plate of T1. This is of uncertain age and may be chronic. POS: [facility]
--- NOTE | 2019-06-11 09:23 | CT ---
PRELIMINARY REPORT/[facility]/EMERGENCY AFTER HOURS PROCEDURE: EXAM: CT Head Without Intravenous Contrast. CLINICAL HISTORY: MJenniffer presents to ED by EMS after fall. Fell from standing, no mechanical cause and hit head on tile co rner, denies LOC. Pt on blood thinners, 6 months ago had 2 subdural hematomas, reports he has had mul tiple bleeds in the past. Initially Hr was 20, started pacing, went up to 60s, not being paced curren tly. EMS reported initial GCS was 8, AMS, has improved. Denies any pain or any difficulty breathing, has no complaints at this time. TECHNIQUE: Axial computed tomography images of the head/brain without intravenous contrast. COMPARISON: None provided. FINDINGS: BRAIN: No acute intraparenchymal hemorrhage. No mass lesion. No CT evidence for acute territorial inf arct. No midline shift or extra-axial collection. Diffuse cerebral and cerebellar atrophy. There are subcortical and deep white matter hypodensities which are nonspecific but which statistical ly most likely reflect changes of chronic small vessel ischemic disease. ORBITS: The patient has undergone bilateral ocular lens replacement procedures. SINUSES AND MASTOIDS: Right sphenoid sinusitis. Mucous retention cyst in the anteroinferior right maxillary sinus. SOFT TISSUES: No significant facial or scalp soft tissue swelling evident. No radiopaque foreign body is seen. BONES: No acute skull fracture. MISCELLANEOUS: Atherosclerosis. IMPRESSION: 1. Diffuse cerebral and cerebellar atrophy. 2. There are subcortical and deep white matter hypodensities which are nonspecific but which statisti scottie most likely reflect changes of chronic small vessel ischemic disease. 3. Right sphenoid sinusitis. 4. Atherosclerosis. ELECTRONICALLY SIGNED BY: Landon Barton MD Jun 11, 2019 1:53:02 AM BI ANALYST This report is intended for review by the ordering physician only, in accordance of law. If you recei ve this report in error, please call [facility] at [phone]. FINAL REPORT EMERGENCY AFTER HOURS CT BRAIN: COMPARISON: 05/15/2019. FINDINGS/IMPRESSION: I agree with the findings and impression given in the preliminary report per [facility] physici an. Small vessel ischemic disease without acute intracranial abnormality. POS: [facility]
[2019-06-11] MEDS ORDERED: Potassium Chloride 20 MEQ TAB PO SCH ×2 (10:30→17:45)
[2019-06-11] MEDS: Insulin Glargine 30 UNITS in Pre-Filled Syringe 1 EACH SC SCH (11:14)
--- NOTE | 2019-06-11 12:21 | HP ---
I have examined the patient and discussed the case with Dr. Clementine Gomes. I agree with her assessment and plan. HISTORY OF PRESENT ILLNESS: Mr. Bell is an 84-year-old white male patient, who has a history of cirrhosis, heart failure, and hepatic encephalopathy. He was admitted after a fall at home, during which he struck his head. He appeared confused later to his family and was brought into the ER for further evaluation and workup. PHYSICAL EXAMINATION: GENERAL: On exam, his blood pressure is 130/70, his heart rate is 56, respirations are 16. His pulse ox on 2 L is 100%. GENERAL: He is still confused this morning. He knows he is at [facility], but feels he is in [place], [place], and does not know the date. Otherwise, he is alert. EAR, NOSE, AND THROAT: No erythema or exudate. Pupils are reactive to light. NECK: Supple. CARDIAC: Heart rhythm is regular with S4 gallop and a 2 to 3/6 systolic murmur. LUNGS: Breath sounds are diminished, but clear without rales or wheezes. ABDOMEN: Flat, soft without rebound. NEUROLOGIC: No focal deficits. LABORATORY DATA: CBC; white count is 5800, hemoglobin 13, hematocrit 35.6, with an MCV of 98. Blood gas on 28% O2; his pH is 7.46, pCO2 is 37, PO2 is 74.8. Chemistry; sodium 134, potassium is now 3 and it was 2.7 on admission. Chloride is 100, bicarb is 26, BUN is 20, creatinine is 1.05. Glucose levels were elevated above 300. He is a type 2 diabetic as well. ASSESSMENT: Hepatic encephalopathy. A brain CT was obtained in the ER. Impressions were diffuse cerebral and cerebellar atrophy, subcortical and deep white matter hyperdense, nonspecific, but it may reflect changes of chronic small-vessel ischemic disease. There was no evidence of subdural hematoma or intracranial bleed. PLAN: Mr. Bell will be admitted. We will start him on lactulose for his hepatic encephalopathy. We will reinstitute his nutrition. We will replace his potassium, which is quite low on admission. He was also noted on his ambulance ride up here to have a heart rate that dropped into the 20s that did require temporary pacing. He is now in sinus rhythm with heart rate up in the 60s, but we will consult Cardiology, given that he is 84 years old and maybe developing a tachy-yi syndrome. Job ID: [id number]
[2019-06-11] MEDS: HumaLOG 300 UNITS/3 ML VIAL SC PRN ×2 (13:42→20:33)
[2019-06-11] MEDS ORDERED: Insulin Regular 300 UNITS/3 ML VIAL SC SCH (17:00)
--- NOTE | 2019-06-12 | CON ---
DATE OF CONSULTATION: HISTORY OF PRESENT ILLNESS: Nahun Bell is an 84-year-old white male with history of chronic diastolic heart failure. He also has a history of chronic atrial fibrillation. He has been hospitalized multiple times with diastolic heart failure, requiring diuresis. He now is admitted after a fall at home. He states he remembers falling to the ground and remembers hitting his head. He was somewhat confused, and EMS was called. Apparently on the transport here, he developed heart rates in the 20s and transcutaneous pacemaker was applied for short period of time. There is no documentation of that. Potassium was 2.7, that was repleted. He has not had any significant bradycardia since being admitted here. PAST MEDICAL HISTORY: Chronic diastolic heart failure, chronic atrial fibrillation, history of ascites, diabetes mellitus, history of nonsustained ventricular tachycardia, hypertension, hyperlipidemia, and history of intracranial hemorrhage. MEDICATIONS: 1. Diamox 250 b.i.d. 2. Aspirin 81 daily. 3. Insulin. 4. Lactulose 60 mL q.i.d. 5. Levothyroxine 112 mcg daily. 6. Metolazone 5 mg p.r.n. 7. Spironolactone 25 b.i.d. 8. Torsemide 20 t.i.d. ALLERGIES: PENICILLIN. OPERATIONS: Thyroidectomy and cholecystectomy. SOCIAL HISTORY: He does not smoke or drink. REVIEW OF SYSTEMS: A 10-point review of systems unremarkable. PHYSICAL EXAMINATION: VITAL SIGNS: Blood pressure 126/60, pulse of 73 and irregularly irregular. HEENT: PERRL. There is an abrasion over his right eyebrow. NECK: Supple. CHEST: Clear. CARDIAC: S1 and S2 normal without any S3 or S4. There is a 2/6 systolic ejection murmur. ABDOMEN: Normal bowel sounds without tenderness. EXTREMITIES: Revealed 1+ pretibial edema. NEUROLOGIC: Grossly intact. SKIN: Warm and dry. LABORATORY DATA: EKG reveals atrial fibrillation with rate of 65 per minute, nonspecific interventricular conduction delay. Hemoglobin 13.0, hematocrit 35.6 , white count 5800, platelets 151,000. INR 1.0, pH 7.46, pCO2 of 37.0, pO2 of 74.8, glucose has been as high as 423. Troponin I 0.033. Sodium 134, potassium 3.0, chloride 107, carbon dioxide 26, BUN 20, creatinine 1.05. Admission potassium was 2.7. AST 46, ALT 95. TSH is normal. IMPRESSION: 1. Fall at home. From his history, it does not sound as if he had true syncope that he remembers falling and remembers hitting his head. He states he just lost his balance. 2. Questionable bradycardia while being transported to the hospital. Apparently , he had heart rates in the 20s and transcutaneous pacemaker was placed, however, there is no documentation of this. This occurred with potassium of 2.7. 3. Chronic atrial fibrillation, on no AV nereida suppressant drugs. 4. Chronic diastolic heart failure with multiple admissions. 5. Hypertension. 6. Hyperlipidemia. 7. History of intracranial hemorrhage, not an anticoagulation candidate. PLAN: The patient's head CT did not show any significant acute abnormalities. He will continue to be monitored and with the questionable episode of bradycardia, rhythm strips will be requested from the emergency room. Consideration may need to be given to monitor at home. Job ID: [id number] [id number]
[2019-06-12 04:55] LABS: #Eosinphils 1.3 thou/uL (0.0-0.7); #Lymphocytes 1.5 thou/uL (1.20-3.40); #Monocytes 0.3 thou/uL (0.11-0.59); #Neutrophils 3.8 thou/uL (1.40-6.50); %Basophils 0.7 % (0.0-1.0); %Eosinophils 19.1 % (0.0-10.0); %Lymphocytes 21.4 % (21.0-51.0); %Monocytes 4.7 % (0.0-10.0); %Neutrophils 54.1 % (42.0-75.0); Hemoglobin 13.5 g/dL (14.0-18.0); Mean Corpuscular HGB CONC 35.5 g/dL (32.0-36.0); Mean Corpuscular Volume 98.5 fL (78.0-98.0); Mean Platelet Volume 7.6 fL (7.4-10.4); Platelet Count 155 thou/uL (130-400); RBC Distribution Width 14.5 % (11.5-14.5); Red Blood Cell (RBC) Count 3.86 mill/uL (4.70-6.10)
[2019-06-12 05:28] LABS: ALT (SGPT) 120 U/L (8-55); AST (SGOT) 80 U/L (5-34); Albumin 3.4 g/dL (3.4-4.8); Alkaline Phosphatase 241 U/L (40-110); Anion Gap 11 mmol/L (10-20); BUN (Urea Nitrogen) 13 mg/dL (8.4-25.7); Calc. Creatinine Clearance 84 mL/min (70-130); Calcium 9.3 mg/dL (7.8-10.44); Carbon Dioxide 23 mmol/L (23-31); Chloride 108 mmol/L (98-107); Estimated GFR-MDRD 82; Globulin 3.5 g/dL (2.4-3.5); Glucose 252 mg/dL (83-110); Potassium 3.5 mmol/L (3.5-5.1); Protein, Total 6.9 g/dL (5.8-8.1); Sodium 138 mmol/L (136-145)
[2019-06-12] MEDS: Levothyroxine Sodium 112 MCG TAB PO SCH (05:28)
--- NOTE | 2019-06-12 06:20 | PDOC.FM ---
- Subjective Subjective: He is A&O x3 and he wants to go home this morning. He is sitting up on the side of the bed. He says he has physical therapy at home and all the help he needs. - Objective MAR Reviewed: Yes Vital Signs & Weight: Vital Signs (12 hours) Temp Pulse Resp BP Pulse Ox 06/12/19 03:55 97.4 F L 72 20 142/67 H 98 06/11/19 20:00 98.1 F 69 18 130/66 99 Weight Weight 92.805 kg I&O: 06/10/19 06/11/19 06/12/19 06:59 06:59 06:59 Intake Total 1280 Output Total 1040 Balance 240 Result Diagrams: 06/12/19 04:26 06/12/19 04:26 EKG Reviewed by me: Yes (afib 60-70s) Phys Exam - Physical Examination Constitutional: NAD HEENT: PERRLA, moist MMs Neck: no nodes, supple Respiratory: no wheezing, no rales, no rhonchi, clear to auscultation bilateral Holosystolic murmur with irregular rhythm Gastrointestinal: soft, non-tender, positive bowel sounds Musculoskeletal: no edema, pulses present Neurological: normal sensation Deviation from normal: flat affect Skin: no rash, normal turgor Dx/Plan (1) Hepatic encephalopathy Code(s): K72.90 - HEPATIC FAILURE, UNSPECIFIED WITHOUT COMA Status: Acute (2) Hypokalemia Code(s): E87.6 - HYPOKALEMIA Status: Acute (3) (HFpEF) heart failure with preserved ejection fraction Code(s): I50.30 - UNSPECIFIED DIASTOLIC (CONGESTIVE) HEART FAILURE Status: Chronic (4) Chronic a-fib Code(s): I48.2 - CHRONIC ATRIAL FIBRILLATION * DO NOT USE * Status: Chronic (5) DM2 (diabetes mellitus, type 2) Status: Chronic Qualifiers: 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: with marine oil terminal superintendent use Diabetes mellitus complication status: with circulatory complication Diabetes mellitus complication detail: with other circulatory complications Qualified Code(s): E11.59 - Type 2 diabetes mellitus with other circulatory complications; Z79.4 - shelter (current) use of insulin; Z79.4 - terminal manager (current) use of insulin; Z79.4 - terminal manager (current) use of insulin; Z79.4 - terminal manager (current) use of insulin (6) HTN (hypertension) Code(s): I10 - ESSENTIAL (PRIMARY) HYPERTENSION Status: Chronic Qualifiers: Hypertension type: essential hypertension Qualified Code(s): I10 - Essential (primary) hypertension (7) Hypothyroidism Code(s): E03.9 - HYPOTHYROIDISM, UNSPECIFIED Status: Chronic - Plan Plan: 84 y/o M admitted to tele inpt for hepatic encephalopathy and electrolyte disturbances. 1. Hepatic encephalopathy, with hyperammonemia Ammonia: 161 * Increase of lactulose till BM yesterday * Decreased after BM * Goal BM 3-4 daily 2. Ground level mechanical fall, due to deconditioning and tripping. Trauma consulted from ED, no evidence of acute injury/fracture through imaging in the ED. * Placed central line R subclavian, due to difficulty obtaining peripheral line. * Stable injuries 3. 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 Hypokalemia-Resolved K: 3.5 * Held turosemide and metolazone * Consider restarting today after increasing K * CMP daily * K replaced in ED, 80 given yesterday 5. Bradycardia- No episodes since admission EKG bradycardia with u wave. * Continue to replace electrolytes * Placed on continuous cardiac monitoring. 6. Hx of HFpEF * Continue home medications 7. Hx of hypothyroidism * Continue home synthroid: 112 mcg daily 8. Hx of PE * Lovenox daily ppx 9. Insulin dependent DM II- poorly controlled * Restarted home basal bolus insulin regimen. * Accuchecks QACHS Code status: Full Diet: HH, CC Lines: R subclavian, SL DVT PPx: Lovenox GI PPx: Pepcid PCP: Nito Dispo: Tele inpt, LOS >48H. Will d/c today.
[2019-06-12] MEDS: AcetaZOLAMIDE 250 MG TAB PO SCH ×2 (08:31→17:00)
[2019-06-12] MEDS: Insulin Regular 300 UNITS/3 ML VIAL SC SCH ×2 (08:31→17:04)
[2019-06-12] MEDS: Spironolactone 25 MG TAB PO SCH ×2 (08:31→17:00)
[2019-06-12] MEDS: Aspirin 81 mg Enteric Coated Tablet PO SCH (08:32)
[2019-06-12] MEDS: Potassium Chloride 10 MEQ TAB PO SCH (08:32)
[2019-06-12] MEDS: Enoxaparin Sodium 40 MG/0.4 ML SYRINGE SC SCH (08:33)
[2019-06-12] MEDS: Rifaximin 550 MG TAB PO SCH ×2 (08:33→20:51)
[2019-06-12] MEDS: Insulin Glargine 30 UNITS in Pre-Filled Syringe 1 EACH SC SCH (08:40)
[2019-06-12] MEDS ORDERED: Potassium Chloride 20 MEQ TAB PO SCH ×2 (08:45→15:29)
[2019-06-12] MEDS: HumaLOG 300 UNITS/3 ML VIAL SC PRN ×2 (11:18→20:56)
--- NOTE | 2019-06-12 11:52 | PRG ---
DATE OF SERVICE: 06/12/2019 Mr. Bell is resting quietly in bed, in no distress. He had several bowel movements yesterday, and this morning, he is much more lucid. He is nearing time for discharge. We are continuing to correct his potassium, which now is at 3.5. Giving the vast amount of diarrhea, this may drop a bit more. We will check it one more time before he is discharged. Job ID: [id number]
[2019-06-12 15:17] LABS: Potassium 3.7 mmol/L (3.5-5.1)
--- NOTE | 2019-06-12 18:35 | PRG ---
DATE OF SERVICE: 06/12/2019 SUBJECTIVE: Mr. Bell is much more awake and alert today. He is feeling somewhat better. OBJECTIVE: VITAL SIGNS: Blood pressure 130/70 and pulse is in the 60 to 70, it is irregular. LUNGS: Clear. CARDIAC: Irregularly irregular. ABDOMEN: Severely distended. EXTREMITIES: Only mild edema. ASSESSMENT: 1. Congestive heart failure, diastolic. 2. Cirrhosis. 3. Recent syncopal episode with possible bradycardia. 4. Hypokalemia, improved. PLAN: Continue to monitor. Reassess tomorrow. No changes today. Job ID: [id number]
[2019-06-13 05:07] LABS: #Eosinphils 1.7 thou/uL (0.0-0.7); #Lymphocytes 1.5 thou/uL (1.20-3.40); #Monocytes 0.4 thou/uL (0.11-0.59); #Neutrophils 3.5 thou/uL (1.40-6.50); %Basophils 0.6 % (0.0-1.0); %Eosinophils 23.4 % (0.0-10.0); %Lymphocytes 21.2 % (21.0-51.0); %Monocytes 5.5 % (0.0-10.0); %Neutrophils 49.4 % (42.0-75.0); Hemoglobin 12.6 g/dL (14.0-18.0); Mean Corpuscular HGB CONC 35.3 g/dL (32.0-36.0); Mean Corpuscular Volume 99.2 fL (78.0-98.0); Mean Platelet Volume 7.9 fL (7.4-10.4); Platelet Count 150 thou/uL (130-400); RBC Distribution Width 14.5 % (11.5-14.5); White Blood Cell (WBC) Count 7.1 thou/uL (4.8-10.8)
[2019-06-13 05:27] LABS: ALT (SGPT) 109 U/L (8-55); AST (SGOT) 59 U/L (5-34); Albumin 3.3 g/dL (3.4-4.8); Alkaline Phosphatase 231 U/L (40-110); Anion Gap 10 mmol/L (10-20); BUN (Urea Nitrogen) 11 mg/dL (8.4-25.7); Bilirubin, Total 1.8 mg/dL (0.2-1.2); Calc. Creatinine Clearance 81 mL/min (70-130); Calcium 9.4 mg/dL (7.8-10.44); Carbon Dioxide 22 mmol/L (23-31); Chloride 109 mmol/L (98-107); Estimated GFR-MDRD 79; Globulin 3.4 g/dL (2.4-3.5); Glucose 250 mg/dL (83-110); Protein, Total 6.7 g/dL (5.8-8.1); Sodium 137 mmol/L (136-145)
[2019-06-13] MEDS: Levothyroxine Sodium 112 MCG TAB PO SCH (05:59)
--- NOTE | 2019-06-13 06:31 | PDOC.FM ---
- Subjective Subjective: Patient is doing well today and is alert. He did well getting up. No complaints. - Objective MAR Reviewed: Yes Vital Signs & Weight: Vital Signs (12 hours) Temp Pulse Resp BP Pulse Ox 06/13/19 03:12 98.5 F 59 L 20 114/57 L 93 L 06/12/19 20:00 97.2 F L 66 16 124/60 100 06/12/19 19:40 100 Weight Weight 92.805 kg I&O: 06/11/19 06/12/19 06/13/19 06:59 06:59 06:59 Intake Total 1280 960 Output Total 1040 650 Balance 240 310 Result Diagrams: 06/13/19 04:37 06/13/19 04:37 EKG Reviewed by me: Yes (afib with a few beats in the 30s but non-sustained) Phys Exam - Physical Examination Constitutional: NAD HEENT: moist MMs, oral pharynx no lesions Neck: no nodes, supple Respiratory: no wheezing, no rales, no rhonchi, clear to auscultation bilateral irregular and severe holosystolic flow murmur Gastrointestinal: soft, non-tender, positive bowel sounds Musculoskeletal: no edema, pulses present Neurological: moves all 4 limbs Lymphatic: no nodes Psychiatric: normal affect Skin: no rash, normal turgor Dx/Plan (1) Hepatic encephalopathy Code(s): K72.90 - HEPATIC FAILURE, UNSPECIFIED WITHOUT COMA Status: Acute (2) Hypokalemia Code(s): E87.6 - HYPOKALEMIA Status: Acute (3) (HFpEF) heart failure with preserved ejection fraction Code(s): I50.30 - UNSPECIFIED DIASTOLIC (CONGESTIVE) HEART FAILURE Status: Chronic (4) Chronic a-fib Code(s): I48.2 - CHRONIC ATRIAL FIBRILLATION * DO NOT USE * Status: Chronic (5) DM2 (diabetes mellitus, type 2) Status: Chronic Qualifiers: 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: with residential use Diabetes mellitus complication status: with circulatory complication Diabetes mellitus complication detail: with other circulatory complications Qualified Code(s): E11.59 - Type 2 diabetes mellitus with other circulatory complications; Z79.4 - intermission coordinator (current) use of insulin; Z79.4 - intermission coordinator (current) use of insulin; Z79.4 - [facility] (current) use of insulin; Z79.4 - [facility] (current) use of insulin (6) HTN (hypertension) Code(s): I10 - ESSENTIAL (PRIMARY) HYPERTENSION Status: Chronic Qualifiers: Hypertension type: essential hypertension Qualified Code(s): I10 - Essential (primary) hypertension (7) Hypothyroidism Code(s): E03.9 - HYPOTHYROIDISM, UNSPECIFIED Status: Chronic - Plan Plan: 84 y/o M admitted to tele inpt for hepatic encephalopathy and electrolyte disturbances. 1. Hepatic encephalopathy, with hyperammonemia Ammonia: 161 * Currently on home regimen * Goal BM 3-4 daily 2. Ground level mechanical fall, due to deconditioning and tripping. Trauma consulted from ED, no evidence of acute injury/fracture through imaging in the ED. * Placed central line R subclavian, due to difficulty obtaining peripheral line. * Stable injuries 3. 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 Hypokalemia-Resolved K: 4.0 * Held turosemide and metolazone * Consider restarting today after increasing K * CMP daily * K replaced in ED, 80 given yesterday 5. Bradycardia- No episodes since admission EKG bradycardia with u wave. * Placed on continuous cardiac monitoring. * Cardiology consulted, appreciate recommendations. * They are going to have EP take a look and see if he would be eligible for a pacemaker at this time. 6. Hx of HFpEF * Continue home medications 7. Hx of hypothyroidism * Continue home synthroid: 112 mcg daily 8. Hx of PE * Lovenox daily ppx 9. Insulin dependent DM II- poorly controlled * Restarted home basal bolus insulin regimen. * Accuchecks QACHS Code status: Full Diet: HH, CC Lines: R subclavian, SL DVT PPx: Lovenox GI PPx: Pepcid PCP: Nito Dispo: Tele inpt, LOS >48H. Will await cardiology and EP recommendations.
[2019-06-13] MEDS: AcetaZOLAMIDE 250 MG TAB PO SCH (08:42)
[2019-06-13] MEDS: Spironolactone 25 MG TAB PO SCH (08:42)
[2019-06-13] MEDS: Aspirin 81 mg Enteric Coated Tablet PO SCH (08:43)
[2019-06-13] MEDS: Enoxaparin Sodium 40 MG/0.4 ML SYRINGE SC SCH (08:43)
[2019-06-13] MEDS: Rifaximin 550 MG TAB PO SCH (08:43)
[2019-06-13] MEDS: Insulin Regular 300 UNITS/3 ML VIAL SC SCH (08:43)
[2019-06-13] MEDS: Potassium Chloride 10 MEQ TAB PO SCH (08:43)
[2019-06-13] MEDS ORDERED: Insulin Glargine 40 UNITS in Pre-Filled Syringe 1 EACH SC SCH (09:00)
--- NOTE | 2019-06-13 09:52 | PRG ---
DATE OF SERVICE: 06/13/2019 SUBJECTIVE: Mr. Bell is much more awake and alert today, feels much better. OBJECTIVE: VITAL SIGNS: His heart rate is in the mid 50s, it is regular. LUNGS: Clear. CARDIAC: Regular. ABDOMEN: Ascites. EXTREMITIES: No edema. ASSESSMENT: 1. Chronic atrial fibrillation with some periods where it looks more regular, one of it could be having some degree of heart block with a junctional escape. 2. Diastolic heart failure. 3. Chronic atrial fibrillation. 4. Cirrhosis, cannot be anticoagulated due to cirrhosis. PLAN: We will ask Dr. Lerma to see the patient prior to being discharged to see if he thinks he could qualify for pacemaker or whether he need an outpatient monitor. Job ID: [id number]
--- NOTE | 2019-06-13 11:35 | PRG ---
DATE OF SERVICE: 06/13/2019 ADDENDUM: This is an addendum to the note of Dr. Toni Jurado. Mr. Bell is resting quietly, in no distress. He was seen in consultation by the Cardiology Service who recommended EP consult. We will await the results of the recommendations. In the event, his monitor has been normal. He is resting quietly this morning, in no distress. His potassium has been corrected to 4.0. Job ID: [id number]
[2019-06-13] MEDS: HumaLOG 300 UNITS/3 ML VIAL SC PRN (11:49)
--- NOTE | 2019-06-13 14:39 | CON ---
DATE OF CONSULTATION: 06/13/2019 ADDITIONAL REFERRING PHYSICIAN: Jimmy Leavitt MD REASON FOR CONSULTATION: I am seeing Mr. Bell at our [facility] as an electrophysiology [employer] consultant. His problems are: 1. One episode of a slip and fall. 2. Low pulse rate per EMS report, not well documented. a. Marked hypokalemia on admission. 3. Chronic atrial fibrillation, not on heart rate lowering agents. 4. Nonspecific interventricular conduction delay. 5. History of diastolic heart failure with preserved LVEF. a. 2D echo from 03/26/2019 demonstrates LVEF of 50% to 55%, severe left atrial enlargement, moderate right ventricular enlargement, moderate aortic stenosis, moderate TR, moderate pulmonary pressure elevation at 47 mmHg. 6. Liver cirrhosis. ALLERGIES: PENICILLINS. MEDICATIONS AT HOME: Included: 1. Diamox. 2. Ecotrin. 3. Lactulose. 4. Torsemide. 5. Levothyroxine. 6. Spironolactone. 7. Rifaximin. 8. Polyethylene glycol. 9. Metolazone. 10. Insulin. SUBJECTIVE: Mr. Bell is here after an episode of fall while walking at night at home. He did strike his head. He did not use his usual walker. He was somewhat confused to the family and was brought to the ER by EMS. In the EMS, his pulse was slow and he was transiently placed with a temporary pacer. On admission, though, his EKGs did not indicate severe bradycardia, heart rate 65 beats per minute. Subsequently, especially at nighttime, heart rate is in the 40s to 50s at times, continued atrial fibrillation. Some regularization of the heart rates are seen. He is currently feeling better, less confused, does not pass out. He denies prior passing-out spells. No stroke-like symptoms. No neurological deficits. No fever, chills, or cough. REVIEW OF SYSTEMS: Rest of 12-point system otherwise unremarkable. PAST MEDICAL HISTORY: As above, includes: 1. Type 2 diabetes. 2. Hypertension. 3. Hypothyroidism. 4. Obesity. 5. Some liver cirrhosis. 6. Ascites. 7. Hepatic encephalopathy. 8. Physical deconditioning. SOCIAL HISTORY: Lives at home with family. Prior history of alcohol abuse. PAST SURGICAL HISTORY: Significant for: 1. Cholecystectomy. 2. Thyroidectomy. 3. Right knee replacement. OBJECTIVE DATA: VITAL SIGNS: Blood pressure currently 160/74, heart rate 70, respirations 18, and temperature 98.4 degrees Fahrenheit. On admission, blood pressure was 150/69. GENERAL: This is an elderly, somewhat frail man, in no apparent distress. NECK: Supple. Jugular veins slightly distended. CHEST: Coarse without crackles. HEART: Irregularly irregular. A 1/6 systolic ejection murmur is heard. ABDOMEN: Benign. Bowel sounds positive. EXTREMITIES: Lower extremities without edema, clubbing, or cyanosis. Pulses are adequate. NEUROLOGIC: The patient is nonfocal. MUSCULOSKELETAL: Without joint swelling or deformities. SKIN: Without rash. DATABASE: EKG is reviewed, revealing atrial fibrillation with rate of 65 beats per minute, some widened QRS at 134 milliseconds with nonspecific interventricular conduction delay is seen. Subsequent telemetry strips reveal heart rates in the 50s, short episodes of 40s at night are noted. LABORATORY DATA: White cell count is 7.1, hemoglobin 12.6, and platelet count is 150. INR is 1.0. Initial blood gas: A pH 7.46, pCO2 of 37, PO2 of 74.8. Sodium 137, potassium 4, BUN is 11, creatinine 0.92. AST and ALT are 59 and 109. Cardiac enzymes, 0.02 to 0.03 range. TSH was 2.8. The potassium level initially 2.7 on admission. Chest x-ray from 06/11/2019 showed cardiomegaly and mild vascular congestion. ASSESSMENT AND PLAN: Mr. Bell is an 84-year-old elderly man with multiple morbidities, which include liver cirrhosis, possibly alcoholic liver disease, history of diastolic heart failure, which is improving related to a significant weight loss according to the family. He is presenting after a mechanical fall, and by his recollection, he denies syncopal spell, but on EMS, bradycardia was noted in the 20s, requiring temporary pacemaker placement. No rhythm strips available from this. Later in the hospital, his heart rates were not as depressed. He was also markedly hypokalemic on admission, which has now normalized. His heart rates now seems to be reasonable. I discussed these issues with him. Clearly, he could have been bradycardic at the time of event, which could make his balance worse or possibly even syncopal spell, currently ruled out. Hence, his mental status was poor. On the other hand, no hard evidence of true bradycardia is present at this point, even if bradycardia was present prior to admission, this might have been mitigated by the marked low potassium levels. I discussed the potential utility of pacemaker implantation for him. The patient would like to wait on that. He would like to be discharged if possible. I think it would be beneficial for him to undergo some longer-term monitoring while at home. Clearly, his potassium levels need to be kept in normal range, and I would avoid any AV nereida heart rate lowering agents at this time. I have to see him back after the event monitor is complete to reassess him for pacemaker implantation. Thank you for letting me for participate in the care of this patient. Job ID: [id number]
[2019-06-13 15:59] VITALS: BP 120/61; TEMP 97.8
--- NOTE | 2019-06-14 06:26 | PQF ---
BREE LONG IRVIN [id number] CLINICAL DOCUMENTATION CLARIFICATION FORM: POST DISCHARGE Addendum to original discharge summary date: ____ Late entry note date: _5-44-06 DATE: 06/14/2019 ATTN: Jimmy Lopez Please exercise your independent, professional judgment in responding to the clarification form. Clinical indicators are provided on the bottom of this form for your review Please check appropriate box(s): [ ] Acute Hepatic Ecenphalopathy [ ] Chronic Hepatic Encephalopathy [ ] Acute Alcoholic Hepatic Encephalopathy [ ] Other diagnosis [ ] Unable to determine In addition, please specify: Present on Admission (POA): [ ] Yes [ ] No [ ] Unable to determine For continuity of documentation, please document condition throughout progress notes and discharge summary. Thank You. CLINICAL INDICATORS - SIGNS / SYMPTOMS / LABS Consult p1 06/11 Dr. Castellanos - hepatic encephalopathy Laboratory 06/11 Ammonia 161, Potassium 2.7 Vital signs 06/11 BP 130/70, heart rate 56, Resp 16 H&P p1 06/11 Dr Otero He appeared confused later to his family and was brought into the ER Family PN p3 06/12 Dr Jurado admitted to [facility] in for hepatic encephalopathy and electrolytes disturbances Consult p3 06/13 Dr Lerma multiple morbidities which includes liver cirrhosis, possibly alcoholic liver disease HP p1 06/12 Dr. Gomes confused on date and year HP p7 06/12 Dr. Gomes altered mental status related to increase ammonia level RISK FACTORS H&P p1 05/11 84 year old male H&P p1 05/11 Cirrhosis H&P p1 05/11 CHF H&P p1 05/11 hypokalemia H&P p1 05/11 history of Hepatic Encephalopathy H&P p1 05/11 Bradycardia HP p6 06/12 s/p fall TREATMENTS: JUN 24 Lactulose 60mg po JUN 24 Mannitol 12.5gm JUN 24 Synthroid 112mcg po JUN 24 Kdur 40meq Respiratory panel 06/11 Oxgen 2L Cardiology consult 06/11 Smooth Yu JUN 24 - IVF (This form is maintained as a part of the permanent medical record) 2014 [employer]. All Rights Reserved [email or web address] [email or web address]
--- NOTE | 2019-06-14 13:43 | DIS ---
DATE OF ADMISSION: 06/11/2019 DATE OF DISCHARGE: 06/13/2019 RESIDENT: Toni Jurado MD ADMITTING ATTENDING: Dr. Jimmy Leavitt. DISCHARGE ATTENDING: Dr. Jimmy Leavitt. CONSULTATIONS: Cardiology, Dr. Herndon. We will send the patient home with Holter monitor to assess for abnormal rhythm. Electrophysiology, Dr. Lerma, discussed the potential of pacemaker placement, but patient would like to wait. He thinks he feels like there is need for long-term monitoring at home and his potassium level needs to be kept in normal range. He will avoid any AV nereida heart rate lowering agents as well. He will see him after the event monitor is complete to reassess for pacemaker replacement. PROCEDURES: Brain CT from 06/11, diffuse cerebral and cerebellar atrophy, subcortical and deep white matter hypodensities, nonspecific, but reflect changes of chronic small vessel ischemic disease. Right sphenoid sinusitis, atherosclerosis. Pelvis x-ray, 06/11, pelvis appears intact. Femoral head appears in normal position and exhibit normal contour. No acute finding. Cervical spine CT, 06/11, T1 superior endplate compression deformity of uncertain acuity. Osteopenia of spine, degenerative changes resulting in 30 degrees of central canal and neuroforaminal stenosis. Loss of cervical lordosis is likely positional and degenerative, possibly due to muscle spasm and atherosclerosis. Chest x-ray on 06/11, cardiomegaly and mild vascular congestion, right subclavian central venous catheter placed on 06/[address] Terrell Castellanos. PRIMARY DIAGNOSES: 1. Hepatic encephalopathy with hyperammonemia. 2. Ground level mechanical fall due to deconditioning and tripping. 3. Cirrhosis with ascites secondary to congestive heart failure. 4. Hypokalemia. 5. Bradycardia. SECONDARY DIAGNOSES: 1. History of heart failure with preserved ejection fraction. 2. History of hyperthyroidism. 3. History of pulmonary embolism. 4. Insulin-dependent diabetes type 2. DISCHARGE MEDICATIONS: Potassium chloride changed from 10 mEq daily to 20 mEq p.o. b.i.d. Continued home medications; torsemide 20 mg p.o. b.i.d., spironolactone 25 mg p.o. b.i.d., rifaximin 550 mg p.o. b.i.d., polyethylene glycol 17 g p.o. daily, metolazone 5 mg p.o., levothyroxine 112 mcg p.o. daily, lactulose 60 g p.o. q.i.d., Tresiba 20 units b.i.d., NovoLog p.r.n., aspirin 81 mg, Diamox 250 mg b.i.d. Discontinued medications; mannitol and Lovenox. HISTORY OF PRESENT ILLNESS: The patient is an 84-year-old male with a past medical history of cirrhosis, CHF, and hepatic encephalopathy, who presents to the ED after a fall this evening on the way to the bathroom and hit his head. The patient states he tripped. Denies loss of consciousness, nausea, and vomiting. The patient has been more confused lately with recent constipation. He has had several bowel movements yesterday, but none for 4 days before. The patient denies any pain at this time. The patient's family called and confirms the patient's story of tripping and falling. In the ED, a right subclavian vein was placed. TSH was 3.82. BNP is 51, CK of 47, bilirubin of 1.5, troponin of 0.02. Lactic acid 1.7. Ammonia 161 and potassium 2.7. Potassium replaced. Trauma was consulted for the procedure. ASSESSMENT AND PLAN: 1. Hepatic encephalopathy. Ammonia 161. The patient achieved multiple bowel movements and mental status improved. 2. Ground level mechanical fall due to deconditioning and tripping, stable injuries. Imaging as noted above. 3. Cirrhosis with ascites secondary to congestive heart failure. Continue home medications. Torsemide and metolazone were held due to hyperkalemia, but were restarted before discharge with a higher dose of potassium to compensate. 4. Hyperkalemia, resolved. Potassium was 4 upon discharge. Sent home with 20 mEq b.i.d. 5. Bradycardia. No episodes since admission. Initial EKG shows bradycardia. A Holter monitor was placed on the patient after Cardiology was consulted, recs as above. EP was consulted, recs as above. 6. History of heart failure. Continue home medications. 7. History of hypothyroidism. Continue home Synthroid. 8. History of pulmonary embolism. Lovenox daily during hospitalization. 9. Lcg-rgddtai-ursopaghp diabetes type 2. Continue home insulin regimen. DISCHARGE INSTRUCTIONS: Location: Home. Disposition: Stable. Diet: Diabetic, heart healthy, low-sodium. Activity: As tolerated. Follow up with Dr. Beauchamp in 7 days, Dr. Herndon in 3 to 4 weeks. Job ID: [id number]
== END 2019-06-13 17:10 | disposition home or self-care (01) | DRG 442 ==
LOC: ERS 00:38 → 2NO 03:11
PROVIDERS: ADMIT Family Medicine; ATTEND Family Medicine
PROC: 02HV33Z Insertion of Infusion Device into Superior Vena Cava, Percutaneous Approach (ICD-10-PCS; principal; 2019-06-11)
DX: K72.90 Hepatic failure, unspecified without coma (principal); I50.32 Chronic diastolic (congestive) heart failure; I48.20 Chronic atrial fibrillation, unspecified; R18.8 Other ascites; I11.0 Hypertensive heart disease with heart failure; E87.6 Hypokalemia; E11.9 Type 2 diabetes mellitus without complications; K74.60 Unspecified cirrhosis of liver; E89.0 Postprocedural hypothyroidism; Z96.651 Presence of right artificial knee joint; R00.1 Bradycardia, unspecified; E78.5 Hyperlipidemia, unspecified; Z28.21 Immunization not carried out because of patient refusal; Z79.899 Other long term (current) drug therapy; Z79.82 Long term (current) use of aspirin; Z88.0 Allergy status to penicillin; Z79.890 Hormone replacement therapy; Z79.4 Long term (current) use of insulin; Z86.711 Personal history of pulmonary embolism; Z90.49 Acquired absence of other specified parts of digestive tract
CPT/HCPCS: 36415; 36416; 70450; 71045; 72125; 72170; 80053; 81003; 82140; 82550; 82805; 83605; 83735; 83880; 84443; 84484; 85025; 85610; 87086; 90471; 90670; 93005; G0009; G0390; J1650; J1815; J2001; J2150; J3475; J3480; J7050

== ENCOUNTER 2020-01-28 15:58 | Inpatient (IN) | payer MEDICARE, BC ==
[2020-01-28] MEDS ORDERED: Nitroglycerin 2% Ointment 1 INCH/1 GM Packet ONE (17:26)
--- NOTE | 2020-01-28 17:45 | RAD ---
Exam: Chest one view HISTORY:Dyspnea Comparison: 06/11/2019 FINDINGS: Cardiac silhouette:Cardiomegaly Aorta: Atherosclerosis Pulmonary vessels: Normal Costophrenic angles: Clear LUNGS: Scattered interstitial and alveolar opacities. Pneumothorax: None Osseous abnormalities: Diffuse bony mineralization. Remote right rib fractures. IMPRESSION: Congestive heart failure. Atherosclerosis.
[2020-01-28 17:57] LABS: #Eosinphils 1.3 thou/uL (0.0-0.7); #Monocytes 0.3 thou/uL (0.11-0.59); #Neutrophils 3.7 thou/uL (1.40-6.50); %Basophils 0.8 % (0.0-1.0); %Eosinophils 20.1 % (0.0-10.0); %Lymphocytes 15.5 % (21.0-51.0); %Monocytes 4.8 % (0.0-10.0); Hemoglobin 11.4 g/dL (14.0-18.0); Mean Corpuscular HGB CONC 33.1 g/dL (32.0-36.0); Mean Corpuscular Hemoglobin 34.1 pg (27.0-31.0); Mean Platelet Volume 6.9 fL (7.4-10.4); Platelet Count 192 thou/uL (130-400); RBC Distribution Width 15.4 % (11.5-14.5); Red Blood Cell (RBC) Count 3.35 mill/uL (4.70-6.10); White Blood Cell (WBC) Count 6.3 thou/uL (4.8-10.8)
[2020-01-28] MEDS ORDERED: Furosemide 40 MG/4 ML VIAL ONE (18:25)
[2020-01-28 18:32] LABS: ALT (SGPT) 21 U/L (8-55); AST (SGOT) 28 U/L (5-34); Albumin 3.4 g/dL (3.4-4.8); Alkaline Phosphatase 239 U/L (40-110); Anion Gap 10 mmol/L (10-20); BUN (Urea Nitrogen) 11 mg/dL (8.4-25.7); Bilirubin, Total 1.7 mg/dL (0.2-1.2); Calc. Creatinine Clearance 0 mL/min (70-130); Calcium 9.5 mg/dL (7.8-10.44); Carbon Dioxide 31 mmol/L (23-31); Chloride 99 mmol/L (98-107); Estimated GFR-MDRD 71; Glucose 182 mg/dL (83-110); Potassium 3.5 mmol/L (3.5-5.1); Protein, Total 7.4 g/dL (5.8-8.1); Sodium 136 mmol/L (136-145)
--- NOTE | 2020-01-28 23:08 | PDOC.FPRHP ---
- History of Present Illness Chief Complaint: swelling b/l LE History of Present Illness: Pt is a 84yo M with a PMH of diastolic HFpEF, cirrhosis, HTN, diabetes, LEONARDO, chronic Afib, pulm HTN, hypothyroidism 2/2 thyrdoidectomy who presents with worsening b/l LE edema for the last couple of days. He states his legs are swo llen at baseline but it has gotten increasingly worse overnight. He denies any other symptoms other than a decreased appetite. Denies ZAZUETA, changes in vision, CP, SOB, scrotal swelling, abdominal pain, decreased urine output, changes in stool. He notes medication compliance for the most part, but occasionally "does not take his meds on road trips so he doesn't have to pee too much." Follows up regularly with Dr. Herndon, Cardiology. Of note, patient endorses a recent R humerus fx that is non operable. ED Course: 80 IV lasix and nitro in ED - Allergies/Adverse Reactions Allergies Allergy/AdvReac Type Severity Reaction Status Date / Time Penicillins Allergy Hives Verified 07/16/19 01:12 - Home Medications Medication Instructions Recorded Confirmed Type Aspirin [Ecotrin Low Strength] 81 mg PO DAILY 05/16/19 01/28/20 History Lactulose 10 GM/15ML Oral Jenna 60 g PO QID 05/16/19 01/28/20 History [Lactulose] Levothyroxine Sodium [Synthroid] 112 mcg PO DAILY 05/16/19 01/28/20 History Rifaximin [Xifaxan] 550 mg PO BID 05/16/19 01/28/20 History Spironolactone 25 mg PO BID-AC 05/16/19 01/28/20 History Torsemide 20 mg PO TID 05/16/19 01/28/20 History Metolazone 5 mg PO ASDIR #14 tab 05/18/19 01/28/20 Rx Insulin Aspart [Novolog] 0 unit SQ PRN PRN 06/11/19 01/28/20 History Insulin Degludec [Tresiba] 20 unit SQ BID 06/11/19 01/28/20 History Potassium Chloride [Klor-Con 10] 20 meq PO BID 30 Days #30 tab 06/12/19 01/28/20 Rx - History PMHx: diastolic HFpEF, cirrhosis, HTN, diabetes, LEONARDO, chronic Afib, pulm HTN, hypothyroidism 2/2 thyrdoidectomy PSHx: cholecystectomy, thyroidectomy, parathyroidectomy, knee replacement FHx: unknown Social: denies alcohol or drug use. previous tobacco use 1ppd for 20 years - Review of Systems General: denies: fever/chills, weight/appetite/sleep changes Eyes: denies: vision changes Respiratory: denies: cough, congestion, shortness of breath Cardiovascular: reports: edema. denies: chest pain, palpitation Gastrointestinal: denies: nausea, vomiting, diarrhea, abdominal pain, GI bleeding Skin: denies: lesions, jaundice Musculoskeletal: reports: swelling Neurological: denies: numbness, syncope - Vital signs BP: 174/81 HR: 84 RR: 20 Tmax: 98.6 Pox: 97% on RA Wt: 112.94kg - Physical Exam Constitutional: NAD, awake, alert and oriented HEENT: normocephalic and atraumatic, EOMI, conjunctiva clear, no scleral icterus Neck: supple, FROM Heart: RRR, normal S1/S2 -Heart: 2+ pitting edema b/l up to knee Lungs: CTAB, no respiratory distress Abdomen: soft Musculoskeletal: normal tone, ROM grossly normal Neurological: no focal deficit Skin: good turgor -Skin: venous stasis b/l LE. possibly increased redness on left LE Heme/Lymphatic: no unusual bruising or bleeding Psychiatric: normal mood and affect, good judgment and insight FMR H&P: Results - Labs Result Diagrams: 01/29/20 04:10 01/29/20 13:53 Lab results: WBC 6.3 thou/uL (4.8-10.8) 01/28/20 17:42 Hgb 11.4 g/dL (14.0-18.0) L 01/28/20 17:42 Hct 34.5 % (42.0-52.0) L 01/28/20 17:42 MCV 103.0 fL (78.0-98.0) H 01/28/20 17:42 Plt Count 192 thou/uL (130-400) 01/28/20 17:42 Neutrophils % 59.0 % (42.0-75.0) 01/28/20 17:42 Sodium 136 mmol/L (136-145) 01/28/20 17:42 Potassium 3.5 mmol/L (3.5-5.1) 01/28/20 17:42 Chloride 99 mmol/L (98-107) 01/28/20 17:42 Carbon Dioxide 31 mmol/L (23-31) 01/28/20 17:42 BUN 11 mg/dL (8.4-25.7) 01/28/20 17:42 Creatinine 1.01 mg/dL (0.7-1.3) 01/28/20 17:42 Glucose 182 mg/dL (83-110) H 01/28/20 17:42 Calcium 9.5 mg/dL (7.8-10.44) 01/28/20 17:42 Total Bilirubin 1.7 mg/dL (0.2-1.2) H 01/28/20 17:42 AST 28 U/L (5-34) 01/28/20 17:42 ALT 21 U/L (8-55) 01/28/20 17:42 Alkaline Phosphatase 239 U/L (40-110) H 01/28/20 17:42 B-Natriuretic Peptide 33.8 pg/mL (0-100) 01/28/20 17:42 Serum Total Protein 7.4 g/dL (5.8-8.1) 01/28/20 17:42 Albumin 3.4 g/dL (3.4-4.8) 01/28/20 17:42 - EKG Interpretation EKG: sinus rhythm, non specific T waves, left axis deviation FMR H&P: A/P - Plan 1. Edema likely 2/2 CHF exacerbation -hx of HFrEF, unknown last echo date -as per ED report, patient had 2-3+ pitting edema to his mid thigh and crackles b/l on auscultation -80 mg IV Lasix given in ED and upon my exam only PE finding was 2+ pitting edema up to knees -BNP WNL -patient on home Torsemide, states compliance, will restart home meds in the AM. Consider more IV Lasix given clinical picture but be cautious as patient is preload dependent given diastolic HF -strict I/Os, continue to monitor fluid status 2. Cirrhosis -aware, continue home meds -Tbili near baseline 3. HTN -aware, continue home meds 4. DM 2 -aware, continue home meds 5. Hypothyroidism -aware, continue home meds 6. R Humerus Fracture -aware, non operable Dispo: admit to inpatient tele. Anticipated LOS >48 hours Diet: HH Low sodium DVT ppx: Lovenox Fluids: KVO Code: FULL FMR H&P: Upper Level - Plan Date/Time: 01/28/20 3980 IRolando DO, have evaluated this patient and agree with findings/plan as outlined by legal summer intern resident. Pertinent changes/additions are listed here. 84 yo M w/ hx of HFpEF and cardiac cirrhosis presents for worsening LE edema and anasarca He report his swelling has been worse for the past few days, denies any change in fluid intake or meds to have caused this. His son reports giving him an extra diuretic this morning without any increase in uop. He denies any chest pain, SOB, or palpitation. He reports he has regular fu with Dr. Herndon. On exam he zazueta s 2/5 JEFE and diminished breath sounds throughout, fluid wave present, abd nttp. LE with 2+ pitting edema, erythema over L leg with increased warmth. Tbili is elevated, trop/bnp wnl. elevated BP, normal pulse. CXR sig for cardiomegaly, c/w EKG, no ST changes. He was given nitro and lasix in ED. HFpEF exacerbation, cautiously diurese to preserve preload, pt was having significant uop on our exam will hold off on additional dose of diuretic at this point, continue home meds, strict IOs. Consider cards consult if not continuing to improve. Cardiac cirrhosis: AOx3 on exam, Tbili near baseline, do not suspect hyperammonemia, continue home meds and monitor. Regarding his LE: I suspect stasis dermatitis and resolution with diuresis, monitor for fever or worsening and consider abx at that point. Will admit to tele obs for ELOS<48hrs. Addendum - Attending - Attending Attestation Date/Time: 01/29/20 8017 I personally evaluated the patient and discussed the management with Dr. Jennings last night at time of admission. I agree with the History, Examination, Assessment and Plan documented above with any addition or exceptions noted below.
[2020-01-28] MEDS ORDERED: Acetaminophen 325 MG TAB PO PRN (23:30)
[2020-01-29] MEDS ORDERED: Ondansetron ODT 4 MG TAB PO PRN (00:31)
[2020-01-29] MEDS ORDERED: Senokot S 8.6-50 MG TAB PO PRN (00:31)
[2020-01-29] MEDS ORDERED: Ondansetron PF 4 MG/2 ML Vial IVP PRN (00:31)
[2020-01-29 04:37] LABS: #Eosinphils 1.3 thou/uL (0.0-0.7); #Lymphocytes 1.1 thou/uL (1.20-3.40); #Monocytes 0.3 thou/uL (0.11-0.59); #Neutrophils 3.3 thou/uL (1.40-6.50); %Basophils 0.8 % (0.0-1.0); %Lymphocytes 18.3 % (21.0-51.0); %Monocytes 4.2 % (0.0-10.0); %Neutrophils 55.8 % (42.0-75.0); Mean Corpuscular HGB CONC 33.8 g/dL (32.0-36.0); Mean Corpuscular Hemoglobin 34.8 pg (27.0-31.0); Platelet Count 192 thou/uL (130-400); RBC Distribution Width 15.3 % (11.5-14.5); Red Blood Cell (RBC) Count 3.15 mill/uL (4.70-6.10)
[2020-01-29 05:03] LABS: ALT (SGPT) 18 U/L (8-55); AST (SGOT) 23 U/L (5-34); Albumin 3.1 g/dL (3.4-4.8); Alkaline Phosphatase 215 U/L (40-110); Anion Gap 13 mmol/L (10-20); BUN (Urea Nitrogen) 11 mg/dL (8.4-25.7); Bilirubin, Total 1.6 mg/dL (0.2-1.2); Calc. Creatinine Clearance 89 mL/min (70-130); Calcium 9.2 mg/dL (7.8-10.44); Carbon Dioxide 29 mmol/L (23-31); Chloride 96 mmol/L (98-107); Estimated GFR-MDRD 69; Globulin 3.8 g/dL (2.4-3.5); Glucose 278 mg/dL (83-110); Potassium 3.4 mmol/L (3.5-5.1); Protein, Total 6.9 g/dL (5.8-8.1); Sodium 135 mmol/L (136-145)
[2020-01-29] MEDS: Levothyroxine Sodium 112 MCG TAB PO SCH (05:22)
--- NOTE | 2020-01-29 05:44 | PDOC.FM ---
- Subjective Subjective: Patient was resting comfortably in bed with his son present at the time of evaluation. Patient denied any acute overnight events, to include chest pain or SOB. Per the patient's son, the LE edema has greatly reduced since admission on 01/27. - Objective Vital Signs & Weight: Vital Signs (12 hours) Temp Pulse Resp BP Pulse Ox 01/29/20 03:27 98.1 F 71 12 142/81 H 98 01/28/20 23:33 98.6 F 78 20 177/85 H 97 Weight Weight 107.456 kg Result Diagrams: 01/29/20 04:10 01/29/20 04:10 Phys Exam - Physical Examination Constitutional: NAD HEENT: moist MMs, oral pharynx no lesions Neck: no JVD, supple, full ROM Respiratory: no wheezing, no rales, no rhonchi, clear to auscultation bilateral Cardiovascular: RRR, no rub 3/6 Systolic Murmur heard diffusely throughout precordium Gastrointestinal: soft, non-tender, no distention, positive bowel sounds Musculoskeletal: pulses present +2 Pitting Edema bilaterally to knee, +1 Pitting Edema on Left Thigh Neurological: non-focal, moves all 4 limbs Psychiatric: normal affect Dx/Plan (1) CHF exacerbation Code(s): I50.9 - HEART FAILURE, UNSPECIFIED Status: Acute (2) Liver cirrhosis Code(s): K74.60 - UNSPECIFIED CIRRHOSIS OF LIVER Status: Acute (3) (HFpEF) heart failure with preserved ejection fraction Code(s): I50.30 - UNSPECIFIED DIASTOLIC (CONGESTIVE) HEART FAILURE Status: Chronic (4) Chronic a-fib Code(s): I48.2 - CHRONIC ATRIAL FIBRILLATION * DO NOT USE * Status: Chronic (5) DM2 (diabetes mellitus, type 2) Status: Chronic Qualifiers: Diabetes mellitus halfway insulin use: with halfway use Diabetes mellitus complication status: with circulatory complication Diabetes mellitus complication detail: with other circulatory complications Qualified Code(s): E11.59 - Type 2 diabetes mellitus with other circulatory complications; Z79.4 - exterminator termite (current) use of insulin; Z79.4 - FDC (current) use of insulin; Z79.4 - FDC (current) use of insulin; Z79.4 - FDC (current) use of insulin (6) HTN (hypertension) Code(s): I10 - ESSENTIAL (PRIMARY) HYPERTENSION Status: Chronic Qualifiers: Hypertension type: essential hypertension Qualified Code(s): I10 - Stef crowley (primary) hypertension - Plan Plan: Patient is an 84 y/o male with a PMH significant for HFpEF, Cirrhosis, HTN, and DM2 who presents to the hospital for evaluation of worsening LE edema. 1. LE Edema, likely 2/2 CHF Exacerbation -Patient is followed locally by Dr. Herndon (Cardiology) -Patient's son thinks that the patient has gained ~10 LBS over the past 1-2W, but admits the he has missed several doses of his medication regimen -Per report, patient received an extra dose of Torsemide at home from his son and was administered Lasix 80 mg IV in the ED - profuse diuresis noted -Physical Exam in ED notable for +2 Pitting Edema bilaterally with scant crackles on Respiratory Exam - no need for supplemental O2 documented -Echo (04/12): EF (50-55%), A-Fib, severe Left Atrium dilation - will consider repeat -Trop: 0.015 -BNP: 33.8 -Will plan to restart patient's home medication regimen and begin gentle diuresis in order to avoid severe pre-load disruption -Strict I/O 2. Cirrhosis -TBili: 1.6 - appears near baseline -No evidence of Metabolic Encephalopathy 3. HTN -BP: 142/81 -Will continue home medication regimen 4. DM2 -Will continue home medication regimen 5. Hypothyroidism -Will continue home medication regimen 6. R Humerus Fracture -Stable, non-operative PCP: Nito Code: Full Diet: HH w/ Low Sodium Activity: Ambulate w/ Assist VTE PPx: Lovenox IVF: KVO Dispo: Patient is currently stable and admitted to the Telemetry Floor for mild CHF Exacerbation. Will attempt gentle diuresis and monitor strict I/O as per above. Expected LOS < 48H. Addendum - Attending - Attending Attestation Date/Time: 01/29/20 1121 I personally evaluated the patient and discussed the management with Dr. Alexander. I agree with the History, Examination, Assessment and Plan documented above with any addition or exceptions noted below. Patient here with worsening edema in setting of HFpEF and med noncompliance. He is diuresing well. Continue mild diuresis. No oxygen requirement at this time. Electrolyte monitoring with his diuretics.
[2020-01-29] MEDS ORDERED: Dextrose 5% in Water 1,000 ML IV PRN (05:57)
[2020-01-29] MEDS ORDERED: HumaLOG 300 UNITS/3 ML VIAL SC PRN (05:57)
[2020-01-29] MEDS ORDERED: Dextrose 50% Abboject 50 ML SYRINGE SLOW IVP PRN (05:57)
[2020-01-29] MEDS: HumaLOG 300 UNITS/3 ML VIAL SC PRN ×3 (06:43→18:29)
[2020-01-29] MEDS: Rifaximin 550 MG TAB PO SCH ×2 (08:27→21:21)
[2020-01-29] MEDS: Potassium Chloride 10 MEQ TAB PO SCH ×2 (08:27→21:21)
[2020-01-29] MEDS: Torsemide 20 MG TAB PO SCH ×3 (08:27→21:21)
[2020-01-29] MEDS: Spironolactone 25 MG TAB PO SCH ×2 (08:28→16:42)
[2020-01-29] MEDS: Enoxaparin Sodium 40 MG/0.4 ML SYRINGE SC SCH (08:28)
[2020-01-29] MEDS: Aspirin 81 mg Enteric Coated Tablet PO SCH (08:28)
[2020-01-29] MEDS: Insulin Glargine 20 UNITS in Pre-Filled Syringe 1 EACH SC SCH ×2 (08:29→21:22)
[2020-01-29] MEDS ORDERED: Non-Formulary Item 1 EACH (Insulin Degludec [Tresiba] 100 UNIT/ML Vial) SQ SCH (09:00)
[2020-01-29 14:26] LABS: Anion Gap 11 mmol/L (10-20); BUN (Urea Nitrogen) 11 mg/dL (8.4-25.7); Calc. Creatinine Clearance 81 mL/min (70-130); Calcium 9.3 mg/dL (7.8-10.44); Carbon Dioxide 32 mmol/L (23-31); Chloride 97 mmol/L (98-107); Estimated GFR-MDRD 66; Glucose 281 mg/dL (83-110); Potassium 3.4 mmol/L (3.5-5.1); Sodium 137 mmol/L (136-145)
[2020-01-29] MEDS ORDERED: Potassium Chloride 20 MEQ TAB PO SCH (16:00)
[2020-01-29] MEDS ORDERED: Labetalol HCl 100 MG/20 ML VIAL SLOW IVP PRN (21:43)
--- NOTE | 2020-01-30 05:47 | PDOC.FM ---
- Subjective Subjective: Patient was resting comfortably in bed at the time of evaluation. He denied any acute overnight events, to include chest pain or SOB. - Objective Vital Signs & Weight: Vital Signs (12 hours) Temp Pulse Pulse Resp BP BP BP 01/30/20 04:00 98.3 F 64 23 H 164/77 H 01/30/20 01:37 173/81 H 01/30/20 00:00 68 152/70 H 01/29/20 22:17 80 187/88 H 01/29/20 21:27 80 187/88 H 01/29/20 20:00 98.2 F 80 184/86 H 01/29/20 19:43 80 184/86 H Pulse Ox 01/30/20 04:00 95 01/30/20 01:37 01/30/20 00:00 01/29/20 22:17 01/29/20 21:27 01/29/20 20:00 99 01/29/20 19:43 Weight Weight 107.456 kg I&O: 01/28/20 01/29/20 01/30/20 06:59 06:59 06:59 Intake Total 937 Balance 937 Result Diagrams: 01/29/20 04:10 01/29/20 13:53 Phys Exam - Physical Examination Constitutional: NAD HEENT: moist MMs Neck: supple, full ROM Respiratory: no wheezing, no rales, no rhonchi, clear to auscultation bilateral Cardiovascular: no significant murmur, no rub Irregularly Irregular w/o Tachycardia Gastrointestinal: soft, non-tender, no distention, positive bowel sounds Musculoskeletal: pulses present +1 Pitting Edema bilaterally to the knee Neurological: non-focal, moves all 4 limbs Psychiatric: normal affect Deviation from normal: Venous Stasis Dermatitis Dx/Plan (1) CHF exacerbation Code(s): I50.9 - HEART FAILURE, UNSPECIFIED Status: Acute (2) Liver cirrhosis Code(s): K74.60 - UNSPECIFIED CIRRHOSIS OF LIVER Status: Acute (3) (HFpEF) heart failure with preserved ejection fraction Code(s): I50.30 - UNSPECIFIED DIASTOLIC (CONGESTIVE) HEART FAILURE Status: Chronic (4) Chronic a-fib Code(s): I48.2 - CHRONIC ATRIAL FIBRILLATION * DO NOT USE * Status: Chronic (5) DM2 (diabetes mellitus, type 2) Status: Chronic Qualifiers: Diabetes mellitus group home insulin use: with group home use Diabetes jerryit complication status: with circulatory complication Diabetes mellitus c omplication detail: with other circulatory complications Qualified Code(s): E11.59 - Type 2 diabetes mellitus with other circulatory complications; Z79.4 - longterm (current) use of insulin; Z79.4 - vermin exterminator (current) use of insulin; Z79.4 - vermin exterminator (current) use of insulin; Z79.4 - vermin exterminator (current) use of insulin (6) HTN (hypertension) Code(s): I10 - ESSENTIAL (PRIMARY) HYPERTENSION Status: Chronic Qualifiers: Hypertension type: essential hypertension Qualified Code(s): I10 - Essential (primary) hypertension - Plan Plan: Patient is an 84 y/o male with a PMH significant for HFpEF, Cirrhosis, HTN, and DM2 who presents to the hospital for evaluation of worsening LE edema. 1. LE Edema, likely 2/2 CHF Exacerbation -Patient is followed locally by Dr. Herndon (Cardiology) -Patient's son thinks that the patient has gained ~10 LBS over the past 1-2W, but admits the he has missed several doses of his medication regimen -Per report, patient received an extra dose of Torsemide at home from his son and was administered Lasix 80 mg IV in the ED - profuse diuresis noted -Physical Exam in ED notable for +2 Pitting Edema bilaterally with scant crackles on Respiratory Exam - no need for supplemental O2 documented -Echo (04/12): EF (50-55%), A-Fib, severe Left Atrium dilation -Trop: 0.015 -BNP: 33.8 -Will plan to restart patient's home medication regimen and begin gentle diuresi s in order to avoid severe pre-load disruption -Strict I/O 2. Cirrhosis -TBili: 1.6 - appears near baseline -No evidence of Metabolic Encephalopathy 3. HTN -BP: 142/81 on admission -BPs mildly elevated overnight - PRN antihypertensives in place -Will continue home medication regimen 4. DM2 -POC Gluocse levels range in the high 200s to 300s despite initiating patient's home medication regimen / pharmacy equivalent -Will increase Lantus to 25u SC BID and initiate Moderate SSI -ACHS Accuchecks -Hypoglycemia Protocol 5. Hypothyroidism -Will continue home medication regimen 6. R Humerus Fracture -Stable, non-operative PCP: Nito Code: Full Diet: CC w/ Fluid Restriction (1800 ml) Activity: Ambulate w/ Assist VTE PPx: Lovenox IVF: KVO Dispo: Patient is currently stable and admitted to the Telemetry Floor for mild CHF Exacerbation. Will continue gentle diuresis and monitor strict I/O as per above. Expected LOS < 48H. Addendum - Attending - Attending Attestation Date/Time: 01/30/20 1120 I personally evaluated the patient and discussed the management with Dr. Alexander. I agree with the History, Examination, Assessment and Plan documented above with any addition or exceptions noted below. Patient has diuresed well with home med regimen and is feeling improved. We are having PT evaluate him, but if they recommend continued PT with HH services, he is likely ready for discharge.
[2020-01-30] MEDS: HumaLOG 300 UNITS/3 ML VIAL SC PRN ×3 (06:26→16:18)
[2020-01-30] MEDS: Levothyroxine Sodium 112 MCG TAB PO SCH (06:27)
[2020-01-30] MEDS: Spironolactone 25 MG TAB PO SCH ×2 (07:37→16:18)
[2020-01-30] MEDS: Torsemide 20 MG TAB PO SCH ×2 (07:37→16:18)
[2020-01-30] MEDS: Potassium Chloride 10 MEQ TAB PO SCH (07:37)
[2020-01-30] MEDS: Aspirin 81 mg Enteric Coated Tablet PO SCH (07:37)
[2020-01-30] MEDS: Rifaximin 550 MG TAB PO SCH (07:37)
[2020-01-30] MEDS: Enoxaparin Sodium 40 MG/0.4 ML SYRINGE SC SCH (07:38)
[2020-01-30] MEDS ORDERED: Insulin Glargine 25 UNITS in Pre-Filled Syringe 1 EACH SC SCH (09:00)
[2020-01-30 16:18] VITALS: TEMP 98
[2020-01-30 16:40] VITALS: BP 151/75
--- NOTE | 2020-01-31 13:31 | DIS ---
DATE OF ADMISSION: 01/28/2020 DATE OF DISCHARGE: 01/30/2020 RESIDENT: Surendra Alexander MD ADMITTING ATTENDING: Mayank Conklin MD DISCHARGE ATTENDING: Alon Palafox MD CONSULTS: None. PROCEDURES: Chest x-ray performed on 01/28/2020, which demonstrated congestive heart failure and atherosclerosis. PRIMARY DIAGNOSIS: Acute exacerbation of congestive heart failure. SECONDARY DIAGNOSES: Cirrhosis, hypertension, type 2 diabetes, hypothyroidism, recent right humerus fracture. DISCHARGE MEDICATIONS: 1. Aspirin 81 mg p.o. daily. 2. Insulin sliding scale, Tresiba 20 units subcutaneous b.i.d. 3. Lactulose 60 g p.o. 4 times daily. 4. Levothyroxine 112 mcg p.o. daily. 5. Metolazone 5 mg p.o. as directed. 6. Potassium chloride 20 mEq daily for 30 days. 7. 550 mg p.o. b.i.d. 8. Spironolactone 25 mg p.o. b.i.d. 9. Torsemide 20 mg p.o. t.i.d. DISCONTINUED MEDICATIONS: None. HISTORY OF PRESENT ILLNESS AND HOSPITAL COURSE: The patient is an 84-year-old male with a past medical history significant for heart failure with preserved ejection fraction, cirrhosis, hypertension, diabetes, obstructive sleep apnea, chronic atrial fibrillation, pulmonary hypertension, hypothyroidism secondary to thyroidectomy, who presents with worsening bilateral lower extremity edema for the last several days. The patient states that his legs are swollen at baseline, that they have gotten increasingly worse overnight. The patient denied any other symptoms other than a decreased appetite. The patient denies headache, changes in vision, chest pain, shortness of breath, scrotal swelling, abdominal pain, decreased urine output, changes in stool output. The patient notes medication compliance for the most part, but occasionally does not take his medications on road trip so he does not have to pee much. When the patient's son, who was present during the majority of the patient's hospitalization, was questioned further, it appears that the patient is probably not as compliant as he lets on and may miss more than just several doses based on upcoming car trips and periods of immobility. The patient also does not follow a fluid-restricted diet, but he does follow up with Dr. Ravin Herndon, Cardiology, whom he has not seen recently. Of note, the patient recently had a right humerus fracture that was nonoperable. The patient was evaluated in the ER, and he was administered 80 mg of Lasix via IV and nitroglycerin. The patient's diuresis was ongoing since that time and was noted by the resident night team to be profuse, putting out approximately 3 L of urine while in the emergency department. The patient was subsequently transferred to the telemetry floor for further observation and monitoring of his ongoing diuresis. On admission, the patient demonstrated bilateral pitting edema with reportedly +4 pitting edema up to the level of the knee as well as +3 pitting edema on the level of the thighs. On initial evaluation by the resident day team, the patient had +2 to 3 pitting edema up to the mid knee with trace pitting edema on the thighs. On admission, the patient's weight was noted to be 113.39 kg. Prior to discharge, the patient's weight was recorded to be 107.45 kg demonstrating a notable diuresis. Although orders were placed for daily weights and strict intake and output measurements, this was hampered somewhat because the patient was wearing a PureWick rather than a Seay catheter, and an exact approximation of the total amount of fluid that the patient diuresed is impossible to obtain. During the patient's hospitalization, he was also noted to have severely elevated blood glucose readings in the high 300s and 400s. As such, the patient's home long-acting insulin regimen was altered to include 25 units of Lantus subcutaneous b.i.d. When questioned about the patient's elevated blood sugars, the patient actually stated that blood sugars ranging in the 300s to 400s were normal for him. As such, the patient was subsequently told to follow up with his primary care physician in outpatient setting in order to adjust this appropriately. Additionally, the patient endorsed having a history of chronic atrial fibrillation; however, he was not on anticoagulation. This apparently was a discussion that was had between the patient, the patient's son, and the primary care provider, and no intervention or need to augment with anticoagulation therapy was determined to be warranted at the time of hospitalization. The patient subsequently stated that the swelling in his legs had decreased appropriately. On the day of discharge had decreased to approximately trace to +1 pitting edema to the level of the mid tibia bilaterally, and the patient was subsequently prepped for discharge. Prior to discharge, the patient's vital signs were recorded as temperature 98 degrees, heart rate 78 beats per minute, blood pressure 169/77, respirations 18 breaths per minute, and oxygen saturation 96% on room air. LABORATORY ANALYSIS: Revealed a white blood cell count of 6, hemoglobin of 11, hematocrit of 32.5, platelet count of 192. Chem panel revealed a sodium of 137, potassium 3.4, chloride 97, carbon dioxide 32, BUN 11, creatinine 1.07. POC glucose 287, calcium of 9.3, total bilirubin 1.6, AST 23, ALT 18, alkaline phosphatase 215. Troponins were initially measured at 0.015 and were not trended. BNP was found to be 33.8. DISPOSITION: Stable. DISCHARGE INSTRUCTIONS: 1. Location: Home. 2. Diet: Heart healthy and diabetic diet with fluid restriction of approximately 1.5 L per day. 3. Activity: No restrictions. 4. Followup: The patient was encouraged to follow up with his primary care provider in approximately 1 to 2 weeks in order to discuss his most recent hospitalization as well as ongoing medical management of his heart failure with preserved ejection fraction. Job ID: [id number]
[2020-02-01] MEDS ORDERED: Metolazone 2.5 MG TAB PO SCH (09:00)
== END 2020-01-30 18:25 | disposition home or self-care (01) | DRG 292 ==
LOC: ERS 15:58 → 2NO 19:43
PROVIDERS: ADMIT Family Medicine; ATTEND Family Medicine
DX: I11.0 Hypertensive heart disease with heart failure (principal); I48.20 Chronic atrial fibrillation, unspecified; E11.65 Type 2 diabetes mellitus with hyperglycemia; E03.9 Hypothyroidism, unspecified; Z96.651 Presence of right artificial knee joint; I50.33 Acute on chronic diastolic (congestive) heart failure; I27.20 Pulmonary hypertension, unspecified; K76.1 Chronic passive congestion of liver; E11.59 Type 2 diabetes mellitus with other circulatory complications; G47.33 Obstructive sleep apnea (adult) (pediatric); S42.301G Unspecified fracture of shaft of humerus, right arm, subsequent encounter for fracture with delayed healing; Z88.0 Allergy status to penicillin; Z86.711 Personal history of pulmonary embolism; Z90.49 Acquired absence of other specified parts of digestive tract; Z79.899 Other long term (current) drug therapy; Z79.82 Long term (current) use of aspirin; Z79.4 Long term (current) use of insulin; Z79.890 Hormone replacement therapy
CPT/HCPCS: 36415; 36416; 71045; 80053; 83880; 84484; 85025; 93005; 93798; 96374; J1650; J1815; J1940

== ENCOUNTER 2020-02-01 21:28 | Emergency (ER) | payer MEDICARE, BC ==
[2020-02-01 22:09] LABS: #Eosinphils 0.6 thou/uL (0.0-0.7); #Lymphocytes 0.7 thou/uL (1.20-3.40); #Monocytes 0.4 thou/uL (0.11-0.59); #Neutrophils 1.8 thou/uL (1.40-6.50); %Basophils 0.1 % (0.0-1.0); %Eosinophils 17.3 % (0.0-10.0); %Lymphocytes 19.1 % (21.0-51.0); %Monocytes 11.1 % (0.0-10.0); %Neutrophils 52.5 % (42.0-75.0); Hemoglobin 11.5 g/dL (14.0-18.0); Mean Corpuscular HGB CONC 33.9 g/dL (32.0-36.0); Mean Corpuscular Hemoglobin 34.7 pg (27.0-31.0); Mean Platelet Volume 6.9 fL (7.4-10.4); Platelet Count 166 thou/uL (130-400); RBC Distribution Width 14.8 % (11.5-14.5); White Blood Cell (WBC) Count 3.4 thou/uL (4.8-10.8)
--- NOTE | 2020-02-01 22:11 | RAD ---
XR Chest 1 View Portable History: Weakness Comparison: Radiograph January 28, 2020 Findings: Heart size is enlarged. Patient is rotated to the right. No confluent airspace consolidatio n, pneumothorax or effusion. Old left humeral neck fracture. Impression: 1. Old left humeral neck fracture. 2. Marked cardiomegaly. 3. Nodular density projects over the left lower lobe likely confluence of shadows due to patient's ri ghtward rotation.
[2020-02-01 22:33] LABS: ALT (SGPT) 24 U/L (8-55); AST (SGOT) 40 U/L (5-34); Albumin 3.4 g/dL (3.4-4.8); Alkaline Phosphatase 267 U/L (40-110); Anion Gap 14 mmol/L (10-20); BUN (Urea Nitrogen) 19 mg/dL (8.4-25.7); Bilirubin, Total 1.8 mg/dL (0.2-1.2); CK (CPK) 140 U/L (30-200); Calc. Creatinine Clearance 0 mL/min (70-130); Carbon Dioxide 27 mmol/L (23-31); Chloride 99 mmol/L (98-107); Estimated GFR-MDRD 54; Globulin 3.8 g/dL (2.4-3.5); Glucose 298 mg/dL (83-110); Magnesium 1.9 mg/dL (1.6-2.6); Potassium 4.2 mmol/L (3.5-5.1); Protein, Total 7.2 g/dL (5.8-8.1); Sodium 136 mmol/L (136-145)
[2020-02-01 23:13] LABS: Bilirubin Negative (Negative); Blood, Urine Negative (Negative); Clarity Clear (Clear); Glucose, Urine (Dipstick) 200 mg/dL (Negative); Ketone, Urine Negative (Negative); Leukocyte Negative Leu/uL (Negative); Nitrite Negative (Negative); Protein, Urine (Dipstick) Negative (Neg-Trace); Specific Gravity, Urine 1.014 (1.002-1.036); pH, Urine 5.5 (5.0-9.0)
== END 2020-02-02 04:39 ==
LOC: ERS 21:28
DX: R53.1 Weakness (principal); I11.0 Hypertensive heart disease with heart failure; I50.9 Heart failure, unspecified; I48.91 Unspecified atrial fibrillation; E03.9 Hypothyroidism, unspecified; Z79.899 Other long term (current) drug therapy
CPT/HCPCS: 36415; 71045; 80053; 81003; 82550; 83735; 83880; 84484; 85025; 93005

== ENCOUNTER 2020-02-15 14:23 | Inpatient (IN) | payer MEDICARE, BC ==
[2020-02-15 14:59] LABS: #Eosinphils 0.1 thou/uL (0.0-0.7); #Lymphocytes 0.8 thou/uL (1.20-3.40); #Monocytes 0.5 thou/uL (0.11-0.59); #Neutrophils 4.3 thou/uL (1.40-6.50); %Basophils 0.2 % (0.0-1.0); %Eosinophils 2.1 % (0.0-10.0); %Lymphocytes 14.6 % (21.0-51.0); %Monocytes 8.3 % (0.0-10.0); %Neutrophils 74.7 % (42.0-75.0); Hemoglobin 12.3 g/dL (14.0-18.0); Mean Corpuscular HGB CONC 34.8 g/dL (32.0-36.0); Mean Corpuscular Hemoglobin 34.3 pg (27.0-31.0); Mean Corpuscular Volume 98.7 fL (78.0-98.0); Mean Platelet Volume 7.8 fL (7.4-10.4); Platelet Count 199 thou/uL (130-400); RBC Distribution Width 15.3 % (11.5-14.5); Red Blood Cell (RBC) Count 3.57 mill/uL (4.70-6.10); White Blood Cell (WBC) Count 5.7 thou/uL (4.8-10.8)
--- NOTE | 2020-02-15 15:01 | RAD ---
Exam: Chest one view HISTORY:Confusion. Mental status change. Comparison: 02/01/2020 FINDINGS: Cardiac silhouette:Cardiomegaly Aorta: Atherosclerosis Pulmonary vessels: Normal Costophrenic angles: Clear LUNGS: Chronic lung parenchymal changes. Possible left lower lobe infiltrate. Pneumothorax: None Osseous abnormalities: Chronic changes involving the left humeral neck. Displaced right humeral neck fracture. IMPRESSION: 1. Cardiomegaly. 2. Atherosclerosis. 3. Left lower lobe infiltrate.
--- NOTE | 2020-02-15 15:31 | CT ---
Exam: Head CT without contrast HISTORY: Altered mental status. COMPARISON: 12/09/2019 FINDINGS: Hemorrhage: No intraparenchymal hemorrhage or extra-axial hematoma. Brain parenchyma: Cortical ma-white matter differentiation is preserved. No mass effect or midline shift. Basilar cisterns are patent.Chronic small vessel ischemic changes white matter Ventricular system: Ventricles and sulci are patent and symmetric. Calvarium: Intact. Sinuses and mastoid air cells: Opacification the right sphenoid sinus. Right maxillary sinus mucus re tention cysts. IMPRESSION: No acute intracranial process.
[2020-02-15 15:37] LABS: Calcium 9.6 mg/dL (7.8-10.44)
[2020-02-15 15:40] LABS: ALT (SGPT) 44 U/L (8-55); AST (SGOT) 46 U/L (5-34); Albumin 3.1 g/dL (3.4-4.8); Alkaline Phosphatase 299 U/L (40-110); Anion Gap 14 mmol/L (10-20); BUN (Urea Nitrogen) 47 mg/dL (8.4-25.7); Bilirubin, Total 1.7 mg/dL (0.2-1.2); CK (CPK) 42 U/L (30-200); Calc. Creatinine Clearance 0 mL/min (70-130); Carbon Dioxide 32 mmol/L (23-31); Chloride 97 mmol/L (98-107); Estimated GFR-MDRD 40; Globulin 4.6 g/dL (2.4-3.5); Glucose 283 mg/dL (83-110); Lipase 33 U/L (8-78); Protein, Total 7.7 g/dL (5.8-8.1); Sodium 139 mmol/L (136-145)
[2020-02-15 15:46] LABS: CKMB 0.5 ng/mL (0-6.6)
[2020-02-15] MEDS ORDERED: Cefepime 2 GM VIAL ONE (16:03)
--- NOTE | 2020-02-15 16:45 | PDOC.FPRHP ---
- History of Present Illness Chief Complaint: AMS History of Present Illness: Pt is an 84M referred to the ED from [facility] from which he has been receiving therapy 2x/wk s/p fluid overload and R shoulder injury. He has a hx of cirrhosis and, per the ED report, has been refusing and spitting out his lactulose the past few days. He was seen with a similar presentation in 05/2019. On exam, he will open his eyes on command and have inappropriate responses to questions; he will not follow any other commands or withdraw from pain. GCS not <8, therefore intubation not indicated. All hx obtained from records present in the ED. Emergency contact: Saqib Bell, kim. [phone] ED Course: Received Vancomycin 2g, Cefepime 2g, 1L NS bolus - Allergies/Adverse Reactions Allergies Allergy/AdvReac Type Severity Reaction Status Date / Time Penicillins Allergy Hives Verified 07/16/19 01:12 - Home Medications Medication Instructions Recorded Confirmed Type Aspirin [Ecotrin Low Strength] 81 mg PO DAILY 05/16/19 01/28/20 History Lactulose 10 GM/15ML Oral Jenna 60 g PO QID 05/16/19 01/28/20 History [Lactulose] Levothyroxine Sodium [Synthroid] 112 mcg PO DAILY 05/16/19 01/28/20 History Rifaximin [Xifaxan] 550 mg PO BID 05/16/19 01/28/20 History Spironolactone 25 mg PO BID-AC 05/16/19 01/28/20 History Torsemide 20 mg PO TID 05/16/19 01/28/20 History Metolazone 5 mg PO ASDIR #14 tab 05/18/19 01/28/20 Rx Insulin Aspart [Novolog] 0 unit SQ PRN PRN 06/11/19 01/28/20 History Insulin Degludec [Tresiba] 20 unit SQ BID 06/11/19 01/28/20 History Potassium Chloride [Klor-Con 10] 20 meq PO BID 30 Days #30 tab 06/12/19 01/28/20 Rx - History PMHx: Cirrhosis, CHF, DM2, HTN, AFib, hypothyroidism, PE PSHx: R humerus fx s/p repair, L shoulder fx s/p repair FHx: noncontributory Social: Lives with son in a SSH. Baseline, independent in all areas of functiona l mobility using a RW. - Review of Systems ROS unobtainable: due to mental status - Vital signs BP: 130/97 HR: 82 RR: 20 Tmax: 98.8F Pox: 97% on RA Wt: 99kg - Physical Exam Constitutional: NAD -Constitutional: GCS: opening eyes on command; verbally responds with inappropriate words; obeys command to open eyes but does not respond to any other command and did not withdraw to pain. Protecting his airway; intubation not indicated HEENT: normocephalic and atraumatic, PERRLA -HEENT: Mucosa looks dry Neck: supple Chest: no lesions Heart: RRR, pulses present (2+ b/l radial and dp pulses), no edema (in b/l LE) -Heart: Systolic heart murmur Lungs: CTAB, no respiratory distress Abdomen: soft, bowel sounds present -Abdomen: Mildly distended. No pain response illicited on palpation Musculoskeletal: normal structure, normal tone Skin: no rash/lesions -Skin: Skin of feet excessively dry and flaky Heme/Lymphatic: no purpura, no petechia FMR H&P: Results - Labs Result Diagrams: 02/15/20 14:49 02/15/20 14:49 Lab results: WBC 5.7 thou/uL (4.8-10.8) 02/15/20 14:49 Hgb 12.3 g/dL (14.0-18.0) L 02/15/20 14:49 Hct 35.3 % (42.0-52.0) L 02/15/20 14:49 MCV 98.7 fL (78.0-98.0) H 02/15/20 14:49 Plt Count 199 thou/uL (130-400) 02/15/20 14:49 Neutrophils % 74.7 % (42.0-75.0) 02/15/20 14:49 Sodium 139 mmol/L (136-145) 02/15/20 14:49 Potassium 4.0 mmol/L (3.5-5.1) 02/15/20 14:49 Chloride 97 mmol/L (98-107) L 02/15/20 14:49 Carbon Dioxide 32 mmol/L (23-31) H 02/15/20 14:49 BUN 47 mg/dL (8.4-25.7) H 02/15/20 14:49 Creatinine 1.67 mg/dL (0.7-1.3) H 02/15/20 14:49 Glucose 283 mg/dL (83-110) H 02/15/20 14:49 Lactic Acid 2.5 mmol/L (0.5-2.2) H 02/15/20 15:36 Calcium 9.6 mg/dL (7.8-10.44) 02/15/20 14:49 Total Bilirubin 1.7 mg/dL (0.2-1.2) H 02/15/20 14:49 AST 46 U/L (5-34) H 02/15/20 14:49 ALT 44 U/L (8-55) 02/15/20 14:49 Alkaline Phosphatase 299 U/L (40-110) H 02/15/20 14:49 Ammonia 67 umol/L (18-72) 02/15/20 14:49 Creatine Kinase 42 U/L (30-200) 02/15/20 14:49 CK-MB (CK-2) 0.5 ng/mL (0-6.6) 02/15/20 14:49 Serum Total Protein 7.7 g/dL (5.8-8.1) 02/15/20 14:49 Albumin 3.1 g/dL (3.4-4.8) L 02/15/20 14:49 Lipase 33 U/L (8-78) 02/15/20 14:49 FMR H&P: A/P - Plan Acute encephalopathy likely 2/2 cirrhosis - A&O x1, eyes open on command, speech inappropriate, no withdrawal from pain Fall risk order Strict bedrest - TOOTH POLISHER consulted for swallow eval NPO for now Aspiration risk order - LFTs and TBili elevated, c/w previous visits - Ammonia 67, lower than in previous visits - LA 2.5, likely close to baseline 2/2 cirrhosis - Lactulose 20mg q2h Titrate until 3 BMs per day - PT/PTT/INR pending - U/A, UCx, BCx, UDS pending Possible LLL PNA - CXR showed possible LLL infiltrate - ED gave Cefepime, Vancomycin. Discontinued. - Starting her on Rocephin and Azithro - Procal ordered HFpEF - Echo in 03/2019 shows EF 50-55%, aortic stenosis, tricuspid regurg Systolic murmur heard on exam - Received 1L NS in the ED - No mIVF - Monitor fluid status: strict I&Os - BNP ordered AFib - Hx of AFib, not on anticoagulation per hospital records - POA - Pt on tele for monitoring T2DM - Chronic, POA - Mod and bedtime SSI - ACHS checks - Hypoglycemia protocol in place Hypothyroidism - MD aware - Restart home med Hx of PE - Per records on arrival - MD aware - No Ppx pending coag studies Dispo: inpt tele, LOS likely >48hrs pending improvement of AMS Diet: NPO pending TOOTH POLISHER eval IVF: N/A DVT Ppx: None, pending coag studies PCP: Nito Code: Full, per prior admission records FMR H&P: Upper Level - Pertinent history [facility] 84 [facility] 50-55%, cirrhosis with hx of hepatic encephalopathy, chronic a-fib, hypothyroidism, DMII who presents for altered mental status. Per ER pt was not taking his lactulose as instructed over the last week. His mentation waxed and waned until becoming altered. He was recently discharged for an acute heart failure exacerbation. He was discharged to home with home health [facility]. Pt is not making intelligible responses other than answering to his name correctly. Vitals stable, afebrile Pertinent Physical Exam: GSC 10, breath sounds difficult to appreciate with moaning but did not hear crackles, rales; no wheezing, systolic heart murmur, no LE swelling, did not appreciate JVD, distended abdomen Labs: BG 283, Ammonia 67, Lipase 33, TSH 2.9, Trop 0.039, Creatinine 1.67, BUN 47, Hgb 12.3, WBC 5.7 CXR: Possible LLL pneumonia, diffuse interstitial lung markings Refer to physical exam for full H&P Plan: # Acute Metabolic Encephalopathy Likely 2/2 hepatic encephalopathy but cannot rule out pneumonia, UTI, intoxication -Pending UA, UDS, procalcitonin -Administer lactulose # LLL Pneumonia CAP -Start azithromycin, ceftriaxone -Pt given cefepime, vanc, Levaquin in ED -Pt did not meet sepsis criteria # Cirrhosis -Continue home meds -Fluid restrict, pt given 1 L fluids in ED -Restart home meds # Elevated trop -Trend -Likely demand # HFpEF -Limit fluids -BNP pending # DM II -Restart home meds at dose -Aggressive SSI # Hypothyroidism -Restart home meds # R Humerus Fracture -Aware, in sling # LEONARDO -Aware, monitor O2 saturations # Chronic A-Fib -Restart home meds Code: Full at last visit Fluids: None Diet: NPO VTE: none Dispo: Admit to tele inpatient > 48 hours - Plan Date/Time: 02/15/20 2543 IIshmael, have evaluated this patient and agree with findings/plan as outlined by senior internet sales consultant resident. Pertinent changes/additions are listed here.
[2020-02-15 18:47] LABS: Lactic Acid 2.6 mmol/L (0.5-2.2)
[2020-02-15] MEDS ORDERED: Dextrose 5% in Water 1,000 ML IV PRN (18:51)
[2020-02-15] MEDS ORDERED: Dextrose 50% Abboject 50 ML SYRINGE SLOW IVP PRN (18:51)
[2020-02-15 19:44] LABS: INR-International Normal Ratio 1.1; Prothrombin Time 14.2 sec (12.0-14.7)
[2020-02-15 19:45] LABS: PTT 32.9 sec (22.9-36.1)
[2020-02-15 20:36] VITALS: BMI 33.4
[2020-02-15] MEDS ORDERED: Enoxaparin Sodium 40 MG/0.4 ML SYRINGE SC SCH (21:00)
[2020-02-15 21:40] LABS: Troponin I 0.026 ng/mL (< 0.028)
[2020-02-15] MEDS: Azithromycin 500 MG in Sodium Chloride 0.9% 250 ML 250 ML IVPB SCH (22:09)
[2020-02-15] MEDS: Insulin Glargine 10 UNITS in Pre-Filled Syringe SC SCH (22:41)
[2020-02-16] MEDS: Acetaminophen 500 MG TAB PO PRN (00:52)
[2020-02-16] MEDS: Melatonin 3 MG TAB PO PRN ×2 (00:52→21:16)
[2020-02-16 04:51] LABS: #Eosinphils 0.1 thou/uL (0.0-0.7); #Monocytes 0.5 thou/uL (0.11-0.59); #Neutrophils 4.6 thou/uL (1.40-6.50); %Basophils 0.1 % (0.0-1.0); %Eosinophils 0.9 % (0.0-10.0); %Lymphocytes 15.5 % (21.0-51.0); %Monocytes 7.7 % (0.0-10.0); %Neutrophils 75.9 % (42.0-75.0); Hemoglobin 11.4 g/dL (14.0-18.0); Mean Corpuscular HGB CONC 33.7 g/dL (32.0-36.0); Mean Corpuscular Hemoglobin 34.1 pg (27.0-31.0); Mean Platelet Volume 7.8 fL (7.4-10.4); Platelet Count 180 thou/uL (130-400); RBC Distribution Width 15.3 % (11.5-14.5); Red Blood Cell (RBC) Count 3.33 mill/uL (4.70-6.10); White Blood Cell (WBC) Count 6.1 thou/uL (4.8-10.8)
[2020-02-16] MEDS: cefTRIAXone\\ROCEPHIN 1 GM in Sodium Chloride 0.9% 100 ML IVPB SCH (05:08)
[2020-02-16 05:20] LABS: ALT (SGPT) 39 U/L (8-55); AST (SGOT) 39 U/L (5-34); Albumin 2.8 g/dL (3.4-4.8); Alkaline Phosphatase 253 U/L (40-110); Anion Gap 15 mmol/L (10-20); BUN (Urea Nitrogen) 44 mg/dL (8.4-25.7); Bilirubin, Total 1.5 mg/dL (0.2-1.2); Calc. Creatinine Clearance 61 mL/min (70-130); Calcium 9.1 mg/dL (7.8-10.44); Carbon Dioxide 26 mmol/L (23-31); Chloride 104 mmol/L (98-107); Estimated GFR-MDRD 55; Globulin 4.1 g/dL (2.4-3.5); Glucose 160 mg/dL (83-110); Potassium 3.9 mmol/L (3.5-5.1); Protein, Total 6.9 g/dL (5.8-8.1); Sodium 141 mmol/L (136-145)
--- NOTE | 2020-02-16 05:49 | PDOC.FM ---
- Subjective Subjective: Mr. Bell is asleep this morning and not fully arousable. Per check out, he become agitated overnight where he was yelling belligerently but has since calmed down. He has received 3 doses of Lasix but has not yet had a BM. - Objective Vital Signs & Weight: Vital Signs (12 hours) Temp Pulse Resp BP Pulse Ox 02/16/20 04:00 97.5 F L 71 14 150/82 H 95 02/15/20 23:58 97.9 F 81 16 142/95 H 96 02/15/20 20:00 98.0 F 80 18 141/86 H 95 Weight Weight 93.984 kg Result Diagrams: 02/16/20 04:35 02/16/20 04:35 Phys Exam - Physical Examination Constitutional: NAD (sleeping comfortably, minimally arousable) Neck: supple Respiratory: clear to auscultation bilateral (in upper lobes. Lower lobes difficult to auscultate d/t pt sleeping) Cardiovascular: RRR Systolic murmur c/w hx of aortic stenosis Gastrointestinal: soft, positive bowel sounds Abdomen distended Musculoskeletal: no edema, pulses present Unable to assess at this time. Has been altered Unable to assess at this time Skin: no rash Deviation from normal: Sacral and R hip erythema; wound care following Dx/Plan - Plan Plan: Acute encephalopathy likely 2/2 cirrhosis - A&O x1, eyes open on command, speech inappropriate, no withdrawal from pain Fall risk order Strict bedrest - Passed bedside swallow for lactulose and pudding - NPO pending formal swallow study given mentation - Lactulose 20mg q2h Titrate until 3 BMs per day - PT/PTT/INR nml - U/A, UCx, BCx, UDS pending Possible LLL PNA - CXR showed possible LLL infiltrate - Rocephin and Azithro - Procal 0.1 HFpEF - Echo in 03/2019 shows EF 50-55%, aortic stenosis, tricuspid regurg Systolic murmur heard on exam - No mIVF - Monitor fluid status: strict I&Os - BNP 49 AFib - Hx of AFib, not on anticoagulation per hospital records - POA - Pt on tele for monitoring T2DM - Chronic, POA - Mod and bedtime SSI - ACHS checks - Hypoglycemia protocol in place Dermal wounds - Sacral and R hip erythema - Wound care following, appreciate recs Hypothyroidism - MD aware - Restart home med Hx of PE - Per HH records on arrival - MD aware - No Ppx pending coag studies Dispo: inpt tele, LOS likely >48hrs pending improvement of AMS Diet: IVF: N/A DVT Ppx: None PCP: Nito Code: Full, per prior admission records
[2020-02-16] MEDS: Insulin Glargine 10 UNITS in Pre-Filled Syringe SC SCH ×2 (09:40→21:35)
[2020-02-16] MEDS ORDERED: Metolazone 2.5 MG TAB PO PRN (12:30)
[2020-02-16 14:13] LABS: Bacteria/HPF None Seen HPF (None Seen); Bilirubin Negative (Negative); Blood, Urine Negative (Negative); Clarity Clear (Clear); Glucose, Urine (Dipstick) Normal (Negative); Ketone, Urine Negative (Negative); Leukocyte Negative Leu/uL (Negative); Nitrite Negative (Negative); Protein, Urine (Dipstick) 20 mg/dL (Neg-Trace); RBC/HPF 0-3 HPF (0-3); Specific Gravity, Urine 1.021 (1.002-1.036); Squamous Epithelial 0-3 HPF (0-3); Urobilinogen Normal mg/dL (Less than 2); WBC/HPF 0-3 HPF (0-3); pH, Urine 5.5 (5.0-9.0)
[2020-02-16 14:22] LABS: Amphetamine Not Detected (NotDetected); Barbiturates Screen Not Detected (NotDetected); Benzodiazepine Screen Not Detected (NotDetected); Cocaine Metabolite Screen Not Detected (NotDetected); Medtox Control Line Valid? VALID (VALID); Medtox Reader # READER 4; Methadone Not Detected (NotDetected); Methamphetamine Not Detected (NotDetected); Opiate Screen Not Detected (NotDetected); Oxycodone Screen Not Detected (NotDetected); Phencyclidine (PCP) Not Detected (NotDetected); THC/Cannabinoid Screen Not Detected (NotDetected); Tricyclic Screen Not Detected (NotDetected)
[2020-02-16] MEDS: Potassium Chloride 20 MEQ TAB PO SCH (16:33)
[2020-02-16] MEDS: Torsemide 20 MG TAB PO SCH ×2 (16:34→21:16)
[2020-02-16] MEDS: Spironolactone 25 MG TAB PO SCH (16:34)
[2020-02-16] MEDS: HumaLOG 300 UNITS/3 ML VIAL SC PRN (16:48)
[2020-02-16] MEDS: Azithromycin 500 MG in Sodium Chloride 0.9% 250 ML 250 ML IVPB SCH (21:20)
[2020-02-16] MEDS: Rifaximin 550 MG TAB PO SCH (23:23)
[2020-02-17] MEDS: cefTRIAXone\\ROCEPHIN 1 GM in Sodium Chloride 0.9% 100 ML IVPB SCH (05:05)
[2020-02-17] MEDS: Levothyroxine Sodium 112 MCG TAB PO SCH (05:06)
--- NOTE | 2020-02-17 05:57 | PDOC.FM ---
- Subjective Subjective: Mr. Bell is doing well this morning. He is awake, alert, and A&Ox3. He is complaining of being thirsty; nurses say has has been having multiple loose BMs and drank ~3.5L of water overnight. His tongue is dry and cracked, and his abdomen is not more distended than usual. - Objective Vital Signs & Weight: Vital Signs (12 hours) Temp Pulse Resp BP Pulse Ox 02/17/20 04:00 97.2 F L 77 18 131/68 77 L 02/16/20 20:00 96.2 F L 71 18 129/59 L 95 Weight Weight 93.485 kg I&O: 02/15/20 02/16/20 02/17/20 06:59 06:59 06:59 Intake Total 2800 Balance 2800 Result Diagrams: 02/17/20 06:21 02/17/20 05:15 Phys Exam - Physical Examination Constitutional: NAD (awake, alert) Neck: supple Respiratory: no rales, clear to auscultation bilateral Cardiovascular: RRR Systolic murmur c/w pt's hx Gastrointestinal: soft, non-tender Distention unchanged from yesterday Musculoskeletal: no edema Neurological: non-focal, moves all 4 limbs Psychiatric: normal affect, A&O x 3 Skin: no rash Dx/Plan - Plan Plan: Acute encephalopathy likely 2/2 cirrhosis - Fall risk order, strict bedrest - Diet based on FUNERAL HOME ASSISTANT swallow study recs - Spacing out lactulose from q2h to q4h d/t fz of BMs Titrate until 3 BMs per day - U/A, UCx, BCx, UDS pending Possible LLL PNA - CXR showed possible LLL infiltrate - Rocephin and Azithro HFpEF - Echo in 03/2019 shows EF 50-55%, aortic stenosis, tricuspid regurg Systolic murmur heard on exam - No mIVF - Monitor fluid status: strict I&Os AFib - Hx of AFib, not on anticoagulation per hospital records - POA - Pt on tele for monitoring T2DM - Chronic, POA - Mod and bedtime SSI - ACHS checks - Hypoglycemia protocol in place Dermal wounds - Sacral and R hip erythema - Wound care following, appreciate recs Hypothyroidism - MD aware - Restart home med Hx of PE - Per records on arrival - aware - No Ppx pending coag studies Dispo: inpt tele, LOS likely <48hrs pending continued improvement of AMS Diet: IVF: N/A DVT Ppx: None PCP: Nito Code: Full, per prior admission records
[2020-02-17 06:13] LABS: ALT (SGPT) 42 U/L (8-55); AST (SGOT) 37 U/L (5-34); Alkaline Phosphatase 274 U/L (40-110); Anion Gap 17 mmol/L (10-20); BUN (Urea Nitrogen) 35 mg/dL (8.4-25.7); Calc. Creatinine Clearance 70 mL/min (70-130); Calcium 8.9 mg/dL (7.8-10.44); Carbon Dioxide 27 mmol/L (23-31); Chloride 100 mmol/L (98-107); Estimated GFR-MDRD 65; Globulin 4.2 g/dL (2.4-3.5); Glucose 184 mg/dL (83-110); Potassium 4.1 mmol/L (3.5-5.1); Protein, Total 7.2 g/dL (5.8-8.1); Sodium 140 mmol/L (136-145)
[2020-02-17 08:04] LABS: Band 2 % (5-11); Eosinophils 1 % (0-10); Hemoglobin 10.9 g/dL (14.0-18.0); Lymphocytes 27 % (21-51); MDiff Complete? YES; Mean Platelet Volume 8.2 fL (7.4-10.4); Monocytes 3 % (0-10); Neutrophil 67 % (42-75); Platelet Count 115 thou/uL (130-400); RBC Distribution Width 15.4 % (11.5-14.5); White Blood Cell (WBC) Count 8.1 thou/uL (4.8-10.8)
[2020-02-17] MEDS ORDERED: FLU VACC QS2020-21(65YR UP)/PF 240 MCG/0.7 ML SYRINGE IM ONE (09:00)
[2020-02-17] MEDS: Aspirin 81 mg Enteric Coated Tablet PO SCH (09:11)
[2020-02-17] MEDS: Spironolactone 25 MG TAB PO SCH (09:11)
[2020-02-17] MEDS: Potassium Chloride 20 MEQ TAB PO SCH ×2 (09:11→16:23)
[2020-02-17] MEDS: Torsemide 20 MG TAB PO SCH (09:12)
[2020-02-17] MEDS: Rifaximin 550 MG TAB PO SCH ×2 (09:12→22:07)
[2020-02-17] MEDS: Insulin Glargine 10 UNITS in Pre-Filled Syringe SC SCH ×2 (09:13→22:07)
[2020-02-17] MEDS ORDERED: Lactated Ringer's 500 ML IV SCH (09:15)
[2020-02-17] MEDS: HumaLOG 300 UNITS/3 ML VIAL SC PRN ×3 (11:40→22:08)
[2020-02-17] MEDS: Azithromycin 500 MG in Sodium Chloride 0.9% 250 ML 250 ML IVPB SCH (22:06)
[2020-02-18 04:45] LABS: #Lymphocytes 1.5 thou/uL (1.20-3.40); #Monocytes 0.7 thou/uL (0.11-0.59); #Neutrophils 3.4 thou/uL (1.40-6.50); %Basophils 0.1 % (0.0-1.0); %Eosinophils 0.6 % (0.0-10.0); %Lymphocytes 27.4 % (21.0-51.0); %Monocytes 12.2 % (0.0-10.0); %Neutrophils 59.8 % (42.0-75.0); Hemoglobin 10.6 g/dL (14.0-18.0); Mean Corpuscular HGB CONC 34.1 g/dL (32.0-36.0); Mean Corpuscular Hemoglobin 34.1 pg (27.0-31.0); Platelet Count 179 thou/uL (130-400); RBC Distribution Width 15.7 % (11.5-14.5); White Blood Cell (WBC) Count 5.6 thou/uL (4.8-10.8)
[2020-02-18 05:09] LABS: ALT (SGPT) 32 U/L (8-55); AST (SGOT) 28 U/L (5-34); Albumin 2.5 g/dL (3.4-4.8); Alkaline Phosphatase 216 U/L (40-110); Anion Gap 12 mmol/L (10-20); BUN (Urea Nitrogen) 31 mg/dL (8.4-25.7); Bilirubin, Total 1.6 mg/dL (0.2-1.2); Calc. Creatinine Clearance 77 mL/min (70-130); Calcium 8.5 mg/dL (7.8-10.44); Carbon Dioxide 24 mmol/L (23-31); Chloride 98 mmol/L (98-107); Estimated GFR-MDRD 73; Glucose 261 mg/dL (83-110); Potassium 3.8 mmol/L (3.5-5.1); Protein, Total 6.5 g/dL (5.8-8.1); Sodium 130 mmol/L (136-145)
[2020-02-18] MEDS: cefTRIAXone\\ROCEPHIN 1 GM in Sodium Chloride 0.9% 100 ML IVPB SCH (05:55)
--- NOTE | 2020-02-18 05:55 | PDOC.FM ---
- Subjective Subjective: Mr. Bell is doing well this morning. He is oriented to self, location, and knows he is here because something happened with his lactulose, but is not oriented to year. Yesterday, he was oriented to place, location, time, but not the reason for being in the hospital. Some of his diuretics were help yesterday d/t soft BPs, which has responded appropriately, but today his abdomen looks more distended and has a bit of a fluid wave. His lactulose was spaced out yesterday d/t quantity of BMs and improved mentation but he has hardly had any BMs since then. He has started to eat more and is eating ~50% of his meals, per nursing report, so his BGs have been increasing. He has no complaints at this time other than wanting to go home. - Objective Vital Signs & Weight: Vital Signs (12 hours) Temp Pulse Resp BP Pulse Ox 02/18/20 03:35 98.1 F 73 20 121/69 95 02/17/20 23:26 98.2 F 76 20 133/71 98 02/17/20 20:00 96 02/17/20 19:24 97.9 F 74 20 130/67 96 Weight Weight 93.485 kg I&O: 02/16/20 02/17/20 02/18/20 06:59 06:59 06:59 Intake Total 2800 900 Balance 2800 900 Result Diagrams: 02/18/20 04:33 02/18/20 04:33 Phys Exam - Physical Examination Constitutional: NAD (awake, alert) Neck: supple Respiratory: no wheezing, no rales, clear to auscultation bilateral Cardiovascular: RRR (systolic murmur c/w pt's hx) Gastrointestinal: soft, non-tender, positive bowel sounds Distended, mild fluid wave Musculoskeletal: no edema, pulses present Psychiatric: normal affect Skin: no rash Dx/Plan - Plan Plan: Acute encephalopathy likely 2/2 cirrhosis - Fall risk order, strict bedrest - Diet based on FURNITURE RESTORER swallow study recs - Decrease fz of lactulose with goal of 3 BMs per day - Diuretics were stopped yesterday d/t low BPs. Restart today. - U/A, UCx, BCx, UDS pending Possible LLL PNA - CXR showed possible LLL infiltrate - Rocephin and Azithro D/c Azithro today Switch Rocephin to oral abx HFpEF - Echo in 03/2019 shows EF 50-55%, aortic stenosis, tricuspid regurg Systolic murmur heard on exam - No mIVF - Monitor fluid status: strict I&Os AFib - Hx of AFib, not on anticoagulation per hospital records - POA - Pt on tele for monitoring T2DM - Chronic, POA - Increased Lantus to home 20u BID now that pt is eating - Mod and bedtime SSI - ACHS checks - Hypoglycemia protocol in place Dermal wounds - Sacral and R hip erythema - Wound care following, appreciate recs Hypothyroidism - MD aware - Restart home med Hx of PE - Per records on arrival - MD aware - No Ppx pending coag studies Dispo: inpt tele, discharge date nearing Diet: IVF: N/A DVT Ppx: None PCP: Nito Code: Full, per prior admission records Addendum - Attending - Attending Attestation Date/Time: 02/18/20 1123 I personally evaluated the patient and discussed the management with Dr. Aniyah Bowers. I agree with the History, Examination, Assessment and Plan documented above with any addition or exceptions noted below.
[2020-02-18] MEDS: Levothyroxine Sodium 112 MCG TAB PO SCH (05:56)
[2020-02-18] MEDS: HumaLOG 300 UNITS/3 ML VIAL SC PRN ×4 (06:18→21:14)
[2020-02-18] MEDS: Rifaximin 550 MG TAB PO SCH ×2 (09:10→21:13)
[2020-02-18] MEDS: Aspirin 81 mg Enteric Coated Tablet PO SCH (09:10)
[2020-02-18] MEDS: Potassium Chloride 20 MEQ TAB PO SCH ×2 (09:10→16:48)
[2020-02-18] MEDS: Insulin Glargine 20 UNITS in Pre-Filled Syringe 1 EACH SC SCH (09:18)
[2020-02-18] MEDS: Torsemide 20 MG TAB PO SCH ×2 (16:48→21:13)
[2020-02-18] MEDS: Spironolactone 25 MG TAB PO SCH (16:48)
[2020-02-18] MEDS ORDERED: Insulin Glargine 20 UNITS in Pre-Filled Syringe 1 EACH SC SCH (21:00)
[2020-02-18] MEDS: Melatonin 3 MG TAB PO PRN (21:13)
[2020-02-18] MEDS: Acetaminophen 500 MG TAB PO PRN (21:13)
[2020-02-19 05:14] LABS: #Basophils 0.1 thou/uL (0.0-0.2); #Eosinphils 0.1 thou/uL (0.0-0.7); #Lymphocytes 1.5 thou/uL (1.20-3.40); #Monocytes 0.6 thou/uL (0.11-0.59); #Neutrophils 4.1 thou/uL (1.40-6.50); %Basophils 0.8 % (0.0-1.0); %Eosinophils 1.4 % (0.0-10.0); %Lymphocytes 24.1 % (21.0-51.0); %Monocytes 8.9 % (0.0-10.0); %Neutrophils 64.8 % (42.0-75.0); Hemoglobin 9.7 g/dL (14.0-18.0); Mean Corpuscular HGB CONC 33.8 g/dL (32.0-36.0); Mean Corpuscular Hemoglobin 33.4 pg (27.0-31.0); Mean Corpuscular Volume 98.8 fL (78.0-98.0); Mean Platelet Volume 7.5 fL (7.4-10.4); Platelet Count 205 thou/uL (130-400); Red Blood Cell (RBC) Count 2.89 mill/uL (4.70-6.10); White Blood Cell (WBC) Count 6.3 thou/uL (4.8-10.8)
[2020-02-19 05:45] LABS: ALT (SGPT) 35 U/L (8-55); AST (SGOT) 30 U/L (5-34); Albumin 2.6 g/dL (3.4-4.8); Alkaline Phosphatase 234 U/L (40-110); Anion Gap 10 mmol/L (10-20); BUN (Urea Nitrogen) 21 mg/dL (8.4-25.7); Bilirubin, Total 1.5 mg/dL (0.2-1.2); Calc. Creatinine Clearance 94 mL/min (70-130); Calcium 8.5 mg/dL (7.8-10.44); Carbon Dioxide 30 mmol/L (23-31); Chloride 97 mmol/L (98-107); Estimated GFR-MDRD 89; Globulin 3.9 g/dL (2.4-3.5); Glucose 151 mg/dL (83-110); Potassium 3.8 mmol/L (3.5-5.1); Protein, Total 6.5 g/dL (5.8-8.1); Sodium 133 mmol/L (136-145)
[2020-02-19] MEDS: Levothyroxine Sodium 112 MCG TAB PO SCH (05:52)
--- NOTE | 2020-02-19 06:17 | PDOC.FM ---
- Subjective Subjective: Mr. Bell is doing well today and has no complaints. His abdomen is less distended than it was yesterday; much more like baseline. Previously, and at baseline, he was A&O x3, but this morning he was only oriented to self and month/year. It is unclear whether delirium could be playing a role in this. He had 2 reported BMs yesterday. - Objective Vital Signs & Weight: Vital Signs (12 hours) Temp Pulse Resp BP Pulse Ox 02/19/20 03:29 98.5 F 67 18 125/60 96 02/18/20 23:45 98.7 F 74 123/58 L 02/18/20 20:00 99.2 F 81 18 121/60 97 Weight Weight 96.615 kg I&O: 02/17/20 02/18/20 02/19/20 06:59 06:59 06:59 Intake Total 2800 900 1100 Balance 2800 900 1100 Result Diagrams: 02/19/20 04:24 02/19/20 04:24 Phys Exam - Physical Examination Constitutional: NAD (awake, alert) Neck: supple, full ROM Respiratory: no rales, clear to auscultation bilateral Cardiovascular: RRR (systolic murmur c/w pt's hx of ) Gastrointestinal: soft, non-tender, no distention, positive bowel sounds Musculoskeletal: no edema, pulses present Neurological: moves all 4 limbs Psychiatric: normal affect Deviation from normal: A&O x2 Skin: no rash Dx/Plan - Plan Plan: Acute encephalopathy likely 2/2 cirrhosis - Fall risk order, strict bedrest - Diet based on CUSTOMER SERVICE CASHIER swallow study recs - Titrate lactulose with goal of 3 BMs per day - UDS neg, UA neg, BCx NGTD x2 days - PT/OT/CM consulted for discharge planning Possible LLL PNA - CXR showed possible LLL infiltrate - Rocephin and Azithro discontinued on 02/17 d/t low suspicion for infxn Macrocytic anemia - Chronic, present on most admissions - B12, RBC folate, iron studies, and peripheral smear ordered HFpEF - Echo in 03/2019 shows EF 50-55%, aortic stenosis, tricuspid regurg Systolic murmur heard on exam - No mIVF - Monitor fluid status: strict I&Os AFib - Hx of AFib, not on anticoagulation per hospital records - POA - Pt on tele for monitoring - Has been in AFib in the 60-80s consistently T2DM - Chronic, POA - Increase Lantus to home 25u BID - Mod and bedtime SSI - ACHS checks - Hypoglycemia protocol in place Dermal wounds - Sacral and R hip erythema - Wound care following, appreciate recs Hypothyroidism - MD aware - Restart home med Hx of PE - Per records on arrival - MD aware - No Ppx pending coag studies Diet: IVF: N/A DVT Ppx: None PCP: Nito Code: Full, per prior admission records Dispo: inpt tele, suspect LOS >24h pending placement and continued improved mentation Addendum - Attending - Attending Attestation Date/Time: 02/19/20 1123 I personally evaluated the patient and discussed the management with Dr. Aniyah Bowers. I agree with the History, Examination, Assessment and Plan documented above with any addition or exceptions noted below.
[2020-02-19] MEDS: Rifaximin 550 MG TAB PO SCH ×2 (08:14→21:25)
[2020-02-19] MEDS: Potassium Chloride 20 MEQ TAB PO SCH ×2 (08:14→15:55)
[2020-02-19] MEDS: Spironolactone 25 MG TAB PO SCH ×2 (08:14→15:55)
[2020-02-19] MEDS: Aspirin 81 mg Enteric Coated Tablet PO SCH (08:14)
[2020-02-19] MEDS: Torsemide 20 MG TAB PO SCH ×3 (08:15→21:25)
[2020-02-19] MEDS: Insulin Glargine 20 UNITS in Pre-Filled Syringe 1 EACH SC SCH (08:37)
[2020-02-19 11:45] LABS: Iron 58 ug/dL (65-175); Iron Binding Capacity, Total 194 mcg/dL (261-462)
[2020-02-19 12:00] LABS: Ferritin 311.08 ng/mL (22-322)
[2020-02-19] MEDS: HumaLOG 300 UNITS/3 ML VIAL SC PRN ×3 (12:07→21:26)
[2020-02-19] MEDS ORDERED: Insulin Glargine 25 UNITS in Pre-Filled Syringe 1 EACH SC SCH (21:00)
[2020-02-19] MEDS: Acetaminophen 500 MG TAB PO PRN (21:25)
[2020-02-19] MEDS: Melatonin 3 MG TAB PO PRN (21:25)
[2020-02-19] MEDS: Insulin Glargine 25 UNITS in Pre-Filled Syringe 1 EACH SC SCH (21:26)
[2020-02-20 05:07] LABS: ALT (SGPT) 32 U/L (8-55); AST (SGOT) 32 U/L (5-34); Albumin 2.7 g/dL (3.4-4.8); Alkaline Phosphatase 259 U/L (40-110); Anion Gap 13 mmol/L (10-20); BUN (Urea Nitrogen) 20 mg/dL (8.4-25.7); Bilirubin, Total 1.4 mg/dL (0.2-1.2); Calc. Creatinine Clearance 90 mL/min (70-130); Calcium 8.8 mg/dL (7.8-10.44); Carbon Dioxide 28 mmol/L (23-31); Chloride 100 mmol/L (98-107); Estimated GFR-MDRD 85; Glucose 127 mg/dL (83-110); Potassium 3.7 mmol/L (3.5-5.1); Protein, Total 6.7 g/dL (5.8-8.1); Sodium 137 mmol/L (136-145)
[2020-02-20] MEDS: Levothyroxine Sodium 112 MCG TAB PO SCH (05:18)
[2020-02-20 05:49] LABS: Band 2 % (5-11); Eosinophils 2 % (0-10); Hemoglobin 10.3 g/dL (14.0-18.0); Lymphocytes 26 % (21-51); MDiff Complete? YES; Mean Corpuscular HGB CONC 35.5 g/dL (32.0-36.0); Mean Corpuscular Hemoglobin 35.3 pg (27.0-31.0); Mean Corpuscular Volume 99.3 fL (78.0-98.0); Monocytes 10 % (0-10); Myelocyte 1 % (0-0); Neutrophil 58 % (42-75); Platelet Count 198 thou/uL (130-400); RBC Distribution Width 16.1 % (11.5-14.5); Reactive Lymphocytes 1 % (0-10); Red Blood Cell (RBC) Count 2.92 mill/uL (4.70-6.10)
--- NOTE | 2020-02-20 05:59 | PDOC.FM ---
- Subjective Subjective: Mr. Bell is doing well this morning and is A&O x3. He has no complaints at this time and was sitting up in bed, eating comfortably. - Objective Vital Signs & Weight: Vital Signs (12 hours) Temp Pulse Resp BP Pulse Ox 02/20/20 04:00 98.1 F 66 18 116/59 L 96 02/19/20 20:00 97.7 F 63 18 102/52 L 96 Weight Weight 96.162 kg I&O: 02/18/20 02/19/20 02/20/20 06:59 06:59 06:59 Intake Total 900 1580 720 Balance 900 1580 720 Result Diagrams: 02/20/20 04:24 02/20/20 04:24 Phys Exam - Physical Examination Constitutional: NAD (sitting up comfortably eating, awake, alert) Neck: supple Respiratory: no rales, clear to auscultation bilateral Irregular rhythm c/w hx of AFib. Systolic murmur c/w pt's hx Tele has shown AFib in the 50-70s Gastrointestinal: soft, non-tender, positive bowel sounds Abdomen potentially more distended but possibly d/t positioning Musculoskeletal: no edema, pulses present Neurological: moves all 4 limbs Psychiatric: normal affect, A&O x 3 Skin: no rash Dx/Plan - Plan Plan: Acute encephalopathy likely 2/2 cirrhosis - Fall risk order, strict bedrest - Diet based on PAINTING SUPERVISOR swallow study recs - Titrate lactulose with goal of 3 BMs per day and A&O x3 mentation - Referral sent to [facility] rehab Macrocytic anemia - Chronic, present on most admissions - B12, RBC folate, iron studies ordered Consistent with anemia of chronic inflam. HFpEF - Echo in 03/2019 shows EF 50-55%, aortic stenosis, tricuspid regurg Systolic murmur heard on exam - No mIVF - Monitor fluid status: strict I&Os AFib - Hx of AFib, not on anticoagulation per hospital records - Pt on tele for monitoring - Has been in rate-controlled AFib T2DM - Chronic, POA - Increase Lantus to home 25u BID - Mod and bedtime SSI - ACHS checks - Hypoglycemia protocol in place Dermal wounds - Sacral and R hip erythema - Wound care following, appreciate recs Hypothyroidism - MD aware - Restart home med Hx of PE - Per records on arrival - MD aware - No Ppx pending coag studies Possible LLL PNA, resolved Diet: IVF: N/A DVT Ppx: None PCP: Nito Code: Full, per prior admission records Dispo: inpt tele, suspect LOS >24h pending placement and continued A&O x3 mentation Addendum - Attending - Attending Attestation Date/Time: 02/20/20 1131 I personally evaluated the patient and discussed the management with Dr. Aniyah Bowers. I agree with the History, Examination, Assessment and Plan documented above with any addition or exceptions noted below.
[2020-02-20] MEDS: Spironolactone 25 MG TAB PO SCH ×2 (09:24→17:29)
[2020-02-20] MEDS: Rifaximin 550 MG TAB PO SCH ×2 (09:24→20:57)
[2020-02-20] MEDS: Aspirin 81 mg Enteric Coated Tablet PO SCH (09:24)
[2020-02-20] MEDS: Potassium Chloride 20 MEQ TAB PO SCH ×2 (09:24→17:29)
[2020-02-20] MEDS: Torsemide 20 MG TAB PO SCH ×3 (09:24→20:57)
[2020-02-20] MEDS: Insulin Glargine 25 UNITS in Pre-Filled Syringe 1 EACH SC SCH (09:32)
[2020-02-20] MEDS: HumaLOG 300 UNITS/3 ML VIAL SC PRN ×2 (12:10→17:26)
[2020-02-20 12:39] LABS: Hematocrit 30.1 % (37.5-51.0); RBC Folate Test Component 977 ng/mL (>498)
[2020-02-20] MEDS: Insulin Glargine 30 UNITS in Pre-Filled Syringe 1 EACH SC SCH (20:57)
[2020-02-21 04:42] LABS: #Lymphocytes 1.4 thou/uL (1.20-3.40); #Monocytes 0.8 thou/uL (0.11-0.59); #Neutrophils 3.7 thou/uL (1.40-6.50); %Eosinophils 0.2 % (0.0-10.0); %Monocytes 12.9 % (0.0-10.0); %Neutrophils 62.9 % (42.0-75.0); Hemoglobin 11.2 g/dL (14.0-18.0); Mean Corpuscular HGB CONC 35.3 g/dL (32.0-36.0); Mean Corpuscular Hemoglobin 35.1 pg (27.0-31.0); Mean Corpuscular Volume 99.6 fL (78.0-98.0); Mean Platelet Volume 6.9 fL (7.4-10.4); Platelet Count 229 thou/uL (130-400); RBC Distribution Width 16.7 % (11.5-14.5); Red Blood Cell (RBC) Count 3.19 mill/uL (4.70-6.10); White Blood Cell (WBC) Count 5.9 thou/uL (4.8-10.8)
[2020-02-21] MEDS: Levothyroxine Sodium 112 MCG TAB PO SCH (04:58)
[2020-02-21 05:03] LABS: ALT (SGPT) 46 U/L (8-55); AST (SGOT) 41 U/L (5-34); Albumin 2.8 g/dL (3.4-4.8); Alkaline Phosphatase 310 U/L (40-110); Anion Gap 11 mmol/L (10-20); BUN (Urea Nitrogen) 16 mg/dL (8.4-25.7); Bilirubin, Total 1.3 mg/dL (0.2-1.2); Calc. Creatinine Clearance 82 mL/min (70-130); Calcium 9.1 mg/dL (7.8-10.44); Carbon Dioxide 32 mmol/L (23-31); Chloride 97 mmol/L (98-107); Estimated GFR-MDRD 77; Globulin 4.5 g/dL (2.4-3.5); Glucose 158 mg/dL (83-110); Potassium 3.2 mmol/L (3.5-5.1); Protein, Total 7.3 g/dL (5.8-8.1); Sodium 137 mmol/L (136-145)
--- NOTE | 2020-02-21 05:57 | PDOC.FM ---
- Subjective Subjective: Mr. Bell is doing well this morning and is A&O x3. His abdomen is less distended than when he came in. He denies abdominal pain, states he is feeling well, and has no concerns. - Objective Vital Signs & Weight: Vital Signs (12 hours) Temp Pulse Resp BP Pulse Ox 02/21/20 04:49 98.7 F 64 15 110/56 L 97 02/21/20 01:57 98 02/20/20 20:00 98 02/20/20 19:46 98.4 F 68 16 115/58 L 98 Weight Weight 96.252 kg I&O: 02/19/20 02/20/20 02/21/20 06:59 06:59 06:59 Intake Total 8607 993 5998 Balance 6019 720 4258 Result Diagrams: 02/21/20 04:21 02/21/20 04:21 Phys Exam - Physical Examination Constitutional: NAD (awake, alert) Neck: supple Respiratory: no rales, clear to auscultation bilateral AFib in 60-80s, systolic murmur c/w hx Gastrointestinal: soft, non-tender, no distention, positive bowel sounds Musculoskeletal: no edema, pulses present Neurological: non-focal, moves all 4 limbs Psychiatric: normal affect, A&O x 3 Skin: no rash Dx/Plan - Plan Plan: Acute encephalopathy likely 2/2 cirrhosis - Fall risk order, strict bedrest - Diet based on LINUX ADMIN ENGINEER swallow study recs - Titrate lactulose with goal of 3 BMs per day and A&O x3 mentation - Approved by [facility] rehab - A&O x3 today Macrocytic anemia - Chronic, present on most admissions - B12, RBC folate, iron studies ordered Consistent with anemia of chronic inflam. - No tx HFpEF - Echo in 03/2019 shows EF 50-55%, aortic stenosis, tricuspid regurg Systolic murmur heard on exam - No mIVF - Monitor fluid status: strict I&Os AFib - Hx of AFib, not on anticoagulation per hospital records - Pt on tele for monitoring - Has been in rate-controlled AFib T2DM - Chronic, POA - Increase Lantus - Mod and bedtime SSI - ACHS checks - Hypoglycemia protocol in place Dermal wounds - Sacral and R hip erythema - Wound care following, appreciate recs Hypothyroidism - aware - Restart home med Hx of PE - Per HH records on arrival - MD aware - No Ppx pending coag studies Possible LLL PNA, resolved Diet: IVF: N/A DVT Ppx: None PCP: Nito Code: Full, per prior admission records Dispo: inpt tele, likely discharge today pending continued A&O x3 mentation Addendum - Attending - Attending Attestation Date/Time: 02/21/20 9581 I personally evaluated the patient and discussed the management with Dr. Aniyah Bowers. I agree with the History, Examination, Assessment and Plan documented above with any addition or exceptions noted below.
[2020-02-21] MEDS: Spironolactone 25 MG TAB PO SCH ×2 (08:59→16:24)
[2020-02-21] MEDS: Aspirin 81 mg Enteric Coated Tablet PO SCH (08:59)
[2020-02-21] MEDS: Rifaximin 550 MG TAB PO SCH ×2 (08:59→22:16)
[2020-02-21] MEDS: Torsemide 20 MG TAB PO SCH ×3 (08:59→22:16)
[2020-02-21] MEDS: Potassium Chloride 20 MEQ TAB PO SCH ×2 (08:59→16:24)
[2020-02-21] MEDS: Insulin Glargine 30 UNITS in Pre-Filled Syringe 1 EACH SC SCH ×2 (09:01→22:16)
[2020-02-21] MEDS: HumaLOG 300 UNITS/3 ML VIAL SC PRN (18:09)
--- NOTE | 2020-02-22 05:37 | PDOC.FM ---
- Subjective Subjective: Mr. Bell is doing well this morning and has no complaints. He is oriented to self, year, and location although he thinks he is in the basement. He is not oriented to why he is here, which he has been oriented to in the past. He is much more awake today than in the past few mornings and is requesting someone to help him eat. - Objective Vital Signs & Weight: Vital Signs (12 hours) Temp Pulse Resp BP BP Pulse Ox 02/22/20 04:00 98.5 F 77 18 128/63 98 02/21/20 20:00 98 02/21/20 19:59 97.8 F 82 18 132/71 98 Weight Weight 96.252 kg I&O: 02/20/20 02/21/20 02/22/20 06:59 06:59 06:59 Intake Total 720 1820 480 Balance 720 1820 480 Result Diagrams: 02/22/20 09:20 02/22/20 10:20 Phys Exam - Physical Examination Constitutional: NAD (awake, alert) Neck: supple Respiratory: no wheezing, no rales, clear to auscultation bilateral Tele showing AFib at 60-80bpm. Systolic murmur c/w hx Gastrointestinal: soft, non-tender, no distention, positive bowel sounds Musculoskeletal: no edema, pulses present Neurological: non-focal, moves all 4 limbs Psychiatric: normal affect, A&O x 3 Dx/Plan - Plan Plan: Acute encephalopathy likely 2/2 cirrhosis - Fall risk order, strict bedrest - Diet based on TELEVISION ACTOR swallow study recs - Titrate lactulose with goal of 3+ BMs per day and A&O x3 mentation - A&O x3 today - Will have [facility] re-evaluate him today for hopeful repeat approval Macrocytic anemia - Chronic, present on most admissions - B12, RBC folate, iron studies ordered Consistent with anemia of chronic inflam. - No tx HFpEF - Echo in 03/2019 shows EF 50-55%, aortic stenosis, tricuspid regurg Systolic murmur heard on exam - No mIVF - Monitor fluid status: strict I&Os AFib - Hx of AFib, not on anticoagulation per hospital records - Pt on tele for monitoring - Has been in rate-controlled AFib T2DM - Chronic, POA - Increase Lantus - Mod and bedtime SSI - ACHS checks - Hypoglycemia protocol in place Dermal wounds - Sacral and R hip erythema - Wound care following, appreciate recs Hypothyroidism - MD aware - Restart home med Hx of PE - Per records on arrival - MD aware - No Ppx pending coag studies Possible LLL PNA, resolved Diet: IVF: N/A DVT Ppx: None PCP: Nito Code: Full, per prior admission records Dispo: inpt tele, likely discharge today pending continued A&O x3 mentation Addendum - Attending - Attending Attestation Date/Time: 02/22/20 1233 I personally evaluated the patient and discussed the management with Dr. Aniyah Bowers. I agree with the History, Examination, Assessment and Plan documented above with any addition or exceptions noted below. Mentation and alertness more clear today. Hoping to get him back to rehab today, will need to ensure that he is receiving his lactulose as prescribed to help prevent recurrent encephalopathy.
[2020-02-22] MEDS: Levothyroxine Sodium 112 MCG TAB PO SCH (06:11)
[2020-02-22] MEDS: Torsemide 20 MG TAB PO SCH ×2 (09:37→14:26)
[2020-02-22] MEDS: Aspirin 81 mg Enteric Coated Tablet PO SCH (09:37)
[2020-02-22] MEDS: Potassium Chloride 20 MEQ TAB PO SCH ×2 (09:37→17:33)
[2020-02-22] MEDS: Spironolactone 25 MG TAB PO SCH ×2 (09:37→17:34)
[2020-02-22] MEDS: Rifaximin 550 MG TAB PO SCH (09:37)
[2020-02-22] MEDS: Insulin Glargine 30 UNITS in Pre-Filled Syringe 1 EACH SC SCH (09:38)
[2020-02-22 10:03] LABS: Anisocytosis SLIGHT = 6-15 cells (100X) (0-5/hpf); Band 5 % (5-11); Eosinophils 1 % (0-10); Hemoglobin 12.7 g/dL (14.0-18.0); Lymphocytes 19 % (21-51); MDiff Complete? YES; Macrocytosis SLIGHT = 6-15 cells (100X) (0-5/hpf); Mean Corpuscular HGB CONC 34.7 g/dL (32.0-36.0); Mean Corpuscular Hemoglobin 34.9 pg (27.0-31.0); Monocytes 9 % (0-10); Neutrophil 66 % (42-75); Platelet Count 237 thou/uL (130-400); Platelet Morphology Comment Appears Adequate; Polychromasia SLIGHT = 2-3 cells (100X) (0-2/hpf); RBC Distribution Width 16.7 % (11.5-14.5); Red Blood Cell (RBC) Count 3.64 mill/uL (4.70-6.10); White Blood Cell (WBC) Count 6.7 thou/uL (4.8-10.8)
[2020-02-22 10:52] LABS: ALT (SGPT) 56 U/L (8-55); AST (SGOT) 49 U/L (5-34); Albumin 3.1 g/dL (3.4-4.8); Alkaline Phosphatase 362 U/L (40-110); Anion Gap 16 mmol/L (10-20); BUN (Urea Nitrogen) 17 mg/dL (8.4-25.7); Bilirubin, Total 1.7 mg/dL (0.2-1.2); Calc. Creatinine Clearance 61 mL/min (70-130); Calcium 9.3 mg/dL (7.8-10.44); Carbon Dioxide 28 mmol/L (23-31); Chloride 90 mmol/L (98-107); Estimated GFR-MDRD 58; Globulin 4.9 g/dL (2.4-3.5); Glucose 264 mg/dL (83-110); Potassium 3.4 mmol/L (3.5-5.1); Sodium 131 mmol/L (136-145)
[2020-02-22] MEDS: HumaLOG 300 UNITS/3 ML VIAL SC PRN (12:40)
[2020-02-22 13:25] VITALS: TEMP 98.4
[2020-02-22 16:20] VITALS: BP 119/58
--- NOTE | 2020-02-22 19:13 | DIS ---
DATE OF ADMISSION: 02/15/2020 DATE OF DISCHARGE: 02/22/2020 RESIDENT: Rosita Sears MD ADMITTING ATTENDING: Jefferson Leos MD DISCHARGE ATTENDING: Alon Palafox MD CONSULTS: None. PROCEDURES: None. PRIMARY DIAGNOSIS: Hepatic encephalopathy. SECONDARY DIAGNOSES: 1. Cirrhosis. 2. Hypertension. 3. Type 2 diabetes. DISCHARGE MEDICATIONS: 1. Lantus 30 units subcu b.i.d. (increased from previous dose). 2. Levothyroxine 112 mcg p.o. a.m. 3. Lactulose 60 g p.o. q.i.d. 4. Torsemide 20 mg p.o. t.i.d. 5. Aspirin 81 mg p.o. daily. 6. Spironolactone 25 mg p.o. b.i.d. before meals. 7. Rifaximin 550 mg p.o. b.i.d. 8. Metolazone 5 mg p.o. if the patient exceeds 210 pounds with . Otherwise, take Tuesday, Tuesday, and Tuesday. 9. Potassium chloride 20 mEq p.o. b.i.d. DISCONTINUED MEDICATIONS: Tresiba 20 units subcu b.i.d. HISTORY OF PRESENT ILLNESS/HOSPITAL COURSE: This is an 84-year-old male referred to the ED from [facility] for refusing spitting out his lactulose the past few days. He was seen with a similar presentation in May of 2019. On exam, he would open his eyes on command and have inappropriate responses to questions, but would not follow any other commands or withdraw from pain. GCS was now less than 8, therefore intubation was not indicated. On arrival, LFTs and T-bilirubin were elevated consistent with previous visits. Ammonia was 67, which was lower than in previous visits, but his son said anytime ammonia gets above 65, he becomes encephalopathic. Lactic acid was 2.5, which was suspected to be close to baseline secondary to his cirrhosis. Chest x-ray showed a possible left lower lobe infiltrate, so he was started on cefepime and vancomycin in the ED, which was promptly discontinued. Instead, he was started on Rocephin and azithromycin and a procalcitonin was ordered. An echo in March 2019 showed an EF of 50% to 55% with aortic stenosis and tricuspid regurgitation consistent with a strong systolic murmur heard on exam. He also has a history of atrial fibrillation, but is on anticoagulation per hospital records. He was sent to [facility] for monitoring and was consistently found to be in atrial fibrillation with heart rate in the 60s to 80s. He has a history of type 2 diabetes, so were ordered and his Lantus had to be gradually increased throughout his stay. Brain CT on arrival was negative. UA was negative, UDS was negative, blood culture were negative. He was started on lactulose 20 g q.2 hours with a goal of 2 to 3 bowel movements per day and improved mentation. Once this was achieved and he was A and O x3, the lactulose was spaced out to q.4 hours. When this was done, his mentation declined a little and he was A and O x2. His son states that in the past they have tried decreasing his home lactulose dose, but 60 g q.i.d. is what is required to keep him at his baseline mentation. As such, the lactulose frequency had to be increased again. Although, his mentation improved again with increased frequency of lactulose. He became very sedated during the day, which his son said was not normal for him. Melatonin was the only sedating medication on board, so it was discontinued and by the next day, he was awake, alert, and at baseline per his son. 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 DISPOSITION: Stable. DISCHARGE INSTRUCTIONS: 1. Location: [facility]. 2. Diet: Consistent carb and heart healthy with speech path recommendations. 3. Activity: As tolerated. 4. Followup: The patient is encouraged to follow up with his PCP, Dr. Beauchamp, in 7 to 10 days. Job ID: [id number]
== END 2020-02-22 17:56 | DRG 441 ==
LOC: ERS 14:23 → 2SE 16:40 → 2NO 02-18 11:03
PROVIDERS: ADMIT Family Medicine; ATTEND Family Medicine
DX: K72.90 Hepatic failure, unspecified without coma (principal); J18.9 Pneumonia, unspecified organism; G93.41 Metabolic encephalopathy; I48.20 Chronic atrial fibrillation, unspecified; I50.32 Chronic diastolic (congestive) heart failure; K74.60 Unspecified cirrhosis of liver; I11.0 Hypertensive heart disease with heart failure; J44.9 Chronic obstructive pulmonary disease, unspecified; Z96.651 Presence of right artificial knee joint; E11.9 Type 2 diabetes mellitus without complications; E03.9 Hypothyroidism, unspecified; R77.8 Other specified abnormalities of plasma proteins; L53.8 Other specified erythematous conditions; G47.33 Obstructive sleep apnea (adult) (pediatric); E89.0 Postprocedural hypothyroidism; D53.9 Nutritional anemia, unspecified; Z88.0 Allergy status to penicillin; Z79.899 Other long term (current) drug therapy; Z79.82 Long term (current) use of aspirin; Z90.49 Acquired absence of other specified parts of digestive tract; Z86.711 Personal history of pulmonary embolism; Z79.4 Long term (current) use of insulin
CPT/HCPCS: 36415; 36416; 70450; 71045; 80053; 80306; 81001; 82140; 82550; 82553; 82607; 82728; 82747; 83540; 83550; 83605; 83690; 83880; 84145; 84443; 84484; 85025; 85610; 85730; 87040; 93005; 96365; 96367; J0456; J0692; J0696; J1650; J1815; J3370; J3490; J7030; J7050

== ENCOUNTER 2020-05-30 04:05 | Observation (INO) | payer MEDICARE, BC ==
[2020-05-30 04:55] LABS: #Eosinphils 1.5 thou/uL (0.0-0.7); #Lymphocytes 1.2 thou/uL (1.20-3.40); #Monocytes 0.3 thou/uL (0.11-0.59); #Neutrophils 3.4 thou/uL (1.40-6.50); %Basophils 0.8 % (0.0-1.0); %Eosinophils 23.5 % (0.0-10.0); %Lymphocytes 18.6 % (21.0-51.0); %Monocytes 4.1 % (0.0-10.0); INR-International Normal Ratio 1.1; Mean Corpuscular HGB CONC 31.9 g/dL (32.0-36.0); Mean Corpuscular Hemoglobin 31.6 pg (27.0-31.0); Mean Corpuscular Volume 99.1 fL (78.0-98.0); Mean Platelet Volume 7.8 fL (7.4-10.4); Platelet Count 134 thou/uL (130-400); Prothrombin Time 14.5 sec (12.0-14.7); RBC Distribution Width 13.8 % (11.5-14.5); White Blood Cell (WBC) Count 6.5 thou/uL (4.8-10.8)
[2020-05-30] MEDS ORDERED: cefTRIAXone\\ROCEPHIN 1 GM VIAL ONE (04:55)
[2020-05-30 04:56] LABS: PTT 36.2 sec (22.9-36.1)
[2020-05-30 05:16] LABS: ALT (SGPT) 16 U/L (8-55); AST (SGOT) 15 U/L (5-34); Albumin 3.5 g/dL (3.4-4.8); Alkaline Phosphatase 153 U/L (40-110); Anion Gap 13 mmol/L (10-20); BUN (Urea Nitrogen) 13 mg/dL (8.4-25.7); Bilirubin, Total 1.2 mg/dL (0.2-1.2); Calc. Creatinine Clearance 0 mL/min (70-130); Calcium 9.4 mg/dL (7.8-10.44); Carbon Dioxide 28 mmol/L (23-31); Chloride 101 mmol/L (98-107); Globulin 3.8 g/dL (2.4-3.5); Glucose 258 mg/dL (83-110); Potassium 4.2 mmol/L (3.5-5.1); Protein, Total 7.3 g/dL (5.8-8.1); Sodium 138 mmol/L (136-145)
[2020-05-30] MEDS ORDERED: Azithromycin 500 MG VIAL ONE (05:40)
--- NOTE | 2020-05-30 05:51 | PDOC.FPRHP ---
- History of Present Illness Chief Complaint: SOB History of Present Illness: 85 y/o M presents today for one day of progressively worsening dyspnea. He says that he also has developed a cough with clear sputum in the past day. He denies any other symptoms. Denies sick contacts. He does not use O2 at home. Per report from ED, patient had stated that he has recently skipped a few doses of lactulose for his cirrhosis because he has been traveling and did not want to have to use the bathroom. Rest of ROS was negative. ED Course: linnea cano CXR - Allergies/Adverse Reactions Allergies Allergy/AdvReac Type Severity Reaction Status Date / Time Penicillins Allergy Hives Verified 02/16/20 00:33 - Home Medications Medication Instructions Recorded Confirmed Type Aspirin [Ecotrin Low Strength] 81 mg PO DAILY 05/16/19 05/30/20 History Lactulose 10 GM/15ML Oral Jenna 60 g PO QID 05/16/19 05/30/20 History [Lactulose] Rifaximin [Xifaxan] 550 mg PO BID 05/16/19 05/30/20 History Spironolactone 25 mg PO BID-AC 05/16/19 05/30/20 History Torsemide 20 mg PO TID 05/16/19 05/30/20 History Metolazone 5 mg PO ASDIR #14 tab 05/18/19 05/30/20 Rx Potassium Chloride [Klor-Con 10] 20 meq PO BID 30 Days #30 tab 06/12/19 05/30/20 Rx Insulin Glargine [Lantus Vial] 30 units SC BID #2 vial 02/20/20 Rx Levothyroxine Sodium [Synthroid] 112 mcg PO 0600 #30 tab 02/20/20 05/30/20 Rx - History PMHx: -Cirrhosis -CHF -IDDM -HTN -Afib -Hypothyroidism PSHx: -R humerus fx s/p repair, L shoulder fx s/p repair FHx: -non-contributory Social: -lives with and son at home -no current TAD - Review of Systems General: denies: fever/chills, fatigue ENT: denies: nasal congestion, rhinorrhea Respiratory: reports: cough, shortness of breath. denies: congestion Cardiovascular: denies: chest pain, palpitation Gastrointestinal: denies: nausea, vomiting, diarrhea, constipation, abdominal pain Genitourinary: denies: dysuria, polyuria Skin: denies: rashes Musculoskeletal: reports: swelling. denies: pain, tenderness, stiffness Neurological: denies: numbness, weakness - Vital signs BP: 149/69, MAP: 95, Pulse: 74, Resp: 20, Temp: 97.7 (Oral), O2 sat: 100 on (1L Oxygen), Time: 05/30/2020 05:50. - Physical Exam Constitutional: NAD, awake, alert and oriented, well developed HEENT: normocephalic and atraumatic, MMM Heart: RRR, normal S1/S2, other (3/6 systolic murmur heard over aortic valve) Lungs: CTAB, no respiratory distress, good air movement, no rales/rhonchi, no retractions, other (expiratory wheezing noted) Abdomen: soft, non-tender, bowel sounds present, other (distended, ascities noted, fluid wave noted) Musculoskeletal: ROM grossly normal Neurological: no focal deficit Skin: capillary refill <2 seconds Heme/Lymphatic: no unusual bruising or bleeding, no petechia Psychiatric: normal mood and affect, good judgment and insight, intact recent and remote memory FMR H&P: Results - Labs Result Diagrams: 05/30/20 04:40 05/30/20 04:40 Lab results: WBC 6.5 thou/uL (4.8-10.8) 05/30/20 04:40 Hgb 13.0 g/dL (14.0-18.0) L 05/30/20 04:40 Hct 40.7 % (42.0-52.0) L 05/30/20 04:40 MCV 99.1 fL (78.0-98.0) H 05/30/20 04:40 Plt Count 134 thou/uL (130-400) 05/30/20 04:40 Neutrophils % 53.0 % (42.0-75.0) 05/30/20 04:40 Sodium 138 mmol/L (136-145) 05/30/20 04:40 Potassium 4.2 mmol/L (3.5-5.1) 05/30/20 04:40 Chloride 101 mmol/L (98-107) 05/30/20 04:40 Carbon Dioxide 28 mmol/L (23-31) 05/30/20 04:40 BUN 13 mg/dL (8.4-25.7) 05/30/20 04:40 Creatinine 0.86 mg/dL (0.7-1.3) 05/30/20 04:40 Glucose 258 mg/dL (83-110) H 05/30/20 04:40 Calcium 9.4 mg/dL (7.8-10.44) 05/30/20 04:40 Total Bilirubin 1.2 mg/dL (0.2-1.2) 05/30/20 04:40 AST 15 U/L (5-34) 05/30/20 04:40 ALT 16 U/L (8-55) 05/30/20 04:40 Alkaline Phosphatase 153 U/L (40-110) H 05/30/20 04:40 Ammonia 92 umol/L (18-72) H 05/30/20 04:40 B-Natriuretic Peptide 37.6 pg/mL (0-100) 05/30/20 04:40 Serum Total Protein 7.3 g/dL (5.8-8.1) 05/30/20 04:40 Albumin 3.5 g/dL (3.4-4.8) 05/30/20 04:40 FMR H&P: A/P - Plan ##Acute Hypoxic Respiratory 2/2 CAP -on 2L O2 in ER saturating 98% -CXR done based on image review could be suggestive of RLL PNA, awaiting final read of report -s/p dose of azithro and rocephin in ED, procal ordered, continue with abx for now -COVID, flu ordered, pending -blood clx ordered in ER ##Cirrhosis with Hyperammonemia -ammonia 92 on admission -admitted to not being compliant with lactulose med at home in last few days -continue home medications -ascities noted on exam ##COVID PUI -see above Chronic Conditions: ##HFpEF: does not appear peripherally edematous on exam, last ECHO was in 2019, EF showed 50-55%, strict I/O, daily weights, fluid restriction ##Afib ##IDDM ##HTN ##Hypothyroidism -continue home medications CODE: FULL VTE: Lovenox DIET: CC PCP: Scamardo Dispo: admitted to medical FMR H&P: Upper Level - Plan Date/Time: 05/30/20 3588 I, Jefferson Jimenez PGY3, have evaluated this patient and agree with findings/plan as outlined by manager internet retails sales resident. Pertinent changes/additions are listed here. 85yo M with pmh of cirrhosis and HFpEF (last echo March 2019 EF 5-55%) presents with a few days of worsening SOB. No cough/congestion/CP/fevers. He does state he has not been taking his home lactulose last few days due to not wanting to use the bathroom frequently. On exam is intermittently tachypneic, was originally satting fine on RA but now requiring 1L O2. Inspiratory crackles on R lung base. irregular rhythm, regular rate, grade 2/6 systolic murmur. no LE edema. A/P Hypoxic respiratory failure 2/2 CAP A- pt is stable on 1L O2 and s/p rocephin and azithro. WBC wnl. No tachycardia or LE edema. BNP is 37. No hx of COPD and only 6pack year hx of smoking 75 years ago. CXR radiology read pending but is somewhat overexposed, shows RLL consolidation. P- continue rocephin and azithro -procal -covid pcr (on precautions until this results negative) -f/u on radiology read CXR Chronic liver cirrhosis with hyperammonemia A- Pt states he has been not taking his lactulose for a few days because he does not like to go to bathroom frequently. Ammonia 92. He does no seem to have any AMS. P- resume home lactulose Covid PUI -as above HFpEF -quiescent. BNP 37, Last echo 2019 EF50-55%. strict I/Os, daily weights, fluid restriction afib, DM2, HTN, hypothyroid, cirrhosis -home meds CODE: FULL dispo: inpt, expect > 2 midnights
[2020-05-30] MEDS ORDERED: Dextrose 5% in Water 1,000 ML IV PRN (06:16)
[2020-05-30] MEDS ORDERED: Acetaminophen 325 MG TAB PO PRN (06:16)
[2020-05-30] MEDS ORDERED: Insulin Regular 300 UNITS/3 ML VIAL SC PRN ×2 (06:16)
[2020-05-30] MEDS ORDERED: Acetaminophen 650 MG Suppository PR PRN (06:16)
[2020-05-30] MEDS ORDERED: Dextrose 50% Abboject 50 ML SYRINGE SLOW IVP PRN (06:16)
[2020-05-30] MEDS ORDERED: Metolazone 2.5 MG TAB PO SCH (07:15)
[2020-05-30] MEDS ORDERED: Spironolactone 25 MG TAB PO SCH (07:30)
--- NOTE | 2020-05-30 08:00 | RAD ---
Portable frontal chest radiograph: 05/30/2020 COMPARISON: 02/23/2020 HISTORY: Short of breath FINDINGS: Cardiac silhouette is prominent. There is hazy increased density in both lung bases with pa rtial obscuration of the hemidiaphragms, right greater than left. Mild asymmetric linear density noted in the right perihilar region. There is an old proximal left humerus fracture. Small right pleu ral effusion noted. IMPRESSION: Enlarged cardiac silhouette with patchy opacity in the lung bases and small right pleural effusion, suspicious for pulmonary edema. Infectious pneumonitis cannot be excluded. Follow-up imaging following treatment advised.
[2020-05-30] MEDS ORDERED: FLU VACC QS2020-21(65YR UP)/PF 240 MCG/0.7 ML SYRINGE IM ONE (08:30)
[2020-05-30] MEDS ORDERED: Enoxaparin Sodium 40 MG/0.4 ML SYRINGE SC SCH (09:00)
[2020-05-30] MEDS ORDERED: Rifaximin 550 MG TAB PO SCH (09:00)
[2020-05-30] MEDS ORDERED: Potassium Chloride 10 MEQ TAB PO SCH (09:00)
[2020-05-30] MEDS ORDERED: Non-Formulary Item 1 EACH (Lactulose 10 Gm/15ml Oral Sol 10 GM/15 ML Ml) PO SCH (09:00)
[2020-05-30] MEDS ORDERED: Insulin Glargine 30 UNITS in Pre-Filled Syringe 1 EACH SC SCH (09:00)
[2020-05-30] MEDS ORDERED: Aspirin 81 mg Enteric Coated Tablet PO SCH (09:00)
[2020-05-30] MEDS: Torsemide 20 MG TAB PO SCH ×3 (10:35→15:30)
[2020-05-30 11:04] VITALS: BMI 31.4
[2020-05-30 11:53] VITALS: BP 142/89; TEMP 98.1
[2020-05-30 11:56] LABS: SARS-CoV-2 NAA Rapid Test DETECTED (NotDetected)
[2020-05-31] MEDS ORDERED: Azithromycin 500 MG in Sodium Chloride 0.9% 250 ML 250 ML IVPB SCH ×2 (05:00→06:00)
[2020-05-31] MEDS ORDERED: cefTRIAXone\\ROCEPHIN 1 GM in Sodium Chloride 0.9% 100 ML IVPB SCH ×2 (05:00→07:00)
[2020-05-31] MEDS ORDERED: Levothyroxine Sodium 112 MCG TAB PO SCH (06:00)
--- NOTE | 2020-06-03 12:08 | DIS ---
DATE OF ADMISSION: 05/30/2020 DATE OF DISCHARGE: 05/30/2020 RESIDENT: Ranjith Bass MD ADMITTING ATTENDING: Raissa Sandhu MD DISCHARGE ATTENDING: Jefferson Leos MD CONSULTS: None. PROCEDURES: Chest x-ray on May 30 revealed enlarged cardiac silhouette with patchy opacities in lung bases and small right pleural effusion suspicious for pulmonary edema. PRIMARY DIAGNOSIS: COVID pneumonia. SECONDARY DIAGNOSES: 1. Cirrhosis. 2. Hyperammonemia. DISCHARGE MEDICATIONS: 1. Lactulose 60 g p.o. q.i.d. 2. Furosemide 20 mg p.o. t.i.d. 3. Aspirin 81 mg p.o. daily. 4. Spironolactone 25 mg p.o. b.i.d. 5. Rifaximin 550 mg p.o. b.i.d. 6. Metolazone 5 mg p.o. as directed. 7. Potassium chloride 20 mEq p.o. b.i.d. 8. 30 units Lantus subcu b.i.d. 9. Levothyroxine 112 mcg p.o. in the morning. DISCONTINUED MEDICATIONS: None. HISTORY OF PRESENT ILLNESS AND HOSPITAL COURSE: Mr. Bell is an 85-year-old gentleman with a history of cirrhosis, who presented for 1 day of progressively worsening dyspnea. The patient explains he felt unwell for the past few days and woke up this morning feeling short of breath. The patient does not use O2 at home. The patient received azithromycin and Rocephin in the ED. Over the course of the morning, the patient did not require any oxygen and was saturating 97% on room air. His COVID test came back positive. The patient was afebrile and had a decreased white count. Since the patient no longer had oxygen requirement, he was discharged home and given instructions to self isolate from his family for the next 14 days. DISPOSITION: Stable. DISCHARGE INSTRUCTIONS: 1. Location: Home. 2. Diet: Regular. 3. Activity: As tolerated. 4. Followup: Follow up with primary care doctor as needed. Job ID: [id number]
== END 2020-05-30 16:01 | disposition home or self-care (01) ==
LOC: ERS 04:05 → T4-B 07:07 → INTOOBSV 07:07
PROVIDERS: ADMIT Student in an Organized Health Care Education/Training Program; ATTEND Student in an Organized Health Care Education/Training Program
DX: U07.1 COVID-19 (principal); J12.82 Pneumonia due to coronavirus disease 2019; J96.01 Acute respiratory failure with hypoxia; K74.60 Unspecified cirrhosis of liver; E72.20 Disorder of urea cycle metabolism, unspecified; I11.0 Hypertensive heart disease with heart failure; I50.30 Unspecified diastolic (congestive) heart failure; I48.91 Unspecified atrial fibrillation; E11.9 Type 2 diabetes mellitus without complications; E03.9 Hypothyroidism, unspecified; Z79.4 Long term (current) use of insulin; Z79.82 Long term (current) use of aspirin; Z79.899 Other long term (current) drug therapy; Z88.0 Allergy status to penicillin
CPT/HCPCS: 0240U; 71045; 80053; 82140; 83735; 83880; 84145; 84484; 85025; 85610; 85730; 87040; 87149 ×2; 93005; 96365; 96367; 96372; 99285; G0378; 36415; J0456; J0696; J1650; J1815

== ENCOUNTER 2020-06-17 18:54 | Emergency (ER) | payer MEDICARE, BC ==
[~2020-06-17 18:54] MED LIST: Iopamidol-370 76% 500 ML 1 ML ONE
[2020-06-17] MEDS ORDERED: Albuterol 200 PUFF (6.7GM INHALER) ONE (19:29)
[2020-06-17] MEDS ORDERED: Dexamethasone 10 MG/ML VIAL ONE (19:29)
--- NOTE | 2020-06-17 19:53 | RAD ---
Chest AP view INDICATION: Shortness of breath history of Covid positive diagnosis COMPARISON: Prior exam dated May 30, 2020 FINDINGS: Lungs: The right aspect of the right lower lobe is not included in the [id number]. Cardiac silhouette: There is stable moderate cardiomegaly. Pulmonary vasculature: Normal Pleural spaces: Right costophrenic angle is excluded. Upper abdomen: No abnormality seen. Osseous structures: There is healed fracture deformity involving the proximal left humerus. There is diffuse osteopenia. Additional findings: None. IMPRESSION: Limitations to the exam. Stable cardiomegaly.
[2020-06-17 20:04] LABS: #Eosinphils 1.5 thou/uL (0.0-0.7); #Lymphocytes 1.2 thou/uL (1.20-3.40); #Monocytes 0.2 thou/uL (0.11-0.59); #Neutrophils 3.4 thou/uL (1.40-6.50); %Basophils 0.1 % (0.0-1.0); %Eosinophils 23.1 % (0.0-10.0); %Lymphocytes 18.5 % (21.0-51.0); %Monocytes 3.8 % (0.0-10.0); %Neutrophils 54.5 % (42.0-75.0); Hemoglobin 12.7 g/dL (14.0-18.0); Mean Corpuscular HGB CONC 33.1 g/dL (32.0-36.0); Mean Corpuscular Volume 99.7 fL (78.0-98.0); Mean Platelet Volume 7.8 fL (7.4-10.4); Platelet Count 122 thou/uL (130-400); RBC Distribution Width 14.2 % (11.5-14.5); Red Blood Cell (RBC) Count 3.86 mill/uL (4.70-6.10); White Blood Cell (WBC) Count 6.3 thou/uL (4.8-10.8)
[2020-06-17 20:24] LABS: ALT (SGPT) 12 U/L (8-55); AST (SGOT) 12 U/L (5-34); Albumin 3.4 g/dL (3.4-4.8); Alkaline Phosphatase 174 U/L (40-110); Anion Gap 10 mmol/L (10-20); BUN (Urea Nitrogen) 14 mg/dL (8.4-25.7); Bilirubin, Total 1.1 mg/dL (0.2-1.2); Calc. Creatinine Clearance 0 mL/min (70-130); Calcium 9.1 mg/dL (7.8-10.44); Carbon Dioxide 31 mmol/L (23-31); Chloride 101 mmol/L (98-107); Glucose 226 mg/dL (83-110); Potassium 4.1 mmol/L (3.5-5.1); Protein, Total 7.4 g/dL (5.8-8.1); Sodium 138 mmol/L (136-145)
--- NOTE | 2020-06-17 20:30 | CT ---
CTA Angio Chest W WO Con 06/17/2020 8:10 PM Indication: 85-year-old male with history of Covid positive status, lethargy and shortness of breath Technique: Multiple CTA images were obtained of the thorax with IV contrast. 3-D rendering: MIP maki nstructed images were created and reviewed. Comparison: Right shoulder radiograph dated December 09, 2019 and a 2 view of the chest dated November 242018. CT the abdomen with and without contrast dated August 04, 2006 Findings: Pulmonary arteries: No central or segmental pulmonary embolus is evident. Heart and Aorta: There is moderate cardiomegaly with small pericardial effusion. There areas valvula r calcifications. There is severe calcifications involving the thoracic aorta and coronary arteries. Mediastinum:Normal appearing. No enlarged lymph nodes. Lungs:There is bibasilar atelectasis. Pleural space: There is moderate right and small left pleural effusion Upper Abdomen: There is reflux of contrast within the hepatic veins and IVC. There is cirrhotic morp hology of the liver. There is a 3 cm exophytic cyst off the superior pole of the left kidney. There is a 1.1 cm left adrenal nodule. This is stable since 2006 is likely reflective of a tiny adenoma. Osseous Structures: There is stable mild compression abnormality involving T6. There is a mild super ior endplate compression abnormality of T1 that is stable to a comparison CT dated 06/11/2019. There is incompletely healed right proximal humerus fracture. Soft tissues:No abnormality. Other findings:None. Impression: No central or segmental pulmonary embolus. Moderate cardiomegaly with bilateral pleural effusion and reflux of contrast within the IVC is suspic ious for mild/moderate CHF. Cirrhotic morphology of the liver. Left renal cyst. Left adrenal adenoma. Stable compression abnormalities involving T6 and T1. Incomplete healed proximal right humerus fractu re.
== END 2020-06-17 21:28 | disposition home or self-care (01) ==
LOC: ERS 18:54
DX: U07.1 COVID-19 (principal); I11.0 Hypertensive heart disease with heart failure; I50.9 Heart failure, unspecified; I48.91 Unspecified atrial fibrillation; E11.9 Type 2 diabetes mellitus without complications; E03.9 Hypothyroidism, unspecified; Z86.711 Personal history of pulmonary embolism; Z87.891 Personal history of nicotine dependence; Z79.82 Long term (current) use of aspirin; Z79.899 Other long term (current) drug therapy; Z79.4 Long term (current) use of insulin
CPT/HCPCS: 36415; 71045; 71275; 80053; 83880; 84484; 85025; 93005; 96374; J1100; Q9967

== ENCOUNTER 2020-08-30 02:52 | Emergency (ER) | payer MEDICARE, BC ==
[2020-08-30 03:33] LABS: Hemoglobin 13.1 g/dL (14.0-18.0); Mean Corpuscular HGB CONC 32.1 g/dL (32.0-36.0); Mean Corpuscular Hemoglobin 32.6 pg (27.0-31.0); RBC Distribution Width 15.4 % (11.5-14.5); Red Blood Cell (RBC) Count 4.01 mill/uL (4.70-6.10); White Blood Cell (WBC) Count 5.8 thou/uL (4.8-10.8)
[2020-08-30 03:47] LABS: #Basophils 0.1 thou/uL (0.0-0.2); #Eosinphils 1.1 thou/uL (0.0-0.7); #Lymphocytes 1.1 thou/uL (1.20-3.40); #Monocytes 0.3 thou/uL (0.11-0.59); #Neutrophils 3.3 thou/uL (1.40-6.50); %Basophils 1.2 % (0.0-1.0); %Eosinophils 18.9 % (0.0-10.0); %Lymphocytes 19.3 % (21.0-51.0); %Monocytes 4.3 % (0.0-10.0); %Neutrophils 56.3 % (42.0-75.0); Mean Platelet Volume 8.1 fL (7.4-10.4); Platelet Count 117 thou/uL (130-400); Platelet Morphology Comment Appears Decreased
[2020-08-30 03:58] LABS: ALT (SGPT) 19 U/L (8-55); AST (SGOT) 17 U/L (5-34); Albumin 3.6 g/dL (3.4-4.8); Alkaline Phosphatase 175 U/L (40-110); Anion Gap 11 mmol/L (10-20); BUN (Urea Nitrogen) 10 mg/dL (8.4-25.7); Calc. Creatinine Clearance 0 mL/min (70-130); Calcium 9.4 mg/dL (7.8-10.44); Carbon Dioxide 31 mmol/L (23-31); Chloride 100 mmol/L (98-107); Globulin 3.7 g/dL (2.4-3.5); Glucose 446 mg/dL (83-110); Potassium 4.6 mmol/L (3.5-5.1); Protein, Total 7.3 g/dL (5.8-8.1); Sodium 137 mmol/L (136-145)
[2020-08-30] MEDS ORDERED: Insulin Regular 300 UNITS/3 ML VIAL ONE (04:46)
== END 2020-08-30 06:40 | disposition home or self-care (01) ==
LOC: ERS 02:52
DX: E11.65 Type 2 diabetes mellitus with hyperglycemia (principal); R06.00 Dyspnea, unspecified; E11.9 Type 2 diabetes mellitus without complications; I11.0 Hypertensive heart disease with heart failure; I50.9 Heart failure, unspecified; E03.9 Hypothyroidism, unspecified; I48.91 Unspecified atrial fibrillation; K74.60 Unspecified cirrhosis of liver; Z87.891 Personal history of nicotine dependence; Z79.4 Long term (current) use of insulin; Z79.82 Long term (current) use of aspirin; Z79.899 Other long term (current) drug therapy
CPT/HCPCS: 36415; 36416; 71045; 80053; 83880; 84484; 85025; 93005; 96374; J1815

== ENCOUNTER 2020-09-10 14:09 | Inpatient (IN) | payer MEDICARE, BC ==
[~2020-09-10 14:09] MED LIST changes: -Iopamidol-370 76% 500 ML 1 ML ONE; +Metolazone 2.5 MG TAB PO PRN
[2020-09-10 14:59] LABS: #Basophils 0.1 thou/uL (0.0-0.2); #Lymphocytes 0.9 thou/uL (1.20-3.40); #Monocytes 0.3 thou/uL (0.11-0.59); #Neutrophils 3.4 thou/uL (1.40-6.50); %Basophils 0.9 % (0.0-1.0); %Eosinophils 17.5 % (0.0-10.0); %Lymphocytes 15.7 % (21.0-51.0); %Monocytes 5.6 % (0.0-10.0); %Neutrophils 60.3 % (42.0-75.0); Mean Corpuscular HGB CONC 31.1 g/dL (32.0-36.0); Mean Corpuscular Hemoglobin 32.1 pg (27.0-31.0); Mean Platelet Volume 8.2 fL (7.4-10.4); Platelet Count 121 thou/uL (130-400); RBC Distribution Width 15.3 % (11.5-14.5); Red Blood Cell (RBC) Count 4.06 mill/uL (4.70-6.10); White Blood Cell (WBC) Count 5.7 thou/uL (4.8-10.8)
[2020-09-10 15:29] LABS: ALT (SGPT) 13 U/L (8-55); AST (SGOT) 13 U/L (5-34); Albumin 3.5 g/dL (3.4-4.8); Alkaline Phosphatase 164 U/L (40-110); Anion Gap 12 mmol/L (10-20); BUN (Urea Nitrogen) 12 mg/dL (8.4-25.7); Bilirubin, Total 1.5 mg/dL (0.2-1.2); Calc. Creatinine Clearance 0 mL/min (70-130); Calcium 9.6 mg/dL (7.8-10.44); Carbon Dioxide 32 mmol/L (23-31); Chloride 96 mmol/L (98-107); Glucose 360 mg/dL (83-110); Potassium 4.1 mmol/L (3.5-5.1); Protein, Total 7.5 g/dL (5.8-8.1); Sodium 136 mmol/L (136-145)
[2020-09-10] MEDS ORDERED: Furosemide 40 MG/4 ML VIAL ONE (15:52)
[2020-09-10 18:07] LABS: Troponin I 0.018 ng/mL (< 0.028)
[2020-09-10 18:27] VITALS: BMI 32.4
[2020-09-10] MEDS ORDERED: Ondansetron ODT 4 MG TAB PO PRN (18:45)
[2020-09-10] MEDS ORDERED: Ondansetron PF 4 MG/2 ML Vial IVP PRN (18:45)
[2020-09-10] MEDS ORDERED: Dextrose 5% in Water 1,000 ML IV PRN (18:45)
[2020-09-10] MEDS ORDERED: Dextrose 50% Abboject 50 ML SYRINGE SLOW IVP PRN (18:45)
[2020-09-10] MEDS ORDERED: HumaLOG 300 UNITS/3 ML VIAL SC PRN (18:48)
[2020-09-10] MEDS ORDERED: Acetaminophen 500 MG TAB PO PRN (18:55)
[2020-09-10 20:33] LABS: Troponin I 0.015 ng/mL (< 0.028)
[2020-09-10] MEDS: Rifaximin 550 MG TAB PO SCH (20:57)
[2020-09-10] MEDS: Potassium Chloride 10 MEQ TAB PO SCH (20:57)
[2020-09-10] MEDS: Lantus 1000 UNITS/10 ML VIAL SC SCH (21:00)
[2020-09-11 01:08] LABS: SARS-CoV-2 PCR by NAA Not Detected (NotDetected)
[2020-09-11] MEDS: Furosemide 40 MG/4 ML VIAL SLOW IVP SCH ×2 (05:45→14:57)
[2020-09-11] MEDS: Levothyroxine Sodium 112 MCG TAB PO SCH (05:45)
[2020-09-11] MEDS: HumaLOG 300 UNITS/3 ML VIAL SC PRN ×2 (05:49→17:53)
[2020-09-11] MEDS ORDERED: Spironolactone 25 MG TAB PO SCH (07:30)
[2020-09-11] MEDS: Enoxaparin Sodium 40 MG/0.4 ML SYRINGE SC SCH (08:44)
[2020-09-11] MEDS: Potassium Chloride 10 MEQ TAB PO SCH ×2 (08:44→21:28)
[2020-09-11] MEDS: Rifaximin 550 MG TAB PO SCH ×2 (08:44→21:28)
[2020-09-11] MEDS: Aspirin 81 mg Enteric Coated Tablet PO SCH (08:44)
[2020-09-11] MEDS: Lantus 1000 UNITS/10 ML VIAL SC SCH ×2 (08:45→21:29)
[2020-09-11] MEDS ORDERED: Nystatin Powder 15 GM BOT TOP SCH (10:45)
[2020-09-11 12:45] LABS: #Eosinphils 1.2 thou/uL (0.0-0.7); #Lymphocytes 1.1 thou/uL (1.20-3.40); #Monocytes 0.4 thou/uL (0.11-0.59); #Neutrophils 4.8 thou/uL (1.40-6.50); %Basophils 0.5 % (0.0-1.0); %Eosinophils 15.3 % (0.0-10.0); %Lymphocytes 15.1 % (21.0-51.0); %Monocytes 4.8 % (0.0-10.0); %Neutrophils 64.3 % (42.0-75.0); Hemoglobin 13.2 g/dL (14.0-18.0); Mean Corpuscular HGB CONC 32.9 g/dL (32.0-36.0); Mean Corpuscular Hemoglobin 33.8 pg (27.0-31.0); Platelet Count 125 thou/uL (130-400); RBC Distribution Width 15.1 % (11.5-14.5); Red Blood Cell (RBC) Count 3.89 mill/uL (4.70-6.10); White Blood Cell (WBC) Count 7.5 thou/uL (4.8-10.8)
[2020-09-11 13:17] LABS: ALT (SGPT) 16 U/L (8-55); AST (SGOT) 22 U/L (5-34); Albumin 3.5 g/dL (3.4-4.8); Alkaline Phosphatase 187 U/L (40-110); Anion Gap 15 mmol/L (10-20); BUN (Urea Nitrogen) 10 mg/dL (8.4-25.7); Bilirubin, Total 1.7 mg/dL (0.2-1.2); Calc. Creatinine Clearance 80 mL/min (70-130); Calcium 9.3 mg/dL (7.8-10.44); Carbon Dioxide 30 mmol/L (23-31); Chloride 97 mmol/L (98-107); Globulin 4.1 g/dL (2.4-3.5); Glucose 295 mg/dL (83-110); Potassium 3.9 mmol/L (3.5-5.1); Protein, Total 7.6 g/dL (5.8-8.1); Sodium 138 mmol/L (136-145)
[2020-09-11] MEDS: Nystatin Powder 15 GM BOT TOP SCH ×2 (14:57→21:28)
[2020-09-11] MEDS: Spironolactone 25 MG TAB PO SCH (17:50)
[2020-09-12 05:07] LABS: #Eosinphils 1.1 thou/uL (0.0-0.7); #Monocytes 0.4 thou/uL (0.11-0.59); #Neutrophils 4.1 thou/uL (1.40-6.50); %Basophils 0.6 % (0.0-1.0); %Eosinophils 16.5 % (0.0-10.0); %Lymphocytes 14.9 % (21.0-51.0); %Monocytes 6.5 % (0.0-10.0); %Neutrophils 61.5 % (42.0-75.0); Hemoglobin 13.2 g/dL (14.0-18.0); Mean Corpuscular HGB CONC 32.8 g/dL (32.0-36.0); Mean Corpuscular Hemoglobin 33.9 pg (27.0-31.0); Mean Platelet Volume 7.9 fL (7.4-10.4); Platelet Count 115 thou/uL (130-400); RBC Distribution Width 14.9 % (11.5-14.5); White Blood Cell (WBC) Count 6.7 thou/uL (4.8-10.8)
[2020-09-12 05:16] LABS: ALT (SGPT) 21 U/L (8-55); AST (SGOT) 26 U/L (5-34); Albumin 3.4 g/dL (3.4-4.8); Alkaline Phosphatase 201 U/L (40-110); BUN (Urea Nitrogen) 9 mg/dL (8.4-25.7); Bilirubin, Total 1.6 mg/dL (0.2-1.2); Calc. Creatinine Clearance 87 mL/min (70-130); Calcium 9.5 mg/dL (7.8-10.44); Globulin 3.9 g/dL (2.4-3.5); Glucose 167 mg/dL (83-110); Protein, Total 7.3 g/dL (5.8-8.1)
[2020-09-12 05:27] LABS: Chloride 96 mmol/L (98-107); Potassium 3.9 mmol/L (3.5-5.1); Sodium 140 mmol/L (136-145)
[2020-09-12 05:30] LABS: Anion Gap 13 mmol/L (10-20); Carbon Dioxide 35 mmol/L (23-31)
[2020-09-12] MEDS: Levothyroxine Sodium 112 MCG TAB PO SCH (06:20)
[2020-09-12] MEDS: Furosemide 40 MG/4 ML VIAL SLOW IVP SCH ×2 (06:20→14:32)
[2020-09-12] MEDS: Lantus 1000 UNITS/10 ML VIAL SC SCH ×2 (08:37→20:26)
[2020-09-12] MEDS: Spironolactone 25 MG TAB PO SCH ×2 (08:38→16:26)
[2020-09-12] MEDS: Aspirin 81 mg Enteric Coated Tablet PO SCH (08:38)
[2020-09-12] MEDS: Rifaximin 550 MG TAB PO SCH ×2 (08:39→19:52)
[2020-09-12] MEDS: Potassium Chloride 10 MEQ TAB PO SCH ×2 (08:39→19:52)
[2020-09-12] MEDS: Enoxaparin Sodium 40 MG/0.4 ML SYRINGE SC SCH (08:39)
[2020-09-12] MEDS: Nystatin Powder 15 GM BOT TOP SCH ×3 (08:40→19:53)
[2020-09-13 05:07] LABS: #Eosinphils 1.3 thou/uL (0.0-0.7); #Monocytes 0.4 thou/uL (0.11-0.59); #Neutrophils 4.5 thou/uL (1.40-6.50); %Basophils 0.3 % (0.0-1.0); %Eosinophils 18.2 % (0.0-10.0); %Lymphocytes 13.6 % (21.0-51.0); %Neutrophils 61.9 % (42.0-75.0); Hemoglobin 12.4 g/dL (14.0-18.0); Mean Corpuscular HGB CONC 32.9 g/dL (32.0-36.0); Mean Corpuscular Hemoglobin 34.3 pg (27.0-31.0); Mean Platelet Volume 8.1 fL (7.4-10.4); Platelet Count 109 thou/uL (130-400); Red Blood Cell (RBC) Count 3.61 mill/uL (4.70-6.10); White Blood Cell (WBC) Count 7.3 thou/uL (4.8-10.8)
[2020-09-13 05:16] LABS: ALT (SGPT) 26 U/L (8-55); AST (SGOT) 29 U/L (5-34); Albumin 3.4 g/dL (3.4-4.8); Alkaline Phosphatase 201 U/L (40-110); BUN (Urea Nitrogen) 10 mg/dL (8.4-25.7); Bilirubin, Total 1.8 mg/dL (0.2-1.2); Calc. Creatinine Clearance 84 mL/min (70-130); Calcium 9.4 mg/dL (7.8-10.44); Globulin 3.9 g/dL (2.4-3.5); Glucose 187 mg/dL (83-110); Protein, Total 7.3 g/dL (5.8-8.1)
[2020-09-13 05:25] LABS: Anion Gap 19 mmol/L (10-20); Carbon Dioxide 33 mmol/L (23-31); Chloride 94 mmol/L (98-107); Sodium 142 mmol/L (136-145)
[2020-09-13] MEDS: Furosemide 40 MG/4 ML VIAL SLOW IVP SCH ×2 (05:25→14:53)
[2020-09-13] MEDS: Levothyroxine Sodium 112 MCG TAB PO SCH (05:25)
[2020-09-13] MEDS: Aspirin 81 mg Enteric Coated Tablet PO SCH (09:26)
[2020-09-13] MEDS: Rifaximin 550 MG TAB PO SCH ×2 (09:26→21:12)
[2020-09-13] MEDS: Potassium Chloride 10 MEQ TAB PO SCH ×2 (09:26→21:12)
[2020-09-13] MEDS: Spironolactone 25 MG TAB PO SCH ×2 (09:26→15:03)
[2020-09-13] MEDS: Enoxaparin Sodium 40 MG/0.4 ML SYRINGE SC SCH (09:26)
[2020-09-13] MEDS: Lantus 1000 UNITS/10 ML VIAL SC SCH ×2 (09:27→21:14)
[2020-09-13] MEDS: Nystatin Powder 15 GM BOT TOP SCH ×3 (09:28→21:12)
[2020-09-13 16:18] LABS: Clarity Turbid (Clear); Leukocyte Unable to Interpret Leu/uL (Negative); Nitrite Unable to Interpret (Negative); Protein, Urine (Dipstick) Unable to Interpret mg/dL (Neg-Trace); Specific Gravity, Urine 1.013 (1.002-1.036); pH, Urine 5.5 (5.0-9.0)
[2020-09-13 16:19] LABS: Bacteria/HPF Rare-Few HPF (None Seen); Bilirubin Unable to Interpret (Negative); Blood, Urine Unable to Interpret (Negative); Glucose, Urine (Dipstick) Unable to Interpret mg/dL (Negative); Ketone, Urine Unable to Interpret mg/dL (Negative); RBC/HPF Greater than 50 HPF (0-3); Squamous Epithelial None Seen HPF (0-3); Urobilinogen UNABLE TO INTERPRET mg/dL (Less than 2); WBC/HPF 0-3 HPF (0-3)
[2020-09-14] MEDS: Levothyroxine Sodium 112 MCG TAB PO SCH (05:08)
[2020-09-14] MEDS: Furosemide 40 MG/4 ML VIAL SLOW IVP SCH ×2 (05:08→14:44)
[2020-09-14 05:43] LABS: Hemoglobin 14.1 g/dL (14.0-18.0); Mean Corpuscular HGB CONC 32.4 g/dL (32.0-36.0); Mean Corpuscular Hemoglobin 34.2 pg (27.0-31.0); Mean Platelet Volume 8.1 fL (7.4-10.4); Platelet Count 80 thou/uL (130-400); Red Blood Cell (RBC) Count 4.13 mill/uL (4.70-6.10); White Blood Cell (WBC) Count 5.9 thou/uL (4.8-10.8)
[2020-09-14 06:17] LABS: #Eosinphils 1.1 thou/uL (0.0-0.7); #Lymphocytes 1.1 thou/uL (1.20-3.40); #Monocytes 0.4 thou/uL (0.11-0.59); #Neutrophils 3.3 thou/uL (1.40-6.50); %Basophils 0.6 % (0.0-1.0); %Lymphocytes 18.1 % (21.0-51.0); %Monocytes 7.1 % (0.0-10.0); %Neutrophils 56.3 % (42.0-75.0); Platelet Morphology Comment Appears Decreased
[2020-09-14 06:25] LABS: AST (SGOT) 25 U/L (5-34); Albumin 3.2 g/dL (3.4-4.8); Alkaline Phosphatase 196 U/L (40-110); Anion Gap 15 mmol/L (10-20); BUN (Urea Nitrogen) 10 mg/dL (8.4-25.7); Bilirubin, Total 1.7 mg/dL (0.2-1.2); Calc. Creatinine Clearance 88 mL/min (70-130); Calcium 9.6 mg/dL (7.8-10.44); Carbon Dioxide 31 mmol/L (23-31); Chloride 99 mmol/L (98-107); Glucose 160 mg/dL (83-110); Potassium 4.3 mmol/L (3.5-5.1); Protein, Total 7.2 g/dL (5.8-8.1); Sodium 141 mmol/L (136-145)
[2020-09-14 06:30] LABS: ALT (SGPT) 22 U/L (8-55); CK (CPK) 34 U/L (30-200)
[2020-09-14] MEDS: Nystatin Powder 15 GM BOT TOP SCH ×3 (09:15→20:57)
[2020-09-14] MEDS: Aspirin 81 mg Enteric Coated Tablet PO SCH (09:15)
[2020-09-14] MEDS: Enoxaparin Sodium 40 MG/0.4 ML SYRINGE SC SCH (09:15)
[2020-09-14] MEDS: Spironolactone 25 MG TAB PO SCH ×2 (09:15→17:37)
[2020-09-14] MEDS: Rifaximin 550 MG TAB PO SCH ×2 (09:15→20:56)
[2020-09-14] MEDS: Potassium Chloride 10 MEQ TAB PO SCH ×2 (09:15→20:56)
[2020-09-14] MEDS: Lantus 1000 UNITS/10 ML VIAL SC SCH ×2 (09:18→20:57)
[2020-09-14] MEDS: HumaLOG 300 UNITS/3 ML VIAL SC PRN ×2 (11:23→17:37)
[2020-09-15 04:56] LABS: ALT (SGPT) 15 U/L (8-55); AST (SGOT) 21 U/L (5-34); Alkaline Phosphatase 164 U/L (40-110); Anion Gap 9 mmol/L (10-20); BUN (Urea Nitrogen) 14 mg/dL (8.4-25.7); Bilirubin, Total 1.3 mg/dL (0.2-1.2); Calc. Creatinine Clearance 88 mL/min (70-130); Calcium 9.5 mg/dL (7.8-10.44); Carbon Dioxide 36 mmol/L (23-31); Chloride 97 mmol/L (98-107); Glucose 134 mg/dL (83-110); Potassium 4.8 mmol/L (3.5-5.1); Sodium 137 mmol/L (136-145)
[2020-09-15] MEDS: Furosemide 40 MG/4 ML VIAL SLOW IVP SCH ×2 (05:29→14:28)
[2020-09-15] MEDS: Levothyroxine Sodium 112 MCG TAB PO SCH (05:29)
[2020-09-15 05:57] LABS: #Eosinphils 1.2 thou/uL (0.0-0.7); #Monocytes 0.4 thou/uL (0.11-0.59); #Neutrophils 3.8 thou/uL (1.40-6.50); %Basophils 0.7 % (0.0-1.0); %Eosinophils 18.3 % (0.0-10.0); %Lymphocytes 15.4 % (21.0-51.0); %Monocytes 6.8 % (0.0-10.0); %Neutrophils 58.7 % (42.0-75.0); Anisocytosis SLIGHT = 6-15 cells (100X) (0-5/hpf); Hemoglobin 12.1 g/dL (14.0-18.0); MDiff Complete? YES; Mean Corpuscular HGB CONC 31.7 g/dL (32.0-36.0); Mean Corpuscular Hemoglobin 33.6 pg (27.0-31.0); Platelet Count 83 thou/uL (130-400); Platelet Morphology Comment Appears Decreased; RBC Distribution Width 14.8 % (11.5-14.5); White Blood Cell (WBC) Count 6.4 thou/uL (4.8-10.8)
[2020-09-15] MEDS ORDERED: Spironolactone 25 MG TAB PO SCH (06:54)
[2020-09-15] MEDS: Aspirin 81 mg Enteric Coated Tablet PO SCH (08:36)
[2020-09-15] MEDS: Spironolactone 100 MG TAB PO SCH ×2 (08:36→17:19)
[2020-09-15] MEDS: Potassium Chloride 10 MEQ TAB PO SCH ×3 (08:37→21:16)
[2020-09-15] MEDS: Enoxaparin Sodium 40 MG/0.4 ML SYRINGE SC SCH (08:37)
[2020-09-15] MEDS: Rifaximin 550 MG TAB PO SCH ×2 (08:37→21:16)
[2020-09-15] MEDS: Nystatin Powder 15 GM BOT TOP SCH ×3 (08:38→21:48)
[2020-09-15] MEDS: Lantus 1000 UNITS/10 ML VIAL SC SCH ×2 (08:39→21:48)
[2020-09-15 15:07] LABS: Syphilis Antibody Nonreactive (Nonreactive); Syphilis Antibody Index 0.09 S/CO (<1.00 Non-Reactive)
[2020-09-15 15:08] LABS: HBSAB Concentration Less than 8.00 mIU/mL; HBSAg Index 0.28 S/CO (0-0.99); HIV (1/2) Antibody/Antigen Non-Reactive (NonReactive); HIV 1/2 INDEX 0.13 S/CO (<1.00); Hep B Surf AB Non-Reactive (NonReactive); Hep B Surf Ag Non-Reactive S/CO (NonReactive)
[2020-09-16 05:05] LABS: ALT (SGPT) 19 U/L (8-55); AST (SGOT) 28 U/L (5-34); Albumin 3.3 g/dL (3.4-4.8); Alkaline Phosphatase 222 U/L (40-110); BUN (Urea Nitrogen) 12 mg/dL (8.4-25.7); Bilirubin, Total 1.5 mg/dL (0.2-1.2); Calc. Creatinine Clearance 89 mL/min (70-130); Calcium 10.1 mg/dL (7.8-10.44); Globulin 4.2 g/dL (2.4-3.5); Glucose 174 mg/dL (83-110); Protein, Total 7.5 g/dL (5.8-8.1)
[2020-09-16 05:07] LABS: #Eosinphils 0.7 thou/uL (0.0-0.7); #Lymphocytes 0.7 thou/uL (1.20-3.40); #Monocytes 0.3 thou/uL (0.11-0.59); #Neutrophils 3.4 thou/uL (1.40-6.50); %Basophils 0.6 % (0.0-1.0); %Eosinophils 13.8 % (0.0-10.0); %Lymphocytes 13.8 % (21.0-51.0); %Monocytes 5.4 % (0.0-10.0); %Neutrophils 66.5 % (42.0-75.0); Hemoglobin 12.6 g/dL (14.0-18.0); Mean Corpuscular HGB CONC 31.8 g/dL (32.0-36.0); Mean Corpuscular Hemoglobin 33.8 pg (27.0-31.0); Platelet Count 99 thou/uL (130-400); RBC Distribution Width 14.9 % (11.5-14.5); Red Blood Cell (RBC) Count 3.71 mill/uL (4.70-6.10); White Blood Cell (WBC) Count 5.2 thou/uL (4.8-10.8)
[2020-09-16 05:25] LABS: Chloride 96 mmol/L (98-107); Potassium 3.9 mmol/L (3.5-5.1); Sodium 144 mmol/L (136-145)
[2020-09-16 05:28] LABS: Carbon Dioxide 35 mmol/L (23-31)
[2020-09-16 05:47] LABS: Anion Gap 17 mmol/L (10-20)
[2020-09-16] MEDS: Levothyroxine Sodium 112 MCG TAB PO SCH (06:30)
[2020-09-16] MEDS: Furosemide 40 MG/4 ML VIAL SLOW IVP SCH ×2 (06:30→14:32)
[2020-09-16] MEDS: Aspirin 81 mg Enteric Coated Tablet PO SCH (08:44)
[2020-09-16] MEDS: Rifaximin 550 MG TAB PO SCH (08:45)
[2020-09-16] MEDS: Potassium Chloride 10 MEQ TAB PO SCH (08:45)
[2020-09-16] MEDS: Spironolactone 100 MG TAB PO SCH ×2 (08:45→16:20)
[2020-09-16] MEDS: Enoxaparin Sodium 40 MG/0.4 ML SYRINGE SC SCH (08:46)
[2020-09-16] MEDS: Lantus 1000 UNITS/10 ML VIAL SC SCH (08:46)
[2020-09-16] MEDS: Nystatin Powder 15 GM BOT TOP SCH ×2 (08:47→14:32)
[2020-09-16 16:34] VITALS: BP 130/72; TEMP 97.5
[2020-09-16] MEDS: HumaLOG 300 UNITS/3 ML VIAL SC PRN (17:22)
== END 2020-09-16 18:15 | disposition home health service (06) | DRG 432 ==
LOC: ERS 14:09 → ERHOLD 16:21 → 2NO 18:22
PROVIDERS: ADMIT Student in an Organized Health Care Education/Training Program; ATTEND Student in an Organized Health Care Education/Training Program
PROC: 0T9B70Z Drainage of Bladder with Drainage Device, Via Natural or Artificial Opening (ICD-10-PCS; principal; 2020-09-11)
DX: K74.60 Unspecified cirrhosis of liver (principal); I50.33 Acute on chronic diastolic (congestive) heart failure; J96.01 Acute respiratory failure with hypoxia; G93.41 Metabolic encephalopathy; I13.0 Hypertensive heart and chronic kidney disease with heart failure and stage 1 through stage 4 chronic kidney disease, or unspecified chronic kidney disease; Z20.822 Contact with and (suspected) exposure to COVID-19; E89.0 Postprocedural hypothyroidism; N18.2 Chronic kidney disease, stage 2 (mild); I48.91 Unspecified atrial fibrillation; I27.23 Pulmonary hypertension due to lung diseases and hypoxia; G47.30 Sleep apnea, unspecified; Z96.651 Presence of right artificial knee joint; E66.9 Obesity, unspecified; I08.2 Rheumatic disorders of both aortic and tricuspid valves; E11.22 Type 2 diabetes mellitus with diabetic chronic kidney disease; D63.1 Anemia in chronic kidney disease; I27.22 Pulmonary hypertension due to left heart disease; Z53.20 Procedure and treatment not carried out because of patient's decision for unspecified reasons; K72.90 Hepatic failure, unspecified without coma; Z79.899 Other long term (current) drug therapy; Z90.49 Acquired absence of other specified parts of digestive tract; Z79.82 Long term (current) use of aspirin; Z86.711 Personal history of pulmonary embolism; Z79.890 Hormone replacement therapy; Z87.891 Personal history of nicotine dependence; Z88.0 Allergy status to penicillin; Z79.4 Long term (current) use of insulin; Z68.31 Body mass index [BMI] 31.0-31.9, adult; Z85.828 Personal history of other malignant neoplasm of skin; Z82.49 Family history of ischemic heart disease and other diseases of the circulatory system; Z83.3 Family history of diabetes mellitus
CPT/HCPCS: 36415; 36416; 71045; 74018; 80053; 81001; 82140; 82550; 83735; 83880; 84439; 84443; 84484; 85025; 86706; 86780; 87086; 87340; 87389; 87521; 87635; 93005; 93306; 93798; 94640; 96374; J1650; J1815; J1940; J7620; U0003; U0005

== ENCOUNTER 2020-10-01 22:10 | Observation (INO) | payer MEDICARE, BC ==
[2020-10-01 22:58] LABS: #Eosinphils 0.8 thou/uL (0.0-0.7); #Lymphocytes 1.4 thou/uL (1.20-3.40); #Monocytes 0.4 thou/uL (0.11-0.59); #Neutrophils 5.9 thou/uL (1.40-6.50); %Basophils 0.4 % (0.0-1.0); %Eosinophils 9.6 % (0.0-10.0); %Lymphocytes 16.3 % (21.0-51.0); %Monocytes 4.8 % (0.0-10.0); %Neutrophils 68.9 % (42.0-75.0); Hemoglobin 13.8 g/dL (14.0-18.0); Mean Corpuscular HGB CONC 33.6 g/dL (32.0-36.0); Mean Corpuscular Hemoglobin 33.8 pg (27.0-31.0); Mean Platelet Volume 7.4 fL (7.4-10.4); Platelet Count 160 thou/uL (130-400); RBC Distribution Width 14.8 % (11.5-14.5); Red Blood Cell (RBC) Count 4.09 mill/uL (4.70-6.10); White Blood Cell (WBC) Count 8.5 thou/uL (4.8-10.8)
[2020-10-01 23:15] LABS: ALT (SGPT) 16 U/L (8-55); AST (SGOT) 17 U/L (5-34); Albumin 3.5 g/dL (3.4-4.8); Alkaline Phosphatase 197 U/L (40-110); Anion Gap 13 mmol/L (10-20); BUN (Urea Nitrogen) 25 mg/dL (8.4-25.7); Bilirubin, Total 2.5 mg/dL (0.2-1.2); Calc. Creatinine Clearance 0 mL/min (70-130); Calcium 9.9 mg/dL (7.8-10.44); Carbon Dioxide 31 mmol/L (23-31); Chloride 94 mmol/L (98-107); Globulin 4.2 g/dL (2.4-3.5); Glucose 287 mg/dL (83-110); Potassium 4.3 mmol/L (3.5-5.1); Protein, Total 7.7 g/dL (5.8-8.1); Sodium 134 mmol/L (136-145)
[2020-10-02] MEDS ORDERED: Acetaminophen 325 MG TAB PO PRN (01:14)
[2020-10-02] MEDS ORDERED: Dextrose 5% in Water 1,000 ML IV PRN (01:21)
[2020-10-02] MEDS ORDERED: HumaLOG 300 UNITS/3 ML VIAL SC PRN (01:21)
[2020-10-02] MEDS ORDERED: Dextrose 50% Abboject 50 ML SYRINGE SLOW IVP PRN (01:21)
[2020-10-02 02:33] LABS: Hemoglobin A1c 9.4 % (4.0-6.0)
[2020-10-02] MEDS ORDERED: Ondansetron PF 4 MG/2 ML Vial IVP PRN (02:45)
[2020-10-02] MEDS ORDERED: Ondansetron ODT 4 MG TAB SL PRN (02:45)
[2020-10-02 02:57] VITALS: BMI 28.7
[2020-10-02] MEDS: HumaLOG 300 UNITS/3 ML VIAL SC PRN ×2 (03:56→17:21)
[2020-10-02 05:39] LABS: SARS-CoV-2 NAA Rapid Test Not Detected (NotDetected)
[2020-10-02] MEDS ORDERED: Levothyroxine Sodium 112 MCG TAB PO SCH (06:00)
[2020-10-02] MEDS ORDERED: Non-Formulary Item 1 EACH (Lactulose 10 Gm/15ml Oral Sol 10 GM/15 ML Ml) PO SCH (09:00)
[2020-10-02] MEDS: Spironolactone 100 MG TAB PO SCH ×2 (09:58→16:05)
[2020-10-02] MEDS: Rifaximin 550 MG TAB PO SCH ×2 (09:58→20:40)
[2020-10-02] MEDS: Torsemide 20 MG TAB PO SCH ×3 (09:58→20:41)
[2020-10-02] MEDS: Aspirin 81 mg Enteric Coated Tablet PO SCH (09:58)
[2020-10-02] MEDS: Enoxaparin Sodium 40 MG/0.4 ML SYRINGE SC SCH (09:59)
[2020-10-02] MEDS: Lantus 1000 UNITS/10 ML VIAL SC SCH ×2 (10:16→20:41)
[2020-10-02] MEDS: Potassium Chloride 20 MEQ TAB PO SCH ×2 (11:59→20:40)
[2020-10-03] MEDS: HumaLOG 300 UNITS/3 ML VIAL SC PRN (04:37)
[2020-10-03] MEDS ORDERED: Levothyroxine Sodium 125 MCG TAB PO SCH (06:00)
[2020-10-03 06:15] LABS: #Eosinphils 0.8 thou/uL (0.0-0.7); #Lymphocytes 1.2 thou/uL (1.20-3.40); #Monocytes 0.4 thou/uL (0.11-0.59); #Neutrophils 4.4 thou/uL (1.40-6.50); %Basophils 0.5 % (0.0-1.0); %Eosinophils 12.2 % (0.0-10.0); %Neutrophils 64.3 % (42.0-75.0); Mean Corpuscular Hemoglobin 32.1 pg (27.0-31.0); Mean Platelet Volume 7.5 fL (7.4-10.4); Platelet Count 166 thou/uL (130-400); RBC Distribution Width 14.8 % (11.5-14.5); Red Blood Cell (RBC) Count 4.36 mill/uL (4.70-6.10); White Blood Cell (WBC) Count 6.8 thou/uL (4.8-10.8)
[2020-10-03 06:39] LABS: Anion Gap 13 mmol/L (10-20); BUN (Urea Nitrogen) 17 mg/dL (8.4-25.7); Calc. Creatinine Clearance 73 mL/min (70-130); Calcium 9.9 mg/dL (7.8-10.44); Carbon Dioxide 30 mmol/L (23-31); Chloride 97 mmol/L (98-107); Glucose 235 mg/dL (83-110); Potassium 3.9 mmol/L (3.5-5.1); Sodium 136 mmol/L (136-145)
[2020-10-03 07:47] VITALS: BP 123/81; TEMP 98.4
[2020-10-03] MEDS: Aspirin 81 mg Enteric Coated Tablet PO SCH (08:19)
[2020-10-03] MEDS: Enoxaparin Sodium 40 MG/0.4 ML SYRINGE SC SCH (08:19)
[2020-10-03] MEDS: Spironolactone 100 MG TAB PO SCH (08:19)
[2020-10-03] MEDS: Potassium Chloride 20 MEQ TAB PO SCH (08:20)
[2020-10-03] MEDS: Rifaximin 550 MG TAB PO SCH (08:20)
[2020-10-03] MEDS: Torsemide 20 MG TAB PO SCH (08:23)
[2020-10-03] MEDS ORDERED: Metolazone 2.5 MG TAB PO SCH (09:00)
[2020-10-03] MEDS ORDERED: Lantus 1000 UNITS/10 ML VIAL SC SCH (09:00)
== END 2020-10-03 10:34 | disposition home or self-care (01) ==
LOC: ERS 22:10 → T4-A 10-02 01:15
PROVIDERS: ADMIT Family Medicine; ATTEND Family Medicine
DX: K72.90 Hepatic failure, unspecified without coma (principal); K74.60 Unspecified cirrhosis of liver; I11.0 Hypertensive heart disease with heart failure; I50.30 Unspecified diastolic (congestive) heart failure; I48.20 Chronic atrial fibrillation, unspecified; E03.9 Hypothyroidism, unspecified; E11.9 Type 2 diabetes mellitus without complications; D50.9 Iron deficiency anemia, unspecified; Z79.82 Long term (current) use of aspirin; Z79.899 Other long term (current) drug therapy; Z86.711 Personal history of pulmonary embolism; Z88.0 Allergy status to penicillin; Z87.891 Personal history of nicotine dependence
CPT/HCPCS: 71045; 80048; 80053; 82140; 82962 ×2; 83036; 83880; 84145; 84443; 84484; 85025 ×2; 93005; 99285; U0002; U0005; 36415; 36416; 96372; G0378; J1650; J1815

== ENCOUNTER 2020-10-08 13:01 | Inpatient (IN) | payer MEDICARE, BC ==
[2020-10-08 14:46] LABS: #Basophils 0.1 thou/uL (0.0-0.2); #Eosinphils 1.1 thou/uL (0.0-0.7); #Lymphocytes 1.3 thou/uL (1.20-3.40); #Monocytes 0.4 thou/uL (0.11-0.59); #Neutrophils 3.3 thou/uL (1.40-6.50); %Eosinophils 17.8 % (0.0-10.0); %Lymphocytes 20.9 % (21.0-51.0); %Monocytes 5.9 % (0.0-10.0); %Neutrophils 54.4 % (42.0-75.0); Hemoglobin 13.7 g/dL (14.0-18.0); Mean Platelet Volume 7.4 fL (7.4-10.4); Platelet Count 153 thou/uL (130-400); Red Blood Cell (RBC) Count 4.04 mill/uL (4.70-6.10); White Blood Cell (WBC) Count 6.1 thou/uL (4.8-10.8)
[2020-10-08 15:08] LABS: ALT (SGPT) 33 U/L (8-55); AST (SGOT) 41 U/L (5-34); Albumin 3.3 g/dL (3.4-4.8); Alkaline Phosphatase 218 U/L (40-110); Anion Gap 15 mmol/L (10-20); BUN (Urea Nitrogen) 19 mg/dL (8.4-25.7); Bilirubin, Total 1.3 mg/dL (0.2-1.2); Calc. Creatinine Clearance 0 mL/min (70-130); Calcium 9.3 mg/dL (7.8-10.44); Carbon Dioxide 24 mmol/L (23-31); Chloride 98 mmol/L (98-107); Globulin 4.1 g/dL (2.4-3.5); Glucose 315 mg/dL (83-110); Potassium 4.1 mmol/L (3.5-5.1); Protein, Total 7.4 g/dL (5.8-8.1); Sodium 133 mmol/L (136-145)
[2020-10-08 16:28] LABS: Bilirubin Negative (Negative); Blood, Urine 2+ (Negative); Clarity Extra Turbid (Clear); Glucose, Urine (Dipstick) Greater than 1000 mg/dL (Negative); Ketone, Urine Negative (Negative); Leukocyte 500 Leu/uL (Negative); Nitrite Negative (Negative); Protein, Urine (Dipstick) 50 mg/dL (Neg-Trace); Specific Gravity, Urine 1.023 (1.002-1.036); Squamous Epithelial 0-3 HPF (0-3); Urobilinogen Normal mg/dL (Less than 2)
[2020-10-08 16:35] LABS: Bacteria/HPF 4+ HPF (None Seen); WBC/HPF 21-50 HPF (0-3)
[2020-10-08] MEDS ORDERED: Ondansetron ODT 4 MG TAB PO PRN (17:17)
[2020-10-08] MEDS ORDERED: Dextrose 5% in Water 1,000 ML IV PRN (17:17)
[2020-10-08] MEDS ORDERED: Dextrose 50% Abboject 50 ML SYRINGE SLOW IVP PRN (17:17)
[2020-10-08] MEDS ORDERED: Ondansetron PF 4 MG/2 ML Vial IVP PRN (17:17)
[2020-10-08] MEDS ORDERED: Calcium Carbonate 500 MG ChewTAB PO PRN (17:17)
[2020-10-08 19:10] LABS: Iron 64 ug/dL (65-175); Iron Binding Capacity, Total 281 mcg/dL (261-462)
[2020-10-08 19:26] LABS: Ferritin 132.4 ng/mL (22-322)
[2020-10-08] MEDS: HumaLOG 300 UNITS/3 ML VIAL SC PRN (21:55)
[2020-10-09 01:19] VITALS: BMI 29.4
[2020-10-09] MEDS: Levothyroxine Sodium 125 MCG TAB PO SCH (05:19)
[2020-10-09] MEDS: HumaLOG 300 UNITS/3 ML VIAL SC PRN ×4 (05:56→21:29)
[2020-10-09 06:11] LABS: Eosinophils 2 % (0-10); Hemoglobin 13.2 g/dL (14.0-18.0); Hypochromia SLIGHT = 6-15 cells (100X) (0-5/hpf); Lymphocytes 7 % (21-51); MDiff Complete? YES; Mean Corpuscular HGB CONC 32.7 g/dL (32.0-36.0); Mean Corpuscular Hemoglobin 32.6 pg (27.0-31.0); Mean Corpuscular Volume 99.6 fL (78.0-98.0); Mean Platelet Volume 7.6 fL (7.4-10.4); Monocytes 4 % (0-10); Neutrophil 87 % (42-75); Platelet Count 143 thou/uL (130-400); Platelet Morphology Comment Appears Adequate; RBC Distribution Width 15.1 % (11.5-14.5); Red Blood Cell (RBC) Count 4.05 mill/uL (4.70-6.10)
[2020-10-09 06:22] LABS: ALT (SGPT) 35 U/L (8-55); AST (SGOT) 37 U/L (5-34); Albumin 3.1 g/dL (3.4-4.8); Alkaline Phosphatase 206 U/L (40-110); Anion Gap 12 mmol/L (10-20); BUN (Urea Nitrogen) 15 mg/dL (8.4-25.7); Bilirubin, Total 1.3 mg/dL (0.2-1.2); Calc. Creatinine Clearance 87 mL/min (70-130); Calcium 9.5 mg/dL (7.8-10.44); Carbon Dioxide 29 mmol/L (23-31); Chloride 98 mmol/L (98-107); Globulin 4.1 g/dL (2.4-3.5); Glucose 278 mg/dL (83-110); Potassium 3.6 mmol/L (3.5-5.1); Protein, Total 7.2 g/dL (5.8-8.1); Sodium 135 mmol/L (136-145)
[2020-10-09] MEDS: Enoxaparin Sodium 40 MG/0.4 ML SYRINGE SC SCH (09:24)
[2020-10-09] MEDS: Rifaximin 550 MG TAB PO SCH ×2 (09:25→21:29)
[2020-10-09] MEDS: Potassium Chloride 20 MEQ TAB PO SCH ×3 (09:25→21:29)
[2020-10-09] MEDS: Spironolactone 100 MG TAB PO SCH ×2 (09:25→16:10)
[2020-10-09] MEDS: Aspirin 81 mg Enteric Coated Tablet PO SCH (09:25)
[2020-10-09] MEDS: Torsemide 20 MG TAB PO SCH ×3 (09:25→21:28)
[2020-10-09] MEDS ORDERED: Sulfameth/Trimethoprim DS 800-160mg TAB PO SCH (10:00)
[2020-10-09 10:19] LABS: Hemoglobin A1c 9.5 % (4.0-6.0)
[2020-10-09] MEDS: Lantus 1000 UNITS/10 ML VIAL SC SCH ×2 (10:23→21:29)
[2020-10-09 11:37] LABS: SARS-CoV-2 PCR by NAA Not Detected (NotDetected)
[2020-10-09] MEDS: Sulfameth/Trimethoprim DS 800-160mg TAB PO SCH (21:29)
[2020-10-10] MEDS: Levothyroxine Sodium 125 MCG TAB PO SCH (05:54)
[2020-10-10 08:13] VITALS: TEMP 98.3
[2020-10-10] MEDS: Lantus 1000 UNITS/10 ML VIAL SC SCH (09:22)
[2020-10-10] MEDS: Aspirin 81 mg Enteric Coated Tablet PO SCH (09:22)
[2020-10-10] MEDS: Rifaximin 550 MG TAB PO SCH (09:22)
[2020-10-10] MEDS: Potassium Chloride 20 MEQ TAB PO SCH (09:22)
[2020-10-10] MEDS: Torsemide 20 MG TAB PO SCH (09:22)
[2020-10-10] MEDS: Enoxaparin Sodium 40 MG/0.4 ML SYRINGE SC SCH (09:23)
[2020-10-10] MEDS: Sulfameth/Trimethoprim DS 800-160mg TAB PO SCH (09:23)
[2020-10-10] MEDS: Spironolactone 100 MG TAB PO SCH (09:23)
[2020-10-10 13:58] VITALS: BP 172/82
== END 2020-10-10 11:02 | disposition home or self-care (01) | DRG 442 ==
LOC: ERS 13:01 → ERHOLD 16:31 → 2NO 20:56
PROVIDERS: ADMIT Family Medicine; ATTEND Family Medicine
DX: K72.90 Hepatic failure, unspecified without coma (principal); N39.0 Urinary tract infection, site not specified; R18.8 Other ascites; E72.20 Disorder of urea cycle metabolism, unspecified; I50.32 Chronic diastolic (congestive) heart failure; B96.89 Other specified bacterial agents as the cause of diseases classified elsewhere; K74.60 Unspecified cirrhosis of liver; E11.9 Type 2 diabetes mellitus without complications; E78.5 Hyperlipidemia, unspecified; I11.0 Hypertensive heart disease with heart failure; E03.9 Hypothyroidism, unspecified; I48.91 Unspecified atrial fibrillation; Z20.822 Contact with and (suspected) exposure to COVID-19; Z96.651 Presence of right artificial knee joint; Z99.81 Dependence on supplemental oxygen; Z88.0 Allergy status to penicillin; Z79.4 Long term (current) use of insulin; Z79.82 Long term (current) use of aspirin; Z79.899 Other long term (current) drug therapy; Z90.49 Acquired absence of other specified parts of digestive tract; Z98.890 Other specified postprocedural states; Z98.49 Cataract extraction status, unspecified eye; Z83.3 Family history of diabetes mellitus; Z90.89 Acquired absence of other organs; Z86.711 Personal history of pulmonary embolism; Z87.891 Personal history of nicotine dependence
CPT/HCPCS: 36415; 36416; 51701; 71045; 80053; 81003; 81015; 82140; 82607; 82728; 82746; 83036; 83540; 83550; 85007; 85025; 85027; 87040; 87077; 87086; 87186; 93005; 96365; J1650; J1815; U0003; U0005

== ENCOUNTER 2021-02-18 13:28 | Inpatient (IN) | payer MEDICARE, BC ==
[~2021-02-18 13:28] MED LIST changes: +Iopamidol-370 76% 500 ML 1 ML ONE; -Metolazone 2.5 MG TAB PO PRN
[2021-02-18 14:18] LABS: #Basophils 0.1 thou/uL (0.0-0.2); #Eosinphils 0.5 thou/uL (0.0-0.7); #Lymphocytes 0.8 thou/uL (1.20-3.40); #Monocytes 0.3 thou/uL (0.11-0.59); %Basophils 1.4 % (0.0-1.0); %Eosinophils 9.1 % (0.0-10.0); %Neutrophils 70.4 % (42.0-75.0); Hemoglobin 13.4 g/dL (14.0-18.0); Mean Corpuscular HGB CONC 32.7 g/dL (32.0-36.0); Mean Corpuscular Hemoglobin 32.5 pg (27.0-31.0); Mean Corpuscular Volume 99.3 fL (78.0-98.0); Platelet Count 147 thou/uL (130-400); RBC Distribution Width 14.5 % (11.5-14.5); Red Blood Cell (RBC) Count 4.12 mill/uL (4.70-6.10); White Blood Cell (WBC) Count 5.6 thou/uL (4.8-10.8)
[2021-02-18 14:44] LABS: ALT (SGPT) 19 U/L (8-55); AST (SGOT) 18 U/L (5-34); Albumin 3.6 g/dL (3.4-4.8); Alkaline Phosphatase 158 U/L (40-110); Anion Gap 15 mmol/L (10-20); BUN (Urea Nitrogen) 19 mg/dL (8.4-25.7); Bilirubin, Total 1.8 mg/dL (0.2-1.2); Calc. Creatinine Clearance 0 mL/min (70-130); Calcium 9.6 mg/dL (7.8-10.44); Carbon Dioxide 32 mmol/L (23-31); Chloride 92 mmol/L (98-107); Globulin 4.5 g/dL (2.4-3.5); Glucose 336 mg/dL (83-110); Potassium 4.5 mmol/L (3.5-5.1); Protein, Total 8.1 g/dL (5.8-8.1); Sodium 134 mmol/L (136-145)
[2021-02-18 14:57] LABS: Acetaminophen Less than 6.0 mcg/mL (10.0-30.0); Alcohol Less than 10 mg/dL (Less than 10); Salicylate Less than 8.0 mg/dL (15.0-30.0)
[2021-02-18 16:38] LABS: Bacteria/HPF None Seen HPF (None Seen); Bilirubin Negative (Negative); Blood, Urine Negative (Negative); Clarity Clear (Clear); Glucose, Urine (Dipstick) 500 mg/dL (Negative); Ketone, Urine Negative (Negative); Leukocyte 250 Leu/uL (Negative); Nitrite Negative (Negative); Protein, Urine (Dipstick) Negative (Neg-Trace); RBC/HPF 0-3 HPF (0-3); Specific Gravity, Urine 1.011 (1.002-1.036); Squamous Epithelial None Seen HPF (0-3); Urobilinogen Normal mg/dL (Less than 2)
[2021-02-18 16:45] LABS: Amphetamine Not Detected (NotDetected); Barbiturates Screen Not Detected (NotDetected); Benzodiazepine Screen Not Detected (NotDetected); Cocaine Metabolite Screen Not Detected (NotDetected); Methadone Not Detected (NotDetected); Methamphetamine Not Detected (NotDetected); Opiate Screen Not Detected (NotDetected); Oxycodone Screen Not Detected (NotDetected); Phencyclidine (PCP) Not Detected (NotDetected); THC/Cannabinoid Screen Not Detected (NotDetected); Tricyclic Screen Not Detected (NotDetected)
[2021-02-18] MEDS ORDERED: Fluconazole In NaCl,Iso-Osm 400 MG in Premix Bag 1 BAG IVPB SCH (16:45)
[2021-02-18 17:21] LABS: SARS-CoV-2 NAA Rapid Test Not Detected (NotDetected)
[2021-02-18] MEDS ORDERED: Ondansetron ODT 4 MG TAB PO PRN (19:36)
[2021-02-18] MEDS ORDERED: Calcium Carbonate 500 MG ChewTAB PO PRN (19:36)
[2021-02-18] MEDS ORDERED: Ondansetron PF 4 MG/2 ML Vial IVP PRN (19:36)
[2021-02-18 20:20] LABS: INR-International Normal Ratio 1.2; PTT 36.5 sec (22.9-36.1); Prothrombin Time 15.1 sec (12.0-14.7)
[2021-02-18] MEDS ORDERED: Nystatin Powder 15 GM BOT TOP PRN (20:35)
[2021-02-18 20:58] VITALS: BMI 30.9
[2021-02-18] MEDS ORDERED: Dextrose 5% in Water 1,000 ML IV PRN (21:20)
[2021-02-18] MEDS ORDERED: Dextrose 50% Abboject 50 ML SYRINGE SLOW IVP PRN (21:20)
[2021-02-18] MEDS: HumaLOG 300 UNITS/3 ML VIAL SC PRN (22:00)
[2021-02-18] MEDS: Nystatin Powder 15 GM BOT TOP SCH (22:01)
[2021-02-18] MEDS: Lantus 1000 UNITS/10 ML VIAL SC SCH (22:01)
[2021-02-18] MEDS: Torsemide 20 MG TAB PO SCH (22:02)
[2021-02-18] MEDS: Rifaximin 550 MG TAB PO SCH (22:02)
[2021-02-18] MEDS: Potassium Chloride 20 MEQ TAB PO SCH (22:02)
[2021-02-19 00:08] LABS: INR-International Normal Ratio 1.2; PTT 35.2 sec (22.9-36.1); Prothrombin Time 15.7 sec (12.0-14.7)
[2021-02-19 05:18] LABS: #Eosinphils 0.5 thou/uL (0.0-0.7); #Monocytes 0.5 thou/uL (0.11-0.59); #Neutrophils 4.9 thou/uL (1.40-6.50); %Basophils 0.4 % (0.0-1.0); %Eosinophils 7.1 % (0.0-10.0); %Lymphocytes 14.5 % (21.0-51.0); %Monocytes 7.3 % (0.0-10.0); %Neutrophils 70.6 % (42.0-75.0); Hemoglobin 12.2 g/dL (14.0-18.0); Mean Corpuscular Hemoglobin 32.4 pg (27.0-31.0); Mean Platelet Volume 8.2 fL (7.4-10.4); Platelet Count 128 thou/uL (130-400); RBC Distribution Width 14.6 % (11.5-14.5); Red Blood Cell (RBC) Count 3.76 mill/uL (4.70-6.10); White Blood Cell (WBC) Count 6.9 thou/uL (4.8-10.8)
[2021-02-19 05:23] LABS: ALT (SGPT) 17 U/L (8-55); AST (SGOT) 14 U/L (5-34); Albumin 3.4 g/dL (3.4-4.8); Alkaline Phosphatase 146 U/L (40-110); BUN (Urea Nitrogen) 21 mg/dL (8.4-25.7); Bilirubin, Total 1.4 mg/dL (0.2-1.2); Calc. Creatinine Clearance 60 mL/min (70-130); Calcium 9.8 mg/dL (7.8-10.44); Glucose 419 mg/dL (83-110); Protein, Total 7.4 g/dL (5.8-8.1)
[2021-02-19 05:32] LABS: Anion Gap 18 mmol/L (10-20); Carbon Dioxide 33 mmol/L (23-31); Chloride 89 mmol/L (98-107); Potassium 4.2 mmol/L (3.5-5.1); Sodium 136 mmol/L (136-145)
[2021-02-19] MEDS: HumaLOG 300 UNITS/3 ML VIAL SC PRN ×2 (05:46→21:46)
[2021-02-19] MEDS: Levothyroxine Sodium 125 MCG TAB PO SCH (05:46)
[2021-02-19] MEDS: Rifaximin 550 MG TAB PO SCH ×2 (09:38→21:17)
[2021-02-19] MEDS: Spironolactone 100 MG TAB PO SCH ×2 (09:38→15:48)
[2021-02-19] MEDS: Potassium Chloride 20 MEQ TAB PO SCH ×3 (09:38→21:15)
[2021-02-19] MEDS: Torsemide 20 MG TAB PO SCH ×3 (09:38→21:15)
[2021-02-19] MEDS: Enoxaparin Sodium 40 MG/0.4 ML SYRINGE SC SCH (09:38)
[2021-02-19] MEDS: Lantus 1000 UNITS/10 ML VIAL SC SCH ×2 (09:38→21:42)
[2021-02-19] MEDS: Nystatin Powder 15 GM BOT TOP SCH ×2 (09:39→21:17)
[2021-02-19] MEDS: cefTRIAXone\\ROCEPHIN 1 GM in Sodium Chloride 0.9% 100 ML IVPB SCH (13:45)
[2021-02-19] MEDS: Fluconazole 100 MG TAB PO SCH (15:48)
[2021-02-19] MEDS ORDERED: Metolazone 5 MG TAB PO PRN (16:23)
[2021-02-19] MEDS ORDERED: Aspirin 81 mg Enteric Coated Tablet PO SCH (17:00)
[2021-02-20 08:15] LABS: #Basophils 0.1 thou/uL (0.0-0.2); #Eosinphils 0.2 thou/uL (0.0-0.7); #Lymphocytes 1.8 thou/uL (1.20-3.40); #Neutrophils 10.4 thou/uL (1.40-6.50); %Basophils 0.5 % (0.0-1.0); %Eosinophils 1.5 % (0.0-10.0); %Lymphocytes 13.1 % (21.0-51.0); %Monocytes 7.8 % (0.0-10.0); %Neutrophils 77.1 % (42.0-75.0); Hemoglobin 8.3 g/dL (14.0-18.0); Mean Corpuscular HGB CONC 32.6 g/dL (32.0-36.0); Mean Corpuscular Hemoglobin 32.6 pg (27.0-31.0); Mean Corpuscular Volume 99.9 fL (78.0-98.0); Mean Platelet Volume 7.3 fL (7.4-10.4); Platelet Count 421 thou/uL (130-400); RBC Distribution Width 15.4 % (11.5-14.5); Red Blood Cell (RBC) Count 2.55 mill/uL (4.70-6.10); White Blood Cell (WBC) Count 13.4 thou/uL (4.8-10.8)
[2021-02-20] MEDS: Enoxaparin Sodium 40 MG/0.4 ML SYRINGE SC SCH (08:21)
[2021-02-20] MEDS: Aspirin 81 mg Enteric Coated Tablet PO SCH (08:22)
[2021-02-20] MEDS: Lantus 1000 UNITS/10 ML VIAL SC SCH ×2 (08:22→21:10)
[2021-02-20] MEDS: Potassium Chloride 20 MEQ TAB PO SCH ×3 (08:22→21:11)
[2021-02-20] MEDS: Torsemide 20 MG TAB PO SCH ×2 (08:22→21:11)
[2021-02-20] MEDS: Spironolactone 100 MG TAB PO SCH (08:22)
[2021-02-20] MEDS: Rifaximin 550 MG TAB PO SCH ×2 (08:22→21:11)
[2021-02-20] MEDS: Levothyroxine Sodium 125 MCG TAB PO SCH (08:22)
[2021-02-20] MEDS: Nystatin Powder 15 GM BOT TOP SCH ×2 (08:22→21:12)
[2021-02-20 08:25] LABS: ALT (SGPT) 19 U/L (8-55); AST (SGOT) 32 U/L (5-34); Albumin 3.1 g/dL (3.4-4.8); Alkaline Phosphatase 58 U/L (40-110); Anion Gap 16 mmol/L (10-20); BUN (Urea Nitrogen) 53 mg/dL (8.4-25.7); Bilirubin, Total 0.5 mg/dL (0.2-1.2); Calc. Creatinine Clearance 12 mL/min (70-130); Calcium 9.1 mg/dL (7.8-10.44); Carbon Dioxide 27 mmol/L (23-31); Chloride 101 mmol/L (98-107); Globulin 3.3 g/dL (2.4-3.5); Glucose 103 mg/dL (83-110); Potassium 4.4 mmol/L (3.5-5.1); Protein, Total 6.4 g/dL (5.8-8.1); Sodium 140 mmol/L (136-145)
[2021-02-20 08:36] LABS: Anisocytosis SLIGHT = 6-15 cells (100X) (0-5/hpf); Band 6 % (5-11); Eosinophils 2 % (0-10); Lymphocytes 12 % (21-51); MDiff Complete? YES; Monocytes 8 % (0-10); Neutrophil 72 % (42-75); Platelet Morphology Comment Appears Increased; Polychromasia MODERATE = 3-4 cells (100X) (0-2/hpf)
[2021-02-20] MEDS ORDERED: Lactated Ringer's 500 ML IV SCH (09:18)
[2021-02-20] MEDS ORDERED: Albumin 25% 25 GM/100 ML BOT IVPB SCH ×2 (11:00→18:00)
[2021-02-20] MEDS: Ammonium Lactate 12% Lotion 225 GM BOT TOP SCH ×2 (13:28→21:12)
[2021-02-20 13:49] LABS: Anion Gap 17 mmol/L (10-20); BUN (Urea Nitrogen) 16 mg/dL (8.4-25.7); Calc. Creatinine Clearance 70 mL/min (70-130); Calcium 9.5 mg/dL (7.8-10.44); Carbon Dioxide 37 mmol/L (23-31); Chloride 87 mmol/L (98-107); Glucose 121 mg/dL (83-110); Potassium 4.8 mmol/L (3.5-5.1); Sodium 136 mmol/L (136-145)
[2021-02-20 13:53] LABS: Mean Corpuscular HGB CONC 31.5 g/dL (32.0-36.0); Mean Platelet Volume 8.4 fL (7.4-10.4); Platelet Count 91 thou/uL (130-400); RBC Distribution Width 14.4 % (11.5-14.5); Red Blood Cell (RBC) Count 4.07 mill/uL (4.70-6.10); White Blood Cell (WBC) Count 4.8 thou/uL (4.8-10.8)
[2021-02-20 14:07] LABS: Band 1 % (5-11); Eosinophils 8 % (0-10); Lymphocytes 17 % (21-51); MDiff Complete? YES; Monocytes 11 % (0-10); Neutrophil 61 % (42-75); Platelet Morphology Comment Appears Decreased; RBC Morphology Normal
[2021-02-20] MEDS: cefTRIAXone\\ROCEPHIN 1 GM in Sodium Chloride 0.9% 100 ML IVPB SCH (16:01)
[2021-02-20] MEDS: Fluconazole 100 MG TAB PO SCH (16:01)
[2021-02-20 16:38] LABS: Creatinine, Urine Less than 20.00 mg/dL (63-166); Urea Nitrogen, Random Urine 145 mg/dl
[2021-02-20] MEDS: HumaLOG 300 UNITS/3 ML VIAL SC PRN (18:11)
[2021-02-20] MEDS ORDERED: Spironolactone 100 MG TAB PO SCH (19:00)
[2021-02-20 19:02] LABS: INR-International Normal Ratio 1.2; Prothrombin Time 14.9 sec (12.0-14.7)
[2021-02-21 05:36] LABS: ALT (SGPT) 18 U/L (8-55); AST (SGOT) 33 U/L (5-34); Albumin 3.6 g/dL (3.4-4.8); Alkaline Phosphatase 143 U/L (40-110); Anion Gap 17 mmol/L (10-20); BUN (Urea Nitrogen) 16 mg/dL (8.4-25.7); Bilirubin, Total 1.3 mg/dL (0.2-1.2); Calc. Creatinine Clearance 65 mL/min (70-130); Calcium 9.8 mg/dL (7.8-10.44); Carbon Dioxide 34 mmol/L (23-31); Chloride 88 mmol/L (98-107); Globulin 4.2 g/dL (2.4-3.5); Glucose 209 mg/dL (83-110); Potassium 5.3 mmol/L (3.5-5.1); Protein, Total 7.8 g/dL (5.8-8.1); Sodium 134 mmol/L (136-145)
[2021-02-21 05:42] LABS: Eosinophils 14 % (0-10); Hemoglobin 12.2 g/dL (14.0-18.0); Lymphocytes 16 % (21-51); MDiff Complete? YES; Mean Corpuscular HGB CONC 31.3 g/dL (32.0-36.0); Mean Corpuscular Hemoglobin 31.7 pg (27.0-31.0); Mean Platelet Volume 8.2 fL (7.4-10.4); Monocytes 6 % (0-10); Neutrophil 64 % (42-75); Platelet Count 114 thou/uL (130-400); Platelet Morphology Comment Appears Decreased; RBC Distribution Width 14.4 % (11.5-14.5); Red Blood Cell (RBC) Count 3.84 mill/uL (4.70-6.10); White Blood Cell (WBC) Count 5.7 thou/uL (4.8-10.8)
[2021-02-21] MEDS: HumaLOG 300 UNITS/3 ML VIAL SC PRN (06:11)
[2021-02-21] MEDS: Levothyroxine Sodium 125 MCG TAB PO SCH (06:11)
[2021-02-21] MEDS ORDERED: Spironolactone 100 MG TAB PO SCH (07:30)
[2021-02-21 07:31] VITALS: BP 131/76; TEMP 98
[2021-02-21] MEDS: Ammonium Lactate 12% Lotion 225 GM BOT TOP SCH (08:40)
[2021-02-21] MEDS: Nystatin Powder 15 GM BOT TOP SCH (08:40)
[2021-02-21] MEDS: Aspirin 81 mg Enteric Coated Tablet PO SCH (09:26)
[2021-02-21] MEDS: Lantus 1000 UNITS/10 ML VIAL SC SCH (09:26)
[2021-02-21] MEDS: Rifaximin 550 MG TAB PO SCH (09:27)
[2021-02-21] MEDS: Torsemide 20 MG TAB PO SCH (09:27)
[2021-02-22] MEDS ORDERED: FLU VACC QS2021-22(65YR UP)/PF 240 MCG/0.7 ML SYRINGE IM ONE (09:00)
== END 2021-02-21 10:19 | disposition home or self-care (01) | DRG 442 ==
LOC: ERS 13:28 → 2NO 17:56
PROVIDERS: ADMIT Student in an Organized Health Care Education/Training Program; ATTEND Student in an Organized Health Care Education/Training Program
DX: K72.90 Hepatic failure, unspecified without coma (principal); I48.20 Chronic atrial fibrillation, unspecified; R18.8 Other ascites; J98.11 Atelectasis; J96.10 Chronic respiratory failure, unspecified whether with hypoxia or hypercapnia; N17.9 Acute kidney failure, unspecified; K52.1 Toxic gastroenteritis and colitis; B37.49 Other urogenital candidiasis; I13.0 Hypertensive heart and chronic kidney disease with heart failure and stage 1 through stage 4 chronic kidney disease, or unspecified chronic kidney disease; I50.32 Chronic diastolic (congestive) heart failure; Z20.822 Contact with and (suspected) exposure to COVID-19; K74.60 Unspecified cirrhosis of liver; E11.9 Type 2 diabetes mellitus without complications; E03.9 Hypothyroidism, unspecified; D53.9 Nutritional anemia, unspecified; Z96.651 Presence of right artificial knee joint; L30.4 Erythema intertrigo; N18.30 Chronic kidney disease, stage 3 unspecified; D63.1 Anemia in chronic kidney disease; D72.829 Elevated white blood cell count, unspecified; E88.09 Other disorders of plasma-protein metabolism, not elsewhere classified; I08.2 Rheumatic disorders of both aortic and tricuspid valves; K75.81 Nonalcoholic steatohepatitis (NASH); I50.810 Right heart failure, unspecified; E87.5 Hyperkalemia; T47.3X5A Adverse effect of saline and osmotic laxatives, initial encounter; Z88.0 Allergy status to penicillin; Z79.82 Long term (current) use of aspirin; Z79.4 Long term (current) use of insulin; Z79.899 Other long term (current) drug therapy; Z90.49 Acquired absence of other specified parts of digestive tract; Z87.891 Personal history of nicotine dependence; Z86.711 Personal history of pulmonary embolism
CPT/HCPCS: 0240U; 36415; 36416; 51702; 70450; 71045; 71260; 76705; 76770; 80053; 80306; 80307; 81003; 81015; 82140; 82274; 82570; 83010; 83605; 83615; 83880; 84439; 84443; 84481; 84484; 84540; 85025; 85384; 85610; 85730; 87040; 87086; 93005; 96365; 96366; 96375; J0696; J1450; J1650; J1815; J3490; J7120; P9047; Q9967

== ENCOUNTER 2021-03-08 19:32 | Inpatient (IN) | payer MEDICARE, BC ==
[2021-03-08 21:05] LABS: #Eosinphils 0.5 thou/uL (0.0-0.7); #Monocytes 0.2 thou/uL (0.11-0.59); #Neutrophils 4.1 thou/uL (1.40-6.50); %Basophils 0.6 % (0.0-1.0); %Eosinophils 8.8 % (0.0-10.0); %Lymphocytes 17.2 % (21.0-51.0); %Monocytes 4.1 % (0.0-10.0); %Neutrophils 69.3 % (42.0-75.0); Hemoglobin 14.4 g/dL (14.0-18.0); Mean Corpuscular HGB CONC 33.6 g/dL (32.0-36.0); Mean Corpuscular Hemoglobin 32.9 pg (27.0-31.0); Mean Corpuscular Volume 97.9 fL (78.0-98.0); Mean Platelet Volume 7.5 fL (7.4-10.4); Platelet Count 159 thou/uL (130-400); Red Blood Cell (RBC) Count 4.38 mill/uL (4.70-6.10); White Blood Cell (WBC) Count 5.9 thou/uL (4.8-10.8)
[2021-03-08 21:16] LABS: INR-International Normal Ratio 1.1; PTT 32.6 sec (22.9-36.1); Prothrombin Time 14.5 sec (12.0-14.7)
[2021-03-08 21:30] LABS: ALT (SGPT) 18 U/L (8-55); AST (SGOT) 18 U/L (5-34); Albumin 3.7 g/dL (3.4-4.8); Alkaline Phosphatase 168 U/L (40-110); Anion Gap 11 mmol/L (10-20); BUN (Urea Nitrogen) 18 mg/dL (8.4-25.7); Bilirubin, Total 1.8 mg/dL (0.2-1.2); CK (CPK) 16 U/L (30-200); Calc. Creatinine Clearance 0 mL/min (70-130); Calcium 10.2 mg/dL (7.8-10.44); Carbon Dioxide 30 mmol/L (23-31); Chloride 100 mmol/L (98-107); Globulin 4.9 g/dL (2.4-3.5); Glucose 382 mg/dL (83-110); Lipase 22 U/L (8-78); Magnesium 2.4 mg/dL (1.6-2.6); Protein, Total 8.6 g/dL (5.8-8.1); Sodium 136 mmol/L (136-145)
[2021-03-08] MEDS ORDERED: Lactated Ringer's 1,000 ML IV SCH (23:15)
[2021-03-08] MEDS ORDERED: Dextrose 5% in Water 1,000 ML IV PRN (23:32)
[2021-03-08] MEDS ORDERED: Dextrose 50% Abboject 50 ML SYRINGE SLOW IVP PRN (23:32)
[2021-03-08] MEDS ORDERED: HumaLOG 300 UNITS/3 ML VIAL SC PRN (23:32)
[2021-03-09] MEDS ORDERED: Levothyroxine Sodium 125 MCG TAB PO SCH (06:00)
[2021-03-09] MEDS: HumaLOG 300 UNITS/3 ML VIAL SC PRN ×2 (06:36→12:20)
[2021-03-09 06:51] LABS: Anion Gap 12 mmol/L (10-20); BUN (Urea Nitrogen) 16 mg/dL (8.4-25.7); Calc. Creatinine Clearance 62 mL/min (70-130); Calcium 9.9 mg/dL (7.8-10.44); Carbon Dioxide 25 mmol/L (23-31); Chloride 104 mmol/L (98-107); Glucose 312 mg/dL (83-110); Potassium 4.3 mmol/L (3.5-5.1); Sodium 137 mmol/L (136-145)
[2021-03-09] MEDS ORDERED: Spironolactone 100 MG TAB PO SCH (07:30)
[2021-03-09] MEDS: Torsemide 20 MG TAB PO SCH ×2 (08:53→15:12)
[2021-03-09] MEDS: Potassium Chloride 10 MEQ TAB PO SCH ×2 (08:54→15:12)
[2021-03-09] MEDS ORDERED: Nystatin Powder 15 GM BOT TOP SCH (09:00)
[2021-03-09] MEDS ORDERED: Aspirin 81 mg Enteric Coated Tablet PO SCH (09:00)
[2021-03-09] MEDS ORDERED: Rifaximin 550 MG TAB PO SCH (09:00)
[2021-03-09] MEDS ORDERED: Lantus 1000 UNITS/10 ML VIAL SC SCH (09:00)
[2021-03-09 10:13] LABS: Bacteria/HPF None Seen HPF (None Seen); Bilirubin Negative (Negative); Blood, Urine Negative (Negative); Clarity Clear (Clear); Glucose, Urine (Dipstick) Greater than 1000 mg/dL (Negative); Ketone, Urine Negative (Negative); Leukocyte Negative Leu/uL (Negative); Nitrite Negative (Negative); Protein, Urine (Dipstick) 10 mg/dL (Neg-Trace); RBC/HPF 0-3 HPF (0-3); Specific Gravity, Urine 1.021 (1.002-1.036); Squamous Epithelial 0-3 HPF (0-3); Urobilinogen Normal mg/dL (Less than 2); WBC/HPF 0-3 HPF (0-3); pH, Urine 5.5 (5.0-9.0)
[2021-03-09 10:15] LABS: Urine Culture Reflex No No
[2021-03-09 12:11] VITALS: BP 125/82; TEMP 97.9
[2021-03-09 12:35] VITALS: BMI 35.6
[2021-03-09 13:56] LABS: SARS-CoV-2 PCR by NAA Not Detected (NotDetected)
[2021-03-12] MEDS ORDERED: FLU VACC QS2021-22(65YR UP)/PF 240 MCG/0.7 ML SYRINGE IM ONE (09:00)
== END 2021-03-09 16:49 | disposition home or self-care (01) | DRG 442 ==
LOC: ERS 19:32 → T4-B 23:05
PROVIDERS: ADMIT Student in an Organized Health Care Education/Training Program; ATTEND Student in an Organized Health Care Education/Training Program
DX: K72.90 Hepatic failure, unspecified without coma (principal); I50.32 Chronic diastolic (congestive) heart failure; N17.9 Acute kidney failure, unspecified; E89.0 Postprocedural hypothyroidism; Z96.651 Presence of right artificial knee joint; K74.60 Unspecified cirrhosis of liver; I11.0 Hypertensive heart disease with heart failure; D64.9 Anemia, unspecified; E11.9 Type 2 diabetes mellitus without complications; Z86.711 Personal history of pulmonary embolism; Z90.49 Acquired absence of other specified parts of digestive tract; Z87.891 Personal history of nicotine dependence; Z88.0 Allergy status to penicillin; Z79.899 Other long term (current) drug therapy; Z79.82 Long term (current) use of aspirin; Z79.4 Long term (current) use of insulin; Z79.890 Hormone replacement therapy
CPT/HCPCS: 36415; 36416; 80048; 80053; 81001; 82140; 82550; 83690; 83735; 85025; 85610; 85730; 93005; 94760; U0003; U0005

== ENCOUNTER 2021-03-23 23:00 | Emergency (ER) | payer MEDICARE, BC | END 2021-03-24 00:10 | disposition home or self-care (01) | LOC: ERS 23:00 | DX: K59.00 Constipation, unspecified (principal); I11.0 Hypertensive heart disease with heart failure; I50.9 Heart failure, unspecified; E11.9 Type 2 diabetes mellitus without complications; E03.9 Hypothyroidism, unspecified; I48.91 Unspecified atrial fibrillation; Z86.711 Personal history of pulmonary embolism; Z87.891 Personal history of nicotine dependence; Z79.899 Other long term (current) drug therapy; Z79.82 Long term (current) use of aspirin | CPT/HCPCS: 99283 ==

== ENCOUNTER 2021-03-25 13:48 | Emergency (ER) | payer MEDICARE, BC ==
[2021-03-25] MEDS ORDERED: Lidocaine 1% w/Epinephrine 1:100K 20 ML VIAL ONE (15:08)
== END 2021-03-25 16:18 | disposition home or self-care (01) ==
LOC: ERS 13:48
DX: S81.011A Laceration without foreign body, right knee, initial encounter (principal); W26.8XXA Contact with other sharp object(s), not elsewhere classified, initial encounter; I11.0 Hypertensive heart disease with heart failure; E11.9 Type 2 diabetes mellitus without complications; I50.9 Heart failure, unspecified; E03.9 Hypothyroidism, unspecified; I48.91 Unspecified atrial fibrillation; Z87.891 Personal history of nicotine dependence
CPT/HCPCS: 12002

== ENCOUNTER 2021-04-20 20:47 | Emergency (ER) | payer MEDICARE, BC | END 2021-04-21 00:10 | disposition home or self-care (01) | LOC: ERS 20:47 | DX: L30.4 Erythema intertrigo (principal); B37.9 Candidiasis, unspecified; I11.0 Hypertensive heart disease with heart failure; I50.9 Heart failure, unspecified; I48.91 Unspecified atrial fibrillation; E11.9 Type 2 diabetes mellitus without complications; E03.9 Hypothyroidism, unspecified; Z86.711 Personal history of pulmonary embolism; Z87.891 Personal history of nicotine dependence | CPT/HCPCS: 99284 ==

== ENCOUNTER 2021-05-06 10:51 | Inpatient (IN) | payer MEDICARE, BC ==
[2021-05-06 11:40] LABS: #Eosinphils 0.8 thou/uL (0.0-0.7); #Lymphocytes 1.2 thou/uL (1.20-3.40); #Monocytes 0.4 thou/uL (0.11-0.59); #Neutrophils 4.1 thou/uL (1.40-6.50); %Basophils 0.5 % (0.0-1.0); %Eosinophils 12.1 % (0.0-10.0); %Lymphocytes 18.8 % (21.0-51.0); %Monocytes 5.9 % (0.0-10.0); %Neutrophils 62.7 % (42.0-75.0); Hemoglobin 14.1 g/dL (14.0-18.0); Mean Corpuscular HGB CONC 33.2 g/dL (32.0-36.0); Mean Corpuscular Hemoglobin 32.8 pg (27.0-31.0); Mean Corpuscular Volume 98.6 fL (78.0-98.0); Mean Platelet Volume 7.3 fL (7.4-10.4); Platelet Count 138 thou/uL (130-400); RBC Distribution Width 15.1 % (11.5-14.5); White Blood Cell (WBC) Count 6.5 thou/uL (4.8-10.8)
[2021-05-06 11:52] LABS: INR-International Normal Ratio 1.2; PTT 34.2 sec (22.9-36.1); Prothrombin Time 15.3 sec (12.0-14.7)
[2021-05-06 12:01] LABS: ALT (SGPT) 15 U/L (8-55); AST (SGOT) 20 U/L (5-34); Albumin 3.4 g/dL (3.4-4.8); Alkaline Phosphatase 146 U/L (40-110); Anion Gap 19 mmol/L (10-20); BUN (Urea Nitrogen) 18 mg/dL (8.4-25.7); Bilirubin, Total 3.4 mg/dL (0.2-1.2); Calc. Creatinine Clearance 0 mL/min (70-130); Calcium 10.1 mg/dL (7.8-10.44); Carbon Dioxide 27 mmol/L (23-31); Chloride 94 mmol/L (98-107); Globulin 4.6 g/dL (2.4-3.5); Glucose 270 mg/dL (83-110); Sodium 135 mmol/L (136-145)
[2021-05-06] MEDS ORDERED: Dextrose 50% Abboject 50 ML SYRINGE SLOW IVP PRN (13:28)
[2021-05-06] MEDS ORDERED: Dextrose 5% in Water 1,000 ML IV PRN (13:28)
[2021-05-06] MEDS ORDERED: Spironolactone 100 MG TAB PO SCH (18:30)
[2021-05-06] MEDS ORDERED: Nystatin Cream 15 GM TUBE TOP SCH (21:00)
[2021-05-06] MEDS: Ammonium Lactate 12% Lotion 225 GM BOT TOP SCH (21:06)
[2021-05-06] MEDS: Rifaximin 550 MG TAB PO SCH (21:06)
[2021-05-06] MEDS: Torsemide 20 MG TAB PO SCH (21:06)
[2021-05-06] MEDS: Potassium Chloride 20 MEQ TAB PO SCH (21:07)
[2021-05-06] MEDS: Lantus 1000 UNITS/10 ML VIAL SC SCH (21:10)
[2021-05-07 04:46] LABS: #Eosinphils 0.9 thou/uL (0.0-0.7); #Lymphocytes 1.1 thou/uL (1.20-3.40); #Monocytes 0.4 thou/uL (0.11-0.59); #Neutrophils 4.4 thou/uL (1.40-6.50); %Basophils 0.6 % (0.0-1.0); %Eosinophils 12.8 % (0.0-10.0); %Monocytes 6.1 % (0.0-10.0); %Neutrophils 64.5 % (42.0-75.0); Hemoglobin 12.9 g/dL (14.0-18.0); Mean Corpuscular HGB CONC 33.9 g/dL (32.0-36.0); Mean Corpuscular Hemoglobin 33.3 pg (27.0-31.0); Mean Corpuscular Volume 98.3 fL (78.0-98.0); Mean Platelet Volume 7.1 fL (7.4-10.4); Platelet Count 162 thou/uL (130-400); RBC Distribution Width 15.2 % (11.5-14.5); Red Blood Cell (RBC) Count 3.86 mill/uL (4.70-6.10); White Blood Cell (WBC) Count 6.9 thou/uL (4.8-10.8)
[2021-05-07 05:09] LABS: ALT (SGPT) 19 U/L (8-55); AST (SGOT) 20 U/L (5-34); Albumin 3.3 g/dL (3.4-4.8); Alkaline Phosphatase 160 U/L (40-110); Anion Gap 14 mmol/L (10-20); BUN (Urea Nitrogen) 15 mg/dL (8.4-25.7); Bilirubin, Total 2.5 mg/dL (0.2-1.2); Calc. Creatinine Clearance 61 mL/min (70-130); Calcium 9.7 mg/dL (7.8-10.44); Carbon Dioxide 28 mmol/L (23-31); Chloride 96 mmol/L (98-107); Globulin 4.6 g/dL (2.4-3.5); Glucose 273 mg/dL (83-110); Potassium 3.8 mmol/L (3.5-5.1); Protein, Total 7.9 g/dL (5.8-8.1); Sodium 134 mmol/L (136-145)
[2021-05-07] MEDS: Levothyroxine Sodium 125 MCG TAB PO SCH (05:27)
[2021-05-07] MEDS: HumaLOG 300 UNITS/3 ML VIAL SC PRN ×3 (05:36→17:19)
[2021-05-07 09:51] LABS: SARS-CoV-2 PCR by NAA Not Detected (NotDetected)
[2021-05-07] MEDS: Aspirin 81 mg Enteric Coated Tablet PO SCH (10:07)
[2021-05-07] MEDS: Nystatin Cream 30 GM TUBE TOP SCH ×2 (10:07→21:03)
[2021-05-07] MEDS: Lantus 1000 UNITS/10 ML VIAL SC SCH ×2 (10:07→21:03)
[2021-05-07] MEDS: Rifaximin 550 MG TAB PO SCH ×2 (10:07→21:04)
[2021-05-07] MEDS: Potassium Chloride 20 MEQ TAB PO SCH ×3 (10:07→21:02)
[2021-05-07] MEDS: Ammonium Lactate 12% Lotion 225 GM BOT TOP SCH ×2 (10:07→21:02)
[2021-05-07] MEDS: Torsemide 20 MG TAB PO SCH ×3 (10:16→21:07)
[2021-05-07] MEDS: Spironolactone 100 MG TAB PO SCH ×2 (10:16→17:19)
[2021-05-07] MEDS ORDERED: Torsemide 20 MG TAB PO ONE (12:00)
[2021-05-07 18:04] LABS: Bacteria/HPF 3+ HPF (None Seen); Bilirubin Negative (Negative); Blood, Urine Negative (Negative); Clarity Clear (Clear); Glucose, Urine (Dipstick) Normal (Negative); Ketone, Urine Negative (Negative); Leukocyte 25 Leu/uL (Negative); Nitrite Negative (Negative); Protein, Urine (Dipstick) Negative (Neg-Trace); RBC/HPF None Seen HPF (0-3); Specific Gravity, Urine 1.008 (1.002-1.036); Squamous Epithelial 0-3 HPF (0-3); Urobilinogen Normal mg/dL (Less than 2); WBC/HPF 0-3 HPF (0-3)
[2021-05-07 18:06] LABS: Urine Culture Reflex Yes Yes
[2021-05-07] MEDS ORDERED: Fosfomycin 3 GM/Packet PO SCH (20:00)
[2021-05-08] MEDS: Levothyroxine Sodium 125 MCG TAB PO SCH (05:14)
[2021-05-08] MEDS: HumaLOG 300 UNITS/3 ML VIAL SC PRN (05:21)
[2021-05-08 07:31] LABS: #Basophils 0.1 thou/uL (0.0-0.2); #Eosinphils 0.9 thou/uL (0.0-0.7); #Monocytes 0.4 thou/uL (0.11-0.59); #Neutrophils 5.3 thou/uL (1.40-6.50); %Basophils 0.7 % (0.0-1.0); %Eosinophils 12.2 % (0.0-10.0); %Lymphocytes 13.1 % (21.0-51.0); %Monocytes 5.6 % (0.0-10.0); %Neutrophils 68.4 % (42.0-75.0); Hemoglobin 12.2 g/dL (14.0-18.0); Mean Corpuscular HGB CONC 32.1 g/dL (32.0-36.0); Mean Corpuscular Hemoglobin 32.1 pg (27.0-31.0); Mean Corpuscular Volume 99.8 fL (78.0-98.0); Mean Platelet Volume 7.3 fL (7.4-10.4); Platelet Count 149 thou/uL (130-400); RBC Distribution Width 14.8 % (11.5-14.5); White Blood Cell (WBC) Count 7.7 thou/uL (4.8-10.8)
[2021-05-08 07:55] LABS: Anion Gap 13 mmol/L (10-20); BUN (Urea Nitrogen) 15 mg/dL (8.4-25.7); Calc. Creatinine Clearance 58 mL/min (70-130); Calcium 9.8 mg/dL (7.8-10.44); Carbon Dioxide 34 mmol/L (23-31); Chloride 94 mmol/L (98-107); Glucose 133 mg/dL (83-110); Potassium 4.2 mmol/L (3.5-5.1); Sodium 137 mmol/L (136-145)
[2021-05-08] MEDS: Torsemide 20 MG TAB PO SCH ×3 (09:30→20:19)
[2021-05-08] MEDS: Spironolactone 100 MG TAB PO SCH ×2 (09:30→17:36)
[2021-05-08] MEDS: Nystatin Cream 30 GM TUBE TOP SCH ×2 (09:30→19:15)
[2021-05-08] MEDS: Rifaximin 550 MG TAB PO SCH ×2 (09:30→20:19)
[2021-05-08] MEDS: Potassium Chloride 20 MEQ TAB PO SCH ×3 (09:30→20:18)
[2021-05-08] MEDS: Aspirin 81 mg Enteric Coated Tablet PO SCH (09:30)
[2021-05-08] MEDS: Ammonium Lactate 12% Lotion 225 GM BOT TOP SCH ×2 (09:31→19:14)
[2021-05-08] MEDS: Lantus 1000 UNITS/10 ML VIAL SC SCH ×2 (09:31→20:19)
[2021-05-08 16:09] LABS: Actual Bicarbonate (HCO3a) 37.5 mEq/L (22-28); Base Excess (BEa) 8.9 mEq/L (-2.0 to +3.0); Calcium, Ionized (arterial) 1.23 mmol/L (1.12-1.30); Carboxyhemoglobin (COHb) 2.8 gm% (0.0-3.0); Hemoglobin (Hb) 13.7 g/dL (14.0-18.0); Potassium - ABG Lab 4.36 mmol/L (3.70-5.30); pH, Arterial 7.34 (7.35-7.45)
[2021-05-08 16:13] LABS: CO2 Tension 70.9 mmHg (35.0-45.0)
[2021-05-08 16:14] LABS: ALV-art Gradient 56.715 mmHg (0-20); O2 Tension (PaO2), arterial 54.3 mmHg (> 60.0); Puncture Site RRA
[2021-05-08 22:21] LABS: Actual Bicarbonate (HCO3a) 37.8 mEq/L (22-28); Base Excess (BEa) 10.1 mEq/L (-2.0 to +3.0); Calcium, Ionized (arterial) 1.21 mmol/L (1.12-1.30); O2 Tension (PaO2), arterial 148.3 mmHg (> 60.0); Potassium - ABG Lab 4.34 mmol/L (3.70-5.30); pH, Arterial 7.38 (7.35-7.45)
[2021-05-08 22:22] LABS: Puncture Site RRA
[2021-05-09] MEDS: Levothyroxine Sodium 125 MCG TAB PO SCH (06:00)
[2021-05-09] MEDS: Aspirin 81 mg Enteric Coated Tablet PO SCH (08:28)
[2021-05-09] MEDS: Spironolactone 100 MG TAB PO SCH ×2 (08:28→17:41)
[2021-05-09] MEDS: Lantus 1000 UNITS/10 ML VIAL SC SCH ×2 (08:28→21:08)
[2021-05-09] MEDS: Rifaximin 550 MG TAB PO SCH ×2 (08:29→20:28)
[2021-05-09] MEDS: Potassium Chloride 20 MEQ TAB PO SCH ×3 (08:29→20:28)
[2021-05-09 08:33] LABS: #Eosinphils 0.7 thou/uL (0.0-0.7); #Monocytes 0.5 thou/uL (0.11-0.59); #Neutrophils 4.5 thou/uL (1.40-6.50); %Basophils 0.6 % (0.0-1.0); %Lymphocytes 14.2 % (21.0-51.0); %Monocytes 7.7 % (0.0-10.0); %Neutrophils 66.6 % (42.0-75.0); Hemoglobin 12.3 g/dL (14.0-18.0); Mean Corpuscular HGB CONC 32.5 g/dL (32.0-36.0); Mean Corpuscular Hemoglobin 32.8 pg (27.0-31.0); Mean Platelet Volume 7.5 fL (7.4-10.4); Platelet Count 133 thou/uL (130-400); Red Blood Cell (RBC) Count 3.74 mill/uL (4.70-6.10); White Blood Cell (WBC) Count 6.8 thou/uL (4.8-10.8)
[2021-05-09 08:38] LABS: Actual Bicarbonate (HCO3a) 40.9 mEq/L (22-28); Base Excess (BEa) 13.8 mEq/L (-2.0 to +3.0); Calcium, Ionized (arterial) 1.18 mmol/L (1.12-1.30); Carboxyhemoglobin (COHb) 1.7 gm% (0.0-3.0); Potassium - ABG Lab 3.89 mmol/L (3.70-5.30); pH, Arterial 7.43 (7.35-7.45)
[2021-05-09 08:55] LABS: ALT (SGPT) 24 U/L (8-55); AST (SGOT) 31 U/L (5-34); Alkaline Phosphatase 171 U/L (40-110); Anion Gap 15 mmol/L (10-20); BUN (Urea Nitrogen) 16 mg/dL (8.4-25.7); Bilirubin, Total 1.9 mg/dL (0.2-1.2); Calc. Creatinine Clearance 54 mL/min (70-130); Calcium 9.6 mg/dL (7.8-10.44); Carbon Dioxide 36 mmol/L (23-31); Chloride 95 mmol/L (98-107); Globulin 4.6 g/dL (2.4-3.5); Glucose 71 mg/dL (83-110); Potassium 4.1 mmol/L (3.5-5.1); Protein, Total 7.6 g/dL (5.8-8.1); Sodium 142 mmol/L (136-145)
[2021-05-09] MEDS: Furosemide 40 MG/4 ML VIAL SLOW IVP SCH ×2 (09:25→20:28)
[2021-05-09] MEDS: Ammonium Lactate 12% Lotion 225 GM BOT TOP SCH ×2 (09:25→21:00)
[2021-05-09] MEDS: Nystatin Cream 30 GM TUBE TOP SCH ×2 (09:34→21:07)
[2021-05-09 11:21] LABS: CO2 Tension 63.1 mmHg (35.0-45.0); Puncture Site RRA
[2021-05-09 11:22] LABS: ALV-art Gradient 81.325 mmHg (0-20)
[2021-05-10 04:01] LABS: #Eosinphils 0.7 thou/uL (0.0-0.7); #Monocytes 0.4 thou/uL (0.11-0.59); #Neutrophils 4.1 thou/uL (1.40-6.50); %Basophils 0.7 % (0.0-1.0); %Eosinophils 10.8 % (0.0-10.0); %Lymphocytes 15.4 % (21.0-51.0); %Neutrophils 67.1 % (42.0-75.0); Mean Corpuscular HGB CONC 31.6 g/dL (32.0-36.0); Mean Corpuscular Hemoglobin 31.8 pg (27.0-31.0); Mean Platelet Volume 7.2 fL (7.4-10.4); Platelet Count 133 thou/uL (130-400); Red Blood Cell (RBC) Count 4.09 mill/uL (4.70-6.10); White Blood Cell (WBC) Count 6.2 thou/uL (4.8-10.8)
[2021-05-10 04:18] LABS: ALT (SGPT) 23 U/L (8-55); AST (SGOT) 20 U/L (5-34); Alkaline Phosphatase 173 U/L (40-110); Anion Gap 13 mmol/L (10-20); BUN (Urea Nitrogen) 18 mg/dL (8.4-25.7); Bilirubin, Total 1.8 mg/dL (0.2-1.2); Calc. Creatinine Clearance 54 mL/min (70-130); Calcium 9.5 mg/dL (7.8-10.44); Carbon Dioxide 36 mmol/L (23-31); Chloride 91 mmol/L (98-107); Globulin 4.7 g/dL (2.4-3.5); Glucose 136 mg/dL (83-110); Potassium 4.1 mmol/L (3.5-5.1); Protein, Total 7.7 g/dL (5.8-8.1); Sodium 136 mmol/L (136-145)
[2021-05-10] MEDS: Levothyroxine Sodium 125 MCG TAB PO SCH (07:14)
[2021-05-10] MEDS: Potassium Chloride 20 MEQ TAB PO SCH ×3 (09:54→20:51)
[2021-05-10] MEDS: Furosemide 40 MG/4 ML VIAL SLOW IVP SCH ×2 (09:54→20:51)
[2021-05-10] MEDS: Aspirin 81 mg Enteric Coated Tablet PO SCH (09:54)
[2021-05-10] MEDS: Rifaximin 550 MG TAB PO SCH ×2 (09:54→20:51)
[2021-05-10] MEDS: Ammonium Lactate 12% Lotion 225 GM BOT TOP SCH ×2 (09:56→22:17)
[2021-05-10] MEDS: Spironolactone 100 MG TAB PO SCH ×2 (09:57→16:14)
[2021-05-10] MEDS: Nystatin Cream 30 GM TUBE TOP SCH ×2 (10:00→20:57)
[2021-05-10] MEDS: Lantus 1000 UNITS/10 ML VIAL SC SCH ×2 (10:53→20:58)
[2021-05-11] MEDS: Levothyroxine Sodium 125 MCG TAB PO SCH (04:48)
[2021-05-11] MEDS: HumaLOG 300 UNITS/3 ML VIAL SC PRN ×3 (04:50→17:28)
[2021-05-11 05:19] LABS: #Eosinphils 0.6 thou/uL (0.0-0.7); #Lymphocytes 1.5 thou/uL (1.20-3.40); #Monocytes 0.5 thou/uL (0.11-0.59); #Neutrophils 4.3 thou/uL (1.40-6.50); %Basophils 0.4 % (0.0-1.0); %Eosinophils 9.3 % (0.0-10.0); %Lymphocytes 21.1 % (21.0-51.0); %Monocytes 7.7 % (0.0-10.0); %Neutrophils 61.4 % (42.0-75.0); Hemoglobin 12.9 g/dL (14.0-18.0); Mean Corpuscular HGB CONC 32.1 g/dL (32.0-36.0); Mean Corpuscular Hemoglobin 32.5 pg (27.0-31.0); Mean Platelet Volume 7.4 fL (7.4-10.4); Platelet Count 151 thou/uL (130-400); RBC Distribution Width 15.3 % (11.5-14.5); Red Blood Cell (RBC) Count 3.98 mill/uL (4.70-6.10)
[2021-05-11 05:39] LABS: ALT (SGPT) 19 U/L (8-55); AST (SGOT) 18 U/L (5-34); Albumin 3.1 g/dL (3.4-4.8); Alkaline Phosphatase 160 U/L (40-110); Anion Gap 15 mmol/L (10-20); BUN (Urea Nitrogen) 22 mg/dL (8.4-25.7); Bilirubin, Total 1.9 mg/dL (0.2-1.2); Calc. Creatinine Clearance 62 mL/min (70-130); Calcium 9.2 mg/dL (7.8-10.44); Carbon Dioxide 31 mmol/L (23-31); Chloride 90 mmol/L (98-107); Globulin 4.6 g/dL (2.4-3.5); Glucose 214 mg/dL (83-110); Potassium 4.7 mmol/L (3.5-5.1); Protein, Total 7.7 g/dL (5.8-8.1); Sodium 131 mmol/L (136-145)
[2021-05-11] MEDS: Lantus 1000 UNITS/10 ML VIAL SC SCH ×2 (07:54→19:57)
[2021-05-11] MEDS: Nystatin Cream 30 GM TUBE TOP SCH ×2 (08:00→19:58)
[2021-05-11] MEDS: Rifaximin 550 MG TAB PO SCH ×2 (08:00→19:59)
[2021-05-11] MEDS: Spironolactone 100 MG TAB PO SCH ×2 (08:00→17:31)
[2021-05-11] MEDS: Aspirin 81 mg Enteric Coated Tablet PO SCH (08:01)
[2021-05-11] MEDS: Furosemide 40 MG/4 ML VIAL SLOW IVP SCH ×2 (08:01→19:57)
[2021-05-11] MEDS: Potassium Chloride 20 MEQ TAB PO SCH ×3 (08:01→19:59)
[2021-05-11] MEDS: Ammonium Lactate 12% Lotion 225 GM BOT TOP SCH ×2 (12:24→19:58)
[2021-05-12] MEDS: HumaLOG 300 UNITS/3 ML VIAL SC PRN ×3 (06:18→16:36)
[2021-05-12] MEDS: Levothyroxine Sodium 125 MCG TAB PO SCH (06:19)
[2021-05-12 07:34] LABS: ALT (SGPT) 20 U/L (8-55); AST (SGOT) 24 U/L (5-34); Albumin 3.1 g/dL (3.4-4.8); Alkaline Phosphatase 193 U/L (40-110); Anion Gap 14 mmol/L (10-20); BUN (Urea Nitrogen) 20 mg/dL (8.4-25.7); Bilirubin, Total 1.7 mg/dL (0.2-1.2); Calc. Creatinine Clearance 53 mL/min (70-130); Calcium 9.5 mg/dL (7.8-10.44); Carbon Dioxide 32 mmol/L (23-31); Chloride 91 mmol/L (98-107); Globulin 4.6 g/dL (2.4-3.5); Glucose 218 mg/dL (83-110); Potassium 4.4 mmol/L (3.5-5.1); Protein, Total 7.7 g/dL (5.8-8.1); Sodium 133 mmol/L (136-145)
[2021-05-12 07:38] LABS: #Eosinphils 0.5 thou/uL (0.0-0.7); #Lymphocytes 1.3 thou/uL (1.20-3.40); #Monocytes 0.3 thou/uL (0.11-0.59); #Neutrophils 3.6 thou/uL (1.40-6.50); %Basophils 0.6 % (0.0-1.0); %Eosinophils 8.7 % (0.0-10.0); %Lymphocytes 22.4 % (21.0-51.0); %Monocytes 5.9 % (0.0-10.0); %Neutrophils 62.5 % (42.0-75.0); Hemoglobin 12.6 g/dL (14.0-18.0); Mean Corpuscular HGB CONC 31.6 g/dL (32.0-36.0); Mean Corpuscular Hemoglobin 31.7 pg (27.0-31.0); Mean Platelet Volume 7.3 fL (7.4-10.4); Platelet Count 162 thou/uL (130-400); RBC Distribution Width 15.4 % (11.5-14.5); Red Blood Cell (RBC) Count 3.97 mill/uL (4.70-6.10); White Blood Cell (WBC) Count 5.7 thou/uL (4.8-10.8)
[2021-05-12] MEDS: Rifaximin 550 MG TAB PO SCH ×2 (08:57→20:21)
[2021-05-12] MEDS: Potassium Chloride 20 MEQ TAB PO SCH ×3 (08:57→20:21)
[2021-05-12] MEDS: Spironolactone 100 MG TAB PO SCH ×2 (08:57→16:32)
[2021-05-12] MEDS: Lantus 1000 UNITS/10 ML VIAL SC SCH ×2 (08:57→20:22)
[2021-05-12] MEDS: Furosemide 40 MG/4 ML VIAL SLOW IVP SCH ×2 (08:57→09:54)
[2021-05-12] MEDS: Aspirin 81 mg Enteric Coated Tablet PO SCH (08:57)
[2021-05-12] MEDS: Nystatin Cream 30 GM TUBE TOP SCH ×2 (14:39→20:20)
[2021-05-12] MEDS: Ammonium Lactate 12% Lotion 225 GM BOT TOP SCH ×2 (14:40→20:18)
[2021-05-12] MEDS: Torsemide 20 MG TAB PO SCH ×2 (14:41→20:21)
[2021-05-13 05:19] LABS: #Eosinphils 0.5 thou/uL (0.0-0.7); #Lymphocytes 1.2 thou/uL (1.20-3.40); #Monocytes 0.4 thou/uL (0.11-0.59); #Neutrophils 3.7 thou/uL (1.40-6.50); %Basophils 0.7 % (0.0-1.0); %Eosinophils 8.7 % (0.0-10.0); %Monocytes 6.2 % (0.0-10.0); %Neutrophils 63.4 % (42.0-75.0); Hemoglobin 12.9 g/dL (14.0-18.0); Mean Corpuscular HGB CONC 31.5 g/dL (32.0-36.0); Mean Corpuscular Hemoglobin 32.1 pg (27.0-31.0); Mean Platelet Volume 7.3 fL (7.4-10.4); Platelet Count 162 thou/uL (130-400); RBC Distribution Width 15.4 % (11.5-14.5); Red Blood Cell (RBC) Count 4.01 mill/uL (4.70-6.10); White Blood Cell (WBC) Count 5.9 thou/uL (4.8-10.8)
[2021-05-13] MEDS: Levothyroxine Sodium 125 MCG TAB PO SCH (05:41)
[2021-05-13 05:46] LABS: ALT (SGPT) 39 U/L (8-55); AST (SGOT) 50 U/L (5-34); Albumin 3.1 g/dL (3.4-4.8); Alkaline Phosphatase 249 U/L (40-110); Anion Gap 12 mmol/L (10-20); BUN (Urea Nitrogen) 15 mg/dL (8.4-25.7); Bilirubin, Total 1.7 mg/dL (0.2-1.2); Calc. Creatinine Clearance 49 mL/min (70-130); Calcium 9.7 mg/dL (7.8-10.44); Carbon Dioxide 33 mmol/L (23-31); Chloride 95 mmol/L (98-107); Globulin 4.7 g/dL (2.4-3.5); Glucose 153 mg/dL (83-110); Potassium 4.3 mmol/L (3.5-5.1); Protein, Total 7.8 g/dL (5.8-8.1); Sodium 136 mmol/L (136-145)
[2021-05-13] MEDS: Aspirin 81 mg Enteric Coated Tablet PO SCH (08:24)
[2021-05-13] MEDS: Torsemide 20 MG TAB PO SCH ×3 (08:24→20:29)
[2021-05-13] MEDS: Rifaximin 550 MG TAB PO SCH ×2 (08:24→20:29)
[2021-05-13] MEDS: Potassium Chloride 20 MEQ TAB PO SCH ×3 (08:24→20:29)
[2021-05-13] MEDS: Spironolactone 100 MG TAB PO SCH ×2 (08:24→16:18)
[2021-05-13] MEDS: Lantus 1000 UNITS/10 ML VIAL SC SCH ×2 (08:26→20:31)
[2021-05-13] MEDS: Ammonium Lactate 12% Lotion 225 GM BOT TOP SCH ×2 (13:01→20:28)
[2021-05-13] MEDS: Nystatin Cream 30 GM TUBE TOP SCH ×2 (13:01→20:27)
[2021-05-13] MEDS: HumaLOG 300 UNITS/3 ML VIAL SC PRN ×3 (13:02→20:31)
[2021-05-13 23:49] LABS: SARS-CoV-2 PCR by NAA Not Detected (NotDetected)
[2021-05-14] MEDS: Levothyroxine Sodium 125 MCG TAB PO SCH (05:05)
[2021-05-14 05:22] LABS: #Basophils 0.1 thou/uL (0.0-0.2); #Eosinphils 0.6 thou/uL (0.0-0.7); #Lymphocytes 1.1 thou/uL (1.20-3.40); #Monocytes 0.4 thou/uL (0.11-0.59); %Basophils 0.8 % (0.0-1.0); %Eosinophils 8.9 % (0.0-10.0); %Lymphocytes 15.5 % (21.0-51.0); %Monocytes 5.8 % (0.0-10.0); Hemoglobin 12.7 g/dL (14.0-18.0); Mean Corpuscular HGB CONC 33.8 g/dL (32.0-36.0); Mean Corpuscular Hemoglobin 34.4 pg (27.0-31.0); Mean Platelet Volume 7.3 fL (7.4-10.4); Platelet Count 154 thou/uL (130-400); RBC Distribution Width 15.5 % (11.5-14.5); White Blood Cell (WBC) Count 7.2 thou/uL (4.8-10.8)
[2021-05-14 05:44] LABS: ALT (SGPT) 60 U/L (8-55); AST (SGOT) 68 U/L (5-34); Albumin 3.2 g/dL (3.4-4.8); Alkaline Phosphatase 282 U/L (40-110); Anion Gap 10 mmol/L (10-20); BUN (Urea Nitrogen) 14 mg/dL (8.4-25.7); Bilirubin, Total 1.6 mg/dL (0.2-1.2); Calc. Creatinine Clearance 41 mL/min (70-130); Calcium 9.4 mg/dL (7.8-10.44); Carbon Dioxide 37 mmol/L (23-31); Chloride 91 mmol/L (98-107); Globulin 4.3 g/dL (2.4-3.5); Glucose 191 mg/dL (83-110); Potassium 4.5 mmol/L (3.5-5.1); Protein, Total 7.5 g/dL (5.8-8.1); Sodium 133 mmol/L (136-145)
[2021-05-14] MEDS: Rifaximin 550 MG TAB PO SCH ×2 (08:47→20:19)
[2021-05-14] MEDS: Aspirin 81 mg Enteric Coated Tablet PO SCH (08:47)
[2021-05-14] MEDS: Potassium Chloride 20 MEQ TAB PO SCH ×3 (08:48→20:19)
[2021-05-14] MEDS: Spironolactone 100 MG TAB PO SCH ×2 (08:48→15:43)
[2021-05-14] MEDS: Torsemide 20 MG TAB PO SCH ×3 (08:48→20:19)
[2021-05-14] MEDS: Lantus 1000 UNITS/10 ML VIAL SC SCH ×2 (09:30→20:23)
[2021-05-14] MEDS: HumaLOG 300 UNITS/3 ML VIAL SC PRN ×3 (13:46→20:24)
[2021-05-14] MEDS: Ammonium Lactate 12% Lotion 225 GM BOT TOP SCH ×2 (13:48→20:20)
[2021-05-14] MEDS: Nystatin Cream 30 GM TUBE TOP SCH ×2 (13:48→20:19)
[2021-05-14 16:03] LABS: Creatinine, Urine 31.76 mg/dL (63-166)
[2021-05-15 04:32] LABS: #Eosinphils 0.7 thou/uL (0.0-0.7); #Lymphocytes 1.2 thou/uL (1.20-3.40); #Monocytes 0.4 thou/uL (0.11-0.59); #Neutrophils 4.8 thou/uL (1.40-6.50); %Basophils 0.1 % (0.0-1.0); %Eosinophils 9.3 % (0.0-10.0); %Lymphocytes 16.4 % (21.0-51.0); %Monocytes 5.2 % (0.0-10.0); Hemoglobin 12.8 g/dL (14.0-18.0); Mean Corpuscular HGB CONC 30.8 g/dL (32.0-36.0); Mean Platelet Volume 7.5 fL (7.4-10.4); Platelet Count 157 thou/uL (130-400); RBC Distribution Width 15.6 % (11.5-14.5); Red Blood Cell (RBC) Count 4.12 mill/uL (4.70-6.10)
[2021-05-15 04:48] LABS: ALT (SGPT) 95 U/L (8-55); AST (SGOT) 107 U/L (5-34); Albumin 3.1 g/dL (3.4-4.8); Alkaline Phosphatase 309 U/L (40-110); Anion Gap 16 mmol/L (10-20); BUN (Urea Nitrogen) 16 mg/dL (8.4-25.7); Bilirubin, Total 1.5 mg/dL (0.2-1.2); Calc. Creatinine Clearance 39 mL/min (70-130); Calcium 9.9 mg/dL (7.8-10.44); Carbon Dioxide 33 mmol/L (23-31); Chloride 92 mmol/L (98-107); Globulin 4.6 g/dL (2.4-3.5); Glucose 127 mg/dL (83-110); Potassium 4.9 mmol/L (3.5-5.1); Protein, Total 7.7 g/dL (5.8-8.1); Sodium 136 mmol/L (136-145)
[2021-05-15] MEDS: Levothyroxine Sodium 125 MCG TAB PO SCH (06:20)
[2021-05-15] MEDS: Potassium Chloride 20 MEQ TAB PO SCH ×2 (08:19→15:31)
[2021-05-15] MEDS: Rifaximin 550 MG TAB PO SCH (08:19)
[2021-05-15] MEDS: Spironolactone 100 MG TAB PO SCH ×2 (08:19→15:32)
[2021-05-15] MEDS: Torsemide 20 MG TAB PO SCH (08:19)
[2021-05-15] MEDS: Aspirin 81 mg Enteric Coated Tablet PO SCH (08:19)
[2021-05-15] MEDS: Lantus 1000 UNITS/10 ML VIAL SC SCH (08:20)
[2021-05-15] MEDS: Ammonium Lactate 12% Lotion 225 GM BOT TOP SCH (08:21)
[2021-05-15] MEDS: Nystatin Cream 30 GM TUBE TOP SCH (08:21)
[2021-05-15] MEDS: HumaLOG 300 UNITS/3 ML VIAL SC PRN (12:27)
[2021-05-15 13:37] VITALS: BMI 27.5
[2021-05-15 15:31] VITALS: BP 124/77; TEMP 98.1
[2021-05-15] MEDS ORDERED: Torsemide 20 MG TAB PO SCH (21:00)
== END 2021-05-15 16:30 | DRG 441 ==
LOC: ERS 10:51 → T4-A 12:46 → ERHOLD 20:42 → T4-A 20:43 → IMCU/EMU 05-08 22:23 → T4-B 05-10 17:31
PROVIDERS: ADMIT Family Medicine; ATTEND Family Medicine
PROC: 5A09357 Assistance with Respiratory Ventilation, Less than 24 Consecutive Hours, Continuous Positive Airway Pressure (ICD-10-PCS; principal; 2021-05-08)
DX: K72.90 Hepatic failure, unspecified without coma (principal); J96.92 Respiratory failure, unspecified with hypercapnia; N17.9 Acute kidney failure, unspecified; I50.32 Chronic diastolic (congestive) heart failure; I48.21 Permanent atrial fibrillation; E87.3 Alkalosis; Z20.822 Contact with and (suspected) exposure to COVID-19; D53.9 Nutritional anemia, unspecified; K74.69 Other cirrhosis of liver; E89.0 Postprocedural hypothyroidism; Z96.651 Presence of right artificial knee joint; I11.0 Hypertensive heart disease with heart failure; L30.4 Erythema intertrigo; I48.91 Unspecified atrial fibrillation; I08.2 Rheumatic disorders of both aortic and tricuspid valves; E78.5 Hyperlipidemia, unspecified; I27.20 Pulmonary hypertension, unspecified; Z88.0 Allergy status to penicillin; Z86.711 Personal history of pulmonary embolism; Z87.891 Personal history of nicotine dependence; Z79.899 Other long term (current) drug therapy; Z79.82 Long term (current) use of aspirin; Z79.4 Long term (current) use of insulin; Z79.890 Hormone replacement therapy; Z79.01 Long term (current) use of anticoagulants; Z98.890 Other specified postprocedural states; Z87.440 Personal history of urinary (tract) infections
CPT/HCPCS: 36415; 36416; 36600; 71045; 80048; 80053; 81001; 82140; 82570; 82805; 83880; 83930; 83935; 84145; 84300; 84484; 84540; 85025; 85610; 85730; 87086; 93005; 93306; 94640; 94660; J1815; J1940; J7620; U0003; U0005

== ENCOUNTER 2021-06-15 02:27 | Inpatient (IN) | payer MEDICARE, BC ==
[2021-06-15 03:29] LABS: #Basophils 0.1 thou/uL (0.0-0.2); #Eosinphils 1.4 thou/uL (0.0-0.7); #Lymphocytes 1.3 thou/uL (1.20-3.40); #Monocytes 0.3 thou/uL (0.11-0.59); #Neutrophils 4.9 thou/uL (1.40-6.50); %Basophils 0.7 % (0.0-1.0); %Eosinophils 17.7 % (0.0-10.0); %Lymphocytes 16.4 % (21.0-51.0); %Monocytes 3.2 % (0.0-10.0); %Neutrophils 61.9 % (42.0-75.0); Hemoglobin 12.8 g/dL (14.0-18.0); Mean Corpuscular HGB CONC 33.9 g/dL (32.0-36.0); Mean Corpuscular Hemoglobin 34.8 pg (27.0-31.0); Mean Platelet Volume 6.8 fL (7.4-10.4); Platelet Count 153 thou/uL (130-400); RBC Distribution Width 16.5 % (11.5-14.5); Red Blood Cell (RBC) Count 3.69 mill/uL (4.70-6.10); White Blood Cell (WBC) Count 7.9 thou/uL (4.8-10.8)
[2021-06-15 03:38] LABS: INR-International Normal Ratio 1.1; Prothrombin Time 14.1 sec (12.0-14.7)
[2021-06-15 03:39] LABS: PTT 33.7 sec (22.9-36.1)
[2021-06-15 03:52] LABS: ALT (SGPT) 47 U/L (8-55); AST (SGOT) 25 U/L (5-34); Albumin 3.1 g/dL (3.4-4.8); Alkaline Phosphatase 206 U/L (40-110); Anion Gap 12 mmol/L (10-20); BUN (Urea Nitrogen) 10 mg/dL (8.4-25.7); Bilirubin, Total 1.5 mg/dL (0.2-1.2); Calc. Creatinine Clearance 0 mL/min (70-130); Calcium 8.7 mg/dL (7.8-10.44); Carbon Dioxide 26 mmol/L (23-31); Chloride 100 mmol/L (98-107); Globulin 3.7 g/dL (2.4-3.5); Glucose 282 mg/dL (83-110); Potassium 4.7 mmol/L (3.5-5.1); Protein, Total 6.8 g/dL (5.8-8.1); Sodium 133 mmol/L (136-145)
[2021-06-15] MEDS ORDERED: Ondansetron PF 4 MG/2 ML Vial IVP PRN (07:25)
[2021-06-15] MEDS ORDERED: Ondansetron ODT 4 MG TAB PO PRN (07:25)
[2021-06-15 07:51] LABS: Troponin I 0.015 ng/mL (< 0.028)
[2021-06-15] MEDS ORDERED: Dextrose 5% in Water 1,000 ML IV PRN (08:24)
[2021-06-15] MEDS ORDERED: Dextrose 50% Abboject 50 ML SYRINGE SLOW IVP PRN (08:24)
[2021-06-15] MEDS ORDERED: Furosemide 40 MG/4 ML VIAL SLOW IVP SCH (08:45)
[2021-06-15] MEDS ORDERED: Enoxaparin Sodium 40 MG/0.4 ML SYRINGE SC SCH (09:00)
[2021-06-15] MEDS ORDERED: Torsemide 20 MG TAB PO SCH (09:00)
[2021-06-15 09:05] LABS: SARS-CoV-2 NAA Rapid Test Not Detected (NotDetected)
[2021-06-15] MEDS: Spironolactone 100 MG TAB PO SCH ×2 (09:12→17:21)
[2021-06-15] MEDS: Rifaximin 550 MG TAB PO SCH ×2 (09:13→21:48)
[2021-06-15] MEDS: Aspirin 81 mg Enteric Coated Tablet PO SCH (09:13)
[2021-06-15] MEDS: Potassium Chloride 10 MEQ TAB PO SCH ×3 (09:13→21:48)
[2021-06-15] MEDS ORDERED: Furosemide 40 MG/4 ML VIAL ONE (10:23)
[2021-06-15] MEDS: Lantus 1000 UNITS/10 ML VIAL SC SCH ×2 (11:05→21:49)
[2021-06-15 11:19] LABS: Troponin I 0.018 ng/mL (< 0.028)
[2021-06-15] MEDS ORDERED: Iopamidol 370 76% 100 ML VIAL ONE (11:33)
[2021-06-15 13:44] VITALS: BMI 33.5
[2021-06-15] MEDS: HumaLOG 300 UNITS/3 ML VIAL SC PRN (17:22)
[2021-06-15] MEDS ORDERED: FLU VACC QS2021-22(65YR UP)/PF 240 MCG/0.7 ML SYRINGE IM ONE (18:00)
[2021-06-15] MEDS ORDERED: predniSONE 50 MG TAB ONE (21:35)
[2021-06-16 04:41] LABS: ALT (SGPT) 53 U/L (8-55); AST (SGOT) 36 U/L (5-34); Alkaline Phosphatase 195 U/L (40-110); Anion Gap 11 mmol/L (10-20); BUN (Urea Nitrogen) 10 mg/dL (8.4-25.7); Bilirubin, Total 1.8 mg/dL (0.2-1.2); Calc. Creatinine Clearance 83 mL/min (70-130); Calcium 9.1 mg/dL (7.8-10.44); Carbon Dioxide 27 mmol/L (23-31); Chloride 100 mmol/L (98-107); Globulin 3.8 g/dL (2.4-3.5); Glucose 202 mg/dL (83-110); Potassium 3.8 mmol/L (3.5-5.1); Protein, Total 6.8 g/dL (5.8-8.1); Sodium 134 mmol/L (136-145)
[2021-06-16 04:49] LABS: Band 7 % (5-11); Hypochromia SLIGHT = 6-15 cells (100X) (0-5/hpf); Lymphocytes 26 % (21-51); MDiff Complete? YES; Macrocytosis SLIGHT = 6-15 cells (100X) (0-5/hpf); Mean Corpuscular HGB CONC 33.7 g/dL (32.0-36.0); Mean Corpuscular Hemoglobin 34.7 pg (27.0-31.0); Mean Platelet Volume 6.6 fL (7.4-10.4); Monocytes 2 % (0-10); Neutrophil 65 % (42-75); Platelet Count 139 thou/uL (130-400); Platelet Morphology Comment Appears Adequate; RBC Distribution Width 16.6 % (11.5-14.5); Red Blood Cell (RBC) Count 3.76 mill/uL (4.70-6.10); White Blood Cell (WBC) Count 7.3 thou/uL (4.8-10.8)
[2021-06-16] MEDS: HumaLOG 300 UNITS/3 ML VIAL SC PRN ×3 (06:09→16:44)
[2021-06-16] MEDS: Levothyroxine Sodium 125 MCG TAB PO SCH (06:09)
[2021-06-16] MEDS ORDERED: Albumin 25% 25 GM/100 ML BOT IVPB SCH (08:45)
[2021-06-16] MEDS: Rifaximin 550 MG TAB PO SCH ×2 (09:17→21:10)
[2021-06-16] MEDS: Potassium Chloride 10 MEQ TAB PO SCH ×3 (09:17→21:10)
[2021-06-16] MEDS: Spironolactone 100 MG TAB PO SCH ×2 (09:18→16:44)
[2021-06-16] MEDS: Aspirin 81 mg Enteric Coated Tablet PO SCH (09:18)
[2021-06-16] MEDS: Lantus 1000 UNITS/10 ML VIAL SC SCH ×2 (10:22→21:11)
[2021-06-16] MEDS ORDERED: Furosemide 40 MG/4 ML VIAL SLOW IVP SCH ×2 (12:38→12:45)
[2021-06-17] MEDS: Levothyroxine Sodium 125 MCG TAB PO SCH (05:14)
[2021-06-17 07:17] LABS: ALT (SGPT) 52 U/L (8-55); AST (SGOT) 34 U/L (5-34); Albumin 3.1 g/dL (3.4-4.8); Alkaline Phosphatase 190 U/L (40-110); Anion Gap 10 mmol/L (10-20); BUN (Urea Nitrogen) 10 mg/dL (8.4-25.7); Bilirubin, Total 1.5 mg/dL (0.2-1.2); Calc. Creatinine Clearance 86 mL/min (70-130); Carbon Dioxide 28 mmol/L (23-31); Chloride 100 mmol/L (98-107); Globulin 3.7 g/dL (2.4-3.5); Glucose 113 mg/dL (83-110); Potassium 4.9 mmol/L (3.5-5.1); Protein, Total 6.8 g/dL (5.8-8.1); Sodium 133 mmol/L (136-145)
[2021-06-17 07:41] LABS: Band 3 % (5-11); Eosinophils 12 % (0-10); Hemoglobin 12.9 g/dL (14.0-18.0); Lymphocytes 21 % (21-51); MDiff Complete? YES; Mean Corpuscular HGB CONC 33.6 g/dL (32.0-36.0); Mean Corpuscular Hemoglobin 34.6 pg (27.0-31.0); Mean Platelet Volume 7.4 fL (7.4-10.4); Monocytes 2 % (0-10); Neutrophil 59 % (42-75); Platelet Count 134 thou/uL (130-400); Platelet Morphology Comment Appears Adequate; Polychromasia SLIGHT = 2-3 cells (100X) (0-2/hpf); RBC Distribution Width 16.6 % (11.5-14.5); Red Blood Cell (RBC) Count 3.72 mill/uL (4.70-6.10); White Blood Cell (WBC) Count 7.1 thou/uL (4.8-10.8)
[2021-06-17] MEDS: Rifaximin 550 MG TAB PO SCH (08:09)
[2021-06-17] MEDS: Spironolactone 100 MG TAB PO SCH (08:09)
[2021-06-17] MEDS: Aspirin 81 mg Enteric Coated Tablet PO SCH (08:09)
[2021-06-17] MEDS: Potassium Chloride 10 MEQ TAB PO SCH (08:09)
[2021-06-17] MEDS: Lantus 1000 UNITS/10 ML VIAL SC SCH (08:10)
[2021-06-17] MEDS ORDERED: Torsemide 20 MG TAB PO SCH (09:00)
[2021-06-17 11:23] VITALS: BP 116/55; TEMP 98
== END 2021-06-17 14:20 | disposition home or self-care (01) | DRG 441 ==
LOC: ERS 02:27 → ERHOLD 06:51 → 2NO 12:56
PROVIDERS: ADMIT Family Medicine; ATTEND Family Medicine
DX: K72.90 Hepatic failure, unspecified without coma (principal); I50.33 Acute on chronic diastolic (congestive) heart failure; I48.20 Chronic atrial fibrillation, unspecified; I11.0 Hypertensive heart disease with heart failure; E11.9 Type 2 diabetes mellitus without complications; E03.9 Hypothyroidism, unspecified; Z20.822 Contact with and (suspected) exposure to COVID-19; I35.0 Nonrheumatic aortic (valve) stenosis; K74.60 Unspecified cirrhosis of liver; I27.20 Pulmonary hypertension, unspecified; Z96.651 Presence of right artificial knee joint; Z88.0 Allergy status to penicillin; Z79.82 Long term (current) use of aspirin; Z79.899 Other long term (current) drug therapy; Z79.4 Long term (current) use of insulin; Z90.49 Acquired absence of other specified parts of digestive tract; Z90.89 Acquired absence of other organs; Z87.891 Personal history of nicotine dependence
CPT/HCPCS: 36415; 36416; 71045; 71275; 80053; 82140; 83880; 84443; 84484; 85007; 85025; 85027; 85610; 85730; 93005; J1815; J1940; P9047; Q9967; U0002

== ENCOUNTER 2021-07-14 12:25 | Inpatient (IN) | payer MEDICARE, BC ==
[~2021-07-14 12:25] MED LIST changes: +Heparin 1,000 UNITS/ML VIAL ONE; -Iopamidol-370 76% 500 ML 1 ML ONE
[2021-07-14 13:12] LABS: Actual Bicarbonate (HCO3a) 30.3 mEq/L (22-28); Analyzer IN Cardio ER; Base Excess (BEa) 4.4 mEq/L (-2.0 to +3.0); CO2 Tension 50.4 mmHg (35.0-45.0); Calcium, Ionized (arterial) 1.17 mmol/L (1.12-1.30); Carboxyhemoglobin (COHb) 1.6 gm% (0.0-3.0); Hemoglobin (Hb) 12.9 g/dL (14.0-18.0); O2 Tension (PaO2), arterial 95.5 mmHg (> 60.0); Potassium - ABG Lab 4.06 mmol/L (3.70-5.30); Puncture Site RBA
[2021-07-14 13:14] LABS: #Eosinphils 1.9 thou/uL (0.0-0.7); #Monocytes 0.4 thou/uL (0.11-0.59); #Neutrophils 4.9 thou/uL (1.40-6.50); %Basophils 0.6 % (0.0-1.0); %Eosinophils 23.5 % (0.0-10.0); %Lymphocytes 11.6 % (21.0-51.0); %Monocytes 5.1 % (0.0-10.0); %Neutrophils 59.2 % (42.0-75.0); Hemoglobin 13.2 g/dL (14.0-18.0); Mean Corpuscular HGB CONC 31.7 g/dL (32.0-36.0); Mean Corpuscular Hemoglobin 34.2 pg (27.0-31.0); Mean Platelet Volume 6.7 fL (7.4-10.4); Platelet Count 173 thou/uL (130-400); Red Blood Cell (RBC) Count 3.87 mill/uL (4.70-6.10); White Blood Cell (WBC) Count 8.2 thou/uL (4.8-10.8)
[2021-07-14] MEDS ORDERED: Furosemide 20 MG/2 ML VIAL ONE (13:24)
[2021-07-14 13:30] LABS: Lactic Acid 1.7 mmol/L (0.5-2.2)
[2021-07-14 13:31] LABS: Bacteria/HPF 4+ HPF (None Seen); Bilirubin Negative (Negative); Blood, Urine 1+ (Negative); Clarity Turbid (Clear); Glucose, Urine (Dipstick) Greater than 1000 mg/dL (Negative); Ketone, Urine Negative (Negative); Leukocyte 500 Leu/uL (Negative); Nitrite Negative (Negative); Protein, Urine (Dipstick) 30 mg/dL (Neg-Trace); Specific Gravity, Urine 1.024 (1.002-1.036); Squamous Epithelial 0-3 HPF (0-3); WBC/HPF Greater than 50 HPF (0-3); pH, Urine 5.5 (5.0-9.0)
[2021-07-14 13:33] LABS: Anisocytosis SLIGHT = 6-15 cells (100X) (0-5/hpf); MDiff Complete? YES; Macrocytosis SLIGHT = 6-15 cells (100X) (0-5/hpf); Platelet Morphology Comment Appears Adequate; Polychromasia SLIGHT = 2-3 cells (100X) (0-2/hpf)
[2021-07-14 13:40] LABS: ALT (SGPT) 14 U/L (8-55); AST (SGOT) 14 U/L (5-34); Albumin 3.1 g/dL (3.4-4.8); Alkaline Phosphatase 139 U/L (40-110); Anion Gap 12 mmol/L (10-20); BUN (Urea Nitrogen) 14 mg/dL (8.4-25.7); Bilirubin, Total 2.2 mg/dL (0.2-1.2); Calc. Creatinine Clearance 0 mL/min (70-130); Carbon Dioxide 30 mmol/L (23-31); Chloride 93 mmol/L (98-107); Globulin 4.4 g/dL (2.4-3.5); Glucose 316 mg/dL (83-110); Potassium 4.5 mmol/L (3.5-5.1); Protein, Total 7.5 g/dL (5.8-8.1); Sodium 130 mmol/L (136-145)
[2021-07-14] MEDS ORDERED: VANCOMYCIN 2 GRAM/400 ML BAG 2 GM in Premix Bag 1 BAG IVPB SCH (13:45)
[2021-07-14 14:01] LABS: SARS-CoV-2 NAA Rapid Test Not Detected (NotDetected)
[2021-07-14] MEDS ORDERED: Ondansetron PF 4 MG/2 ML Vial IVP PRN (14:40)
[2021-07-14] MEDS ORDERED: Ondansetron ODT 4 MG TAB PO PRN (14:40)
[2021-07-14] MEDS ORDERED: Dextrose 5% in Water 1,000 ML IV PRN (14:45)
[2021-07-14] MEDS ORDERED: Dextrose 50% Abboject 50 ML SYRINGE SLOW IVP PRN (14:45)
[2021-07-14] MEDS ORDERED: Albumin 25% 25 GM/100 ML BOT IVPB SCH (15:30)
[2021-07-14 15:33] LABS: INR-International Normal Ratio 1.2; PTT 35.2 sec (22.9-36.1); Prothrombin Time 15.2 sec (12.0-14.7)
[2021-07-14] MEDS ORDERED: diphenhydrAMINE 50 MG/ML VIAL IVP PRN ×2 (15:47→16:22)
[2021-07-14] MEDS: Spironolactone 100 MG TAB PO SCH (18:31)
[2021-07-14] MEDS: cefTRIAXone\\ROCEPHIN 1 GM in Sodium Chloride 0.9% 100 ML IVPB SCH (18:31)
[2021-07-14] MEDS: Clotrimazole 1 % Cream 30 GM TUBE TOP SCH (22:09)
[2021-07-14] MEDS: Potassium Chloride 10 MEQ TAB PO SCH (22:10)
[2021-07-14] MEDS: HumaLOG 300 UNITS/3 ML VIAL SC PRN (22:10)
[2021-07-14] MEDS ORDERED: Melatonin 3 MG TAB PO PRN (22:32)
[2021-07-15 04:25] LABS: ALT (SGPT) 15 U/L (8-55); AST (SGOT) 15 U/L (5-34); Albumin 3.1 g/dL (3.4-4.8); Alkaline Phosphatase 136 U/L (40-110); Anion Gap 15 mmol/L (10-20); BUN (Urea Nitrogen) 13 mg/dL (8.4-25.7); Bilirubin, Total 2.2 mg/dL (0.2-1.2); Calc. Creatinine Clearance 82 mL/min (70-130); Carbon Dioxide 27 mmol/L (23-31); Chloride 94 mmol/L (98-107); Globulin 4.2 g/dL (2.4-3.5); Glucose 347 mg/dL (83-110); Protein, Total 7.3 g/dL (5.8-8.1); Sodium 132 mmol/L (136-145)
[2021-07-15 04:46] LABS: #Eosinphils 1.3 thou/uL (0.0-0.7); #Lymphocytes 0.9 thou/uL (1.20-3.40); #Monocytes 0.4 thou/uL (0.11-0.59); #Neutrophils 6.2 thou/uL (1.40-6.50); %Basophils 0.5 % (0.0-1.0); %Eosinophils 14.8 % (0.0-10.0); %Lymphocytes 9.7 % (21.0-51.0); %Monocytes 4.9 % (0.0-10.0); %Neutrophils 70.2 % (42.0-75.0); Hemoglobin 12.2 g/dL (14.0-18.0); Mean Corpuscular HGB CONC 33.7 g/dL (32.0-36.0); Mean Corpuscular Hemoglobin 36.1 pg (27.0-31.0); Mean Platelet Volume 6.9 fL (7.4-10.4); Platelet Count 157 thou/uL (130-400); RBC Distribution Width 15.5 % (11.5-14.5); Red Blood Cell (RBC) Count 3.38 mill/uL (4.70-6.10); White Blood Cell (WBC) Count 8.9 thou/uL (4.8-10.8)
[2021-07-15] MEDS: Levothyroxine Sodium 125 MCG TAB PO SCH (06:37)
[2021-07-15] MEDS: HumaLOG 300 UNITS/3 ML VIAL SC PRN ×4 (06:43→21:48)
[2021-07-15] MEDS ORDERED: FLU VACC QS2021-22(65YR UP)/PF 240 MCG/0.7 ML SYRINGE IM ONE (09:00)
[2021-07-15] MEDS: Spironolactone 100 MG TAB PO SCH ×2 (09:24→15:50)
[2021-07-15] MEDS: Aspirin 81 mg Enteric Coated Tablet PO SCH (09:24)
[2021-07-15] MEDS: Enoxaparin Sodium 40 MG/0.4 ML SYRINGE SC SCH (09:24)
[2021-07-15] MEDS: Potassium Chloride 10 MEQ TAB PO SCH ×3 (09:24→21:25)
[2021-07-15] MEDS: Clotrimazole 1 % Cream 30 GM TUBE TOP SCH ×2 (09:25→21:24)
[2021-07-15] MEDS: Furosemide 40 MG/4 ML VIAL SLOW IVP SCH (09:29)
[2021-07-15] MEDS ORDERED: Lantus 1000 UNITS/10 ML VIAL SC SCH ×2 (13:45→21:00)
[2021-07-15] MEDS: cefTRIAXone\\ROCEPHIN 1 GM in Sodium Chloride 0.9% 100 ML IVPB SCH (15:50)
[2021-07-15] MEDS ORDERED: Meropenem 1 GM in Sodium Chloride 0.9% 100 ML IVPB SCH (17:00)
[2021-07-15] MEDS ORDERED: Furosemide 40 MG/4 ML VIAL SLOW IVP SCH (18:00)
[2021-07-15] MEDS: Tamsulosin HCl 0.4 MG CAP PO SCH (21:25)
[2021-07-16] MEDS: Meropenem 1 GM in Sodium Chloride 0.9% 100 ML IVPB SCH ×3 (00:49→16:37)
[2021-07-16 05:11] LABS: #Eosinphils 0.9 thou/uL (0.0-0.7); #Lymphocytes 1.4 thou/uL (1.20-3.40); #Monocytes 0.8 thou/uL (0.11-0.59); %Basophils 0.1 % (0.0-1.0); %Eosinophils 11.1 % (0.0-10.0); %Lymphocytes 17.2 % (21.0-51.0); %Monocytes 9.4 % (0.0-10.0); %Neutrophils 62.2 % (42.0-75.0); Hemoglobin 10.2 g/dL (14.0-18.0); Mean Corpuscular HGB CONC 30.6 g/dL (32.0-36.0); Mean Corpuscular Hemoglobin 33.1 pg (27.0-31.0); Mean Platelet Volume 7.4 fL (7.4-10.4); Platelet Count 121 thou/uL (130-400); RBC Distribution Width 15.6 % (11.5-14.5); Red Blood Cell (RBC) Count 3.08 mill/uL (4.70-6.10); White Blood Cell (WBC) Count 8.1 thou/uL (4.8-10.8)
[2021-07-16] MEDS: Levothyroxine Sodium 125 MCG TAB PO SCH (06:02)
[2021-07-16 06:04] LABS: ALT (SGPT) 21 U/L (8-55); AST (SGOT) 26 U/L (5-34); Albumin 3.1 g/dL (3.4-4.8); Alkaline Phosphatase 151 U/L (40-110); Anion Gap 12 mmol/L (10-20); BUN (Urea Nitrogen) 9 mg/dL (8.4-25.7); Bilirubin, Total 1.7 mg/dL (0.2-1.2); Calc. Creatinine Clearance 71 mL/min (70-130); Calcium 9.2 mg/dL (7.8-10.44); Carbon Dioxide 31 mmol/L (23-31); Chloride 100 mmol/L (98-107); Globulin 4.3 g/dL (2.4-3.5); Glucose 178 mg/dL (83-110); Potassium 4.3 mmol/L (3.5-5.1); Protein, Total 7.4 g/dL (5.8-8.1); Sodium 139 mmol/L (136-145)
[2021-07-16] MEDS: HumaLOG 300 UNITS/3 ML VIAL SC PRN (06:06)
[2021-07-16] MEDS: Aspirin 81 mg Enteric Coated Tablet PO SCH ×2 (09:14→09:41)
[2021-07-16] MEDS: Potassium Chloride 10 MEQ TAB PO SCH ×4 (09:14→20:55)
[2021-07-16] MEDS: Spironolactone 100 MG TAB PO SCH ×3 (09:16→16:53)
[2021-07-16] MEDS: Lantus 1000 UNITS/10 ML VIAL SC SCH ×2 (09:17→20:54)
[2021-07-16] MEDS: Furosemide 40 MG/4 ML VIAL SLOW IVP SCH (09:17)
[2021-07-16] MEDS: Clotrimazole 1 % Cream 30 GM TUBE TOP SCH ×2 (09:39→20:56)
[2021-07-16] MEDS: Enoxaparin Sodium 40 MG/0.4 ML SYRINGE SC SCH (10:28)
[2021-07-16 11:20] LABS: Actual Bicarbonate (HCO3a) 38.1 mEq/L (22-28); Base Excess (BEa) 8.6 mEq/L (-2.0 to +3.0); Calcium, Ionized (arterial) 1.26 mmol/L (1.12-1.30); Carboxyhemoglobin (COHb) 2.2 gm% (0.0-3.0); Hemoglobin (Hb) 16.5 g/dL (14.0-18.0); O2 Tension (PaO2), arterial 77.9 mmHg (> 60.0); Potassium - ABG Lab 4.06 mmol/L (3.70-5.30); pH, Arterial 7.34 (7.35-7.45)
[2021-07-16 11:23] LABS: Puncture Site RRA
[2021-07-16] MEDS: Tamsulosin HCl 0.4 MG CAP PO SCH (21:01)
[2021-07-17] MEDS: Meropenem 1 GM in Sodium Chloride 0.9% 100 ML IVPB SCH ×4 (00:13→23:42)
[2021-07-17] MEDS: Levothyroxine Sodium 125 MCG TAB PO SCH (04:39)
[2021-07-17 04:56] LABS: Hemoglobin 12.4 g/dL (14.0-18.0); Mean Corpuscular HGB CONC 33.4 g/dL (32.0-36.0); Mean Corpuscular Hemoglobin 36.8 pg (27.0-31.0); Mean Platelet Volume 8.3 fL (7.4-10.4); Platelet Count 116 thou/uL (130-400); RBC Distribution Width 15.4 % (11.5-14.5); Red Blood Cell (RBC) Count 3.37 mill/uL (4.70-6.10); White Blood Cell (WBC) Count 8.6 thou/uL (4.8-10.8)
[2021-07-17 05:15] LABS: #Eosinphils 1.4 thou/uL (0.0-0.7); #Lymphocytes 0.8 thou/uL (1.20-3.40); #Monocytes 0.4 thou/uL (0.11-0.59); #Neutrophils 5.9 thou/uL (1.40-6.50); %Basophils 0.5 % (0.0-1.0); %Eosinophils 16.5 % (0.0-10.0); %Lymphocytes 9.6 % (21.0-51.0); %Monocytes 5.1 % (0.0-10.0); %Neutrophils 68.3 % (42.0-75.0); MDiff Complete? YES; Macrocytosis SLIGHT = 6-15 cells (100X) (0-5/hpf); Platelet Morphology Comment Appears Decreased
[2021-07-17 05:23] LABS: ALT (SGPT) 17 U/L (8-55); AST (SGOT) 27 U/L (5-34); Albumin 2.9 g/dL (3.4-4.8); Alkaline Phosphatase 135 U/L (40-110); Anion Gap 12 mmol/L (10-20); BUN (Urea Nitrogen) 13 mg/dL (8.4-25.7); Bilirubin, Total 1.5 mg/dL (0.2-1.2); Calc. Creatinine Clearance 64 mL/min (70-130); Calcium 9.1 mg/dL (7.8-10.44); Carbon Dioxide 32 mmol/L (23-31); Chloride 99 mmol/L (98-107); Globulin 4.6 g/dL (2.4-3.5); Glucose 219 mg/dL (83-110); Potassium 5.1 mmol/L (3.5-5.1); Protein, Total 7.5 g/dL (5.8-8.1); Sodium 138 mmol/L (136-145)
[2021-07-17] MEDS: HumaLOG 300 UNITS/3 ML VIAL SC PRN ×3 (05:48→18:33)
[2021-07-17] MEDS: Lantus 1000 UNITS/10 ML VIAL SC SCH ×2 (10:02→20:58)
[2021-07-17] MEDS: Aspirin 81 mg Enteric Coated Tablet PO SCH (10:02)
[2021-07-17] MEDS: Spironolactone 100 MG TAB PO SCH ×2 (10:02→16:44)
[2021-07-17] MEDS: Potassium Chloride 10 MEQ TAB PO SCH ×3 (10:02→20:58)
[2021-07-17] MEDS: Clotrimazole 1 % Cream 30 GM TUBE TOP SCH ×2 (10:12→20:59)
[2021-07-17] MEDS: Furosemide 40 MG/4 ML VIAL SLOW IVP SCH (10:23)
[2021-07-17] MEDS: Enoxaparin Sodium 40 MG/0.4 ML SYRINGE SC SCH (12:39)
[2021-07-17] MEDS: Tamsulosin HCl 0.4 MG CAP PO SCH (20:58)
[2021-07-18 05:05] LABS: ALT (SGPT) 21 U/L (8-55); AST (SGOT) 28 U/L (5-34); Albumin 2.8 g/dL (3.4-4.8); Alkaline Phosphatase 168 U/L (40-110); Anion Gap 16 mmol/L (10-20); BUN (Urea Nitrogen) 16 mg/dL (8.4-25.7); Bilirubin, Total 1.6 mg/dL (0.2-1.2); Calc. Creatinine Clearance 71 mL/min (70-130); Calcium 9.5 mg/dL (7.8-10.44); Carbon Dioxide 24 mmol/L (23-31); Chloride 100 mmol/L (98-107); Globulin 4.4 g/dL (2.4-3.5); Glucose 87 mg/dL (83-110); Potassium 4.9 mmol/L (3.5-5.1); Protein, Total 7.2 g/dL (5.8-8.1); Sodium 135 mmol/L (136-145)
[2021-07-18 05:37] LABS: #Eosinphils 1.4 thou/uL (0.0-0.7); #Lymphocytes 0.4 thou/uL (1.20-3.40); #Monocytes 0.5 thou/uL (0.11-0.59); %Basophils 0.3 % (0.0-1.0); %Eosinophils 14.8 % (0.0-10.0); %Lymphocytes 3.9 % (21.0-51.0); %Monocytes 5.8 % (0.0-10.0); %Neutrophils 75.2 % (42.0-75.0); Hemoglobin 13.1 g/dL (14.0-18.0); Mean Corpuscular HGB CONC 32.1 g/dL (32.0-36.0); Mean Corpuscular Hemoglobin 34.8 pg (27.0-31.0); Mean Platelet Volume 7.7 fL (7.4-10.4); Platelet Count 69 thou/uL (130-400); Platelet Morphology Comment Appears Decreased; RBC Distribution Width 15.2 % (11.5-14.5); Red Blood Cell (RBC) Count 3.76 mill/uL (4.70-6.10); White Blood Cell (WBC) Count 9.3 thou/uL (4.8-10.8)
[2021-07-18] MEDS: Levothyroxine Sodium 125 MCG TAB PO SCH (05:40)
[2021-07-18] MEDS: Clotrimazole 1 % Cream 30 GM TUBE TOP SCH ×2 (08:43→20:30)
[2021-07-18] MEDS: Spironolactone 100 MG TAB PO SCH ×2 (08:43→15:43)
[2021-07-18] MEDS: Potassium Chloride 10 MEQ TAB PO SCH ×3 (08:43→20:30)
[2021-07-18] MEDS: Aspirin 81 mg Enteric Coated Tablet PO SCH (08:43)
[2021-07-18] MEDS: Furosemide 40 MG/4 ML VIAL SLOW IVP SCH (08:43)
[2021-07-18] MEDS: Lantus 1000 UNITS/10 ML VIAL SC SCH ×2 (08:44→20:32)
[2021-07-18] MEDS: Meropenem 1 GM in Sodium Chloride 0.9% 100 ML IVPB SCH (11:36)
[2021-07-18] MEDS: HumaLOG 300 UNITS/3 ML VIAL SC PRN (17:16)
[2021-07-18 19:38] LABS: Chlamydia trachomatis by NAA Negative (Negative)
[2021-07-18] MEDS: Tamsulosin HCl 0.4 MG CAP PO SCH (20:30)
[2021-07-19] MEDS: Meropenem 1 GM in Sodium Chloride 0.9% 100 ML IVPB SCH ×2 (01:02→11:50)
[2021-07-19 04:50] LABS: ALT (SGPT) 23 U/L (8-55); AST (SGOT) 29 U/L (5-34); Albumin 2.9 g/dL (3.4-4.8); Alkaline Phosphatase 205 U/L (40-110); Anion Gap 10 mmol/L (10-20); BUN (Urea Nitrogen) 19 mg/dL (8.4-25.7); Bilirubin, Total 1.4 mg/dL (0.2-1.2); Calc. Creatinine Clearance 71 mL/min (70-130); Calcium 9.7 mg/dL (7.8-10.44); Carbon Dioxide 32 mmol/L (23-31); Chloride 98 mmol/L (98-107); Globulin 4.2 g/dL (2.4-3.5); Glucose 104 mg/dL (83-110); Mean Corpuscular HGB CONC 31.8 g/dL (32.0-36.0); Mean Corpuscular Hemoglobin 34.8 pg (27.0-31.0); Mean Platelet Volume 7.3 fL (7.4-10.4); Platelet Count 113 thou/uL (130-400); Potassium 5.4 mmol/L (3.5-5.1); Protein, Total 7.1 g/dL (5.8-8.1); RBC Distribution Width 15.1 % (11.5-14.5); Red Blood Cell (RBC) Count 3.45 mill/uL (4.70-6.10); Sodium 135 mmol/L (136-145); White Blood Cell (WBC) Count 6.9 thou/uL (4.8-10.8)
[2021-07-19 05:27] LABS: #Eosinphils 1.1 thou/uL (0.0-0.7); #Lymphocytes 0.7 thou/uL (1.20-3.40); #Monocytes 0.4 thou/uL (0.11-0.59); #Neutrophils 4.7 thou/uL (1.40-6.50); %Basophils 0.3 % (0.0-1.0); %Eosinophils 15.4 % (0.0-10.0); %Lymphocytes 10.4 % (21.0-51.0); %Neutrophils 67.9 % (42.0-75.0); MDiff Complete? YES; Macrocytosis SLIGHT = 6-15 cells (100X) (0-5/hpf); Platelet Morphology Comment Appears Decreased
[2021-07-19] MEDS: Levothyroxine Sodium 125 MCG TAB PO SCH (05:45)
[2021-07-19] MEDS: Furosemide 40 MG/4 ML VIAL SLOW IVP SCH ×3 (08:39→22:11)
[2021-07-19] MEDS: Lantus 1000 UNITS/10 ML VIAL SC SCH ×2 (08:39→21:50)
[2021-07-19] MEDS: Spironolactone 100 MG TAB PO SCH ×2 (08:39→15:50)
[2021-07-19] MEDS: Aspirin 81 mg Enteric Coated Tablet PO SCH (08:39)
[2021-07-19] MEDS: Clotrimazole 1 % Cream 30 GM TUBE TOP SCH ×2 (08:40→21:48)
[2021-07-19] MEDS: Tamsulosin HCl 0.4 MG CAP PO SCH ×2 (21:49→22:11)
[2021-07-20] MEDS: Meropenem 1 GM in Sodium Chloride 0.9% 100 ML IVPB SCH (02:31)
[2021-07-20 04:59] LABS: ALT (SGPT) 28 U/L (8-55); AST (SGOT) 37 U/L (5-34); Alkaline Phosphatase 261 U/L (40-110); Anion Gap 10 mmol/L (10-20); BUN (Urea Nitrogen) 24 mg/dL (8.4-25.7); Bilirubin, Total 1.6 mg/dL (0.2-1.2); Calc. Creatinine Clearance 71 mL/min (70-130); Calcium 9.7 mg/dL (7.8-10.44); Carbon Dioxide 36 mmol/L (23-31); Chloride 96 mmol/L (98-107); Globulin 4.5 g/dL (2.4-3.5); Glucose 116 mg/dL (83-110); Potassium 5.1 mmol/L (3.5-5.1); Protein, Total 7.5 g/dL (5.8-8.1); Sodium 137 mmol/L (136-145)
[2021-07-20 05:37] LABS: #Eosinphils 1.2 thou/uL (0.0-0.7); #Lymphocytes 0.9 thou/uL (1.20-3.40); #Monocytes 0.4 thou/uL (0.11-0.59); #Neutrophils 4.6 thou/uL (1.40-6.50); %Basophils 0.3 % (0.0-1.0); %Eosinophils 16.6 % (0.0-10.0); %Lymphocytes 12.6 % (21.0-51.0); %Monocytes 5.8 % (0.0-10.0); %Neutrophils 64.6 % (42.0-75.0); Hemoglobin 12.4 g/dL (14.0-18.0); Mean Corpuscular HGB CONC 33.6 g/dL (32.0-36.0); Mean Corpuscular Hemoglobin 36.2 pg (27.0-31.0); Mean Platelet Volume 7.4 fL (7.4-10.4); Platelet Count 114 thou/uL (130-400); RBC Distribution Width 14.9 % (11.5-14.5); Red Blood Cell (RBC) Count 3.42 mill/uL (4.70-6.10); White Blood Cell (WBC) Count 7.1 thou/uL (4.8-10.8)
[2021-07-20] MEDS: Levothyroxine Sodium 125 MCG TAB PO SCH (06:34)
[2021-07-20] MEDS: cefTRIAXone\\ROCEPHIN 2 GM in Sodium Chloride 0.9% 100 ML IVPB SCH (10:02)
[2021-07-20] MEDS: Torsemide 20 MG TAB PO SCH ×2 (10:02→15:00)
[2021-07-20] MEDS: Enoxaparin Sodium 40 MG/0.4 ML SYRINGE SC SCH (10:02)
[2021-07-20] MEDS: Aspirin 81 mg Enteric Coated Tablet PO SCH (10:02)
[2021-07-20] MEDS: Lantus 1000 UNITS/10 ML VIAL SC SCH ×2 (10:03→21:00)
[2021-07-20] MEDS: Clotrimazole 1 % Cream 30 GM TUBE TOP SCH ×2 (10:03→22:00)
[2021-07-20] MEDS: Spironolactone 100 MG TAB PO SCH ×2 (10:07→17:03)
[2021-07-21] MEDS: Tamsulosin HCl 0.4 MG CAP PO SCH ×2 (00:38→20:32)
[2021-07-21 04:33] LABS: #Basophils 0.1 thou/uL (0.0-0.2); #Eosinphils 1.4 thou/uL (0.0-0.7); #Lymphocytes 0.8 thou/uL (1.20-3.40); #Monocytes 0.5 thou/uL (0.11-0.59); #Neutrophils 4.4 thou/uL (1.40-6.50); %Basophils 1.1 % (0.0-1.0); %Eosinophils 19.2 % (0.0-10.0); %Lymphocytes 11.6 % (21.0-51.0); %Monocytes 6.7 % (0.0-10.0); %Neutrophils 61.4 % (42.0-75.0); Hemoglobin 12.4 g/dL (14.0-18.0); Mean Corpuscular HGB CONC 32.5 g/dL (32.0-36.0); Mean Corpuscular Hemoglobin 35.5 pg (27.0-31.0); Mean Platelet Volume 7.5 fL (7.4-10.4); Platelet Count 119 thou/uL (130-400); RBC Distribution Width 14.8 % (11.5-14.5); Red Blood Cell (RBC) Count 3.49 mill/uL (4.70-6.10); White Blood Cell (WBC) Count 7.1 thou/uL (4.8-10.8)
[2021-07-21 04:45] LABS: ALT (SGPT) 31 U/L (8-55); AST (SGOT) 41 U/L (5-34); Albumin 2.7 g/dL (3.4-4.8); Alkaline Phosphatase 272 U/L (40-110); Anion Gap 14 mmol/L (10-20); BUN (Urea Nitrogen) 23 mg/dL (8.4-25.7); Bilirubin, Total 1.3 mg/dL (0.2-1.2); Calc. Creatinine Clearance 87 mL/min (70-130); Calcium 9.4 mg/dL (7.8-10.44); Carbon Dioxide 29 mmol/L (23-31); Chloride 96 mmol/L (98-107); Globulin 4.5 g/dL (2.4-3.5); Potassium 4.9 mmol/L (3.5-5.1); Protein, Total 7.2 g/dL (5.8-8.1); Sodium 134 mmol/L (136-145)
[2021-07-21 04:47] LABS: Glucose 40 mg/dL (83-110)
[2021-07-21] MEDS: Levothyroxine Sodium 125 MCG TAB PO SCH (05:47)
[2021-07-21] MEDS: cefTRIAXone\\ROCEPHIN 2 GM in Sodium Chloride 0.9% 100 ML IVPB SCH (08:38)
[2021-07-21] MEDS: Enoxaparin Sodium 40 MG/0.4 ML SYRINGE SC SCH (08:38)
[2021-07-21] MEDS: Torsemide 20 MG TAB PO SCH ×2 (08:39→16:20)
[2021-07-21] MEDS: Spironolactone 100 MG TAB PO SCH ×2 (08:39→16:20)
[2021-07-21] MEDS: Aspirin 81 mg Enteric Coated Tablet PO SCH (08:39)
[2021-07-21] MEDS: Clotrimazole 1 % Cream 30 GM TUBE TOP SCH ×2 (08:39→20:45)
[2021-07-21] MEDS: Lantus 1000 UNITS/10 ML VIAL SC SCH ×2 (08:40→20:46)
[2021-07-21 10:14] VITALS: BMI 29.7
[2021-07-21 17:49] LABS: SARS-CoV-2 PCR by NAA Not Detected (NotDetected)
[2021-07-22] MEDS: Levothyroxine Sodium 125 MCG TAB PO SCH (06:04)
[2021-07-22] MEDS: Enoxaparin Sodium 40 MG/0.4 ML SYRINGE SC SCH (08:23)
[2021-07-22] MEDS: Potassium Chloride 10 MEQ TAB PO SCH ×2 (08:23→14:02)
[2021-07-22] MEDS: Spironolactone 100 MG TAB PO SCH (08:23)
[2021-07-22] MEDS: Aspirin 81 mg Enteric Coated Tablet PO SCH (08:23)
[2021-07-22] MEDS: cefTRIAXone\\ROCEPHIN 2 GM in Sodium Chloride 0.9% 100 ML IVPB SCH (08:23)
[2021-07-22] MEDS: Torsemide 20 MG TAB PO SCH ×2 (08:23→14:02)
[2021-07-22] MEDS: Clotrimazole 1 % Cream 30 GM TUBE TOP SCH (08:24)
[2021-07-22] MEDS: Lantus 1000 UNITS/10 ML VIAL SC SCH (08:24)
[2021-07-22 11:00] LABS: #Basophils 0.1 thou/uL (0.0-0.2); #Eosinphils 0.8 thou/uL (0.0-0.7); #Lymphocytes 1.1 thou/uL (1.20-3.40); #Monocytes 0.6 thou/uL (0.11-0.59); #Neutrophils 4.5 thou/uL (1.40-6.50); %Basophils 0.7 % (0.0-1.0); %Eosinophils 11.8 % (0.0-10.0); %Lymphocytes 15.3 % (21.0-51.0); %Monocytes 8.2 % (0.0-10.0); Hemoglobin 12.2 g/dL (14.0-18.0); Mean Corpuscular HGB CONC 31.4 g/dL (32.0-36.0); Mean Corpuscular Hemoglobin 34.3 pg (27.0-31.0); Mean Platelet Volume 8.3 fL (7.4-10.4); Platelet Count 117 thou/uL (130-400); RBC Distribution Width 15.1 % (11.5-14.5); Red Blood Cell (RBC) Count 3.56 mill/uL (4.70-6.10)
[2021-07-22 11:22] LABS: ALT (SGPT) 48 U/L (8-55); AST (SGOT) 74 U/L (5-34); Alkaline Phosphatase 400 U/L (40-110); Anion Gap 14 mmol/L (10-20); BUN (Urea Nitrogen) 24 mg/dL (8.4-25.7); Bilirubin, Total 1.1 mg/dL (0.2-1.2); Calc. Creatinine Clearance 51 mL/min (70-130); Calcium 9.3 mg/dL (7.8-10.44); Carbon Dioxide 34 mmol/L (23-31); Chloride 91 mmol/L (98-107); Globulin 4.8 g/dL (2.4-3.5); Glucose 151 mg/dL (83-110); Potassium 5.2 mmol/L (3.5-5.1); Protein, Total 7.8 g/dL (5.8-8.1); Sodium 134 mmol/L (136-145)
[2021-07-22 11:33] VITALS: TEMP 97.4
[2021-07-22 12:53] VITALS: BP 132/58
== END 2021-07-22 14:25 | disposition swing bed (61) | DRG 291 ==
LOC: ERS 12:25 → ERHOLD 13:35 → 2NO 17:37
PROVIDERS: ADMIT Family Medicine; ATTEND Internal Medicine
PROC: 5A09357 Assistance with Respiratory Ventilation, Less than 24 Consecutive Hours, Continuous Positive Airway Pressure (ICD-10-PCS; 2021-07-14)
PROC: 02HV33Z Insertion of Infusion Device into Superior Vena Cava, Percutaneous Approach (ICD-10-PCS; principal; 2021-07-21)
PROC: B5181ZA Fluoroscopy of Superior Vena Cava using Low Osmolar Contrast, Guidance (ICD-10-PCS; 2021-07-21)
PROC: B548ZZA Ultrasonography of Superior Vena Cava, Guidance (ICD-10-PCS; 2021-07-21)
DX: I11.0 Hypertensive heart disease with heart failure (principal); Z66 Do not resuscitate; Z20.822 Contact with and (suspected) exposure to COVID-19; Z51.5 Encounter for palliative care; I50.43 Acute on chronic combined systolic (congestive) and diastolic (congestive) heart failure; J96.21 Acute and chronic respiratory failure with hypoxia; K72.00 Acute and subacute hepatic failure without coma; J96.22 Acute and chronic respiratory failure with hypercapnia; E87.4 Mixed disorder of acid-base balance; N39.0 Urinary tract infection, site not specified; I47.2 Ventricular tachycardia; I48.21 Permanent atrial fibrillation; Z16.24 Resistance to multiple antibiotics; R18.8 Other ascites; N17.9 Acute kidney failure, unspecified; K74.60 Unspecified cirrhosis of liver; N41.1 Chronic prostatitis; L30.4 Erythema intertrigo; E03.9 Hypothyroidism, unspecified; B36.8 Other specified superficial mycoses; I27.22 Pulmonary hypertension due to left heart disease; N48.1 Balanitis; K72.10 Chronic hepatic failure without coma; I25.5 Ischemic cardiomyopathy; J44.9 Chronic obstructive pulmonary disease, unspecified; L98.499 Non-pressure chronic ulcer of skin of other sites with unspecified severity; B96.1 Klebsiella pneumoniae [K. pneumoniae] as the cause of diseases classified elsewhere; E66.9 Obesity, unspecified; I08.2 Rheumatic disorders of both aortic and tricuspid valves; E87.5 Hyperkalemia; E11.649 Type 2 diabetes mellitus with hypoglycemia without coma; Z68.29 Body mass index [BMI] 29.0-29.9, adult; Z88.0 Allergy status to penicillin; Z28.21 Immunization not carried out because of patient refusal; Z79.899 Other long term (current) drug therapy; Z79.82 Long term (current) use of aspirin; Z79.01 Long term (current) use of anticoagulants; Z79.890 Hormone replacement therapy; Z79.4 Long term (current) use of insulin
CPT/HCPCS: 36415; 36416; 36569; 36600; 51701; 71045; 80053; 81003; 81015; 82140; 82248; 82805; 83605; 83615; 83735; 83880; 84145; 84484; 85025; 85610; 85730; 87040; 87070; 87077; 87086; 87186; 87205; 87491; 87591; 93005; 96365; 96366; 96367; 96374; 96375; C1751; J0696; J1644; J1650; J1815; J1940; J1956; J2185; J3370; J3490; P9047; U0002; U0003; U0005